=== PATIENT | female | born 1965 | race American Indian/Alaskan Native ===

== ENCOUNTER 2017-03-12 15:03 | Emergency (ER) | payer OTHER ==
[~2017-03-12] VITALS: Ht 162.6 cm; Wt 56.7 kg
[~2017-03-12 15:03] MED LIST: ANAPROX DS550 MG PO; CLARITIN10 MG PO; CRUTCH1 EACH; CYCLOBENZAPRINE5 MG PO; IBUPROFEN600 MG PO; IBUPROFEN800 MG PO; NAPROXEN500 MG PO; NORCO 5-325 TA1 EACH PO; PREDNISONE10 MG PO; TRAMADOL HCL50 MG PO; TYLENOL325 MG PO; ZOFRAN ODT4 MG PO; ZOLOFT25 MG PO
== END 2017-03-12 15:20 | disposition home or self-care (01) ==
LOC: ED 15:03
DX: Z00.8 Encounter for other general examination (principal)

== ENCOUNTER 2017-04-29 17:32 | Emergency (ER) | payer OTHER ==
[~2017-04-29] VITALS: Ht 162.6 cm; Wt 56.7 kg
== END 2017-04-29 17:58 | disposition home or self-care (01) ==
LOC: ED 17:32
DX: S69.82XD Other specified injuries of left wrist, hand and finger(s), subsequent encounter (principal); F32.9 Major depressive disorder, single episode, unspecified; X58.XXXD Exposure to other specified factors, subsequent encounter; Z90.710 Acquired absence of both cervix and uterus; Z88.8 Allergy status to other drugs, medicaments and biological substances; Z79.899 Other long term (current) drug therapy
CPT/HCPCS: 99282

== ENCOUNTER 2017-08-12 11:17 | Emergency (ER) | payer OTHER ==
[~2017-08-12] VITALS: Ht 162.6 cm; Wt 56.7 kg
== END 2017-08-12 11:38 | disposition home or self-care (01) ==
LOC: ED 11:17
DX: M25.531 Pain in right wrist (principal)

== ENCOUNTER 2018-01-22 17:17 | Emergency (ER) | payer OTHER ==
[~2018-01-22] VITALS: Ht 162.6 cm; Wt 52.2 kg
== END 2018-01-22 19:53 | disposition home or self-care (01) ==
LOC: ED 17:17
DX: S00.01XA Abrasion of scalp, initial encounter (principal); F10.129 Alcohol abuse with intoxication, unspecified; F17.200 Nicotine dependence, unspecified, uncomplicated; Z88.6 Allergy status to analgesic agent; Z88.8 Allergy status to other drugs, medicaments and biological substances; Z79.899 Other long term (current) drug therapy; W19.XXXA Unspecified fall, initial encounter; Y09 Assault by unspecified means
CPT/HCPCS: 99283

== ENCOUNTER 2019-05-12 21:22 | Emergency (ER) | payer OTHER ==
[~2019-05-12] VITALS: Ht 162.6 cm; Wt 54.0 kg
[~2019-05-12 21:22] MED LIST changes: +IBUPROFEN400 MG PO; +ONDANSETRON HCL4 MG PO; +POTASSIUM CHLO20 ME1 PO
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
[2019-05-12] MEDS ORDERED: POTASSIUM CHLO20 ME1 PO (23:09)
== END 2019-05-12 23:25 | disposition home or self-care (01) ==
LOC: ED 21:22
DX: F10.129 Alcohol abuse with intoxication, unspecified (principal); F12.129 Cannabis abuse with intoxication, unspecified; E87.6 Hypokalemia; F32.9 Major depressive disorder, single episode, unspecified; F17.200 Nicotine dependence, unspecified, uncomplicated; Z88.6 Allergy status to analgesic agent; Z88.8 Allergy status to other drugs, medicaments and biological substances; Z79.899 Other long term (current) drug therapy
CPT/HCPCS: 80053; 81001; 85025; 96360; 99285-25; G0480; J7030

== ENCOUNTER 2019-06-22 20:01 | Emergency (ER) | payer OTHER ==
[~2019-06-22] VITALS: Ht 162.6 cm; Wt 54.0 kg
--- OUTSIDE RECORDS SUMMARY | ~2019-06-22 | XMS | Clinical Summary ---
Demographics + + + | Address | [address] | | | [place] [address] | + + + | Home Phone | | + + + | Preferred Language | Unknown | + + + | Marital Status | | + + + | Pentecostal Affiliation | 1041 | + + + | Race | Unknown | + + + | Ethnic Group | Unknown | + + + Author + + + | Author | [facility] (Historical as of | | | 04-22-19) | + + + | Organization | [facility] (Historical as of | | | 04-22-19) | + + + | Address | Unknown | + + + | Phone | Unavailable | + + + Support + + +---------+ + | Name | Relationship | Address | Phone | + + +---------+ + | Margo Hinson | ECON | Unknown | | + + +---------+ + Care Team Providers + +------+ + | Care Senior Scheduler Name | Role | Phone | + +------+ + | Marek Vargas MD | PP | | + +------+ + Allergies Not on File Current Medications Not on file Active Problems Not on file Social History + +-------+ +--------+------+ | Tobacco [...] on file | | + + + Plan of Treatment Not on file Results Not on filefrom Last 3 Months"
--- OUTSIDE RECORDS SUMMARY | ~2019-06-22 | XMS | Clinical Summary ---
Demographics + + + | Address | [address] | | | [place] [address] | + + + | Home Phone | | + + + | Preferred Language | Unknown | + + + | Marital Status | | + + + | Catholic Affiliation | Unknown | + + + | Race | Unknown | + + + | Ethnic Group | Unknown | + + + Author + + + | Author | [facility] | | | and [place] | + + + | Organization | [facility] | | | and [place] | + + + | Address | Unknown | + + + | Phone | Unavailable | + + + Care Team Providers + +------+ + | Care Form Grader Name | Role | Phone | + +------+ + | Anat Pickett | PCP | | + +------+ + Allergies Not on File Medications Not on file Active Problems Not [...] on file | | + + + + + + + | Job Start Date | Occupation | Industry | + + + + | Not on file | Not on file | Not on file | + + + + + + + + | Travel History | Travel Start | Travel End | + + + + + + | No recent travel history available. | + + Last Filed Vital Signs Not on file Plan of Treatment +--------+---------+ + + + | Date | Type | Specialty | Care Team | Description | +--------+---------+ + + + | 07/06/ | Office | Otolaryngology | Gino Camara MD | | | 2019 | Visit | | [address] [place] | | | | | | [address], | | | | | | [place] [address] | | | | | | [phone] | | | | | | | | +--------+---------+ + + + + + + + + | Health Maintenance | Due Date | Last Done | Comments | + + + + + | Hepatitis C | | | | | Screening | 5 | | | + + + + + | Vaccine: | | | | | Dtap/Tdap/Td (1 - | 4 | | | | Tdap) | | | | + + + + + | Cervical Cancer | | | | | Screening (Pap) | 5 | | | + + + + + | Breast Cancer | | | | | Screening | 0 | | | + + + + + | Colorectal Cancer | 11/23/201 | | | | Screening | 5 | | | | (Colonoscopy) | | | | + + + + + | Vaccine: Zoster (1 | | | | | of 2) | 5 | | | + + + + + | Vaccine: Influenza | | | | | (#1) | 9 | | | + + + + + Results Not on filefrom Last 3 Months Insurance + +--------+ +--------+ +---------+--------+ | Payer | Benefi | Subscriber | Effect | Phone | Address | Type | | | t Plan | ID | flavio | | | | | | / | | Dates | | | | | | Group | | | | | | + +--------+ +--------+ +---------+--------+ | [facility] | IHS | | | | | Indemn | | SERVICE | YELLOW | | 019-Pr | | | ity | | | HAWK | | esent | | | | + +--------+ +--------+ +---------+--------+ | [employer] | CAREOR | [id number] | | [phone] | | Medica | | HMO | EGON | | 019-Pr | 0 | | id | | | COLUMB | | esent | | | | | | [place] | | | | | | | | PACIFI | | | | | | | | C GUNNER'S MATE G | | | | | | | | MDCD | | | | | | | | HMO OR | | | | | | + +--------+ +--------+ +---------+--------+ + +--------+ +--------+ + + | Guarantor Name | Accoun | Relation to | Date | Phone | Billing Address | | | t Type | Patient | of | | | | | | | | | | + +--------+ +--------+ + + | Steffi Bishop | Person | Self [birth year] | [address] | | | [place] | | 1965 | [phone] | [place] [address] | | | [place] | | | [address] (Home) | | + +--------+ +--------+ + + Advance Directives Patient has advance care planning documents on file. For more information, please contact:[facility] [place] [address]"
--- OUTSIDE RECORDS SUMMARY | ~2019-06-22 | XMS | Clinical Summary ---
Demographics + + + | Address | [address] | | | [place] [address] | + + + | Home Phone | | + + + | Preferred Language | Unknown | + + + | Marital Status | | + + + | Spiritism Affiliation | 1041 | + + + | Race | Unknown | + + + | Ethnic Group | Unknown | + + + Author + + + | Author | [facility] (Historical as of | | | 04-22-19) | + + + | Organization | [facility] (Historical as of | | | 04-22-19) [...] Team Providers + +------+ + | Care Eyeglass Frames Inspector Name | Role | Phone | [...]
--- OUTSIDE RECORDS SUMMARY | ~2019-06-22 | XMS | Clinical Summary ---
Demographics + + + | Address | [address] | | | [place] [address] | + + + | Home Phone | | + + + | Preferred Language | Unknown | + + + | Marital Status | | + + + | Anabaptism Affiliation | Unknown | + + + | Race | Unknown | + + + | Ethnic Group | Unknown | + + + Author + + + | Author | [facility] | | | and [place] | + + + | Organization | [facility] | | | and [place] | + + + | Address | Unknown | + + + | Phone | Unavailable | + + + Care Team Providers + +------+ + | Care Vice President Biostatistics Name | Role | Phone | + [...] 2019 | Visit | | [address] [place] | | | | | | [address], | | | | | | [place] [address] | | | | | | [phone] | | | | | | | [...] | | + +--------+ +--------+ +---------+--------+ | [employer] | IHS | | | | | Indemn | | SERVICE | YELLOW | | 019-Pr | | | ity | | | HAWK | | esent | | | | + +--------+ +--------+ +---------+--------+ | [employer] | CAREOR | [id number] | | [phone] | | Medica | | HMO | EGON | | 019-Pr | 0 | | id | | | [place]UMB | | esent | | | | | | [place] | | | | | | | | PACIFI | | | | | | | | C FAIRING WORKER | | | | | | | [...] | | Grace | | 1965 | [phone] | [place] [address] | | | [place] | | | 6 (Home) | | + +--------+ +--------+ + + Advance Directives Patient has advance care planning documents on file. For more information, please contact:[facility] [place] [address]"
--- OUTSIDE RECORDS SUMMARY | 2019-06-22 20:04 | XMS ---
PreManage Notification: SATHYA CUETO Security Event Operations Manager Events No recent Security Events currently on file CRITERIA MET - [facility] CARE PROVIDERS SHEFALI GOLDBERG [facility] 06/21/2018-Current PHONE: Unknown RUBY [facility] Clinic/Center: [facility] 12/26/2018-[facility] AT PHONE: [phone] Chandler Gastelum Locomotive Mechanic Apprentice/Animal Handler Current [facility] Regional Care Team PHONE: [phone] [facility] Primary Care 12/26/2018-[facility] AT RUBY PHONE: [phone] Guidelines Source: [facility] Guidelines Date: 01/18/2019 Care Coordination: Client receives services at [facility]. For discharge planning and coordination of care, please contact client\T\#39;s\T\nbsp;Animal Handler: Quita Banuelos [facility]\T\nbsp; [phone] Care History Medical/Surgical 07/20/2018 [facility] - PATIENT WAS SEEN BY PCP ON 06/15/18. - PATIENT HAS NO SHOWED TO APTS FOR THE PAST YEAR THE LAST PCP APT WAS ON . 07/19/2018 [facility] \T\middot;\T\nbsp; PATIENT IS A [employer] MEMBER. \T\middot;\T\nbsp; [facility]ERGENT [facility]ICAL NEED[facility]. \T\middot;\ T\nbsp; [facility]ENTS SAME DAY FOR [facility]TS IF PATIENT CALLS FIRST THING IN THE MORNING. E.D. VISIT COUNT (12 MO.) 3 [facility]. TOTAL 3 NOTE: Visits indicate total known visits. ED/UCC VISIT TRACKING (12 MO.) 06/22/2019 20:02 [facility]ia OR TYPE: Emergency COMPLAINT: - POSS SEUZURE 05/12/2019 21:23 MORE Dia OR TYPE: Emergency COMPLAINT: - WEAKNESS, NAUSEA DIAGNOSES: - Allergy status to analgesic agent status - Hypokalemia - Allergy status to oth drug/meds/biol subst status - Nicotine dependence, unspecified, uncomplicated - Alcohol abuse with intoxication, unspecified - Cannabis abuse with intoxication, unspecified - Other dedicated intermodal truck driver (current) drug therapy - Major depressive disorder, single episode, unspecified 07/18/2018 18:13 MORE Dia OR TYPE: Emergency COMPLAINT: - R HAND LAC DIAGNOSES: - Exposure to other specified factors, initial encounter - Other chcf (current) drug therapy - Laceration without foreign body of right hand, init encntr - Major depressive disorder, single episode, unspecified - Nicotine dependence, unspecified, uncomplicated - Allergy status to oth drug/meds/biol subst status INPATIENT VISIT TRACKING (12 MO.) No inpatient visits to display in this time frame [email or web address]
--- NOTE | 2019-06-23 13:02 | EKG ---
[facility] [address] [place] [address] Signed Sinus tachycardia with fusion complexes Right bundle branch block Left anterior fascicular block Bifascicular block Prolonged QT Abnormal ECG When compared with ECG of 17-JUN-2018 17:54, fusion complexes are now present Vent. rate has increased BY 41 BPM Left anterior fascicular block is now present Non-specific change in ST segment in Anterior leads Confirmed by JOHN RUST MD ([id number]) on 06/23/2019 1:02:18 PM Electronically Signed By: JOHN RUST MD 06/23/19 1302 PATIENT NAME: SATHYA CUETO Electrocardiogram DATE OF : 65 PHYSICIAN: JOHN RUST MD REPORT #: [id number] REPORT IS CONFIDENTIAL AND NOT TO BE RELEASED WITHOUT AUTHORIZATION
== END 2019-06-22 22:40 | disposition short-term general hospital (02) ==
LOC: ED 20:01
DX: G40.901 Epilepsy, unspecified, not intractable, with status epilepticus (principal); F17.200 Nicotine dependence, unspecified, uncomplicated; Z88.6 Allergy status to analgesic agent; Z88.8 Allergy status to other drugs, medicaments and biological substances; F32.9 Major depressive disorder, single episode, unspecified; Z79.899 Other long term (current) drug therapy
CPT/HCPCS: 31500; 31720; 36600; 51702; 70450; 71045; 80053; 81001; 82803; 83605; 85025; 93005; 93010; 94002; 99285-25; G0480; J0330; J1953; J2060; J7030; J7060

== ENCOUNTER 2019-07-24 10:31 | Observation (INO) | payer MEDICAID, OTHER ==
[~2019-07-24] VITALS: Ht 162.6 cm; Wt 54.0 kg
--- OUTSIDE RECORDS SUMMARY | ~2019-07-24 | XMS | Encounter Summary ---
Demographics + + + | Address | [address] | | | [place] [address] | + + + | Home Phone | | + + + | Preferred Language | Unknown | + + + | Marital Status | Single | + + + | Druze Affiliation | 1041 | + + + | Race | Unknown | + + + | Ethnic Group | Unknown | + + + Author + + + | Author | [facility] | | | and [place] | + + + | Organization | [facility] | | | [...] Team Providers + +------+ + | Care Fire Prevention Research Engineer Name | Role | Phone | + +------+ + PCP | Unavailable | + +------+ + Encounter Details +--------+ + + + + | Date | Type | Department | Care Team | Description | +--------+ + + + + | 08/18/ | Hospital | [facility] [place] | Conversion | Pain | | 2013 | Encounter | CONVERSION [address] | Transaction, | | | | | [address] | Provider Unknown | | | | | [place] | | | | | | [phone] | (Fax) | | | | | [phone] | | | +--------+ + + + [...] recent travel history available. | + + documented as of this encounter Plan of Treatment +--------+---------+ + + + | Date | Type | Specialty | Care Team | Description | +--------+---------+ + + + | 08/07/ | Office | Otolaryngology | Gino Camara MD | | | 2019 | Visit | | [address] [place] | | | | | | [address], | | | | | | [place] [address] | | | | | | [phone] | | | | | | | | +--------+---------+ + + + documented as of this encounter Procedures + +--------+ [...]
--- OUTSIDE RECORDS SUMMARY | ~2019-07-24 | XMS | Encounter Summary ---
Demographics + + + | Address | [address] | | | [place] [address] | + + + | Home Phone | | + + + | Preferred Language | Unknown | + + + | Marital Status | Single | + + + | Anglican Affiliation | 1041 | + + + | Race | Unknown | + + + | Ethnic Group | Unknown | + + + Author + + + | Author | [facility] | | | and [place] | + + + | Organization | [facility] | | [...] Team Providers + +------+ + | Care Manager Green Name | Role | Phone | + +------+ + PCP | Unavailable | + +------+ + Encounter Details +--------+ + + + + | Date | Type | Department | Care Team | Description | +--------+ + + + + | 08/18/ | Hospital | [facility] [place] IP | Conversion | Pain | | 2013 | Encounter | CONVERSION [address] | Transaction, | | | | | [address] | Provider Unknown | | | | | [place] | | | | | | [phone] | (Fax) | | | | | [phone] | | | +--------+ + + + [...] [place], | | | | | | [place] [address] | | | | | | [phone] | | | | | | | [...]
--- OUTSIDE RECORDS SUMMARY | ~2019-07-24 | XMS | Encounter Summary ---
Demographics + + + | Address | [address] | | | [place] [address] | + + + | Home Phone | | + + + | Preferred Language | Unknown | + + + | Marital Status | Single | + + + | Faith Affiliation | 1041 | + + + | Race | Unknown | + + + | Ethnic Group | Unknown | + + + Author + + + | Author | [facility] | | | and [place] | + + + | Organization | [facility] | | [...] Team Providers + +------+ + | Care Benefits Assistant Name | Role | Phone | + +------+ + PCP | Unavailable | + +------+ + Encounter Details +--------+ + + + + | Date | Type | Department | Care Team | Description | +--------+ + + + + | 08/18/ | Hospital | [facility] [place] [place] | Conversion | Pain | | 2013 | Encounter | CONVERSION [address] | Transaction, | | | | | [address] | Provider Unknown | | | | | [place] | | | | | | [phone] | (Fax) | | | | | [phone] | | | +--------+ + + + [...] [place], | | | | | | [place] [address] | | | | | | [phone] | | | | | | | [...] for this | | | e | 5:26 AM | | procedure are in the | | | | PDT | | results section. | + +--------+ + + + documented in this encounter Results XR Chest 1 Vw (05/06/2009 5:26 AM PDT) + + | Specimen | [...]
--- OUTSIDE RECORDS SUMMARY | ~2019-07-24 | XMS | Encounter Summary ---
Demographics + + + | Address | [address] | | | [place] [address] | + + + | Home Phone [...] Organization | [facility] [...] Team Providers + +------+ + | Care Feather Separator Name | Role | Phone | + +------+ + PCP | Unavailable | + +------+ + Encounter Details +--------+ + + + + | Date | Type | Department | Care Team | Description | +--------+ + + + + | 08/18/ | Hospital | [facility] | Conversion | Pain | | 2013 | Encounter | CONVERSION [address] | Transaction, | | | | | [address] | Provider Unknown | | | | | [place] | | | | | | [phone] | (Fax) | | | | | [phone] | | | +--------+ + + + [...] [place], | | | | | | [place] [address] | | | | | | [phone] | | | | | | | [...]
--- OUTSIDE RECORDS SUMMARY | ~2019-07-24 | XMS | Encounter Summary ---
Demographics + + + | Address | [address] | | | [place] [address] | + + + | Home Phone | | + + + | Preferred Language | Unknown | + + + | Marital Status | Single | + + + | Worship Affiliation | [phone] | + + + [...] Team Providers + +------+ + | Care Terrazzo Layer Name | Role | Phone | + [...] Provider Unknown | | | | | [place] | | | | | | [phone] | (Fax) | | | | | [phone] | | | +--------+ + + + [...] [place], | | | | | | [place] [address] | | | | | | [phone] | | | | | | | [...]
--- OUTSIDE RECORDS SUMMARY | ~2019-07-24 | XMS | Encounter Summary ---
Demographics + + + | Address | [address] | | | [place] [address] | + + + | Home Phone | | + + + | Preferred Language | Unknown | + + + | Marital Status | Single | + + + | Christian Affiliation | 1041 | + + + | Race | Unknown | + + + | Ethnic Group | Unknown | + + + Author + + + | Author | [facility] | | | and [place] | + + + | Organization | [facility] | | | [...] Team Providers + +------+ + | Care Airport Planner Name | Role | Phone | + +------+ + | Anat Pickett | PCP | | + +------+ + Reason for Referral Evaluate & Treat (Routine) + + + + + + + | Status | Reason | Specialty | Diagnoses / | Referred By | Referred To | | | | | Procedures | Contact | Contact | + + + + + + + | Pending | Specialty | Home Health | Diagnoses | Saniya, | | | Review | Services | Services | Status | MD Beto | | | | Required | | epilepticus | [address] | | | | | | ([facility]) | COURT | | | | | | | [place], [place] | | | | | | | [address] | | | | | | | Phone: | | | | | | | [phone] | | | | | | | Fax: | | | | | | | [phone] | | + + + + + + + Reason for Visit Auth/Cert +--------+--------+ + + + + | Status | Reason | Specialty | Diagnoses / | Referred By | Referred To | | | | | Procedures | Contact | Contact | +--------+--------+ + + + + | | | | Diagnoses | | | | | | | Seizure | | | +--------+--------+ + + + + Encounter Details +--------+ + + + + | Date | Type | Department | Care Team | Description | +--------+ + + + + | 06/22/ | Hospital | [facility] | Cary Chapa DO | Status epilepticus | | 2019 - | Encounter | [facility] | [address] | ([facility]); Generalized | | | | CARE FLOOR [address] | [place] [address] | tonic-clonic seizure | | 07/03/ | | [address] | [phone] | ([facility]); H/O ETOH | | 2019 | | [place], [place] | | abuse; Polysubstance | | | | [address] | Deepak Stanton MD | abuse ([facility]); | | | | [phone] | [address] | Methamphetamine | | | | | [place] [address] | intoxication ([facility]); | | | | | [phone] | 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[facility]); | | | | | | Post-ictal state | | | | | Beto Kothari MD [address] | ([facility]); Altered | | | | | [address] | mental status, | | | | | [place] [address] | unspecified altered | | | | | [phone] | mental status type; | | | | | | Seng coma scale | | | | | Freddy Gastelum MD | total score 3-8, at | | | | | [address] [facility] | hospital admission | | | | | [place], [place] | ([facility]); Hypotension, | | | | | [address] | unspecified | | | | | | hypotension type; | | | | | | Orthostatic | | | | | | hypotension; History | | | | | | of posttraumatic | | | | | | stress disorder | | | | | | (PTSD) | +--------+ + + + + Social [...] + + + | Blood Pressure | 98/66 | 07/03/2019 4:38 PM | | | | | PDT | | + + + + + | Pulse | 73 | 07/03/2019 4:38 PM | | | | | PDT | | + + + + + | Temperature | 36.7 C (98 F) | 07/03/2019 4:38 PM | | | | | PDT | | + + + + + | Respiratory Rate | 16 | 07/03/2019 4:38 PM | | | | | PDT | | + + + + + | Oxygen Saturation | 97% | 07/03/2019 4:38 PM | | | | | PDT | | + + + + + | Inhaled Oxygen | - | - | | | Concentration | | | | + + + + + | Weight | 53.3 kg (117 lb 8.1 | 07/02/2019 8:00 PM | per chart | | | oz) | PDT | | + + + + + | Height | 162.6 cm (5' 4") | 06/22/2019 11:35 PM | | | | | PDT | | + + + + + | Body Mass Index | 20.17 | 06/22/2019 11:35 PM | | | | | PDT [...] + + documented as of this encounter Discharge Summaries Beto Kothari MD - 06/30/2019 8:17 AM PDTFormatting of this note might be different from sofi borden. [facility] Service: Hospitalist Discharge Summary Date of Admission: 06/22/2019 Date of Discharge: 07/03/2019 Discharge Physician: Beto Kothari MD Treatment Team: Anastasia Argueta MD Discharge Diagnoses: Principal Problem: Status epilepticus Active Problems: Smoker History of alcohol abuse Major depressive disorder Chronic hepatitis C without hepatic coma History of posttraumatic stress disorder (PTSD) Post-ictal state Methamphetamine intoxication MDMA abuse Resolved Problems: Generalized tonic-clonic seizure . Procedures: * No surgery found * Significant Diagnostic Studies: Recent Results (from the past 360 hour(s)) XR Chest AP Portable Narrative CHEST PORTABLE ONE VIEW CLINICAL INFORMATION: Endotracheal tube and orogastric tube placement. COMPARISON: Earlier examination of this same date. Impression 1. The tip of the endotracheal tube is 2.3 cm above the óscar. There is an NG tube which extends into the stomach. 2. There is patchy opacity in the left lung base suggesting atelectasis. Right lung clear. 3. Cardiomediastinal contours are stable. 4. No pneumothorax. Signed by: Curiel, M.D., Zully Sign Date/Time: 06/23/2019 12:23 AM XR Chest AP Portable Narrative CHEST PORTABLE ONE VIEW CLINICAL INFORMATION: New central line. COMPARISON: XR CHEST AP PORTABLE (06/22/2019); FINDINGS: A left-sided central line is been placed. The tip of the catheter is 6 cm below the óscar at the cavoatrial junction. No pneumothorax is noted. The endotracheal tube tip is 3.9 cm above the óscar. Nasogastric tube is seen coursing through the mediastinum below the acquired vyhzt-uy-noor into the upper abdomen. Overlying EKG leads and oxygen tubing are noted. The heart is normal in size. The vascular pattern appears relatively normal. There is mild atelectasis at the right lung base near the hemidiaphragm. The osseous structures are intact. Impression Left-sided central line, endotracheal tube and nasogastric tube are in satisfactory position. No evidence of left-sided pneumothorax. Mild atelectasis at the right lung base. Signed by: Mumtaz Barbour Edward Sign Date/Time: 06/23/2019 6:[address] Head wo Contrast Narrative CT HEAD WITHOUT CONTRAST CLINICAL INFORMATION: 53-year-old with nontraumatic seizure. COMPARISON: CT head 06/22/2019. PROCEDURE: Axial images were obtained through the head without IV contrast. Multiplanar reformations were obtained from the acquisition data. At least one of the following CT dose optimization techniques were used: Automated exposure control; Adjustment of mA and/or kV according to patient size; Use of iterative reconstruction technique. FINDINGS: Brain: No intracranial hemorrhage is present. [...] soft tissues: Stable. Orbits: Left cataract surgery. Impression 1. No acute intracranial findings. 2. Severe left maxillary sinus opacification. Signed by: Daija John Steven Sign Date/Time: 06/25/2019 3:33 PM XR Chest AP Portable Narrative CHEST PORTABLE ONE VIEW CLINICAL INFORMATION: Diffuse wheezing. COMPARISON: XR CHEST AP PORTABLE (06/23/2019); XR CHEST AP PORTABLE (06/22/2019); X CHEST (06/22/2019); FINDINGS/IMPRESSION: 1. EKG leads. 2. No opacities or effusions. 3. Cardiomediastinal contours are stable. 4. No pneumothorax. 5. 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 Signed by: Daija Rodas Gregory Sign Date/Time: 06/26/2019 8:59 AM Results for orders placed during the hospital encounter of 06/22/19 ECHO Complete Narrative Normal Echo Results for orders placed or performed during the hospital encounter of 06/22/19 ECG 12 lead Result Value Ref Range INTERPRETATION TEXT Normal sinus rhythm Right bundle branch block Left anterior fascicular block Bifascicular block Prolonged Q-T interval Abnormal ECG When compared with ECG of 08-MAY-2009 05:24, (RBBB and left anterior fascicular block) is now Present Confirmed by Max Baxter MD ([id number]) on 06/26/2019 7:14:20 PM BRIEF HISTORY OF PRESENTATION: Steffi Bishop is a 53 y.o. female who presented per Per ICU 53 y.o.femalewith significant past medical history of PTSD, depression, alcohol abuse, at least one seizure (is listed as the reaction to aspirin in her allergies), hepatitis C vi ral infection and drug abusewho presents withstatus epilepticus. The [facility] EMS were rafi led and patient was found unresponsive and then had a generalized tonic-clonic seizure. Per report there were multiple people on site but no good history was obtainable. She had 3 more seizures en route to the ED, each lasting approximately 30 seconds. She received a total of 8 mg of Valium. In the ED she had two more seizures and was given 4 mg Ativan and then load ed with 2 gm Keppra. She was intubated in the ED for airway protection. Admitted to ICU for further monitoring. ICU Timeline: 06/23: admitted to ICU; continuous EEG showing status epilepticus. Worsening hypotension not significantly responsive to neosynephrine. Started on Levophed and CVC placed. Remai ns on MV" HOSPITAL COURSE: Tobacco abuse she is counseled on cessation History of alcohol abuse she is counseled on cessation Methamphetamine intoxication With MDMA abuse counseled on cessation She was advised to not drive or swim or operate sharp or heavy device Patient was discharged in stable condition. Addressed all of their questions and covered wi th side affects of newly added medications. she was cleared per consulting services. Past Medical History: Diagnosis Date Alcohol abuse Depression Drug abuse (HCC) methamphetamine and MDMA Generalized tonic-clonic seizure (HCC) 06/22/2019 PTSD (post-traumatic stress disorder) Status epilepticus ([facility]) 06/22/2019 Past Surgical History: Procedure Laterality Date ANKLE SURGERY Right ankle pins and plate CHOLECYSTECTOMY HYSTERECTOMY Allergies Allergen Reactions Aspirin Other (See Comments) seizure No medications prior to admission. DISCHARGE EXAM Vital Signs: BP 91/58 | Pulse 72 | Temp 36.8 C (98.2 F) (Oral) | Resp 16 | Ht 1.626 m (5' 4") | Wt 53.3 kg (117 lb 8.1 oz) Comment: per chart | LMP (LMP Unknown) | SpO2 100% | BMI 20.1 7 kg/m General appearance: alert, appears stated age, cooperative and no distress Head: Normocephalic, without obvious abnormality, atraumatic Neck: no adenopathy, no carotid bruit, no JVD, supple, symmetrical, trachea midline and thy roid not enlarged, symmetric, no tenderness/mass/nodules Lungs: clear to auscultation bilaterally Heart: regular rate and rhythm, S1, S2 normal, no murmur, click, rub or gallop Abdomen: soft, non-tender; bowel sounds normal; no masses, no organomegaly Extremities: extremities normal, atraumatic, no cyanosis or edema Pulses: 2+ and symmetric Neurologic: Grossly normal AXO3 DATA No results for input(s): WBC, HGB, HCT, PLT in the last 72 hours. Recent Labs 07/03/19 1126 07/03/19 0417 07/02/19 0430 07/01/19 0741 NA -- -- -- 140 K 4.1 3.9 4.1 3.8 | 3.9 CL -- -- -- 103 CO2 -- -- -- 29 BUN -- -- -- 8 CREA -- -- -- 0.61 CALCIUM -- -- -- 9.1 PHOS -- 4.6 4.6 3.6 | 3.5 ALBUMIN -- -- -- 4.4 No results for input(s): TROPONIN, BNP in the last 72 hours. No results for input(s): PROCALCITONI in the last 72 hours. Microbiology Results (72 hrs) Procedure Component Value Units Date/Time Culture, Blood [[id number]] Collected: 06/27/19 170 Order Status: Completed Lab Status: Preliminary result Updated: 06/29/19726 Specimen: Peripheral Blood Special Requests R.AC Special Requests [place] [facility] [place] [address] RESULT NO GROWTH 2 DAYS RESULT Testing performed at [facility], [address] [place] [id number] Comment: Testing performed at [facility], [address] [place] [address] Culture, Blood [[id number]] Collected: 06/27/191656 Order Status: Completed Lab Status: Preliminary result Updated: 06/29/19726 Specimen: Peripheral Blood Special Requests L.AC Special Requests Testing [place] [facility] [place] [address] RESULT NO GROWTH 2 DAYS RESULT Testing performed at [facility], [address] [place] [id number] Comment: Testing performed at [facility], [address] [place] [address] Disposition: prison Condition: Stable Code Status: Full Code Discharge Procedure Orders Referral to Home Health Referral Priority: Routine Referral Type: Evaluate & Treat Referral Reason: Specialty Services Required Requested Specialty: Home Health Services Number of Visits Requested: 1 Follow up: RAFFI Ji [address] [place] [id number] Follow up on 07/04 at 1 PM. [facility] [address] [place] [address] Main Schedule an appointment as soon as possible for a visit intake [employer] [place] [facility] [address] [place] [address], [place] [address] Main Go on 07/20/2019 intake; Please arrive at 8:30 a.m. to complete paperwork. Appointment will begin at 9:00 a. m. Anat Pickett, RAFFI [address] [place] [address] Schedule an appointment as soon as possible for a visit in [address] [facility] [address] [place] [id number] Discharge Medications New Medications Details midodrine 10 MG tablet Take 1 tablet by mouth 3 times daily as needed (for SBP<90). aka: PROAMATINE phenytoin 300 MG ER capsule Take 1 capsule by mouth every morning. aka: DILANTIN sertraline 25 mg tablet Take 1 tablet by mouth Daily. aka: ZOLOFT Start: 07/04/2019 thiamine 100 mg tablet Take 1 tablet by mouth Daily. aka: VITAMIN B-1 Discharge took over 30 minutes, to include final examination, discussion of admission, and preparation of prescriptions, instructions for on-going care, follow-up and documentation o f discharge summary. Beto Kothari MD 07/03/2019 documented in t his encounter Discharge Instructions Instructions Yaron Gallego, Brandon Marrufo, RN - 06/30/2019 Recovering from Addiction: Continuing with Counseling The road to recovery can be tough. But working with a counselor can help make your recovery smoother and keep you on track. A counselor can help you decide which lifestyle changes you want to make to stay sober. Also, consider talking with a counselor about other issues you may want to work on. He or she can help you find resources for anger management, problem-klever ving skills, or assertiveness training. Be aware of your triggers Triggers are things that make you want to use again. They can be people you used with or pl aces, things, and events that make you want to use. Stress and feelings like loneliness, anx iety, or depression can also make you want to use again. When you know what your triggers ar e, you can plan ways to avoid them when possible. To find your triggers, get a piece of cheng r. List the people, places, events, or feelings that could make you want to use again. Keep this paper. Add to it as needed. Work with your counselor on how to cope with these triggers without using. Getting help Once you admit that you have a substance abuse problem, there are many ways to find help. Contact your Employee Assistance Program (EAP) or Human Resources department. Talk to your primary care doctor and ask for a referral to an [facility] for a n evaluation. Look in the white pages of your phone book for local chapters of these groups: ? Alcoholics Anonymous ? Cocaine Anonymous ? Marijuana Anonymous ? Narcotics Anonymous Look in the yellow pages of your phone book under one of the following: ? Alcoholism Information and Treatment Center ? Drug Abuse and Addiction Information and Treatment Center Look online for treatment centers near you: ? Substance Abuse and Mental Health Services Administration's "treatment finder": http://fi ndtreatment.samhsa,gov Contact one of these national groups: ? National [place] on Alcoholism and Drug Dependence 505-886-6281 ? National Drug and Alcohol Treatment Referral Service 472-455-XOHI (801-858-9605) Date Last Reviewed: 10/07/201619996056-3075 [employer]. [address] [place] [address]. All righ ts reserved. This information is not intended as a substitute for professional medical care. Always follow your healthcare professional's instructions. Thiamine, Vitamin B1 tablets What is this medicine? THIAMINE (THAHY uh min) is a vitamin B1. It is added to a healthy diet to prevent or to noreen at low vitamin B1 levels. This vitamin may be used for other purposes; ask your health care provider or pharmacist if you have questions. How should I use this medicine? Take this medicine by mouth with a glass of water. Follow the directions on the package or prescription label. For best results take this medicine with food. Take your medicine at reg ular intervals. Do not take your medicine more often than directed. Talk to your lift builder whole regarding the use of this medicine in children. While this medici ne may be prescribed for selected conditions, precautions do apply. What side effects may I notice from receiving this medicine? Side effects that you should report to your doctor or health career information specialist as soon as p ossible: allergic reactions like skin rash, itching or hives, swelling of the face, lips, or tong ue chest tightness fast, irregular heartbeat irritable, restless nausea, vomiting sweating unusually bleeding or bruising Side effects that usually do not require medical attention (report to your doctor or health career information specialist if they continue or are bothersome): sneezing What may interact with this medicine? Interactions are not expected. What if I miss a dose? If you miss a dose, take it as soon as you can. If it is almost time for your next dose, ta ke only that dose. Do not take double or extra doses. Where should I keep my medicine? Keep out of the reach of children. Store at room temperature between 15 and 30 degrees C (59 and 85 degrees F). Protect from h eat and light. Throw away any unused medicine after the expiration date. What should I tell my health care provider before I take this medicine? They need to know if you have any of the following conditions: Wernicke's disease an unusual or allergic reaction to B vitamins, other medicines, foods, dyes, or preserva tives or trying to get breast-feeding What should I watch for while using this medicine? Follow a healthy diet. Taking a vitamin supplement does not replace the need for a balanced diet. Some foods that have this vitamin naturally are yeast, beans, peas, nuts, pork, and b eef. Limit alcohol, smoking and stress. Too much of this vitamin can be unsafe. Talk to your doctor or health care provider about h ow much is right for you. NOTE:This sheet is a summary. It may not cover all possible information. If you have questi ons about this medicine, talk to your doctor, pharmacist, or health care provider. Copyright 2019 [employer] Phenytoin Does this test have other names? Dilantin test What is this test? This test monitors the level of the seizure medicine phenytoin (Dilantin) in your blood. Ph enytoin is an anticonvulsant medicine given to control seizures. Why do I need this test? You may need this test if you take phenytoin. Your healthcare provider must monitor your bl ood to make sure you are getting the correct dose. Too much can be toxic. Not enough leaves your seizures uncontrolled. You may have this test more often when you first start taking the medicine and then regular ly throughout treatment. You may need to repeat the test if the medicine doesn't seem to con trol your seizures or if any of your other prescription medicines change. What other tests might I have along with this test? Your healthcare provider also might order other blood tests, including: Complete blood count Blood urea nitrogen and creatinine test to check kidney function Liver function panel or other liver tests Glucose test to measure your blood sugar, because phenytoin can cause your blood sugar t o rise Blood tests to measure the sodium level in your blood Tests for other medicine levels Urinalysis What do my test results mean? Test results may vary depending on your age, gender, health history, the method used for th e test, and other things. Your test results may not mean you have a problem. Ask your health care provider what your test results mean for you. Results are given in micrograms per milliliter (?/mL). The normal therapeutic range for chi ldren and adults is 10 to 20 ?/mL (8 to 15 ?/mL in newborns). The therapeutic range is just a guide. Your healthcare provider will figure out the best dose and blood level for you base d in part on how well your seizures are controlled and how you feel. High levels of phenytoi n in your blood can be toxic. How is this test done? The test is done with a blood sample. A needle is used to draw blood from a vein in your ar m or hand. Does this test pose any risks? Having a blood test with a needle carries some risks. These include bleeding, infection, br uising, and feeling lightheaded. When the needle pricks your arm or hand, you may feel a sli ght sting or pain. Afterward, the site may be sore. What might affect my test results? Adjusting the dosage of any other medicine or taking a new medicine prescription or nonpr escription can affect the level of phenytoin in your blood. Tell your healthcare provider if you are taking any of these medicines: Amiodarone for an irregular heartbeat Chlordiazepoxide or diazepam for anxiety Dicumarol, a blood thinner Disulfiram, to treat alcoholism Estrogens for hormone replacement Aspirin and medicines with salicylates Sulfonamides to treat infections Tolbutamide used for diabetes management Famotidine for ulcers Isoniazid, an antibiotic Methylphenidate for attention deficit disorders Phenothiazines for nausea Trazodone for depression and sleep problems Primidone or valproic acid for seizures Fluconazole for yeast infections Drinking alcohol also can raise the level of phenytoin in your blood. A change in metabolis m also can affect your phenytoin levels. Before taking a new prescription or an cquw-mkk-eql nter medicine, it's best to check about medicine interactions with your healthcare provider or pharmacist. How do I get ready for this test? You don't need to prepare for this test. Be sure your healthcare provider knows about all m edicines, herbs, vitamins, and supplements you are taking. This includes medicines that don' t need a prescription and any illicit drugs you may use. [id number] [employer]. [address] [place] [address]. All righ ts reserved. This information is not intended as a substitute for professional medical care. Always follow your healthcare professional's instructions. Midodrine tablets Brand Names: Orvaten, ProAmatine What is this medicine? MIDODRINE ([place] sloan dreen) is used to treat low blood pressure in patients who have symptoms like dizziness when going from a sitting to a standing position. How should I use this medicine? Take this medicine by mouth with a glass of water. Follow the directions on the prescriptio n label. The last dose of this medicine should not be taken after the evening meal or less t katz 4 hours before bedtime. When you lie down for any length of time after taking this medic ine, high blood pressure can occur. Do not take this medicine if you will be lying down for any length of time. Do not take your medicine more often than directed. Do not stop taking e xcept on your doctor's advice. Talk to your lift builder whole regarding the use of this medicine in children. Special care may be needed. What side effects may I notice from receiving this medicine? Side effects that you should report to your doctor or health career information specialist as soon as p ossible: awareness of heart beating blurred vision headache irregular heartbeat, palpitations, or chest pain pounding in the ears skin rash, hives Side effects that usually do not require medical attention (report to your doctor or health career information specialist if they continue or are bothersome): change in heart rate chills goose bumps increased need to urinate itching stomach pain tingling in the skin or scalp What may interact with this medicine? Do not take this medicine with any of the following medications: MAOIs like Carbex, Eldepryl, Marplan, Nardil, and Parnate medicines called ergot alkaloids medicines for colds and breathing difficulties or weight loss procarbazine This medicine may also interact with the following medications: cimetidine digoxin flecainide fludrocortisone metformin procainamide quinidine ranitidine triamterene medicines called alpha-blockers like doxazosin, prazosin, and terazosin What if I miss a dose? If you miss a dose, take it as soon as you can. If it is almost time for your next dose, ta ke only that dose. Do not take double or extra doses. Where should I keep my medicine? Keep out of the reach of children. Store at room temperature between 15 and 30 degrees C (59 and 86 degrees F). Throw away any unused medicine after the expiration date. What should I tell my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 Magnesium replacement - NON ICU AND Magnesium AND magnesium oxide AND magnesium sulfate AND magnesium sulfa te, ondansetron, Potassium replacement - NON ICU AND Potassium AND potassium chlorid e AND potassium chloride AND potassium chloride IVPB (other volumes & diluents) AN D potassium chloride IVPB (other volumes & diluents), sodium chloride 0.9%, sodium chlorid e 0.9%, sodium chloride 0.9%, sodium chloride 0.9%, sodium chloride 0.9% OBJECTIVE Vital Signs: BP (!) 89/50 | Pulse 84 | Temp 36.8 C (98.3 F) (Oral) | Resp 16 | Ht 1.626 m (5' 4" ) | Wt 53.2 kg (117 lb 4.6 oz) | SpO2 96% | BMI 20.13 kg/m Intake/Output Summary (Last 24 hours) at 06/29/2019 1121 Last data filed at 06/29/2019 0927 Gross per 24 hour Intake 3400.79 ml Output 6725 ml Net -3324.21 ml General appearance: alert, appears stated age, cooperative and no distress Head: Normocephalic, without obvious abnormality, atraumatic Neck: no adenopathy, no carotid bruit, no JVD, supple, symmetrical, trachea midline and thy roid not enlarged, symmetric, no tenderness/mass/nodules Lungs: clear to auscultation bilaterally Heart: regular rate and rhythm, S1, S2 normal, no murmur, click, rub or gallop Abdomen: soft, non-tender; bowel sounds normal; no masses, no organomegaly Extremities: extremities normal, atraumatic, no cyanosis or edema Pulses: 2+ and symmetric Neurologic: Grossly normal AXO3 DATA BMP 141 107 5* 95 3.6 28 0.6 CaMgPhos 8.6 1.9 2.1* LFT 52* 68 20 3.1* CBC 4.58 12.4 183 35.9 Coag Last labs from current encounter as of 06/29/19-11:21 No results for input(s): TROPONIN, BNP in the last 72 hours. No results for input(s): PROCALCITONI in the last 72 hours. Recent Labs 06/29/19 0455 06/28/19 0142 WBC 4.58 5.18 HGB 12.4 12.6 HCT 35.9 37.0 PLT 183 198 Recent Labs 06/29/19 0501 06/28/19 1701 06/28/19 0142 NA 141 -- -- 139 K 3.6 3.5 < > 3.6 CL 107 -- -- 107 CO2 28 -- -- 26 BUN 5* -- -- 11 CREA 0.6 -- -- 0.5 CALCIUM 8.6 -- -- 8.0* MG 1.9 -- -- 1.8 PHOS 2.1* -- -- 2.8 ALBUMIN 3.1* -- -- -- < > = values in this interval not displayed. Recent Labs Lab 06/29/19 0501 MG 1.9 Microbiology Results (72 hrs) No results found for the last 72 hours. Recent Results (from the past 360 hour(s)) XR Chest AP Portable Narrative CHEST PORTABLE ONE VIEW CLINICAL INFORMATION: Endotracheal tube and orogastric tube placement. COMPARISON: Earlier examination of this same date. Impression 1. The tip of the endotracheal tube is 2.3 cm above the óscar. There is an NG tube which extends into the stomach. 2. There is patchy opacity in the left lung base suggesting atelectasis. Right lung clear. 3. Cardiomediastinal contours are stable. 4. No pneumothorax. Signed by: Daija Curiel Paula Sign Date/Time: 06/23/2019 12:23 AM XR Chest AP Portable Narrative CHEST PORTABLE ONE VIEW CLINICAL INFORMATION: New central line. COMPARISON: XR CHEST AP PORTABLE (06/22/2019); FINDINGS: A left-sided central line is been placed. The tip of the catheter is 6 cm below the óscar at the cavoatrial junction. No pneumothorax is noted. The endotracheal tube tip is 3.9 cm above the óscar. Nasogastric tube is seen coursing through the mediastinum below the acquired [id number] into the upper abdomen. Overlying EKG leads and oxygen tubing are noted. The heart is normal in size. The vascular pattern appears relatively normal. There is mild atelectasis at the right lung base near the hemidiaphragm. The osseous structures are intact. Impression Left-sided central line, endotracheal tube and nasogastric tube are in satisfactory position. No evidence of left-sided pneumothorax. Mild atelectasis at the right lung base. Signed by: Mumtaz Barbour Edward Sign Date/Time: 06/23/2019 6:[address] Head wo Contrast Narrative CT HEAD WITHOUT CONTRAST CLINICAL INFORMATION: 53-year-old with nontraumatic seizure. COMPARISON: CT head 06/22/2019. PROCEDURE: Axial images were obtained through the head without IV contrast. Multiplanar reformations were obtained from the acquisition data. At least one of the following CT dose optimization techniques were used: Automated exposure control; Adjustment of mA and/or kV according to patient size; Use of iterative reconstruction technique. FINDINGS: Brain: No intracranial hemorrhage is present. [...] soft tissues: Stable. Orbits: Left cataract surgery. Impression 1. No acute intracranial findings. 2. Severe left maxillary sinus opacification. Signed by: Daija John Steven Sign Date/Time: 06/25/2019 3:33 PM XR Chest AP Portable Narrative CHEST PORTABLE ONE VIEW CLINICAL INFORMATION: Diffuse wheezing. COMPARISON: XR CHEST AP PORTABLE (06/23/2019); XR CHEST AP PORTABLE (06/22/2019); X CHEST (06/22/2019); FINDINGS/IMPRESSION: 1. EKG leads. 2. No opacities or effusions. 3. Cardiomediastinal contours are stable. 4. No pneumothorax. 5. 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 Signed by: Daija Rodas Gregory Sign Date/Time: 06/26/2019 8:59 AM Results for orders placed or performed during the hospital encounter of 06/22/19 ECG 12 lead Result Value Ref Range INTERPRETATION TEXT Normal sinus rhythm Right bundle branch block Left anterior fascicular block Bifascicular block Prolonged Q-T interval Abnormal ECG When compared with ECG of 08-MAY-2009 05:24, (RBBB and left anterior fascicular block) is now Present Confirmed by Max Baxter MD ([id number]) on 06/26/2019 7:14:20 PM I have reviewed the above labs and radiology reports. PROBLEM LIST Principal Problem: Status epilepticus Active Problems: Smoker History of alcohol abuse Major depressive disorder Chronic hepatitis C without hepatic coma History of posttraumatic stress disorder (PTSD) Post-ictal state Methamphetamine intoxication MDMA abuse I attest that this clinical assessment using ASPEN criteria 1 is accurate for this patient and supports that as a medical diagnosis. A specific nutrition treatment plan will be imple mented as outlined in the registered dietitian's plan of care. ASSESSMENT & PLAN Status epilepticus likely alcohol intoxication/withdrawal also positive for meth per repor t recently she came to the hospital at [facility]. CT scan was done over there that was ne tomasa. She will be on 300 mg of phenytoin extended release on discharge. Neurology has be en following. Hypotension could be volume related she does not look septic negative blood cx X2 She is o ff dopamine gtt Wean steroids continue midodrine /IVF Tobacco abuse she is counseled on cessation History of alcohol abuse she is counseled on cessation Major depressive disorder denied being suicidal will need close follow up with PCP chronic hepatitis C without hepatic coma follow up with GI/ID as an outpatient History of posttraumatic stress disorder Methamphetamine intoxication With MDMA abuse counseled on cessation Low k and mag and phos replete via electrolyte protocol DVT/GI px PT/OT eval and tx and CW for discharge planning Review of H/P, imaging and labs, formulation of assessment and plan, discussion with the pa tient/family, staff, and providers. Portions of this chart may have been copied from previous notes for continuity of care purp oses. Disposition: Admitted Code Status: Full Code Beto Kothari MD 06/29/2019 Carla Fletcher R N - 06/28/2019 9:46 PM [id number]: Notified Dr. Campo of potassium of 3.5, per the protocol if pt needs another replacement, notify provider. Dr. Campo ok with giving the recommended 40 mEq of oral potassium. VSS throughout shift. Pt's MAP remained >65. Hourly rounding uneventful. Chart check complete. Carla Shaver, RN Freddy Edwards MD - 1 2:54 PM PDT [facility] Adult Hospitalist Progress Note Hospital Day: 6 Patient Summary: Briefly, 53-year-old female with extensive past medical history most significant for PTSD, depression, active alcohol abuse, active drug abuse, hepatitis C and other chronic comorbid ities who presented to [facility] ER unresponsive with generalized tonic-clonic seizures admitte d to the ICU for status epilepticus. In the ICU, the patient had continuous EEG which demonstrated status epilepticus. Neurolog y was consulted. The patient had hemodynamic derangement with continued hypotension requiri ng vasopressor support. Presumed etiology of status epilepticus secondary to alcohol and dr ug intoxication/withdrawal. The patient was started on fosphenytoin and Keppra requiring op timization. The patient continued to demonstrate medical stability and had vasopressors dis continued and was transferred to regular medical floor for continued management. On the regular medical floor, the patient demonstrated hypotension requiring dopamine forrest tance (started 06/26) and discontinued on 06/27 evening. SUBJECTIVE No acute overnight events. Patient is alert and oriented x3. No family at bedside. Patient demonstrates depressed demeanor, but expresses remorse in wanting to improve her act ions. The patient denies any angina, shortness of breath or palpitations. ROS As per subjective OBJECTIVE Vital Signs: BP 101/71 | Pulse 83 | Temp 36.7 C (98.1 F) (Oral) | Resp 19 | Ht 1.626 m (5' 4") | Wt 53.2 kg (117 lb 4.6 oz) | SpO2 92% | BMI 20.13 kg/m Physical Exam General: Alert and oriented x3 Neck: No JVD Cardiovascular system: Regular rate and rhythm. Pulmonary: Effort normal Skin: Warm DATA BMP 139 107 11 77 3.1* 26 0.5 CaMgPhos 8.0* 1.8 2.8 LFT 52* 68 20 2.9* CBC 5.18 12.6 198 37.0 Coag Last labs from current encounter as of 06/28/19-14:54 Recent Labs 06/26/19 0423 PROCALCITONI 0.15 Imaging: -Imaging reviewed and will be addressed as indicated in the assessment and plan. PROBLEM LIST Principal Problem: Status epilepticus Active Problems: Smoker History of alcohol abuse Major depressive disorder Chronic hepatitis C without hepatic coma History of posttraumatic stress disorder (PTSD) Post-ictal state Methamphetamine intoxication MDMA abuse Resolved Problems: Generalized tonic-clonic seizure IMPRESSION/PLAN: 1. Status epilepticus: -Most likely secondary to drug/alcohol intoxication/withdrawal. -Hemodynamically stable. -Laboratory results reviewed. 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 -Neurochecks every shift. -Fall precautions. Hypotension: -Resolving. -Most likely distributive -Will decrease hydrocortisone from 50 mg IV every 8 hours to 50 mg twice daily and will tit rate to daily in the next 24 hours. -We will continue to monitor hemodynamics. Tobacco abuse she is counseled on cessation History of alcohol abuse she is counseled on cessation Major depressive disorder denied being suicidal will need close follow up with PCP chronic hepatitis C without hepatic coma follow up with GI/ID as an outpatient DVT/GI px Freddy Gastelum MD 14:54 06/28/2019 Lissy Che RN - 06/28/2019 12:11 AM PDTPt stable during shift. AOx3. Disoriented to time. BP is greatly aff ected by position of pt. Dopamine drip remains off and MAP is > 65. VSS. Electrolyte protoco l. CIWA (-), denies pain and no seizure activity. Seizure precautions maintained. K 3.6 with morning labs. Replacement given and redraw ordered. Voided QS up to the bathroom with gait belt and standby assist. Chart check complete. Lissy Madrigal RN aren Baird RN - 06/27/2019 5:59 PM PDTPatient stable throughout shift. Has been weaned off the dopamine gtt, electrolytes have been replaced. Patient still feels "out of it", and is alert and or iented x 3. Pt denies use of drugs except for THC and stated that she does not drink every day. CIWA positive, responded well to 2mg Ativan. End of shift chart check review Beto Bermeo MD - 06/27/2019 9:31 AM PDT [facility] Service:hospitalist Progress Note Hospital Day: LOS: 5 days SUBJECTIVE Patient Summary: refer to H&P and consult note for details Per ICU 53 y.o.femalewith significant past medical history of PTSD, depression, alcohol abuse, at least one seizure (is listed as the reaction to aspirin in her allergies), hepatitis C vi ral infection and drug abusewho presents withstatus epilepticus. The [facility] EMS were rafi led and patient was found unresponsive and then had a generalized tonic-clonic seizure. Per report there were multiple people on site but no good history was obtainable. She had 3 more seizures en route to the ED, each lasting approximately 30 seconds. She received a total of 8 mg of Valium. In the ED she had two more seizures and was given 4 mg Ativan and then load ed with 2 gm Keppra. She was intubated in the ED for airway protection. Admitted to ICU for further monitoring. ICU Timeline: 06/23: admitted to ICU; continuous EEG showing status epilepticus. Worsening hypotensi on not significantly responsive to neosynephrine. Started on Levophed and CVC placed. Re hernesto on MV" . Events Overnight: Patient seen and examined, denies CP or SOB no abdominal pain and n o dizziness,being weaned off dopamine as BP tolerates, she seems anxious at times, Address ed all questions ,low k and mag Scheduled Medications enoxaparin 40 mg Subcutaneous Daily folic acid 1 mg Oral Daily fosphenytoin 100 mg PE Intravenous Q8H hydrocortisone 50 mg Intravenous Q8H midodrine 10 mg Oral TID Early pantoprazole 40 mg Oral QAM AC thiamine 100 mg Oral Daily Continuous Infusions DOPamine 2.5 mcg/kg/min (06/27/19 1109) sodium chloride 0.9% 50 mL/hr at 06/27/19 0030 PRN Medications acetaminophen, albuterol-ipratropium, LORazepam, LORazepam, Magnesium replacement - NON ICU AND Magnesium AND magnesium oxide AND magnesium sulfate AND magnesium sulfa te, Potassium replacement - NON ICU AND Potassium AND potassium chloride AND pot assium chloride AND potassium chloride IVPB (other volumes & diluents) AND potassium chloride IVPB (other volumes & diluents), sodium chloride 0.9%, sodium chloride 0.9%, sodiu m chloride 0.9%, sodium chloride 0.9%, sodium chloride 0.9% OBJECTIVE Vital Signs: BP (!) 82/52 | Pulse 67 | Temp 37 C (98.6 F) (Oral) | Resp 19 | Ht 1.626 m (5' 4") | Wt 52.7 kg (116 lb 2.9 oz) | SpO2 100% | BMI 19.94 kg/m Intake/Output Summary (Last 24 hours) at 06/27/2019 1553 Last data filed at 06/27/2019 1152 Gross per 24 hour Intake 3066.6 ml Output 2900 ml Net 166.6 ml General appearance: alert, appears stated age, cooperative and no distress Head: Normocephalic, without obvious abnormality, atraumatic Neck: no adenopathy, no carotid bruit, no JVD, supple, symmetrical, trachea midline and thy roid not enlarged, symmetric, no tenderness/mass/nodules Lungs: clear to auscultation bilaterally Heart: regular rate and rhythm, S1, S2 normal, no murmur, click, rub or gallop Abdomen: soft, non-tender; bowel sounds normal; no masses, no organomegaly Extremities: extremities normal, atraumatic, no cyanosis or edema Pulses: 2+ and symmetric Neurologic: Grossly normal AXO3 DATA BMP 138 104 7* 91 3.3* 23 0.5 CaMgPhos 8.6 1.6* 3.3 LFT 52* 68 20 2.9* CBC 5.76 13.8 207 40.4 Coag Last labs from current encounter as of 06/27/19-15:53 No results for input(s): TROPONIN, BNP in the last 72 hours. Recent Labs 06/26/19422 PROCALCITONI 0.15 Recent Labs 06/27/1942806/26/19402 WBC 5.76 7.36 HGB 13.8 12.3 HCT 40.4 35.5 PLT 207 161 Recent Labs 06/27/1942806/26/19402 NA 138 139 K 3.3* 3.5 CL 104 109 CO2 23 21* BUN 7* 9 CREA 0.5 0.5 CALCIUM 8.6 8.1* MG 1.6* 1.7 PHOS 3.3 2.7 Recent Labs Lab 06/27/19 0429 MG 1.6* Microbiology Results (72 hrs) No results found for the last 72 hours. Recent Results (from the past 360 hour(s)) XR Chest AP Portable Narrative CHEST PORTABLE ONE VIEW CLINICAL INFORMATION: Endotracheal tube and orogastric tube placement. COMPARISON: Earlier examination of this same date. Impression 1. The tip of the endotracheal tube is 2.3 cm above the óscar. There is an NG tube which extends into the stomach. 2. There is patchy opacity in the left lung base suggesting atelectasis. Right lung clear. 3. Cardiomediastinal contours are stable. 4. No pneumothorax. Signed by: Daija Curiel Paula Sign Date/Time: 06/23/2019 12:23 AM XR Chest AP Portable Narrative CHEST PORTABLE ONE VIEW CLINICAL INFORMATION: New central line. COMPARISON: XR CHEST AP PORTABLE (06/22/2019); FINDINGS: A left-sided central line is been placed. The tip of the catheter is 6 cm below the óscar at the cavoatrial junction. No pneumothorax is noted. The endotracheal tube tip is 3.9 cm above the óscar. Nasogastric tube is seen coursing through the mediastinum below the acquired [id number] into the upper abdomen. Overlying EKG leads and oxygen tubing are noted. The heart is normal in size. The vascular pattern appears relatively normal. There is mild atelectasis at the right lung base near the hemidiaphragm. The osseous structures are intact. Impression Left-sided central line, endotracheal tube and nasogastric tube are in satisfactory position. No evidence of left-sided pneumothorax. Mild atelectasis at the right lung base. Signed by: Mumtaz Barbour Edward Sign Date/Time: 06/23/2019 6:[address] Head wo Contrast Narrative CT HEAD WITHOUT CONTRAST CLINICAL INFORMATION: 53-year-old with nontraumatic seizure. COMPARISON: CT head 06/22/2019. PROCEDURE: Axial images were obtained through the head without IV contrast. Multiplanar reformations were obtained from the acquisition data. At least one of the following CT dose optimization techniques were used: Automated exposure control; Adjustment of mA and/or kV according to patient size; Use of iterative reconstruction technique. FINDINGS: Brain: No intracranial hemorrhage is present. [...] soft tissues: Stable. Orbits: Left cataract surgery. Impression 1. No acute intracranial findings. 2. Severe left maxillary sinus opacification. Signed by: Daija John Steven Sign Date/Time: 06/25/2019 3:33 PM XR Chest AP Portable Narrative CHEST PORTABLE ONE VIEW CLINICAL INFORMATION: Diffuse wheezing. COMPARISON: XR CHEST AP PORTABLE (06/23/2019); XR CHEST AP PORTABLE (06/22/2019); X CHEST (06/22/2019); FINDINGS/IMPRESSION: 1. EKG leads. 2. No opacities or effusions. 3. Cardiomediastinal contours are stable. 4. No pneumothorax. 5. 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 Signed by: Daija Rodas Gregory Sign Date/Time: 06/26/2019 8:59 AM Results for orders placed or performed during the hospital encounter of 06/22/19 ECG 12 lead Result Value Ref Range INTERPRETATION TEXT Normal sinus rhythm Right bundle branch block Left anterior fascicular block Bifascicular block Prolonged Q-T interval Abnormal ECG When compared with ECG of 08-MAY-2009 05:24, (RBBB and left anterior fascicular block) is now Present Confirmed by Max Baxter MD ([id number]) on 06/26/2019 7:14:20 PM I have reviewed the above labs and radiology reports. PROBLEM LIST Principal Problem: Status epilepticus Active Problems: Smoker History of alcohol abuse Major depressive disorder Chronic hepatitis C without hepatic coma History of posttraumatic stress disorder (PTSD) Post-ictal state Methamphetamine intoxication MDMA abuse I attest that this clinical assessment using ASPEN criteria 1 is accurate for this patient and supports that as a medical diagnosis. A specific nutrition treatment plan will be imple mented as outlined in the registered dietitian's plan of care. ASSESSMENT & PLAN Status epilepticus likely alcohol intoxication/withdrawal also positive for meth per repor t recently she came to the hospital at [facility]. CT scan was done over there that was ne gatflavio. Started on fosphenytoin and Keppra. Keppra has been discontinued. She will be on 300 mg of phenytoin extended release on discharge. Neurology has been following. Check leve l in AM Hypotension could be volume related she does not look septic but will check blood cx X2 Sh adore is on dopamine gtt since 06/26. She is also on midodrine. noted ICU note on She is currently stable on step-down unit on dopamine infusion. Please call the intensi vist team if she has worsening BP or new concerning symptoms. Continue to try to wean off of dopamine as tolerates for goal SBP>90 also noted stress dose steroids ordered per ICU Tobacco abuse she is counseled on cessation History of alcohol abuse she is counseled on cessation Major depressive disorder denied being suicidal will need close follow up with PCP chronic hepatitis C without hepatic coma follow up with GI/ID as an outpatient History of posttraumatic stress disorder Methamphetamine intoxication With MDMA abuse counseled on cessation Low k and mag replete via electrolyte protocol DVT/GI px High risk to go back to ICU PT/OT eval and tx and CW for discharge planning Review of H/P, imaging and labs, formulation of assessment and plan, discussion with the pa tient/family, staff, and providers. Portions of this chart may have been copied from previous notes for continuity of care purp oses. Disposition: Admitted Code Status: Full Code Beto Kothari MD 06/27/2019 Lissy Che RN - 06/27/2019 5:30 AM PDTPt oriented x4 by end of shift. Pt voids in bedside commode QS. No complaints of pain during shift. Dopamine infusion continued at 5mcg/min to maintain MAP > 65. BP is affected greatly by postion of pt. This RN consistently had to reposition cuff and pt to get accurate BP reading. All other VSS. Chart check complete. Lissy Madrigal RN Cindy Tay RN - 06/26/2019 9:23 PM PDT 06/26/19 2115 Vitals Pulse 107 Resp (!) 31 BP 93/66 MAP 75 mmHg MEWS Total Score (!) 5 Spoke with RN. This patient has had BP issues for the last few days. There are no changes i n status and nurse doesn't have concerns at this time. Will continue to watch patientElectro nically signed by Cindy Massey RN at 06/26/2019 9:24 PM Deepak Gabriel MD - 06/26/20 10:09 AM PDT Service: Hospitalist Progress Note Pt: Steffi Bishop AGE/SEX: 53 y.o. female ROOM: [facility]/9115- : 1965 PCP: RAFFI Ji ADMIT DATE: 06/22/2019 TODAY'S DATE: 06/26/2019 Hospital Day/Hospital Course: LOS: 4 days Per ICU 53 y.o.femalewith significant past medical history of PTSD, depression, alcohol abuse, at least one seizure (is listed as the reaction to aspirin in her allergies), hepatitis C vi ral infection and drug abusewho presents withstatus epilepticus. The [facility] EMS were rafi led and patient was found unresponsive and then had a generalized tonic-clonic seizure. Per report there were multiple people on site but no good history was obtainable. She had 3 more seizures en route to the ED, each lasting approximately 30 seconds. She received a total of 8 mg of Valium. In the ED she had two more seizures and was given 4 mg Ativan and then load ed with 2 gm Keppra. She was intubated in the ED for airway protection. Admitted to ICU for further monitoring. ICU Timeline: 06/23: admitted to ICU; continuous EEG showing status epilepticus. Worsening hypotensio n not significantly responsive to neosynephrine. Started on Levophed and CVC placed. Remai ns on MV. SUBJECTIVE: Patient seen and examine. She is awake and alert and talking to me. She says she want to go home. Her mentation is okay. No chest pain, SOB, DO. No cough on recumbency. Had no ort hopnea or PND. No Abdominal pain, N/V or fever. Still feeling tired and fatigued. No dizzine ss or lightheadedness. Scheduled Medications: enoxaparin 40 mg Subcutaneous Daily folic acid 1 mg Oral Daily fosphenytoin 100 mg PE Intravenous Q8H insulin lispro 0-6 Units Subcutaneous 4x Daily WC and HS midodrine 10 mg Oral TID Early thiamine 100 mg Oral Daily Continuous Infusions dextrose 10% DOPamine 10 mcg/kg/min (06/26/19 0037) sodium chloride 0.9% 100 mL/hr at 06/26/19 0923 PRN Medications acetaminophen, albuterol-ipratropium, Hypoglycemia Management AND POCT Glucose AND dextrose AND dextrose 10%, LORazepam, LORazepam, Magnesium replacement - ICU AND mag nesium sulfate AND magnesium sulfate, Potassium replacement - ICU AND potassium chlo ride AND potassium chloride AND potassium chloride IVPB (other volumes & diluents) * *AND potassium chloride IVPB (other volumes & diluents) AND potassium chloride IVPB (o ther volumes & diluents), Potassium replacement - ICU AND potassium chloride, sodium chl oride 0.9%, sodium chloride 0.9%, sodium chloride 0.9%, sodium chloride 0.9%, sodium chlorid e 0.9%, Phosphate Replacement - ICU AND sodium phosphate IVPB AND sodium phosphate I VPB Allergy: Allergies Allergen Reactions Aspirin Other (See Comments) seizure OBJECTIVE: Vitals: Patient Vitals for the past 24 hrs: BP Temp Temp src Pulse Resp SpO2 Weight 06/26/19 0819 36.9 C (98.4 F) Oral 100 % 06/26/19 0755 (!) 82/52 96 28 06/26/19 0725 93/59 84 (!) 0 06/26/19 0720 89 22 06/26/19 0715 87 22 06/26/19 0710 88 21 06/26/19 0705 89 21 06/26/19 0700 91 22 06/26/19 0500 93/61 90 21 06/26/19 0300 99/62 36.9 C (98.5 F) 103 21 94 % 52.8 kg (116 lb 6.5 oz) 06/26/19 0245 102/56 100 22 06/26/19 0240 (!) 88/56 98 23 06/26/19 0235 91/55 99 23 06/26/19 0230 92/56 102 23 06/26/19 0225 91/54 102 23 06/26/19 0220 94/58 103 21 06/26/19 0215 91/56 101 21 06/26/19 0210 92/57 101 23 06/26/19 0205 94/53 91 24 06/26/19 0200 (!) 87/54 95 23 06/26/19 0155 (!) 82/51 80 25 06/26/19 0150 93/64 99 26 06/26/19 0145 (!) 84/53 113 21 06/26/19 0140 95/62 106 23 06/26/19 0130 97/62 107 24 06/26/19 0120 93/63 106 23 06/26/19 0105 96/64 106 29 06/26/19 0100 96/64 108 28 06/26/19 0055 107/61 120 30 06/26/19 0050 94/58 103 20 06/26/19 0045 (!) 88/53 95 20 06/26/19 0040 (!) 88/53 94 24 06/26/19 0035 (!) 88/51 94 15 06/26/19 0030 (!) 76/50 90 14 06/26/19 0025 (!) 75/49 99 30 06/26/19 0020 90/58 105 (!) 35 06/26/19 0015 95/61 97 22 06/26/19 0010 96/64 99 23 06/26/19 0005 94/62 93 21 06/26/19 0000 94/62 110 30 06/25/19 2355 97/65 94 21 06/25/19 2350 98/67 94 22 06/25/19 2345 91/60 92 19 06/25/19 2340 (!) 76/51 93 23 100 % 06/25/19 2335 (!) 84/58 37.1 C (98.7 F) Oral 95 27 100 % 06/25/19 2320 (!) 84/58 92 21 10/20/19 2310 (!) 80/54 94 24 06/25/192304 (!) 80/56 93 23 06/25/192299 (!) 86/55 89 22 06/25/192199 (!) 64/41 88 25 06/25/192154 (!) 77/50 89 26 06/25/192149 (!) 76/51 85 24 06/25/192144 (!) 63/42 91 25 06/25/192139 (!) 82/63 97 (!) 33 06/25/192134 (!) 81/56 89 25 06/25/192129 (!) 78/53 86 26 06/25/192124 (!) 81/58 93 25 06/25/192119 (!) 79/55 81 21 06/25/192114 (!) 80/53 80 23 06/25/192109 (!) 69/48 90 25 06/25/192104 (!) 78/53 90 23 06/25/192099 (!) 75/51 86 23 06/25/192044 (!) 79/50 88 25 06/25/192039 (!) 84/59 86 21 06/25/192029 (!) 89/57 82 21 06/25/192019 (!) 84/59 85 22 06/25/192009 (!) 80/55 79 22 06/25/191999 (!) 82/57 89 22 06/25/19 1950 (!) 83/55 88 23 06/25/19 194 (!) 87/53 36.8 C (98.2 F) Oral 87 23 100 % 06/25/19 1930 (!) 88/57 95 24 06/25/19 1800 (!) 85/59 95 20 06/25/19 173 (!) 89/62 95 24 06/25/19 170 (!) 80/55 06/25/19 170 (!) 78/54 36.7 C (98.1 F) Oral 99 20 100 % 06/25/19 1430 100/69 90 100 % 06/25/19 1415 99/69 88 100 % 06/25/19 1400 98/69 94 100 % 06/25/19 1345 83 21 97 % 06/25/19 1330 100/73 99 06/25/19 1315 (!) 88/56 94 100 % 06/25/19 1300 (!) 82/53 91 96 % 06/25/19 1245 94/57 96 100 % 06/25/19 1230 101/69 105 99 % 06/25/19 1215 98/62 100 (!) 87 % 06/25/19 1200 105/70 37.7 C (99.9 F) 101 20 06/25/19 1145 94/67 101 27 98 % 06/25/19 1130 101/72 103 (!) 31 99 % 06/25/19 1115 (!) 87/53 99 (!) 32 99 % 06/25/19 1100 91/62 97 24 94 % 06/25/19 1045 93/62 96 24 94 % 06/25/19 1030 (!) 85/62 37.6 C (99.7 F) 101 (!) 36 99 % 06/25/19 1015 37.7 C (99.9 F) 104 (!) 36 (!) 85 % I&O Detailed Table: Intake/Output Summary (Last 24 hours) at 06/26/2019 1009 Last data filed at 06/26/2019 0700 Gross per 24 hour Intake 4295.2 ml Output 4850 ml Net -554.8 ml Patient Vitals for the past 96 hrs: Weight 06/26/19 0300 52.8 kg (116 lb 6.5 oz) 06/25/19 0543 52.4 kg (115 lb 8.3 oz) 06/24/19 0400 55.2 kg (121 lb 11.1 oz) 06/22/19 2335 54.2 kg (119 lb 7.8 oz) Hemodynamics Last 24hrs: Physical Examination: Constitutional: She is awake and alert and talking to me. HEENT: Neck supple, no JVD, non icteric sclera. Cardiovascular: Normal rate, S1 and S2 Pulmonary/Chest: Clear bilateral Abdominal: Soft. Nontender Extremeties/Musculoskeletal: Normal range of motion.exhibits no tenderness. exhibits no ed danish. Neurological: Alert and oriented to person, place, and time. In all 4 extremities Skin: Skin is warm and dry. No rash noted. No erythema. No pallor. Psychiatric: Has a normal mood and affect. Behavior is normal. Judgment normal. Not suicida l LABS: Recent Labs Lab 06/26/1940206/25/1930906/24/19 0504 WBC 7.36 9.12 9.90 HGB 12.3 13.1 13.5 HCT 35.5 38.8 39.5 PLT 161 194 221 MONOPCT 4.52 8.42 7.57 Recent Labs Lab 06/26/19 0403 06/25/19 1126 06/25/1930906/24/19 0504 06/23/19 1319 NA 139 -- 141 -- 144 -- -- K 3.5 4.1 3.6 < > 3.7 < > -- CL 109 -- 105 -- 112* -- -- CO2 21* -- 29 -- 26 -- -- BUN 9 -- <5* -- 6* -- -- CALCIUM 8.1* -- 8.2* -- 8.1* -- -- ALKPHOS -- -- -- -- -- -- 68 ALT -- -- -- -- -- -- 20 AST -- -- -- -- -- -- 52* < > = values in this interval not displayed. Phosphorus: Lab Results Component Value Date PHOS 2.7 06/26/2019 Recent Labs Lab 06/26/1940206/25/1930906/24/19 2019 MG 1.7 2.1 1.7 Recent Labs Lab 06/23/19 0422 PHART 7.313* PO2ART 120* DOV0UNE 46* [id number] 98 Diagnostic Imaging: Impressions only: Recent Results (from the past 360 hour(s)) XR Chest AP Portable Impression 1. The tip of the endotracheal tube is 2.3 cm above the óscar. There is an NG tube which extends into the stomach. 2. There is patchy opacity in the left lung base suggesting atelectasis. Right lung clear. 3. Cardiomediastinal contours are stable. 4. No pneumothorax. Signed by: Daija Curiel Paula Sign Date/Time: 06/23/2019 12:23 AM XR Chest AP Portable Impression Left-sided central line, endotracheal tube and nasogastric tube are in satisfactory position. No evidence of left-sided pneumothorax. Mild atelectasis at the right lung base. Signed by: Mumtaz Barbour Edward Sign Date/Time: 06/23/2019 6:[address] Head wo Contrast Impression 1. No acute intracranial findings. 2. Severe left maxillary sinus opacification. Signed by: Daija John Steven Sign Date/Time: 06/25/2019 3:33 PM PROBLEM LIST Principal Problem (Resolved): Status epilepticus Active Problems: Smoker History of alcohol abuse Major depressive disorder Chronic hepatitis C without hepatic coma History of posttraumatic stress disorder (PTSD) Post-ictal state Methamphetamine intoxication MDMA abuse Resolved Problems: Generalized tonic-clonic seizure ASSESSMENT & PLAN 53 y.o.femalewith significant past medical history of PTSD, depression, alcohol abuse, at least one seizure (is listed as the reaction to aspirin in her allergies), hepatitis C vi ral infection and drug abusewho presents withstatus epilepticus. Principal Problem (Resolved): Status epilepticus She was admitted with status epilepticus likely alcohol intoxication/withdrawal. He is po sitive for meth and MDMA.. Continuous EEG was done. Seizures appear to be controlled. Rec ently she came to the hospital at [facility]. CT scan was done over there that was negativ e. Started on fosphenytoin and Keppra. Keppra has been discontinued. She will be on 300 m g of phenytoin extended release on discharge. In the hospital we will continue with 100 mg 3 times daily of any time. Neurology has been following. She is extubated successfully. S he had a fever. Hypotension: I doubt patient is septic. No need for antibiotics. She is on dopamine. She is also on midodrine. Discussed with ICU. She is already maxed out with dopamine. My expertise and e xperience does not allow me to manage dopamine 10 mics. Patient will benefit from the ICU m onitoring if it is more than 5 mics of dopamine Smoker Counseled about smoking. History of alcohol abuse I counseled her regarding alcoholism as well. Major depressive disorder Continue with current treatment plan chronic hepatitis C without hepatic coma She has a history of chronic hepatitis. She was diagnosed with hepatitis C. History of posttraumatic stress disorder (PTSD) Continue with current medications. Post-ictal state She is feeling better now. Methamphetamine intoxication With MDMA abuse. More likely that would be the cause of her status epilepticus. Resolved Problems: Generalized tonic-clonic seizure Deepak Stanton MD, FACP 06/26/2019 10:09 Portions of this chart may have been copied from previous notes for continuity of care purp ose Portions of this chart may have been created with [employer] voice recognition software. Occasi onal wrong-word or sound-alike substitutions may have occurred due to the inherent hernadez itations of voice recognition software. Please read the chart carefully and recognize, using context, where these substitutions have occurred. Anisha Saleh PT - 10:00 AM PDTMISSED THERAPY VISIT Physical Therapy attempted to see the following patient today: Steffi Bishop Missed Visit (treatment on hold) Chart reviewed, spoke to RN. Pt with symptomatic hypotension worse with activity despite f luid boluses and albumin adminstration. ICU is following. Will hold PT at this time 2/2 me dical status. Electronically Signed by: ANISHA THOMAS PT, DPT 06/26/2019 10:03 Zarina Barron RN - 11:15 PM PDTSepsis nurse notified, ICU Dr down to evaluate. Cheetah Showed slight fluid respondsive, new orders received. ICU at bed side. Dopamine started. ICU notifed, next fluid bolus started.Electronically signed by Zarina Kennedy RN at 019 5:04 AM Lissy Che RN - 06/25/2019 7:45 PM PDTPt 70-80s SBP. Dr notified that pt asymptomatic but borderline low. New orders for 500cc blous if MAP < 60. Contact Dr if bolus ineffective or below 60 MAP aft erwards. Mehreen Hayward RN - 06/25/2019 6:54 PM [id number]: pt arrived on unit. MAP 61; 500ml NS bolus given; MAP currently 64. Patient passed swallow eval. Patient has be en sleepy, no seizures. End of shift chart check done. Anastasia Livingston MD - 06/25/2019 10:26 AM PDTFormatting of this note might be dif ferent from the original. [facility] Service: Neurology PROGRESS NOTE Subjective: Patient seen and examined. Steffi Bishop is a 53 y.o. female admitted to the hospital for altered mental status and stat us epilepticus. Patient Summary: please refer to H&P and My consult. Current complaints: Endorses mild headache and not feeling well this morning. She is more alert and oriented today. Status post extubation yesterday morning. Denies any new focal ne urological deficits. On asking denies IV drug use though endorses alcohol, marijuana and me th (smoking) abuse. Patient is hypotensive and requiring pressor support in addition to tach ycardia. Objective: Vitals: Temp: [36.1 C (97 F)-37.9 C (100.2 F)] 36.1 C (97 F) Pulse: [79-105] 90 Resp: [10-37] 26 BP: (75-131)/(51-92) 86/56 Mental statues: Alert, oriented to place, person but not to date, situation Speech: Is normal; fluent and spontaneous. Cognition: The patient is oriented to person, place Cranial Nerves: At this time, the pupils are equal, round, and reactive to light. Visual fi elds are full to finger confrontation. Extraocular movements are intact. The face is symmetr ic. Hearing is symmetric bilaterally to fingers rubbing. The palate elevates in the midline. Voice is normal. The tongue has normal motion. Coordination: Normal finger to nose. Gait: Not attempted as patient deferred Tone: Normal muscle tone. Strength: Strength is 5/5 in the upper and lower limbs. Light Touch: Normal light touch sensation in upper and lower extremities. DTR's: Deep tendon reflexes in the upper and lower extremities are normal bilaterally and t race ROS: All other systems are reviewed and negative CURRENT MEDICATIONS: Scheduled Meds: enoxaparin 40 mg Subcutaneous Daily folic acid 1 mg Oral Daily fosphenytoin 100 mg PE Intravenous Q8H insulin lispro 0-6 Units Subcutaneous 4x Daily WC and HS levETIRAcetam 500 mg Intravenous 2 times per day thiamine 100 mg Oral Daily Labs Lab Results Component Value Date WBC 9.12 06/25/2019 HGB 13.1 06/25/2019 HCT 38.8 06/25/2019 MCV 91.1 06/25/2019 PLT 194 06/25/2019 Lab Results Component Value Date BUN <5 (L) 06/25/2019 NA 141 06/25/2019 K 3.6 06/25/2019 CL 105 06/25/2019 CO2 29 06/25/2019 Images- none new pertaining to neurology, please see earlier notes for previous work up Assessment: This patientis a 53-year-old woman with history of PTSD, depression, alcohol abuse, hepat itis C, drug abuseadmitted to the hospital withgeneralized tonic-clonic seizures and sta tus epilepticus. Patient's Utox was positive for MDMA and methamphetamine with negative bl ood alcohol level. Stat EEG on admission showed electrographic status epilepticus with no fu rther clinical seizures after Keppra IV load in ED. She was then started on propofol gtt and loaded with phenytoin IV. Started on maintenance phenytoin 100 mg Q8H and Keppra 500 mg bid . The cEEG showed less frequent sharp waves in right frontal F4/F8 and F3 discharges and r ight frontal slowing. No clinical seizures in last 24-48 hours. Her exam today is non-foca l Impression- 1-Generalized tonic-clonic seizures with status epilepticus 2-Electrographic status epilepticus 3-Substance abuse with methamphetamine and MDMA 4- Altered mental status, improving 5- History of alcohol abuse, possible alcohol withdrawal Plan: - Patient mental status improving with non-focal exam, may expect to take few more days to recover to baseline given multifactorial etiology of altered mental status with postictal st ate, substance abuse, alcohol withdrawal and sedatives (recently discontinued) - Could discontinue Keppra and continue phenytoin 300 mg ER PO alone - Given high risk of patient relapse for alcohol and substance abuse and hence risk of recu rrent seizures, would recommend continuing phenytoin 300 mg ER daily PO on discharge. This is once a day drug and hence better patient compliance expected. - Would still recommend MRI brain without contrast or at least CT head to look for any stru ctural abnormalities to explain focal epileptiform discharges as well as focal slowing on EE G though there are enough alternative reasons for seizure explanation. Finding a structural abnormality may help us guide if anti-epileptics are necessary for residential - I discussed at length with patient today about importance of discontinuing substance abus e and alcohol given recent very severe seizures - Please have [patient follow up with neurology clinic in 6-8 weeks. - General care per primary team. Thank you for allowing us to participate in your patient care. Please call us with gonzalo cutler. I will be signing off on patient as today is last day of my call. Please reach out to neurologist partition making machine operator starting tomorrow for any additional concerns. If brain imaging is obta ined, please reach out to me to discuss results if needed. Mana Berger ARN P - 06/25/2019 7:32 AM PDT [facility] Service: Actionscript Developer Progress Note Steffi Bishop 53 y.o. Hospital Day: LOS: 3 days Post-Op Day: * No surgery found * Consulting Physicians Treatment Team: Anastasia Argueta MD SUBJECTIVE Patient Summary: From Dr. Chapa' H & P on 06/23/19: "The patient is a 53 y.o. female with significant past medical history of PTSD, depression , alcohol abuse, at least one seizure (is listed as the reaction to aspirin in her allergies ), hepatitis C viral infection and drug abuse who presents with status epilepticus. The [facility] EMS were called and patient was found unresponsive and then had a generalized tonic-cloni c seizure. Per report there were multiple people on site but no good history was obtainable. She had 3 more seizures en route to the ED, each lasting approximately 30 seconds. She rece ived a total of 8 mg of Valium. In the ED she had two more seizures and was given 4 mg Ativa n and then loaded with 2 gm Keppra. She was intubated in the ED for airway protection. Admi tted to ICU for further monitoring." ICU Timeline: 06/23: admitted to ICU; continuous EEG showing status epilepticus. Worsening hypotensio n not significantly responsive to neosynephrine. Started on Levophed and CVC placed. Remai ns on MV. 06/24: Remained on MV overnight. Levophed requirements ranging from 7 - 9 mcg/min. Events Overnight: Extubated. Remains on norepinephrine. Auto-diuresing with 3.5 Liter s out overnight. T. Max 37.8 SCHEDULED MEDICATIONS Reviewed. OBJECTIVE VITAL SIGNS Temp: [36.5 C (97.7 F)-37.9 C (100.2 F)] 37.8 C (100 F) Pulse: [74-105] 92 Resp: [-] 26 BP: (69-131)/(50-92) 101/75 Intake/Output Summary (Last 24 hours) at 06/25/2019 0732 Last data filed at 06/25/2019 0656 Gross per 24 hour Intake 2796.48 ml Output 4770 ml Net -1973.52 ml EXAM GEN: Sitting up in chair in NAD; talking with family. Follows commands appropriately. Thin NEURO: PERRL, no facial asymmetry, moves extremities well HEENT: sclerae clear, nonicteric, oral mmm, pink NECK: supple, trachea midline CV: RRR, no murmur, rub or gallop, peripheral pulses palpable, cap refill < 3 seconds LUNGS: clear b/l, no wheezing, rales or rhonchi, symmetric chest expansion, even/ unlabored respirations on room air. ABD: soft, nondistended, nontender to palpation EXTR: no edema, clubbing or cyanosis SKIN: warm, dry, no rash or mottling LINES/TUBES: PIV, L IJ CVC (06/23) Diagnostic Studies: Available labs and images have been reviewed and will be addressed as indicated in the assessment and plan. PROBLEM LIST Principal Problem: Status epilepticus Active Problems: Smoker H/O ETOH abuse Major depressive disorder Hep C w/o coma, chronic History of posttraumatic stress disorder (PTSD) Generalized tonic-clonic seizure Post-ictal state Methamphetamine intoxication MDMA abuse Resolved Problems: * No resolved hospital problems. * ASSESSMENT & PLAN NEURO: Status epilepticus: possible ETOH withdrawal vs drug use (UDS positive for meth and MDMA ). Resolved. ? Head CT at [facility] was negative. ? Neurology (Dr. Argueta) is following. CT imaging obtained per Neurology recommendations. ? AED management per Neurology. Discontinued keppra per Neurology recommendations. Will nee d phenytoin 300 mg ER daily on discharge. Alcohol abuse: unknown when she last drank, but family reports heavy daily drinking. ? CIWA protocol with prn Ativan. ? Thiamine, folic acid supplementation daily. Polysubstance abuse: relationship counselor on cessation. CV: Hypotension, requiring Levophed to keep MAP > 65. Unclear etiology. Do not suspect sep sis. Possibly due to combination of sedation and antiepileptic medications. Resolved. Off v asopressor support. On midodrine. PULM: Extubated and on room air. GI/NUTRITION: General diet. Old blood in mouth and small amount dark bloody fluid from OG tube. Likely from tongue b iting from seizures. RENAL/LYTES: No acute issues. Monitor BMP. ID: No clear evidence of infection. Blood cultures were drawn at [facility] prior to transfer: NGTD HEME: No acute issues. ENDO: No acute issues. MUSC/SKIN: PT/OT PROPHYLAXIS: Stress ulcer prophylaxis: N/A DVT prophylaxis: enoxaparin injection and SCD's VAP bundle: chlorhexidine oral care and HOB > 30 degrees Disposition: ICU plan of care as above. Transfer out of ICU later today Code Status: Full Code *Please bill 35 minutes of high complexity time spent evaluating the patient, reviewing the data and formulating a plan exclusive of all other procedures. HYUN Bailey 06/25/2019 Deana Rivas RN - 06/25/2019 3:16 AM PDTCheetah performed per order from Challenge type: 500ml NS bolus Hemodynamics as follows: Baseline assessment: SVI- 40 HR- 88 CI- 3.4 After challenge: SVI- 47 HR- 102 CI- 4.5 Percent change: 17.6% Pt IS fluid responsive. Actionscript Developer notified. Anastasia Livingston MD - 06/24/2019 9:30 AM PDTFormatting of this no te might be different from the original. [facility] Service: Neurology PROGRESS NOTE Subjective: Subjective: Patient seen and examined. Steffi Bishop is a 53 y.o. female with history of alcohol abuse, substance abuse admitted to the hospital for status epilepticus and altered mental status. Patient Summary: please refer to H&P and My consult. Current complaints: Patient continues to be intubated and on propofol gtt. Per nursing rep ort, patient was able to sit up and follow commands with all four extremities with sedation holiday last evening. She was slightly hypotensive yesterday and was started on norepinephr ine. No fever and labs not suggestive of infection. CEEG shows ongoing epileptiform discharges in right frontal region (F4/F8) and some on left frontal region (F3) though less often than before and no electrographic seizures in last 24 hours. Objective: Vitals: Temp: [37.4 C (99.3 F)-38 C (100.4 F)] 37.6 C (99.7 F) Pulse: [72-98] 83 Resp: [18-27] 18 BP: (65-102)/(49-75) 96/68 sedation paused for 15 minutes General: Intubated, restless with agitation, trying to reach for ETT with sedation turned o ff Mental status: opens eyes to name and looks around, altered but able to follow command some times and with bilateral lower legs (wiggles toes to command), restless and spontaneously mo ves all extremities. Antigravity strength in all four with attempt to pull ETT Cranial nerves: Constricted pupils, symmetric bilaterally 1 mm, reactive to light. Corneal s positive bilaterally and brisk. Face appears symmetric with ETT in place. Positive gag and cough Motor exam: Restless, spontaneous antigravity movements in bilateral lower extremities and bilateral upper extremities, trying to reach ETT and pull out with both arms Coordination: Could not be examined secondary to patient's mental status CURRENT MEDICATIONS: Scheduled Meds: chlorhexidine 15 mL Mouth/Throat BID enoxaparin 40 mg Subcutaneous Daily famotidine (PEPCID) IVPB 20 mg Intravenous 2 times per day folic acid with thiamine IVPB 1 mg Intravenous Daily fosphenytoin 100 mg PE Intravenous Q8H insulin lispro 0-6 Units Subcutaneous 4x Daily WC and HS levETIRAcetam 500 mg Intravenous 2 times per day potassium phosphate IVPB 30 mmol Intravenous Once Labs Lab Results Component Value Date WBC 9.90 06/24/2019 HGB 13.5 06/24/2019 HCT 39.5 06/24/2019 MCV 91.6 06/24/2019 PLT 221 06/24/2019 Lab Results Component Value Date BUN 6 (L) 06/24/2019 NA 144 06/24/2019 K 3.7 06/24/2019 CL 112 (H) 06/24/2019 CO2 26 06/24/2019 CEE/18- Dr. Celis Brief Findings: The EEG was reviewed through 8:15AM today. Thereremainsnoclear post erior dominant rhythm and there is subtle right frontotemporalbackground slowing.Backgro und is comprised of theta/beta frequencies. Noelectrographicseizureswere noted. Previo usly mentioned, sharply contoured waveforms phase reversing at F4/F8> F3 were less frequen t since the last progress note from yesterday afternoon. Assessment: This patient is a 53-year-old woman with history of PTSD, depression, alcohol abuse, hepati tis C, drug abuse admitted to the hospital with generalized tonic-clonic seizures and status epilepticus. Patient's Utox was positive for MDMA and methamphetamine with negative blood alcohol level. Stat EEG on admission showed electrographic status epilepticus with no furthe r clinical seizures after Keppra IV load in ED. She was then started on propofol gtt and joelle ded with phenytoin IV. Started on maintenance phenytoin 100 mg Q8H IV with therapeutic level this am. Differential diagnosis for etiology of status epilepticus includes substance abuse with met hamphetamine and MDMA, alcohol withdrawal, any other structural brain pathology which cannot be completely excluded at this time (given frontal predominant discharges on cEEG), less li delbert infection (no fever, no leucocytosis). Transient drop in BP requiring pressors last ni ght likely due to propofol. The cEEG showed less frequent sharp waves in right frontal F4/ F8 and F3 discharges and right frontal slowing. No clinical or electrographic seizures in l ast 24 hours. Improving exam with sedation wean and able to follow some commands, no obviou s focal deficits on exam with ability to move all four extremities this am. Does appear to be still altered, likely due to postictal state vs substance abuse vs sedatives on board. Impression- 1- Generalized tonic-clonic seizures with status epilepticus 2- Electrographic status epilepticus 3- Substance abuse with methamphetamine and MDMA 4- Altered mental status,coma 5- History of alcohol abuse, possible alcohol withdrawal Plan: - Recommend to discontinue cEEG as no seizures in last 24 hours with less frequent epilepti form discharges and improved exam - Recommend extubation given improved exam with ability to follow commands - Neurology will continue to follow and re-examine after extubation - Can hold off on MRI brain imaging given current non-focal exam. If needed can be done la ter if any concerns on thorough neurological exam after extubation - Continue phenytoin 100 mg Q8H, total level therapeutic this morning. Follow free level Thank you for allowing us to participate in your patient care. Please call us with [facility] he. Bryan Recinos MD - 06/24/2019 8:30 AM [facility] Service: Continuous EEG Monitoring Progress Note Brief Findings: The EEG was reviewed through 8:15AM today. There remains no clear posterio r dominant rhythm and there is subtle right frontotemporal background slowing. Background is comprised of theta/beta frequencies. No electrographic seizures were noted. Previously ment ioned, sharply contoured waveforms phase reversing at F4/F8 > F3 were less frequent since last progress note from yesterday afternoon. We will continue to monitor this patient's continuousEEG and leave progress notes with an y changes. A formal continuous EEG report will follow. Please do not hesitate to contact us with any questions or concerns. Bryan Celis MD [facility] Clinical Neurophysiologist Cary Arnold NP - 06/24/2019 7:08 AM PDTFormatting of this note might be different from the origin al. [facility] Service: Actionscript Developer Progress Note Steffi Bishop 53 y.o. Hospital Day: LOS: 2 days Post-Op Day: * No surgery found * Consulting Physicians Treatment Team: Anastasia Argueta MD SUBJECTIVE Patient Summary: From Dr. Chapa' H & P on 06/23/19: The patient is a 53 y.o. female with significant past medical history of PTSD, depression, alcohol abuse, at least one seizure (is listed as the reaction to aspirin in her allergies) , hepatitis C viral infection and drug abuse who presents with status epilepticus. [facility] and patient was found unresponsive and then had a generalized tonic-clonic seizure. Per report there were multiple people on site but no good history was obtainable. She had 3 more seizures en route to the ED, each lasting approximately 30 seconds. She recei sandra a total of 8 mg of Valium. In the ED she had two more seizures and was given 4 mg Ativan and then loaded with 2 gm Keppra. She was intubated in the ED for airway protection. Admitted to ICU for further monitoring. ICU Timeline: 06/23: admitted to ICU; continuous EEG showing status epilepticus. Worsening hypotensio n not significantly responsive to neosynephrine. Started on Levophed and CVC placed. Remai ns on MV. Events Overnight: Remains on MV overnight. Levophed requirements ranging from 7 - 9 mcg/min. SCHEDULED MEDICATIONS Reviewed. OBJECTIVE VITAL SIGNS Temp: [37.4 C (99.3 F)-38 C (100.4 F)] 37.7 C (99.9 F) Pulse: [72-98] 78 Resp: [18-27] 18 BP: (65-102)/(49-75) 102/75 Intake/Output Summary (Last 24 hours) at 06/24/2019 0708 Last data filed at 06/24/2019 0545 Gross per 24 hour Intake 3982 ml Output 1345 ml Net 2637 ml EXAM GEN: sedated, mechanically ventilated NEURO: PERRL, no facial asymmetry, moves extremities to painful stimulus GCS: 7T (E: 1, V: 1T, M: 5) HEENT: sclerae clear, nonicteric, oral mmm, pink NECK: supple, trachea midline CV: RRR, S1/S2, no murmur, rub or gallop, peripheral pulses palpable, cap refill brisk LUNGS: clear b/l, no wheezing, rales or rhonchi, symmetric chest expansion, even/ unlabored respirations on MV ABD: soft, nondistended, nontender to palpation, no masses, bowel tones active EXTR: no edema, clubbing or cyanosis SKIN: warm, dry, no rash or mottling; no e/o skin breakdown over the occiput, scapulae, elb ows, sacrum or heels LINES/TUBES: PIV, L IJ CVC (06/23), ETT/OGT (06/22), urethral catheter (06/22) Diagnostic Studies: Available labs and images have been reviewed and will be addressed as indicated in the assessment and plan. PROBLEM LIST Principal Problem: Status epilepticus Active Problems: Smoker H/O ETOH abuse Major depressive disorder Hep C w/o coma, chronic History of posttraumatic stress disorder (PTSD) Generalized tonic-clonic seizure Post-ictal state Methamphetamine intoxication MDMA abuse Resolved Problems: * No resolved hospital problems. * ASSESSMENT & PLAN NEURO: Status epilepticus: possible ETOH withdrawal vs drug use (UDS positive for meth and MDMA ). ? Head CT at [facility] was negative. ? Cont Keppra and fosphenytoin, with PRN Ativan. ? Continuous EEG has been running for last 24 hrs. Seizures appear to be controlled for no w. If no e/o seizures, will stop sedation and evaluate for extubation later today. ? Neurology (Dr. Argueta) is following. Will wait on MRI/MRA for now as patient appears no n-focal and is following commands. ? Cont supportive care on MV for airway protection until alert. ? If pt not waking, or had fevers persisting, consider LP. Fever in ED to 101.1, likely fr om repeat seizures. Unlikely that she would be using drugs if she had encephalitis/meningit is. Alcohol abuse: unknown when she last drank, but family reports heavy daily drinking. ? CIWA protocol with prn Ativan. ? Thiamine, folic acid supplementation daily. ? If still drinking need to assess readiness to quit. Polysubstance abuse in the context of homelessness. Continue supportive care. CV: Hypotension, requiring Levophed to keep MAP > 65. Unclear what is causing this. Do not suspect sepsis. Possibly due to combination of sedation and antiepileptic medications. Ti trate Levophed down as able. PULM: Intubated for airway protection: no documented hypoxia. Daily SBT/SAT once she is awake and able to interact. GI/NUTRITION: NPO for now. Start TF if patient remains intubated overnight again. Old blood in mouth and small amount dark bloody fluid from OG tube. Likely from tongue b iting from seizures. Bloody fluid cleared with lavage. Cont to monitor. Suction to LIS. RENAL/LYTES: No issues. Normal renal function on labs. Monitor lytes. D/c Kaplan later today if UO remains good. ID: Considered possibility of sepsis when pt remained persistently hypotensive yesterday. P t appeared dehydrated, so 30 cc/kg bolus was given to treat hypotension and dehydration, but abx not started as there is no suspected source of infection. Procal and lactate were norm al. WBC count normal. Continue to monitor closely. Blood cultures were drawn at [facility] prior to transfer; I followed up wit h their microbiology lab on 06/24, and neither set showed any growth to date. HEME: No issues. Normal CBC. ENDO: No issues. MUSC/SKIN: Skin care and pressure ulcer prevention per nursing standards. PROPHYLAXIS: Stress ulcer prophylaxis: famotidine while intubated DVT prophylaxis: enoxaparin injection and SCD's while in bed VAP bundle: chlorhexidine oral care and HOB > 30 degrees Disposition: ICU plan of care as above. Code Status: Full Code by default - TBD *Please bill 45 minutes of critical care time spent evaluating the patient, reviewing the d ramu and formulating a plan exclusive of all other procedures. HYUN Larsen 06/24/2019 LuisVan MD - 06/23/2019 9:53 AM [facility] Service: Continuous EEG Monitoring Progress Note Patient Summary: Status epilepticus. Brief Findings: The continuous EEG was reviewed from 3:17AM to 2:45PM. There remains no cl ear posterior dominant rhythm and there is subtle right frontotemporal background slowing. D iffuse beta activity was observed. No electrographic seizures were noted. Sharply contoured waveforms phase reversing at F4/F8 > F3 were noted. Upon further review these waveforms do a ppear epileptiform at times, even though at baseline they are small amplitude and mostly do not disrupt the background. We will continue to monitor this patient's continuous EEG and leave progress notes with any changes. A formal continuous EEG report will follow. Please do not hesitate to contact us with any questions or concerns. Bryan Celis MD [facility] Clinical Neurophysiologist documented in th is encounter Plan of Treatment +--------+---------+ + + + | Date | Type | Specialty | Care Team | Description | +--------+---------+ + + + | 08/07/ | Office | Otolaryngology | Gino Camara MD | | | 2018 | Visit | | [address] | | | | | | [address], | | | | | | [place] [address] | | | | | | [phone] | | | | | | | | +--------+---------+ + + + + +------+--------+ + + | Name | Type | Priori | Associated Diagnoses | Date/Time | | | | ty | | | + +------+--------+ + + | POC Glucose | Lab | Routin | | 06/27/2019 8:08 AM | | | | e | | PDT | + +------+--------+ + + | POC Glucose | Lab | Routin | | 06/27/2019 11:51 AM | | | | e | | PDT | + +------+--------+ + + + + +--------+ + + | Name | Type | Priori | Associated Diagnoses | Order Schedule | | | | ty | | | + + +--------+ + + | Referral to Home | Outpatient | Routin | Status epilepticus | Ordered: 07/03/2019 | | Health | Referral | e | (HCC) | | + + +--------+ + + documented as of this encounter Procedures + +--------+ + + + | Procedure Name | Priori | Date/Time | Associated Diagnosis | Comments | | | ty | | | | + +--------+ + + + | POTASSIUM | Routin | 07/03/2019 | | Results for this | | | e | 11:26 AM | | procedure are in the | | | | PDT | | results section. | + +--------+ + + + | POTASSIUM | Routin | 07/03/2019 | | Results for this | | | e | 4:17 AM | | procedure are in the | | | | PDT | | results section. | + +--------+ + + + | PHOSPHORUS | Routin | 07/03/2019 | | Results for this | | | e | 4:17 AM | | procedure are in the | | | | PDT | | results section. | + +--------+ + + + | MAGNESIUM | Routin | 07/03/2019 | | Results for this | | | e | 4:17 AM | | procedure are in the | | | | PDT | | results section. | + +--------+ + + + | POTASSIUM | Routin | 07/02/2019 | | Results for this | | | e | 4:30 AM | | procedure are in the | | | | PDT | | results section. | + +--------+ + + + | PHOSPHORUS | Routin | 07/02/2019 | | Results for this | | | e | 4:30 AM | | procedure are in the | | | | PDT | | results section. | + +--------+ + + + | MAGNESIUM | Routin | 07/02/2019 | | Results for this | | | e | 4:30 AM | | procedure are in the | | | | PDT | | results section. | + +--------+ + + + | POTASSIUM | Routin | 07/01/2019 | | Results for this | | | e | 7:41 AM | | procedure are in the | | | | PDT | | results section. | + +--------+ + + + | PHOSPHORUS | Routin | 07/01/2019 | | Results for this | | | e | 7:41 AM | | procedure are in the | | | | PDT | | results section. | + +--------+ + + + | MAGNESIUM | Routin | 07/01/2019 | | Results for this | | | e | 7:41 AM | | procedure are in the | | | | PDT | | results section. | + +--------+ + + + | RENAL FUNCTION PANEL | Routin | 07/01/2019 | | Results for this | | | e | 7:41 AM | | procedure are in the | | | | PDT | | results section. | + +--------+ + + + | POTASSIUM | Routin | 06/30/2019 | | Results for this | | | e | 10:31 AM | | procedure are in the | | | | PDT | | results section. | + +--------+ + + + | PHOSPHORUS | Routin | 06/30/2019 | | Results for this | | | e | 5:08 AM | | procedure are in the | | | | PDT | | results section. | + +--------+ + + + | MAGNESIUM | Routin | 06/30/2019 | | Results for this | | | e | 5:08 AM | | procedure are in the | | | | PDT | | results section. | + +--------+ + + + | RENAL FUNCTION PANEL | Routin | 06/30/2019 | | Results for this | | | e | 5:06 AM | | procedure are in the | | | | PDT | | results section. | + +--------+ + + + | POTASSIUM | Routin | 06/30/2019 | | Results for this | | | e | 4:37 AM | | procedure are in the | | | | PDT | | results section. | + +--------+ + + + | POTASSIUM | Routin | 06/29/2019 | | Results for this | | | e | 5:46 PM | | procedure are in the | | | | PDT | | results section. | + +--------+ + + + | POTASSIUM | Routin | 06/29/2019 | | Results for this | | | e | 12:22 PM | | procedure are in the | | | | PDT | | results section. | + +--------+ + + + | MAGNESIUM | Routin | 06/29/2019 | | Results for this | | | e | 5:01 AM | | procedure are in the | | | | PDT | | results section. | + +--------+ + + + | RENAL FUNCTION PANEL | Routin | 06/29/2019 | | Results for this | | | e | 5:01 AM | | procedure are in the | | | | PDT | | results section. | + +--------+ + + + | CBC NO DIFFERENTIAL | Routin | 06/29/2019 | | Results for this | | | e | 4:55 AM | | procedure are in the | | | | PDT | | results section. | + +--------+ + + + | POTASSIUM | Routin | 06/28/2019 | | Results for this | | | e | 5:01 PM | | procedure are in the | | | | PDT | | results section. | + +--------+ + + + | POTASSIUM | STAT | 06/28/2019 | | Results for this | | | | 9:43 AM | | procedure are in the | | | | PDT | | results section. | + +--------+ + + + | PHENYTOIN LEVEL, | Routin | 06/28/2019 | | Results for this | | TOTAL | e | 9:43 AM | | procedure are in the | | | | PDT | | results section. | + +--------+ + + + | POC GLUCOSE (NON | Routin | 06/28/2019 | | Results for this | | ORD) | e | 8:17 AM | | procedure are in the | | | | PDT | | results section. | + +--------+ + + + | CBC WITH | Routin | 06/28/2019 | | Results for this | | DIFFERENTIAL | e | 1:42 AM | | procedure are in the | | | | PDT | | results section. | + +--------+ + + + | PHOSPHORUS | Routin | 06/28/2019 | | Results for this | | | e | 1:42 AM | | procedure are in the | | | | PDT | | results section. | + +--------+ + + + | MAGNESIUM | Routin | 06/28/2019 | | Results for this | | | e | 1:42 AM | | procedure are in the | | | | PDT | | results section. | + +--------+ + + + | BASIC METABOLIC | Routin | 06/28/2019 | | Results for this | | PANEL | e | 1:42 AM | | procedure are in the | | | | PDT | | results section. | + +--------+ + + + | CULTURE, BLOOD | STAT | 06/27/2019 | | Results for this | | | | 5:05 PM | | procedure are in the | | | | PDT | | results section. | + +--------+ + + + | POC GLUCOSE (NON | Routin | 06/27/2019 | | Results for this | | ORD) | e | 5:01 PM | | procedure are in the | | | | PDT | | results section. | + +--------+ + + + | CULTURE, BLOOD | STAT | 06/27/2019 | | Results for this | | | | 4:57 PM | | procedure are in the | | | | PDT | | results section. | + +--------+ + + + | CBC WITH | Routin | 06/27/2019 | | Results for this | | DIFFERENTIAL | e | 4:29 AM | | procedure are in the | | | | PDT | | results section. | + +--------+ + + + | PHOSPHORUS | Routin | 06/27/2019 | | Results for this | | | e | 4:29 AM | | procedure are in the | | | | PDT | | results section. | + +--------+ + + + | MAGNESIUM | Routin | 06/27/2019 | | Results for this | | | e | 4:29 AM | | procedure are in the | | | | PDT | | results section. | + +--------+ + + + | BASIC METABOLIC | Routin | 06/27/2019 | | Results for this | | PANEL | e | 4:29 AM | | procedure are in the | | | | PDT | | results section. | + +--------+ + + + | POC GLUCOSE (NON | Routin | 06/26/2019 | | Results for this | | ORD) | e | 9:25 PM | | procedure are in the | | | | PDT | | results section. | + +--------+ + + + | POC GLUCOSE (NON | Routin | 06/26/2019 | | Results for this | | ORD) | e | 11:45 AM | | procedure are in the | | | | PDT | | results section. | + +--------+ + + + | ECG 12 LEAD | STAT | 06/26/2019 | | Results for this | | | | 10:52 AM | | procedure are in the | | | | PDT | | results section. | + +--------+ + + + | XR CHEST AP PORTABLE | WILLIE | 06/26/2019 | | Results for this | | | | 8:28 AM | | procedure are in the | | | | PDT | | results section. | + +--------+ + + + | PROCALCITONIN, SERUM | Add-On | 06/26/2019 | | Results for this | | | | 4:23 AM | | procedure are in the | | | | PDT | | results section. | + +--------+ + + + | CORTISOL, AM | STAT | 06/26/2019 | | Results for this | | | | 4:03 AM | | procedure are in the | | | | PDT | | results section. | + +--------+ + + + | TSH, REFLEX FREE T4 | Add-On | 06/26/2019 | | Results for this | | | | 4:03 AM | | procedure are in the | | | | PDT | | results section. | + +--------+ + + + | CBC WITH | Routin | 06/26/2019 | | Results for this | | DIFFERENTIAL | e | 4:03 AM | | procedure are in the | | | | PDT | | results section. | + +--------+ + + + | PHOSPHORUS | Routin | 06/26/2019 | | Results for this | | | e | 4:03 AM | | procedure are in the | | | | PDT | | results section. | + +--------+ + + + | MAGNESIUM | Routin | 06/26/2019 | | Results for this | | | e | 4:03 AM | | procedure are in the | | | | PDT | | results section. | + +--------+ + + + | BASIC METABOLIC | Routin | 06/26/2019 | | Results for this | | PANEL | e | 4:03 AM | | procedure are in the | | | | PDT | | results section. | + +--------+ + + + | POC GLUCOSE (NON | Routin | 06/25/2019 | | Results for this | | ORD) | e | 8:57 PM | | procedure are in the | | | | PDT | | results section. | + +--------+ + + + | POC GLUCOSE (NON | Routin | 06/25/2019 | | Results for this | | ORD) | e | 6:18 PM | | procedure are in the | | | | PDT | | results section. | + +--------+ + + + | CT HEAD WO CONTRAST | Routin | 06/25/2019 | | Results for this | | | e | 1:50 PM | | procedure are in the | | | | PDT | | results section. | + +--------+ + + + | POC GLUCOSE (NON | Routin | 06/25/2019 | | Results for this | | ORD) | e | 11:28 AM | | procedure are in the | | | | PDT | | results section. | + +--------+ + + + | POTASSIUM | STAT | 06/25/2019 | | Results for this | | | | 11:26 AM | | procedure are in the | | | | PDT | | results section. | + +--------+ + + + | ECHO COMPLETE | Routin | 06/25/2019 | | Results for this | | | e | 10:25 AM | | procedure are in the | | | | PDT | | results section. | + +--------+ + + + | POC GLUCOSE (NON | Routin | 06/25/2019 | | Results for this | | ORD) | e | 8:36 AM | | procedure are in the | | | | PDT | | results section. | + +--------+ + + + | CBC WITH | STAT | 06/25/2019 | | Results for this | | DIFFERENTIAL | | 3:10 AM | | procedure are in the | | | | PDT | | results section. | + +--------+ + + + | PHOSPHORUS | STAT | 06/25/2019 | | Results for this | | | | 3:10 AM | | procedure are in the | | | | PDT | | results section. | + +--------+ + + + | MAGNESIUM | STAT | 06/25/2019 | | Results for this | | | | 3:10 AM | | procedure are in the | | | | PDT | | results section. | + +--------+ + + + | BASIC METABOLIC | STAT | 06/25/2019 | | Results for this | | PANEL | | 3:10 AM | | procedure are in the | | | | PDT | | results section. | + +--------+ + + + | POTASSIUM | STAT | 06/24/2019 | | Results for this | | | | 8:19 PM | | procedure are in the | | | | PDT | | results section. | + +--------+ + + + | PHOSPHORUS | STAT | 06/24/2019 | | Results for this | | | | 8:19 PM | | procedure are in the | | | | PDT | | results section. | + +--------+ + + + | MAGNESIUM | STAT | 06/24/2019 | | Results for this | | | | 8:19 PM | | procedure are in the | | | | PDT | | results section. | + +--------+ + + + | POC GLUCOSE (NON | Routin | 06/24/2019 | | Results for this | | ORD) | e | 8:08 PM | | procedure are in the | | | | PDT | | results section. | + +--------+ + + + | POC GLUCOSE (NON | Routin | 06/24/2019 | | Results for this | | ORD) | e | 6:13 PM | | procedure are in the | | | | PDT | | results section. | + +--------+ + + + | EEG-CONTINUOUS | STAT | 06/24/2019 | | Results for this | | MONITORING | | 1:33 PM | | procedure are in the | | | | PDT | | results section. | + +--------+ + + + | EEG-CONTINUOUS | STAT | 06/24/2019 | | Results for this | | MONITORING | | 1:33 PM | | procedure are in the | | | | PDT | | results section. | + +--------+ + + + | EEG-CONTINUOUS | STAT | 06/24/2019 | | Results for this | | MONITORING | | 1:33 PM | | procedure are in the | | | | PDT | | results section. | + +--------+ + + + | POC GLUCOSE (NON | Routin | 06/24/2019 | | Results for this | | ORD) | e | 1:21 PM | | procedure are in the | | | | PDT | | results section. | + +--------+ + + + | POC GLUCOSE (NON | Routin | 06/24/2019 | | Results for this | | ORD) | e | 1:15 PM | | procedure are in the | | | | PDT | | results section. | + +--------+ + + + | PHENYTOIN LEVEL, | Add-On | 06/24/2019 | | Results for this | | TOTAL AND FREE | | 9:28 AM | | procedure are in the | | | | PDT | | results section. | + +--------+ + + + | CBC WITH | STAT | 06/24/2019 | | Results for this | | DIFFERENTIAL | | 5:04 AM | | procedure are in the | | | | PDT | | results section. | + +--------+ + + + | PHOSPHORUS | STAT | 06/24/2019 | | Results for this | | | | 5:04 AM | | procedure are in the | | | | PDT | | results section. | + +--------+ + + + | MAGNESIUM | STAT | 06/24/2019 | | Results for this | | | | 5:04 AM | | procedure are in the | | | | PDT | | results section. | + +--------+ + + + | PHENYTOIN LEVEL, | Routin | 06/24/2019 | | Results for this | | TOTAL | e | 5:04 AM | | procedure are in the | | | | PDT | | results section. | + +--------+ + + + | BASIC METABOLIC | STAT | 06/24/2019 | | Results for this | | PANEL | | 5:04 AM | | procedure are in the | | | | PDT | | results section. | + +--------+ + + + | POC GLUCOSE (NON | Routin | 06/23/2019 | | Results for this | | ORD) | e | 10:04 PM | | procedure are in the | | | | PDT | | results section. | + +--------+ + + + | POTASSIUM | STAT | 06/23/2019 | | Results for this | | | | 6:39 PM | | procedure are in the | | | | PDT | | results section. | + +--------+ + + + | MAGNESIUM | STAT | 06/23/2019 | | Results for this | | | | 6:39 PM | | procedure are in the | | | | PDT | | results section. | + +--------+ + + + | XR CHEST AP PORTABLE | STAT | 06/23/2019 | | Results for this | | | | 6:23 PM | | procedure are in the | | | | PDT | | results section. | + +--------+ + + + | POC GLUCOSE (NON | Routin | 06/23/2019 | | Results for this | | ORD) | e | 4:46 PM | | procedure are in the | | | | PDT | | results section. | + +--------+ + + + | LACTIC ACID | WILLIE | 06/23/2019 | | Results for this | | | | 1:20 PM | | procedure are in the | | | | PDT | | results section. | + +--------+ + + + | PROCALCITONIN, SERUM | WILLIE | 06/23/2019 | | Results for this | | | | 1:19 PM | | procedure are in the | | | | PDT | | results section. | + +--------+ + + + | HEPATIC FUNCTION | Add-On | 06/23/2019 | | Results for this | | PANEL | | 1:19 PM | | procedure are in the | | | | PDT | | results section. | + +--------+ + + + | POC GLUCOSE (NON | Routin | 06/23/2019 | | Results for this | | ORD) | e | 11:54 AM | | procedure are in the | | | | PDT | | results section. | + +--------+ + + + | POC GLUCOSE (NON | Routin | 06/23/2019 | | Results for this | | ORD) | e | 8:16 AM | | procedure are in the | | | | PDT | | results section. | + +--------+ + + + | POC BLOOD GAS | Routin | 06/23/2019 | | Results for this | | ARTERIAL | e | 4:22 AM | | procedure are in the | | | | PDT | | results section. | + +--------+ + + + | CBC WITH | STAT | 06/23/2019 | | Results for this | | DIFFERENTIAL | | 4:08 AM | | procedure are in the | | | | PDT | | results section. | + +--------+ + + + | PHOSPHORUS | STAT | 06/23/2019 | | Results for this | | | | 4:08 AM | | procedure are in the | | | | PDT | | results section. | + +--------+ + + + | MAGNESIUM | STAT | 06/23/2019 | | Results for this | | | | 4:08 AM | | procedure are in the | | | | PDT | | results section. | + +--------+ + + + | BASIC METABOLIC | STAT | 06/23/2019 | | Results for this | | PANEL | | 4:08 AM | | procedure are in the | | | | PDT | | results section. | + +--------+ + + + | EEG | STAT | 06/23/2019 | | Results for this | | | | 3:43 AM | | procedure are in the | | | | PDT | | results section. | + +--------+ + + + | LACTIC ACID | STAT | 06/23/2019 | | Results for this | | | | 1:16 AM | | procedure are in the | | | | PDT | | results section. | + +--------+ + + + | XR CHEST AP PORTABLE | STAT | 06/23/2019 | | Results for this | | | | 12:06 AM | | procedure are in the | | | | PDT | | results section. | + +--------+ + + + | CULTURE, | STAT | 06/23/2019 | | Results for this | | RESPIRATORY, LOWER, | | 12:00 AM | | procedure are in the | | SMEAR | | PDT | | results section. | + +--------+ + + + | POC GLUCOSE (NON | Routin | 06/22/2019 | | Results for this | | ORD) | e | 11:44 PM | | procedure are in the | | | | PDT | | results section. | + +--------+ + + + | MRSA NAAT | Routin | 06/22/2019 | | Results for this | | | e | 11:34 PM | | procedure are in the | | | | PDT | | results section. | + +--------+ + + + documented in this encounter Results Potassium (07/03/2019 11:26 AM PDT) + + + + + + | Component | Value | Ref Range | Performed | Pathologist | | | | | At | Signature | + + + + + + | K | 4.1Comment: Testing | 3.5 - 4.9 | [facility] | | | | performed at [facility] | mmol/L | LABORATORY | | | | [facility];[place], [place] | | | | | | [address] | | | | + + + + + + + + | Specimen | + + | Blood | + + + + + + + | Performing | Address | City/State/Zipcode | Phone Number | | Organization | | | | + + + + + | [facility] | [address] | [place] [address] | [phone] | + + + + + Potassium (07/03/2019 4:17 AM PDT) + + + + + + | Component | Value | Ref Range | Performed | Pathologist | | | | | At | Signature | + + + + + + | K | 3.9Comment: Testing | 3.5 - 4.9 | [facility] | | | | performed at [facility];[address] | mmol/L | LABORATORY | | | | [address];[place], [place] | | | | | | [address] | | | | + + + + + + + + | Specimen | + + | Blood | + + + + + + + | Performing | Address | City/State/Zipcode | Phone Number | | Organization | | | | + + + + + | [facility] | [address] [facility] | [place] [address] | [phone] | + + + + + Phosphorus (07/03/2019 4:17 AM PDT) + + + + + + | Component | Value | Ref Range | Performed | Pathologist | | | | | At | Signature | + + + + + + | Phosphorus | 4.6Comment: Testing | 2.3 - 4.8 mg/dL | [facility] | | | | performed at [facility], [address] | | LABORATORY | | | | [address], | | | | | | [place] [address] | | | | + + + + + + + + | Specimen | + + | Blood | + + + + + + + | Performing | Address | City/State/Zipcode | Phone Number | | Organization | | | | + + + + + | [facility] | [address] | [place] [address] | [phone] | + + + + + Magnesium (07/03/2019 4:17 AM PDT) + + + + + + | Component | Value | Ref Range | Performed | Pathologist | | | | | At | Signature | + + + + + + | Magnesium | 2.2Comment: Testing | 1.7 - 2.4 mg/dL | [facility] | | | | performed at [facility], [address] | | LABORATORY | | | | [address], | | | | | | [place] [address] | | | | + + + + + + + + | Specimen | + + | Blood | + + + + + + + | Performing | Address | City/State/Zipcode | Phone Number | | Organization | | | | + + + + + | [facility] | [address] | [place] [address] | [phone] | + + + + + Potassium (07/02/2019 4:30 AM PDT) + + + + + + | Component | Value | Ref Range | Performed | Pathologist | | | | | At | Signature | + + + + + + | K | 4.1Comment: Testing | 3.5 - 4.9 | [facility] | | | | performed at [facility];[address] | mmol/L | LABORATORY | | | | [address];[place], [place] | | | | | | [address] | | | | + + + + + + + + | Specimen | + + | Blood | + + + + + + + | Performing | Address | City/State/Zipcode | Phone Number | | Organization | | | | + + + + + | [facility] | [address] | [place] [address] | [phone] | + + + + + Phosphorus (07/02/2019 4:30 AM PDT) + + + + + + | Component | Value | Ref Range | Performed | Pathologist | | | | | At | Signature | + + + + + + | Phosphorus | 4.6Comment: Testing | 2.3 - 4.8 mg/dL | [facility] | | | | performed at [facility], [address] | | LABORATORY | | | | [address], | | | | | | [place] [address] | | | | + + + + + + + + | Specimen | + + | Blood | + + + + + + + | Performing | Address | City/State/Zipcode | Phone Number | | Organization | | | | + + + + + | [facility] | [address] | [place] [address] | [phone] | + + + + + Magnesium (07/02/2019 4:30 AM PDT) + + + + + + | Component | Value | Ref Range | Performed | Pathologist | | | | | At | Signature | + + + + + + | Magnesium | 2.1Comment: Testing | 1.7 - 2.4 mg/dL | [facility] | | | | performed at [facility], [address] | | LABORATORY | | | | [address], | | | | | | [place] [address] | | | | + + + + + + + + | Specimen | + + | Blood | + + + + + + + | Performing | Address | City/State/Zipcode | Phone Number | | Organization | | | | + + + + + | [facility] | [address] | [place] [address] | [phone] | + + + + + Renal Function Panel (07/01/2019 7:41 AM PDT) + + + + + + | Component | Value | Ref Range | Performed | Pathologist | | | | | At | Signature | + + + + + + | Na | 140 | 135 - 145 | [facility] | | | | | mmol/L | LABORATORY | | + + + + + + | K | 3.8 | 3.5 - 4.9 | [facility] | | | | | mmol/L | LABORATORY | | + + + + + + | Cl | 103 | 99 - 109 mmol/L | [facility] | | | | | | LABORATORY | | + + + + + + | CO2 | 29 | 23 - 32 mmol/L | [facility] | | | | | | LABORATORY | | + + + + + + | Anion Gap | 12 | 5 - 20 mmol/L | [facility] | | | | | | LABORATORY | | + + + + + + | Glucose | 89 | 65 - 99 mg/dL | [facility] | | | | | | LABORATORY | | + + + + + + | BUN | 8 | 8 - 25 mg/dL | [facility] | | | | | | LABORATORY | | + + + + + + | Creatinine | 0.61 | 0.50 - 1.00 | [facility] | | | | | mg/dL | LABORATORY | | + + + + + + | Calcium | 9.1 | 8.5 - 10.5 | [facility] | | | | | mg/dL | LABORATORY | | + + + + + + | Albumin | 4.4 | 3.6 - 5.0 g/dL | [facility] | | | | | | LABORATORY | | + + + + + + | Phosphorus | 3.6 | 2.3 - 4.8 mg/dL | [facility] | | | | | | LABORATORY | | + + + + + + | Estimated | >60Comment: GFR <60: | >60 | [facility] | | | GFR | CHRONIC KIDNEY DISEASE, | mL/min/1.73m2 | LABORATORY | | | | IF FOUND OVER A 3 MONTH | | | | | | PERIOD.GFR <15: KIDNEY | | | | | | FAILURE.FOR | | | | | | AMERICANS, MULTIPLY THE | | | | | | CALCULATED GFR BY | | | | | | 1.210.This eGFR is | | | | | | calculated using the | | | | | | MDRD IDMS traceable | | | | | | equation.Testing | | | | | | performed at [facility] | | | | | | [facility];[place], [place] | | | | | | [address] | | | | + + + + + + + + | Specimen | + + | | + + + + + + + | Performing | Address | City/State/Zipcode | Phone Number | | Organization | | | | + + + + + | [facility] | [address] | [place] [address] | [phone] | + + + + + Phosphorus (07/01/2019 7:41 AM PDT) + + + + + + | Component | Value | Ref Range | Performed | Pathologist | | | | | At | Signature | + + + + + + | Phosphorus | 3.5Comment: Testing | 2.3 - 4.8 mg/dL | [facility] | | | | performed at [facility];[address] | | LABORATORY | | | | [address];[place] | | | | | | [address] | | | | + + + + + + + + | Specimen | + + | | + + + + + + + | Performing | Address | City/State/Zipcode | Phone Number | | Organization | | | | + + + + + | [facility] | [address] | [place] [address] | [phone] | + + + + + Magnesium (07/01/2019 7:41 AM PDT) + + + + + + | Component | Value | Ref Range | Performed | Pathologist | | | | | At | Signature | + + + + + + | Magnesium | 1.8Comment: Testing | 1.7 - 2.4 mg/dL | [facility] | | | | performed at [facility];[address] | | LABORATORY | | | | [facility];[place], [place] | | | | | | [address] | | | | + + + + + + + + | Specimen | + + | | + + + + + + + | Performing | Address | City/State/Zipcode | Phone Number | | Organization | | | | + + + + + | [facility] | [address] | [place] [address] | [phone] | + + + + + Potassium (07/01/2019 7:41 AM PDT) + + + + + + | Component | Value | Ref Range | Performed | Pathologist | | | | | At | Signature | + + + + + + | K | 3.9Comment: Testing | 3.5 - 4.9 | [facility] | | | | performed at [facility];[address] | mmol/L | LABORATORY | | | | [address];[place] | | | | | | [address] | | | | + + + + + + + + | Specimen | + + | | + + + + + + + | Performing | Address | City/State/Zipcode | Phone Number | | Organization | | | | + + + + + | [facility] | [address] | [place] [address] | [phone] | + + + + + Potassium (06/30/2019 10:31 AM PDT) + + + + + + | Component | Value | Ref Range | Performed | Pathologist | | | | | At | Signature | + + + + + + | K | 3.4 (L)Comment: Testing | 3.5 - 4.9 | [facility] | | | | performed at [facility];[address] | mmol/L | LABORATORY | | | | [address];[place] | | | | | | [address] | | | | + + + + + + + + | Specimen | + + | Blood | + + + + + + + | Performing | Address | City/State/Zipcode | Phone Number | | Organization | | | | + + + + + | [facility] | [address] | [place] [address] | [phone] | + + + + + Phosphorus (06/30/2019 5:08 AM PDT) + + + + + + | Component | Value | Ref Range | Performed | Pathologist | | | | | At | Signature | + + + + + + | Phosphorus | 3.0Comment: Testing | 2.3 - 4.8 mg/dL | [facility] | | | | performed at [facility], [address] | | LABORATORY | | | | [address], | | | | | | [place] [address] | | | | + + + + + + + + | Specimen | + + | Blood | + + + + + + + | Performing | Address | City/State/Zipcode | Phone Number | | Organization | | | | + + + + + | [facility] | [address] | [place] [address] | [phone] | + + + + + Magnesium (06/30/2019 5:08 AM PDT) + + + + + + | Component | Value | Ref Range | Performed | Pathologist | | | | | At | Signature | + + + + + + | Magnesium | 2.0Comment: Testing | 1.7 - 2.4 mg/dL | [facility] | | | | performed at [facility], [address] | | LABORATORY | | | | [address], | | | | | | [place] [address] | | | | + + + + + + + + | Specimen | + + | Blood | + + + + + + + | Performing | Address | City/State/Zipcode | Phone Number | | Organization | | | | + + + + + | [facility] | [address] | [place] [address] | [phone] | + + + + + Renal Function Panel (06/30/2019 5:06 AM PDT) + + + + + + | Component | Value | Ref Range | Performed | Pathologist | | | | | At | Signature | + + + + + + | Na | 140 | 135 - 145 | [facility] | | | | | mmol/L | LABORATORY | | + + + + + + | K | 3.7 | 3.5 - 4.9 | [facility] | | | | | mmol/L | LABORATORY | | + + + + + + | Cl | 106 | 99 - 109 mmol/L | [facility] | | | | | | LABORATORY | | + + + + + + | CO2 | 29 | 23 - 32 mmol/L | [facility] | | | | | | LABORATORY | | + + + + + + | Anion Gap | 9 | 5 - 20 mmol/L | [facility] | | | | | | LABORATORY | | + + + + + + | Glucose | 95 | 65 - 99 mg/dL | [facility] | | | | | | LABORATORY | | + + + + + + | BUN | 4 (L) | 8 - 25 mg/dL | [facility] | | | | | | LABORATORY | | + + + + + + | Creatinine | 0.7 | 0.50 - 1.00 | [facility] | | | | | mg/dL | LABORATORY | | + + + + + + | Calcium | 9.2 | 8.5 - 10.5 | [facility] | | | | | mg/dL | LABORATORY | | + + + + + + | Albumin | 3.5 (L) | 3.6 - 5.0 g/dL | [facility] | | | | | | LABORATORY | | + + + + + + | Phosphorus | 2.9 | 2.3 - 4.8 mg/dL | [facility] | | | | | | LABORATORY | | + + + + + + | Estimated | >60Comment: GFR <60: | >60 | [facility] | | | GFR | CHRONIC KIDNEY DISEASE, | mL/min/1.73m2 | LABORATORY | | | | IF FOUND OVER A 3 MONTH | | | | | | PERIOD.GFR <15: KIDNEY | | | | | | FAILURE.FOR | | | | | | AMERICANS, MULTIPLY THE | | | | | | CALCULATED GFR BY | | | | | | 1.210.This eGFR is | | | | | | calculated using the | | | | | | MDRD IDMS traceable | | | | | | equation.Testing | | | | | | performed at [facility], [address] | | | | | | [facility], | | | | | | [place] [address] | | | | + + + + + + + + | Specimen | + + | Blood | + + + + + + + | Performing | Address | City/State/Zipcode | Phone Number | | Organization | | | | + + + + + | [facility] | [address] | [place] [address] | [phone] | + + + + + Potassium (06/30/2019 4:37 AM PDT) + + + + + + | Component | Value | Ref Range | Performed | Pathologist | | | | | At | Signature | + + + + + + | K | 3.6Comment: Testing | 3.5 - 4.9 | [facility] | | | | performed at [facility];[address] | mmol/L | LABORATORY | | | | [facility];[place], [place] | | | | | | [address] | | | | + + + + + + + + | Specimen | + + | Blood | + + + + + + + | Performing | Address | City/State/Zipcode | Phone Number | | Organization | | | | + + + + + | [facility] | [address] | [place] [address] | [phone] | + + + + + Potassium (06/29/2019 5:46 PM PDT) + + + + + + | Component | Value | Ref Range | Performed | Pathologist | | | | | At | Signature | + + + + + + | K | 4.1Comment: Testing | 3.5 - 4.9 | [facility] | | | | performed at [facility];[address] | mmol/L | LABORATORY | | | | [address];[place] | | | | | | [address] | | | | + + + + + + + + | Specimen | + + | Blood | + + + + + + + | Performing | Address | City/State/Zipcode | Phone Number | | Organization | | | | + + + + + | [facility] | [address] | [place] [address] | [phone] | + + + + + Potassium (06/29/2019 12:22 PM PDT) + + + + + + | Component | Value | Ref Range | Performed | Pathologist | | | | | At | Signature | + + + + + + | K | 3.4 (L)Comment: Testing | 3.5 - 4.9 | [facility] | | | | performed at [facility];[address] | mmol/L | LABORATORY | | | | [address];[place], [place] | | | | | | [address] | | | | + + + + + + + + | Specimen | + + | Blood | + + + + + + + | Performing | Address | City/State/Zipcode | Phone Number | | Organization | | | | + + + + + | [facility] | [address] | [place] [address] | [phone] | + + + + + Magnesium (06/29/2019 5:01 AM PDT) + + + + + + | Component | Value | Ref Range | Performed | Pathologist | | | | | At | Signature | + + + + + + | Magnesium | 1.9Comment: Testing | 1.7 - 2.4 mg/dL | [facility] | | | | performed at [facility], [address] | | LABORATORY | | | | [address], | | | | | | [place] [address] | | | | + + + + + + + + | Specimen | + + | | + + + + + + + | Performing | Address | City/State/Zipcode | Phone Number | | Organization | | | | + + + + + | [facility] | [address] | [place] [address] | [phone] | + + + + + Renal Function Panel (06/29/2019 5:01 AM PDT) + + + + + + | Component | Value | Ref Range | Performed | Pathologist | | | | | At | Signature | + + + + + + | Na | 141 | 135 - 145 | [facility] | | | | | mmol/L | LABORATORY | | + + + + + + | K | 3.6 | 3.5 - 4.9 | [facility] | | | | | mmol/L | LABORATORY | | + + + + + + | Cl | 107 | 99 - 109 mmol/L | [facility] | | | | | | LABORATORY | | + + + + + + | CO2 | 28 | 23 - 32 mmol/L | [facility] | | | | | | LABORATORY | | + + + + + + | Anion Gap | 10 | 5 - 20 mmol/L | [facility] | | | | | | LABORATORY | | + + + + + + | Glucose | 95 | 65 - 99 mg/dL | [facility] | | | | | | LABORATORY | | + + + + + + | BUN | 5 (L) | 8 - 25 mg/dL | [facility] | | | | | | LABORATORY | | + + + + + + | Creatinine | 0.6 | 0.50 - 1.00 | [facility] | | | | | mg/dL | LABORATORY | | + + + + + + | Calcium | 8.6 | 8.5 - 10.5 | [facility] | | | | | mg/dL | LABORATORY | | + + + + + + | Albumin | 3.1 (L) | 3.6 - 5.0 g/dL | [facility] | | | | | | LABORATORY | | + + + + + + | Phosphorus | 2.1 (L) | 2.3 - 4.8 mg/dL | [facility] | | | | | | LABORATORY | | + + + + + + | Estimated | >60Comment: GFR <60: | >60 | [facility] | | | GFR | CHRONIC KIDNEY DISEASE, | mL/min/1.73m2 | LABORATORY | | | | IF FOUND OVER A 3 MONTH | | | | | | PERIOD.GFR <15: KIDNEY | | | | | | FAILURE.FOR | | | | | | AMERICANS, MULTIPLY THE | | | | | | CALCULATED GFR BY | | | | | | 1.210.This eGFR is | | | | | | calculated using the | | | | | | MDRD IDMS traceable | | | | | | equation.Testing | | | | | | performed at [facility], [address] | | | | | | [facility], | | | | | | [place] [address] | | | | + + + + + + + + | Specimen | + + | Blood | + + + + + + + | Performing | Address | City/State/Zipcode | Phone Number | | Organization | | | | + + + + + | [facility] | [address] | [place] [address] | [phone] | + + + + + CBC no Differential (06/29/2019 4:55 AM PDT) + + + + + + | Component | Value | Ref Range | Performed | Pathologist | | | | | At | Signature | + + + + + + | WBC | 4.58 | 3.80 - 11.00 | [facility] | | | | | K/uL | LABORATORY | | + + + + + + | RBC | 3.93 | 3.70 - 5.10 | [facility] | | | | | M/uL | LABORATORY | | + + + + + + | Hemoglobin | 12.4 | 11.3 - 15.5 | [facility] | | | | | g/dL | LABORATORY | | + + + + + + | Hematocrit | 35.9 | 34.0 - 46.0 % | [facility] | | | | | | LABORATORY | | + + + + + + | MCV | 91.4 | 80.0 - 100.0 fl | [facility] | | | | | | LABORATORY | | + + + + + + | MCH | 31.6 | 27.0 - 34.0 pg | [facility] | | | | | | LABORATORY | | + + + + + + | MCHC | 34.6 | 32.0 - 35.5 | [facility] | | | | | g/dL | LABORATORY | | + + + + + + | RDW-SD | 43.3 | 37 - 53 fl | [facility] | | | | | | LABORATORY | | + + + + + + | Platelet | 183 | 150 - 400 K/uL | [facility] | | | Count | | | LABORATORY | | + + + + + + | MPV | 8.1Comment: Testing | fl | [facility] | | | | performed at [facility], [address] | | LABORATORY | | | | [facility], | | | | | | [place] [address] | | | | + + + + + + + + | Specimen | + + | | + + + + + + + | Performing | Address | City/State/Zipcode | Phone Number | | Organization | | | | + + + + + | [facility] | [address] | [place] [address] | [phone] | + + + + + Potassium (06/28/2019 5:01 PM PDT) + + + + + + | Component | Value | Ref Range | Performed | Pathologist | | | | | At | Signature | + + + + + + | K | 3.5Comment: Testing | 3.5 - 4.9 | [facility] | | | | performed at [facility];[address] | mmol/L | LABORATORY | | | | [address];[place], [place] | | | | | | [address] | | | | + + + + + + + + | Specimen | + + | Blood | + + + + + + + | Performing | Address | City/State/Zipcode | Phone Number | | Organization | | | | + + + + + | [facility] | [address] | [place] [address] | [phone] | + + + + + Potassium (06/28/2019 9:43 AM PDT) + + + + + + | Component | Value | Ref Range | Performed | Pathologist | | | | | At | Signature | + + + + + + | K | 3.1 (L)Comment: Testing | 3.5 - 4.9 | [facility] | | | | performed at [facility];[address] | mmol/L | LABORATORY | | | | [facility] | | | | | | [address] | | | | + + + + + + + + | Specimen | + + | Blood | + + + + + + + | Performing | Address | City/State/Zipcode | Phone Number | | Organization | | | | + + + + + | [facility] | [address] | [place] [address] | [phone] | + + + + + Phenytoin Level, Total (06/28/2019 9:43 AM PDT) + + + + + + | Component | Value | Ref Range | Performed | Pathologist | | | | | At | Signature | + + + + + + | Date of | | | [facility] | | | Last Dose | | | LABORATORY | | + + + + + + | Time of | | | [facility] | | | Last Dose | | | LABORATORY | | + + + + + + | Dilantin | 5.1 (L)Comment: Testing | 10 - 20 ug/mL | [facility] | | | | performed at [facility] | | LABORATORY | | | | [address];[place], [place] | | | | | | [address] | | | | + + + + + + + + | Specimen | + + | Blood | + + + + + + + | Performing | Address | City/State/Zipcode | Phone Number | | Organization | | | | + + + + + | [facility] | [address] | [place] [address] | [phone] | + + + + + POC Glucose (06/28/2019 8:17 AM PDT) + + + + + + | Component | Value | Ref Range | Performed | Pathologist | | | | | At | Signature | + + + + + + | Glucose, | 148 (H)Comment: Testing | 65 - 99 mg/dL | [facility] | | | POC | performed at [facility];[address] | | LABORATORY | | | | [address];[place] | | | | | | [address] | | | | + + + + + + + + | Specimen | + + | | + + + + + + + | Performing | Address | City/State/Zipcode | Phone Number | | Organization | | | | + + + + + | [facility] | [address] | [place] [address] | [phone] | + + + + + Phosphorus (06/28/2019 1:42 AM PDT) + + + + + + | Component | Value | Ref Range | Performed | Pathologist | | | | | At | Signature | + + + + + + | Phosphorus | 2.8Comment: Testing | 2.3 - 4.8 mg/dL | [facility] | | | | performed at [facility], [address] | LABORATORY | | | | [address], | | | | | | [place] [address] | | | | + + + + + + + + | Specimen | + + | Blood | + + + + + + + | Performing | Address | City/State/Zipcode | Phone Number | | Organization | | | | + + + + + | [facility] | [address] | [place] [address] | [phone] | + + + + + Magnesium (06/28/2019 1:42 AM PDT) + + + + + + | Component | Value | Ref Range | Performed | Pathologist | | | | | At | Signature | + + + + + + | Magnesium | 1.8Comment: Testing | 1.7 - 2.4 mg/dL | [facility] | | | | performed at [facility], [address] | | LABORATORY | | | | [facility], | | | | | | [place] [address] | | | | + + + + + + + + | Specimen | + + | Blood | + + + + + + + | Performing | Address | City/State/Zipcode | Phone Number | | Organization | | | | + + + + + | [facility] | [address] | [place] [address] | [phone] | + + + + + CBC with Differential (06/28/2019 1:42 AM PDT) + + + + + + | Component | Value | Ref Range | Performed | Pathologist | | | | | At | Signature | + + + + + + | WBC | 5.18 | 3.80 - 11.00 | [facility] | | | | | K/uL | LABORATORY | | + + + + + + | RBC | 4.04 | 3.70 - 5.10 | [facility] | | | | | M/uL | LABORATORY | | + + + + + + | Hemoglobin | 12.6 | 11.3 - 15.5 | [facility] | | | | | g/dL | LABORATORY | | + + + + + + | Hematocrit | 37.0 | 34.0 - 46.0 % | [facility] | | | | | | LABORATORY | | + + + + + + | MCV | 91.5 | 80.0 - 100.0 fl | [facility] | | | | | | LABORATORY | | + + + + + + | MCH | 31.2 | 27.0 - 34.0 pg | [facility] | | | | | | LABORATORY | | + + + + + + | MCHC | 34.1 | 32.0 - 35.5 | [facility] | | | | | g/dL | LABORATORY | | + + + + + + | RDW-SD | 42.4 | 37 - 53 fl | [facility] | | | | | | LABORATORY | | + + + + + + | Platelet | 198 | 150 - 400 K/uL | [facility] | | | Count | | | LABORATORY | | + + + + + + | MPV | 8.3 | fl | [facility] | | | | | | LABORATORY | | + + + + + + | Diff Type | AUTOMATED | | [facility] | | | | | | LABORATORY | | + + + + + + | % | 62.45 | % | [facility] | | | Neutrophils | | | LABORATORY | | + + + + + + | % | 30.26 | % | [facility] | | | Lymphocytes | | | LABORATORY | | + + + + + + | Monocyte % | 5.95 | % | [facility] | | | | | | LABORATORY | | + + + + + + | Eosinophils | 0.47 | % | [facility] | | | % | | | LABORATORY | | + + + + + + | Basophils % | 0.87 | % | [facility] | | | | | | LABORATORY | | + + + + + + | Neutrophils | 3.24 | 1.90 - 7.40 | [facility] | | | , Absolute | | K/uL | LABORATORY | | + + + + + + | Absolute | 1.57 | 1.00 - 3.90 | [facility] | | | Lymphocytes | | K/uL | LABORATORY | | + + + + + + | Absolute | 0.31 | 0.00 - 0.80 | [facility] | | | Monocytes | | K/uL | LABORATORY | | + + + + + + | Eosinophils | 0.02 | 0.00 - 0.50 | [facility] | | | , Absolute | | K/uL | LABORATORY | | + + + + + + | Basophils, | 0.05Comment: Testing | 0.00 - 0.10 | [facility] | | | Absolute | performed at [facility], [address] | K/uL | LABORATORY | | | | [place], | | | | | | [place] [address] | | | | + + + + + + + + | Specimen | + + | Blood | + + + + + + + | Performing | Address | City/State/Zipcode | Phone Number | | Organization | | | | + + + + + | [facility] | [address] | [place] [address] | [phone] | + + + + + Basic Metabolic Panel (06/28/2019 1:42 AM PDT) + + + + + + | Component | Value | Ref Range | Performed | Pathologist | | | | | At | Signature | + + + + + + | Na | 139 | 135 - 145 | [facility] | | | | | mmol/L | LABORATORY | | + + + + + + | K | 3.6 | 3.5 - 4.9 | [facility] | | | | | mmol/L | LABORATORY | | + + + + + + | Cl | 107 | 99 - 109 mmol/L | [facility] | | | | | | LABORATORY | | + + + + + + | CO2 | 26 | 23 - 32 mmol/L | [facility] | | | | | | LABORATORY | | + + + + + + | Anion Gap | 10 | 5 - 20 mmol/L | [facility] | | | | | | LABORATORY | | + + + + + + | Glucose | 77 | 65 - 99 mg/dL | [facility] | | | | | | LABORATORY | | + + + + + + | BUN | 11 | 8 - 25 mg/dL | [facility] | | | | | | LABORATORY | | + + + + + + | Creatinine | 0.5 | 0.50 - 1.00 | [facility] | | | | | mg/dL | LABORATORY | | + + + + + + | BUN/Creatin | 22 | | [facility] | | | ine Ratio | | | LABORATORY | | + + + + + + | Calcium | 8.0 (L) | 8.5 - 10.5 | [facility] | | | | | mg/dL | LABORATORY | | + + + + + + | Estimated | >60Comment: GFR <60: | >60 | [facility] | | | GFR | CHRONIC KIDNEY DISEASE, | mL/min/1.73m2 | LABORATORY | | | | IF FOUND OVER A 3 MONTH | | | | | | PERIOD.GFR <15: KIDNEY | | | | | | FAILURE.FOR | | | | | | AMERICANS, MULTIPLY THE | | | | | | CALCULATED GFR BY | | | | | | 1.210.This eGFR is | | | | | | calculated using the | | | | | | MDRD IDDE traceable | | | | | | equation.Testing | | | | | | performed at [facility], [address] | | | | | | [facility], | | | | | | [place] [address] | | | | + + + + + + + + | Specimen | + + | Blood | + + + + + + + | Performing | Address | City/State/Zipcode | Phone Number | | Organization | | | | + + + + + | [facility] | [address] | [place] [address] | [phone] | + + + + + Culture, Blood (06/27/2019 5:05 PM PDT) + + + + + + | Component | Value | Ref Range | Performed | Pathologist | | | | | At | Signature | + + + + + + | Special | RVyAC | | [facility] | | | Requests | | | LABORATORY | | + + + + + + | Special | Testing performed at | | [facility] | | | Requests | [facility] | | LABORATORY | | | | [address];[place] [address] | | | | + + + + + + | RESULT | NO GROWTH 6 DAYS | | [facility] | | | | | | LABORATORY | | + + + + + + | RESULT | Testing performed at | | [facility] | | | | [facility], [address] | | LABORATORY | | | | [place] | | | | | | [id number]: Testing | | | | | | performed at [facility], [address] | | | | | | [address] [place] | | | | | | [address] | | | | + + + + + + + + | Specimen | + + | Blood - Peripheral | | blood specimen | | (specimen) | + + + + + + + | Performing | Address | City/State/Zipcode | Phone Number | | Organization | | | | + + + + + | [facility] | [address] | [place] [address] | [phone] | + + + + + POC Glucose (06/27/2019 5:01 PM PDT) + + + + + + | Component | Value | Ref Range | Performed | Pathologist | | | | | At | Signature | + + + + + + | Glucose, | 95Comment: Testing | 65 - 99 mg/dL | [facility] | | | POC | performed at [facility];[address] | | LABORATORY | | | | [address];[place] | | | | | | [address] | | | | + + + + + + + + | Specimen | + + | | + + + + + + + | Performing | Address | City/State/Zipcode | Phone Number | | Organization | | | | + + + + + | [facility] | [address] | [place] [address] | [phone] | + + + + + Culture, Blood (06/27/2019 4:57 PM PDT) + + + + + + | Component | Value | Ref Range | Performed | Pathologist | | | | | At | Signature | + + + + + + | Special | L.AC | | [facility] | | | Requests | | | LABORATORY | | + + + + + + | Special | Testing performed at | | [facility] | | | Requests | [facility];[address] | | LABORATORY | | | | [address];[place] [address] | | | | + + + + + + | RESULT | NO GROWTH 6 DAYS | | [facility] | | | | | | LABORATORY | | + + + + + + | RESULT | Testing performed at | | [facility] | | | | [facility], [address] [facility] | | LABORATORY | | | | [place] | | | | | | [address]Sujybqt: Testing | | | | | | performed at [facility], [address] | | | | | | [place] | | | | | | [address] | | | | + + + + + + + + | Specimen | + + | Blood - Peripheral | | blood specimen | | (specimen) | + + + + + + + | Performing | Address | City/State/Zipcode | Phone Number | | Organization | | | | + + + + + | [facility] | [address] | [place] [address] | [phone] | + + + + + Phosphorus (06/27/2019 4:29 AM PDT) + + + + + + | Component | Value | Ref Range | Performed | Pathologist | | | | | At | Signature | + + + + + + | Phosphorus | 3.3Comment: Testing | 2.3 - 4.8 mg/dL | [facility] | | | | performed at [facility], [address] | | LABORATORY | | | | [address], | | | | | | [place] [address] | | | | + + + + + + + + | Specimen | + + | Blood | + + + + + + + | Performing | Address | City/State/Zipcode | Phone Number | | Organization | | | | + + + + + | [facility] | [address] | [place] [address] | [phone] | + + + + + Magnesium (06/27/2019 4:29 AM PDT) + + + + + + | Component | Value | Ref Range | Performed | Pathologist | | | | | At | Signature | + + + + + + | Magnesium | 1.6 (L)Comment: Testing | 1.7 - 2.4 mg/dL | [facility] | | | | performed at L, [address] | | LABORATORY | | | | [address], | | | | | | [place] [address] | | | | + + + + + + + + | Specimen | + + | Blood | + + + + + + + | Performing | Address | City/State/Zipcode | Phone Number | | Organization | | | | + + + + + | [facility] | [address] | [place] [address] | [phone] | + + + + + CBC with Differential (06/27/2019 4:29 AM PDT) + + + + + + | Component | Value | Ref Range | Performed | Pathologist | | | | | At | Signature | + + + + + + | WBC | 5.76 | 3.80 - 11.00 | [facility] | | | | | K/uL | LABORATORY | | + + + + + + | RBC | 4.41 | 3.70 - 5.10 | [facility] | | | | | M/uL | LABORATORY | | + + + + + + | Hemoglobin | 13.8 | 11.3 - 15.5 | [facility] | | | | | g/dL | LABORATORY | | + + + + + + | Hematocrit | 40.4 | 34.0 - 46.0 % | [facility] | | | | | | LABORATORY | | + + + + + + | MCV | 91.5 | 80.0 - 100.0 fl | [facility] | | | | | | LABORATORY | | + + + + + + | MCH | 31.3 | 27.0 - 34.0 pg | [facility] | | | | | | LABORATORY | | + + + + + + | MCHC | 34.3 | 32.0 - 35.5 | [facility] | | | | | g/dL | LABORATORY | | + + + + + + | RDW-SD | 42.4 | 37 - 53 fl | [facility] | | | | | | LABORATORY | | + + + + + + | Platelet | 207 | 150 - 400 K/uL | [facility] | | | Count | | | LABORATORY | | + + + + + + | MPV | 8.1 | fl | [facility] | | | | | | LABORATORY | | + + + + + + | Diff Type | AUTOMATED | | [facility] | | | | | | LABORATORY | | + + + + + + | % | 82.36 | % | [facility] | | | Neutrophils | | | LABORATORY | | + + + + + + | % | 14.15 | % | [facility] | | | Lymphocytes | | | LABORATORY | | + + + + + + | Monocyte % | 2.75 | % | [facility] | | | | | | LABORATORY | | + + + + + + | Eosinophils | 0.32 | % | [facility] | | | % | | | LABORATORY | | + + + + + + | Basophils % | 0.42 | % | [facility] | | | | | | LABORATORY | | + + + + + + | Neutrophils | 4.75 | 1.90 - 7.40 | [facility] | | | , Absolute | | K/uL | LABORATORY | | + + + + + + | Absolute | 0.82 (L) | 1.00 - 3.90 | [facility] | | | Lymphocytes | | K/uL | LABORATORY | | + + + + + + | Absolute | 0.16 | 0.00 - 0.80 | [facility] | | | Monocytes | | K/uL | LABORATORY | | + + + + + + | Eosinophils | 0.02 | 0.00 - 0.50 | [facility] | | | , Absolute | | K/uL | LABORATORY | | + + + + + + | Basophils, | 0.02Comment: Testing | 0.00 - 0.10 | [facility] | | | Absolute | performed at [facility], [address] | K/uL | LABORATORY | | | | [place] [place], | | | | | | [place] [address] | | | | + + + + + + + + | Specimen | + + | Blood | + + + + + + + | Performing | Address | City/State/Zipcode | Phone Number | | Organization | | | | + + + + + | [facility] | [address] | [place] [address] | [phone] | + + + + + Basic Metabolic Panel (06/27/2019 4:29 AM PDT) + + + + + + | Component | Value | Ref Range | Performed | Pathologist | | | | | At | Signature | + + + + + + | Na | 138 | 135 - 145 | [facility] | | | | | mmol/L | LABORATORY | | + + + + + + | K | 3.3 (L) | 3.5 - 4.9 | [facility] | | | | | mmol/L | LABORATORY | | + + + + + + | Cl | 104 | 99 - 109 mmol/L | [facility] | | | | | | LABORATORY | | + + + + + + | CO2 | 23 | 23 - 32 mmol/L | [facility] | | | | | | LABORATORY | | + + + + + + | Anion Gap | 14 | 5 - 20 mmol/L | [facility] | | | | | | LABORATORY | | + + + + + + | Glucose | 91 | 65 - 99 mg/dL | [facility] | | | | | | LABORATORY | | + + + + + + | BUN | 7 (L) | 8 - 25 mg/dL | [facility] | | | | | | LABORATORY | | + + + + + + | Creatinine | 0.5 | 0.50 - 1.00 | [facility] | | | | | mg/dL | LABORATORY | | + + + + + + | BUN/Creatin | 14 | | [facility] | | | ine Ratio | | | LABORATORY | | + + + + + + | Calcium | 8.6 | 8.5 - 10.5 | [facility] | | | | | mg/dL | LABORATORY | | + + + + + + | Estimated | >60Comment: GFR <60: | >60 | [facility] | | | GFR | CHRONIC KIDNEY DISEASE, | mL/min/1.73m2 | LABORATORY | | | | IF FOUND OVER A 3 MONTH | | | | | | PERIOD.GFR <15: KIDNEY | | | | | | FAILURE.FOR | | | | | | AMERICANS, MULTIPLY THE | | | | | | CALCULATED GFR BY | | | | | | 1.210.This eGFR is | | | | | | calculated using the | | | | | | [facility]D [facility] traceable | | | | | | equation.Testing | | | | | | performed at [facility], [address] | | | | | | [facility], | | | | | | [place] [address] | | | | + + + + + + + + | Specimen | + + | Blood | + + + + + + + | Performing | Address | City/State/Zipcode | Phone Number | | Organization | | | | + + + + + | [facility] | [address] | [place] [address] | [phone] | + + + + + POC Glucose (06/26/2019 9:25 PM PDT) + + + + + + | Component | Value | Ref Range | Performed | Pathologist | | | | | At | Signature | + + + + + + | Glucose, | 97Comment: Testing | 65 - 99 mg/dL | [facility] | | | POC | performed at [facility];[address] | | LABORATORY | | | | [address];[place] | | | | | | [address] | | | | + + + + + + + + | Specimen | + + | | + + + + + + + | Performing | Address | City/State/Zipcode | Phone Number | | Organization | | | | + + + + + | [facility] | [address] | [place] [address] | [phone] | + + + + + POC Glucose (06/26/2019 11:45 AM PDT) + + + + + + | Component | Value | Ref Range | Performed | Pathologist | | | | | At | Signature | + + + + + + | Glucose, | 88Comment: Testing | 65 - 99 mg/dL | [facility] | | | POC | performed at [facility];[address] | | LABORATORY | | | | [address];[place] | | | | | | [address] | | | | + + + + + + + + | Specimen | + + | | + + + + + + + | Performing | Address | City/State/Zipcode | Phone Number | | Organization | | | | + + + + + | [facility] | [address] | [place] [address] | [phone] | + + + + + ECG 12 lead (06/26/2019 10:52 AM PDT) + + + + + + | Component | Value | Ref Range | Performed | Pathologist | | | | | At | Signature | + + + + + + | VENTRICULAR | 89 | BPM | [facility] | | | RATE EKG | | | | | + + + + + + | ATRIAL RATE | 89 | BPM | [facility] | | + + + + + + | P-R | 130 | ms | [facility] | | | INTERVAL | | | | | + + + + + + | QRS | 116 | ms | [facility] | | | DURATION | | | | | + + + + + + | Q-T | 394 | ms | [facility] | | | INTERVAL | | | | | + + + + + + | Q-T | 479 | ms | [facility] | | | INTERVAL | | | | | | (CORRECTED) | | | | | + + + + + + | P WAVE AXIS | 62 | degrees | [facility] | | + + + + + + | QRS AXIS | -65 | degrees | [facility] | | + + + + + + | T AXIS | 73 | degrees | [facility] | | + + + + + + | INTERPRETAT | Normal sinus rhythmRight | | [facility] | | | ION TEXT | bundle branch blockLeft | | | | | | anterior fascicular | | | | | | block Bifascicular | | | | | | block Prolonged Q-T | | | | | | intervalAbnormal ECGWhen | | | | | | compared with ECG of | | | | | | 08-MAY-2009 05:24,(RBBB | | | | | | and left anterior | | | | | | fascicular block) is now | | | | | | PresentConfirmed by | | | | | | Max Baxter MD ([id number]) | | | | | | on 06/26/2019 7:14:20 PM | | | | | | | | | | + + + + + + + + | Specimen | + + | | + + + + + | Narrative | Performed At | + + + | | | + + + + +---------+ + + | Performing | Address | City/State/Zipcode | Phone Number | | Organization | | | | + +---------+ + + | [facility] | | | | + +---------+ + + XR Chest AP Portable (06/26/2019 8:28 AM PDT) + + | Specimen | + + | | + + + + + | Narrative | Performed At | + + + | CHEST PORTABLE ONE VIEW CLINICAL INFORMATION: Diffuse | [facility] | | wheezing. COMPARISON: XR CHEST AP PORTABLE (06/23/2019); XR CHEST | | | AP PORTABLE (06/22/2019); X CHEST (06/22/2019); | | | FINDINGS/IMPRESSION: 1. EKG leads. 2. No opacities or effusions. 3. | | | Cardiomediastinal contours are stable. 4. No pneumothorax. 5. 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 Signed by: Clark | | | Jose Choe Date/Time: 06/26/2019 8:59 AM | | + + + + + | Procedure Note | + + | Kali, Rad Results In - 06/26/2019 9:03 AM PDT | | CHEST PORTABLE ONE VIEW | | | | CLINICAL INFORMATION: | | Diffuse wheezing. | | | | COMPARISON: | | XR CHEST AP PORTABLE (06/23/2019); XR CHEST AP PORTABLE (06/22/2019); X | | CHEST (06/22/2019); | | | | FINDINGS/IMPRESSION: | | 1. EKG leads. | | 2. No opacities or effusions. | | 3. Cardiomediastinal contours are stable. | | 4. No pneumothorax. | | 5. 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 | | | | | | | | | | | | Signed by: Daija Rodas Gregory | | Sign Date/Time: 06/26/2019 8:59 AM | + + + +---------+ + + | Performing | Address | City/State/Zipcode | Phone Number | | Organization | | | | + +---------+ + + | [facility] | | | | + +---------+ + + Procalcitonin (06/26/2019 4:23 AM PDT) + + + + + + | Component | Value | Ref Range | Performed | Pathologist | | | | | At | Signature | + + + + + + | PROCALCITON | 0.15Comment: | <0.5 ng/mL | [facility] | | | IN | INTERPRETIVE | | LABORATORY | | | | INFORMATION: | | | | | | PROCALCITONIN PCT <= | | | | | | 0.5 ng/mL: Low risk | | | | | | for progression to | | | | | | severe systemic | | | | | | bacterial infection | | | | | | (severe sepsis/septic | | | | | | shock). Does not | | | | | | exclude an infection, | | | | | | because localized | | | | | | infections may be | | | | | | associated with such low | | | | | | levels. If PCT is | | | | | | measured very early | | | | | | after bacterial | | | | | | challenge (usually <6 | | | | | | hours), results may | | | | | | still be low and | | | | | | should re-assess PCT | | | | | | 6-24 hours later. PCT | | | | | | >0.5 and <= 2 ng/mL: | | | | | | Moderate risk for | | | | | | progression to severe | | | | | | systemic infection | | | | | | (severe sepsis/septic | | | | | | shock). Other | | | | | | conditions are known | | | | | | to elevate PCT, patient | | | | | | should be closely | | | | | | monitored both | | | | | | clinically and by | | | | | | re-assessing PCT | | | | | | within 6-24 hours. PCT > | | | | | | 2 ng/mL: High | | | | | | likelihood for | | | | | | progression to severe | | | | | | systemic bacterial | | | | | | infection (severe | | | | | | sepsis/septic shock). | | | | | | PCT >= 10 ng/mL: | | | | | | High likelihood of | | | | | | severe sepsis or septic | | | | | | shock.Testing performed | | | | | | at [facility];[address] | | | | | [address];[place] [address] | | | | + + + + + + + + | Specimen | + + | Blood | + + + + + + + | Performing | Address | City/State/Zipcode | Phone Number | | Organization | | | | + + + + + | [facility] | [address] | [place] [address] | [phone] | + + + + + TSH, Reflex Free T4 (06/26/2019 4:03 AM PDT) + + + + + + | Component | Value | Ref Range | Performed | Pathologist | | | | | At | Signature | + + + + + + | TSH | 0.560Comment: Testing | 0.450 - 5.100 | [facility] | | | | performed at [facility], [address] | uIU/mL | LABORATORY | | | | [place] [place], | | | | | | [place] [address] | | | | + + + + + + + + | Specimen | + + | Blood | + + + + + + + | Performing | Address | City/State/Zipcode | Phone Number | | Organization | | | | + + + + + | [facility] | [address] | [place] [address] | [phone] | + + + + + Phosphorus (06/26/2019 4:03 AM PDT) + + + + + + | Component | Value | Ref Range | Performed | Pathologist | | | | | At | Signature | + + + + + + | Phosphorus | 2.7Comment: Testing | 2.3 - 4.8 mg/dL | [facility] | | | | performed at [facility], [address] | | LABORATORY | | | | [address], | | | | | | [place] [address] | | | | + + + + + + + + | Specimen | + + | Blood | + + + + + + + | Performing | Address | City/State/Zipcode | Phone Number | | Organization | | | | + + + + + | [facility] | [address] | [place] [address] | [phone] | + + + + + Magnesium (06/26/2019 4:03 AM PDT) + + + + + + | Component | Value | Ref Range | Performed | Pathologist | | | | | At | Signature | + + + + + + | Magnesium | 1.7Comment: Testing | 1.7 - 2.4 mg/dL | [facility] | | | | performed at [facility], [address] | | LABORATORY | | | | [place], | | | | | | [place] [address] | | | | + + + + + + + + | Specimen | + + | Blood | + + + + + + + | Performing | Address | City/State/Zipcode | Phone Number | | Organization | | | | + + + + + | [facility] | [address] | [place] [address] | [phone] | + + + + + CBC with Differential (06/26/2019 4:03 AM PDT) + + + + + + | Component | Value | Ref Range | Performed | Pathologist | | | | | At | Signature | + + + + + + | WBC | 7.36 | 3.80 - 11.00 | [facility] | | | | | K/uL | LABORATORY | | + + + + + + | RBC | 3.88 | 3.70 - 5.10 | [facility] | | | | | M/uL | LABORATORY | | + + + + + + | Hemoglobin | 12.3 | 11.3 - 15.5 | [facility] | | | | | g/dL | LABORATORY | | + + + + + + | Hematocrit | 35.5 | 34.0 - 46.0 % | [facility] | | | | | | LABORATORY | | + + + + + + | MCV | 91.6 | 80.0 - 100.0 fl | [facility] | | | | | | LABORATORY | | + + + + + + | MCH | 31.7 | 27.0 - 34.0 pg | [facility] | | | | | | LABORATORY | | + + + + + + | MCHC | 34.6 | 32.0 - 35.5 | [facility] | | | | | g/dL | LABORATORY | | + + + + + + | RDW-SD | 42.4 | 37 - 53 fl | [facility] | | | | | | LABORATORY | | + + + + + + | Platelet | 161 | 150 - 400 K/uL | [facility] | | | Count | | | LABORATORY | | + + + + + + | MPV | 8.2 | fl | [facility] | | | | | | LABORATORY | | + + + + + + | Diff Type | AUTOMATED | | [facility] | | | | | | LABORATORY | | + + + + + + | % | 75.80 | % | [facility] | | | Neutrophils | | | LABORATORY | | + + + + + + | % | 17.18 | % | [facility] | | | Lymphocytes | | | LABORATORY | | + + + + + + | Monocyte % | 4.52 | % | [facility] | | | | | | LABORATORY | | + + + + + + | Eosinophils | 1.61 | % | [facility] | | | % | | | LABORATORY | | + + + + + + | Basophils % | 0.89 | % | [facility] | | | | | | LABORATORY | | + + + + + + | Neutrophils | 5.58 | 1.90 - 7.40 | [facility] | | | , Absolute | | K/uL | LABORATORY | | + + + + + + | Absolute | 1.26 | 1.00 - 3.90 | [facility] | | | Lymphocytes | | K/uL | LABORATORY | | + + + + + + | Absolute | 0.33 | 0.00 - 0.80 | [facility] | | | Monocytes | | K/uL | LABORATORY | | + + + + + + | Eosinophils | 0.12 | 0.00 - 0.50 | [facility] | | | , Absolute | | K/uL | LABORATORY | | + + + + + + | Basophils, | 0.07Comment: Testing | 0.00 - 0.10 | [facility] | | | Absolute | performed at [facility], [address] | K/uL | LABORATORY | | | | [address], | | | | | | [place] [address] | | | | + + + + + + + + | Specimen | + + | Blood | + + + + + + + | Performing | Address | City/State/Zipcode | Phone Number | | Organization | | | | + + + + + | [facility] | [address] | [place] [address] | [phone] | + + + + + Basic Metabolic Panel (06/26/2019 4:03 AM PDT) + + + + + + | Component | Value | Ref Range | Performed | Pathologist | | | | | At | Signature | + + + + + + | Na | 139 | 135 - 145 | [facility] | | | | | mmol/L | LABORATORY | | + + + + + + | K | 3.5 | 3.5 - 4.9 | [facility] | | | | | mmol/L | LABORATORY | | + + + + + + | Cl | 109 | 99 - 109 mmol/L | [facility] | | | | | | LABORATORY | | + + + + + + | CO2 | 21 (L) | 23 - 32 mmol/L | [facility] | | | | | | LABORATORY | | + + + + + + | Anion Gap | 13 | 5 - 20 mmol/L | [facility] | | | | | | LABORATORY | | + + + + + + | Glucose | 76 | 65 - 99 mg/dL | [facility] | | | | | | LABORATORY | | + + + + + + | BUN | 9 | 8 - 25 mg/dL | [facility] | | | | | | LABORATORY | | + + + + + + | Creatinine | 0.5 | 0.50 - 1.00 | [facility] | | | | | mg/dL | LABORATORY | | + + + + + + | BUN/Creatin | 18 | | [facility] | | | ine Ratio | | | LABORATORY | | + + + + + + | Calcium | 8.1 (L) | 8.5 - 10.5 | [facility] | | | | | mg/dL | LABORATORY | | + + + + + + | Estimated | >60Comment: GFR <60: | >60 | [facility] | | | GFR | CHRONIC KIDNEY DISEASE, | mL/min/1.73m2 | LABORATORY | | | | IF FOUND OVER A 3 MONTH | | | | | | PERIOD.GFR <15: KIDNEY | | | | | | FAILURE.FOR | | | | | | AMERICANS, MULTIPLY THE | | | | | | CALCULATED GFR BY | | | | | | 1.210.This eGFR is | | | | | | calculated using the | | | | | | MDRD IDMS traceable | | | | | | equation.Testing | | | | | | performed at [facility], [address] | | | | | | [facility], | | | | | | [place] [address] | | | | + + + + + + + + | Specimen | + + | Blood | + + + + + + + | Performing | Address | City/State/Zipcode | Phone Number | | Organization | | | | + + + + + | [facility] | [address] | [place] [address] | [phone] | + + + + + Cortisol, AM (06/26/2019 4:03 AM PDT) + + + + + + | Component | Value | Ref Range | Performed | Pathologist | | | | | At | Signature | + + + + + + | Cortisol AM | 19.9Comment: Testing | 4.3 - 22.4 | [facility] | | | | performed at [facility], [address] | ug/dL | LABORATORY | | | | [address], | | | | | | [place] [address] | | | | + + + + + + + + | Specimen | + + | Blood | + + + + + + + | Performing | Address | City/State/Zipcode | Phone Number | | Organization | | | | + + + + + | [facility] | [address] | [place] [address] | [phone] | + + + + + POC Glucose (06/25/2019 8:57 PM PDT) + + + + + + | Component | Value | Ref Range | Performed | Pathologist | | | | | At | Signature | + + + + + + | Glucose, | 72Comment: Testing | 65 - 99 mg/dL | [facility] | | | POC | performed at [facility] | LABORATORY | | | | [address];[place] | | | | | | [address] | | | | + + + + + + + + | Specimen | + + | | + + + + + + + | Performing | Address | City/State/Zipcode | Phone Number | | Organization | | | | + + + + + | [facility] | [address] | [place] [address] | [phone] | + + + + + POC Glucose (06/25/2019 6:18 PM PDT) + + + + + + | Component | Value | Ref Range | Performed | Pathologist | | | | | At | Signature | + + + + + + | Glucose, | 82Comment: Testing | 65 - 99 mg/dL | [facility] | | | POC | performed at [facility] | | LABORATORY | | | | [address];[place] | | | | | | [address] | | | | + + + + + + + + | Specimen | + + | | + + + + + + + | Performing | Address | City/State/Zipcode | Phone Number | | Organization | | | | + + + + + | [facility] [facility] | [address] | [place] [address] | [phone] | + + + + + CT Head wo Contrast (06/25/2019 1:50 PM PDT) + + | Specimen | + + | | + + + + + | Impressions | Performed At | + + + | 1. No acute intracranial findings. 2. Severe left maxillary sinus | [facility] | | opacification. Signed by: Daija John Steven Sign | | | Date/Time: 06/25/2019 3:33 PM | | + + + + + + | Narrative | Performed At | + + + | CT HEAD WITHOUT CONTRAST CLINICAL INFORMATION: 53-year-old | [facility] | | with nontraumatic seizure. COMPARISON: CT head 06/22/2019. | | | PROCEDURE: Axial images were obtained through the head without IV | | | contrast. Multiplanar reformations were obtained from the acquisition | | | data. At least one of the following CT dose optimization | | | techniques were used: Automated exposure control; Adjustment of mA | | | and/or kV according to patient size; Use of iterative reconstruction | | | technique. FINDINGS: Brain: No intracranial hemorrhage is | | | present. No mass is evident. Calero-white differentiation appears | | | intact. No CT evidence of acute infarct is evident. Ventricles | | | and extra-axial fluid spaces: Ventricles are stable in size. | | | Paranasal sinuses and mastoid air cells: Severe left maxillary sinus | | | opacification is noted, partially imaged previously. Mild mucosal | | | thickening is present in the right maxillary sinus. Concavity of the | | | left lamina papyracea is again noted. Mastoids remain clear. | | | Calvarium and extracranial soft tissues: Stable. Orbits: Left | | | cataract surgery. | | + + + + + | Procedure Note | + + | Kali, Rad Results In - 06/25/2019 3:36 PM PDT | | CT HEAD WITHOUT CONTRAST | | | | CLINICAL INFORMATION: | | 53-year-old with nontraumatic seizure. | | | | COMPARISON: | | CT head 06/22/2019. | | | | PROCEDURE: | | Axial images were obtained through the head without IV contrast. | | Multiplanar reformations were obtained from the acquisition data. | | | | At least one of the following CT dose optimization techniques were | | used: Automated exposure control; Adjustment of mA and/or kV according | | to patient size; Use of iterative reconstruction technique. | | | | FINDINGS: | | Brain: No intracranial hemorrhage is present. No mass is evident. | | Calero-white differentiation appears intact. No CT evidence of acute | | infarct is evident. | | | | Ventricles and extra-axial fluid spaces: Ventricles are stable in size. | | | | Paranasal sinuses and mastoid air cells: Severe left maxillary sinus | | opacification is noted, partially imaged previously. Mild mucosal | | thickening is present in the right maxillary sinus. Concavity of the | | left lamina papyracea is again noted. Mastoids remain clear. | | | | Calvarium and extracranial soft tissues: Stable. | | | | Orbits: Left cataract surgery. | | | | IMPRESSION: | | 1. No acute intracranial findings. | | 2. Severe left maxillary sinus opacification. | | | | | | | | | | | | Signed by: Daija John Steven | | Sign Date/Time: 06/25/2019 3:33 PM | + + + +---------+ + + | Performing | Address | City/State/Zipcode | Phone Number | | Organization | | | | + +---------+ + + | [facility] | | | | + +---------+ + + POC Glucose (06/25/2019 11:28 AM PDT) + + + + + + | Component | Value | Ref Range | Performed | Pathologist | | | | | At | Signature | + + + + + + | Glucose, | 73Comment: Testing | 65 - 99 mg/dL | [facility] | | | POC | performed at [facility] | | LAB[facility]ATORY | | | | [address];[place], [place] | | | | | | [address] | | | | + + + + + + + + | Specimen | + + | | + + + + + + + | Performing | Address | City/State/Zipcode | Phone Number | | Organization | | | | + + + + + | [facility] | [address] | [place] [address] | [phone] | + + + + + Potassium (06/25/2019 11:26 AM PDT) + + + + + + | Component | Value | Ref Range | Performed | Pathologist | | | | | At | Signature | + + + + + + | K | 4.1Comment: Testing | 3.5 - 4.9 | [facility] | | | | performed at [facility] | mmol/L | LABORATORY | | | | [address];[place] | | | | | | [address] | | | | + + + + + + + + | Specimen | + + | Blood | + + + + + + + | Performing | Address | City/State/Zipcode | Phone Number | | Organization | | | | + + + + + | [facility] | [address] | [place] [address] | [phone] | + + + + + ECHO Complete (06/25/2019 10:25 AM PDT) + +---------+ + + + | Component | Value | Ref Range | Performed | Pathologist | | | | | At | Signature | + +---------+ + + + | LVEF-TTE | 60 | % | [facility] | | | TRANSTHORAC | | | | | | IC ECHO | | | | | + +---------+ + + + | BASELINE | 87/53 | mmHg | [facility] | | | BLOOD | | | | | | PRESSURE | | | | | + +---------+ + + + | Patient | 115 lbs | | [facility] | | | Weight | | | | | | (lbs) | | | | | + +---------+ + + + | Patient | 64 " | | [facility] | | | Height | | | | | + +---------+ + + + | Inferior | 0.8 | cm | [facility] | | | Vena Cava | | | | | | Diameter at | | | | | | | | | | | | Inspiration | | | | | + +---------+ + + + | Inferior | 1.9 | cm | [facility] | | | Vena Cava | | | | | | Diameter at | | | | | | Expiration | | | | | + +---------+ + + + | RA PRESSURE | 3 | mmHg | [facility] | | + +---------+ + + + | LVIDd | 4.09 | cm | [facility] | | + +---------+ + + + | FS | 21 | % | [facility] | | + +---------+ + + + | LA volume | 22.55 | mL | [facility] | | + +---------+ + + + | Ascending | 3.11 | cm | [facility] | | | aorta | | | | | + +---------+ + + + | AV mean | 4.52 | mmHg | [facility] | | | gradient | | | | | + +---------+ + + + | Aortic | 2.53 | cm2 | [facility] | | | Valve Area | | | | | | by | | | | | | Continuity | | | | | | VTI | | | | | + +---------+ + + + | MV Area by | 5.34 | cm2 | [facility] | | | P 1/2 | | | | | | method | | | | | + +---------+ + + + | PV peak | 2.27 | mmHg | [facility] | | | gradient | | | | | + +---------+ + + + | Pulm vein | 89.97 | msec | [facility] | | | "A" wave | | | | | + +---------+ + + + | Pulm vein | 32.38 | | [facility] | | | S/D ratio | | | | | + +---------+ + + + | LVOT | 1.98 | cm | [facility] | | | diameter | | | | | + +---------+ + + + | LVOT peak | 114.63 | cm/s | [facility] | | | rin | | | | | + +---------+ + + + | LVOT peak | 22.71 | cm | [facility] | | | VTI | | | | | + +---------+ + + + | AV peak rin | 145.49 | cm/s | [facility] | | + +---------+ + + + | AV VTI | 27.64 | cm | [facility] | | + +---------+ + + + | AV peak | 8.47 | mmHg | [facility] | | | gradient | | | | | + +---------+ + + + | TV peak | 0.53 | mmHg | [facility] | | | gradient | | | | | + +---------+ + + + | PV mean | 1.51 | mmHg | [facility] | | | gradient | | | | | + +---------+ + + + | MV Pressure | 41.19 | msec | [facility] | | | 1/2 time | | | | | + +---------+ + + + | Pulm Vein | 42.33 | cm/s | [facility] | | | Peak S Rin | | | | | + +---------+ + + + | Pulm Vein | 46.11 | cm/s | [facility] | | | Peak D Rin | | | | | + +---------+ + + + | LA Volume | 15 | mL/m2 | [facility] | | | Index | | | | | + +---------+ + + + | AV LVOT | 5.26 | mmHg | [facility] | | | Peak | | | | | | Gradient | | | | | + +---------+ + + + | AV LVOT | 3.27 | mmHg | [facility] | | | Mean | | | | | | Gradient | | | | | + +---------+ + + + | TR Peak | 16 | mmHg | [facility] | | | Gradient | | | | | + +---------+ + + + | RV Free | 14.51 | cm/s | [facility] | | | Wall Peak | | | | | | S' | | | | | + +---------+ + + + | TR Velocity | 200.15 | cm | [facility] | | + +---------+ + + + | PI Peak | 75.37 | cm/s | [facility] | | | Velocity | | | | | + +---------+ + + + | LV | 7.63 | cm | [facility] | | | Diastolic | | | | | | Length 4C | | | | | + +---------+ + + + | RV | 2.87 | cm | [facility] | | | Diastolic | | | | | | Basal | | | | | | Diameter | | | | | + +---------+ + + + | LV | 56 | % | [facility] | | | Denise's | | | | | | Biplane EF | | | | | + +---------+ + + + | LV ED | 69.4 | ml | [facility] | | | Volume | | | | | | (Denise's) | | | | | + +---------+ + + + | LV ED | 45 | ml/m2 | [facility] | | | Volume | | | | | | Index | | | | | + +---------+ + + + | LV ES | 30.78 | ml | [facility] | | | Volume | | | | | + +---------+ + + + | LVOT Mean | 88.68 | cm/s | [facility] | | | Velocity | | | | | + +---------+ + + + | RVSP | 19 | mmHg | [facility] | | | Estimated | | | | | + +---------+ + + + | MV | 141.21 | msec | [facility] | | | Deceleratio | | | | | | n Time | | | | | + +---------+ + + + | MV E/A | 1.15 | | [facility] | | | Ratio | | | | | + +---------+ + + + | MV Peak | 79 | cm/s | [facility] | | | A-Wave | | | | | + +---------+ + + + | MV Peak | 91.07 | cm/s | [facility] | | | E-Wave | | | | | + +---------+ + + + | TV | 98.34 | msec | [facility] | | | Deceleratio | | | | | | n Time | | | | | + +---------+ + + + | TV Peak | 59.69 | cm/s | [facility] | | | A-Wave | | | | | + +---------+ + + + | TV Peak | 36.3 | cm/s | [facility] | | | E-Wave | | | | | + +---------+ + + + | PV Mean | 60 | cm/s | [facility] | | | Velocity | | | | | + +---------+ + + + | AV Mean | 98.61 | cm/s | [facility] | | | Velocity | | | | | + +---------+ + + + | RA Area | 8 | cm2 | [facility] | | + +---------+ + + + | LA/Aorta | 0.98 | | [facility] | | | Ratio | | | | | + +---------+ + + + | LA Area | 9.42 | cm2 | [facility] | | + +---------+ + + + | LA Major | 0.2764 | cm | [facility] | | + +---------+ + + + | LV ES | 20 | ml/m2 | [facility] | | | Volume | | | | | | Index | | | | | + +---------+ + + + | Cardiac | 6.29 | l/min | [facility] | | | Output | | | | | + +---------+ + + + | Cardiac | 4.06 | l/min/m2 | [facility] | | | Index | | | | | + +---------+ + + + | Heart Rate | 88 | | [facility] | | + +---------+ + + + | Aortic Root | 2.93 | cm | [facility] | | | Diameter | | | | | + +---------+ + + + | IVS | 0.98 | cm | [facility] | | | Diastolic | | | | | | Thickness | | | | | | MM | | | | | + +---------+ + + + | LVPW | 0.78 | cm | [facility] | | | Diastolic | | | | | | Thickness | | | | | | MM | | | | | + +---------+ + + + | IVS | 1.12 | cm | [facility] | | | Systolic | | | | | | Thickness | | | | | | MM | | | | | + +---------+ + + + | LV Systolic | 3.22 | cm | [facility] | | | Diameter | | | | | | MM | | | | | + +---------+ + + + | LVPW | 1.39 | cm | [facility] | | | Systolic | | | | | | Thickness | | | | | | MM | | | | | + +---------+ + + + | AV Cusp | 2.15 | cm | [facility] | | | Seperation | | | | | | MM | | | | | + +---------+ + + + | LA Systolic | 2.86 | cm | [facility] | | | Diameter | | | | | | MM | | | | | + +---------+ + + + | TAPSE | 1.97 | cm | [facility] | | + +---------+ + + + + + | Specimen | + + | | + + + + + | Narrative | Performed At | + + + | Normal Echo | [facility] | | | | + + + + +---------+ + + | Performing | Address | City/State/Zipcode | Phone Number | | Organization | | | | + +---------+ + + | [facility] | | | | + +---------+ + + POC Glucose (06/25/2019 8:36 AM PDT) + + + + + + | Component | Value | Ref Range | Performed | Pathologist | | | | | At | Signature | + + + + + + | Glucose, | 80Comment: Testing | 65 - 99 mg/dL | [facility] | | | POC | performed at [facility] | | LAB[facility]ATORY | | | | [address];[place], [place] | | | | | | [address] | | | | + + + + + + + + | Specimen | + + | | + + + + + + + | Performing | Address | City/State/Zipcode | Phone Number | | Organization | | | | + + + + + | [facility] | [address] | [place] [address] | [phone] | + + + + + Phosphorus (06/25/2019 3:10 AM PDT) + + + + + + | Component | Value | Ref Range | Performed | Pathologist | | | | | At | Signature | + + + + + + | Phosphorus | 2.5Comment: Testing | 2.3 - 4.8 mg/dL | [facility] | | | | performed at [facility] | | LABORATORY | | | | [address];[place] | | | | | | [address] | | | | + + + + + + + + | Specimen | + + | Blood | + + + + + + + | Performing | Address | City/State/Zipcode | Phone Number | | Organization | | | | + + + + + | [facility] | [address] | [place] [address] | [phone] | + + + + + Magnesium (06/25/2019 3:10 AM PDT) + + + + + + | Component | Value | Ref Range | Performed | Pathologist | | | | | At | Signature | + + + + + + | Magnesium | 2.1Comment: Testing | 1.7 - 2.4 mg/dL | [facility] | | | | performed at [facility] | | LABORATORY | | | | [address];[place] | | | | | | [address] | | | | + + + + + + + + | Specimen | + + | Blood | + + + + + + + | Performing | Address | City/State/Zipcode | Phone Number | | Organization | | | | + + + + + | [facility] | [address] | [place] [address] | [phone] | + + + + + CBC with Differential (06/25/2019 3:10 AM PDT) + + + + + + | Component | Value | Ref Range | Performed | Pathologist | | | | | At | Signature | + + + + + + | WBC | 9.12 | 3.80 - 11.00 | [facility] | | | | | K/uL | LABORATORY | | + + + + + + | RBC | 4.26 | 3.70 - 5.10 | [facility] | | | | | M/uL | LABORATORY | | + + + + + + | Hemoglobin | 13.1 | 11.3 - 15.5 | [facility] | | | | | g/dL | LABORATORY | | + + + + + + | Hematocrit | 38.8 | 34.0 - 46.0 % | [facility] | | | | | | LABORATORY | | + + + + + + | MCV | 91.1 | 80.0 - 100.0 fl | [facility] | | | | | | LABORATORY | | + + + + + + | MCH | 30.7 | 27.0 - 34.0 pg | [facility] | | | | | | LABORATORY | | + + + + + + | MCHC | 33.7 | 32.0 - 35.5 | [facility] | | | | | g/dL | LABORATORY | | + + + + + + | RDW-SD | 43.8 | 37 - 53 fl | [facility] | | | | | | LABORATORY | | + + + + + + | Platelet | 194 | 150 - 400 K/uL | [facility] | | | Count | | | LABORATORY | | + + + + + + | MPV | 7.6 | fl | [facility] | | | | | | LABORATORY | | + + + + + + | Diff Type | AUTOMATED | | [facility] | | | | | | LABORATORY | | + + + + + + | % | 66.38 | % | [facility] | | | Neutrophils | | | LABORATORY | | + + + + + + | % | 23.64 | % | [facility] | | | Lymphocytes | | | LABORATORY | | + + + + + + | Monocyte % | 8.42 | % | [facility] | | | | | | LABORATORY | | + + + + + + | Eosinophils | 0.88 | % | [facility] | | | % | | | LABORATORY | | + + + + + + | Basophils % | 0.68 | % | [facility] | | | | | | LABORATORY | | + + + + + + | Neutrophils | 6.05 | 1.90 - 7.40 | [facility] | | | , Absolute | | K/uL | LABORATORY | | + + + + + + | Absolute | 2.16 | 1.00 - 3.90 | [facility] | | | Lymphocytes | | K/uL | LABORATORY | | + + + + + + | Absolute | 0.77 | 0.00 - 0.80 | [facility] | | | Monocytes | | K/uL | LABORATORY | | + + + + + + | Eosinophils | 0.08 | 0.00 - 0.50 | [facility] | | | , Absolute | | K/uL | LABORATORY | | + + + + + + | Basophils, | 0.06Comment: Testing | 0.00 - 0.10 | [facility] | | | Absolute | performed at [facility] | K/uL | LABORATORY | | | | [address];[place], [place] | | | | | | [address] | | | | + + + + + + + + | Specimen | + + | Blood | + + + + + + + | Performing | Address | City/State/Zipcode | Phone Number | | Organization | | | | + + + + + | [facility] | [address] | [place] [address] | [phone] | + + + + + Basic Metabolic Panel (06/25/2019 3:10 AM PDT) + + + + + + | Component | Value | Ref Range | Performed | Pathologist | | | | | At | Signature | + + + + + + | Na | 141 | 135 - 145 | [facility] | | | | | mmol/L | LABORATORY | | + + + + + + | K | 3.6 | 3.5 - 4.9 | [facility] | | | | | mmol/L | LABORATORY | | + + + + + + | Cl | 105 | 99 - 109 mmol/L | [facility] | | | | | | LABORATORY | | + + + + + + | CO2 | 29 | 23 - 32 mmol/L | [facility] | | | | | | LABORATORY | | + + + + + + | Anion Gap | 11 | 5 - 20 mmol/L | [facility] | | | | | | LABORATORY | | + + + + + + | Glucose | 104 (H) | 65 - 99 mg/dL | [facility] | | | | | | LABORATORY | | + + + + + + | BUN | <5 (L) | 8 - 25 mg/dL | [facility] | | | | | | LABORATORY | | + + + + + + | Creatinine | 0.52 | 0.50 - 1.00 | [facility] | | | | | mg/dL | LABORATORY | | + + + + + + | BUN/Creatin | UNABLE TO CALCULATE | | [facility] | | | ine Ratio | | | LABORATORY | | + + + + + + | Calcium | 8.2 (L) | 8.5 - 10.5 | [facility] | | | | | mg/dL | LABORATORY | | + + + + + + | Estimated | >60Comment: GFR <60: | >60 | [facility] | | | GFR | CHRONIC KIDNEY DISEASE, | mL/min/1.73m2 | LABORATORY | | | | IF FOUND OVER A 3 MONTH | | | | | | PERIOD.GFR <15: KIDNEY | | | | | | FAILURE.FOR | | | | | | AMERICANS, MULTIPLY THE | | | | | | CALCULATED GFR BY | | | | | | 1.210.This eGFR is | | | | | | calculated using the | | | | | | MDRD IDMS traceable | | | | | | equation.Testing | | | | | | performed at [facility] | | | | | | [address];[place] | | | | | | [address] | | | | + + + + + + + + | Specimen | + + | Blood | + + + + + + + | Performing | Address | City/State/Zipcode | Phone Number | | Organization | | | | + + + + + | [facility] | [address] | [place] [address] | [phone] | + + + + + Potassium (06/24/2019 8:19 PM PDT) + + + + + + | Component | Value | Ref Range | Performed | Pathologist | | | | | At | Signature | + + + + + + | K | 3.6Comment: Testing | 3.5 - 4.9 | [facility] | | | | performed at [facility] | mmol/L | LABORATORY | | | | [address];[place] | | | | | | [address] | | | | + + + + + + + + | Specimen | + + | Blood | + + + + + + + | Performing | Address | City/State/Zipcode | Phone Number | | Organization | | | | + + + + + | [facility] | [address] | [place] [address] | [phone] | + + + + + Phosphorus (06/24/2019 8:19 PM PDT) + + + + + + | Component | Value | Ref Range | Performed | Pathologist | | | | | At | Signature | + + + + + + | Phosphorus | 2.5Comment: Testing | 2.3 - 4.8 mg/dL | [facility] | | | | performed at [facility] | | LABORATORY | | | | [address];[place] | | | | | | [address] | | | | + + + + + + + + | Specimen | + + | Blood | + + + + + + + | Performing | Address | City/State/Zipcode | Phone Number | | Organization | | | | + + + + + | [facility] | [address] | [place] [address] | [phone] | + + + + + Magnesium (06/24/2019 8:19 PM PDT) + + + + + + | Component | Value | Ref Range | Performed | Pathologist | | | | | At | Signature | + + + + + + | Magnesium | 1.7Comment: Testing | 1.7 - 2.4 mg/dL | [facility] | | | | performed at [facility] | | LABORATORY | | | | [address];[place], [place] | | | | | | [address] | | | | + + + + + + + + | Specimen | + + | Blood | + + + + + + + | Performing | Address | City/State/Zipcode | Phone Number | | Organization | | | | + + + + + | [facility] | [address] | [place] [address] | [phone] | + + + + + POC Glucose (06/24/2019 8:08 PM PDT) + + + + + + | Component | Value | Ref Range | Performed | Pathologist | | | | | At | Signature | + + + + + + | Glucose, | 86Comment: Testing | 65 - 99 mg/dL | [facility] | | | POC | performed at [facility] | | LABORATORY | | | | [address];[place], [place] | | | | | | [address] | | | | + + + + + + + + | Specimen | + + | | + + + + + + + | Performing | Address | City/State/Zipcode | Phone Number | | Organization | | | | + + + + + | [facility] | [address] | [place] [address] | [phone] | + + + + + POC Glucose (06/24/2019 6:13 PM PDT) + + + + + + | Component | Value | Ref Range | Performed | Pathologist | | | | | At | Signature | + + + + + + | Glucose, | 103 (H)Comment: Testing | 65 - 99 mg/dL | [facility] | | | POC | performed at [facility] | | LABORATORY | | | [address];[place] | | | | | | [address] | | | | + + + + + + + + | Specimen | + + | | + + + + + + + | Performing | Address | City/State/Zipcode | Phone Number | | Organization | | | | + + + + + | [facility] | [address] | [place] [address] | [phone] | + + + + + EEG-Continuous Monitoring (06/24/2019 1:33 PM PDT) + + + | Narrative | Performed At | + + + | Bryan Celis MD 06/24/2019 13:49 Continuous EEG | | | Procedure Note Referring Physician: Cary Chapa | | | Physician: Bryan Celis Recording Times: From 3:17AM on | | | 06/23/19 to 11:04AM on 06/24/19. History: 53F with history of | | | PTSD, alcohol abuse, Hep C presenting with status epilepticus. | | | Medications: Scheduled Meds: | | | chlorhexidine 15 mL Mouth/Throat BID | | | enoxaparin 40 mg Subcutaneous Daily | | | famotidine (PEPCID) IVPB 20 mg Intravenous 2 times per day | | | [START ON 06/25/2019] folic acid 1 mg Oral Daily | | | fosphenytoin 100 mg PE Intravenous Q8H | | | insulin lispro 0-6 Units Subcutaneous 4x Daily WC and HS | | | levETIRAcetam 500 mg Intravenous 2 times per day | | | potassium phosphate IVPB 30 mmol Intravenous Once | | | thiamine 100 mg Oral Daily Continuous Infusions: | | | dextrose 10% | | | norepinephrine 3 mcg/min (06/24/19 1314) | | | phenylephrine Stopped (06/23/19 2145) | | | propofol infusion 35 mcg/kg/min (06/24/19 8022) PRN | | | Meds:.acetaminophen, albuterol-ipratropium, Hypoglycemia Management | | | AND POCT Glucose AND dextrose AND dextrose 10%, | | | LORazepam, LORazepam, Magnesium replacement - ICU AND magnesium | | | sulfate AND magnesium sulfate, Potassium replacement - ICU | | | AND potassium chloride AND potassium chloride AND | | | potassium chloride IVPB (other volumes & diluents) AND potassium | | | chloride IVPB (other volumes & diluents) AND potassium chloride | | | IVPB (other volumes & diluents), Phosphate Replacement - ICU | | | AND sodium phosphate IVPB AND sodium phosphate IVPB EEG | | | Technique: Digital continuous video EEG was performed at the | | | bedside using the standard 10-20 system of electrode placement along | | | with a single EKG channel. EEG Findings: During maximal | | | wakefulness, background activity was comprised of admixed 4-7 hz | | | waveforms. A posterior dominant rhythm was not present. Diffuse | | | beta activity was observed. No electrographic seizures or events | | | were noted. Sharply contoured waveforms occasionally phase reversing | | | at F4/F8, and rarely at F3 were noted, at times epileptiform in | | | appearance. Intermittent, subtle right frontotemporal background | | | slowing was also observed. Impression: Continuous slow, | | | generalized Intermittent right frontotemporal slowing. Occasional | | | right frontotemporal and rare left frontal epileptiform discharges. | | | Interpretation: This is an abnormal continuous EEG | | | representing a noxg-ab-psojffbv encephalopathy. Diffuse beta | | | activity is nonspecific but can be seen with recent benzodiazepine | | | administration. The presence of epileptiform discharges is | | | suggestive of cortical hyperexcitability, and an increased | | | propensity for seizures. Focal slowing could indicate a structural | | | or functional abnormality in the underlying brain. Common causes | | | include tumor, infection, stroke or trauma. This can also be seen in | | | the immediate post-ictal period. Clinical and/ or radiological | | | correlation is suggested if indicated. Bryan Celis MD | | | [facility] Clinical Neurophysiologist | | + + + EEG-Continuous Monitoring (06/24/2019 1:33 PM PDT) + + + | Narrative | Performed At | + + + | Bryan Celis MD 06/24/2019 13:49 Continuous EEG | | | Procedure Note Referring Physician: Cary Chapa | | | Physician: Bryan Celis Recording Times: From 3:17AM on | | | 06/23/19 to 11:04AM on 06/24/19. History: 53F with history of | | | PTSD, alcohol abuse, Hep C presenting with status epilepticus. | | | Medications: Scheduled Meds: | | | chlorhexidine 15 mL Mouth/Throat BID | | | enoxaparin 40 mg Subcutaneous Daily | | | famotidine (PEPCID) IVPB 20 mg Intravenous 2 times per day | | | [START ON 06/25/2019] folic acid 1 mg Oral Daily | | | fosphenytoin 100 mg PE Intravenous Q8H | | | insulin lispro 0-6 Units Subcutaneous 4x Daily WC and HS | | | levETIRAcetam 500 mg Intravenous 2 times per day | | | potassium phosphate IVPB 30 mmol Intravenous Once | | | thiamine 100 mg Oral Daily Continuous Infusions: | | | dextrose 10% | | | norepinephrine 3 mcg/min (06/24/19 1314) | | | phenylephrine Stopped (06/23/19 6115) | | | propofol infusion 35 mcg/kg/min (06/24/19 5762) PRN | | | Meds:.acetaminophen, albuterol-ipratropium, Hypoglycemia Management | | | AND POCT Glucose AND dextrose AND dextrose 10%, | | | LORazepam, LORazepam, Magnesium replacement - ICU AND magnesium | | | sulfate AND magnesium sulfate, Potassium replacement - ICU | | | AND potassium chloride AND potassium chloride AND | | | potassium chloride IVPB (other volumes & diluents) AND potassium | | | chloride IVPB (other volumes & diluents) AND potassium chloride | | | IVPB (other volumes & diluents), Phosphate Replacement - ICU | | | AND sodium phosphate IVPB AND sodium phosphate IVPB EEG | | | Technique: Digital continuous video EEG was performed at the | | | bedside using the standard 10-20 system of electrode placement along | | | with a single EKG channel. EEG Findings: During maximal | | | wakefulness, background activity was comprised of admixed 4-7 hz | | | waveforms. A posterior dominant rhythm was not present. Diffuse | | | beta activity was observed. No electrographic seizures or events | | | were noted. Sharply contoured waveforms occasionally phase reversing | | | at F4/F8, and rarely at F3 were noted, at times epileptiform in | | | appearance. Intermittent, subtle right frontotemporal background | | | slowing was also observed. Impression: Continuous slow, | | | generalized Intermittent right frontotemporal slowing. Occasional | | | right frontotemporal and rare left frontal epileptiform discharges. | | | Interpretation: This is an abnormal continuous EEG | | | representing a ztav-ql-cdzsymoc encephalopathy. Diffuse beta | | | activity is nonspecific but can be seen with recent benzodiazepine | | | administration. The presence of epileptiform discharges is | | | suggestive of cortical hyperexcitability, and an increased | | | propensity for seizures. Focal slowing could indicate a structural | | | or functional abnormality in the underlying brain. Common causes | | | include tumor, infection, stroke or trauma. This can also be seen in | | | the immediate post-ictal period. Clinical and/ or radiological | | | correlation is suggested if indicated. Bryan Celis MD | | | [facility] Clinical Neurophysiologist | | + + + EEG-Continuous Monitoring (06/24/2019 1:33 PM PDT) + + + | Narrative | Performed At | + + + | Bryan Celis MD 06/24/2019 13:49 Continuous EEG | | | Procedure Note Referring Physician: Cary Chapa | | | Physician: Bryan Celis Recording Times: From 3:17AM on | | | 06/23/19 to 11:04AM on 06/24/19. History: 53F with history of | | | PTSD, alcohol abuse, Hep C presenting with status epilepticus. | | | Medications: Scheduled Meds: | | | chlorhexidine 15 mL Mouth/Throat BID | | | enoxaparin 40 mg Subcutaneous Daily | | | famotidine (PEPCID) IVPB 20 mg Intravenous 2 times per day | | | [START ON 06/25/2019] folic acid 1 mg Oral Daily | | | fosphenytoin 100 mg PE Intravenous Q8H | | | insulin lispro 0-6 Units Subcutaneous 4x Daily WC and HS | | | levETIRAcetam 500 mg Intravenous 2 times per day | | | potassium phosphate IVPB 30 mmol Intravenous Once | | | thiamine 100 mg Oral Daily Continuous Infusions: | | | dextrose 10% | | | norepinephrine 3 mcg/min (06/24/19 5339) | | | phenylephrine Stopped (06/23/19 4644) | | | propofol infusion 35 mcg/kg/min (06/24/19 0442) PRN | | | Meds:.acetaminophen, albuterol-ipratropium, Hypoglycemia Management | | | AND POCT Glucose AND dextrose AND dextrose 10%, | | | LORazepam, LORazepam, Magnesium replacement - ICU AND magnesium | | | sulfate AND magnesium sulfate, Potassium replacement - ICU | | | AND potassium chloride AND potassium chloride AND | | | potassium chloride IVPB (other volumes & diluents) AND potassium | | | chloride IVPB (other volumes & diluents) AND potassium chloride | | | IVPB (other volumes & diluents), Phosphate Replacement - ICU | | | AND sodium phosphate IVPB AND sodium phosphate IVPB EEG | | | Technique: Digital continuous video EEG was performed at the | | | bedside using the standard 10-20 system of electrode placement along | | | with a single EKG channel. EEG Findings: During maximal | | | wakefulness, background activity was comprised of admixed 4-7 hz | | | waveforms. A posterior dominant rhythm was not present. Diffuse | | | beta activity was observed. No electrographic seizures or events | | | were noted. Sharply contoured waveforms occasionally phase reversing | | | at F4/F8, and rarely at F3 were noted, at times epileptiform in | | | appearance. Intermittent, subtle right frontotemporal background | | | slowing was also observed. Impression: Continuous slow, | | | generalized Intermittent right frontotemporal slowing. Occasional | | | right frontotemporal and rare left frontal epileptiform discharges. | | | Interpretation: This is an abnormal continuous EEG | | | representing a edil-xz-fqtrokrm encephalopathy. Diffuse beta | | | activity is nonspecific but can be seen with recent benzodiazepine | | | administration. The presence of epileptiform discharges is | | | suggestive of cortical hyperexcitability, and an increased | | | propensity for seizures. Focal slowing could indicate a structural | | | or functional abnormality in the underlying brain. Common causes | | | include tumor, infection, stroke or trauma. This can also be seen in | | | the immediate post-ictal period. Clinical and/ or radiological | | | correlation is suggested if indicated. Bryan Celis MD | | | [facility] Clinical Neurophysiologist | | + + + POC Glucose (06/24/2019 1:21 PM PDT) + + + + + + | Component | Value | Ref Range | Performed | Pathologist | | | | | At | Signature | + + + + + + | Glucose, | 159 (H)Comment: Testing | 65 - 99 mg/dL | [facility] | | | POC | performed at [facility] | | LABORATORY | | | | [address];[place], [place] | | | | | | [address] | | | | + + + + + + + + | Specimen | + + | | + + + + + + + | Performing | Address | City/State/Zipcode | Phone Number | | Organization | | | | + + + + + | [facility] | [address] | [place] [address] | [phone] | + + + + + POC Glucose (06/24/2019 1:15 PM PDT) + + + + + + | Component | Value | Ref Range | Performed | Pathologist | | | | | At | Signature | + + + + + + | Glucose, | 111 (H)Comment: Testing | 65 - 99 mg/dL | [facility] | | | POC | performed at [facility] | | LABORATORY | | | | [address];[place] | | | | | | [address] | | | | + + + + + + + + | Specimen | + + | | + + + + + + + | Performing | Address | City/State/Zipcode | Phone Number | | Organization | | | | + + + + + | [facility] | [address] | [place] [address] | [phone] | + + + + + Phenytoin Level, Total and Free (06/24/2019 9:28 AM PDT) + + + + + + | Component | Value | Ref Range | Performed | Pathologist | | | | | At | Signature | + + + + + + | PHENYTOIN | 15.1Comment: | 10.0 - 20.0 | [facility] | | | TOTAL | | ug/mL | LABORATORY | | | | Detection | | | | | | Limit = 0.8 | | | | | | | | | | | | <0.8 Indicates None | | | | | | Detected | | | | + + + + + + | PHENYTOIN | 1.6Comment: | 1.0 - 2.0 ug/mL | [facility] | | | FREE | | | LABORATORY | | | | Detection | | | | | | Limit = 0.5Testing | | | | | | performed at [employer], | | | | | | [address], [address], | | | | | | [place] [address] | | | | + + + + + + + + | Specimen | + + | Blood | + + + + + + + | Performing | Address | City/State/Zipcode | Phone Number | | Organization | | | | + + + + + | [facility] | [address] | [place] [address] | [phone] | + + + + + Phosphorus (06/24/2019 5:04 AM PDT) + + + + + + | Component | Value | Ref Range | Performed | Pathologist | | | | | At | Signature | + + + + + + | Phosphorus | 1.8 (L)Comment: Testing | 2.3 - 4.8 mg/dL | [facility] | | | | performed at [facility] | | LABORATORY | | | | [address];[place], [place] | | | | | | [address] | | | | + + + + + + + + | Specimen | + + | Blood | + + + + + + + | Performing | Address | City/State/Zipcode | Phone Number | | Organization | | | | + + + + + | [facility] | [address] | [place] [address] | [phone] | + + + + + Magnesium (06/24/2019 5:04 AM PDT) + + + + + + | Component | Value | Ref Range | Performed | Pathologist | | | | | At | Signature | + + + + + + | Magnesium | 1.9Comment: Testing | 1.7 - 2.4 mg/dL | [facility] | | | | performed at [facility] | | LABORATORY | | | | [address];[place], [place] | | | | | | [address] | | | | + + + + + + + + | Specimen | + + | Blood | + + + + + + + | Performing | Address | City/State/Zipcode | Phone Number | | Organization | | | | + + + + + | [facility] | [address] | [place] [address] | [phone] | + + + + + CBC with Differential (06/24/2019 5:04 AM PDT) + + + + + + | Component | Value | Ref Range | Performed | Pathologist | | | | | At | Signature | + + + + + + | WBC | 9.90 | 3.80 - 11.00 | [facility] | | | | | K/uL | LABORATORY | | + + + + + + | RBC | 4.31 | 3.70 - 5.10 | [facility] | | | | | M/uL | LABORATORY | | + + + + + + | Hemoglobin | 13.5 | 11.3 - 15.5 | [facility] | | | | | g/dL | LABORATORY | | + + + + + + | Hematocrit | 39.5 | 34.0 - 46.0 % | [facility] | | | | | | LABORATORY | | + + + + + + | MCV | 91.6 | 80.0 - 100.0 fl | [facility] | | | | | | LABORATORY | | + + + + + + | MCH | 31.3 | 27.0 - 34.0 pg | [facility] | | | | | | LABORATORY | | + + + + + + | MCHC | 34.1 | 32.0 - 35.5 | [facility] | | | | | g/dL | LABORATORY | | + + + + + + | RDW-SD | 45.1 | 37 - 53 fl | [facility] | | | | | | LABORATORY | | + + + + + + | Platelet | 221 | 150 - 400 K/uL | [facility] | | | Count | | | LABORATORY | | + + + + + + | MPV | 7.5 | fl | [facility] | | | | | | LABORATORY | | + + + + + + | Diff Type | AUTOMATED | | [facility] | | | | | | LABORATORY | | + + + + + + | % | 67.06 | % | [facility] | | | Neutrophils | | | LABORATORY | | + + + + + + | % | 24.09 | % | [facility] | | | Lymphocytes | | | LABORATORY | | + + + + + + | Monocyte % | 7.57 | % | [facility] | | | | | | LABORATORY | | + + + + + + | Eosinophils | 0.51 | % | [facility] | | | % | | | LABORATORY | | + + + + + + | Basophils % | 0.77 | % | [facility] | | | | | | LABORATORY | | + + + + + + | Neutrophils | 6.64 | 1.90 - 7.40 | [facility] | | | , Absolute | | K/uL | LABORATORY | | + + + + + + | Absolute | 2.39 | 1.00 - 3.90 | [facility] | | | Lymphocytes | | K/uL | LABORATORY | | + + + + + + | Absolute | 0.75 | 0.00 - 0.80 | [facility] | | | Monocytes | | K/uL | LABORATORY | | + + + + + + | Eosinophils | 0.05 | 0.00 - 0.50 | [facility] | | | , Absolute | | K/uL | LABORATORY | | + + + + + + | Basophils, | 0.08Comment: Testing | 0.00 - 0.10 | [facility] | | | Absolute | performed at [facility] | K/uL | LABORATORY | | | | [address];[place], [place] | | | | | | [address] | | | | + + + + + + + + | Specimen | + + | Blood | + + + + + + + | Performing | Address | City/State/Zipcode | Phone Number | | Organization | | | | + + + + + | [facility] | [address] | [place] [address] | [phone] | + + + + + Basic Metabolic Panel (06/24/2019 5:04 AM PDT) + + + + + + | Component | Value | Ref Range | Performed | Pathologist | | | | | At | Signature | + + + + + + | Na | 144 | 135 - 145 | [facility] | | | | | mmol/L | LABORATORY | | + + + + + + | K | 3.7 | 3.5 - 4.9 | [facility] | | | | | mmol/L | LABORATORY | | + + + + + + | Cl | 112 (H) | 99 - 109 mmol/L | [facility] | | | | | | LABORATORY | | + + + + + + | CO2 | 26 | 23 - 32 mmol/L | [facility] | | | | | | LABORATORY | | + + + + + + | Anion Gap | 10 | 5 - 20 mmol/L | [facility] | | | | | | LABORATORY | | + + + + + + | Glucose | 136 (H) | 65 - 99 mg/dL | [facility] | | | | | | LABORATORY | | + + + + + + | BUN | 6 (L) | 8 - 25 mg/dL | [facility] | | | | | | LABORATORY | | + + + + + + | Creatinine | 0.65 | 0.50 - 1.00 | [facility] | | | | | mg/dL | LABORATORY | | + + + + + + | BUN/Creatin | 9 | | [facility] | | | ine Ratio | | | LABORATORY | | + + + + + + | Calcium | 8.1 (L) | 8.5 - 10.5 | [facility] | | | | | mg/dL | LABORATORY | | + + + + + + | Estimated | >60Comment: GFR <60: | >60 | [facility] | | | GFR | CHRONIC KIDNEY DISEASE, | mL/min/1.73m2 | LABORATORY | | | | IF FOUND OVER A 3 MONTH | | | | | | PERIOD.GFR <15: KIDNEY | | | | | | FAILURE.FOR | | | | | | AMERICANS, MULTIPLY THE | | | | | | CALCULATED GFR BY | | | | | | 1.210.This eGFR is | | | | | | calculated using the | | | | | | MDRD [facility] traceable | | | | | | equation.Testing | | | | | | performed at [facility] | | | | | | [facility];[place], [place] | | | | | | [address] | | | | + + + + + + + + | Specimen | + + | Blood | + + + + + + + | Performing | Address | City/State/Zipcode | Phone Number | | Organization | | | | + + + + + | [facility] | [address] | [place] [address] | [phone] | + + + + + Phenytoin Level, Total (06/24/2019 5:04 AM PDT) + + + + + + | Component | Value | Ref Range | Performed | Pathologist | | | | | At | Signature | + + + + + + | Date of | | | [facility] | | | Last Dose | | | LABORATORY | | + + + + + + | Time of | | | [facility] | | | Last Dose | | | LABORATORY | | + + + + + + | Dilantin | 14.8Comment: Testing | 10 - 20 ug/mL | [facility] | | | | performed at [facility];[address] | | LABORATORY | | | | [address];[place] | | | | | | [address] | | | | + + + + + + + + | Specimen | + + | Blood | + + + + + + + | Performing | Address | City/State/Zipcode | Phone Number | | Organization | | | | + + + + + | [facility] | [address] | [place] [address] | [phone] | + + + + + POC Glucose (06/23/2019 10:04 PM PDT) + + + + + + | Component | Value | Ref Range | Performed | Pathologist | | | | | At | Signature | + + + + + + | Glucose, | 175 (H)Comment: Testing | 65 - 99 mg/dL | [facility] | | | POC | performed at [facility];[address] | | LABORATORY | | | | [address];[place] | | | | | | [address] | | | | + + + + + + + + | Specimen | + + | | + + + + + + + | Performing | Address | City/State/Zipcode | Phone Number | | Organization | | | | + + + + + | [facility] | [address] | [place] [address] | [phone] | + + + + + Potassium (06/23/2019 6:39 PM PDT) + + + + + + | Component | Value | Ref Range | Performed | Pathologist | | | | | At | Signature | + + + + + + | K | 4.4Comment: Testing | 3.5 - 4.9 | [facility] | | | | performed at [facility];[address] | mmol/L | LABORATORY | | | | [address];[place] | | | | | | [address] | | | | + + + + + + + + | Specimen | + + | Blood | + + + + + + + | Performing | Address | City/State/Zipcode | Phone Number | | Organization | | | | + + + + + | [facility] | [address] | [place] [address] | [phone] | + + + + + Magnesium (06/23/2019 6:39 PM PDT) + + + + + + | Component | Value | Ref Range | Performed | Pathologist | | | | | At | Signature | + + + + + + | Magnesium | 2.2Comment: Testing | 1.7 - 2.4 mg/dL | [facility] | | | | performed at [facility];[address] | | LABORATORY | | | | [address];[place], [place] | | | | | | [address] | | | | + + + + + + + + | Specimen | + + | Blood | + + + + + + + | Performing | Address | City/State/Zipcode | Phone Number | | Organization | | | | + + + + + | [facility] | [address] | [place] [address] | [phone] | + + + + + XR Chest AP Portable (06/23/2019 6:23 PM PDT) + + | Specimen | + + | | + + + + + | Impressions | Performed At | + + + | Left-sided central line, endotracheal tube and nasogastric tube are | [facility] | | in satisfactory position. No evidence of left-sided pneumothorax. | | | Mild atelectasis at the right lung base. Signed by: Angle | | | David Pandya Sign Date/Time: 06/23/2019 6:46 PM | | + + + + + + | Narrative | Performed At | + + + | CHEST PORTABLE ONE VIEW CLINICAL INFORMATION: New central | [facility] | | line. COMPARISON: XR CHEST AP PORTABLE (06/22/2019); | | | FINDINGS: A left-sided central line is been placed. The tip of the | | | catheter is 6 cm below the óscar at the cavoatrial junction. No | | | pneumothorax is noted. The endotracheal tube tip is 3.9 cm above | | | the óscar. Nasogastric tube is seen coursing through the mediastinum | | | below the acquired [id number]-xi-zdhf into the upper abdomen. Overlying | | | EKG leads and oxygen tubing are noted. The heart is normal in | | | size. The vascular pattern appears relatively normal. There is | | | mild atelectasis at the right lung base near the hemidiaphragm. The | | | osseous structures are intact. | | + + + + + | Procedure Note | + + | Kali, Maximus Results In - 06/23/2019 6:50 PM PDT | | CHEST PORTABLE ONE VIEW | | | | CLINICAL INFORMATION: | | New central line. | | | | COMPARISON: | | XR CHEST AP PORTABLE (06/22/2019); | | | | FINDINGS: | | A left-sided central line is been placed. The tip of the catheter is 6 | | cm below the óscar at the cavoatrial junction. No pneumothorax is | | noted. The endotracheal tube tip is 3.9 cm above the óscar. | | Nasogastric tube is seen coursing through the mediastinum below the | | acquired [id number] into the upper abdomen. Overlying EKG leads and | | oxygen tubing are noted. The heart is normal in size. The vascular | | pattern appears relatively normal. There is mild atelectasis at the | | right lung base near the hemidiaphragm. The osseous structures are | | intact. | | | | IMPRESSION: | | Left-sided central line, endotracheal tube and nasogastric tube are in | | satisfactory position. | | No evidence of left-sided pneumothorax. | | Mild atelectasis at the right lung base. | | | | | | | | Signed by: Mumtaz Barbour Edward | | Sign Date/Time: 06/23/2019 6:46 PM | + + + +---------+ + + | Performing | Address | City/State/Zipcode | Phone Number | | Organization | | | | + +---------+ + + | [facility] | | | | + +---------+ + + POC Glucose (06/23/2019 4:46 PM PDT) + + + + + + | Component | Value | Ref Range | Performed | Pathologist | | | | | At | Signature | + + + + + + | Glucose, | 110 (H)Comment: Testing | 65 - 99 mg/dL | [facility] | | | POC | performed at [facility] | | LABORATORY | | | | [address];[place], [place] | | | | | | [address] | | | | + + + + + + + + | Specimen | + + | | + + + + + + + | Performing | Address | City/State/Zipcode | Phone Number | | Organization | | | | + + + + + | [facility] | [address] | [place] [address] | [phone] | + + + + + Lactic Acid (06/23/2019 1:20 PM PDT) + + + + + + | Component | Value | Ref Range | Performed | Pathologist | | | | | At | Signature | + + + + + + | Lactate, | 1.4Comment: Testing | 0.4 - 2.0 | [facility] | | | Serum | performed at [facility];[address] | mmol/L | LABORATORY | | | | [address];[place] | | | | | | [address] | | | | + + + + + + + + | Specimen | + + | Blood | + + + + + + + | Performing | Address | City/State/Zipcode | Phone Number | | Organization | | | | + + + + + | [facility] | [address] | [place] [address] | [phone] | + + + + + Hepatic Function Panel (06/23/2019 1:19 PM PDT) + + + + + + | Component | Value | Ref Range | Performed | Pathologist | | | | | At | Signature | + + + + + + | Protein, | 4.9 (L) | 6.3 - 8.2 g/dL | [facility] | | | Total | | | LABORATORY | | + + + + + + | Albumin | 2.9 (L) | 3.6 - 5.0 g/dL | [facility] | | | | | | LABORATORY | | + + + + + + | BILIRUBIN, | 0.8 | 0.1 - 1.5 mg/dL | [facility] | | | TOTAL | | | LABORATORY | | + + + + + + | Bilirubin | 0.4 (H) | 0.0 - 0.3 mg/dL | [facility] | | | Direct | | | LABORATORY | | + + + + + + | ALK PHOS | 68 | 35 - 115 U/L | [facility] | | | | | | LABORATORY | | + + + + + + | AST | 52 (H) | 10 - 45 U/L | [facility] | | | | | | LABORATORY | | + + + + + + | ALT | 20Comment: Testing | 10 - 65 U/L | [facility] | | | | performed at [facility];[address] | | LABORATORY | | | | [address];[place], [place] | | | | | | [address] | | | | + + + + + + + + | Specimen | + + | Blood | + + + + + + + | Performing | Address | City/State/Zipcode | Phone Number | | Organization | | | | + + + + + | [facility] | [address] | [place] [address] | [phone] | + + + + + Procalcitonin (06/23/2019 1:19 PM PDT) + + + + + + | Component | Value | Ref Range | Performed | Pathologist | | | | | At | Signature | + + + + + + | PROCALCITON | 0.37Comment: | <0.5 ng/mL | [facility] | | | IN | INTERPRETIVE | | LABORATORY | | | | INFORMATION: | | | | | | PROCALCITONIN PCT <= | | | | | | 0.5 ng/mL: Low risk | | | | | | for progression to | | | | | | severe systemic | | | | | | bacterial infection | | | | | | (severe sepsis/septic | | | | | | shock). Does not | | | | | | exclude an infection, | | | | | | because localized | | | | | | infections may be | | | | | | associated with such low | | | | | | levels. If PCT is | | | | | | measured very early | | | | | | after bacterial | | | | | | challenge (usually <6 | | | | | | hours), results may | | | | | | still be low and | | | | | | should re-assess PCT | | | | | | 6-24 hours later. PCT | | | | | | >0.5 and <= 2 ng/mL: | | | | | | Moderate risk for | | | | | | progression to severe | | | | | | systemic infection | | | | | | (severe sepsis/septic | | | | | | shock). Other | | | | | | conditions are known | | | | | | to elevate PCT, patient | | | | | | should be closely | | | | | | monitored both | | | | | | clinically and by | | | | | | re-assessing PCT | | | | | | within 6-24 hours. PCT > | | | | | | 2 ng/mL: High | | | | | | likelihood for | | | | | | progression to severe | | | | | | systemic bacterial | | | | | | infection (severe | | | | | | sepsis/septic shock). | | | | | | PCT >= 10 ng/mL: | | | | | | High likelihood of | | | | | | severe sepsis or septic | | | | | | shock.Testing performed | | | | | | at [facility];[address] | | | | | | [facility];[place] [address] | | | | + + + + + + + + | Specimen | + + | Blood | + + + + + + + | Performing | Address | City/State/Zipcode | Phone Number | | Organization | | | | + + + + + | [facility] | [address] [facility] | [place] [address] | [phone] | + + + + + POC Glucose (06/23/2019 11:54 AM PDT) + + + + + + | Component | Value | Ref Range | Performed | Pathologist | | | | | At | Signature | + + + + + + | Glucose, | 101 (H)Comment: Testing | 65 - 99 mg/dL | [facility] | | | POC | performed at [facility];[address] | | LABORATORY | | | | [address];[place] | | | | | | [address] | | | | + + + + + + + + | Specimen | + + | | + + + + + + + | Performing | Address | City/State/Zipcode | Phone Number | | Organization | | | | + + + + + | [facility] | [address] | [place] [address] | [phone] | + + + + + POC Glucose (06/23/2019 8:16 AM PDT) + + + + + + | Component | Value | Ref Range | Performed | Pathologist | | | | | At | Signature | + + + + + + | Glucose, | 121 (H)Comment: Testing | 65 - 99 mg/dL | [facility] | | | POC | performed at [facility];[address] | | LABORATORY | | | | [address];[place], [place] | | | | | | [address] | | | | + + + + + + + + | Specimen | + + | | + + + + + + + | Performing | Address | City/State/Zipcode | Phone Number | | Organization | | | | + + + + + | [facility] | [address] | [place] [address] | [phone] | + + + + + Blood gas, Arterial (06/23/2019 4:22 AM PDT) + + + + + + | Component | Value | Ref Range | Performed | Pathologist | | | | | At | Signature | + + + + + + | FiO2, POC | 30 | % | [facility] | | | | | | LABORATORY | | + + + + + + | pH, | 7.313 (L) | 7.350 - 7.450 | [facility] | | | Arterial, | | | LABORATORY | | | POC | | | | | + + + + + + | pCO2, | 46 (H) | 35 - 45 mmHg | [facility] | | | Arterial | | | LABORATORY | | + + + + + + | pO2, | 120 (H) | 80 - 105 mmHg | [facility] | | | Arterial | | | LABORATORY | | + + + + + + | HCO3, | 23 | 22 - 26 mmol/L | [facility] | | | Arterial | | | LABORATORY | | + + + + + + | TCO2, | 25 | 23 - 27 mEq/L | [facility] | | | Arterial, | | | LABORATORY | | | POC | | | | | + + + + + + | POC Base | 3 (H) | 0.0 - 2.0 | [facility] | | | Deficit | | mmol/L | LABORATORY | | | mmol/L | | | | | + + + + + + | SO2, | 98 | 95 - 98 % | [facility] | | | Arterial, | | | LABORATORY | | | POC | | | | | + + + + + + | Comment, | Modified Joao Test | | [facility] | | | POC | passedComment: Site = | | LABORATORY | | | | right radialTesting | | | | | | performed at [facility] | | | | | | [address];[place], [place] | | | | | | [address] | | | | + + + + + + + + | Specimen | + + | | + + + + + + + | Performing | Address | City/State/Zipcode | Phone Number | | Organization | | | | + + + + + | [facility] | [address] | [place] [address] | [phone] | + + + + + Phosphorus (06/23/2019 4:08 AM PDT) + + + + + + | Component | Value | Ref Range | Performed | Pathologist | | | | | At | Signature | + + + + + + | Phosphorus | 4.4Comment: Testing | 2.3 - 4.8 mg/dL | [facility] | | | | performed at [facility] | | LABORATORY | | | | [address];[place], [place] | | | | | | [address] | | | | + + + + + + + + | Specimen | + + | Blood | + + + + + + + | Performing | Address | City/State/Zipcode | Phone Number | | Organization | | | | + + + + + | [facility] | [address] | [place] [address] | [phone] | + + + + + Magnesium (06/23/2019 4:08 AM PDT) + + + + + + | Component | Value | Ref Range | Performed | Pathologist | | | | | At | Signature | + + + + + + | Magnesium | 1.6 (L)Comment: Testing | 1.7 - 2.4 mg/dL | [facility] | | | | performed at [facility] | | LABORATORY | | | | [facility], [place] | | | | | | [address] | | | | + + + + + + + + | Specimen | + + | Blood | + + + + + + + | Performing | Address | City/State/Zipcode | Phone Number | | Organization | | | | + + + + + | [facility] | [address] | [place] [address] | [phone] | + + + + + CBC with Differential (06/23/2019 4:08 AM PDT) + + + + + + | Component | Value | Ref Range | Performed | Pathologist | | | | | At | Signature | + + + + + + | WBC | 10.58 | 3.80 - 11.00 | [facility] | | | | | K/uL | LABORATORY | | + + + + + + | RBC | 4.38 | 3.70 - 5.10 | [facility] | | | | | M/uL | LABORATORY | | + + + + + + | Hemoglobin | 13.7 | 11.3 - 15.5 | [facility] | | | | | g/dL | LABORATORY | | + + + + + + | Hematocrit | 40.3 | 34.0 - 46.0 % | [facility] | | | | | | LABORATORY | | + + + + + + | MCV | 92.1 | 80.0 - 100.0 fl | [facility] | | | | | | LABORATORY | | + + + + + + | MCH | 31.3 | 27.0 - 34.0 pg | [facility] | | | | | | LABORATORY | | + + + + + + | MCHC | 33.9 | 32.0 - 35.5 | [facility] | | | | | g/dL | LABORATORY | | + + + + + + | RDW-SD | 46.4 | 37 - 53 fl | [facility] | | | | | | LABORATORY | | + + + + + + | Platelet | 188 | 150 - 400 K/uL | [facility] | | | Count | | | LABORATORY | | + + + + + + | MPV | 7.3 | fl | [facility] | | | | | | LABORATORY | | + + + + + + | Diff Type | AUTOMATED | | [facility] | | | | | | LABORATORY | | + + + + + + | % | 91.27 | % | [facility] | | | Neutrophils | | | LABORATORY | | + + + + + + | % | 5.21 | % | [facility] | | | Lymphocytes | | | LABORATORY | | + + + + + + | Monocyte % | 3.10 | % | [facility] | | | | | | LABORATORY | | + + + + + + | Eosinophils | 0.00 | % | [facility] | | | % | | | LABORATORY | | + + + + + + | Basophils % | 0.42 | % | [facility] | | | | | | LABORATORY | | + + + + + + | Neutrophils | 9.66 (H) | 1.90 - 7.40 | [facility] | | | , Absolute | | K/uL | LABORATORY | | + + + + + + | Absolute | 0.55 (L) | 1.00 - 3.90 | [facility] | | | Lymphocytes | | K/uL | LABORATORY | | + + + + + + | Absolute | 0.33 | 0.00 - 0.80 | [facility] | | | Monocytes | | K/uL | LABORATORY | | + + + + + + | Eosinophils | 0.00 | 0.00 - 0.50 | [facility] | | | , Absolute | | K/uL | LABORATORY | | + + + + + + | Basophils, | 0.04 | 0.00 - 0.10 | [facility] | | | Absolute | | K/uL | LABORATORY | | + + + + + + | RBC | RBC AND PLT MORPHOLOGY | | [facility] | | | Morphology | APPEAR NORMAL | | LABORATORY | | + + + + + + | Platelet | ADEQUATE | | [facility] | | | Estimate | | | LABORATORY | | + + + + + + | Comment | SLIDE SCANNED, AGREES | | [facility] | | | | WITH AUTOMATED | | LABORATORY | | | | RESULTS.Comment: Testing | | | | | | performed at [facility] | | | | | | [facility] | | | | | | [address] | | | | + + + + + + + + | Specimen | + + | Blood | + + + + + + + | Performing | Address | City/State/Zipcode | Phone Number | | Organization | | | | + + + + + | [facility] | [address] | [place] [address] | [phone] | + + + + + Basic Metabolic Panel (06/23/2019 4:08 AM PDT) + + + + + + | Component | Value | Ref Range | Performed | Pathologist | | | | | At | Signature | + + + + + + | Na | 141 | 135 - 145 | [facility] | | | | | mmol/L | LABORATORY | | + + + + + + | K | 2.8 (L) | 3.5 - 4.9 | [facility] | | | | | mmol/L | LABORATORY | | + + + + + + | Cl | 107 | 99 - 109 mmol/L | [facility] | | | | | | LABORATORY | | + + + + + + | CO2 | 25 | 23 - 32 mmol/L | [facility] | | | | | | LABORATORY | | + + + + + + | Anion Gap | 12 | 5 - 20 mmol/L | [facility] | | | | | | LABORATORY | | + + + + + + | Glucose | 140 (H) | 65 - 99 mg/dL | [facility] | | | | | | LABORATORY | | + + + + + + | BUN | 6 (L) | 8 - 25 mg/dL | [facility] | | | | | | LABORATORY | | + + + + + + | Creatinine | 0.64 | 0.50 - 1.00 | [facility] | | | | | mg/dL | LABORATORY | | + + + + + + | BUN/Creatin | 9 | | [facility] | | | ine Ratio | | | LABORATORY | | + + + + + + | Calcium | 7.6 (L) | 8.5 - 10.5 | [facility] | | | | | mg/dL | LABORATORY | | + + + + + + | Estimated | >60Comment: GFR <60: | >60 | [facility] | | | GFR | CHRONIC KIDNEY DISEASE, | mL/min/1.73m2 | LABORATORY | | | | IF FOUND OVER A 3 MONTH | | | | | | PERIOD.GFR <15: KIDNEY | | | | | | FAILURE.FOR | | | | | | AMERICANS, MULTIPLY THE | | | | | | CALCULATED GFR BY | | | | | | 1.210.This eGFR is | | | | | | calculated using the | | | | | | MDRD IDMS traceable | | | | | | equation.Testing | | | | | | performed at [facility] | | | | | | [address];[place] | | | | | | [address] | | | | + + + + + + + + | Specimen | + + | Blood | + + + + + + + | Performing | Address | City/State/Zipcode | Phone Number | | Organization | | | | + + + + + | [facility] | [address] | [place] [address] | [phone] | + + + + + EEG (06/23/2019 3:43 AM PDT) + + + | Narrative | Performed At | + + + | Jeana Goldstein, Neurodiagnostic Tech 06/23/2019 3:44 | | | [facility] [address] [place] [address] | | | [place] [address] Patient: Steffi Bishop ID: [id number] : | | | 1965 Age: 53 Gender: female Room #: 62514 Physician: | | | Anastasia Argueta Coating Machine Feeder: Jeana Goldstein Ref. Physician: Cary | | | Eduard SHULTZ Recording Date: 06/23/2019 Duration: 00:31:48 | | | Report Date: 06/23/2019 2:20 AM Medications: Ativan, | | | Keppra 2000mg loaded in ER at [place], fentanyl, no sedation | | | History: Patient found down with who she was staying with, seizure | | | like activity, illegal drugs found in system-Meth, THC, Ecstasy. | | | History of ETOH abuse ( alcohol screen was negative) and | | | Hepatitis C. EEG Technique: This is a routine 19 channel EEG | | | recorded using the standard 10-20 electrode placement. EEG | | | Findings: Patient was in status epilepticus. There were total | | | four seizures noted during the recording. First seizure was | | | ongoing when the recording was started. This lasted about 04:49 | | | minutes. Second seizure started 2 minutes after first one and | | | lasted 2:06 minutes. This one appeared to start in left | | | fronto-temporal area but difficult to ascertain definitively. | | | Third seizure followed shortly after second within 10 seconds | | | lasting approximately 12 minutes. Fourth seizure started within | | | 2 minutes of third one and continued until ending of the recording. | | | Interictally there were frequent (1-2 per second) generalized | | | epileptiform discharges with superimposed delta frequency (1 hertz) | | | waves and burst suppression intervals (1 second). Patient was in | | | status during photic stimulation and no hyperventilation was | | | performed. Interpretation: This EEG is abnormal with | | | status epilepticus. There were total four seizures on this | | | recording occurring at frequent intervals with interictal very | | | frequent generalized epileptiform discharges. Location of onset of | | | seizures is unclear and appears generalized. Additional | | | interictal slowing is likely from postictal state versus generalized | | | cerebral dysfunction from any cause. Treating emergently with | | | anti-epileptic drugs is recommended. These findings were | | | immediately notified to the partition making machine operator provider, Dr. Holland. | | | | | + + + Lactic Acid (06/23/2019 1:16 AM PDT) + + + + + + | Component | Value | Ref Range | Performed | Pathologist | | | | | At | Signature | + + + + + + | Lactate, | 0.6Comment: Testing | 0.4 - 2.0 | [facility] | | | Serum | performed at [facility] | mmol/L | LABORATORY | | | | [address];[place], [place] | | | | | | [address] | | | | + + + + + + + + | Specimen | + + | Blood | + + + + + + + | Performing | Address | City/State/Zipcode | Phone Number | | Organization | | | | + + + + + | [facility] | [address] | [place] [address] | [phone] | + + + + + XR Chest AP Portable (06/23/2019 12:06 AM PDT) + + | Specimen | + + | | + + + + + | Impressions | Performed At | + + + | 1. The tip of the endotracheal tube is 2.3 cm above the óscar. | [facility] | | There is an NG tube which extends into the stomach. 2. There is | | | patchy opacity in the left lung base suggesting atelectasis. Right | | | lung clear. 3. Cardiomediastinal contours are stable. 4. No | | | pneumothorax. Signed by: Daija Curiel Paula Sign | | | Date/Time: 06/23/2019 12:23 AM | | + + + + + + | Narrative | Performed At | + + + | CHEST PORTABLE ONE VIEW CLINICAL INFORMATION: Endotracheal | [facility] | | tube and orogastric tube placement. COMPARISON: Earlier | | | examination of this same date. | | + + + + + | Procedure Note | + + | Maximus Bass In - 06/23/2019 12:26 AM PDT | | CHEST PORTABLE ONE VIEW | | | | CLINICAL INFORMATION: | | Endotracheal tube and orogastric tube placement. | | | | COMPARISON: | | Earlier examination of this same date. | | | | IMPRESSION: | | 1. The tip of the endotracheal tube is 2.3 cm above the óscar. There | | is an NG tube which extends into the stomach. | | 2. There is patchy opacity in the left lung base suggesting | | atelectasis. Right lung clear. | | 3. Cardiomediastinal contours are stable. | | 4. No pneumothorax. | | | | | | | | | | Signed by: Daija Curiel Paula | | Sign Date/Time: 06/23/2019 12:23 AM | + + + +---------+ + + | Performing | Address | City/State/Zipcode | Phone Number | | Organization | | | | + +---------+ + + | [facility] | | | | + +---------+ + + Culture, Respiratory, Lower, Smear (06/23/2019 12:00 AM PDT) + + + + + + | Component | Value | Ref Range | Performed | Pathologist | | | | | At | Signature | + + + + + + | Gram Stain | GREATER THAN 10 WBCS/LPF | | [facility] | | | Result | | | LABORATORY | | + + + + + + | Gram Stain | LESS THAN 10 SEC/LPF | | [facility] | | | Result | | | LABORATORY | | + + + + + + | Gram Stain | 3+ | | [facility] | | | Result | GRAM POSITIVE COCCI | | LABORATORY | | | | | | | | + + + + + + | Gram Stain | 2+ | | [facility] | | | Result | GRAM POSITIVE RODS | | LABORATORY | | | | | | | | + + + + + + | Gram Stain | 1+ | | [facility] | | | Result | GRAM NEGATIVE RODS | | LABORATORY | | | | | | | | + + + + + + | Gram Stain | 1+ | | [facility] | | | Result | GRAM NEGATIVE COCCI | | LABORATORY | | | | | | | | + + + + + + | RESULT | 4+NORMAL UPPER | | [facility] | | | | RESPIRATORY LU | | LABORATORY | | | | | | | | + + + + + + | RESULT | Testing performed at | | [facility] | | | | [facility], [address] [facility] | | LABORATORY | | | | [place] | | | | | | [id number]: Testing | | | | | | performed at [facility], [address] | | | | | [facility] [address], | | | | | | [place] [address] | | | | + + + + + + + + | Specimen | + + | Body Fluid - Sputum | | specimen obtained by | | aspiration | | (specimen) | + + + + + + + | Performing | Address | City/State/Zipcode | Phone Number | | Organization | | | | + + + + + | [facility] | [address] | [place] [address] | [phone] | + + + + + POC Glucose (06/22/2019 11:44 PM PDT) + + + + + + | Component | Value | Ref Range | Performed | Pathologist | | | | | At | Signature | + + + + + + | Glucose, | 144 (H)Comment: Testing | 65 - 99 mg/dL | [facility] | | | POC | performed at [facility] | | LABORATORY | | | | [address];[place] | | | | | | [address] | | | | + + + + + + + + | Specimen | + + | | + + + + + + + | Performing | Address | City/State/Zipcode | Phone Number | | Organization | | | | + + + + + | [facility] | [address] | [place] [address] | [phone] | + + + + + MRSA NAAT (06/22/2019 11:34 PM PDT) + + + + + + | Component | Value | Ref Range | Performed | Pathologist | | | | | At | Signature | + + + + + + | SOURCE: | NARES(NOSE) | | [facility] | | | | | | LABORATORY | | + + + + + + | Result | PATIENT DISCHARGED | MRSNEG | [facility] | | | | (A)Comment: RESULT | | LABORATORY | | | | INVALID ON INSTRUMENT, | | | | | | UNABLE TO | | | | | | RECOLLECT.TMBTesting | | | | | | performed at [facility];[address] | | | | | | [address];[place] | | | | | | [address] | | | | + + + + + + + + | Specimen | + + | Tissue - Both | | anterior nares (body | | structure) | + + + + + + + | Performing | Address | City/State/Zipcode | Phone Number | | Organization | | | | + + + + + | [facility] | [address] | [place] [address] | [phone] | + + + + + documented in this encounter Visit Diagnoses + + | Diagnosis | + + | 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 | + + | Generalized tonic-clonic seizure (HCC) Other convulsions | + + | H/O ETOH abuse Nondependent alcohol abuse, in remission | + + | Polysubstance abuse (HCC) Other, mixed, or unspecified nondependent drug abuse, | | unspecified | + + | Methamphetamine intoxication (HCC) | + + | 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[facility]) Nondependent amphetamine or related acting sympathomimetic abuse, | | unspecified | + + | Post-ictal state (HCC) | + + | Altered mental status, unspecified altered mental status type | + + | Seng coma scale total score 3-8, at hospital admission (HCC) | + + | Hypotension, unspecified hypotension type | + + | Orthostatic hypotension | + + | History of posttraumatic stress disorder (PTSD) | + + | Smoker Tobacco use disorder | + + | History of alcohol abuse Nondependent alcohol abuse, in remission | + + | Major depressive disorder Major depressive disorder, single episode, unspecified | + + | Chronic hepatitis C without hepatic coma (HCC) | + + documented in this encounter Administered Medications + +--------+ +--------+------+------+ | Medication Order | MAR | Action | Dose | Rate | Site | | | Action | Date | | | | + +--------+ +--------+------+------+ | acetaminophen (TYLENOL) 160 | Given | 07/03/20 | 650 mg | | | | mg/5 mL liquid 650 mg 650 mg, | | 19 5:41 | | | | | Oral, EVERY 4 HOURS PRN, Pain, | | PM PDT | | | | | Starting Wed06/23/19 at 0518 | | | | | | + +--------+ +--------+------+------+ +-------+ +--------+---+---+ | Given | 07/03/20 | 650 mg | | | | | 19 9:28 | | | | | | AM PDT | | | | +-------+ +--------+---+---+ | Given | 07/02/20 | 650 mg | | | | | 19 8:16 | | | | | | PM PDT | | | | +-------+ +--------+---+---+ +---+---+ | | | +---+---+ + +---------+ +--------+-------+---+ | albumin 5% IVPB 12.5 g 12.5 g, | New Bag | 06/23/20 | 12.5 g | 250 | | | Intravenous, Administer over 1 | | 19 10:03 | | mL/hr | | | Hours, ONCE, Wed06/23/19 at | | AM PDT | | | | | 1015, For 1 dose | | | | | | + +---------+ +--------+-------+---+ +---+---+ | | | +---+---+ + +---------+ +------+-------+---+ | albumin 5% IVPB 25 g 25 g, | New Bag | 06/26/20 | 25 g | 500 | | | Intravenous, Administer over 1 | | 19 1:15 | | mL/hr | | | Hours, ONCE, 06/26/19 at | | AM PDT | | | | | 0100, For 1 dose | | | | | | + +---------+ +------+-------+---+ + +---+ | | | + +---+ | albumin 5% IVPB Starting Fri | | | 06/23/19 at 1001, For 1 dose, | | | Shameka Matre : xaviert | | | charissaide, | | + +---+ | | | + +---+ | albuterol-ipratropium 2.5-0.5 | | | mg/3 mL nebulizer solution 3 mL | | | 3 mL, Nebulization, RT EVERY 6 | | | HOURS PRN, Shortness of Breath, | | | Starting [facility] 06/22/19 at 2326 | | + +---+ | | | + +---+ + +-------+ +--------+---+---+ | chlorhexidine (PERIDEX) 0.12% | Given | 06/24/20 | 15 mLs | | | | solution 15 mL 15 mL, | | 19 8:03 | | | | | Mouth/Throat, 2 TIMES DAILY, | | PM PDT | | | | | First dose on Wed06/23/19 at | | | | | | | 0000, Swish in mouth for 30 | | | | | | | seconds then spit out. Do not eat | | | | | | | for 2-3 hours after using., | | | | | | + +-------+ +--------+---+---+ +-------+ +--------+---+---+ | Given | 06/24/20 | 15 mLs | | | | | 19 9:56 | | | | | | AM PDT | | | | +-------+ +--------+---+---+ | Given | 06/23/20 | 15 mLs | | | | | 19 9:03 | | | | | | PM PDT | | | | +-------+ +--------+---+---+ +---+---+ | | | +---+---+ + + + + +-------+---+ | DOPamine in dextrose 1,600 | Rate/Dos | 06/26/20 | 7.5 | 14.7 | | | mcg/mL infusion 0-10 mcg/kg/min | e Change | 19 1:02 | mcg/kg/m | mL/hr | | | | | PM PDT | in | | | | 52.4 kg (0-19.65 mL/hr, rounded | | | | | | | to 0-19.7 mL/hr), Intravenous, at | | | | | | | 0-19.7 mL/hr, TITRATED, Starting | | | | | | | 06/25/19 at 2230, Titration | | | | | | | Instruction: See below, Goal: SBP | | | | | | | greater than 90, Initial dose: 5 | | | | | | | mcg/kg/min, Increase rate by: | | | | | | | 2.5 mcg/kg/min every 5 minutes., | | | | | | | Decrease rate by: 2.5 mcg/kg/min | | | | | | | every 5 minutes., *: Titrate drug | | | | | | | per order as tolerated. | | | | | | | Titration may vary based on the | | | | | | | patient | | | | | | | | | | | | | | s critical condition. | | | | | | + + + + +-------+---+ + + + +-------+---+ | New Bag | 06/26/20 | 10 | 19.7 | | | | 19 11:43 | mcg/kg/m | mL/hr | | | | AM PDT | in | | | + + + +-------+---+ | Rate/Dose Change | 06/26/20 | 10 | 19.7 | | | | 19 12:37 | mcg/kg/m | mL/hr | | | | AM PDT | in | | | + + + +-------+---+ +---+---+ | | | +---+---+ + +---------+ + +-------+---+ | DOPamine in dextrose 1,600 | New Bag | 06/27/20 | 2.5 | 4.9 | | | mcg/mL infusion 0-10 mcg/kg/min | | 19 11:09 | mcg/kg/m | mL/hr | | | | | AM PDT | in | | | | 52.4 kg (0-19.65 mL/hr, rounded | | | | | | | to 0-19.7 mL/hr), Intravenous, at | | | | | | | 0-19.7 mL/hr, TITRATED, Starting | | | | | | | 06/26/19 at 1715, Titration | | | | | | | Instruction: See below, Goal: SBP | | | | | | | greater than 90, MAP 65 and | | | | | | | greater, Initial dose: 5 | | | | | | | mcg/kg/min, Increase rate by: 2.5 | | | | | | | mcg/kg/min every 5 minutes., | | | | | | | Decrease rate by: 2.5 mcg/kg/min | | | | | | | every 5 minutes., *: Titrate drug | | | | | | | per order as tolerated. | | | | | | | Titration may vary based on the | | | | | | | patient | | | | | | | | | | | | | | s critical condition. | | | | | | + +---------+ + +-------+---+ + + + +-------+---+ | Rate/Dose Change | 06/27/20 | 2.5 | 4.9 | | | | 19 10:49 | mcg/kg/m | mL/hr | | | | AM PDT | in | | | + + + +-------+---+ | Rate/Dose Verify | 06/27/20 | 5 | 9.8 | | | | 19 7:29 | mcg/kg/m | mL/hr | | | | AM PDT | in | | | + + + +-------+---+ +---+---+ | | | +---+---+ + +-------+ +-------+---+ + | enoxaparin (LOVENOX) 40 mg/0.4 | Given | 07/03/20 | 40 mg | | Abdomen- | | mL injection 40 mg 40 mg, | | 19 9:28 | | | LLQ | | Subcutaneous, EVERY 24 HOURS | | AM PDT | | | | | (Daily), First dose on Wed | | | | | | | 06/23/19 at 0900 | | | | | | + +-------+ +-------+---+ + +-------+ +-------+---+ + | Given | 07/02/20 | 40 mg | | Abdomen- | | | 19 8:00 | | | LLQ | | | AM PDT | | | | +-------+ +-------+---+ + | Given | 07/01/20 | 40 mg | | Abdomen- | | | 19 8:40 | | | LLQ | | | AM PDT | | | | +-------+ +-------+---+ + +---+---+ | | | +---+---+ + +---------+ +-------+-------+---+ | famotidine (PEPCID) 20 mg in | New Bag | 06/24/20 | 20 mg | 104 | | | sodium chloride 0.9% 50 mL IVPB | | 19 8:03 | | mL/hr | | | 20 mg, Intravenous, Administer | | PM PDT | | | | | over 30 Minutes, EVERY 12 HOURS | | | | | | | (2 times per day), First dose on | | | | | | | 06/23/19 at 2100 | | | | | | + +---------+ +-------+-------+---+ +---------+ +-------+-------+---+ | New Bag | 06/24/20 | 20 mg | 104 | | | | 19 9:56 | | mL/hr | | | | AM PDT | | | | +---------+ +-------+-------+---+ | New Bag | 06/23/20 | 20 mg | 104 | | | | 19 10:05 | | mL/hr | | | | PM PDT | | | | +---------+ +-------+-------+---+ +---+---+ | | | +---+---+ + +-------+ +-------+---+---+ | famotidine (PEPCID) injection | Given | 06/23/20 | 20 mg | | | | 20 mg 20 mg, Intravenous, 2 | | 19 10:04 | | | | | TIMES DAILY, First dose on Wed | | AM PDT | | | | | 06/23/19 at 0000, Dilute 2 mL of | | | | | | | famotidine with 8 mL of normal | | | | | | | saline to a final concentration | | | | | | | of 2 mg/mL. Administer ordered | | | | | | | dose over a period of at least 2 | | | | | | | minutes., | | | | | | + +-------+ +-------+---+---+ +-------+ +-------+---+---+ | Given | 06/23/20 | 20 mg | | | | | 19 12:34 | | | | | | AM PDT | | | | +-------+ +-------+---+---+ +---+---+ | | | +---+---+ + +-------+ +--------+---+---+ | fentaNYL (PF) injection 50 mcg | Given | 06/23/20 | 50 mcg | | | | 50 mcg, Intravenous, ONCE, Wed | | 19 12:34 | | | | | 06/23/19 at 0045, For 1 dose | | AM PDT | | | | + +-------+ +--------+---+---+ +---+---+ | | | +---+---+ + +---------+ +------+--------+---+ | folic acid 1 mg, thiamine | New Bag | 06/24/20 | 1 mg | 102.4 | | | (VITAMIN B-1) 100 mg in sodium | | 19 9:58 | | mL/hr | | | chloride 0.9% 50 mL IVPB 1 mg, | | AM PDT | | | | | Intravenous, Administer over 30 | | | | | | | Minutes, DAILY, First dose (after | | | | | | | last modification) on Fri | | | | | | | 06/23/19 at 0900, For 2 doses, | | | | | | | give 1st dose prior to any food | | | | | | | or dextrose containing IV., | | | | | | + +---------+ +------+--------+---+ +---------+ +------+--------+---+ | New Bag | 06/23/20 | 1 mg | 102.4 | | | | 19 9:50 | | mL/hr | | | | AM PDT | | | | +---------+ +------+--------+---+ +---+---+ | | | +---+---+ + +-------+ +------+---+---+ | folic acid tablet 1 mg 1 mg, | Given | 07/03/20 | 1 mg | | | | Oral, DAILY, First dose on Sun | | 19 9:28 | | | | | 06/25/19 at 0900 | | AM PDT | | | | + +-------+ +------+---+---+ +-------+ +------+---+---+ | Given | 07/02/20 | 1 mg | | | | | 19 8:00 | | | | | | AM PDT | | | | +-------+ +------+---+---+ | Given | 07/01/20 | 1 mg | | | | | 19 8:40 | | | | | | AM PDT | | | | +-------+ +------+---+---+ +---+---+ | | | +---+---+ + +---------+ + +-------+---+ | fosphenytoin (CEREBYX) 1,000 mg | New Bag | 06/23/20 | 1,000 mg | 480 | | | PE in sodium chloride 0.9% 100 | | 19 2:40 | PE | mL/hr | | | mL IVPB 1,000 mg PE, | | AM PDT | | | | | Intravenous, Administer over 15 | | | | | | | Minutes, ONCE, 06/23/19 at | | | | | | | 0215, For 1 dose, Maximum | | | | | | | infusion rate 150 mg PE/min. Keep | | | | | | | in refrigerator., | | | | | | + +---------+ + +-------+---+ +---+---+ | | | +---+---+ + +---------+ +---------+-------+---+ | fosphenytoin (CEREBYX) 100 mg | New Bag | 06/28/20 | 100 mg | 408 | | | PE in sodium chloride 0.9% 100 mL | | 19 11:19 | PE | mL/hr | | | IVPB 100 mg PE, Intravenous, | | AM PDT | | | | | Administer over 15 Minutes, EVERY | | | | | | | 8 HOURS INTERVAL, First dose on | | | | | | | 06/23/19 at 1030, Maximum | | | | | | | infusion rate 150 mg PE/min. Keep | | | | | | | in refrigerator., | | | | | | + +---------+ +---------+-------+---+ +---------+ +---------+-------+---+ | New Bag | 06/28/20 | 100 mg | 408 | | | | 19 2:25 | PE | mL/hr | | | | AM PDT | | | | +---------+ +---------+-------+---+ | New Bag | 06/27/20 | 100 mg | 408 | | | | 19 6:08 | PE | mL/hr | | | | PM PDT | | | | +---------+ +---------+-------+---+ +---+---+ | | | +---+---+ + +-------+ +-------+---+---+ | hydrocortisone (PF) | Given | 06/28/20 | 50 mg | | | | (solu-CORTEF) injection 50 mg 50 | | 19 8:16 | | | | | mg, Intravenous, EVERY 8 HOURS | | AM PDT | | | | | INTERVAL, First dose on Mon | | | | | | | 06/26/19 at 1700, Mix with 2 mL | | | | | | | sterile water to make 50 mg/mL., | | | | | | + +-------+ +-------+---+---+ +-------+ +-------+---+---+ | Given | 06/28/20 | 50 mg | | | | | 19 1:05 | | | | | | AM PDT | | | | +-------+ +-------+---+---+ | Given | 06/27/20 | 50 mg | | | | | 19 4:39 | | | | | | PM PDT | | | | +-------+ +-------+---+---+ +---+---+ | | | +---+---+ + +-------+ +-------+---+---+ | hydrocortisone (PF) | Given | 06/29/20 | 50 mg | | | | (solu-CORTEF) injection 50 mg 50 | | 19 8:32 | | | | | mg, Intravenous, EVERY 12 HOURS | | AM PDT | | | | | (2 times per day), First dose | | | | | | | (after last modification) on Wed | | | | | | | 06/28/19 at 2100, Mix with 2 mL | | | | | | | sterile water to make 50 mg/mL., | | | | | | + +-------+ +-------+---+---+ +-------+ +-------+---+---+ | Given | 06/28/20 | 50 mg | | | | | 19 8:05 | | | | | | PM PDT | | | | +-------+ +-------+---+---+ +---+---+ | | | +---+---+ + +-------+ +---------+---+ + | influenza quadrivalent | Given | 07/02/20 | 0.5 mLs | | Deltoid- | | (FLUZONE, FLUARIX, AFLURIA | | 19 12:45 | | | Left | | QUADRIVALENT) vaccine injection | | PM PDT | | | | | (syringe) 0.5 mL 0.5 mL, | | | | | | | Intramuscular, ONE TIME VACCINE, | | | | | | | 07/02/19 at 1300, For 1 dose, | | | | | | | Give patient education | | | | | | | information. Cheo prior to use., | | | | | | | | | | | | | + +-------+ +---------+---+ + +---+---+ | | | +---+---+ + +-------+ +---------+---+ + | insulin lispro (humaLOG) | Given | 06/24/20 | 1 Units | | Abdomen- | | injection (vial) 0-6 Units 0-6 | | 19 10:02 | | | LUQ | | Units, Subcutaneous, 4 TIMES | | AM PDT | | | | | DAILY WITH MEALS & NIGHTLY, First | | | | | | | dose on Wed06/23/19 at 0800, | | | | | | | CORRECTION SCALE: Blood Glucose | | | | | | | (BG) < 150: None BG | | | | | | | 150-200: DAY: 1 units. NIGHT: 0 | | | | | | | units BG 201-250: DAY: 2 | | | | | | | units. NIGHT: 1 units BG | | | | | | | 251-300: DAY: 3 units. NIGHT: 2 | | | | | | | units BG 301-350: DAY: 4 units. | | | | | | | NIGHT: 3 units BG 351-400: | | | | | | | DAY: 5 units. NIGHT: 4 units | | | | | | | BG > 400 : DAY: 6 units. | | | | | | | NIGHT: 5 units | | | | | | | AND CALL PROVIDER Use DAY | | | | | | | DOSE for doses scheduled: | | | | | | | AC, NPO, Daytime 2580-0040 Use | | | | | | | NIGHT DOSE for doses scheduled: | | | | | | | HS, 3AM, Nighttime [id number] | | | | | | | If the BG is not checked before | | | | | | | the patient starts eating, do not | | | | | | | give correction insulin. If HS | | | | | | | insulin given, check blood | | | | | | | glucose at 3AM. Only for use with | | | | | | | U-100 insulin syringe., | | | | | | + +-------+ +---------+---+ + +---+---+ | | | +---+---+ + +---------+ +---------+-------+---+ | lactated ringers (LR) bolus 500 | New Bag | 06/23/20 | 500 mLs | 500 | | | mL 500 mL, Intravenous, | | 19 3:23 | | mL/hr | | | Administer over 1 Hours, ONCE, | | AM PDT | | | | | 06/23/19 at 0345, For 1 dose | | | | | | + +---------+ +---------+-------+---+ +---+---+ | | | +---+---+ + +---------+ +---------+-------+---+ | lactated ringers (LR) bolus 500 | New Bag | 06/23/20 | 500 mLs | 1000 | | | mL 500 mL, Intravenous, | | 19 8:19 | | mL/hr | | | Administer over 30 Minutes, ONCE, | | AM PDT | | | | | 06/23/19 at 0830, For 1 dose | | | | | | + +---------+ +---------+-------+---+ +---+---+ | | | +---+---+ + +---------+ +---------+-------+---+ | lactated ringers (LR) bolus 500 | New Bag | 06/23/20 | 500 mLs | 1000 | | | mL 500 mL, Intravenous, | | 19 11:16 | | mL/hr | | | Administer over 30 Minutes, ONCE, | | AM PDT | | | | | 06/23/19 at 1100, For 1 dose | | | | | | + +---------+ +---------+-------+---+ +---+---+ | | | +---+---+ + +---------+ +--------+-------+---+ | levETIRAcetam (KEPPRA) IVPB 500 | New Bag | 06/25/20 | 500 mg | 400 | | | mg 500 mg, Intravenous, | | 19 8:35 | | mL/hr | | | Administer over 15 Minutes, EVERY | | AM PDT | | | | | 12 HOURS (2 times per day), | | | | | | | First dose on Wed06/23/19 at | | | | | | | 0800 | | | | | | + +---------+ +--------+-------+---+ +---------+ +--------+-------+---+ | New Bag | 06/24/20 | 500 mg | 400 | | | | 19 8:05 | | mL/hr | | | | PM PDT | | | | +---------+ +--------+-------+---+ | New Bag | 06/24/20 | 500 mg | 400 | | | | 19 9:58 | | mL/hr | | | | AM PDT | | | | +---------+ +--------+-------+---+ +---+---+ | | | +---+---+ + +-------+ +------+---+---+ | LORazepam (ATIVAN) injection | Given | 06/27/20 | 2 mg | | | | 1-8 mg 1-8 mg, Intravenous, | | 19 10:11 | | | | | EVERY 15 MIN PRN, See Admin | | AM PDT | | | | | Instruction, Starting Shaina | | | | | | | 06/22/19 at 2352, FOR ICU USE | | | | | | | ONLY SEE ALCOHOL WITHDRAWAL | | | | | | | PROTOCOL - ICU FOR DETAILS Give | | | | | | | dose as indicated below with each | | | | | | | reassessment CIWA <10 (RASS 0): | | | | | | | No Dose, see protocol for | | | | | | | reassessment instructions CIWA | | | | | | | 10-14 (RASS +1): 2mg - Reassess | | | | | | | in 15min CIWA 15-19 (RASS +2): | | | | | | | 3mg - Reassess in 15min CIWA | | | | | | | 20-29 (RASS +3): 4mg - Reassess | | | | | | | in 15min If CIWA >29 (RASS +4) | | | | | | | on FIRST assessment: 6mg - | | | | | | | Reassess in 15 min If CIWA >29 | | | | | | | (RASS +4) on SUBSEQUENT | | | | | | | assessment: 8mg - Reassess in 15 | | | | | | | min , | | | | | | + +-------+ +------+---+---+ + +---+ | | | + +---+ | LORazepam (ATIVAN) injection 2 | | | mg 2 mg, Intravenous, EVERY 1 | | | HOUR PRN, Seizures, Starting Shaina | | | 06/22/19 at 2326 | | + +---+ | | | + +---+ + +-------+ +------+---+---+ | LORazepam (ATIVAN) injection 2 | Given | 06/23/20 | 2 mg | | | | mg 2 mg, Intravenous, ONCE, Fri | | 19 3:02 | | | | | 06/23/19 at 0215, For 1 dose | | AM PDT | | | | + +-------+ +------+---+---+ +---+---+ | | | +---+---+ + +-------+ +------+---+---+ | LORazepam (ATIVAN) injection 2 | Given | 06/23/20 | 2 mg | | | | mg 2 mg, Intravenous, ONCE, Fri | | 19 5:35 | | | | | 06/23/19 at 1745, For 1 dose | | PM PDT | | | | + +-------+ +------+---+---+ +---+---+ | | | +---+---+ + +-------+ +--------+---+---+ | magnesium oxide (MAG-OX) tablet | Given | 06/29/20 | 800 mg | | | | 800 mg 800 mg, Oral, DAILY PRN, | | 19 8:32 | | | | | Per protocol, Starting Mon | | AM PDT | | | | | 06/26/19 at 1156, NON-ICU | | | | | | | Protocol Replace magnesium once | | | | | | | per day based on morning | | | | | | | magnesium level. Use scale below | | | | | | | to determine dose. If further | | | | | | | replacement is required after | | | | | | | this morning dose of magnesium, | | | | | | | notify provider Protocol NOT | | | | | | | recommended if Scr > 1.8, | | | | | | | dialysis patients or CrCl < 50 | | | | | | | mL/min Magnesium = 1-1.9 mg/dL | | | | | | | Give magnesium oxide 800 mg PO | | | | | | | x1 * Check magnesium in AM If | | | | | | | unable to tolerate po or | | | | | | | magnesium < 1mg/dL use IV | | | | | | | magnesium replacement. Give PO or | | | | | | | IV but never both. Maximum | | | | | | | recommended infusion rate = 1 | | | | | | | gram/hour., | | | | | | + +-------+ +--------+---+---+ +-------+ +--------+---+---+ | Given | 06/28/20 | 800 mg | | | | | 19 8:17 | | | | | | AM PDT | | | | +-------+ +--------+---+---+ +---+---+ | | | +---+---+ + +---------+ +-----+ +---+ | magnesium sulfate 2 g/50 mL | New Bag | 06/24/20 | 2 g | 25 mL/hr | | | IVPB 2 g 2 g, Intravenous, | | 19 9:47 | | | | | Administer over 120 Minutes, PRN, | | PM PDT | | | | | Per protocol, Starting Shaina | | | | | | | 06/22/19 at 2345, ICU Use | | | | | | | Only Protocol NOT recommended | | | | | | | if Scr > 1.8, dialysis patients | | | | | | | or CrCl < 50 mL/min Magnesium = | | | | | | | 1-1.9 mg/dL Give magnesium | | | | | | | sulfate 2 g IV x1 * Check | | | | | | | magnesium 2 hours after infusion | | | | | | | is completed If magnesium still | | | | | | | < 1.9 mg/dL,replace as indicated | | | | | | | per protocol Maximum | | | | | | | recommended infusion rate = 1 | | | | | | | gram/hour., | | | | | | + +---------+ +-----+ +---+ +---------+ +-----+ +---+ | New Bag | 06/24/20 | 2 g | 25 mL/hr | | | | 19 6:24 | | | | | | AM PDT | | | | +---------+ +-----+ +---+ | New Bag | 20 | 2 g | 25 mL/hr | | | | 19 7:32 | | | | | | AM PDT | | | | +---------+ +-----+ +---+ +---+---+ | | | +---+---+ + +---------+ +-----+ +---+ | magnesium sulfate 2 g/50 mL | New Bag | 06/27/20 | 2 g | 25 mL/hr | | | IVPB 2 g 2 g, Intravenous, | | 19 10:49 | | | | | Administer over 120 Minutes, | | AM PDT | | | | | DAILY PRN, Per protocol, Starting | | | | | | | 06/26/19 at 1156, NON-ICU | | | | | | | Protocol Replace magnesium once | | | | | | | per day based on morning | | | | | | | magnesium level. Use scale below | | | | | | | to determine dose. If further | | | | | | | replacement is required after | | | | | | | this morning dose of magnesium, | | | | | | | notify provider Protocol NOT | | | | | | | recommended if Scr > 1.8, | | | | | | | dialysis patients or CrCl < 50 | | | | | | | mL/min Magnesium = 1-1.9 mg/dL | | | | | | | Give magnesium sulfate 2 g IV x1 | | | | | | | * Check magnesium 2 hours | | | | | | | after infusion is completed If | | | | | | | magnesium still < 1.9 mg/dL, | | | | | | | contact provider for further | | | | | | | instruction. Give PO or IV but | | | | | | | never both. Maximum recommended | | | | | | | infusion rate = 1 gram/hour., | | | | | | + +---------+ +-----+ +---+ + +---+ | | | + +---+ | magnesium sulfate 4 g/100 mL | | | IVPB 4 g 4 g, Intravenous, | | | Administer over 240 Minutes, | | | DAILY PRN, Per protocol, Starting | | | 06/26/19 at 1156, NON-ICU | | | Protocol Replace magnesium once | | | per day based on morning | | | magnesium level. Use scale below | | | to determine dose. If further | | | replacement is required after | | | this morning dose of magnesium, | | | notify provider Protocol NOT | | | recommended if Scr > 1.8, | | | dialysis patients or CrCl < 50 | | | mL/min Magnesium < 1 mg/dL | | | Give magnesium sulfate 4 g IV x1 | | | * Check magnesium 2 hours | | | after infusion is completed If | | | magnesium still < 1.9 mg/dL, | | | contact provider for further | | | instruction. Give PO or IV but | | | never both. Maximum recommended | | | infusion rate = 1 gram/hour., | | + +---+ | | | + +---+ + +-------+ +-------+---+---+ | midodrine (PROAMATINE) tablet | Given | 07/03/20 | 10 mg | | | | 10 mg 10 mg, Oral, 3 TIMES DAILY | | 19 5:41 | | | | | EARLY, First dose on Sun | | PM PDT | | | | | 06/25/19 at 1115 | | | | | | + +-------+ +-------+---+---+ +-------+ +-------+---+---+ | Given | 07/03/20 | 10 mg | | | | | 19 1:34 | | | | | | PM PDT | | | | +-------+ +-------+---+---+ | Given | 07/03/20 | 10 mg | | | | | 19 6:00 | | | | | | AM PDT | | | | +-------+ +-------+---+---+ +---+---+ | | | +---+---+ + + + +---------+-------+---+ | norepinephrine (LEVOPHED) 4 mg | Rate/Dos | 06/25/20 | 1 | 3.8 | | | in 250 mL NS infusion 0-30 | e Change | 19 12:03 | mcg/min | mL/hr | | | mcg/min (0-112.5 mL/hr), at | | PM PDT | | | | | 0-112.5 mL/hr, Intravenous, | | | | | | | TITRATED, Starting 06/23/19 | | | | | | | at 1800, Titration Instruction: | | | | | | | See below, Goal: SBP greater than | | | | | | | 90, Initial dose: 3 mcg/min., | | | | | | | Increase rate by: 2 mcg/min every | | | | | | | 5 minutes., Decrease rate by: 2 | | | | | | | mcg/min every 5 minutes., *: | | | | | | | Titrate drug per order as | | | | | | | tolerated. Titration may vary | | | | | | | based on the patient | | | | | | | | | | | | | | s critical condition. | | | | | | + + + +---------+-------+---+ + + +---------+-------+---+ | Rate/Dose Change | 10/20/20 | 3 | 11.3 | | | | 19 8:33 | mcg/min | mL/hr | | | | AM PDT | | | | + + +---------+-------+---+ | Rate/Dose Change | 1020/20 | 5 | 18.8 | | | | 19 3:44 | mcg/min | mL/hr | | | | AM PDT | | | | + + +---------+-------+---+ +---+---+ | | | +---+---+ + +-------+ +------+---+---+ | ondansetron (ZOFRAN) injection | Given | 07/02/20 | 4 mg | | | | 4 mg 4 mg, Intravenous, EVERY 6 | | 19 8:00 | | | | | HOURS PRN, Nausea, Vomiting, | | AM PDT | | | | | Starting 06/28/19 at 0827 | | | | | | + +-------+ +------+---+---+ +-------+ +------+---+---+ | Given | 06/29/20 | 4 mg | | | | | 19 8:35 | | | | | | AM PDT | | | | +-------+ +------+---+---+ | Given | 06/28/20 | 4 mg | | | | | 19 11:27 | | | | | | AM PDT | | | | +-------+ +------+---+---+ +---+---+ | | | +---+---+ + +-------+ +-------+---+---+ | pantoprazole (PROTONIX) DR | Given | 07/03/20 | 40 mg | | | | tablet 40 mg 40 mg, Oral, DAILY | | 19 6:00 | | | | | BEFORE BREAKFAST, First dose on | | AM PDT | | | | | 06/27/19 at 1900, Do not cut | | | | | | | or crush., Indication: Unknown, | | | | | | | provider to assess | | | | | | + +-------+ +-------+---+---+ +-------+ +-------+---+---+ | Given | 07/02/20 | 40 mg | | | | | 19 6:08 | | | | | | AM PDT | | | | +-------+ +-------+---+---+ | Given | 07/01/20 | 40 mg | | | | | 19 6:59 | | | | | | AM PDT | | | | +-------+ +-------+---+---+ +---+---+ | | | +---+---+ + + + +---------+---------+---+ | phenylephrine (RADHA-SYNEPHRINE, | Rate/Dos | 06/23/20 | 10 | 6 mL/hr | | | VAZCULEP) 100 mcg/mL in sodium | e Change | 19 9:05 | mcg/min | | | | chloride 0.9% 500 mL infusion | | PM PDT | | | | | 0-100 mcg/min (0-60 mL/hr), at | | | | | | | 0-60 mL/hr, Intravenous, | | | | | | | TITRATED, Starting 06/23/19 | | | | | | | at 1330, Titration Instruction: | | | | | | | See below, Goal: SBP greater than | | | | | | | 90, Initial dose: 10 mcg/min, | | | | | | | Increase rate by: 10 mcg/min | | | | | | | every 5 minutes., Decrease rate | | | | | | | by: 10 mcg/min every 5 minutes., | | | | | | | *: Titrate drug per order as | | | | | | | tolerated. Titration may vary | | | | | | | based on the patient | | | | | | | | | | | | | | s critical condition. | | | | | | + + + +---------+---------+---+ + + +---------+ +---+ | Rate/Dose Change | 06/23/20 | 20 | 12 mL/hr | | | | 19 8:24 | mcg/min | | | | | PM PDT | | | | + + +---------+ +---+ | Rate/Dose Change | 06/23/20 | 30 | 18 mL/hr | | | | 19 8:00 | mcg/min | | | | | PM PDT | | | | + + +---------+ +---+ +---+---+ | | | +---+---+ + +-------+ +--------+---+---+ | phenytoin (DILANTIN) ER capsule | Given | 07/03/20 | 300 mg | | | | 300 mg 300 mg, Oral, EVERY | | 19 9:28 | | | | | MORNING, First dose on Wed | | AM PDT | | | | | 06/28/19 at 1530 | | | | | | + +-------+ +--------+---+---+ +-------+ +--------+---+---+ | Given | 07/02/20 | 300 mg | | | | | 19 8:00 | | | | | | AM PDT | | | | +-------+ +--------+---+---+ | Given | 07/01/20 | 300 mg | | | | | 19 8:40 | | | | | | AM PDT | | | | +-------+ +--------+---+---+ +---+---+ | | | +---+---+ + +-------+ +--------+---+---+ | potassium chloride (KLOR-CON) | Given | 07/03/20 | 20 mEq | | | | ER tablet 20-40 mEq 20-40 mEq, | | 19 6:00 | | | | | Oral, DAILY PRN, Per protocol, | | AM PDT | | | | | Starting 06/26/19 at 1155, | | | | | | | NON-ICU Protocol Replace | | | | | | | potassium once per day based on | | | | | | | morning potassium level. Use | | | | | | | scale below to determine dose. If | | | | | | | further replacement is required | | | | | | | after this morning dose of | | | | | | | potassium, notify provider | | | | | | | Protocol NOT recommended if Scr > | | | | | | | 1.8, dialysis patients or CrCl < | | | | | | | 50 mL/min [K+] =3.6 - 4 mEql/L | | | | | | | Give 20 mEq KCl PO x 1 dose | | | | | | | [K+] 3.0 - 3.5 mEql/L Give 40 | | | | | | | mEq KCl PO x 1 dose [K+] < 3.0 | | | | | | | mEq/L Notify provider * | | | | | | | Recheck K+ 4 hours after | | | | | | | replacement is done. Give either | | | | | | | tablet, liquid, or IV but never | | | | | | | more than one form. If repeat K | | | | | | | is still < 3.5, contact provider | | | | | | | for further instruction. May take | | | | | | | with food to decrease GI upset., | | | | | | | | | | | | | + +-------+ +--------+---+---+ +-------+ +--------+---+---+ | Given | 06/30/20 | 20 mEq | | | | | 19 5:34 | | | | | | AM PDT | | | | +-------+ +--------+---+---+ | Given | 06/29/20 | 40 mEq | | | | | 19 12:51 | | | | | | PM PDT | | | | +-------+ +--------+---+---+ + +---+ | | | + +---+ | potassium chloride (KLOR-CON) | | | packet 20-40 mEq 20-40 mEq, Per | | | G Tube, DAILY PRN, Per Protocol, | | | Starting 06/26/19 at 1155, | | | NON-ICU Protocol Replace | | | potassium once per day based on | | | morning potassium level. Use | | | scale below to determine dose. If | | | further replacement is required | | | after this morning dose of | | | potassium, notify provider | | | Protocol NOT recommended if Scr > | | | 1.8, dialysis patients or CrCl < | | | 50 mL/min [K+] =3.6 - 4 mEql/L | | | Give 20 mEq KCl PO x 1 dose | | | [K+] 3.0 - 3.5 mEql/L Give 40 | | | mEq KCl PO x 1 dose [K+] < 3.0 | | | mEq/L Notify provider * | | | Recheck K+ 4 hours after | | | replacement is done. Give either | | | tablet, liquid, or IV but never | | | more than one form. If repeat K | | | is still < 3.5, contact provider | | | for further instruction., | | + +---+ | | | + +---+ + +-------+ +--------+---+---+ | potassium chloride (KLOR-CON) | Given | 06/24/20 | 40 mEq | | | | packet 40-60 mEq 40-60 mEq, | | 19 6:24 | | | | | Feeding Tube, PRN, Per Protocol, | | AM PDT | | | | | Starting [facility] 06/22/19 at 2346, | | | | | | | ICU Use Only Protocol NOT | | | | | | | recommended if Scr > 1.8, | | | | | | | dialysis patients or CrCl < 50 | | | | | | | mL/min [K+] =3.6 - 4 mEql/L | | | | | | | Give 40 mEq KCl PO/FT x 1 dose | | | | | | | [K+] =3 - 3.5 mEql/L Give 60 | | | | | | | mEq KCl PO/FT x 1 dose [K+] < | | | | | | | 3.0 mEql/L Give 40 mEq KCl | | | | | | | Q2H PO/FT x 2 doses for total | | | | | | | of 80 meq. * Obtain K+ level 4 | | | | | | | hours after replacement is | | | | | | | done. If K+ still < 3.6 mEq/L, | | | | | | | repeat replacement as | | | | | | | indicated per protocol. Give | | | | | | | either tablet, liquid, or IV but | | | | | | | never more than one form., | | | | | | + +-------+ +--------+---+---+ + +---+ | | | + +---+ | potassium chloride 20 mEq in | | | sodium chloride 0.9% 250 mL IVPB | | | 20 mEq, Intravenous, Administer | | | over 2 Hours, DAILY PRN, Per | | | protocol, Starting 06/26/19 | | | at 1155, NON-ICU Protocol Replace | | | potassium once per day based on | | | morning potassium level. Use | | | scale below to determine dose. If | | | further replacement is required | | | after this morning dose of | | | potassium, notify provider | | | Protocol NOT recommended if Scr > | | | 1.8, dialysis patients or CrCl < | | | 50 mL/min [K+] =3.6 - 4 mEql/L | | | Give 20 mEq KCl IV X 1 dose | | | * Recheck K+ 2 hours after | | | replacement is done. Give either | | | tablet, liquid, or IV but never | | | more than one form. If repeat K | | | is still < 3.5, contact provider | | | for further instruction., | | + +---+ | | | + +---+ + +---------+ +--------+ +---+ | potassium chloride 20 mEq in | New Bag | 06/25/20 | 40 mEq | 50 mL/hr | | | sterile water 50 mL IVPB 20 mEq, | | 19 5:15 | | | | | Intravenous, Administer over 1 | | AM PDT | | | | | Hours, PRN, Per protocol, | | | | | | | Starting 06/24/19 at 2147, | | | | | | | ICU Use Only For Central | | | | | | | Line use Only Protocol NOT | | | | | | | recommended if Scr > 1.8, | | | | | | | dialysis patients or CrCl < 50 | | | | | | | mL/min [K+] =3.6 - 4 mEql/L | | | | | | | Give 20 mEq KCl Q1H IV x 2 doses | | | | | | | For a total of 40 mEq [K+] =3 | | | | | | | - 3.5 mEql/L Give 20 meq KCl | | | | | | | Q1H IV x 3 doses For a total | | | | | | | of 60 mEq [K+] < 3.0 mEql/L | | | | | | | Give 20 mEq KCl Q1H IV x 4 doses | | | | | | | For a total of 80 mEq. * | | | | | | | Obtain K+ level 2 hours after | | | | | | | replacement is done. If K+ | | | | | | | still < 3.6 mEq/L, repeat | | | | | | | replacement as indicated per | | | | | | | protocol., | | | | | | + +---------+ +--------+ +---+ +---------+ +--------+ +---+ | New Bag | 06/24/20 | 20 mEq | 50 mL/hr | | | | 19 9:53 | | | | | | PM PDT | | | | +---------+ +--------+ +---+ +---+---+ | | | +---+---+ + +-------+ +--------+---+---+ | potassium chloride 20 mEq/15 mL | Given | 06/23/20 | 40 mEq | | | | liquid 40 mEq 40 mEq, Oral, | | 19 11:40 | | | | | ONCE, 06/23/19 at 1100, For 1 | | AM PDT | | | | | dose, Give with 4 oz. of water | | | | | | | or other liquid., | | | | | | + +-------+ +--------+---+---+ +---+---+ | | | +---+---+ + +---------+ +--------+-------+---+ | potassium chloride 40 mEq in | New Bag | 06/28/20 | 40 mEq | 130 | | | sodium chloride 0.9% 500 mL IVPB | | 19 12:44 | | mL/hr | | | 40 mEq, Intravenous, Administer | | PM PDT | | | | | over 4 Hours, DAILY PRN, Per | | | | | | | protocol, Starting 06/26/19 | | | | | | | at 1155, NON-ICU Protocol Replace | | | | | | | potassium once per day based on | | | | | | | morning potassium level. Use | | | | | | | scale below to determine dose. If | | | | | | | further replacement is required | | | | | | | after this morning dose of | | | | | | | potassium, notify provider | | | | | | | Protocol NOT recommended if Scr > | | | | | | | 1.8, dialysis patients or CrCl < | | | | | | | 50 mL/min [K+] 3.0 - 3.5 mEql/L | | | | | | | Give 40 mEq KCl IV X 1 dose | | | | | | | * Recheck K+ 2 hours after | | | | | | | replacement is done. Give either | | | | | | | tablet, liquid, or IV but never | | | | | | | more than one form. If repeat K | | | | | | | is still < 3.5, contact provider | | | | | | | for further instruction., | | | | | | + +---------+ +--------+-------+---+ +---------+ +--------+-------+---+ | New Bag | 06/27/20 | 40 mEq | 130 | | | | 19 6:35 | | mL/hr | | | | PM PDT | | | | +---------+ +--------+-------+---+ +---+---+ | | | +---+---+ + +---------+ +--------+-------+---+ | potassium chloride 80 mEq in | New Bag | 06/23/20 | 80 mEq | 130 | | | sodium chloride 0.9% 1,000 mL | | 19 8:18 | | mL/hr | | | IVPB 80 mEq, Intravenous, | | AM PDT | | | | | Administer over 8 Hours, PRN, Per | | | | | | | protocol, Starting [facility] 06/22/19 | | | | | | | at 2346, ICU Use Only | | | | | | | Protocol NOT recommended if Scr > | | | | | | | 1.8, dialysis patients or CrCl < | | | | | | | 50 mL/min [K+] < 3.0 mEql/L | | | | | | | Give 80 mEq KCl IV x 1 dose * | | | | | | | Obtain K+ level 2 hours after | | | | | | | replacement is done. If K+ | | | | | | | still < 3.6 mEq/L, repeat | | | | | | | replacement as indicated per | | | | | | | protocol. Give either tablet, | | | | | | | liquid, or IV but never more than | | | | | | | one form., | | | | | | + +---------+ +--------+-------+---+ +---+---+ | | | +---+---+ + +---------+ +---------+ +---+ | potassium phosphate 30 mmol in | New Bag | 06/24/20 | 30 mmol | 85 mL/hr | | | dextrose 5% 500 mL IVPB 30 mmol, | | 19 10:04 | | | | | Intravenous, Administer over 6 | | AM PDT | | | | | Hours, ONCE, 06/24/19 at | | | | | | | 0930, For 1 dose, Peripheral Line | | | | | | | Concentration. Infusion rate 7 | | | | | | | mmol/hr (10mEq K+) each 10 mmol | | | | | | | contains approx 15 mEq of | | | | | | | Potassium, | | | | | | + +---------+ +---------+ +---+ +---+---+ | | | +---+---+ + +-------+ + +---+---+ | potassium phosphate-sodium | Given | 07/03/20 | 1 tablet | | | | phosphate (K-PHOS NEUTRAL) tablet | | 19 9:28 | | | | | 1 tablet 1 tablet, Oral, 2 | | AM PDT | | | | | TIMES DAILY, First dose on Shaina | | | | | | | 06/29/19 at 1145, Each tablet | | | | | | | contains 250 mg (8 mmol) | | | | | | | elemental phosphorus, 13 mEq | | | | | | | sodium, 1.1 mEq potassium. Dose | | | | | | | in mg and mmol is based on | | | | | | | elemental phosphorous., | | | | | | + +-------+ + +---+---+ +-------+ + +---+---+ | Given | 07/02/20 | 1 tablet | | | | | 19 8:16 | | | | | | PM PDT | | | | +-------+ + +---+---+ | Given | 07/02/20 | 1 tablet | | | | | 19 8:00 | | | | | | AM PDT | | | | +-------+ + +---+---+ +---+---+ | | | +---+---+ + +-------+ +-------+---+---+ | propofol (DIPRIVAN) injection | Given | 06/23/20 | 20 mg | | | | 20 mg 20 mg, Intravenous, ONCE, | | 19 2:06 | | | | | 06/23/19 at 0215, For 1 dose, | | AM PDT | | | | | Shake well. Do not filter. | | | | | | | Expires 12 hours after spiked., | | | | | | + +-------+ +-------+---+---+ +---+---+ | | | +---+---+ + + + + +-------+---+ | propofol infusion (DIPRIVAN) 10 | Rate/Dos | 06/24/20 | 35 | 11.4 | | | mg/mL infusion 0-70 mcg/kg/min | e Change | 19 4:42 | mcg/kg/m | mL/hr | | | | | AM PDT | in | | | | 54.2 kg (0-22.764 mL/hr, rounded | | | | | | | to 0-22.8 mL/hr), at 0-22.8 | | | | | | | mL/hr, Intravenous, TITRATED, | | | | | | | Starting 06/23/19 at 0000, | | | | | | | Shake well. Do not filter. | | | | | | | Expires 12 hours after spiked., | | | | | | | Titration Instruction: See below, | | | | | | | Goal: RASS -2 to 0, Initial | | | | | | | dose: 20 mcg/kg/min, Increase | | | | | | | rate by: 5-10 mcg/kg/min every 5 | | | | | | | minutes., Decrease rate by: 5-10 | | | | | | | mcg/kg/min every 5 minutes., *: | | | | | | | Titrate drug per order as | | | | | | | tolerated. Titration may vary | | | | | | | based on the patient | | | | | | | | | | | | | | s critical condition. | | | | | | + + + + +-------+---+ + + + +-------+---+ | New Bag | 06/24/20 | 30 | 9.8 | | | | 19 12:02 | mcg/kg/m | mL/hr | | | | AM PDT | in | | | + + + +-------+---+ | Rate/Dose Change | 06/23/20 | 25 | 8.1 | | | | 19 5:47 | mcg/kg/m | mL/hr | | | | PM PDT | in | | | + + + +-------+---+ +---+---+ | | | +---+---+ + +-------+ +-------+---+---+ | sertraline (ZOLOFT) tablet 25 | Given | 07/03/20 | 25 mg | | | | mg 25 mg, Oral, DAILY, First | | 19 9:28 | | | | | dose on 07/02/19 at 0900 | | AM PDT | | | | + +-------+ +-------+---+---+ +-------+ +-------+---+---+ | Given | 07/02/20 | 25 mg | | | | | 19 10:13 | | | | | | AM PDT | | | | +-------+ +-------+---+---+ +---+---+ | | | +---+---+ + +---------+ +---+-------+---+ | sodium chloride 0.9% (NS) 500 | New Bag | 06/25/20 | | 1000 | | | mL bolus Intravenous, Administer | | 19 5:10 | | mL/hr | | | over 30 Minutes, ONCE, Sun | | PM PDT | | | | | 06/25/19 at 1730, For 1 dose | | | | | | + +---------+ +---+-------+---+ +---+---+ | | | +---+---+ + + + +---+-------+---+ | sodium chloride 0.9% (NS) 500 | Bolus | 06/25/20 | | 500 | | | mL bolus Intravenous, Administer | from Bag | 19 9:15 | | mL/hr | | | over 1 Hours, ONCE, 06/25/19 | | PM PDT | | | | | at 2130, For 1 dose | | | | | | + + + +---+-------+---+ +---+---+ | | | +---+---+ + + + +---+-------+---+ | sodium chloride 0.9% (NS) 500 | Bolus | 06/25/20 | | 500 | | | mL bolus Intravenous, Administer | from Bag | 19 11:44 | | mL/hr | | | over 1 Hours, ONCE, 06/25/19 | | PM PDT | | | | | at 2315, For 1 dose | | | | | | + + + +---+-------+---+ +---+---+ | | | +---+---+ + + + +---+-------+---+ | sodium chloride 0.9% (NS) 500 | Bolus | 06/25/20 | | 1000 | | | mL bolus Intravenous, Administer | from Bag | 19 11:15 | | mL/hr | | | over 30 Minutes, ONCE, Sun | | PM PDT | | | | | 06/25/19 at 2315, For 1 dose | | | | | | + + + +---+-------+---+ +---+---+ | | | +---+---+ + +---------+ +--------+-------+---+ | sodium chloride 0.9% (NS) bolus | New Bag | 06/25/20 | 1,000 | 2000 | | | 1,000 mL 1,000 mL, Intravenous, | | 19 3:10 | mLs | mL/hr | | | Administer over 30 Minutes, | | AM PDT | | | | | ONCE, 06/25/19 at 0330, For 1 | | | | | | | dose, 500 mL bolus (of this | | | | | | | liter) was for NICOM fluid bolus; | | | | | | | 2nd 500 mL bolus after NICOM, | | | | | | + +---------+ +--------+-------+---+ + +---+ | | | + +---+ | sodium chloride 0.9% (NS) bolus | | | 1,000 mL 1,000 mL, Intravenous, | | | Administer over 30 Minutes, ONCE | | | PRN, Condition: if SVI increase | | | greater than or equal to 10% | | | after initial passive leg raise | | | or fluid bolus test and MAP<65 or | | | SBP <90., Starting 06/25/19 | | | at 2216, For 1 dose, NICOM | | | PROTOCOL. To be administered by | | | sepsis or critical care RNs ONLY. | | | Use Pressure Bag, | | + +---+ | | | + +---+ | sodium chloride 0.9% (NS) bolus | | | 250 mL 250 mL, Intravenous, | | | Administer over 10 Minutes, PRN, | | | Condition: fluid bolus test- if | | | passive leg raise | | | contraindicated., Starting Sun | | | 06/25/19 at 2216, For 5 doses, | | | NICOM PROTOCOL. To be | | | administered by sepsis or | | | critical care RNs ONLY. Use | | | Pressure Bag, | | + +---+ | | | + +---+ + +---------+ +---------+-------+---+ | sodium chloride 0.9% (NS) bolus | New Bag | 06/25/20 | 500 mLs | 2000 | | | 500 mL 500 mL, Intravenous, | | 19 2:36 | | mL/hr | | | Administer over 15 Minutes, PRN, | | AM PDT | | | | | Condition: if SVI increase | | | | | | | greater than or equal to 10% | | | | | | | after initial 1L NS bolus and | | | | | | | MAP<65 or SBP <90., Starting Sun | | | | | | | 06/25/19 at 0208, For 5 doses, | | | | | | | NICOM PROTOCOL. To be | | | | | | | administered by sepsis or | | | | | | | critical care RNs ONLY. Use | | | | | | | Pressure Bag, | | | | | | + +---------+ +---------+-------+---+ + +---+ | | | + +---+ | sodium chloride 0.9% (NS) bolus | | | 500 mL 500 mL, Intravenous, | | | Administer over 15 Minutes, PRN, | | | Condition: if SVI increase | | | greater than or equal to 10% | | | after initial 1L NS bolus and | | | MAP<65 or SBP <90., Starting Sun | | | 06/25/19 at 2216, For 5 doses, | | | NICOM PROTOCOL. To be | | | administered by sepsis or | | | critical care RNs ONLY. Use | | | Pressure Bag, | | + +---+ | | | + +---+ | sodium chloride 0.9% (NS) bolus | | | 500 mL 500 mL, Intravenous, | | | Administer over 15 Minutes, PRN, | | | See Admininstration Instructions, | | | Starting 06/25/19 at 2216, | | | Bolus for UOP (mL/hr) <: 25, | | | Bolus for MAP <: 65, Bolus based | | | on parameters specified. HOLD | | | bolus if patient meets criteria | | | for bolus but CVP > 12 (if | | | measured). Repeat as necessary. | | | Notify provider if bolus volume | | | greater than 3L / 12 hours or if | | | SpO2 drops > 3%, | | + +---+ | | | + +---+ + +---------+ +---+ +---+ | sodium chloride 0.9% (NS) | New Bag | 06/23/20 | | 75 mL/hr | | | infusion at 75 mL/hr, | | 19 9:56 | | | | | Intravenous, CONTINUOUS, Starting | | AM PDT | | | | | 06/23/19 at 0400 | | | | | | + +---------+ +---+ +---+ +---------+ +---+ +---+ | New Bag | 06/23/20 | | 75 mL/hr | | | | 19 3:33 | | | | | | AM PDT | | | | +---------+ +---+ +---+ +---+---+ | | | +---+---+ + +---------+ +---+ +---+ | sodium chloride 0.9% (NS) | New Bag | 07/03/20 | | 30 mL/hr | | | infusion at 30 mL/hr, | | 19 7:42 | | | | | Intravenous, CONTINUOUS, Starting | | AM PDT | | | | | 06/25/19 at 2045 | | | | | | + +---------+ +---+ +---+ + + +---+ +---+ | New Bag | 07/01/20 | | 30 mL/hr | | | | 19 4:48 | | | | | | PM PDT | | | | + + +---+ +---+ | Rate/Dose Change | 07/01/20 | | 30 mL/hr | | | | 19 12:12 | | | | | | PM PDT | | | | + + +---+ +---+ +---+---+ | | | +---+---+ + +---------+ +--------+-------+---+ | thiamine (VITAMIN B-1) 100 mg | New Bag | 06/23/20 | 100 mg | 102 | | | in sodium chloride 0.9% 50 mL | | 19 3:22 | | mL/hr | | | IVPB 100 mg, Intravenous, | | AM PDT | | | | | Administer over 30 Minutes, ONCE, | | | | | | | 06/23/19 at 0015, For 1 dose | | | | | | + +---------+ +--------+-------+---+ +---+---+ | | | +---+---+ + +-------+ +--------+---+---+ | thiamine (VITAMIN B-1) tablet | Given | 07/03/20 | 100 mg | | | | 100 mg 100 mg, Oral, DAILY, | | 19 9:28 | | | | | First dose on 06/24/19 at | | AM PDT | | | | | 1200 | | | | | | + +-------+ +--------+---+---+ +-------+ +--------+---+---+ | Given | 07/02/20 | 100 mg | | | | | 19 8:00 | | | | | | AM PDT | | | | +-------+ +--------+---+---+ | Given | 07/01/20 | 100 mg | | | | | 19 8:40 | | | | | | AM PDT | | | | +-------+ +--------+---+---+ +---+---+ | | | +---+---+ documented in this encounter
--- OUTSIDE RECORDS SUMMARY | ~2019-07-24 | XMS | Clinical Summary ---
Demographics + + + | Address | [address] | | | [place] [address] | + + + | Home Phone | | + + + | Preferred Language | Unknown | + + + | Marital Status | | + + + | Episcopalian Affiliation | [id number] | + + + | Race | Unknown | + + + | Ethnic Group | Unknown | + + + Author + + + | Author | [facility] (Historical as of | | | 04-22-19) | + + + | Organization | [facility] (Historical as of | | | 04-22-19) [...] Team Providers + +------+ + | Care Supervisor [place] Name | Role | Phone | + [...]
--- OUTSIDE RECORDS SUMMARY | ~2019-07-24 | XMS | Encounter Summary ---
Demographics + + + | Address | [address] | | | [place] [address] | + + + | Home Phone | | + + + | Preferred Language | Unknown | + + + | Marital Status | Single | + + + | Mormonism Affiliation | 1041 | + + + | Race | Unknown | + + + | Ethnic Group | Unknown | + + + Author + + + | Author | [facility] | | | and [place] | + + + | Organization | [facility] | | | and [...] Team Providers + +------+ + | Care Bufferer Name | Role | Phone | + +------+ + PCP | Unavailable | + +------+ + Encounter Details +--------+ + + + + | Date | Type | Department | Care Team | Description | +--------+ + + + + | 08/18/ | Hospital | [facility] | Conversion | Pain | | 2013 | Encounter | CONVERSION [address] | Transaction, | | | | | [address] | Provider Unknown | | | | | [place] | | | | | | [phone] | (Fax) | | | | | [phone] | | | +--------+ + + + [...] [place], | | | | | | [place] [address] | | | | | | [phone] | | | | | | | [...]
--- OUTSIDE RECORDS SUMMARY | ~2019-07-24 | XMS | Clinical Summary ---
Demographics + + + | Address | [address] | | | [place] [address] | + + + | Home Phone | | + + + | Preferred Language | Unknown | + + + | Marital Status | Single | + + + | Samaritan Affiliation | 1041 | + + + | Race | Unknown | + + + | Ethnic Group | Unknown | + + + Author + + + | Author | [facility] | | | and [place] | + + + | Organization | [facility] | | | [...] Team Providers + +------+ + | Care Mold Maintenance Technician Name | Role | Phone | [...] 3 times daily | tablet | | 5/20 | | e | | tablet | as needed (for | | | 19 | | | | | SBP<90). | | | | | | + + + +---------+------+------+-------+ | phenytoin | Take 1 capsule by | 30 | 0 | 10/2 | | Activ | | (DILANTIN) 300 MG ER | mouth every morning. | capsule | | 6/20 | | e | | capsule | | | | 19 | | | + + + +---------+------+------+-------+ | thiamine (VITAMIN | Take 1 tablet by | 30 | 0 | 10/2 | | Activ | | B-1) 100 mg tablet | mouth Daily. | tablet | | 6/20 | | e | | | | | | 19 | | | + + + +---------+------+------+-------+ | sertraline | Take 1 tablet by | 30 | 0 | 10/2 | | Activ | | (ZOLOFT) 25 mg | mouth Daily. 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 | | + + + | PTSD (post-traumatic stress disorder) | 12/01/2018 | + + + Resolved Problems + + + + | Problem | Noted | Resolved | | | Date | Date | + + + + | Generalized tonic-clonic seizure | 06/22/20 | | | | 19 | 9 | + + + + Encounters +--------+ + + + + | Date | Type | Specialty | Care Team | Description | +--------+ + + + + | 06/22/ | Hospital | Internal Medicine | Cary Chapa DO | Status epilepticus | | 2019 - | Encounter | | Deepak Stanton MD | ([facility]); Generalized | | | | | Beto Kothari MD | tonic-clonic seizure | | 07/03/ | | | Freddy Gastelum MD | ([facility]); H/O ETOH | | 2018 | | | | abuse; Polysubstance | | | | | | abuse ([facility]); | | | | | | Methamphetamine | | | | | | intoxication ([facility]); | | | | | | 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[facility]); | | | | | | Post-ictal state | | | | | | ([facility]); Altered | | | | | | mental status, | | | | | | unspecified altered | | | | | | mental status type; | | | | | | [place] coma scale | | | | | | total score 3-8, at | | | | | | hospital admission | | | | | | ([facility]); Hypotension, | | | | | | unspecified | | | | | | hypotension type; | | | | | | Orthostatic | | | | | | hypotension; History | | | | | | of posttraumatic | | | | | | stress disorder | | | | | | (PTSD) | +--------+ + + + + from Last 3 Months Immunizations + + + + | Name | Administration Dates | Next Due | + + + + | INFLUENZA PF | 07/02/2019 | | | QUAD(PED/ADOL/ADULT) | | | | ,PSKT or VIAL | | | + + + + Social History + [...] | + + Last Filed Vital Signs + [...] + + + + Plan of Treatment +--------+---------+ + + + | Date | Type | Specialty | Care Team | Description | +--------+---------+ + + + | 08/07/ | Office | Otolaryngology | Gino Camara MD | | | 2019 | Visit | | [address] [facility] | | | | | | [address], | | | | | | [place] [address] | | | | | | [phone] | | | | | | | | +--------+---------+ + + + + + + + + | Health Maintenance | Due Date | Last Done | Comments | + + + + + | Vaccine: | | | | | Pneumococcal | 1 | | | | (1 of 1 - PPSV23) | | | | + + + [...] + + + + | Vaccine: Zoster (2 | | 11/03/2018 | | | of 2) | 9 | | | + + + + + | Vaccine: | | 04/07/2011, 10/07/2001, | | | Dtap/Tdap/Td (2 - | 1 | 01/25/1989 | | | Td) | | | | + + + + + | Hepatitis C | Completed | 06/22/2019 | | | Screening | | | | + + + + + | Vaccine: Influenza | Completed | 07/02/2019, 06/12/2017, | | | | | 05/06/2016, Additional history | | | | | exists | | + + + + + Procedures + +--------+ + + + | [...] section. | + +--------+ + + + from Last 3 Months Results Potassium (07/03/2019 11:26 AM PDT)Only the most recent of 13 results within the time perio d is included. + + + + + + | Component | Value | Ref Range | Performed | Pathologist | | | | | At | Signature | + + + + + + | K | 4.1Comment: Testing | 3.5 - 4.9 | [facility] | | | | performed at [facility];[address] | mmol/L | LABORATORY | | | | [address];[place], [place] | | | | | | [address] | | | | + + + + + + + + | Specimen | + + | Blood | + + + + + + + | Performing | Address | City/State/Zipcode | Phone Number | | Organization | | | | + + + + + | [facility] | [address] | [place] [address] | [phone] | + + + + + Phosphorus (07/03/2019 4:17 AM PDT)Only the most recent of 11 results within the time tawny od is included. + + + + + + | Component | Value | Ref Range | Performed | Pathologist | | | | | At | Signature | + + + + + + | Phosphorus | 4.6Comment: Testing | 2.3 - 4.8 mg/dL | [facility] | | | | performed at [facility], [address] | | LABORATORY | | | | [address], | | | | | | [place] [address] | | | | + + + + + + + + | Specimen | + + | Blood | + + + + + + + | Performing | Address | City/State/Zipcode | Phone Number | | Organization | | | | + + + + + | [facility] | [address] | [place] [address] | [phone] | + + + + + Magnesium (07/03/2019 4:17 AM PDT)Only the most recent of 13 results within the time jose roberto roth is included. + + + + + + | Component | Value | Ref Range | Performed | Pathologist | | | | | At | Signature | + + + + + + | Magnesium | 2.2Comment: Testing | 1.7 - 2.4 mg/dL | [facility] | | | | performed at [facility], [address] | | LABORATORY | | | | [address], | | | | | | [place] [address] | | | | + + + + + + + + | Specimen | + + | Blood | + + + + + + + | Performing | Address | City/State/Zipcode | Phone Number | | Organization | | | | + + + + + | [facility] | [address] | [place] [address] | [phone] | + + + + + Renal Function Panel (07/01/2019 7:41 AM PDT)Only the most recent of 3 results within the time period is included. + + + + + + | [...] | >60Comment: GFR <60: | >60 | [facility] | | | GFR | CHRONIC KIDNEY [...] | | | | | performed at [facility] | | | | | | [facility];[place], [place] | | | | | | [address] | | | | + + + + + + + + | Specimen | + + | | + + + + + + + | Performing | Address | City/State/Zipcode | Phone Number | | Organization | | | | + + + + + | [facility] | [address] | [place] [address] | [phone] | + + + + + CBC [...] [facility] | | | | performed at [facility], [address] | | LABORATORY | | | | [address], | | | | | | [place] [address] | | | | + + + + + + + + | Specimen | + + | | + + + + + + + | Performing | Address | City/State/Zipcode | Phone Number | | Organization | | | | + + + + + | [facility] | [address] | [place] [address] | [phone] | + + + + + Phenytoin Level, Total (06/28/2019 9:43 AM PDT)Only the most recent of 2 results within e time period is included. + + + + + + | [...] [facility] | | | | performed at [facility] | | LABORATORY | | | | [address];[place], [place] | | | | | | [address] | | | | + + + + + + + + | Specimen | + + | Blood | + + + + + + + | Performing | Address | City/State/Zipcode | Phone Number | | Organization | | | | + + + + + | [facility] | [address] | [place] [address] | [phone] | + + + + + POC Glucose (06/28/2019 8:17 AM PDT)Only the most recent of 17 results within the time per iod is included. + + + + + + | Component | Value | Ref Range | Performed | Pathologist | | | | | At | Signature | + + + + + + | Glucose, | 148 (H)Comment: Testing | 65 - 99 mg/dL | [facility] | | | POC | performed at [facility];[address] | | LABORATORY | | | | [address];[place], [place] | | | | | | [address] | | | | + + + + + + + + | Specimen | + + | | + + + + + + + | Performing | Address | City/State/Zipcode | Phone Number | | Organization | | | | + + + + + | [facility] | [address] | [place] [address] | [phone] | + + + + + CBC with Differential (06/28/2019 1:42 AM PDT)Only the most recent of 6 results within the time period is included. + + + + + + | [...] | | | Absolute | performed at [facility], [address] | K/uL | LABORATORY | | | | [address], | | | | | | [place] [address] | | | | + + + + + + + + | Specimen | + + | Blood | + + + + + + + | Performing | Address | City/State/Zipcode | Phone Number | | Organization | | | | + + + + + | [facility] | [address] [facility] | [place] [address] | [phone] | + + + + + Basic Metabolic Panel (06/28/2019 1:42 AM PDT)Only the most recent of 6 results within the time period is included. + + + + + + | [...] | | | | | performed at [facility], [address] | | | | | | [facility], | | | | | | [place] [address] | | | | + + + + + + + + | Specimen | + + | Blood | + + + + + + + | Performing | Address | City/State/Zipcode | Phone Number | | Organization | | | | + + + + + | [facility] | [address] | [place] [address] | [phone] | + + + + + Culture, Blood (06/27/2019 5:05 PM PDT)Only the most recent of 2 results within the time theodora valverde is included. + + + + + + | Component | Value | Ref Range | Performed | Pathologist | | | | | At | Signature | + + + + + + | Special | R.AC | | [facility] | | | Requests | | | LABORATORY | | + + + + + + | Special | Testing performed at | | [facility] | | | Requests | [facility];[address] | | LABORATORY | | | | [address];[place] [address] | | | | + + + + + + | RESULT | NO GROWTH 6 DAYS | | [facility] | | | | | | LABORATORY | | + + + + + + | RESULT | Testing performed at | | [facility] | | | | [facility], [address] [facility] | | LABORATORY | | | | [place] | | | | | | [address]Kyylesq: Testing | | | | | | performed at [facility], [address] | | | | | | [place] | | | | | | [address] | | | | + + + + + + + + | Specimen | + + | Blood - Peripheral | | blood specimen | | (specimen) | + + + + + + + | Performing | Address | City/State/Zipcode | Phone Number | | Organization | | | | + + + + + | [facility] | [address] | [place] [address] | [phone] | + + + + + ECG [...] XR Chest AP Portable (06/26/2019 8:28 AM PDT)Only the most recent of 3 results within the time period is included. + + | Specimen | + + [...] Note | + + | Maximus Bass Results In - 06/26/2019 9:03 AM PDT [...] | | | | Signed by: Daija Rodas, Jose | | Sign Date/Time: 06/26/2019 8:59 AM | + + + +---------+ + + | Performing | Address | City/State/Zipcode | Phone Number | | Organization | | | | + +---------+ + + | [facility] | | | | + +---------+ + + Procalcitonin (06/26/2019 4:23 AM PDT)Only the most recent of 2 results within the time pe jessica is included. + + + + + + | [...] | | | | | | at [facility];[address] [facility] | | | | | | Court;[place] [address] | | | | + + + + + + + + | Specimen | + + | Blood | + + + + + + + | Performing | Address | City/State/Zipcode | Phone Number | | Organization | | | | + + + + + | [facility] | [address] | [place] [address] | [phone] | + + + + + Cortisol, AM (06/26/2019 4:03 AM PDT) + + + + + + | Component | Value | Ref Range | Performed | Pathologist | | | | | At | Signature | + + + + + + | Cortisol AM | 19.9Comment: Testing | 4.3 - 22.4 | [facility] | | | | performed at [facility], [address] | ug/dL | LABORATORY | | | | [address], | | | | | | [place] [address] | | | | + + + + + + + + | Specimen | + + | Blood | + + + + + + + | Performing | Address | City/State/Zipcode | Phone Number | | Organization | | | | + + + + + | [facility] | [address] | [place] [address] | [phone] | + + + + + TSH, Reflex Free T4 (06/26/2019 4:03 AM PDT) + + + + + + | Component | Value | Ref Range | Performed | Pathologist | | | | | At | Signature | + + + + + + | TSH | 0.560Comment: Testing | 0.450 - 5.100 | [facility] | | | | performed at [facility], [address] | uIU/mL | LABORATORY | | | | [address], | | | | | | [place] [address] | | | | + + + + + + + + | Specimen | + + | Blood | + + + + + + + | Performing | Address | City/State/Zipcode | Phone Number | | Organization | | | | + + + + + | [facility] | [address] | [place] [address] | [phone] | + + + + + CT Head wo Contrast (06/25/2019 1:50 PM PDT) + + | Specimen | + + | | + + + + + | Impressions | Performed At | + + + | 1. No acute intracranial findings. 2. Severe left maxillary sinus | [facility] | | opacification. Signed by: Daija John, Bimal Sign | | | Date/Time: 06/25/2019 3:33 [...] | | | + +---------+ + + ECHO Complete (06/25/2019 10:25 AM [...] cm/s | [facility] | | | paulo | | | | | + +---------+ + + + | LVOT peak | 22.71 | cm | [facility] | | | VTI | | | | | + +---------+ + + + | AV peak paulo | 145.49 | cm/s | [facility] [...] [facility] | | | Peak S Paulo | | | | | + +---------+ + + + | Pulm Vein | 46.11 | cm/s | [facility] | | | Peak D Paulo | | | | | + +---------+ [...] | | | + +---------+ + + EEG-Continuous Monitoring (06/24/2019 1:33 PM [...] | | propofol infusion 35 mcg/kg/min (06/24/19 1852) PRN | | | Meds:.acetaminophen, albuterol-ipratropium, Hypoglycemia [...] continuous EEG | | | representing a pbpa-si-ippckjhp encephalopathy. Diffuse beta | | | activity [...] indicated. Bryan Celis MD | | | [facility] | | + + [...] 1314) | | | phenylephrine Stopped (06/23/19 2451) | | | propofol infusion 35 mcg/kg/min (06/24/19 692) PRN | | | Meds:.acetaminophen, albuterol-ipratropium, Hypoglycemia [...] continuous EEG | | | representing a ffgd-hk-vadxgyxf encephalopathy. Diffuse beta | | | activity [...] indicated. Bryan Celis MD | | | [facility] Clinical [facility]physi[facility] | | + + + [...] continuous EEG | | | representing a arrg-po-wndlxwoq encephalopathy. Diffuse beta | | | activity [...] indicated. Bryan Celis MD | | | [facility] Clinical Neurophysiologist | | + + + Phenytoin Level, Total and [...] | | | | | performed at [facility], | | | | | | [address], [address], | | | | | | [place] [address] | | | | + + + + + + + + | Specimen | + + | Blood | + + + + + + + | Performing | Address | City/State/Zipcode | Phone Number | | Organization | | | | + + + + + | [facility] | [address] | [place] [address] | [phone] | + + + + + Lactic Acid (06/23/2019 1:20 PM PDT)Only the most recent of 2 results within the time tawny od is included. + + + + + + | Component | Value | Ref Range | Performed | Pathologist | | | | | At | Signature | + + + + + + | Lactate, | 1.4Comment: Testing | 0.4 - 2.0 | [facility] | | | Serum | performed at [facility];[address] | mmol/L | LABORATORY | | | | [address];[place], [place] | | | | | | [address] | | | | + + + + + + + + | Specimen | + + | Blood | + + + + + + + | Performing | Address | City/State/Zipcode | Phone Number | | Organization | | | | + + + + + | [facility] | [address] | [place] [address] | [phone] | + + + + + Hepatic [...] [facility] | | | | performed at [facility];[address] | | LABORATORY | | | | [address];[place] | | | | | | [address] | | | | + + + + + + + + | Specimen | + + | Blood | + + + + + + + | Performing | Address | City/State/Zipcode | Phone Number | | Organization | | | | + + + + + | [facility] | [address] | [place] [address] | [phone] | + + + + + Blood [...] | | | | | performed at [facility];[address] | | | | [address];[place], [place] | | | | | | [address] | | | | + + + + + + + + | Specimen | + + | | + + + + + + + | Performing | Address | City/State/Zipcode | Phone Number | | Organization | | | | + + + + + | [facility] | [address] | [place] [address] | [phone] | + + + + + EEG (06/23/2019 3:43 AM PDT) + + + | Narrative | Performed At | + + + | Jeana Goldstein, Neurodiagnostic Tech 06/23/2019 3:44 | | | [facility] Neurodiagn[facility] [address] [place] [address] | | | [place] [address] Patient: Steffi Bishop ID: [id number] : | | | 1965 Age: 53 Gender: female Room #: 71442 Physician: | | | Anastasia Arugeta Semiconductor Assembler: Jeana Goldstein Ref. Physician: Cary | | | Eduard SHULTZ Recording Date: 06/23/2019 Duration: 00:31:48 | | | Report Date: 06/23/2019 2:20 AM Medications: Ativan, | | | Keppra 2000mg loaded in ER at [facility], fentanyl, no sedation | | | History: [...] | | | immediately notified to the collision technician provider, Dr. Holland. | | | | | + + + Culture, Respiratory, Lower, Smear (06/23/2019 [...] RESULT | Testing performed at | | [facility] | | | | [facility], [address] [facility] | | LABORATORY | | | | [place] | | | | | | [address]Gkelpkm: Testing | | | | | | performed at [facility], [address] | | | | | | [facility] [address], | | | | | | [place] [address] | | | | + + + + + + + + | Specimen | + + | Body Fluid - Sputum | | specimen obtained by | | aspiration | | (specimen) | + + + + + + + | Performing | Address | City/State/Zipcode | Phone Number | | Organization | | | | + + + + + | [facility] | [address] | [place] [address] | [phone] | + + + + + MRSA [...] | | | | | performed at [facility] | | | | | | [facility];[place], [place] | | | | | | [address] | | | | + + + + + + + + | Specimen | + + | Tissue - Both | | anterior nares (body | | structure) | + + + + + + + | Performing | Address | City/State/Zipcode | Phone Number | | Organization | | | | + + + + + | [facility] | [address] | [place] [address] | [phone] | + + + + + from Last 3 Months Insurance + +--------+ +--------+ +---------+--------+ | Payer | Benefi | Subscriber | Effect | Phone | Address | Type | | | t Plan | ID | flavio | | | | | | / | | Dates | | | | | | Group | | | | | | + +--------+ +--------+ +---------+--------+ | [employer] | [employer]HS | [id number] | | | | Indemn | | SERVICE | YELLOW | | 019-Pr | | | ity | | | HAWK | | esent | | | | + +--------+ +--------+ +---------+--------+ | [employer] | IHS | | | | | Indemn | | SERVICE | YELLOW | | 019-Pr | | | ity | | | HAWK | | esent | | | | + +--------+ +--------+ +---------+--------+ | [employer] | CAREOR | [id number] | | [phone] | | Medica | | HMO | EGON | | 019-Pr | 0 | | id | | | [place] | | esent | | | | | | [place] | | | | | | | | PACIFI | | | | | | | | C CORRECTIONAL SUPERVISOR | | | | | | | | MDCD | | | | | | | | HMO OR | | | | | | + +--------+ +--------+ +---------+--------+ | [employer] | CAREOR | [id number] | 06/22/ | [id number] | | Medica | | HMO | EGON | | 2019-P | 0 | | id | | | [place] | | resent | | | | | | [place] | | | | | | | | PACIFI | | | | | | | | C CORRECTIONAL SUPERVISOR | | | | | | | [...] Person | Self | [birth year] | | [address] | | | al/Binu | | 1965 | [phone] | [place] | | | [place] | | | [address] (Home) | [address] | + +--------+ +--------+ + + | Steffi Bishop | Person | Self | [birth year] | | [address] | | | al/Fam | | 1965 | [phone] | [place] | | | [place] | | | [address] ([place]) | [address] | + +--------+ +--------+ + + Advance Directives + + + + + | Type | Date Recorded | Patient | Explanation | | | | Icing Coater | | + + + + + | Power of | | | | | Drug Department Worker | | | | + + + + + | Advance | 06/23/2019 | | | | Directive | 2:54 PM | | | + + + + + + + + + + | Code Status | Date | Date | Comments | | | Activated | Inactivated | | + + + + + | Full Code | 06/24/2019 | 07/04/2019 | | | | 7:24 PM | 1:04 AM | | + + + + + + + + +---+ | | | | | + + + +---+ | Full Code | 06/22/2019 | 06/24/2019 | | | by default | 11:31 PM | 7:24 PM | | | - TBD | | | | + + + +---+
--- OUTSIDE RECORDS SUMMARY | ~2019-07-24 | XMS | Clinical Summary ---
Demographics + + + | Address | [address] | | | [place] [address] | + + + | Home Phone | | + + + | Preferred Language | Unknown | + + + | Marital Status | Single | + + + | Presybeterian Affiliation | 1041 | + + + | Race | Unknown | + + + | Ethnic Group | Unknown | + + + Author + + + | Author | [facility] | | | and [place] | + + + | Organization | [facility] | | | and [...] Team Providers + +------+ + | Care Patient Care Associate Name | Role | Phone | + [...] Encounter | | Deepak Stanton MD | ([facility]); Generalized | | | | | Beto Kothari MD | tonic-clonic seizure | | 07/03/ | | | Freddy aGstelum MD | ([facility]); H/O ETOH | | 2018 | | | | abuse; Polysubstance | | | | | | abuse ([facility]); | | | | | | Methamphetamine | | | | | | intoxication ([facility]); | | | | | | 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[facility]); | | | | | | Post-ictal state | | | | | | ([facility]); Altered | | | | | | mental status, | | | | | | unspecified altered | | | | | | mental status type; | | | | | | Leander coma scale | | | | | | total score 3-8, at | | | | | | hospital admission | | | | | | ([facility]); Hypotension, | | | | | | [...] 2019 | Visit | | [address] [facility] | | | | | | [address] [place], | | | | | | [place] [address] | | | | | | [phone] | | | | | | | [...] [facility] | | | | performed at [facility];[address] | mmol/L | LABORATORY | | | | [address];[place], [place] | | | | | | [address] | | | | + + + + + + + + | Specimen | + + | Blood | + + + + + + + | Performing | Address | City/State/Zipcode | Phone Number | | Organization | | | | + + + + + | [facility] | [address] | [place] [address] | [phone] | + + + + + Phosphorus [...] Testing | 2.3 - 4.8 mg/dL | [facility] | | | | performed at [facility], [address] | | LABORATORY | | | | [place] [place], | | | | | | [place] [address] | | | | + + + + + + + + | Specimen | + + | Blood | + + + + + + + | Performing | Address | City/State/Zipcode | Phone Number | | Organization | | | | + + + + + | [facility] | [address] | [place] [address] | [phone] | + + + + + Magnesium [...] [facility] | | | | performed at [facility], [address] | | LABORATORY | | | | [address], | | | | | | [place] [address] | | | | + + + + + + + + | Specimen | + + | Blood | + + + + + + + | Performing | Address | City/State/Zipcode | Phone Number | | Organization | | | | + + + + + | [facility] | [address] | [place] [address] | [phone] | + + + + + Renal [...] | >60Comment: GFR <60: | >60 | [facility] | | | GFR | [...] | | | | | performed at [facility] | | | | | | [facility];[place], [place] | | | | | | [address] | | | | + + + + + + + + | Specimen | + + | | + + + + + + + | Performing | Address | City/State/Zipcode | Phone Number | | Organization | | | | + + + + + | [facility] | [address] | [place] [address] | [phone] | + + + + + CBC [...] [facility] | | | | performed at [facility], [address] | | LABORATORY | | | | [address] [place], | | | | | | [place] [address] | | | | + + + + + + + + | Specimen | + + | | + + + + + + + | Performing | Address | City/State/Zipcode | Phone Number | | Organization | | | | + + + + + | [facility] | [address] | [place] [address] | [phone] | + + + + + Phenytoin [...] [facility] | | | | performed at [facility] | | LABORATORY | | | | [address];[place], [place] | | | | | | [address] | | | | + + + + + + + + | Specimen | + + | Blood | + + + + + + + | Performing | Address | City/State/Zipcode | Phone Number | | Organization | | | | + + + + + | [facility] | [address] | [place] [address] | [phone] | + + + + + POC [...] Testing | 65 - 99 mg/dL | [facility] | | | POC | performed at [facility];[address] | | LABORATORY | | | | [address];[place], [place] | | | | | | [address] | | | | + + + + + + + + | Specimen | + + | | + + + + + + + | Performing | Address | City/State/Zipcode | Phone Number | | Organization | | | | + + + + + | [facility] | [address] | [place] [address] | [phone] | + + + + + CBC [...] | | | Absolute | performed at [facility], [address] | K/uL | LABORATORY | | | | [address], | | | | | | [place] [address] | | | | + + + + + + + + | Specimen | + + | Blood | + + + + + + + | Performing | Address | City/State/Zipcode | Phone Number | | Organization | | | | + + + + + | [facility] | [address] [facility] | [place] [address] | [phone] | + + + + + Basic [...] | | | | | performed at [facility], [address] | | | | | | [facility], | | | | | | [place] [address] | | | | + + + + + + + + | Specimen | + + | Blood | + + + + + + + | Performing | Address | City/State/Zipcode | Phone Number | | Organization | | | | + + + + + | [facility] | [address] | [place] [address] | [phone] | + + + + + Culture, Blood (06/27/2019 5:05 PM PDT)Only the most recent of 2 results within the time theodora valverde is included. + + + + + + | Component | Value | Ref Range | Performed | Pathologist | | | | | At | Signature | + + + + + + | Special | R.AC | | [facility] | | | Requests | | | LABORATORY | | + + + + + + | Special | Testing performed at | | [facility] | | | Requests | [facility];[address] | | LABORATORY | | | | [address];[place] [address] | | | | + + + + + + | RESULT | NO GROWTH 6 DAYS | | [facility] | | | | | | LABORATORY | | + + + + + + | RESULT | Testing performed at | | [facility] | | | | [facility], [address] [facility] | | LABORATORY | | | | [place] | | | | | | [address]Pqgmonq: Testing | | | | | | performed at [facility], [address] | | | | | | [place] | | | | | | [address] | | | | + + + + + + + + | Specimen | + + | Blood - Peripheral | | blood specimen | | (specimen) | + + + + + + + | Performing | Address | City/State/Zipcode | Phone Number | | Organization | | | | + + + + + | [facility] | [address] | [place] [address] | [phone] | + + + + + ECG [...] | | | | | | at [facility];[address] [facility] | | | | | | Court;[place] [address] | | | | + + + + + + + + | Specimen | + + | Blood | + + + + + + + | Performing | Address | City/State/Zipcode | Phone Number | | Organization | | | | + + + + + | [facility] | [address] | [place] [address] | [phone] | + + + + + Cortisol, AM (06/26/2019 4:03 AM PDT) + + + + + + | Component | Value | Ref Range | Performed | Pathologist | | | | | At | Signature | + + + + + + | Cortisol AM | 19.9Comment: Testing | 4.3 - 22.4 | [facility] | | | | performed at [facility], [address] | ug/dL | LABORATORY | | | | [place] [place], | | | | | | [place] [address] | | | | + + + + + + + + | Specimen | + + | Blood | + + + + + + + | Performing | Address | City/State/Zipcode | Phone Number | | Organization | | | | + + + + + | [facility] | [address] | [place] [address] | [phone] | + + + + + [facility], [...] [place], | | | | | | [place] [address] | | | | + + + + + + + + | Specimen | + + | Blood | + + + + + + + | Performing | Address | City/State/Zipcode | Phone Number | | Organization | | | | + + + + + | [facility] | [address] | [place] [address] | [phone] | + + + + + CT [...] | | propofol infusion 35 mcg/kg/min (06/24/19 2722) PRN | | | Meds:.acetaminophen, albuterol-ipratropium, Hypoglycemia [...] continuous EEG | | | representing a yaim-dv-cfunokdj encephalopathy. Diffuse beta | | | activity [...] indicated. Bryan Celis MD | | | [facility] Clinical Neurophysiologist | | + + + [...] 1314) | | | phenylephrine Stopped (06/23/19 9935) | | | propofol infusion 35 mcg/kg/min (06/24/19 112) PRN | | | Meds:.acetaminophen, albuterol-ipratropium, Hypoglycemia [...] continuous EEG | | | representing a dhdj-ey-ppctrnof encephalopathy. Diffuse beta | | | activity [...] continuous EEG | | | representing a lpgc-fm-yazwynve encephalopathy. Diffuse beta | | | activity [...] | | | | | performed at [facility], | | | | | | [address], [address], | | | | | | [place] [address] | | | | + + + + + + + + | Specimen | + + | Blood | + + + + + + + | Performing | Address | City/State/Zipcode | Phone Number | | Organization | | | | + + + + + | [facility] | [address] | [place] [address] | [phone] | + + + + + Lactic [...] | | | Serum | performed at [facility];[address] | mmol/L | LABORATORY | | | | [address];[place], [place] | | | | | | [address] | | | | + + + + + + + + | Specimen | + + | Blood | + + + + + + + | Performing | Address | City/State/Zipcode | Phone Number | | Organization | | | | + + + + + | [facility] | [address] | [place] [address] | [phone] | + + + + + Hepatic [...] [facility] | | | | performed at [facility];[address] | | LABORATORY | | | | [address];[place] | | | | | | [address] | | | | + + + + + + + + | Specimen | + + | Blood | + + + + + + + | Performing | Address | City/State/Zipcode | Phone Number | | Organization | | | | + + + + + | [facility] | [address] | [place] [address] | [phone] | + + + + + Blood [...] | | | | | performed at [facility];[address] | | | [address];[place], [place] | | | | | | [address] | | | | + + + + + + + + | Specimen | + + | | + + + + + + + | Performing | Address | City/State/Zipcode | Phone Number | | Organization | | | | + + + + + | [facility] | [address] | [place] [address] | [phone] | + + + + + EEG (06/23/2019 3:43 AM PDT) + + + | Narrative | Performed At | + + + | Jeana Goldstein, Neurodiagnostic Tech 06/23/2019 3:44 | | | [facility] [address] [place] [address] | | | [place] [address] Patient: Steffi Bishop ID: [id number] : | | | 1965 Age: 53 Gender: female Room #: [id number] Physician: | | | Anastasia Argueta Financial Reporting Advisor: Jeana Goldstein Ref. Physician: Cary | | | Eduard SHULTZ Recording Date: 06/23/2019 Duration: 00:31:48 | | | Report Date: 06/23/2019 2:20 AM Medications: Ativan, | | | Keppra 2000mg loaded in ER at [place], fentanyl, no sedation | | | History: [...] | | | immediately notified to the auto suspension and steering mechanic provider, Dr. Holland. | | | | [...] RESULT | Testing performed at | | [facility] | | | | [facility], [address] | | LABORATORY | | | | [place] | | | | | | [address]Lrvpkbo: Testing | | | | | | performed at [facility], [address] | | | | | | [address] [facility] [address], | | | | | | [place] [address] | | | | + + + + + + + + | Specimen | + + | Body Fluid - Sputum | | specimen obtained by | | aspiration | | (specimen) | + + + + + + + | Performing | Address | City/State/Zipcode | Phone Number | | Organization | | | | + + + + + | [facility] | [address] | [place] [address] | [phone] | + + + + + MRSA [...] | | | | | performed at [facility] | | | | | | [facility];[place], [place] | | | | | | [address] | | | | + + + + + + + + | Specimen | + + | Tissue - Both | | anterior nares (body | | structure) | + + + + + + + | Performing | Address | City/State/Zipcode | Phone Number | | Organization | | | | + + + + + | [facility] | [address] | [place] [address] | [phone] | + + + + + from [...] | | + +--------+ +--------+ +---------+--------+ | [facility] | IHS | [id number] | | | | Indemn | | SERVICE | YELLOW | | 019-Pr | | | ity | | | HAWK | | esent | | | | + +--------+ +--------+ +---------+--------+ | [facility] | IHS | | | | | Indemn | | SERVICE | YELLOW | | 019-Pr | | | ity | | | HAWK | | esent | | | | + +--------+ +--------+ +---------+--------+ | [employer] | CAREOR | [id number] | | [phone] | | Medica | | HMO | EGON | | 019-Pr | 0 | | id | | | [place]UM[place] | | esent | | | | | | [place] | | | | | | | | PACIFI | | | | | | | | C SWINE NUTRITIONIST | | | | | | | | MDCD | | | | | | | | HMO [place] | | | | | | + +--------+ +--------+ +---------+--------+ | [employer] | CAREOR | [id number] | 06/22/ | [id number] | | Medica | | HMO | EGON | | 2019-P | 0 | | id | | | [place] | | resent | | | | | | [place] | | | | | | | | PACIFI | | | | | | | | C SWINE NUTRITIONIST | | | | | | | [...] Person | Self | [birth year] | | [address] | | | al/Binu | | 1965 | [phone] | [place] | | | [place] | | | [address] (Home) | [address] | + +--------+ +--------+ + + | Steffi Bishop | Person | Self | [birth year] | | [address] | | | al/Fam | | 1965 | [phone] | [place] | | | [place] | | | [address] ([place]) | [address] | + +--------+ +--------+ + + Advance Directives + + + + + | Type | Date Recorded | Patient | Explanation | | | | Social Media Editor | | + + + + + | Power of | | | | | Composite Bond Worker | | | | + + [...]
--- OUTSIDE RECORDS SUMMARY | ~2019-07-24 | XMS | Encounter Summary ---
Demographics + + + | Address | [address] | | | [place] [address] | + + + | Home Phone [...] + + + | Author | [facility] | | | and [place] | + + + | Organization | [facility] | | [...] Team Providers + +------+ + | Care Assistant Department Manager Name | Role | Phone | + +------+ + PCP | Unavailable | + +------+ + Encounter Details +--------+ + + + + | Date | Type | Department | Care Team | Description | +--------+ + + + + | 08/18/ | Hospital | [facility] | Conversion | Pain | | 2013 | Encounter | CONVERSION [address] | Transaction, | | | | | [address] | Provider Unknown | | | | | [place] | | | | | | [address] | (Fax) | | | | | [phone] | | | +--------+ + + + [...] [place], | | | | | | [place] [address] | | | | | | [phone] | | | | | | | [...]
--- OUTSIDE RECORDS SUMMARY | ~2019-07-24 | XMS | Clinical Summary ---
Demographics + + + | Address | [address] | | | [place] [address] | + + + | Home Phone | | + + + | Preferred Language | Unknown | + + + | Marital Status | | + + + | Buddhist Affiliation | 1041 | + + + | Race | Unknown | + + + | Ethnic Group | Unknown | + + + Author + + + | Author | [facility] (Historical as of | | | 04-22-19) | + + + | Organization | [facility] (Historical as of | | | 04-22-19) [...] Team Providers + +------+ + | Care Director Of Operations For Therapy Name | Role | Phone | + [...]
--- OUTSIDE RECORDS SUMMARY | ~2019-07-24 | XMS | Encounter Summary ---
Demographics + + + | Address | [address] | | | [place] [address] | + + + | Home Phone | | + + + | Preferred Language | Unknown | + + + | Marital Status | Single | + + + | Voodoo Affiliation | 1041 | + + + [...] Team Providers + +------+ + | Care Shipyard Painter Name | Role | Phone | + +------+ + PCP | Unavailable | + +------+ + Encounter Details +--------+ + + + + | Date | Type | Department | Care Team | Description | +--------+ + + + + | 08/18/ | Hospital | [facility] IP | Conversion | Pain | | 2013 | Encounter | CONVERSION [address] | Transaction, | | | | | [address] | Provider Unknown | | | | | [place] | | | | | | [address] | (Fax) | | | | | [phone] | | | +--------+ + + + [...] [place], | | | | | | [place] [address] | | | | | | [phone] | | | | | | | [...]
--- OUTSIDE RECORDS SUMMARY | ~2019-07-24 | XMS | Clinical Summary ---
Demographics + + + | Address | [address] | | | [place] [address] | + + + | Home Phone | | + + + | Preferred Language | Unknown | + + + | Marital Status | Single | + + + | Buddhist Affiliation | 1041 | + + + | Race | Unknown | + + + | Ethnic Group | Unknown | + + + Author + + + | Author | [facility] | | | and [place] | + + + | Organization | [facility] | | | [...] Providers + +------+ + | Care Director Informatics Name | Role | Phone | + [...] Encounter | | Deepak Stanton MD | ([facility]); Generalized | | | | | Beto Kothari MD | tonic-clonic seizure | | 07/03/ | | | Freddy Gastelum MD | ([facility]); H/O ETOH | | 2018 | | | | abuse; Polysubstance | | | | | | abuse ([facility]); | | | | | | Methamphetamine | | | | | | intoxication ([facility]); | | | | | | 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[facility]); | | | | | | Post-ictal state | | | | | | ([facility]); Altered | | | | | | mental status, | | | | | | unspecified altered | | | | | | mental status type; | | | | | | Paisley coma scale | | | | | | total score 3-8, at | | | | | | hospital admission | | | | | | ([facility]); Hypotension, | | | | | [...] 2019 | Visit | | [address] [facility] | | | | | | [address], | | | | | | [place] [address] | | | | | | [phone] | | | | | | | [...] [facility] | | | | performed at [facility];[address] | mmol/L | LABORATORY | | | | [address];[place], [place] | | | | | | [address] | | | | + + + + + + + + | Specimen | + + | Blood | + + + + + + + | Performing | Address | City/State/Zipcode | Phone Number | | Organization | | | | + + + + + | [facility] | [address] | [place] [address] | [phone] | + + + + + Phosphorus [...] Testing | 2.3 - 4.8 mg/dL | [facility] | | | | performed at [facility], [address] | | LABORATORY | | | | [place], | | | | | | [place] [address] | | | | + + + + + + + + | Specimen | + + | Blood | + + + + + + + | Performing | Address | City/State/Zipcode | Phone Number | | Organization | | | | + + + + + | [facility] | [address] | [place] [address] | [phone] | + + + + + Magnesium [...] | | | | | [place] [address] | | | | + + + + + + + + | Specimen | + + | Blood | + + + + + + + | Performing | Address | City/State/Zipcode | Phone Number | | Organization | | | | + + + + + | [facility] | [address] | [place] [address] | [phone] | + + + + + Renal [...] | >60Comment: GFR <60: | >60 | [facility] | | | GFR | CHRONIC KIDNEY [...] | | | | | performed at [facility] | | | | | | [facility];[place], [place] | | | | | | [address] | | | | + + + + + + + + | Specimen | + + | | + + + + + + + | Performing | Address | City/State/Zipcode | Phone Number | | Organization | | | | + + + + + | [facility] | [address] | [place] [address] | [phone] | + + + + + CBC [...] | | | | | [place] [address] | | | | + + + + + + + + | Specimen | + + | | + + + + + + + | Performing | Address | City/State/Zipcode | Phone Number | | Organization | | | | + + + + + | [facility] | [address] | [place] [address] | [phone] | + + + + + Phenytoin [...] [facility] | | | | performed at [facility] | | LABORATORY | | | | [address];[place], [place] | | | | | | [address] | | | | + + + + + + + + | Specimen | + + | Blood | + + + + + + + | Performing | Address | City/State/Zipcode | Phone Number | | Organization | | | | + + + + + | [facility] | [address] | [place] [address] | [phone] | + + + + + POC [...] Testing | 65 - 99 mg/dL | [facility] | | | POC | performed at [facility];[address] | | LABORATORY | | | | [address];[place], [place] | | | | | | [address] | | | | + + + + + + + + | Specimen | + + | | + + + + + + + | Performing | Address | City/State/Zipcode | Phone Number | | Organization | | | | + + + + + | [facility] | [address] | [place] [address] | [phone] | + + + + + CBC [...] | | | | | [place] [address] | | | | + + + + + + + + | Specimen | + + | Blood | + + + + + + + | Performing | Address | City/State/Zipcode | Phone Number | | Organization | | | | + + + + + | [facility] | [address] [facility] | [place] [address] | [phone] | + + + + + Basic [...] W | | | | | | [facility], | | | | | | [place] [address] | | | | + + + + + + + + | Specimen | + + | Blood | + + + + + + + | Performing | Address | City/State/Zipcode | Phone Number | | Organization | | | | + + + + + | [facility] | [address] | [place] [address] | [phone] | + + + + + Culture, Blood (06/27/2019 5:05 PM PDT)Only the most recent of 2 results within the time theodora valverde is included. + + + + + + | Component | Value | Ref Range | Performed | Pathologist | | | | | At | Signature | + + + + + + | Special | R.AC | | [facility] | | | Requests | | | LABORATORY | | + + + + + + | Special | Testing performed at | | [facility] | | | Requests | [facility];[address] | | LABORATORY | | | | [address];[place] [address] | | | | + + + + + + | RESULT | NO GROWTH 6 DAYS | | [facility] | | | | | | LABORATORY | | + + + + + + | RESULT | Testing performed at | | [facility] | | | | [facility], [address] [facility] | | LABORATORY | | | | [place] | | | | | | [address]Tpsobqu: Testing | | | | | | performed at [facility], [address] | | | | | | [place] | | | | | | [address] | | | | + + + + + + + + | Specimen | + + | Blood - Peripheral | | blood specimen | | (specimen) | + + + + + + + | Performing | Address | City/State/Zipcode | Phone Number | | Organization | | | | + + + + + | [facility] | [address] | [place] [address] | [phone] | + + + + + ECG [...] | | | | | | at [facility];[address] [facility] | | | | | | Court;[place] [address] | | | | + + + + + + + + | Specimen | + + | Blood | + + + + + + + | Performing | Address | City/State/Zipcode | Phone Number | | Organization | | | | + + + + + | [facility] | [address] | [place] [address] | [phone] | + + + + + Cortisol, AM (06/26/2019 4:03 AM PDT) + + + + + + | Component | Value | Ref Range | Performed | Pathologist | | | | | At | Signature | + + + + + + | Cortisol AM | 19.9Comment: Testing | 4.3 - 22.4 | [facility] | | | | performed at [facility], [address] | ug/dL | LABORATORY | | | | [address], | | | | | | [place] [address] | | | | + + + + + + + + | Specimen | + + | Blood | + + + + + + + | Performing | Address | City/State/Zipcode | Phone Number | | Organization | | | | + + + + + | [facility] | [address] | [place] [address] | [phone] | + + + + + [facility], [...] [place], | | | | | | [place] [address] | | | | + + + + + + + + | Specimen | + + | Blood | + + + + + + + | Performing | Address | City/State/Zipcode | Phone Number | | Organization | | | | + + + + + | [facility] | [address] | [place] [address] | [phone] | + + + + + CT [...] | | propofol infusion 35 mcg/kg/min (06/24/19 3492) PRN | | | Meds:.acetaminophen, albuterol-ipratropium, Hypoglycemia [...] continuous EEG | | | representing a hbdv-xm-kwvaqtim encephalopathy. Diffuse beta | | | activity [...] indicated. Bryan Celis MD | | | [facility] Clinical Neurophysiologist | | + + + [...] 1314) | | | phenylephrine Stopped (06/23/19 7032) | | | propofol infusion 35 mcg/kg/min (06/24/19 047) PRN | | | Meds:.acetaminophen, albuterol-ipratropium, Hypoglycemia [...] continuous EEG | | | representing a iwyp-pg-rxrqibaf encephalopathy. Diffuse beta | | | activity [...] continuous EEG | | | representing a pxfe-ez-jwmdyxvo encephalopathy. Diffuse beta | | | activity [...] | | | | | performed at [facility], | | | | | | [address], [address], | | | | | | [place] [address] | | | | + + + + + + + + | Specimen | + + | Blood | + + + + + + + | Performing | Address | City/State/Zipcode | Phone Number | | Organization | | | | + + + + + | [facility] | [address] | [place] [address] | [phone] | + + + + + Lactic [...] | | | Serum | performed at [facility];[address] | mmol/L | LABORATORY | | | | [address];[place], [place] | | | | | | [address] | | | | + + + + + + + + | Specimen | + + | Blood | + + + + + + + | Performing | Address | City/State/Zipcode | Phone Number | | Organization | | | | + + + + + | [facility] | [address] | [place] [address] | [phone] | + + + + + Hepatic [...] [facility] | | | | performed at [facility];[address] | | LABORATORY | | | | [address];[place] | | | | | | [address] | | | | + + + + + + + + | Specimen | + + | Blood | + + + + + + + | Performing | Address | City/State/Zipcode | Phone Number | | Organization | | | | + + + + + | [facility] | [address] | [place] [address] | [phone] | + + + + + Blood [...] | | | | | performed at [facility];[address] | | | [address];[place], [place] | | | | | | [address] | | | | + + + + + + + + | Specimen | + + | | + + + + + + + | Performing | Address | City/State/Zipcode | Phone Number | | Organization | | | | + + + + + | [facility] | [address] | [place] [address] | [phone] | + + + + + EEG (06/23/2019 3:43 AM PDT) + + + | Narrative | Performed At | + + + | Jeana Goldstein, Neurodiagnostic Tech 06/23/2019 3:44 | | | [facility] [address] [place] [address] | | | [place] [address] Patient: Steffi Bishop ID: [id number] : | | | 1965 Age: 53 Gender: female Room #: 73772 Physician: | | | Anastasia Argueta Emergency Services Professional: Jeana Goldstein Ref. Physician: Cary | | | Eduard SHULTZ Recording Date: 06/23/2019 Duration: 00:31:48 | | | Report Date: 06/23/2019 2:20 AM Medications: Ativan, | | | Keppra 2000mg loaded in ER at [place], fentanyl, no sedation | | | History: [...] | | | immediately notified to the astronomy instructor provider, Dr. Holland. | | | | [...] RESULT | Testing performed at | | [facility] | | | | [facility], [address] [facility] | | LABORATORY | | | | [place] | | | | | | [address]Moglqkw: Testing | | | | | | performed at [facility], [address] | | | | | | [facility] [address], | | | | | | [place] [address] | | | | + + + + + + + + | Specimen | + + | Body Fluid - Sputum | | specimen obtained by | | aspiration | | (specimen) | + + + + + + + | Performing | Address | City/State/Zipcode | Phone Number | | Organization | | | | + + + + + | [facility] | [address] | [place] [address] | [phone] | + + + + + MRSA [...] | | | | | performed at [facility] | | | | | | [facility];[place], [place] | | | | | | [address] | | | | + + + + + + + + | Specimen | + + | Tissue - Both | | anterior nares (body | | structure) | + + + + + + + | Performing | Address | City/State/Zipcode | Phone Number | | Organization | | | | + + + + + | [facility] | [address] | [place] [address] | [phone] | + + + + + from [...] | | + +--------+ +--------+ +---------+--------+ | [facility] | IHS | [id number] | | | | Indemn | | SERVICE | YELLOW | | 019-Pr | | | ity | | | HAWK | | esent | | | | + +--------+ +--------+ +---------+--------+ | [facility] | IHS | | | | | Indemn | | SERVICE | YELLOW | | 019-Pr | | | ity | | | HAWK | | esent | | | | + +--------+ +--------+ +---------+--------+ | [employer] | CAREOR | [id number] | | [phone] | | Medica | | HMO | EGON | | 019-Pr | 0 | | id | | | [place] | | esent | | | | | | [place] | | | | | | | | PACIFI | | | | | | | | C BLENDING KETTLE TENDER | | | | | | | | MDCD | | | | | | | | HMO OR | | | | | | + +--------+ +--------+ +---------+--------+ | [employer] | CAREOR | [id number] | 06/22/ | [id number] | | Medica | | HMO | EGON | | 2019-P | 0 | | id | | | [place] | | resent | | | | | | [place] | | | | | | | | PACIFI | | | | | | | | C BLENDING KETTLE TENDER | | | | | | | [...] Person | Self | [birth year] | | [address] | | | al/Binu | | 1965 | [phone] | [place] | | | [place] | | | [address] (Home) | [address] | + +--------+ +--------+ + + | Steffi Bishop | Person | Self | [birth year] | | [address] | | | al/Fam | | 1965 | [phone] | [place] | | | [place] | | | [place] ([place]) | [address] | + +--------+ +--------+ + + Advance Directives + + + + + | Type | Date Recorded | Patient | Explanation | | | | Verification Lead | | + + + + + | Power of | | | | | Pipe Stem Aligner | | | | + + + [...]
--- OUTSIDE RECORDS SUMMARY | ~2019-07-24 | XMS | Clinical Summary ---
Demographics + + + | Address | [address] | | | [place] [address] | + + + | Home Phone | | + + + | Preferred Language | Unknown | + + + | Marital Status | | + + + | Taoism Affiliation | 1041 | + + + | Race | Unknown | + + + | Ethnic Group | Unknown | + + + Author + + + | Author | [facility] (Historical as of | | | 04-22-19) | + + + | Organization | [facility] (Historical as of | | | 04-22-19) [...] Team Providers + +------+ + | Care Auto Air Conditioning Apprentice Name | Role | Phone | + [...]
--- OUTSIDE RECORDS SUMMARY | ~2019-07-24 | XMS | Encounter Summary ---
Demographics + + + | Address | [address] | | | [place] [address] | + + + | Home Phone [...] Team Providers + +------+ + | Care Insurance Account Representative Name | Role | Phone | + [...] | | | | | (FORMERLY [facility]) | COURT | | | | | | | [place], [place] | | | | | | | [address] | | | | | | | Phone: | | | | | | | [phone] | | | | | | | Fax: | | | | | | | [phone] | | + + + + + [...] + + | 06/22/ | Hospital | [facility] | Cary Chapa DO | Status epilepticus | | 2019 - | Encounter | [facility] | [address] | ([facility]); Generalized | | | | CARE FLOOR [address] | [place] [address] | tonic-clonic seizure | | 07/03/ | | [address] | [phone] | ([facility]); H/O ETOH | | 2019 | | [place], [place] | | abuse; Polysubstance | | | | [address] | Deepak Stanton MD | abuse ([facility]); | | | | [phone] | [address] | Methamphetamine | | | | | [place] [address] | intoxication ([facility]); | | | | | 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 [facility] Service: Hospitalist Discharge Summary [...] coursing through the mediastinum below the acquired anfdk-ue-yqnb into the upper abdomen. Overlying EKG leads [...] and drug abusewho presents withstatus epilepticus. The [facility] were rafi led and patient was [...] (post-traumatic stress disorder) Status epilepticus ([facility]) 06/22/2019 Past Surgical History: Procedure Laterality Date [...] Procedure Component Value Units Date/Time Culture, Blood [[id number]] Collected: 06/27/19 170 Order Status: Completed Lab Status: Preliminary result Updated: 06/29/19726 Specimen: Peripheral Blood Special Requests R.AC Special Requests Testing performed at [facility];[address] [place] [address] RESULT NO GROWTH 2 DAYS RESULT Testing performed at [facility], [address] [place] [address] Comment: Testing performed at [facility], [address] [address] Culture, Blood [[id number]] Collected: 06/27/191656 Order Status: Completed Lab Status: Preliminary result Updated: 06/29/19726 Specimen: Peripheral Blood Special Requests L.AC Special Requests Testing performed at [facility];[address] [place] [address] RESULT NO GROWTH 2 DAYS RESULT Testing performed at [facility], [address] [place] [address] Comment: Testing performed at [facility], [address] [address] Disposition: mcc Condition: Stable Code Status: Full Code Discharge Procedure Orders Referral to Home Health Referral Priority: Routine Referral Type: Evaluate & Treat Referral Reason: Specialty Services Required Requested Specialty: Home Health Services Number of Visits Requested: 1 Follow up: RAFFI Ji [id number] [place] [id number] Follow up on 07/04 at 1 PM. [facility] [address] [place] [address] Main Schedule an appointment as soon as possible for a visit intake [employer] [place] [facility] [address] [place] [address], [place] [address] Main Go on 07/20/2019 intake; Please arrive at 8:30 a.m. to complete paperwork. Appointment will begin at 9:00 a. m. Anat Pickett, RAFFI [address] [place] [address] Schedule an appointment as soon as possible for a visit in 1 week [facility] [address] [place] [id number] Discharge Medications New Medications Details midodrine 10 [...] and ask for a referral to an sales specialist for a n evaluation. Look in [...] one of these national groups: ? National [place] on Alcoholism and Drug Dependence 834-713-7466 ? National Drug and Alcohol Treatment Referral Service 153-463-GKCV ([phone]) Date Last Reviewed: 10/07/201619993115-[address] [employer] [place] [address]. All righ ts reserved. This information is [...] more often than directed. Talk to your lamina searcher regarding the use of this medicine in children. While this medici ne may be prescribed for selected conditions, precautions do apply. What side effects may I notice from receiving this medicine? Side effects that you should report to your doctor or health acute care certified nursing assistant as soon as p ossible: allergic reactions like skin rash, itching or hives, swelling of the face, lips, or tong ue chest tightness fast, irregular heartbeat irritable, restless nausea, vomiting sweating unusually bleeding or bruising Side effects that usually do not require medical attention (report to your doctor or health acute care certified nursing assistant if they continue or are bothersome): sneezing [...] pharmacist, or health care provider. Copyright 2019 [employer] Phenytoin Does this test have other names? [...] Before taking a new prescription or an utbq-rqr-gkt nter medicine, it's best to check about [...] and any illicit drugs you may use. [id number] [employer]. [address] [place] [address]. All righ ts reserved. This information is not intended as a substitute for professional medical care. Always follow your healthcare professional's instructions. Midodrine tablets Brand Names: Orvaten, ProAmatine What is this medicine? MIDODRINE (CO sloan dreen) is used to treat low [...] on your doctor's advice. Talk to your lamina searcher regarding the use of this medicine in children. Special care may be needed. What side effects may I notice from receiving this medicine? Side effects that you should report to your doctor or health acute care certified nursing assistant as soon as p ossible: awareness of heart beating blurred vision headache irregular heartbeat, palpitations, or chest pain pounding in the ears skin rash, hives Side effects that usually do not require medical attention (report to your doctor or health acute care certified nursing assistant if they continue or are bothersome): change [...] this medicine? Visit your doctor or health acute care certified nursing assistant for regular checks on your progress. You [...] medicine without asking your doctor or health acute care certified nursing assistant for advice. Some ingredients may increase yo [...] note might be different from sofi borden. [facility] Service:hospitalist Progress Note Hospital Day: LOS: 10 days SUBJECTIVE Patient Summary: refer to H&P and consult note for details Per ICU 53 y.o.femalewith significant past medical history of PTSD, depression, alcohol abuse, at least one seizure (is listed as the reaction to aspirin in her allergies), hepatitis C vi ral infection and drug abusewho presents withstatus epilepticus. The [facility] were rafi led and patient was [...] coursing through the mediastinum below the acquired cbchg-mb-pipg into the upper abdomen. Overlying EKG leads [...] recently she came to the hospital at [facility]. CT scan was done over there [...] Beto Bermeo MD - 9:27 AM PDT [facility] Service:hospitalist Progress Note Hospital Day: LOS: 9 days SUBJECTIVE Patient Summary: refer to H&P and consult note for details Per ICU 53 y.o.femalewith significant past medical history of PTSD, depression, alcohol abuse, at least one seizure (is listed as the reaction to aspirin in her allergies), hepatitis C vi ral infection and drug abusewho presents withstatus epilepticus. The [facility] were rafi led and patient was [...] coursing through the mediastinum below the acquired vkrgx-fu-ndso into the upper abdomen. Overlying EKG leads [...] recently she came to the hospital at [facility]. CT scan was done over there [...] healing. Well supported by ruben sweeney in [place]. Drafter provided compassionate, non-judgmental presence, affirmed and e ncouraged expression of emotion, explored the link between her shame and her relationship wi th God, facilitated discussion regarding suffering, Divine trung, and self-compassion, refra med her pain into a source of compassion for the world, provided a Bible per request, and of fered prayer which was accepted. Patient expressed appreciation for parole supervisor visit and state d that a light of hope was sparked in her soul. rrCarla RN - 06/30/2019 4:07 AM PDTVSS throughout shif t. MAP >65. CIWA neg. Pt ambulating to bathroom and c/o no pain. Hourly rounding unevent ful. Chart check complete. Carla Shaver RN Beto Bermeo MD - 2018 8:32 AM PDT [facility] Service:hospitalist Progress Note Hospital Day: LOS: 7 days SUBJECTIVE Patient Summary: refer to H&P and consult note for details Per ICU 53 y.o.femalewith significant past medical history of PTSD, depression, alcohol abuse, at least one seizure (is listed as the reaction to aspirin in her allergies), hepatitis C vi ral infection and drug abusewho presents withstatus epilepticus. The [facility] were rafi led and patient was [...] coursing through the mediastinum below the acquired dzkmk-ne-banl into the upper abdomen. Overlying EKG leads [...] recently she came to the hospital at [facility]. CT scan was done over there [...] Fletcher R N - 06/28/2019 9:46 PM [id number]: Notified Dr. Campo of potassium of 3.5, per the protocol if pt needs another replacement, notify provider. Dr. Campo ok with giving the recommended 40 mEq of oral potassium. VSS throughout shift. Pt's MAP remained >65. Hourly rounding uneventful. Chart check complete. Carla Shaver, RN Freddy Edwards MD - 1 2:54 PM PDT [facility] Adult Hospitalist Progress Note Hospital Day: 6 Patient Summary: Briefly, 53-year-old female with extensive past medical history most significant for PTSD, depression, active alcohol abuse, active drug abuse, hepatitis C and other chronic comorbid ities who presented to [facility] ER unresponsive with generalized tonic-clonic [...] Bermeo MD - 06/27/2019 9:31 AM PDT [facility] Service:hospitalist Progress Note Hospital Day: LOS: 5 days SUBJECTIVE Patient Summary: refer to H&P and consult note for details Per ICU 53 y.o.femalewith significant past medical history of PTSD, depression, alcohol abuse, at least one seizure (is listed as the reaction to aspirin in her allergies), hepatitis C vi ral infection and drug abusewho presents withstatus epilepticus. The [facility] were rafi led and patient was [...] coursing through the mediastinum below the acquired ybmct-kd-qoua into the upper abdomen. Overlying EKG leads [...] recently she came to the hospital at [facility]. CT scan was done over there [...] Steffi Bishop AGE/SEX: 53 y.o. female ROOM: [facility]/9115- : 1965 PCP: RAFFI Ji ADMIT DATE: 06/22/2019 TODAY'S DATE: 06/26/2019 Hospital Day/Hospital Course: LOS: 4 days Per ICU 53 y.o.femalewith significant past medical history of PTSD, depression, alcohol abuse, at least one seizure (is listed as the reaction to aspirin in her allergies), hepatitis C vi ral infection and drug abusewho presents withstatus epilepticus. The [facility] were rafi led and patient was [...] Lab 06/23/19 0422 PHART 7.313* PO2ART 120* DFK1RXC 46* V6UGJPJN 98 Diagnostic Imaging: Impressions only: Recent Results [...] ently she came to the hospital at [facility]. CT scan was done over there [...] this chart may have been created with [employer] voice recognition software. Occasi onal wrong-word or [...] Mehreen Hayward RN - 06/25/2019 6:54 PM [id number]: pt arrived on unit. MAP 61; 500ml NS bolus given; MAP currently 64. Patient passed swallow eval. Patient has be en sleepy, no seizures. End of shift chart check done. Anastasia Livingston MD - 06/25/2019 10:26 AM PDTFormatting of this note might be dif ferent from the original. [facility] Service: Neurology PROGRESS NOTE Subjective: Patient [...] us guide if anti-epileptics are necessary for retirement - I discussed at length with patient [...] my call. Please reach out to neurologist business administration instructor starting tomorrow for any additional concerns. If brain imaging is obta ined, please reach out to me to discuss results if needed. Mana Berger ARN P - 06/25/2019 7:32 AM PDT [facility] Service: Management Architect Progress Note Steffi Bishop 53 y.o. Hospital [...] abuse who presents with status epilepticus. The [facility] were called and patient was [...] MDMA ). Resolved. ? Head CT at [facility] was negative. ? Neurology (Dr. Argueta) is following. CT imaging obtained per Neurology recommendations. ? AED management per Neurology. Discontinued keppra per Neurology recommendations. Will nee d phenytoin 300 mg ER daily on discharge. Alcohol abuse: unknown when she last drank, but family reports heavy daily drinking. ? CIWA protocol with prn Ativan. ? Thiamine, folic acid supplementation daily. Polysubstance abuse: student success counselor on cessation. CV: Hypotension, requiring Levophed [...] of infection. Blood cultures were drawn at [facility] prior to transfer: NGTD HEME: No acute [...] Percent change: 17.6% Pt IS fluid responsive. Management Architect notified. Anastasia Livingston MD - 06/24/2019 9:30 AM PDTFormatting of this no te might be different from the original. [facility] Service: Neurology PROGRESS NOTE Subjective: Subjective: Patient seen and examined. Steffi Bisohp is a 53 y.o. female with history [...] your patient care. Please call us with Lithera he. Bryan Recinos MD - 06/24/2019 8:[address] [facility] Service: Continuous EEG Monitoring Progress Note Brief [...] any questions or concerns. Bryan Celis MD [facility] Clinical Neurophysiologist Cary Arnold NP - 06/24/2019 7:08 AM PDTFormatting of this note might be different from the origin al. [facility] Service: Management Architect Progress Note Steffi Bishop 53 y.o. Hospital [...] abuse who presents with status epilepticus. The the [facility] were called and patient was found [...] and MDMA ). ? Head CT at [facility] was negative. ? Cont Keppra and [...] monitor closely. Blood cultures were drawn at [facility] prior to transfer; I followed up wit [...] 06/24/2019 LuisVan MD - 06/23/2019 9:[address] [facility] Service: Continuous EEG Monitoring Progress Note Patient [...] any questions or concerns. Bryan Celis MD [facility] Clinical Neurophysiologist documented in th is encounter [...] [place], | | | | | | [place] [address] | | | | | | [phone] | | | | | | | [...] [facility] | | | | performed at [facility];[address] | mmol/L | LABORATORY | | | | [facility];[place], [place] | | | | | | [address] | | | | + + + + + + + + | Specimen | + + | Blood | + + + + + + + | Performing | Address | City/State/Zipcode | Phone Number | | Organization | | | | + + + + + | [facility] | [address] | [place] [address] | [phone] | + + + + + Potassium (07/03/2019 4:17 AM PDT) + + + + + + | Component | Value | Ref Range | Performed | Pathologist | | | | | At | Signature | + + + + + + | K | 3.9Comment: Testing | 3.5 - 4.9 | [facility] | | | | performed at [facility];[address] | mmol/L | LABORATORY | | | | [address];[place], [place] | | | | | | [address] | | | | + + + + + + + + | Specimen | + + | Blood | + + + + + + + | Performing | Address | City/State/Zipcode | Phone Number | | Organization | | | | + + + + + | [facility] | [address] [place] [address] | [phone] | + + + + + Phosphorus (07/03/2019 4:17 AM PDT) + + + + + + | Component | Value | Ref Range | Performed | Pathologist | | | | | At | Signature | + + + + + + | Phosphorus | 4.6Comment: Testing | 2.3 - 4.8 mg/dL | [facility] | | | | performed at [facility], [address] | | LABORATORY | | | | [address], | | | | | | [place] [address] | | | | + + + + + + + + | Specimen | + + | Blood | + + + + + + + | Performing | Address | City/State/Zipcode | Phone Number | | Organization | | | | + + + + + | [facility] | [address] | [place] [address] | [phone] | + + + + + Magnesium (07/03/2019 4:17 AM PDT) + + + + + + | Component | Value | Ref Range | Performed | Pathologist | | | | | At | Signature | + + + + + + | Magnesium | 2.2Comment: Testing | 1.7 - 2.4 mg/dL | [facility] | | | | performed at [facility], [address] | | LABORATORY | | | | [address], | | | | | | [place] [address] | | | | + + + + + + + + | Specimen | + + | Blood | + + + + + + + | Performing | Address | City/State/Zipcode | Phone Number | | Organization | | | | + + + + + | [facility] | [address] | [place] [address] | [phone] | + + + + + Potassium (07/02/2019 4:30 AM PDT) + + + + + + | Component | Value | Ref Range | Performed | Pathologist | | | | | At | Signature | + + + + + + | K | 4.1Comment: Testing | 3.5 - 4.9 | [facility] | | | | performed at [facility];[address] | mmol/L | LABORATORY | | | | [address];[place], [place] | | | | | | [address] | | | | + + + + + + + + | Specimen | + + | Blood | + + + + + + + | Performing | Address | City/State/Zipcode | Phone Number | | Organization | | | | + + + + + | [facility] | [address] | [place] [address] | [phone] | + + + + + Phosphorus (07/02/2019 4:30 AM PDT) + + + + + + | Component | Value | Ref Range | Performed | Pathologist | | | | | At | Signature | + + + + + + | Phosphorus | 4.6Comment: Testing | 2.3 - 4.8 mg/dL | [facility] | | | | performed at [facility], [address] | | LABORATORY | | | | [address], | | | | | | [place] [address] | | | | + + + + + + + + | Specimen | + + | Blood | + + + + + + + | Performing | Address | City/State/Zipcode | Phone Number | | Organization | | | | + + + + + | [facility] | [address] | [place] [address] | [phone] | + + + + + Magnesium (07/02/2019 4:30 AM PDT) + + + + + + | Component | Value | Ref Range | Performed | Pathologist | | | | | At | Signature | + + + + + + | Magnesium | 2.1Comment: Testing | 1.7 - 2.4 mg/dL | [facility] | | | | performed at [facility], [address] | | LABORATORY | | | | [address], | | | | | | [place] [address] | | | | + + + + + + + + | Specimen | + + | Blood | + + + + + + + | Performing | Address | City/State/Zipcode | Phone Number | | Organization | | | | + + + + + | [facility] | [address] | [place] [address] | [phone] | + + + + + Renal [...] | >60Comment: GFR <60: | >60 | [facility] | | | GFR | [...] | | | | | performed at [facility];[address] | | | | | | [facility];[place], [place] | | | | | | [address] | | | | + + + + + + + + | Specimen | + + | | + + + + + + + | Performing | Address | City/State/Zipcode | Phone Number | | Organization | | | | + + + + + | [facility] | [address] | [place] [address] | [phone] | + + + + + Phosphorus (07/01/2019 7:41 AM PDT) + + + + + + | Component | Value | Ref Range | Performed | Pathologist | | | | | At | Signature | + + + + + + | Phosphorus | 3.5Comment: Testing | 2.3 - 4.8 mg/dL | [facility] | | | | performed at [facility];[address] | | LABORATORY | | | | [address];[place] | | | | | | [address] | | | | + + + + + + + + | Specimen | + + | | + + + + + + + | Performing | Address | City/State/Zipcode | Phone Number | | Organization | | | | + + + + + | [facility] | [address] | [place] [address] | [phone] | + + + + + Magnesium (07/01/2019 7:41 AM PDT) + + + + + + | Component | Value | Ref Range | Performed | Pathologist | | | | | At | Signature | + + + + + + | Magnesium | 1.8Comment: Testing | 1.7 - 2.4 mg/dL | [facility] | | | | performed at [facility];[address] | | LABORATORY | | | | [facility];[place], [place] | | | | | | [address] | | | | + + + + + + + + | Specimen | + + | | + + + + + + + | Performing | Address | City/State/Zipcode | Phone Number | | Organization | | | | + + + + + | [facility] | [address] | [place] [address] | [phone] | + + + + + Potassium (07/01/2019 7:41 AM PDT) + + + + + + | Component | Value | Ref Range | Performed | Pathologist | | | | | At | Signature | + + + + + + | K | 3.9Comment: Testing | 3.5 - 4.9 | [facility] | | | | performed at [facility];[address] | mmol/L | LABORATORY | | | [address];[place] | | | | | | [address] | | | | + + + + + + + + | Specimen | + + | | + + + + + + + | Performing | Address | City/State/Zipcode | Phone Number | | Organization | | | | + + + + + | [facility] | [address] | [place] [address] | [phone] | + + + + + Potassium (06/30/2019 10:31 AM PDT) + + + + + + | Component | Value | Ref Range | Performed | Pathologist | | | | | At | Signature | + + + + + + | K | 3.4 (L)Comment: Testing | 3.5 - 4.9 | [facility] | | | | performed at [facility];[address] | mmol/L | LABORATORY | | | | [address];[place] | | | | | | [address] | | | | + + + + + + + + | Specimen | + + | Blood | + + + + + + + | Performing | Address | City/State/Zipcode | Phone Number | | Organization | | | | + + + + + | [facility] | [address] | [place] [address] | [phone] | + + + + + Phosphorus (06/30/2019 5:08 AM PDT) + + + + + + | Component | Value | Ref Range | Performed | Pathologist | | | | | At | Signature | + + + + + + | Phosphorus | 3.0Comment: Testing | 2.3 - 4.8 mg/dL | [facility] | | | | performed at [facility], [address] | | LABORATORY | | | | [address], | | | | | | [place] [address] | | | | + + + + + + + + | Specimen | + + | Blood | + + + + + + + | Performing | Address | City/State/Zipcode | Phone Number | | Organization | | | | + + + + + | [facility] | [address] | [place] [address] | [phone] | + + + + + Magnesium (06/30/2019 5:08 AM PDT) + + + + + + | Component | Value | Ref Range | Performed | Pathologist | | | | | At | Signature | + + + + + + | Magnesium | 2.0Comment: Testing | 1.7 - 2.4 mg/dL | [facility] | | | | performed at [facility], [address] | | LABORATORY | | | | [address], | | | | | | [place] [address] | | | | + + + + + + + + | Specimen | + + | Blood | + + + + + + + | Performing | Address | City/State/Zipcode | Phone Number | | Organization | | | | + + + + + | [facility] | [address] | [place] [address] | [phone] | + + + + + Renal [...] | | | | | performed at [facility], [address] | | | | | | [address] [facility], | | | | | | [place] [address] | | | | + + + + + + + + | Specimen | + + | Blood | + + + + + + + | Performing | Address | City/State/Zipcode | Phone Number | | Organization | | | | + + + + + | [facility] | [address] | [place] [address] | [phone] | + + + + + Potassium (06/30/2019 4:37 AM PDT) + + + + + + | Component | Value | Ref Range | Performed | Pathologist | | | | | At | Signature | + + + + + + | K | 3.6Comment: Testing | 3.5 - 4.9 | [facility] | | | | performed at [facility];888 | mmol/L | LABORATORY | | | | [address] [facility];[place], [place] | | | | | | [address] | | | | + + + + + + + + | Specimen | + + | Blood | + + + + + + + | Performing | Address | City/State/Zipcode | Phone Number | | Organization | | | | + + + + + | [facility] | [address] | [place] [address] | [phone] | + + + + + Potassium (06/29/2019 5:46 PM PDT) + + + + + + | Component | Value | Ref Range | Performed | Pathologist | | | | | At | Signature | + + + + + + | K | 4.1Comment: Testing | 3.5 - 4.9 | [facility] | | | | performed at [facility];888 | mmol/L | LABORATORY | | | | [address];[place] | | | | | | [address] | | | | + + + + + + + + | Specimen | + + | Blood | + + + + + + + | Performing | Address | City/State/Zipcode | Phone Number | | Organization | | | | + + + + + | [facility] | [address] | [place] [address] | [phone] | + + + + + Potassium (06/29/2019 12:22 PM PDT) + + + + + + | Component | Value | Ref Range | Performed | Pathologist | | | | | At | Signature | + + + + + + | K | 3.4 (L)Comment: Testing | 3.5 - 4.9 | [facility] | | | | performed at [facility];888 | mmol/L | LABORATORY | | | | [address];[place], [place] | | | | | | [address] | | | | + + + + + + + + | Specimen | + + | Blood | + + + + + + + | Performing | Address | City/State/Zipcode | Phone Number | | Organization | | | | + + + + + | [facility] | [address] | [place] [address] | [phone] | + + + + + Magnesium (06/29/2019 5:01 AM PDT) + + + + + + | Component | Value | Ref Range | Performed | Pathologist | | | | | At | Signature | + + + + + + | Magnesium | 1.9Comment: Testing | 1.7 - 2.4 mg/dL | [facility] | | | | performed at [facility], [address] | | LABORATORY | | | | [address], | | | | | | [place] [address] | | | | + + + + + + + + | Specimen | + + | | + + + + + + + | Performing | Address | City/State/Zipcode | Phone Number | | Organization | | | | + + + + + | [facility] | [address] | [place] [address] | [phone] | + + + + + Renal [...] | | | | | performed at [facility], [address] | | | | | | [facility], | | | | | | [place] [address] | | | | + + + + + + + + | Specimen | + + | Blood | + + + + + + + | Performing | Address | City/State/Zipcode | Phone Number | | Organization | | | | + + + + + | [facility] | [address] | [place] [address] | [phone] | + + + + + CBC [...] [facility] | | | | performed at [facility], [address] | | LABORATORY | | | | [facility] [address], | | | | | | [place] [address] | | | | + + + + + + + + | Specimen | + + | | + + + + + + + | Performing | Address | City/State/Zipcode | Phone Number | | Organization | | | | + + + + + | [facility] | [address] | [place] [address] | [phone] | + + + + + Potassium (06/28/2019 5:01 PM PDT) + + + + + + | Component | Value | Ref Range | Performed | Pathologist | | | | | At | Signature | + + + + + + | K | 3.5Comment: Testing | 3.5 - 4.9 | [facility] | | | | performed at [facility];888 | mmol/L | LABORATORY | | | | [address];[place], [place] | | | | | | [address] | | | | + + + + + + + + | Specimen | + + | Blood | + + + + + + + | Performing | Address | City/State/Zipcode | Phone Number | | Organization | | | | + + + + + | [facility] | [address] | [place] [address] | [phone] | + + + + + Potassium (06/28/2019 9:43 AM PDT) + + + + + + | Component | Value | Ref Range | Performed | Pathologist | | | | | At | Signature | + + + + + + | K | 3.1 (L)Comment: Testing | 3.5 - 4.9 | [facility] | | | | performed at [facility];888 | mmol/L | LABORATORY | | | | [facility] | | | | | | [address] | | | | + + + + + + + + | Specimen | + + | Blood | + + + + + + + | Performing | Address | City/State/Zipcode | Phone Number | | Organization | | | | + + + + + | [facility] | [address] | [place] [address] | [phone] | + + + + + Phenytoin [...] [facility] | | | | performed at [facility] | | LABORATORY | | | | [address];[place], [place] | | | | | | [address] | | | | + + + + + + + + | Specimen | + + | Blood | + + + + + + + | Performing | Address | City/State/Zipcode | Phone Number | | Organization | | | | + + + + + | [facility] | [address] | [place] [address] | [phone] | + + + + + POC Glucose (06/28/2019 8:17 AM PDT) + + + + + + | Component | Value | Ref Range | Performed | Pathologist | | | | | At | Signature | + + + + + + | Glucose, | 148 (H)Comment: Testing | 65 - 99 mg/dL | [facility] | | | POC | performed at [facility];[address] | | LABORATORY | | | | [address];[place] | | | | | | [address] | | | | + + + + + + + + | Specimen | + + | | + + + + + + + | Performing | Address | City/State/Zipcode | Phone Number | | Organization | | | | + + + + + | [facility] | [address] | [place] [address] | [phone] | + + + + + Phosphorus (06/28/2019 1:42 AM PDT) + + + + + + | Component | Value | Ref Range | Performed | Pathologist | | | | | At | Signature | + + + + + + | Phosphorus | 2.8Comment: Testing | 2.3 - 4.8 mg/dL | [facility] | | | | performed at [facility], [address] | | LABORATORY | | | | [address], | | | | | | [place] [address] | | | | + + + + + + + + | Specimen | + + | Blood | + + + + + + + | Performing | Address | City/State/Zipcode | Phone Number | | Organization | | | | + + + + + | [facility] | [address] | [place] [address] | [phone] | + + + + + Magnesium (06/28/2019 1:42 AM PDT) + + + + + + | Component | Value | Ref Range | Performed | Pathologist | | | | | At | Signature | + + + + + + | Magnesium | 1.8Comment: Testing | 1.7 - 2.4 mg/dL | [facility] | | | | performed at [facility], [address] | | LABORATORY | | | | [facility], | | | | | | [place] [address] | | | | + + + + + + + + | Specimen | + + | Blood | + + + + + + + | Performing | Address | City/State/Zipcode | Phone Number | | Organization | | | | + + + + + | [facility] | [address] | [place] [address] | [phone] | + + + + + CBC [...] | | | Absolute | performed at [facility], [address] | K/uL | LABORATORY | | | | [address], | | | | | | [place] [address] | | | | + + + + + + + + | Specimen | + + | Blood | + + + + + + + | Performing | Address | City/State/Zipcode | Phone Number | | Organization | | | | + + + + + | [facility] | [address] | [place] [address] | [phone] | + + + + + Basic [...] | >60Comment: GFR <60: | >60 | [facility] | | | GFR | [...] | | | | | | MDRD IDKS traceable | | | | | | equation.Testing | | | | | | performed at [facility], [address] | | | | | | [facility], | | | | | | [place] [address] | | | | + + + + + + + + | Specimen | + + | Blood | + + + + + + + | Performing | Address | City/State/Zipcode | Phone Number | | Organization | | | | + + + + + | [facility] | [address] | [place] [address] | [phone] | + + + + + Culture, [...] Special | Testing performed at | | [facility] | | | Requests | [facility];[address] | | LABORATORY | | | | [address];[place] [address] | | | | + + + + + + | RESULT | NO GROWTH 6 DAYS | | [facility] | | | | | | LABORATORY | | + + + + + + | RESULT | Testing performed at | | [facility] | | | | [facility], [address] | | LABORATORY | | | | [place] | | | | | | [address]Qnersyb: Testing | | | | | | performed at [facility], [address] | | | | | | [place] | | | | | | [address] | | | | + + + + + + + + | Specimen | + + | Blood - Peripheral | | blood specimen | | (specimen) | + + + + + + + | Performing | Address | City/State/Zipcode | Phone Number | | Organization | | | | + + + + + | [facility] | [address] | [place] [address] | [phone] | + + + + + POC Glucose (06/27/2019 5:01 PM PDT) + + + + + + | Component | Value | Ref Range | Performed | Pathologist | | | | | At | Signature | + + + + + + | Glucose, | 95Comment: Testing | 65 - 99 mg/dL | [facility] | | | POC | performed at [facility];[address] | | LABORATORY | | | | [address];[place] | | | | | | [address] | | | | + + + + + + + + | Specimen | + + | | + + + + + + + | Performing | Address | City/State/Zipcode | Phone Number | | Organization | | | | + + + + + | [facility] | [address] | [place] [address] | [phone] | + + + + + Culture, [...] Special | Testing performed at | | [facility] | | | Requests | [facility];[address] | | LABORATORY | | | | [address];[place] [address] | | | | + + + + + + | RESULT | NO GROWTH 6 DAYS | | [facility] | | | | | | LAB[facility]ATORY | | + + + + + + | RESULT | Testing performed at | | [facility] | | | | [place], [address] [facility] | | LABORATORY | | | | [place] | | | | | | [address]Fmxvmml: Testing | | | | | | performed at [facility], [address] | | | | | | [place] | | | | | | [address] | | | | + + + + + + + + | Specimen | + + | Blood - Peripheral | | blood specimen | | (specimen) | + + + + + + + | Performing | Address | City/State/Zipcode | Phone Number | | Organization | | | | + + + + + | [facility] | [address] | [place] [address] | [phone] | + + + + + Phosphorus (06/27/2019 4:29 AM PDT) + + + + + + | Component | Value | Ref Range | Performed | Pathologist | | | | | At | Signature | + + + + + + | Phosphorus | 3.3Comment: Testing | 2.3 - 4.8 mg/dL | [facility] | | | | performed at [facility], [address] | | LABORATORY | | | | [address], | | | | | | [place] [address] | | | | + + + + + + + + | Specimen | + + | Blood | + + + + + + + | Performing | Address | City/State/Zipcode | Phone Number | | Organization | | | | + + + + + | [facility] | [address] | [place] [address] | [phone] | + + + + + Magnesium (06/27/2019 4:29 AM PDT) + + + + + + | Component | Value | Ref Range | Performed | Pathologist | | | | | At | Signature | + + + + + + | Magnesium | 1.6 (L)Comment: Testing | 1.7 - 2.4 mg/dL | [facility] | | | | performed at [facility], [address] | | LABORATORY | | | | [address], | | | | | | [place] [address] | | | | + + + + + + + + | Specimen | + + | Blood | + + + + + + + | Performing | Address | City/State/Zipcode | Phone Number | | Organization | | | | + + + + + | [facility] | [address] | [place] [address] | [phone] | + + + + + CBC [...] | | | Absolute | performed at [facility], [address] | K/uL | LABORATORY | | | | [address], | | | | | | [place] [address] | | | | + + + + + + + + | Specimen | + + | Blood | + + + + + + + | Performing | Address | City/State/Zipcode | Phone Number | | Organization | | | | + + + + + | [facility] | [address] | [place] [address] | [phone] | + + + + + Basic [...] | >60Comment: GFR <60: | >60 | [facility] | | | GFR | [...] | | | | | performed at [facility], [address] | | | | | | [facility], | | | | | | [place] [address] | | | | + + + + + + + + | Specimen | + + | Blood | + + + + + + + | Performing | Address | City/State/Zipcode | Phone Number | | Organization | | | | + + + + + | [facility] | [address] | [place] [address] | [phone] | + + + + + POC Glucose (06/26/2019 9:25 PM PDT) + + + + + + | Component | Value | Ref Range | Performed | Pathologist | | | | | At | Signature | + + + + + + | Glucose, | 97Comment: Testing | 65 - 99 mg/dL | [facility] | | | POC | performed at [facility];[address] | | LABORATORY | | | | [address];[place] | | | | | | [address] | | | | + + + + + + + + | Specimen | + + | | + + + + + + + | Performing | Address | City/State/Zipcode | Phone Number | | Organization | | | | + + + + + | [facility] | [address] | [place] [address] | [phone] | + + + + + POC Glucose (06/26/2019 11:45 AM PDT) + + + + + + | Component | Value | Ref Range | Performed | Pathologist | | | | | At | Signature | + + + + + + | Glucose, | 88Comment: Testing | 65 - 99 mg/dL | [facility] | | | POC | performed at [facility];[address] | | LABORATORY | | | | [address];[place] | | | | | | [address] | | | | + + + + + + + + | Specimen | + + | | + + + + + + + | Performing | Address | City/State/Zipcode | Phone Number | | Organization | | | | + + + + + | [facility] | [address] | [place] [address] | [phone] | + + + + + ECG [...] | | | | | | at [facility];[address] | | | | | [address];[place] [address] | | | | + + + + + + + + | Specimen | + + | Blood | + + + + + + + | Performing | Address | City/State/Zipcode | Phone Number | | Organization | | | | + + + + + | [facility] | [address] | [place] [address] | [phone] | + + + + + TSH, Reflex Free T4 (06/26/2019 4:03 AM PDT) + + + + + + | Component | Value | Ref Range | Performed | Pathologist | | | | | At | Signature | + + + + + + | TSH | 0.560Comment: Testing | 0.450 - 5.100 | [facility] | | | | performed at [facility], [address] | uIU/mL | LABORATORY | | | | [address], | | | | | | [place] [address] | | | | + + + + + + + + | Specimen | + + | Blood | + + + + + + + | Performing | Address | City/State/Zipcode | Phone Number | | Organization | | | | + + + + + | [facility] | [address] | [place] [address] | [phone] | + + + + + Phosphorus (06/26/2019 4:03 AM PDT) + + + + + + | Component | Value | Ref Range | Performed | Pathologist | | | | | At | Signature | + + + + + + | Phosphorus | 2.7Comment: Testing | 2.3 - 4.8 mg/dL | [facility] | | | | performed at [facility], [address] | | LABORATORY | | | | [address], | | | | | | [place] [address] | | | | + + + + + + + + | Specimen | + + | Blood | + + + + + + + | Performing | Address | City/State/Zipcode | Phone Number | | Organization | | | | + + + + + | [facility] | [address] | [place] [address] | [phone] | + + + + + Magnesium (06/26/2019 4:03 AM PDT) + + + + + + | Component | Value | Ref Range | Performed | Pathologist | | | | | At | Signature | + + + + + + | Magnesium | 1.7Comment: Testing | 1.7 - 2.4 mg/dL | [facility] | | | | performed at [facility], [address] | | LABORATORY | | | | [address], | | | | | | [place] [address] | | | | + + + + + + + + | Specimen | + + | Blood | + + + + + + + | Performing | Address | City/State/Zipcode | Phone Number | | Organization | | | | + + + + + | [facility] | [address] | [place] [address] | [phone] | + + + + + CBC [...] | | | Absolute | performed at [facility], [address] | K/uL | LABORATORY | | | | [address], | | | | | | [place] [address] | | | | + + + + + + + + | Specimen | + + | Blood | + + + + + + + | Performing | Address | City/State/Zipcode | Phone Number | | Organization | | | | + + + + + | [facility] | [address] | [place] [address] | [phone] | + + + + + Basic [...] | | | | | performed at [facility], [address] | | | | | | [facility], | | | | | | [place] [address] | | | | + + + + + + + + | Specimen | + + | Blood | + + + + + + + | Performing | Address | City/State/Zipcode | Phone Number | | Organization | | | | + + + + + | [facility] | [address] | [place] [address] | [phone] | + + + + + Cortisol, AM (06/26/2019 4:03 AM PDT) + + + + + + | Component | Value | Ref Range | Performed | Pathologist | | | | | At | Signature | + + + + + + | Cortisol AM | 19.9Comment: Testing | 4.3 - 22.4 | [facility] | | | | performed at [facility], [address] | ug/dL | LABORATORY | | | | [address], | | | | | | [place] [address] | | | | + + + + + + + + | Specimen | + + | Blood | + + + + + + + | Performing | Address | City/State/Zipcode | Phone Number | | Organization | | | | + + + + + | [facility] | [address] | [place] [address] | [phone] | + + + + + POC Glucose (06/25/2019 8:57 PM PDT) + + + + + + | Component | Value | Ref Range | Performed | Pathologist | | | | | At | Signature | + + + + + + | Glucose, | 72Comment: Testing | 65 - 99 mg/dL | [facility] | | | POC | performed at [facility];[address] | | LABORATORY | | | | [address];[place] | | | | | | [address] | | | | + + + + + + + + | Specimen | + + | | + + + + + + + | Performing | Address | City/State/Zipcode | Phone Number | | Organization | | | | + + + + + | [facility] | [address] | [place] [address] | [phone] | + + + + + POC Glucose (06/25/2019 6:18 PM PDT) + + + + + + | Component | Value | Ref Range | Performed | Pathologist | | | | | At | Signature | + + + + + + | Glucose, | 82Comment: Testing | 65 - 99 mg/dL | [facility] | | | POC | performed at [facility];[address] | | LABORATORY | | | | [address];[place] | | | | | | [address] | | | | + + + + + + + + | Specimen | + + | | + + + + + + + | Performing | Address | City/State/Zipcode | Phone Number | | Organization | | | | + + + + + | [facility] | [address] | [place] [address] | [phone] | + + + + + CT [...] | | | POC | performed at [facility];[address] | | LABORATORY | | | | [address];[place], [place] | | | | | | [address] | | | | + + + + + + + + | Specimen | + + | | + + + + + + + | Performing | Address | City/State/Zipcode | Phone Number | | Organization | | | | + + + + + | [facility] | [address] [facility] | [place] [address] | [phone] | + + + + + Potassium (06/25/2019 11:26 AM PDT) + + + + + + | Component | Value | Ref Range | Performed | Pathologist | | | | | At | Signature | + + + + + + | K | 4.1Comment: Testing | 3.5 - 4.9 | [facility] | | | | performed at [facility];[address] | mmol/L | LABORATORY | | | | [address];[place] | | | | | | [address] | | | | + + + + + + + + | Specimen | + + | Blood | + + + + + + + | Performing | Address | City/State/Zipcode | Phone Number | | Organization | | | | + + + + + | [facility] | [address] | [place] [address] | [phone] | + + + + + ECHO [...] | | | POC | performed at [facility];[address] | | LABORATORY | | | | [address];[place], [place] | | | | | | [address] | | | | + + + + + + + + | Specimen | + + | | + + + + + + + | Performing | Address | City/State/Zipcode | Phone Number | | Organization | | | | + + + + + | [facility] | [address] | [place] [address] | [phone] | + + + + + Phosphorus (06/25/2019 3:10 AM PDT) + + + + + + | Component | Value | Ref Range | Performed | Pathologist | | | | | At | Signature | + + + + + + | Phosphorus | 2.5Comment: Testing | 2.3 - 4.8 mg/dL | [facility] | | | | performed at [facility];[address] | | LABORATORY | | | | [address];[place] | | | | | | [address] | | | | + + + + + + + + | Specimen | + + | Blood | + + + + + + + | Performing | Address | City/State/Zipcode | Phone Number | | Organization | | | | + + + + + | [facility] | [address] | [place] [address] | [phone] | + + + + + Magnesium (06/25/2019 3:10 AM PDT) + + + + + + | Component | Value | Ref Range | Performed | Pathologist | | | | | At | Signature | + + + + + + | Magnesium | 2.1Comment: Testing | 1.7 - 2.4 mg/dL | [facility] | | | | performed at [facility];[address] | | LABORATORY | | | | [address];[place] | | | | | | [address] | | | | + + + + + + + + | Specimen | + + | Blood | + + + + + + + | Performing | Address | City/State/Zipcode | Phone Number | | Organization | | | | + + + + + | [facility] | [address] | [place] [address] | [phone] | + + + + + CBC [...] 0.06Comment: Testing | 0.00 - 0.10 | [facility] | | | Absolute | performed at [facility];[address] | K/uL | LABORATORY | | | | [address];[place], [place] | | | | | | [address] | | | | + + + + + + + + | Specimen | + + | Blood | + + + + + + + | Performing | Address | City/State/Zipcode | Phone Number | | Organization | | | | + + + + + | [facility] | [address] | [place] [address] | [phone] | + + + + + Basic [...] | | | | | performed at [facility];[id number] | | | | | | [address];[place] | | | | | | [address] | | | | + + + + + + + + | Specimen | + + | Blood | + + + + + + + | Performing | Address | City/State/Zipcode | Phone Number | | Organization | | | | + + + + + | [facility] | [address] | [place] [address] | [phone] | + + + + + Potassium (06/24/2019 8:19 PM PDT) + + + + + + | Component | Value | Ref Range | Performed | Pathologist | | | | | At | Signature | + + + + + + | K | 3.6Comment: Testing | 3.5 - 4.9 | [facility] | | | | performed at [facility];[id number] | mmol/L | LABORATORY | | | | [address];[place] | | | | | | [address] | | | | + + + + + + + + | Specimen | + + | Blood | + + + + + + + | Performing | Address | City/State/Zipcode | Phone Number | | Organization | | | | + + + + + | [facility] | [address] | [place] [address] | [phone] | + + + + + Phosphorus (06/24/2019 8:19 PM PDT) + + + + + + | Component | Value | Ref Range | Performed | Pathologist | | | | | At | Signature | + + + + + + | Phosphorus | 2.5Comment: Testing | 2.3 - 4.8 mg/dL | [facility] | | | | performed at [facility];[id number] | | LABORATORY | | | | [address];[place] | | | | | | [address] | | | | + + + + + + + + | Specimen | + + | Blood | + + + + + + + | Performing | Address | City/State/Zipcode | Phone Number | | Organization | | | | + + + + + | [facility] | [address] | [place] [address] | [phone] | + + + + + Magnesium (06/24/2019 8:19 PM PDT) + + + + + + | Component | Value | Ref Range | Performed | Pathologist | | | | | At | Signature | + + + + + + | Magnesium | 1.7Comment: Testing | 1.7 - 2.4 mg/dL | [facility] | | | | performed at [facility];[address] | | LABORATORY | | | | [address];[place], [place] | | | | | | [address] | | | | + + + + + + + + | Specimen | + + | Blood | + + + + + + + | Performing | Address | City/State/Zipcode | Phone Number | | Organization | | | | + + + + + | [facility] | [address] | [place] [address] | [phone] | + + + + + POC Glucose (06/24/2019 8:08 PM PDT) + + + + + + | Component | Value | Ref Range | Performed | Pathologist | | | | | At | Signature | + + + + + + | Glucose, | 86Comment: Testing | 65 - 99 mg/dL | [facility] | | | POC | performed at [facility];[address] | | LABORATORY | | | | [address];[place], [place] | | | | | | [address] | | | | + + + + + + + + | Specimen | + + | | + + + + + + + | Performing | Address | City/State/Zipcode | Phone Number | | Organization | | | | + + + + + | [facility] | [address] | [place] [address] | [phone] | + + + + + POC [...] | | | POC | performed at [facility];[address] | | LABORATORY | | | | [address];[place] | | | | | | [address] | | | | + + + + + + + + | Specimen | + + | | + + + + + + + | Performing | Address | City/State/Zipcode | Phone Number | | Organization | | | | + + + + + | [facility] | [address] | [place] [address] | [phone] | + + + + + EEG-Continuous [...] | | propofol infusion 35 mcg/kg/min (06/24/19 6622) PRN | | | Meds:.acetaminophen, albuterol-ipratropium, Hypoglycemia [...] continuous EEG | | | representing a dqtz-tg-fmyjfujt encephalopathy. Diffuse beta | | | activity [...] indicated. Bryan Celis MD | | | [facility] Clinical Neurophysiologist | | + + + [...] 1314) | | | phenylephrine Stopped (06/23/19 8075) | | | propofol infusion 35 mcg/kg/min (06/24/19 8412) PRN | | | Meds:.acetaminophen, albuterol-ipratropium, Hypoglycemia [...] continuous EEG | | | representing a ozfj-gq-mqyakude encephalopathy. Diffuse beta | | | activity [...] indicated. Bryan Celis MD | | | [facility] Clinical Neurophysiologist | | + + + [...] | | | norepinephrine 3 mcg/min (06/24/19 1893) | | | phenylephrine Stopped (06/23/19 3526) | | | propofol infusion 35 mcg/kg/min [...] continuous EEG | | | representing a kysm-ao-npboucqi encephalopathy. Diffuse beta | | | activity [...] indicated. Bryan Celis MD | | | [facility] Clinical Neurophysiologist | | + + + [...] | | | POC | performed at [facility];[address] | | LABORATORY | | | | [address];[place], [place] | | | | | | [address] | | | | + + + + + + + + | Specimen | + + | | + + + + + + + | Performing | Address | City/State/Zipcode | Phone Number | | Organization | | | | + + + + + | [facility] | [address] | [place] [address] | [phone] | + + + + + POC [...] | | | POC | performed at [facility];[address] | | LABORATORY | | | | [address];[place] | | | | | | [address] | | | | + + + + + + + + | Specimen | + + | | + + + + + + + | Performing | Address | City/State/Zipcode | Phone Number | | Organization | | | | + + + + + | [facility] | [address] | [place] [address] | [phone] | + + + + + Phenytoin [...] | | | | | performed at [employer] [employer], | | | | | | [address], [address], | | | | | | [place] [address] | | | | + + + + + + + + | Specimen | + + | Blood | + + + + + + + | Performing | Address | City/State/Zipcode | Phone Number | | Organization | | | | + + + + + | [facility] | [address] | [place] [address] | [phone] | + + + + + Phosphorus (06/24/2019 5:04 AM PDT) + + + + + + | Component | Value | Ref Range | Performed | Pathologist | | | | | At | Signature | + + + + + + | Phosphorus | 1.8 (L)Comment: Testing | 2.3 - 4.8 mg/dL | [facility] | | | | performed at [facility];[address] | | LABORATORY | | | | [address];[place], [place] | | | | | | [address] | | | | + + + + + + + + | Specimen | + + | Blood | + + + + + + + | Performing | Address | City/State/Zipcode | Phone Number | | Organization | | | | + + + + + | [facility] | [address] | [place] [address] | [phone] | + + + + + Magnesium (06/24/2019 5:04 AM PDT) + + + + + + | Component | Value | Ref Range | Performed | Pathologist | | | | | At | Signature | + + + + + + | Magnesium | 1.9Comment: Testing | 1.7 - 2.4 mg/dL | [facility] | | | | performed at [facility];[address] | | LABORATORY | | | | [address];[place], [place] | | | | | | [address] | | | | + + + + + + + + | Specimen | + + | Blood | + + + + + + + | Performing | Address | City/State/Zipcode | Phone Number | | Organization | | | | + + + + + | [facility] | [address] | [place] [address] | [phone] | + + + + + CBC [...] | | | Absolute | performed at [facility];[address] | K/uL | LABORATORY | | | | [address];[place], [place] | | | | | | [address] | | | | + + + + + + + + | Specimen | + + | Blood | + + + + + + + | Performing | Address | City/State/Zipcode | Phone Number | | Organization | | | | + + + + + | [facility] | [address] | [place] [address] | [phone] | + + + + + Basic [...] | | | | | performed at [facility];[address] | | | | | | [facility];[place], [place] | | | | | | [address] | | | | + + + + + + + + | Specimen | + + | Blood | + + + + + + + | Performing | Address | City/State/Zipcode | Phone Number | | Organization | | | | + + + + + | [facility] | [address] | [place] [address] | [phone] | + + + + + Phenytoin [...] [facility] | | | | performed at [facility];[address] | | LABORATORY | | | | [address];[place] | | | | | | [address] | | | | + + + + + + + + | Specimen | + + | Blood | + + + + + + + | Performing | Address | City/State/Zipcode | Phone Number | | Organization | | | | + + + + + | [facility] | [address] | [place] [address] | [phone] | + + + + + POC [...] | | | POC | performed at [facility];[address] | | LABORATORY | | | | [address];[place] | | | | | | [address] | | | | + + + + + + + + | Specimen | + + | | + + + + + + + | Performing | Address | City/State/Zipcode | Phone Number | | Organization | | | | + + + + + | [facility] | [address] | [place] [address] | [phone] | + + + + + Potassium (06/23/2019 6:39 PM PDT) + + + + + + | Component | Value | Ref Range | Performed | Pathologist | | | | | At | Signature | + + + + + + | K | 4.4Comment: Testing | 3.5 - 4.9 | [facility] | | | | performed at [facility];888 | mmol/L | LABORATORY | | | | [address];[place] | | | | | | [address] | | | | + + + + + + + + | Specimen | + + | Blood | + + + + + + + | Performing | Address | City/State/Zipcode | Phone Number | | Organization | | | | + + + + + | [facility] | [address] | [place] [address] | [phone] | + + + + + Magnesium (06/23/2019 6:39 PM PDT) + + + + + + | Component | Value | Ref Range | Performed | Pathologist | | | | | At | Signature | + + + + + + | Magnesium | 2.2Comment: Testing | 1.7 - 2.4 mg/dL | [facility] | | | | performed at [facility];[address] | | LABORATORY | | | | [address];[place], [place] | | | | | | [address] | | | | + + + + + + + + | Specimen | + + | Blood | + + + + + + + | Performing | Address | City/State/Zipcode | Phone Number | | Organization | | | | + + + + + | [facility] | [address] | [place] [address] | [phone] | + + + + + XR [...] mediastinum | | | below the acquired bprnz-lk-wdms into the upper abdomen. Overlying | | [...] the mediastinum below the | | acquired mzwyn-fk-luzp into the upper abdomen. Overlying EKG leads [...] | | | POC | performed at [facility];[address] | | LABORATORY | | | | [address];[place], [place] | | | | | | [address] | | | | + + + + + + + + | Specimen | + + | | + + + + + + + | Performing | Address | City/State/Zipcode | Phone Number | | Organization | | | | + + + + + | [facility] | [address] | [place] [address] | [phone] | + + + + + Lactic Acid (06/23/2019 1:20 PM PDT) + + + + + + | Component | Value | Ref Range | Performed | Pathologist | | | | | At | Signature | + + + + + + | Lactate, | 1.4Comment: Testing | 0.4 - 2.0 | [facility] | | | Serum | performed at [facility];[address] | mmol/L | LABORATORY | | | | [address];[place] | | | | | | [address] | | | | + + + + + + + + | Specimen | + + | Blood | + + + + + + + | Performing | Address | City/State/Zipcode | Phone Number | | Organization | | | | + + + + + | [facility] | [address] | [place] [address] | [phone] | + + + + + Hepatic [...] [facility] | | | | performed at [facility];[address] | | LABORATORY | | | | [address];[place], [place] | | | | | | [address] | | | | + + + + + + + + | Specimen | + + | Blood | + + + + + + + | Performing | Address | City/State/Zipcode | Phone Number | | Organization | | | | + + + + + | [facility] | [address] | [place] [address] | [phone] | + + + + + Procalcitonin [...] | | | | | | at [facility];[address] | | | | | | [facility];[place] [address] | | | | + + + + + + + + | Specimen | + + | Blood | + + + + + + + | Performing | Address | City/State/Zipcode | Phone Number | | Organization | | | | + + + + + | [facility] | [address] [facility] | [place] [address] | [phone] | + + + + + POC Glucose (06/23/2019 11:54 AM PDT) + + + + + + | Component | Value | Ref Range | Performed | Pathologist | | | | | At | Signature | + + + + + + | Glucose, | 101 (H)Comment: Testing | 65 - 99 mg/dL | [facility] | | | POC | performed at [facility];[address] | | LABORATORY | | | | [address];[place] | | | | | | [address] | | | | + + + + + + + + | Specimen | + + | | + + + + + + + | Performing | Address | City/State/Zipcode | Phone Number | | Organization | | | | + + + + + | [facility] | [address] | [place] [address] | [phone] | + + + + + POC [...] | | | POC | performed at [facility];[address] | | LABORATORY | | | | [address];[place], [place] | | | | | | [address] | | | | + + + + + + + + | Specimen | + + | | + + + + + + + | Performing | Address | City/State/Zipcode | Phone Number | | Organization | | | | + + + + + | [facility] | [address] | [place] [address] | [phone] | + + + + + Blood [...] | | | | | performed at [facility];8 | | | | | | [address];[place], [place] | | | | | | [address] | | | | + + + + + + + + | Specimen | + + | | + + + + + + + | Performing | Address | City/State/Zipcode | Phone Number | | Organization | | | | + + + + + | [facility] | [address] | [place] [address] | [phone] | + + + + + Phosphorus (06/23/2019 4:08 AM PDT) + + + + + + | Component | Value | Ref Range | Performed | Pathologist | | | | | At | Signature | + + + + + + | Phosphorus | 4.4Comment: Testing | 2.3 - 4.8 mg/dL | [facility] | | | | performed at [facility];[address] | | LABORATORY | | | | [address];[place], [place] | | | | | | [address] | | | | + + + + + + + + | Specimen | + + | Blood | + + + + + + + | Performing | Address | City/State/Zipcode | Phone Number | | Organization | | | | + + + + + | [facility] | [address] | [place] [address] | [phone] | + + + + + Magnesium (06/23/2019 4:08 AM PDT) + + + + + + | Component | Value | Ref Range | Performed | Pathologist | | | | | At | Signature | + + + + + + | Magnesium | 1.6 (L)Comment: Testing | 1.7 - 2.4 mg/dL | [facility] | | | | performed at [facility];8 | | LABORATORY | | | | [facility], [place] | | | | | | [address] | | | | + + + + + + + + | Specimen | + + | Blood | + + + + + + + | Performing | Address | City/State/Zipcode | Phone Number | | Organization | | | | + + + + + | [facility] | [address] | [place] [address] | [phone] | + + + + + CBC [...] | | | | | performed at [facility];[address] | | | | | | [facility] | | | | | | [address] | | | | + + + + + + + + | Specimen | + + | Blood | + + + + + + + | Performing | Address | City/State/Zipcode | Phone Number | | Organization | | | | + + + + + | [facility] | [address] | [place] [address] | [phone] | + + + + + Basic [...] | | | | | performed at [facility];[address] | | | | | | [address];[place] | | | | | | [address] | | | | + + + + + + + + | Specimen | + + | Blood | + + + + + + + | Performing | Address | City/State/Zipcode | Phone Number | | Organization | | | | + + + + + | [facility] | [address] | [place] [address] | [phone] | + + + + + EEG (06/23/2019 3:43 AM PDT) + + + | Narrative | Performed At | + + + | Jeana Goldstein, Neurodiagnostic Tech 06/23/2019 3:44 | | | [facility] Neurodiagnostic [facility] [address] [place] [address] | | | [place] [address] Patient: Steffi Bishop ID: [id number] : | | | 1965 Age: 53 Gender: female Room #: 11713 Physician: | | | Anastasia Argueta Shaper And Presser: Jeana Goldstein Ref. Physician: Cary | | | Eduard SHULTZ Recording Date: 06/23/2019 Duration: 00:31:48 | | | Report Date: 06/23/2019 2:20 AM Medications: Ativan, | | | Keppra 2000mg loaded in ER at [place], fentanyl, no sedation | | | History: [...] | | | immediately notified to the business administration instructor provider, Dr. Holland. | | | [...] | | | Serum | performed at [facility];[address] | mmol/L | LABORATORY | | | | [address];[place], [place] | | | | | | [address] | | | | + + + + + + + + | Specimen | + + | Blood | + + + + + + + | Performing | Address | City/State/Zipcode | Phone Number | | Organization | | | | + + + + + | [facility] | [address] | [place] [address] | [phone] | + + + + + XR [...] | | | | [facility], [address] [address] | | LABORATORY | | | | [place] | | | | | | [address]Qxajoqi: Testing | | | | | | performed at [facility], [address] | | | | | [address], | | | | | | [place] [address] | | | | + + + + + + + + | Specimen | + + | Body Fluid - Sputum | | specimen obtained by | | aspiration | | (specimen) | + + + + + + + | Performing | Address | City/State/Zipcode | Phone Number | | Organization | | | | + + + + + | [facility] | [address] | [place] [address] | [phone] | + + + + + POC [...] | | | POC | performed at [facility];[address] | | LABORATORY | | | | [address];[place] | | | | | | [address] | | | | + + + + + + + + | Specimen | + + | | + + + + + + + | Performing | Address | City/State/Zipcode | Phone Number | | Organization | | | | + + + + + | [facility] | [address] | [place] [address] | [phone] | + + + + + MRSA [...] | | | | | performed at [facility];[address] | | | | | | [address];[place] | | | | | | [address] | | | | + + + + + + + + | Specimen | + + | Tissue - Both | | anterior nares (body | | structure) | + + + + + + + | Performing | Address | City/State/Zipcode | Phone Number | | Organization | | | | + + + + + | [facility] | [address] | [place] [address] | [phone] | + + + + + documented [...] (HCC) | + + | 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 06/22/19 at 2326 | | + [...] | | | | AC, NPO, Daytime 0603-0723 Use | | | | | | | NIGHT DOSE for doses scheduled: | | | | | | | HS, 3AM, Nighttime 3541-4023 | | | | | | | [...] PDT | | | | | Starting [facility] 06/22/19 at 2346, | | | [...] | | | | | protocol, Starting [facility] 06/22/19 | | | | | [...]
--- OUTSIDE RECORDS SUMMARY | ~2019-07-24 | XMS | Encounter Summary ---
Demographics + + + | Address | [address] | | | [place] [address] | + + + | Home Phone | | + + + | Preferred Language | Unknown | + + + | Marital Status | Single | + + + | Hinduism Affiliation | 1041 | + + + [...] Team Providers + +------+ + | Care Tannery Gummer Name | Role | Phone | + +------+ + PCP | Unavailable | + +------+ + Encounter Details +--------+ + + + + | Date | Type | Department | Care Team | Description | +--------+ + + + + | 05/07/ | Hospital | [facility] | Nivia Liriano, | Tox Eff Nonmed Subst | | 2008 - | Encounter | MEDICAL CENTER | MD Nadine CHRISTIE | | | | | CLINICAL DECISION | [place]AC [place], | | | 05/09/ | | [address] | [place] [address] | | | 2008 | | [place], [place] | [phone] | | | | | [address] | | | | | | [phone] | Eleanor [place], | | | | | | MD [address] | | | | | | [place] [address] | | | | | | [phone] | | | | | | | [...] 2018 | Visit | | [address] [place] | | | | | | [address], | | | | | | [place] [address] | | | | | | [phone] | | | | | | | [...] Performed At | + + + | [id number] | | | Page 1 RADIOLOGY | | | [facility] / | | | I/P [facility] | | | [place] NAME: [place] [address] | | | | | | | | | DATE OF : 1965 ORDER NUMBER: [id number] | | | EXAM DATE/TIME: 05/08/2009 05:00 [...] | | | 05/08/2009 07:39 A A [facility]/kenneth/[id number]/ | | | cc: MD TONE PADRON DO | | | MD JASON DE LA ROSA MD | | | ERIN WATKINS MD | | + + + + + | Procedure Note | + + | Maximus Bass - 05/01/2019 5:22 AM PDT | | [id number] Page 1 | | RADIOLOGY [facility] / | | I/P | | [facility] NAME: [place] | | [place] [address] | | | | DATE OF : 1965 | | | | ORDER NUMBER: [id number] | | EXAM DATE/TIME: 05/08/2009 05:00 A [...] | A | | A | | [facility]/kenneth/[id number]/ | | cc: CHIN RESTREPO MD | | TONE ELLISON DO | | ELEANOR YOUNG MD | | JASON COX MD | | ERIN WATKINS MD | + + XR Chest 1 Vw (05/07/2009 2:00 AM PDT) + + | Specimen | + + | | + + + + + | Narrative | Performed At | + + + | [id number] | | | Page 1 RADIOLOGY | | | [facility] / | | | I/P [facility] | | | CENTER NAME: [place] [address] | | | | | | | | | DATE OF : 1965 ORDER NUMBER: [id number] | | | EXAM DATE/TIME: 05/07/2009 01:03 A ORDERING PHYSICIAN: RONN | | | ELEANOR Horton ORDER DETAIL: [id number] / / HDI EXAM DESCRIPTION: XR CHEST [...] Electronically Signed by TONE Iraheta | | | DO TERRA 05/07/2009 10:35 P A DT: | | | 05/07/2009 02:54 P [facility]/[id number]/ cc: TONE ELLISON DO | | | MD ERIN DE LA ROSA MD | | + + + + + | Procedure Note | + + | Maximus Bass - 05/01/2019 5:22 AM PDT | | [id number] Page 1 | | RADIOLOGY [facility] / | | I/P | | [facility] NAME: [place] | | [place] [address] | | | | DATE OF : 1965 | | | | ORDER NUMBER: [id number] | | EXAM DATE/TIME: 05/07/2009 01:03 A [...] | A | | P | | [facility]/[id number]/ | | cc: TONE ELLISON DO | [...]
--- OUTSIDE RECORDS SUMMARY | ~2019-07-24 | XMS | Encounter Summary ---
Demographics + + + | Address | [address] | | | [place] [address] | + + + | Home Phone [...] Team Providers + +------+ + | Care Solid Tire Finisher Name | Role | Phone | + +------+ + PCP | Unavailable | + +------+ + Encounter Details +--------+ + + + + | Date | Type | Department | Care Team | Description | +--------+ + + + + | 05/07/ | Hospital | [facility] | Nivia Liriano, | Tox Eff Nonmed Subst | | 2008 - | Encounter | MEDICAL CENTER | MD Nadine CHRISTIE | | | | | CLINICAL DECISION | [place]AAC [place], | | | 05/09/ | | [address] | [place] [address] | | | 2008 | | [place], [place] | [phone] | | | | | [address] | | | | | | [phone] | Eleanor Young, | | | | | | MD [address] | | | | | | [place] [address] | | | | | | [phone] | | | | | | | [...] [place], | | | | | | [place] [address] | | | | | | [phone] | | | | | | | [...] Performed At | + + + | [id number] | | | Page 1 RADIOLOGY | | | [facility] / | | | I/P [facility] | | | [place] NAME: [place] [address] | | | | | | | | | DATE OF : 1965 ORDER NUMBER: [id number] | | | EXAM DATE/TIME: 05/08/2009 05:00 [...] | | | 05/08/2009 07:39 A A MY[facility]/kenneth/[id number]/ | | | cc: MD TONE PADRON DO | | | MD JASON DE LA ROSA MD | | | ERIN WATKINS MD | | + + + + + | Procedure Note | + + | Maximus Bass - 05/01/2019 5:22 AM PDT | | [id number] Page 1 | | RADIOLOGY [facility] / | | I/P | | [facility] NAME: S[place] | | [place] [address] | | | | DATE OF : 1965 | | | | ORDER NUMBER: [id number] | | EXAM DATE/TIME: 05/08/2009 05:00 A [...] | A | | A | | [facility]/kenneth/[id number]/ | | cc: CHIN RESTREPO MD | | TONE ELLISON DO | | ELEANOR YOUNG MD | | JASON COX MD | | ERIN WATKINS MD | + + XR Chest 1 Vw (05/07/2009 2:00 AM PDT) + + | Specimen | + + | | + + + + + | Narrative | Performed At | + + + | [id number] | | | Page 1 RADIOLOGY | | | [facility] / | | | I/P [facility] | | | CENTER [place] [address] | | | | | | | | | DATE OF : 1965 ORDER NUMBER: [id number] | | | EXAM DATE/TIME: 05/07/2009 01:03 A ORDERING PHYSICIAN: RONN | | | ELEANOR Horton ORDER DETAIL: [id number] / / HDI EXAM DESCRIPTION: XR CHEST [...] DT: | | | 05/07/2009 02:54 P [facility]/[id number]/ cc: TONE ELLISON DO | | | MD ERIN DE LA ROSA MD | | + + + + + | Procedure Note | + + | Maximus Bass - 05/01/2019 5:22 AM PDT | | [id number] Page 1 | | RADIOLOGY [facility] / | | I/P | | [facility] NAME: [address] | | [place] [address] | | | | DATE OF : 1965 | | | | ORDER NUMBER: [id number] | | EXAM DATE/TIME: 05/07/2009 01:03 A [...] | A | | P | | [facility]/[id number]/ | | cc: TONE ELLISON DO | [...]
--- OUTSIDE RECORDS SUMMARY | ~2019-07-24 | XMS | Encounter Summary ---
Demographics + + + | Address | [address] | | | [place] [address] | + + + | Home Phone | | + + + | Preferred Language | Unknown | + + + | Marital Status | Single | + + + | Jewish Affiliation | 1041 | + + + | Race | Unknown | + + + | Ethnic Group | Unknown | + + + Author + + + | Author | [facility] | | | and [place] | + + + | Organization | [facility] | | | [...] Team Providers + +------+ + | Care Production Intern Name | Role | Phone | + [...] | | | | | | | [place], [place] | | | | | | | [address] | | | | | | | Phone: | | | | | | | [phone] | | | | | | | Fax: | | | | | | | [phone] | | + + + + + [...] + + | 06/22/ | Hospital | [facility] | Cary Chapa DO | Status epilepticus | | 2019 - | Encounter | [facility] | [address] | ([facility]); Generalized | | | | CARE FLOOR [address] | [place] [address] | tonic-clonic seizure | | 07/03/ | | [address] | [phone] | ([facility]); H/O ETOH | | 2019 | | [place], [place] | | abuse; Polysubstance | | | | [address] | Deepak Stanton MD | abuse ([facility]); | | | | [phone] | [address] | Methamphetamine | | | | | [place] [address] | intoxication ([facility]); | | | | | 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 [facility] Service: Hospitalist Discharge Summary Date of [...] coursing through the mediastinum below the acquired exaqz-or-cnec into the upper abdomen. Overlying EKG leads [...] and drug abusewho presents withstatus epilepticus. [facility] were rafi led and patient was [...] Procedure Component Value Units Date/Time Culture, Blood [[id number]] Collected: 06/27/19 170 Order Status: Completed Lab Status: Preliminary result Updated: 06/29/19726 Specimen: Peripheral Blood Special Requests R.AC Special Requests Testing performed at [facility];[address] [place] [address] RESULT NO GROWTH 2 DAYS RESULT Testing performed at [facility], [address] [place] [address] Comment: Testing performed at [facility], [address] [place] [address] Culture, Blood [[id number]] Collected: 06/27/191656 Order Status: Completed Lab Status: Preliminary result Updated: 06/29/19726 Specimen: Peripheral Blood Special Requests L.AC Special Requests Testing performed at [facility];[address] [place] [address] RESULT NO GROWTH 2 DAYS RESULT Testing performed at [facility], [address] [place] [address] Comment: Testing performed at [facility], [address] [place] [address] Disposition: mcfp Condition: Stable Code Status: Full Code Discharge Procedure Orders Referral to Home Health Referral Priority: Routine Referral Type: Evaluate & Treat Referral Reason: Specialty Services Required Requested Specialty: Home Health Services Number of Visits Requested: 1 Follow up: RAFFI Ji [address] [place] [id number] Follow up on 07/04 at 1 PM. [facility] [address] [place] [address] Main Schedule an appointment as soon as possible for a visit intake Hara. Stream[address] [place] Office [address] [place] [address], [place] [address] Main Go on 07/20/2019 intake; Please arrive at 8:30 a.m. to complete paperwork. Appointment will begin at 9:00 a. m. Anat Pickett, RAFFI [address] [place] [address] Schedule an appointment as soon as possible for a visit in 1 week [facility] [address] [place] [id number] Discharge Medications New Medications Details midodrine 10 [...] and ask for a referral to an skin specialist for a n evaluation. Look in [...] one of these national groups: ? National [place] on Alcoholism and Drug Dependence 948-769-7451 ? National Drug and Alcohol Treatment Referral Service 959-123-OYFU ([phone]) Date Last Reviewed: 10/07/201619991406-[address] [place] [address]. All righ ts reserved. This information is [...] more often than directed. Talk to your mine administrator supervisor regarding the use of this medicine in children. While this medici ne may be prescribed for selected conditions, precautions do apply. What side effects may I notice from receiving this medicine? Side effects that you should report to your doctor or health animal care giver as soon as p ossible: allergic reactions like skin rash, itching or hives, swelling of the face, lips, or tong ue chest tightness fast, irregular heartbeat irritable, restless nausea, vomiting sweating unusually bleeding or bruising Side effects that usually do not require medical attention (report to your doctor or health animal care giver if they continue or are bothersome): sneezing [...] pharmacist, or health care provider. Copyright 2019 [employer] Phenytoin Does this test have other names? [...] Before taking a new prescription or an ivjf-epa-qzy nter medicine, it's best to check about [...] and any illicit drugs you may use. [id number] [employer]. [address] [place] [address]. All righ ts reserved. This information is not intended as a substitute for professional medical care. Always follow your healthcare professional's instructions. Midodrine tablets Brand Names: Orvaten, ProAmatine What is this medicine? MIDODRINE (IA sloan dreen) is used to treat low [...] on your doctor's advice. Talk to your mine administrator supervisor regarding the use of this medicine in children. Special care may be needed. What side effects may I notice from receiving this medicine? Side effects that you should report to your doctor or health animal care giver as soon as p ossible: awareness of heart beating blurred vision headache irregular heartbeat, palpitations, or chest pain pounding in the ears skin rash, hives Side effects that usually do not require medical attention (report to your doctor or health animal care giver if they continue or are bothersome): change [...] this medicine? Visit your doctor or health animal care giver for regular checks on your progress. You [...] medicine without asking your doctor or health animal care giver for advice. Some ingredients may increase yo [...] note might be different from sofi borden. [facility] Service:hospitalist Progress Note Hospital Day: LOS: 10 days SUBJECTIVE Patient Summary: refer to H&P and consult note for details Per ICU 53 y.o.femalewith significant past medical history of PTSD, depression, alcohol abuse, at least one seizure (is listed as the reaction to aspirin in her allergies), hepatitis C vi ral infection and drug abusewho presents withstatus epilepticus. [facility]fi [facility] and patient was [...] coursing through the mediastinum below the acquired yqysw-in-dkzq into the upper abdomen. Overlying EKG leads [...] recently she came to the hospital at [facility]. CT scan was done over there [...] Beto Bermeo MD - 9:27 AM PDT [facility] Service:hospitalist Progress Note Hospital Day: LOS: 9 days SUBJECTIVE Patient Summary: refer to H&P and consult note for details Per ICU 53 y.o.femalewith significant past medical history of PTSD, depression, alcohol abuse, at least one seizure (is listed as the reaction to aspirin in her allergies), hepatitis C vi ral infection and drug abusewho presents withstatus epilepticus. The [facility] were rafi led and patient was [...] coursing through the mediastinum below the acquired habnn-vt-kbnr into the upper abdomen. Overlying EKG leads [...] hemorrhage is present. No mass is evident. Caleor-white differentiation appears intact. No CT evidence of [...] recently she came to the hospital at [facility]. CT scan was done over there [...] healing. Well supported by ruben sweeney in [place]. Flight Test Shop Mechanic provided compassionate, non-judgmental presence, affirmed and e ncouraged expression of emotion, explored the link between her shame and her relationship wi th God, facilitated discussion regarding suffering, Divine trung, and self-compassion, refra med her pain into a source of compassion for the world, provided a Bible per request, and of fered prayer which was accepted. Patient expressed appreciation for c winforms developer visit and state d that a light of hope was sparked in her soul. rrCarla RN - 06/30/2019 4:07 AM PDTVSS throughout shif t. MAP >65. CIWA neg. Pt ambulating to bathroom and c/o no pain. Hourly rounding unevent ful. Chart check complete. Carla Shaver RN Beto Bermeo MD - 2018 8:32 AM PDT [facility] Service:hospitalist Progress Note Hospital Day: LOS: 7 days SUBJECTIVE Patient Summary: refer to H&P and consult note for details Per ICU 53 y.o.femalewith significant past medical history of PTSD, depression, alcohol abuse, at least one seizure (is listed as the reaction to aspirin in her allergies), hepatitis C vi ral infection and drug abusewho presents withstatus epilepticus. The [facility] were rafi led and patient was [...] coursing through the mediastinum below the acquired dguje-ww-mwzw into the upper abdomen. Overlying EKG leads [...] recently she came to the hospital at [facility]. CT scan was done over there [...] Fletcher R N - 06/28/2019 9:46 PM [id number]: Notified Dr. Campo of potassium of 3.5, per the protocol if pt needs another replacement, notify provider. Dr. Campo ok with giving the recommended 40 mEq of oral potassium. VSS throughout shift. Pt's MAP remained >65. Hourly rounding uneventful. Chart check complete. Carla Shaver, RN Freddy Edwards MD - 1 2:54 PM PDT [facility] Adult Hospitalist Progress Note Hospital Day: 6 Patient Summary: Briefly, 53-year-old female with extensive past medical history most significant for PTSD, depression, active alcohol abuse, active drug abuse, hepatitis C and other chronic comorbid ities who presented to [facility] ER unresponsive with generalized tonic-clonic seizures [...] Bermeo MD - 06/27/2019 9:31 AM PDT [facility] Service:hospitalist Progress Note Hospital Day: LOS: 5 days SUBJECTIVE Patient Summary: refer to H&P and consult note for details Per ICU 53 y.o.femalewith significant past medical history of PTSD, depression, alcohol abuse, at least one seizure (is listed as the reaction to aspirin in her allergies), hepatitis C vi ral infection and drug abusewho presents withstatus epilepticus. [facility] were [facility]fi led and patient was [...] tube tip is 3.9 cm above the óscra. Nasogastric tube is seen coursing through the mediastinum below the acquired vicow-yc-lsdn into the upper abdomen. Overlying EKG leads [...] recently she came to the hospital at [facility]. CT scan was done over there [...] Steffi Bishop AGE/SEX: 53 y.o. female ROOM: [facility]/9115- : 1965 PCP: RAFFI Ji ADMIT DATE: 06/22/2019 TODAY'S DATE: 06/26/2019 Hospital Day/Hospital Course: LOS: 4 days Per ICU 53 y.o.femalewith significant past medical history of PTSD, depression, alcohol abuse, at least one seizure (is listed as the reaction to aspirin in her allergies), hepatitis C vi ral infection and drug abusewho presents withstatus epilepticus. [facility] were [facility]fi led and patient was [...] Lab 06/23/19 0422 PHART 7.313* PO2ART 120* OQN8LCL 46* T0HIIOUD 98 Diagnostic Imaging: Impressions only: Recent Results [...] ently she came to the hospital at [facility]. CT scan was done over there [...] this chart may have been created with [employer]ary voice recognition software. Occasi onal wrong-word or [...] Mehreen Hayward RN - 06/25/2019 6:54 PM [id number]: pt arrived on unit. MAP 61; 500ml NS bolus given; MAP currently 64. Patient passed swallow eval. Patient has be en sleepy, no seizures. End of shift chart check done. Anastasia Livingston MD - 06/25/2019 10:26 AM PDTFormatting of this note might be dif ferent from the original. [facility] Service: Neurology PROGRESS NOTE Subjective: Patient [...] us guide if anti-epileptics are necessary for shelter - I discussed at length with patient [...] my call. Please reach out to neurologist call center receptionist starting tomorrow for any additional concerns. If brain imaging is obta ined, please reach out to me to discuss results if needed. Mana Berger ARN P - 06/25/2019 7:32 AM PDT [facility] Service: Wireless Retail Manager Progress Note Steffi Bishop 53 y.o. Hospital [...] abuse who presents with status epilepticus. The [facility] were called and patient [...] MDMA ). Resolved. ? Head CT at [facility] was negative. ? Neurology (Dr. Argueta) is following. CT imaging obtained per Neurology recommendations. ? AED management per Neurology. Discontinued keppra per Neurology recommendations. Will nee d phenytoin 300 mg ER daily on discharge. Alcohol abuse: unknown when she last drank, but family reports heavy daily drinking. ? CIWA protocol with prn Ativan. ? Thiamine, folic acid supplementation daily. Polysubstance abuse: elder counselor on cessation. CV: Hypotension, requiring Levophed [...] of infection. Blood cultures were drawn at [facility] prior to transfer: NGTD HEME: No acute [...] Percent change: 17.6% Pt IS fluid responsive. Wireless Retail Manager notified. Anastasia Livingston MD - 06/24/2019 9:30 AM PDTFormatting of this no te might be different from the original. [facility] Service: Neurology PROGRESS NOTE Subjective: Subjective: [...] your patient care. Please call us with [employer] he. Bryan Recinos MD - 06/24/2019 8:30 AM [facility] Service: Continuous EEG Monitoring Progress Note Brief [...] questions or concerns. Bryan Celis MD [facility] Clinical Neurophysiologist Cary Arnold NP - 06/24/2019 7:08 AM PDTFormatting of this note might be different from the origin al. [facility] Service: Wireless Retail Manager Progress Note Steffi Bishop 53 y.o. Hospital [...] abuse who presents with status epilepticus. The [facility] EMS were called and patient was found [...] and MDMA ). ? Head CT at [facility] was negative. ? Cont Keppra and fosphenytoin, [...] monitor closely. Blood cultures were drawn at [facility] prior to transfer; I followed up wit [...] 06/24/2019 LuisVan MD - 06/23/2019 9:53 AM [facility] Service: Continuous EEG Monitoring Progress Note Patient [...] questions or concerns. Bryan Celis MD [facility] Clinical Neurophysiologist documented in th is encounter [...] [place], | | | | | | [place] [address] | | | | | | [phone] | | | | | | | [...] [facility] | | | | performed at [facility];[address] | mmol/L | LABORATORY | | | | [facility];[place], [place] | | | | | | [address] | | | | + + + + + + + + | Specimen | + + | Blood | + + + + + + + | Performing | Address | City/State/Zipcode | Phone Number | | Organization | | | | + + + + + | [facility] | [address] | [place] [address] | [phone] | + + + + + Potassium (07/03/2019 4:17 AM PDT) + + + + + + | Component | Value | Ref Range | Performed | Pathologist | | | | | At | Signature | + + + + + + | K | 3.9Comment: Testing | 3.5 - 4.9 | [facility] | | | | performed at [facility];[address] | mmol/L | LABORATORY | | | | [address];[place], [place] | | | | | | [address] | | | | + + + + + + + + | Specimen | + + | Blood | + + + + + + + | Performing | Address | City/State/Zipcode | Phone Number | | Organization | | | | + + + + + | [facility] | [address] | [place] [address] | [phone] | + + + + + Phosphorus (07/03/2019 4:17 AM PDT) + + + + + + | Component | Value | Ref Range | Performed | Pathologist | | | | | At | Signature | + + + + + + | Phosphorus | 4.6Comment: Testing | 2.3 - 4.8 mg/dL | [place] | | | | performed at [facility], [address] | | LABORATORY | | | | [address], | | | | | | [place] [address] | | | | + + + + + + + + | Specimen | + + | Blood | + + + + + + + | Performing | Address | City/State/Zipcode | Phone Number | | Organization | | | | + + + + + | [facility] | [address] | [place] [address] | [phone] | + + + + + Magnesium (07/03/2019 4:17 AM PDT) + + + + + + | Component | Value | Ref Range | Performed | Pathologist | | | | | At | Signature | + + + + + + | Magnesium | 2.2Comment: Testing | 1.7 - 2.4 mg/dL | [place] | | | | performed at [facility], [address] | | LABORATORY | | | | [address], | | | | | | [place] [address] | | | | + + + + + + + + | Specimen | + + | Blood | + + + + + + + | Performing | Address | City/State/Zipcode | Phone Number | | Organization | | | | + + + + + | [facility] | [address] | [place] [address] | [phone] | + + + + + Potassium (07/02/2019 4:30 AM PDT) + + + + + + | Component | Value | Ref Range | Performed | Pathologist | | | | | At | Signature | + + + + + + | K | 4.1Comment: Testing | 3.5 - 4.9 | [facility] | | | | performed at [facility];[address] | mmol/L | LABORATORY | | | | [address];[place], [place] | | | | | | [address] | | | | + + + + + + + + | Specimen | + + | Blood | + + + + + + + | Performing | Address | City/State/Zipcode | Phone Number | | Organization | | | | + + + + + | [facility] | [address] | [place] [address] | [phone] | + + + + + Phosphorus (07/02/2019 4:30 AM PDT) + + + + + + | Component | Value | Ref Range | Performed | Pathologist | | | | | At | Signature | + + + + + + | Phosphorus | 4.6Comment: Testing | 2.3 - 4.8 mg/dL | [facility] | | | | performed at [facility], [address] | | LABORATORY | | | | [address], | | | | | | [place] [address] | | | | + + + + + + + + | Specimen | + + | Blood | + + + + + + + | Performing | Address | City/State/Zipcode | Phone Number | | Organization | | | | + + + + + | [facility] | [address] | [place] [address] | [phone] | + + + + + Magnesium (07/02/2019 4:30 AM PDT) + + + + + + | Component | Value | Ref Range | Performed | Pathologist | | | | | At | Signature | + + + + + + | Magnesium | 2.1Comment: Testing | 1.7 - 2.4 mg/dL | [facility] | | | | performed at [facility], [address] | | LABORATORY | | | | [address], | | | | | | [place] [address] | | | | + + + + + + + + | Specimen | + + | Blood | + + + + + + + | Performing | Address | City/State/Zipcode | Phone Number | | Organization | | | | + + + + + | [facility] | [address] | [place] [address] | [phone] | + + + + + Renal [...] | >60Comment: GFR <60: | >60 | [facility] | | | GFR | CHRONIC [...] | | | | | performed at [facility];[address] | | | | | | [address];[place], [place] | | | | | | [address] | | | | + + + + + + + + | Specimen | + + | | + + + + + + + | Performing | Address | City/State/Zipcode | Phone Number | | Organization | | | | + + + + + | [facility] | [address] | [place] [address] | [phone] | + + + + + Phosphorus (07/01/2019 7:41 AM PDT) + + + + + + | Component | Value | Ref Range | Performed | Pathologist | | | | | At | Signature | + + + + + + | Phosphorus | 3.5Comment: Testing | 2.3 - 4.8 mg/dL | V[facility] | | | | performed at [facility];[address] | | LABORATORY | | | | [address];[place] | | | | | | [address] | | | | + + + + + + + + | Specimen | + + | | + + + + + + + | Performing | Address | City/State/Zipcode | Phone Number | | Organization | | | | + + + + + | [facility] | [address] | [place] [address] | [phone] | + + + + + Magnesium (07/01/2019 7:41 AM PDT) + + + + + + | Component | Value | Ref Range | Performed | Pathologist | | | | | At | Signature | + + + + + + | Magnesium | 1.8Comment: Testing | 1.7 - 2.4 mg/dL | [facility] | | | | performed at [facility];[address] | | LABORATORY | | | | [address];[place], [place] | | | | | | [address] | | | | + + + + + + + + | Specimen | + + | | + + + + + + + | Performing | Address | City/State/Zipcode | Phone Number | | Organization | | | | + + + + + | [facility] | [address] | [place] [address] | [phone] | + + + + + Potassium (07/01/2019 7:41 AM PDT) + + + + + + | Component | Value | Ref Range | Performed | Pathologist | | | | | At | Signature | + + + + + + | K | 3.9Comment: Testing | 3.5 - 4.9 | [place] | | | | performed at [facility];[address] | mmol/L | LABORATORY | | | [address];[place] | | | | | | [address] | | | | + + + + + + + + | Specimen | + + | | + + + + + + + | Performing | Address | City/State/Zipcode | Phone Number | | Organization | | | | + + + + + | [facility] | [address] | [place] [address] | [phone] | + + + + + Potassium (06/30/2019 10:31 AM PDT) + + + + + + | Component | Value | Ref Range | Performed | Pathologist | | | | | At | Signature | + + + + + + | K | 3.4 (L)Comment: Testing | 3.5 - 4.9 | [facility] | | | | performed at [facility];[address] | mmol/L | LABORATORY | | | | [address];[place] | | | | | | [address] | | | | + + + + + + + + | Specimen | + + | Blood | + + + + + + + | Performing | Address | City/State/Zipcode | Phone Number | | Organization | | | | + + + + + | [facility] | [address] | [place] [address] | [phone] | + + + + + Phosphorus (06/30/2019 5:08 AM PDT) + + + + + + | Component | Value | Ref Range | Performed | Pathologist | | | | | At | Signature | + + + + + + | Phosphorus | 3.0Comment: Testing | 2.3 - 4.8 mg/dL | [facility] | | | | performed at [facility], [address] | | LABORATORY | | | | [address], | | | | | | [place] [address] | | | | + + + + + + + + | Specimen | + + | Blood | + + + + + + + | Performing | Address | City/State/Zipcode | Phone Number | | Organization | | | | + + + + + | [facility] | [address] | [place] [address] | [phone] | + + + + + Magnesium (06/30/2019 5:08 AM PDT) + + + + + + | Component | Value | Ref Range | Performed | Pathologist | | | | | At | Signature | + + + + + + | Magnesium | 2.0Comment: Testing | 1.7 - 2.4 mg/dL | [facility] | | | | performed at [facility], [address] | | LABORATORY | | | | [address], | | | | | | [place] [address] | | | | + + + + + + + + | Specimen | + + | Blood | + + + + + + + | Performing | Address | City/State/Zipcode | Phone Number | | Organization | | | | + + + + + | [facility] | [address] | [place] [address] | [phone] | + + + + + Renal [...] | | | | | performed at [facility], [address] | | | | | | [address] [facility], | | | | | | [place] [address] | | | | + + + + + + + + | Specimen | + + | Blood | + + + + + + + | Performing | Address | City/State/Zipcode | Phone Number | | Organization | | | | + + + + + | [facility] | [address] [facility] | [place] [address] | [phone] | + + + + + Potassium (06/30/2019 4:37 AM PDT) + + + + + + | Component | Value | Ref Range | Performed | Pathologist | | | | | At | Signature | + + + + + + | K | 3.6Comment: Testing | 3.5 - 4.9 | [facility] | | | | performed at [facility];888 | mmol/L | LABORATORY | | | | [facility];[place], [place] | | | | | | [address] | | | | + + + + + + + + | Specimen | + + | Blood | + + + + + + + | Performing | Address | City/State/Zipcode | Phone Number | | Organization | | | | + + + + + | [facility] | [address] | [place] [address] | [phone] | + + + + + Potassium (06/29/2019 5:46 PM PDT) + + + + + + | Component | Value | Ref Range | Performed | Pathologist | | | | | At | Signature | + + + + + + | K | 4.1Comment: Testing | 3.5 - 4.9 | [facility] | | | | performed at [facility];888 | mmol/L | LABORATORY | | | | [address];[place] | | | | | | [address] | | | | + + + + + + + + | Specimen | + + | Blood | + + + + + + + | Performing | Address | City/State/Zipcode | Phone Number | | Organization | | | | + + + + + | [facility] | [address] | [place] [address] | [phone] | + + + + + Potassium (06/29/2019 12:22 PM PDT) + + + + + + | Component | Value | Ref Range | Performed | Pathologist | | | | | At | Signature | + + + + + + | K | 3.4 (L)Comment: Testing | 3.5 - 4.9 | [facility] | | | | performed at [facility];888 | mmol/L | LABORATORY | | | | [address];[place], [place] | | | | | | [address] | | | | + + + + + + + + | Specimen | + + | Blood | + + + + + + + | Performing | Address | City/State/Zipcode | Phone Number | | Organization | | | | + + + + + | [facility] | [address] | [place] [address] | [phone] | + + + + + Magnesium (06/29/2019 5:01 AM PDT) + + + + + + | Component | Value | Ref Range | Performed | Pathologist | | | | | At | Signature | + + + + + + | Magnesium | 1.9Comment: Testing | 1.7 - 2.4 mg/dL | [facility] | | | | performed at [facility], [address] | | LABORATORY | | | | [address], | | | | | | [place] [address] | | | | + + + + + + + + | Specimen | + + | | + + + + + + + | Performing | Address | City/State/Zipcode | Phone Number | | Organization | | | | + + + + + | [facility] | [address] | [place] [address] | [phone] | + + + + + Renal [...] | | | | | performed at [facility], [address] | | | | | | [facility], | | | | | | [place] [address] | | | | + + + + + + + + | Specimen | + + | Blood | + + + + + + + | Performing | Address | City/State/Zipcode | Phone Number | | Organization | | | | + + + + + | [facility] | [address] | [place] [address] | [phone] | + + + + + CBC [...] [facility] | | | | performed at [facility], [address] | | LABORATORY | | | | [facility], | | | | | | [place] [address] | | | | + + + + + + + + | Specimen | + + | | + + + + + + + | Performing | Address | City/State/Zipcode | Phone Number | | Organization | | | | + + + + + | [facility] | [address] | [place] [address] | [phone] | + + + + + Potassium (06/28/2019 5:01 PM PDT) + + + + + + | Component | Value | Ref Range | Performed | Pathologist | | | | | At | Signature | + + + + + + | K | 3.5Comment: Testing | 3.5 - 4.9 | [facility] | | | | performed at [facility];888 | mmol/L | LABORATORY | | | | [address];[place], [place] | | | | | | [address] | | | | + + + + + + + + | Specimen | + + | Blood | + + + + + + + | Performing | Address | City/State/Zipcode | Phone Number | | Organization | | | | + + + + + | [facility] | [address] | [place] [address] | [phone] | + + + + + Potassium (06/28/2019 9:43 AM PDT) + + + + + + | Component | Value | Ref Range | Performed | Pathologist | | | | | At | Signature | + + + + + + | K | 3.1 (L)Comment: Testing | 3.5 - 4.9 | [facility] | | | | performed at [facility];888 | mmol/L | LABORATORY | | | | [facility];[place] | | | | | | [address] | | | | + + + + + + + + | Specimen | + + | Blood | + + + + + + + | Performing | Address | City/State/Zipcode | Phone Number | | Organization | | | | + + + + + | [facility] | [address] | [place] [address] | [phone] | + + + + + Phenytoin [...] [facility] | | | | performed at [facility] | | LABORATORY | | | | [address];[place], [place] | | | | | | [address] | | | | + + + + + + + + | Specimen | + + | Blood | + + + + + + + | Performing | Address | City/State/Zipcode | Phone Number | | Organization | | | | + + + + + | [facility] | [address] | [place] [address] | [phone] | + + + + + POC Glucose (06/28/2019 8:17 AM PDT) + + + + + + | Component | Value | Ref Range | Performed | Pathologist | | | | | At | Signature | + + + + + + | Glucose, | 148 (H)Comment: Testing | 65 - 99 mg/dL | [facility] | | | POC | performed at [facility];[address] | | LABORATORY | | | | [address];[place] | | | | | | [address] | | | | + + + + + + + + | Specimen | + + | | + + + + + + + | Performing | Address | City/State/Zipcode | Phone Number | | Organization | | | | + + + + + | [facility] | [address] | [place] [address] | [phone] | + + + + + Phosphorus (06/28/2019 1:42 AM PDT) + + + + + + | Component | Value | Ref Range | Performed | Pathologist | | | | | At | Signature | + + + + + + | Phosphorus | 2.8Comment: Testing | 2.3 - 4.8 mg/dL | [facility] | | | | performed at [facility], [address] | | LABORATORY | | | | [address], | | | | | | [place] [address] | | | | + + + + + + + + | Specimen | + + | Blood | + + + + + + + | Performing | Address | City/State/Zipcode | Phone Number | | Organization | | | | + + + + + | [facility] | [address] | [place] [address] | [phone] | + + + + + Magnesium (06/28/2019 1:42 AM PDT) + + + + + + | Component | Value | Ref Range | Performed | Pathologist | | | | | At | Signature | + + + + + + | Magnesium | 1.8Comment: Testing | 1.7 - 2.4 mg/dL | [facility] | | | | performed at [facility], [address] | | LABORATORY | | | | [facility], | | | | | | [place] [address] | | | | + + + + + + + + | Specimen | + + | Blood | + + + + + + + | Performing | Address | City/State/Zipcode | Phone Number | | Organization | | | | + + + + + | [facility] | [address] | [place] [address] | [phone] | + + + + + CBC [...] | | | Absolute | performed at [facility], [address] | K/uL | LABORATORY | | | | [address], | | | | | | [place] [address] | | | | + + + + + + + + | Specimen | + + | Blood | + + + + + + + | Performing | Address | City/State/Zipcode | Phone Number | | Organization | | | | + + + + + | [facility] | [address] | [place] [address] | [phone] | + + + + + Basic [...] | >60Comment: GFR <60: | >60 | [facility] | | | GFR | CHRONIC [...] | | | | | | MDRD IDVT traceable | | | | | | equation.Testing | | | | | | performed at [facility], [address] | | | | | | [facility], | | | | | | [place] [address] | | | | + + + + + + + + | Specimen | + + | Blood | + + + + + + + | Performing | Address | City/State/Zipcode | Phone Number | | Organization | | | | + + + + + | [facility] | [address] | [place] [address] | [phone] | + + + + + Culture, [...] Special | Testing performed at | | [facility] | | | Requests | [facility];[address] | LABORATORY | | | | [address];[place] [address] | | | | + + + + + + | RESULT | NO GROWTH 6 DAYS | | [facility] | | | | | | LABORATORY | | + + + + + + | RESULT | Testing performed at | | [facility] | | | | [facility], [address] | | LABORATORY | | | | [place] | | | | | | [address]Frhzbby: Testing | | | | | | performed at [facility], [address] | | | | | | [address] [place] | | | | | | [address] | | | | + + + + + + + + | Specimen | + + | Blood - Peripheral | | blood specimen | | (specimen) | + + + + + + + | Performing | Address | City/State/Zipcode | Phone Number | | Organization | | | | + + + + + | [facility] | [address] | [place] [address] | [phone] | + + + + + POC Glucose (06/27/2019 5:01 PM PDT) + + + + + + | Component | Value | Ref Range | Performed | Pathologist | | | | | At | Signature | + + + + + + | Glucose, | 95Comment: Testing | 65 - 99 mg/dL | [facility] | | | POC | performed at [facility];[address] | | LABORATORY | | | | [address];[place] | | | | | | [address] | | | | + + + + + + + + | Specimen | + + | | + + + + + + + | Performing | Address | City/State/Zipcode | Phone Number | | Organization | | | | + + + + + | [facility] | [address] | [place] [address] | [phone] | + + + + + Culture, [...] Special | Testing performed at | | [facility] | | | Requests | [facility];[address] | | LABORATORY | | | | [address];[place] [address] | | | | + + + + + + | RESULT | NO GROWTH 6 DAYS | | [facility] | | | | | | LABORATORY | | + + + + + + | RESULT | Testing performed at | | [facility] | | | | L, [address] [facility] | | LABORATORY | | | | [place] | | | | | | [address]Yyrjjdb: Testing | | | | | | performed at [facility], [address] | | | | | | [place] | | | | | | [address] | | | | + + + + + + + + | Specimen | + + | Blood - Peripheral | | blood specimen | | (specimen) | + + + + + + + | Performing | Address | City/State/Zipcode | Phone Number | | Organization | | | | + + + + + | [facility] | [address] | [place] [address] | [phone] | + + + + + Phosphorus (06/27/2019 4:29 AM PDT) + + + + + + | Component | Value | Ref Range | Performed | Pathologist | | | | | At | Signature | + + + + + + | Phosphorus | 3.3Comment: Testing | 2.3 - 4.8 mg/dL | [facility] | | | | performed at [facility], [address] | | LABORATORY | | | | [address], | | | | | | [place] [address] | | | | + + + + + + + + | Specimen | + + | Blood | + + + + + + + | Performing | Address | City/State/Zipcode | Phone Number | | Organization | | | | + + + + + | [facility] | [address] | [place] [address] | [phone] | + + + + + Magnesium (06/27/2019 4:29 AM PDT) + + + + + + | Component | Value | Ref Range | Performed | Pathologist | | | | | At | Signature | + + + + + + | Magnesium | 1.6 (L)Comment: Testing | 1.7 - 2.4 mg/dL | [facility] | | | | performed at L, [address] | | LABORATORY | | | | [address], | | | | | | [place] [address] | | | | + + + + + + + + | Specimen | + + | Blood | + + + + + + + | Performing | Address | City/State/Zipcode | Phone Number | | Organization | | | | + + + + + | [facility] | [address] | [place] [address] | [phone] | + + + + + CBC [...] | | | Absolute | performed at [facility], [address] | K/uL | LABORATORY | | | | [place] [place], | | | | | | [place] [address] | | | | + + + + + + + + | Specimen | + + | Blood | + + + + + + + | Performing | Address | City/State/Zipcode | Phone Number | | Organization | | | | + + + + + | [facility] | [address] | [place] [address] | [phone] | + + + + + Basic [...] | >60Comment: GFR <60: | >60 | [facility] | | | GFR | CHRONIC [...] | | | | | | MDRD [facility] traceable | | | | | | equation.Testing | | | | | | performed at [facility], [address] | | | | | | [facility], | | | | | | [place] [address] | | | | + + + + + + + + | Specimen | + + | Blood | + + + + + + + | Performing | Address | City/State/Zipcode | Phone Number | | Organization | | | | + + + + + | [facility] | [address] | [place] [address] | [phone] | + + + + + POC Glucose (06/26/2019 9:25 PM PDT) + + + + + + | Component | Value | Ref Range | Performed | Pathologist | | | | | At | Signature | + + + + + + | Glucose, | 97Comment: Testing | 65 - 99 mg/dL | [facility] | | | POC | performed at [facility];[address] | | LABORATORY | | | | [address];[place] | | | | | | [address] | | | | + + + + + + + + | Specimen | + + | | + + + + + + + | Performing | Address | City/State/Zipcode | Phone Number | | Organization | | | | + + + + + | [facility] | [address] | [place] [address] | [phone] | + + + + + POC Glucose (06/26/2019 11:45 AM PDT) + + + + + + | Component | Value | Ref Range | Performed | Pathologist | | | | | At | Signature | + + + + + + | Glucose, | 88Comment: Testing | 65 - 99 mg/dL | [facility] | | | POC | performed at [facility];[address] | | LABORATORY | | | | [address];[place] | | | | | | [address] | | | | + + + + + + + + | Specimen | + + | | + + + + + + + | Performing | Address | City/State/Zipcode | Phone Number | | Organization | | | | + + + + + | [facility] | [address] | [place] [address] | [phone] | + + + + + ECG [...] | | | | | | at [facility];[address] | [address];[place] [address] | | | | + + + + + + + + | Specimen | + + | Blood | + + + + + + + | Performing | Address | City/State/Zipcode | Phone Number | | Organization | | | | + + + + + | [facility] | [address] | [place] [address] | [phone] | + + + + + TSH, Reflex Free T4 (06/26/2019 4:03 AM PDT) + + + + + + | Component | Value | Ref Range | Performed | Pathologist | | | | | At | Signature | + + + + + + | TSH | 0.560Comment: Testing | 0.450 - 5.100 | [facility] | | | | performed at [facility], [address] | uIU/mL | LABORATORY | | | | [address], | | | | | | [place] [address] | | | | + + + + + + + + | Specimen | + + | Blood | + + + + + + + | Performing | Address | City/State/Zipcode | Phone Number | | Organization | | | | + + + + + | [facility] | [address] | [place] [address] | [phone] | + + + + + Phosphorus (06/26/2019 4:03 AM PDT) + + + + + + | Component | Value | Ref Range | Performed | Pathologist | | | | | At | Signature | + + + + + + | Phosphorus | 2.7Comment: Testing | 2.3 - 4.8 mg/dL | [facility] | | | | performed at [facility], [address] | | LABORATORY | | | | [address], | | | | | | [place] [address] | | | | + + + + + + + + | Specimen | + + | Blood | + + + + + + + | Performing | Address | City/State/Zipcode | Phone Number | | Organization | | | | + + + + + | [facility] | [address] | [place] [address] | [phone] | + + + + + Magnesium (06/26/2019 4:03 AM PDT) + + + + + + | Component | Value | Ref Range | Performed | Pathologist | | | | | At | Signature | + + + + + + | Magnesium | 1.7Comment: Testing | 1.7 - 2.4 mg/dL | [facility] | | | | performed at [facility], [address] | | LABORATORY | | | | [address], | | | | | | [place] [address] | | | | + + + + + + + + | Specimen | + + | Blood | + + + + + + + | Performing | Address | City/State/Zipcode | Phone Number | | Organization | | | | + + + + + | [facility] | [address] | [place] [address] | [phone] | + + + + + CBC [...] | | | Absolute | performed at [facility], [address] | K/uL | LABORATORY | | | | [place] [place], | | | | | | [place] [address] | | | | + + + + + + + + | Specimen | + + | Blood | + + + + + + + | Performing | Address | City/State/Zipcode | Phone Number | | Organization | | | | + + + + + | [facility] | [address] | [place] [address] | [phone] | + + + + + Basic [...] | | | | | performed at [facility], [address] | | | | | | [facility], | | | | | | [place] [address] | | | | + + + + + + + + | Specimen | + + | Blood | + + + + + + + | Performing | Address | City/State/Zipcode | Phone Number | | Organization | | | | + + + + + | [facility] | [address] | [place] [address] | [phone] | + + + + + Cortisol, AM (06/26/2019 4:03 AM PDT) + + + + + + | Component | Value | Ref Range | Performed | Pathologist | | | | | At | Signature | + + + + + + | Cortisol AM | 19.9Comment: Testing | 4.3 - 22.4 | [facility] | | | | performed at [facility], [address] | ug/dL | LABORATORY | | | | [place] [place], | | | | | | [place] [address] | | | | + + + + + + + + | Specimen | + + | Blood | + + + + + + + | Performing | Address | City/State/Zipcode | Phone Number | | Organization | | | | + + + + + | [facility] | [address] | [place] [address] | [phone] | + + + + + POC Glucose (06/25/2019 8:57 PM PDT) + + + + + + | Component | Value | Ref Range | Performed | Pathologist | | | | | At | Signature | + + + + + + | Glucose, | 72Comment: Testing | 65 - 99 mg/dL | [facility] | | | POC | performed at [facility];[address] | | LABORATORY | | | | [address];[place] | | | | | | [address] | | | | + + + + + + + + | Specimen | + + | | + + + + + + + | Performing | Address | City/State/Zipcode | Phone Number | | Organization | | | | + + + + + | [facility] | [address] | [place] [address] | [phone] | + + + + + POC Glucose (06/25/2019 6:18 PM PDT) + + + + + + | Component | Value | Ref Range | Performed | Pathologist | | | | | At | Signature | + + + + + + | Glucose, | 82Comment: Testing | 65 - 99 mg/dL | [facility] | | | POC | performed at [facility];[address] | | LABORATORY | | | | [address];[place] | | | | | | [address] | | | | + + + + + + + + | Specimen | + + | | + + + + + + + | Performing | Address | City/State/Zipcode | Phone Number | | Organization | | | | + + + + + | [facility] | [address] | [place] [address] | [phone] | + + + + + CT [...] | | | POC | performed at [facility];[address] | | LABORATORY | | | | [address];[place], [place] | | | | | | [address] | | | | + + + + + + + + | Specimen | + + | | + + + + + + + | Performing | Address | City/State/Zipcode | Phone Number | | Organization | | | | + + + + + | [facility] | [address] | [place] [address] | [phone] | + + + + + Potassium (06/25/2019 11:26 AM PDT) + + + + + + | Component | Value | Ref Range | Performed | Pathologist | | | | | At | Signature | + + + + + + | K | 4.1Comment: Testing | 3.5 - 4.9 | [facility] | | | | performed at [facility];[address] | mmol/L | LABORATORY | | | | [address];[place] | | | | | | [address] | | | | + + + + + + + + | Specimen | + + | Blood | + + + + + + + | Performing | Address | City/State/Zipcode | Phone Number | | Organization | | | | + + + + + | [facility] | [address] | [place] [address] | [phone] | + + + + + ECHO [...] | | | POC | performed at [facility];[address] | | LABORATORY | | | | [address];[place], [place] | | | | | | [address] | | | | + + + + + + + + | Specimen | + + | | + + + + + + + | Performing | Address | City/State/Zipcode | Phone Number | | Organization | | | | + + + + + | [facility] | [address] | [place] [address] | [phone] | + + + + + Phosphorus (06/25/2019 3:10 AM PDT) + + + + + + | Component | Value | Ref Range | Performed | Pathologist | | | | | At | Signature | + + + + + + | Phosphorus | 2.5Comment: Testing | 2.3 - 4.8 mg/dL | [facility] | | | | performed at [facility];[address] | | LABORATORY | | | | [address];[place] | | | | | | [address] | | | | + + + + + + + + | Specimen | + + | Blood | + + + + + + + | Performing | Address | City/State/Zipcode | Phone Number | | Organization | | | | + + + + + | [facility] | [address] | [place] [address] | [phone] | + + + + + Magnesium (06/25/2019 3:10 AM PDT) + + + + + + | Component | Value | Ref Range | Performed | Pathologist | | | | | At | Signature | + + + + + + | Magnesium | 2.1Comment: Testing | 1.7 - 2.4 mg/dL | [facility] | | | | performed at [facility];[address] | | LABORATORY | | | | [address];[place] | | | | | | [address] | | | | + + + + + + + + | Specimen | + + | Blood | + + + + + + + | Performing | Address | City/State/Zipcode | Phone Number | | Organization | | | | + + + + + | [facility] | [address] | [place] [address] | [phone] | + + + + + CBC [...] 0.06Comment: Testing | 0.00 - 0.10 | [facility] | | | Absolute | performed at [facility];[address] | K/uL | LABORATORY | | | | [address];[place], [place] | | | | | | [address] | | | | + + + + + + + + | Specimen | + + | Blood | + + + + + + + | Performing | Address | City/State/Zipcode | Phone Number | | Organization | | | | + + + + + | [facility] | [address] | [place] [address] | [phone] | + + + + + Basic [...] | | | | | performed at [facility];[address] | [address] | | [address];[place] | | | | | | [address] | | | | + + + + + + + + | Specimen | + + | Blood | + + + + + + + | Performing | Address | City/State/Zipcode | Phone Number | | Organization | | | | + + + + + | [facility] | [address] | [place] [address] | [phone] | + + + + + Potassium (06/24/2019 8:19 PM PDT) + + + + + + | Component | Value | Ref Range | Performed | Pathologist | | | | | At | Signature | + + + + + + | K | 3.6Comment: Testing | 3.5 - 4.9 | [facility] | | | | performed at [facility];888 | mmol/L | LABORATORY | | | | [address];[place] | | | | | | [address] | | | | + + + + + + + + | Specimen | + + | Blood | + + + + + + + | Performing | Address | City/State/Zipcode | Phone Number | | Organization | | | | + + + + + | [facility] | [address] | [place] [address] | [phone] | + + + + + Phosphorus (06/24/2019 8:19 PM PDT) + + + + + + | Component | Value | Ref Range | Performed | Pathologist | | | | | At | Signature | + + + + + + | Phosphorus | 2.5Comment: Testing | 2.3 - 4.8 mg/dL | [facility] | | | | performed at [facility];888 | | LABORATORY | | | | [address];[place] | | | | | | [address] | | | | + + + + + + + + | Specimen | + + | Blood | + + + + + + + | Performing | Address | City/State/Zipcode | Phone Number | | Organization | | | | + + + + + | [facility] | [address] | [place] [address] | [phone] | + + + + + Magnesium (06/24/2019 8:19 PM PDT) + + + + + + | Component | Value | Ref Range | Performed | Pathologist | | | | | At | Signature | + + + + + + | Magnesium | 1.7Comment: Testing | 1.7 - 2.4 mg/dL | [facility] | | | | performed at [facility];888 | | LABORATORY | | | | [address];[place], [place] | | | | | | [address] | | | | + + + + + + + + | Specimen | + + | Blood | + + + + + + + | Performing | Address | City/State/Zipcode | Phone Number | | Organization | | | | + + + + + | [facility] | [address] | [place] [address] | [phone] | + + + + + POC Glucose (06/24/2019 8:08 PM PDT) + + + + + + | Component | Value | Ref Range | Performed | Pathologist | | | | | At | Signature | + + + + + + | Glucose, | 86Comment: Testing | 65 - 99 mg/dL | [facility] | | | POC | performed at [facility];[address] | | LABORATORY | | | | [address];[place], [place] | | | | | | [address] | | | | + + + + + + + + | Specimen | + + | | + + + + + + + | Performing | Address | City/State/Zipcode | Phone Number | | Organization | | | | + + + + + | [facility] | [address] | [place] [address] | [phone] | + + + + + POC [...] | | | POC | performed at [facility];[address] | | LABORATORY | | | | [address];[place] | | | | | | [address] | | | | + + + + + + + + | Specimen | + + | | + + + + + + + | Performing | Address | City/State/Zipcode | Phone Number | | Organization | | | | + + + + + | [facility] | [address] | [place] [address] | [phone] | + + + + + EEG-Continuous [...] | | propofol infusion 35 mcg/kg/min (06/24/19 7862) PRN | | | Meds:.acetaminophen, albuterol-ipratropium, Hypoglycemia [...] continuous EEG | | | representing a qzbr-oe-lnkfrsss encephalopathy. Diffuse beta | | | activity [...] Bryan Celis MD | | | [facility] Clinical Neurophysiologist | | + + + [...] 1314) | | | phenylephrine Stopped (06/23/19 5905) | | | propofol infusion 35 mcg/kg/min (06/24/19 8652) PRN | | | Meds:.acetaminophen, albuterol-ipratropium, Hypoglycemia [...] continuous EEG | | | representing a myss-ju-mhocmjfa encephalopathy. Diffuse beta | | | activity [...] Bryan Celis MD | | | [facility] Clinical Neurophysiologist | | + + + [...] | | | norepinephrine 3 mcg/min (06/24/19 1415) | | | phenylephrine Stopped (06/23/19 5454) | | | propofol infusion 35 mcg/kg/min [...] continuous EEG | | | representing a rblf-zn-bgnlytoy encephalopathy. Diffuse beta | | | activity [...] indicated. Bryan Celis MD | | | [facility] Clinical Neurophysiologist | | + + + [...] | | | POC | performed at [facility];888 | | LABORATORY | | | | [address];[place], [place] | | | | | | [address] | | | | + + + + + + + + | Specimen | + + | | + + + + + + + | Performing | Address | City/State/Zipcode | Phone Number | | Organization | | | | + + + + + | [facility] | [address] | [place] [address] | [phone] | + + + + + POC [...] | | | POC | performed at [facility];[address] | | LABORATORY | | | | [address];[place] | | | | | | [address] | | | | + + + + + + + + | Specimen | + + | | + + + + + + + | Performing | Address | City/State/Zipcode | Phone Number | | Organization | | | | + + + + + | [facility] | [address] | [place] [address] | [phone] | + + + + + Phenytoin [...] | | | | | performed at [facility], | | | | | | [address], [address], | | | | | | [place] [address] | | | | + + + + + + + + | Specimen | + + | Blood | + + + + + + + | Performing | Address | City/State/Zipcode | Phone Number | | Organization | | | | + + + + + | [facility] | [address] | [place] [address] | [phone] | + + + + + Phosphorus (06/24/2019 5:04 AM PDT) + + + + + + | Component | Value | Ref Range | Performed | Pathologist | | | | | At | Signature | + + + + + + | Phosphorus | 1.8 (L)Comment: Testing | 2.3 - 4.8 mg/dL | [facility] | | | | performed at [facility];888 | | LABORATORY | | | | [address];[place], [place] | | | | | | [address] | | | | + + + + + + + + | Specimen | + + | Blood | + + + + + + + | Performing | Address | City/State/Zipcode | Phone Number | | Organization | | | | + + + + + | [facility] | [address] | [place] [address] | [phone] | + + + + + Magnesium (06/24/2019 5:04 AM PDT) + + + + + + | Component | Value | Ref Range | Performed | Pathologist | | | | | At | Signature | + + + + + + | Magnesium | 1.9Comment: Testing | 1.7 - 2.4 mg/dL | [facility] | | | | performed at [facility];[address] | | LABORATORY | | | | [address];[place], [place] | | | | | | [address] | | | | + + + + + + + + | Specimen | + + | Blood | + + + + + + + | Performing | Address | City/State/Zipcode | Phone Number | | Organization | | | | + + + + + | [facility] | [address] | [place] [address] | [phone] | + + + + + CBC [...] | | | Absolute | performed at [facility];888 | K/uL | LABORATORY | | | | [address];[place], [place] | | | | | | [address] | | | | + + + + + + + + | Specimen | + + | Blood | + + + + + + + | Performing | Address | City/State/Zipcode | Phone Number | | Organization | | | | + + + + + | [facility] | [address] | [place] [address] | [phone] | + + + + + Basic [...] | | | | | | [facility] traceable | | | | | | equation.Testing | | | | | | performed at [facility];888 | | | | | | [address];[place], [place] | | | | | | [address] | | | | + + + + + + + + | Specimen | + + | Blood | + + + + + + + | Performing | Address | City/State/Zipcode | Phone Number | | Organization | | | | + + + + + | [facility] | [address] | [place] [address] | [phone] | + + + + + Phenytoin [...] [facility] | | | | performed at [facility];[address] | | LABORATORY | | | | [address];[place] | | | | | | [address] | | | | + + + + + + + + | Specimen | + + | Blood | + + + + + + + | Performing | Address | City/State/Zipcode | Phone Number | | Organization | | | | + + + + + | [facility] | [address] | [place] [address] | [phone] | + + + + + POC [...] | | | POC | performed at [facility];888 | | LABORATORY | | | | [address];[place] | | | | | | [address] | | | | + + + + + + + + | Specimen | + + | | + + + + + + + | Performing | Address | City/State/Zipcode | Phone Number | | Organization | | | | + + + + + | [facility] | [address] | [place] [address] | [phone] | + + + + + Potassium (06/23/2019 6:39 PM PDT) + + + + + + | Component | Value | Ref Range | Performed | Pathologist | | | | | At | Signature | + + + + + + | K | 4.4Comment: Testing | 3.5 - 4.9 | [facility] | | | | performed at [facility];888 | mmol/L | LABORATORY | | | | [address];[place] | | | | | | [address] | | | | + + + + + + + + | Specimen | + + | Blood | + + + + + + + | Performing | Address | City/State/Zipcode | Phone Number | | Organization | | | | + + + + + | [facility] | [address] | [place] [address] | [phone] | + + + + + Magnesium (06/23/2019 6:39 PM PDT) + + + + + + | Component | Value | Ref Range | Performed | Pathologist | | | | | At | Signature | + + + + + + | Magnesium | 2.2Comment: Testing | 1.7 - 2.4 mg/dL | [facility] | | | | performed at [facility];888 | | LABORATORY | | | | [address];[place], [place] | | | | | | [address] | | | | + + + + + + + + | Specimen | + + | Blood | + + + + + + + | Performing | Address | City/State/Zipcode | Phone Number | | Organization | | | | + + + + + | [facility] | [address] | [place] [address] | [phone] | + + + + + XR [...] mediastinum | | | below the acquired cvygs-yp-hbxf into the upper abdomen. Overlying | | [...] the mediastinum below the | | acquired irygl-ud-osny into the upper abdomen. Overlying EKG leads [...] | | | POC | performed at [facility];888 | | LABORATORY | | | | [address];[place], [place] | | | | | | [address] | | | | + + + + + + + + | Specimen | + + | | + + + + + + + | Performing | Address | City/State/Zipcode | Phone Number | | Organization | | | | + + + + + | [facility] | [address] | [place] [address] | [phone] | + + + + + Lactic Acid (06/23/2019 1:20 PM PDT) + + + + + + | Component | Value | Ref Range | Performed | Pathologist | | | | | At | Signature | + + + + + + | Lactate, | 1.4Comment: Testing | 0.4 - 2.0 | [facility] | | | Serum | performed at [facility];888 | mmol/L | LABORATORY | | | | [address];[place] | | | | | | [address] | | | | + + + + + + + + | Specimen | + + | Blood | + + + + + + + | Performing | Address | City/State/Zipcode | Phone Number | | Organization | | | | + + + + + | [facility] | [address] | [place] [address] | [phone] | + + + + + Hepatic [...] [facility] | | | | performed at [facility];8 | | LABORATORY | | | | [address];[place], [place] | | | | | | [address] | | | | + + + + + + + + | Specimen | + + | Blood | + + + + + + + | Performing | Address | City/State/Zipcode | Phone Number | | Organization | | | | + + + + + | [facility] | [address] | [place] [address] | [phone] | + + + + + Procalcitonin [...] | | | | | | at [facility];[address] | | | | | | [facility];[place] [address] | | | | + + + + + + + + | Specimen | + + | Blood | + + + + + + + | Performing | Address | City/State/Zipcode | Phone Number | | Organization | | | | + + + + + | [facility] | [address] | [place] [address] | [phone] | + + + + + POC Glucose (06/23/2019 11:54 AM PDT) + + + + + + | Component | Value | Ref Range | Performed | Pathologist | | | | | At | Signature | + + + + + + | Glucose, | 101 (H)Comment: Testing | 65 - 99 mg/dL | [facility] | | | POC | performed at [facility];[address] | | LABORATORY | | | | [address];[place] | | | | | | [address] | | | | + + + + + + + + | Specimen | + + | | + + + + + + + | Performing | Address | City/State/Zipcode | Phone Number | | Organization | | | | + + + + + | [facility] | [address] | [place] [address] | [phone] | + + + + + POC [...] | | | POC | performed at [facility];[address] | | LABORATORY | | | | [address];[place], [place] | | | | | | [address] | | | | + + + + + + + + | Specimen | + + | | + + + + + + + | Performing | Address | City/State/Zipcode | Phone Number | | Organization | | | | + + + + + | [facility] | [address] | [place] [address] | [phone] | + + + + + Blood [...] | | | | | performed at [facility];8 | | | | | | [address];[place], [place] | | | | | | [address] | | | | + + + + + + + + | Specimen | + + | | + + + + + + + | Performing | Address | City/State/Zipcode | Phone Number | | Organization | | | | + + + + + | [facility] | [address] | [place] [address] | [phone] | + + + + + Phosphorus (06/23/2019 4:08 AM PDT) + + + + + + | Component | Value | Ref Range | Performed | Pathologist | | | | | At | Signature | + + + + + + | Phosphorus | 4.4Comment: Testing | 2.3 - 4.8 mg/dL | [facility] | | | | performed at [facility];[address] | | LABORATORY | | | | [address];[place], [place] | | | | | | [address] | | | | + + + + + + + + | Specimen | + + | Blood | + + + + + + + | Performing | Address | City/State/Zipcode | Phone Number | | Organization | | | | + + + + + | [facility] | [address] | [place] [address] | [phone] | + + + + + Magnesium (06/23/2019 4:08 AM PDT) + + + + + + | Component | Value | Ref Range | Performed | Pathologist | | | | | At | Signature | + + + + + + | Magnesium | 1.6 (L)Comment: Testing | 1.7 - 2.4 mg/dL | [facility] | | | | performed at [facility];8 | | LABORATORY | | | | [facility] [address];[place], [place] | | | | | | [address] | | | | + + + + + + + + | Specimen | + + | Blood | + + + + + + + | Performing | Address | City/State/Zipcode | Phone Number | | Organization | | | | + + + + + | [facility] | [address] | [place] [address] | [phone] | + + + + + CBC [...] | | | | | performed at [facility];[address] | | | | | | [facility] [address];[place] | | | | | | [address] | | | | + + + + + + + + | Specimen | + + | Blood | + + + + + + + | Performing | Address | City/State/Zipcode | Phone Number | | Organization | | | | + + + + + | [facility] | [address] | [place] [address] | [phone] | + + + + + Basic [...] | | | | | performed at [facility];[address] | | | | | | [address];[place] | | | | | | [address] | | | | + + + + + + + + | Specimen | + + | Blood | + + + + + + + | Performing | Address | City/State/Zipcode | Phone Number | | Organization | | | | + + + + + | [facility] | [address] | [place] [address] | [phone] | + + + + + EEG (06/23/2019 3:43 AM PDT) + + + | Narrative | Performed At | + + + | Jeana Goldstein, Neurodiagnostic Tech 06/23/2019 3:44 | | | [facility] Neuro[facility]ostic [facility] [address] [place] [address] | | | [place] [address] Patient: Steffi Bishop ID: [id number] : | | | 1965 Age: 53 Gender: female Room #: 22706 Physician: | | | Anastasia Argueta Betting Clerks: Jeana Goldstein Ref. Physician: Cary | | | Eduard SHULTZ Recording Date: 06/23/2019 Duration: 00:31:48 | | | Report Date: 06/23/2019 2:20 AM Medications: Ativan, | | | Keppra 2000mg loaded in ER at [place], fentanyl, no sedation | | | History: [...] | | | immediately notified to the call center receptionist provider, Dr. Holland. | | | | [...] | | | Serum | performed at [facility];888 | mmol/L | LABORATORY | | | | [address];[place], [place] | | | | | | [address] | | | | + + + + + + + + | Specimen | + + | Blood | + + + + + + + | Performing | Address | City/State/Zipcode | Phone Number | | Organization | | | | + + + + + | [facility] | [address] | [place] [address] | [phone] | + + + + + XR [...] | | | | [facility], [address] | | LABORATORY | | | | [place] | | | | | | [address]Aadvytu: Testing | | | | | | performed at [facility], [address] | | | | | [address], | | | | | | [place] [address] | | | | + + + + + + + + | Specimen | + + | Body Fluid - Sputum | | specimen obtained by | | aspiration | | (specimen) | + + + + + + + | Performing | Address | City/State/Zipcode | Phone Number | | Organization | | | | + + + + + | [facility] | [address] | [place] [address] | [phone] | + + + + + POC [...] | | | POC | performed at [facility];[address] | | LABORATORY | | | | [address];[place] | | | | | | [address] | | | | + + + + + + + + | Specimen | + + | | + + + + + + + | Performing | Address | City/State/Zipcode | Phone Number | | Organization | | | | + + + + + | [facility] | [address] | [place] [address] | [phone] | + + + + + MRSA [...] | | | | | performed at [facility];[address] | | | | | | [address];[place] | | | | | | [address] | | | | + + + + + + + + | Specimen | + + | Tissue - Both | | anterior nares (body | | structure) | + + + + + + + | Performing | Address | City/State/Zipcode | Phone Number | | Organization | | | | + + + + + | [facility] | [address] | [place] [address] | [phone] | + + + + + documented [...] of Breath, | | | Starting [facility] 06/22/19 at 2326 | | + [...] | | | | AC, NPO, Daytime 1246-8650 Use | | | | | | | NIGHT DOSE for doses scheduled: | | | | | | | HS, 3AM, Nighttime 5903-7704 | | | | | | | [...] | | | | | Starting [facility] 06/22/19 at 2346, | | | [...] | | | | protocol, Starting [facility] 06/22/19 | | | | | [...]
--- OUTSIDE RECORDS SUMMARY | ~2019-07-24 | XMS | Encounter Summary ---
Demographics + + + | Address | [address] | | | [place] [address] | + + + | Home Phone | | + + + | Preferred Language | Unknown | + + + | Marital Status | Single | + + + | Episcopal Affiliation | [id number] | + + + [...] Team Providers + +------+ + | Care Stone Setter Apprentice Name | Role | Phone | + +------+ + PCP | Unavailable | + +------+ + Encounter Details +--------+ + + + + | Date | Type | Department | Care Team | Description | +--------+ + + + + | 08/18/ | Hospital | [facility] GENER[facility] IP | Conversion | Pain | | 2013 | Encounter | CONVERSION [address] | Transaction, | | | | | [address] | Provider Unknown | | | | | [place] | | | | | | [address] | (Fax) | | | | | [phone] | | | +--------+ + + + [...] [place], | | | | | | [place] [address] | | | | | | [phone] | | | | | | | [...]
--- OUTSIDE RECORDS SUMMARY | ~2019-07-24 | XMS | Encounter Summary ---
Demographics + + + | Address | [address] | | | [place] [address] | + + + | Home Phone [...] Team Providers + +------+ + | Care Lambskin Trimmer Name | Role | Phone | + +------+ + PCP | Unavailable | + +------+ + Encounter Details +--------+ + + + + | Date | Type | Department | Care Team | Description | +--------+ + + + + | 05/07/ | Hospital | [facility] | Nivia Liriano, | Tox Eff Nonmed Subst | | 2008 - | Encounter | [facility] | MD Nadine CHRISTIE | | | | | CLINICAL DECISION | ISAAC COHEN, | | | 05/09/ | | [address] | [place] [address] | | | 2008 | | [place], [place] | [phone] | | | | | [address] | | | | | | [phone] | Eleanor Young, | | | | | | MD [address] | | | | | | [place] [address] | | | | | | [phone] | | | | | | | [...] | | | | | | [place] [address] | | | | | | [phone] | | | | | | | [...] Performed At | + + + | [id number] | | | Page 1 RADIOLOGY | | | [facility] / | | | I/P [facility] | | | CENTER NAME: [place] [address] | | | | | | | | | DATE OF : 1965 ORDER NUMBER: [id number] | | | EXAM DATE/TIME: 05/08/2009 05:00 [...] | | | 05/08/2009 07:39 A A [facility]/kenneth/[id number]/ | | | cc: MD TONE PADRON DO | | | MD JASON DE LA ROSA MD | | | ERIN WATKINS MD | | + + + + + | Procedure Note | + + | Maximus Bass - 05/01/2019 5:22 AM PDT | | [id number] Page 1 | | RADIOLOGY [facility] / | | I/P | | [facility] NAME: [place] | | [place] [address] | | | | DATE OF : 1965 | | | | ORDER NUMBER: [id number] | | EXAM DATE/TIME: 05/08/2009 05:00 A [...] | A | | A | | [facility]/kenneth/[id number]/ | | cc: CHIN RESTREPO MD | | TONE ELLISON DO | | ELEANOR YOUNG MD | | JASON COX MD | | ERIN WATKINS MD | + + XR Chest 1 Vw (05/07/2009 2:00 AM PDT) + + | Specimen | + + | | + + + + + | Narrative | Performed At | + + + | [id number] | | | Page 1 RADIOLOGY | | | [facility] / | | | I/P [facility] | | | CENTER [place] [address] | | | | | | | | | DATE OF : 1965 ORDER NUMBER: [id number] | | | EXAM DATE/TIME: 05/07/2009 01:03 A ORDERING PHYSICIAN: RONN | | | ELEANOR Horton ORDER DETAIL: [id number] / / HDI EXAM DESCRIPTION: XR CHEST [...] DT: | | | 05/07/2009 02:54 P [facility]/[id number]/ cc: TONE ELLISON DO | | | MD ERIN DE LA ROSA MD | | + + + + + | Procedure Note | + + | Maximus Bass - 05/01/2019 5:22 AM PDT | | [id number] Page 1 | | RADIOLOGY [facility] / | | I/P | | [facility] NAME: [place] | | [place] [address] | | | | DATE OF : 1965 | | | | ORDER NUMBER: [id number] | | EXAM DATE/TIME: 05/07/2009 01:03 A [...] | A | | P | | [facility]/[id number]/ | | cc: TONE ELLISON DO | [...]
--- OUTSIDE RECORDS SUMMARY | 2019-07-24 10:36 | XMS ---
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 Events No recent Security Events currently on file CRITERIA MET - [facility] [place] CARE PROVIDERS SHEFALI GOLDBERG [facility] 06/21/2018-Current PHONE: Unknown [facility]: [facility] 12/26/2018-[facility] AT PHONE: [phone] Malcolm Zambrano Sonography Technologist/Risk Intern [facility] PHONE: [phone] Malcolm Zambrano Sonography Technologist/Risk Intern [facility] PHONE: Unknown Name Unknown Clinic/Center 06/23/2019-Current PHONE: [phone] [facility] 12/26/2018-Current [facility] PHONE: [phone] RANDY Gomez 07/03/2019-07/03/2019 PHONE: [phone] Guidelines Source: [facility] Guidelines Date: 01/18/2019 Care Coordination: Client receives services at [facility]. For discharge planning and coordination of care, please contact client\T\#39;s\T\nbsp;Risk Intern: Quita Banuelos [facility]\T\nbsp; [phone] Care History Medical/Surgical 07/20/2018 [facility] - PATIENT WAS SEEN BY PCP ON 06/15/18. - PATIENT HAS NO SHOWED TO APTS FOR THE PAST YEAR THE LAST PCP APT WAS ON . 07/19/2018 [facility] PATIENT IS A [facility] MEMBER. PLEASE REFER PATIENT TO [facility] FOR NON EMERGENT MEDICAL NEEDS. [facility] CAN SEE PATIENTS SAME DAY FOR APTS IF PATIENT CALLS FIRST THING IN THE MORNING. [place] VISIT COUNT (12 MO.) 3 [facility] TOTAL 3 NOTE: Visits indicate total known visits. 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 - Nicotine dependence, unspecified, uncomplicated - Epilepsy, unsp, not intractable, with status epilepticus - Major depressive disorder, single episode, unspecified 05/12/2019 21:23 MORE Dia OR TYPE: Emergency COMPLAINT: - WEAKNESS, NAUSEA DIAGNOSES: - Allergy status to analgesic agent status - Hypokalemia - Allergy status to oth drug/meds/biol subst status - Nicotine dependence, unspecified, uncomplicated - Alcohol abuse with intoxication, unspecified - Cannabis abuse with intoxication, unspecified - Other custodial (current) drug therapy - Major depressive disorder, single episode, unspecified INPATIENT VISIT TRACKING (12 MO.) No inpatient visits to display in this time frame [email or web address]
[2019-07-24] MEDS ORDERED: MIDODRINE HCL10 MG PO (10:48)
[2019-07-24] MEDS ORDERED: DILANTIN100 MG PO (10:49)
[2019-07-24] MEDS ORDERED: VITAMIN B-1100 M1 PO (10:49)
[2019-07-24] MEDS ORDERED: BUSPIRONE HCL7.5 MG PO (10:50)
[2019-07-24] MEDS ORDERED: SERTRALINE HCL25 MG PO (10:50)
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
--- NOTE | 2019-07-24 18:04 | NUR ---
PATIENT RESTING IN BED, CALL LIGHT IN REACH, FAMILY IN ROOM. NO OTHER NEEDS AT THIS TIME.
--- NOTE | 2019-07-24 18:13 | NUR ---
Buspar 7.5mg po admin for anxiety.
--- NOTE | 2019-07-24 19:28 | EKG ---
[facility] [address] [facility] [place] [address] Signed Normal sinus rhythm T wave abnormality, consider anterolateral ischemia Prolonged QT Abnormal ECG When compared with ECG of 22-JUN-2019 21:57, fusion complexes are no longer present Vent. rate has decreased BY 45 BPM (RBBB and left anterior fascicular block) is no longer present Confirmed by SEAN GIRON DO ([id number]) on 07/24/2019 7:28:33 PM Electronically Signed By: SEAN GIRON DO 07/24/19 1928 PATIENT NAME: SATHYA CUETO Electrocardiogram DATE OF : 65 PHYSICIAN: SEAN GIRON DO REPORT #: [id number] REPORT IS CONFIDENTIAL AND NOT TO BE RELEASED WITHOUT AUTHORIZATION
--- NOTE | 2019-07-24 19:45 | NUR ---
REPORT RECEIVED FROM DAY SHIFT RN. PT LYING IN BED, ALERT AND ORIENTED. NO QUESTIONS OR CONCERNS AT THIS TIME. BED ALARM ON FOR SAFETY. CALL LIGHT IN REACH.
--- NOTE | 2019-07-24 21:00 | NUR ---
ASSESSMENT COMPLETE. PRN TYLENOL GIVEN FOR HEADACHE. NO SWALLOWING ISSUES NOTED. SBA TO BR, GAIT A LITTLE UNSTEADY. STATES IT STARTED A COUPLE WEEKS AGO AFTER STARTING NEW MEDICATIONS. PT BACK TO BED, ESPERANZA AMB WELL. NO C/O DIZZINESS OR LIGHTHEADEDNESS. PT ALERT AND ORIENTED. BED ALARM ON FOR SAFETY. CALL LIGHT IN REACH.
--- NOTE | 2019-07-24 23:44 | NUR ---
PT RESTING IN BED WITH EYES CLOSED, NAD. RR EVEN AND UNLABORED. BED ALARM ON. CALL LIGHT IN REACH.
--- NOTE | 2019-07-25 02:15 | NUR ---
PT RESTING IN BED WITH EYES CLOSED. AWAKENED FOR VS. UP TO BR WITH SBA TO VOID 400 ML CL YELLOW URINE. BACK TO BED, ESPERANZA WELL. DENIES DIZZINESS. GAIT SOMEWHAT UNSTEADY. BED ALARM ON. CALL LIGHT IN REACH.
--- NOTE | 2019-07-25 04:56 | NUR ---
PT RESTING IN BED WITH EYES CLOSED. NAD. CALL LIGHT IN REACH. BED ALARM ON.
--- NOTE | 2019-07-25 06:18 | NUR ---
CALL LIGHT ANSWERED. PT UP TO BR WITH SBA, GAIT A LITTLE UNSTEADY. MEDICATED FOR 9/10 HEADACHE THAT PT DESCRIBES IS BEHIND HER LEFT EYE AND SX HAVE LASTED ABOUT A MONTH. PT STATES SHE SMOKES MARIJUANA TO CONTROL THE PAIN SHE DOES NOT WANT TO CONTINUE "TAKING PILLS ALL THE TIME." ICE CHIPS GIVEN FOR C/O SCRATCHY THROAT DUE TO INTUBATION AT [facility] ABOUT A MONTH AGO. NO FURTHER REQUESTS AT THIS TIME. CALL LIGHT IN REACH.
--- NOTE | 2019-07-25 07:20 | NUR ---
ASSIST PT UP TO BR, ESPERANZA AMBULATION WELL. PT VOIDS WITHOUT PROBLEMS AND DOES OWN PERICARE. PT UP TO SINK, DOES OWN ORAL CARE. RETURNS TO BED. WATER FILLED AND CRACKERS GIVEN UPON REQUEST. DENIES FURTHER NEEDS OR PAIN.
--- NOTE | 2019-07-25 07:33 | NUR ---
Pt sitting up in bed, alert and oriented x3. Pt reports she still has a headache. Tylenol in use. Pt denies needs at this time. Personal supplies and call light within reach. No needs.
--- NOTE | 2019-07-25 10:33 | NUR ---
PATIENT SITTING IN BED TALKING ON PHONE. PATIENT REFUSED SHOWER, WANTS TO DO WHEN SHE GETS HOME. ORAL CARE DONE. CALL LIGHT IN REACH. NO FURTHER NEEDS AT THIS TIME.
--- NOTE | 2019-07-25 14:34 | NUR ---
In and spoke with Steffi. She is wanting to go home today. States she has been having headaches behind her L eye. States she lives with her daughter and son in law who stays at home. She feels she is safe to dc to home. Plans on going home today.
== END 2019-07-25 12:05 | disposition home or self-care (01) ==
LOC: ED 10:31 → MS 10:34
PROVIDERS: ADMIT Student in an Organized Health Care Education/Training Program
DX: R20.0 Anesthesia of skin (principal); H53.8 Other visual disturbances; R51 Headache; J30.2 Other seasonal allergic rhinitis; F43.10 Post-traumatic stress disorder, unspecified; F32.9 Major depressive disorder, single episode, unspecified; R29.702 NIHSS score 2; G40.909 Epilepsy, unspecified, not intractable, without status epilepticus; Z79.899 Other long term (current) drug therapy; Z88.8 Allergy status to other drugs, medicaments and biological substances
CPT/HCPCS: 36415; 70450; 70551; 71045; 80048; 80053; 80185; 83735; 84484; 85025; 85610; 85730; 93005; 93010; 96372; 96374; 97161; 97165; 99285-25; G0378; G0480; J1650; J2405

== ENCOUNTER 2019-10-24 07:05 | Emergency (ER) | payer OTHER ==
[~2019-10-24] VITALS: Ht 162.6 cm; Wt 54.0 kg
[~2019-10-24 07:05] MED LIST changes: +BUSPIRONE HCL7.5 MG PO; +DILANTIN100 MG PO; +MIDODRINE HCL10 MG PO; +SERTRALINE HCL25 MG PO; +VITAMIN B-1100 M1 PO
--- OUTSIDE RECORDS SUMMARY | 2019-10-24 07:10 | XMS ---
PreManage Notification: SATHYA CUETO Security Burring Wheel Operator Events No recent Security Events currently on file CRITERIA MET - [facility] CARE PROVIDERS MARIAA JONES Dental Hygienist Current PHONE: [phone] SHEFALI GOLDBERG [facility] 06/21/2018-Current PHONE: Unknown SHU BELTRAN Clinic/Center: [facility] 12/26/2018-[facility] AT PHONE: [phone] ART ZAMBRANO Psych Therapist/Steam Hoist Operator [facility] PHONE: [phone] CAROLYN VERGARA MD Psychiatry \T\ Neurology: Psychiatry 07/25/2019-Current PHONE: Unknown Art Zambrano Psych Therapist/Steam Hoist Operator [facility] PHONE: Unknown Name Unknown Clinic/Center 06/23/2019-Current PHONE: [phone] [facility] Primary Care 12/26/2018-Current [facility] PHONE: [phone] RANDY Gomez 07/03/2019-07/03/2019 PHONE: [phone] Guidelines Source: [facility] Guidelines Date: 01/18/2019 Care Coordination: Client receives services at [facility]. For discharge planning and coordination of care, please contact client\T\#39;s\T\nbsp;Steam Hoist Operator: Quita Banuelos [facility]\T\nbs; [phone] Care History Medical/Surgical 07/20/2018 [facility] - PATIENT WAS SEEN BY PCP ON 06/15/18. - PATIENT HAS NO SHOWED TO APTS FOR THE PAST YEAR THE LAST PCP APT WAS ON . 07/19/2018 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 PLEASE REFER PATIENT TO [facility] FOR NON EMERGENT MEDICAL NEEDS. [facility] CAN SEE PATIENTS SAME DAY FOR APTS IF PATIENT CALLS FIRST THING IN THE MORNING. E.D. VISIT COUNT (12 MO.) 4 [facility]. TOTAL 4 NOTE: Visits indicate total known visits. ED/UCC VISIT TRACKING (12 MO.) 10/24/2019 07:06 [facility] [place] TYPE: Emergency COMPLAINT: - SEIZURE 07/24/2019 10:33 [facility] [place] TYPE: Emergency COMPLAINT: - NUMBNESS AND TINGLEING 06/22/2019 20:02 [facility] [place] TYPE: Emergency COMPLAINT: - POSS SEUZURE DIAGNOSES: - Allergy status to oth drug/meds/biol subst status - Unspecified convulsions - Allergy status to analgesic agent status - Other snf (current) drug therapy - Nicotine dependence, unspecified, [...] Cannabis abuse with intoxication, unspecified - Other director long term care (current) drug therapy - Major depressive disorder, single episode, unspecified INPATIENT VISIT TRACKING (12 MO.) 07/24/2019 10:34 [facility] [place] TYPE: Observation COMPLAINT: - FACIAL NUMBNESS DIAGNOSES: - Other seasonal allergic rhinitis - Epilepsy, unsp, not intractable, without status epilepticus - 1 NIHSS score - Anesthesia of skin - Allergy status to oth drug/meds/biol subst status - Other snf (current) drug therapy - Major depressive disorder, single episode, unspecified - Headache - Post-traumatic stress disorder, unspecified - Other visual disturbances [email or web address]
[2019-10-24] MEDS ORDERED: OMEPRAZOLE20 MG PO (07:23)
[2019-10-24] MEDS ORDERED: ZOFRAN4 MG PO (07:24)
[2019-10-24] MEDS ORDERED: VITAMIN D250 MCG PO (07:24)
[2019-10-24] MEDS ORDERED: INDOMETHACIN25 MG PO (07:25)
[2019-10-24] MEDS ORDERED: NASAL DECONGEST30 M2 PO (07:25)
== END 2019-10-24 12:53 | disposition home or self-care (01) ==
LOC: ED 07:05
DX: G40.909 Epilepsy, unspecified, not intractable, without status epilepticus (principal); F32.9 Major depressive disorder, single episode, unspecified; Z88.8 Allergy status to other drugs, medicaments and biological substances; Z88.6 Allergy status to analgesic agent; Z79.899 Other long term (current) drug therapy
CPT/HCPCS: 70450; 80053; 80176; 80185; 81001; 83735; 85025; 96361; 96374; 99284-25; G0480; J2060; J7030

== ENCOUNTER 2020-04-25 03:57 | Emergency (ER) | payer OTHER ==
[~2020-04-25] VITALS: Ht 162.6 cm; Wt 54.0 kg
--- OUTSIDE RECORDS SUMMARY | ~2020-04-25 | XMS | Encounter Summary ---
Demographics + + + | Address | [address] [place] [address] | | | [place] [address] | + + + | Home Phone | | + + + | Preferred Language | Unknown | + + + | Marital Status | Single | + + + | Muslim Affiliation | 1041 | + + + | Race | or | + + + | Ethnic Group | Not or | + + + Author + + + | Author | [facility] | | | and [place] | + + + | Organization | [facility] | | | [...] Team Providers + +------+ + | Care Speed Runner Name | Role | Phone | + +------+ + | Anat Pickett | PCP | | + +------+ + Reason for Visit + +--------+ + | Reason | Onset | Comments | | | Date | | + +--------+ + | Referral | 09/27/ | | | | 2020 | | + +--------+ + Encounter Details +--------+ + + + + | Date | Type | Department | Care Team | Description | +--------+ + + + + | 09/27/ | Telephone | [facility] | Oleg Post | Referral | | 2020 | | GASTROENTEROLOGY | MD [address] | | | | | [address] [place], [place] | | | | | [place], [place] | [address] | | | | | [address] | | | | | | [phone] | | | +--------+ + + + [...] this encounter Miscellaneous Notes Telephone Encounter - Cary Granado 09/27/2019 8:54 AM PSTSee referral notes/communica tions 09/27/2019 Cary Granado Statistical Modeler elephone Encounter - Maci Albrecht - 09/27/2019 8:02 AM Tacho , is calling regarding Referral and would like a call back. Additional Call Details: Requesting call back with the status of scheduling patient [facility] If this is a symptom based call, was patient offered triage? Not Applicable If this is a symptom based call and you were unable to immediately transfer the call to a p rovimike senior clinical study manager was caller made aware that if at any time she feels it is an emergency they sh ould call 911 or go to the nearest emergency room? not applicable documented in this encounter Plan of Treatment Not on filedocumented as of this encounter Visit Diagnoses Not on filedocumented in this encounter"
--- OUTSIDE RECORDS SUMMARY | ~2020-04-25 | XMS | Encounter Summary ---
Demographics + + + | Address | [address] [place] [address] | | | [place] [address] | + + + | Home Phone | | + + + | Preferred Language | Unknown | + + + | Marital Status | Single | + + + | Quaker Affiliation | 1041 | + + + | Race | or | + + + | Ethnic Group | Not or | + + + Author + + + | Author | [facility] | | | and [place] | + + + | Organization | [facility] | | | and [...] Team Providers + +------+ + | Care Material Worker Name | Role | Phone | + [...] + + | 09/20/ | Telephone | [facility] | Keenan Holland, | Appointment | | 2019 | | NEUROLOGY [address] | Dictaphone Technician | | | | | [address] | | | | | | [place], [place] | | | | | | [address] | | | | | | [phone] | | | +--------+ + + + [...] Miscellaneous Notes Telephone Encounter - Keenan Holland, Dictaphone Technician - 09/20/2019 2:34 PM PST#1 Call- L eft message for pt to call us back to confirm. documented in this encounter Plan of Treatment Not on filedocumented as of this encounter Visit Diagnoses Not on filedocumented in this encounter"
--- OUTSIDE RECORDS SUMMARY | ~2020-04-25 | XMS | Encounter Summary ---
Demographics + + + | Address | [address] [place] [address] | | | [place] [address] | + + + | Home Phone | | + + + | Preferred Language | Unknown | + + + | Marital Status | Single | + + + | Adventist Affiliation | 1041 | + + + [...] Team Providers + +------+ + | Care Marble Machine Tender Name | Role | Phone | + [...] + + | 08/01/ | Telephone | [facility] | Keenan Holland, | Records Request | | 2018 | | NEUROLOGY [address] | Proposal Review Analyst | | | | | [address] | | | | | | [place] | | | | | | [address] | | | | | | [phone] | | | +--------+ + + + [...] Miscellaneous Notes Telephone Encounter - Keenan Holland Proposal Review Analyst - 08/01/2019 8:44 AM PSTReceived cris chung from [facility] documented in this encounter Plan of Treatment Not on filedocumented as of this encounter Visit Diagnoses Not on filedocumented in this encounter"
--- OUTSIDE RECORDS SUMMARY | ~2020-04-25 | XMS | Encounter Summary ---
Demographics + + + | Address | [address] [place] [address] | | | [place] [address] | + + + | Home Phone | | + + + | Preferred Language | Unknown | + + + | Marital Status | Single | + + + | Episcopalian Affiliation | 1041 | + + + | Race | or | + + + | Ethnic Group | Not or | + + + Author + + + | Author | [facility] | | | and [place] | + + + | Organization | [facility] | | | [...] Team Providers + +------+ + | Care Mathematics Education Professor Name | Role | Phone | + [...] + + | 11/08/ | Telephone | [facility] | Keenan Holland, | Confirmation | | 2020 | | NEUROLOGY [address] | Gas Welder Apprentice | | | | | [address] | | | | | | [place], [place] | | | | | | [address] | | | | | | [phone] | | | +--------+ + + + [...] Miscellaneous Notes Telephone Encounter - Keenan Holland Gas Welder Apprentice - 11/09/2019 12:24 PM PSTConfirmed appt with Daughter and left message on [employer] mobile. documented in this encounter Plan of Treatment Not on filedocumented as of this encounter Visit Diagnoses Not on filedocumented in this encounter"
--- OUTSIDE RECORDS SUMMARY | ~2020-04-25 | XMS | Encounter Summary ---
Demographics + + + | Address | [address] [place] [address] | | | [place] [address] | + + + | Home Phone | | + + + | Preferred Language | Unknown | + + + | Marital Status | Single | + + + | Pentecostal Affiliation | 1041 | + + + | Race | or | + + + | Ethnic Group | Not or | + + + Author + + + | Author | [facility] | | | and [place] | + + + | Organization | [facility] | | [...] Team Providers + +------+ + | Care Mechanical Maintenance Supervisor Name | Role | Phone | + [...] Provider Unknown | | | | | [place], [place] | [phone] | | | | | [address] | | | | | | [phone] | | | +--------+ + + + [...]
--- OUTSIDE RECORDS SUMMARY | ~2020-04-25 | XMS | Encounter Summary ---
Demographics + + + | Address | [address] [place] [address] | | | [place] [address] | + + + | Home Phone [...] + | Author | [facility] | | | and [place] | + + + | Organization | [facility] | | | [...] Team Providers + +------+ + | Care Psychologist Counseling Name | Role | Phone | + [...] + + | 12/31/ | Telephone | [facility] | Keenan Holland, | Appointment | | 2019 | | NEUROLOGY [address] | Handstitching Machine Collar Feller | | | | | [address] | | | | | | [place], [place] | | | | | | [address] | | | | | | [phone] | | | +--------+ + + + [...] Miscellaneous Notes Telephone Encounter - Keenan Holland, Handstitching Machine Collar Feller - 01/01/2020 11:59 AM Matthew hightower to confirm virual or over the phonie visit with Dr. Argueta. Also asked if we could move her appt to Wed. The 6th at 11am or 1130. documented in this encounter Plan of Treatment Not on filedocumented as of this encounter Visit Diagnoses Not on filedocumented in this encounter"
--- OUTSIDE RECORDS SUMMARY | ~2020-04-25 | XMS | Encounter Summary ---
Demographics + + + | Address | [address] [place] [address] | | | [place] [address] | + + + | Home Phone | | + + + | Preferred Language | Unknown | + + + | Marital Status | Single | + + + | Mormon Affiliation | 1041 | + + + | Race | or | + + + | Ethnic Group | Not or | + + + Author + + + | Author | [facility] | | | and [place] | + + + | Organization | [facility] | | | and [...] Team Providers + +------+ + | Care Yard Hand Name | Role | Phone | + [...] Provider Unknown | | | | | [place], [place] | [phone] | | | | | [address] | | | | | | [phone] | | | +--------+ + + + [...]
--- OUTSIDE RECORDS SUMMARY | ~2020-04-25 | XMS | Encounter Summary ---
Demographics + + + | Address | [address] [place] [address] | | | [place] [address] | + + + | Home Phone [...] | Author | [facility] | | | and [place] | + + + | Organization | [facility] | | | [...] Team Providers + +------+ + | Care Converting Operator Name | Role | Phone | + +------+ + | Anat Pickett | PCP | | + +------+ + Reason for Visit +--------+--------+ + | Reason | Onset | Comments | | | Date | | +--------+--------+ + | Other | 09/26/ | Documentation | | | 2020 | | +--------+--------+ + Encounter Details +--------+ + + + + | Date | Type | Department | Care Team | Description | +--------+ + + + + | 09/26/ | Telephone | [facility] | Mickey | Patricia (Documentation | | 2020 | | NEUROLOGY [address] | [address] | ) | | | | [place] [address] | | | | | | [place] | | | | | | [address] | | | | | | [phone] | | | +--------+ + + + [...] this encounter Miscellaneous Notes Telephone Encounter - Seda Arevalo CMA - 09/26/2019 3:28 PM PSTFaxed over to [facility] Argueta's request. Omeprazole (PRILOSEC) 20 mg TBEC. Fax: [phone]. Fax went through. Telephone Encounter - Seda Arevalo CMA - 09/26/2019 1:47 PM PSTFaxed Rx scripts by Flakito Argueta's request. Indomethacin (INDOCIN) 25 MG cap Phenytoin ( DILANTIN) 100 mg ER cap [facility]. Fax: [phone]. Fax went through. TTelephone Encounter - Seda Arevalo CMA - 09/26/2019 12:49 PM PSTPrinted Lab orders f or patient. She wanted to have labs drawn at [facility] rather then [facility]. Electronically sign ed by Seda Arevalo CMA at 09/26/2019 12:50 PM PSTdocumented in this encounter Plan of Treatment Not on filedocumented as of this encounter Visit Diagnoses Not on filedocumented in this encounter"
--- OUTSIDE RECORDS SUMMARY | ~2020-04-25 | XMS | Encounter Summary ---
Demographics + + + | Address | [address] [place] [address] | | | [place] [address] | + + + | Home Phone | | + + + | Preferred Language | Unknown | + + + | Marital Status | Single | + + + | Zoroastrianism Affiliation | 1041 | + + + | Race | or | + + + | Ethnic Group | Not or | + + + Author + + + | Author | [facility] | | | and [place] | + + + | Organization | [facility] | | | [...] Providers + +------+ + | Care Manager Photography Name | Role | Phone | + [...] | | | | | Tonic-clonic | [address] | [address] | | | | | seizure | [address]ACY [address] | [place] | | | | | disorder | CR, | [place], [place] | | | | | ([facility]) | [place] [address] | [address] Phone: | | | | | | Phone: | [phone] | | | | | | [phone] | Fax: | | | | | | Fax: | [phone] | | | | | | [phone] | | + +--------+ + + + + Encounter Details +--------+ + + + + | Date | Type | Department | Care Team | Description | +--------+ + + + + | 12/03/ | Virtual | [facility] | Anastasia Argueta, | Seizure disorder | | 2020 | Office | NEUROLOGY [address] | [address] | ([facility]) (Primary Dx); | | | Visit | [address] | [place], [place] | Chronic migraine; | | | | [place], [place] | [address] | History of alcohol | | | | [address] | [phone] | abuse | | | | [phone] | | | +--------+ + + + [...] side effects. Clinical discussion length: 21-30 min (48097) Patient has not been seen in office [...] alcohol use. Patient was ad mitted to [facility] in June 2019 with status epilepticus in [...]
--- OUTSIDE RECORDS SUMMARY | ~2020-04-25 | XMS | Encounter Summary ---
Demographics + + + | Address | [address] [place] [address] | | | [place] [address] | + + + | Home Phone | | + + + | Preferred Language | Unknown | + + + | Marital Status | Single | + + + | Oriental Orthodox Affiliation | 1041 | + + + | Race | or | + + + | Ethnic Group | Not or | + + + Author + + + | Author | [facility] | | | and [place] | + + + | Organization | [facility] | | | [...] Team Providers + +------+ + | Care Endbander Name | Role | Phone | + +------+ + PCP | Unavailable | + +------+ + Encounter Details +--------+ + + + + | Date | Type | Department | Care Team | Description | +--------+ + + + + | 09/01/ | Hospital | [facility] | Nivia Liriano Julia, | Tox Eff Nonmed Subst | | 2009 - | Encounter | MEDICAL CENTER | MD Nadine CHRISTIE | | | | | CLINICAL DECISION | [place], | | | 05/09/ | | [address] | [place] [address] | | | 2008 | | [place], [place] | [phone] | | | | | [address] | | | | | | [phone] | Eleanor Young, | | | | | | [address] | | | | | | [place] [address] | | | | | | [phone] | | | | | | | [...] Performed At | + + + | [id number] | | | Page 1 RADIOLOGY | | | [facility] / | | | I/P [facility] MEDICAL | | | CENTER NAME: [place] [address] | | | | | | | | | DATE OF : 1965 ORDER NUMBER: [id number] | | | EXAM DATE/TIME: 05/08/2009 05:00 [...] | | | 05/08/2009 07:39 A A [facility]/kenneth/[id number]/ | | | cc: MD TONE PADRON DO | | | MD JASON DE LA ROSA MD | | | ERIN WATKINS MD | | + + + + + | Procedure Note | + + | Maximus Bass - 05/01/2019 5:22 AM PDT | | [id number] Page 1 | | RADIOLOGY [facility] / | | I/P | | [facility] NAME: SATHYA CUETO | | [place] [address] | | | | DATE OF : 1965 | | | | ORDER NUMBER: [id number] | | EXAM DATE/TIME: 05/08/2009 05:00 A [...] | A | | A | | [facility]//[id number]/ | | cc: CHIN RESTREPO MD | | TONE ELLISON DO | | ELEANOR YOUNG MD | | JASON COX MD | | ERIN WATKINS MD | + + XR Chest 1 Vw (05/07/2009 2:00 AM PDT) + + | Specimen | + + | | + + + + + | Narrative | Performed At | + + + | [id number] | | | Page 1 RADIOLOGY | | | [facility] / | | | I/P [facility] MEDICAL | | | [place] [address] | | | | | | | | | DATE OF : 1965 ORDER NUMBER: [id number] | | | EXAM DATE/TIME: 05/07/2009 01:03 [...] DT: | | | 05/07/2009 02:54 P [facility]/[id number]/ cc: TONE ELLISON DO | | | MD ERIN DE LA ROSA MD | | + + + + + | Procedure Note | + + | Maximus Bass - 05/01/2019 5:22 AM PDT | | [id number] Page 1 | | RADIOLOGY [facility] / | | I/P | | [facility] NAME: SATHYA CUETO | | [place] [address] | | | | DATE OF : 1965 | | | | ORDER NUMBER: [id number] | | EXAM DATE/TIME: 05/07/2009 01:03 A [...] | A | | P | | [facility]/[id number]/ | | cc: TONE ELLISON DO | [...]
--- OUTSIDE RECORDS SUMMARY | ~2020-04-25 | XMS | Encounter Summary ---
Demographics + + + | Address | [address] [place] [address] | | | [place] [address] | + + + | Home Phone | | + + + | Preferred Language | Unknown | + + + | Marital Status | Single | + + + | Mandaeism Affiliation | 1041 | + + + | Race | or | + + + | Ethnic Group | Not or | + + + Author + + + | Author | [facility] | | | and [place] | + + + | Organization | [facility] | | | [...] Providers + +------+ + | Care Supervisor Microbiology Technologists Name | Role | Phone | + [...] + + | 09/22/ | Telephone | [facility] | Keenan Holland, | Appointment | | 2019 | | NEUROLOGY [address] | Practice Management Consultant | | | | | [address] | | | | | | [place], [place] | | | | | | [address] | | | | | | [phone] | | | +--------+ + + + [...] encounter Miscellaneous Notes Telephone Encounter - Keenan Holalnd, Practice Management Consultant - 09/22/2019 12:30 PM PST#2 Call- L eft message for pt to call us back to confirm. documented in this encounter Plan of Treatment Not on filedocumented as of this encounter Visit Diagnoses Not on filedocumented in this encounter"
--- OUTSIDE RECORDS SUMMARY | ~2020-04-25 | XMS | Encounter Summary ---
Demographics + + + | Address | [address] [place] [address] | | | [place] [address] | + + + | Home Phone [...] Author + + + | Author | [facility] | | | and [place] | + + + | Organization | [facility] | | [...] Team Providers + +------+ + | Care Injection Molding Technician Name | Role | Phone | [...] + + | 09/25/ | Telephone | [facility] | Keenan Holland, | Appointment | | 2019 | | NEUROLOGY [address] | Cloud Engineer | | | | | [address] | | | | | | [place], [place] | | | | | | [address] | | | | | | [phone] | | | +--------+ + + + [...] Miscellaneous Notes Telephone Encounter - Keenan Holland, Cloud Engineer - 09/25/2019 10:21 AM PSTConfirmed appt. el ephone Encounter - Mckay Loyd - 09/25/2019 9:55 AM PSTJulie, is returning call for Appointment and would like a call back. Additional Call Details: Returning call to confirm appt. elephone Encounter - Keenan Holland, Cloud Engineer - 09/25/2019 9:21 AM PST#3 Call - [...] not get confirmation.Electronically signed by Keenan Holland, Cloud Engineer at 2019 9:30 AM PSTdocumented in this encounter Plan of Treatment Not on filedocumented as of this encounter Visit Diagnoses Not on filedocumented in this encounter"
--- OUTSIDE RECORDS SUMMARY | ~2020-04-25 | XMS | Encounter Summary ---
Demographics + + + | Address | [address] [place] [address] | | | [place] [address] | + + + | Home Phone [...] Team Providers + +------+ + | Care Club Steward Name | Role | Phone | + [...] | | | | | Tonic-clonic | [address] | [address] | | | | | seizure | [address] | [place] | | | | | disorder | [place], | [place], [place] | | | | | ([facility]) | [place] [address] | [address] Phone: | | | | | | Phone: | [phone] | | | | | | [phone] | Fax: | | | | | | Fax: | [phone] | | | | | | [phone] | | + +--------+ + + + + Encounter Details +--------+ + + + + | Date | Type | Department | Care Team | Description | +--------+ + + + + | 01/09/ | Virtual | [facility] | Anastasia Argueta, | Chronic migraine | | 2020 | Office | NEUROLOGY [address] | MD Alexander JAMES | (Primary Dx); | | | Visit | [address] | [place], [place] | Seizure disorder | | | | [place], [place] | [address] | ([facility]); Neuropathy | | | | [address] | [phone] | | | | | [phone] | | | +--------+ + + + [...] Instructions Patient Instructions Anastasia Argueta MD - 01/10/2020 11:30 AM Kendra Gao a 54 year old patient withhistory of alcohol abuse in past with neuropathy, balance issues and gen eralized tonic clonic seizures and chronic migraine headaches since hospital discharge for darci bowie in Jun 2019. She had recurrent seizures in past off of AEDs as well as breakthrough seizures on Keppra 500 mg bid dose since last visit. Keppra dose increased to 750 mg bid aft er hospital admission for breakthrough seizures in December 2019. Pending results on Keppra lev el from recent tab work. Denies further seizures on Keppra 750 mg bid and denies side effec ts. Plan: Seizures-> Continue Keppra 750 mg bid - We will follow up on lab work for Keppra level - Dose to be adjusted based on lab work Neuropathy->unclear etiology - Stable, discussed fall precautions - Use cane all the time Chronic migraines-> - Improved frequency from daily to 3 days per week after dose increase in propranolol with less intensity days, continue current doseElectronically signed by Anastasia Argueta MD at 02/2020 5:33 PM PDT documented in this encounter Progress Notes Anastasia Argueta MD - 01/10/2020 11:30 AM PDTFormatting of this note might be different fro m the original. Assessment & Plan Steffi Bishop is a 54 year old patient with history of alcohol abuse in past with neuropathy, balance issues and generalized tonic clonic seizures and chronic migraine headaches since h ospital discharge for seizures in Jun 2019. She had recurrent seizures in past off of AEDs a s well as breakthrough seizures on Keppra 500 mg bid dose since last visit. Keppra dose incr eased to 750 mg bid after hospital admission for breakthrough seizures in December 2019. Pendin g results on Keppra level from recent tab work. Denies further seizures on Keppra 750 mg bi d and denies side effects. Plan: Seizures-> Continue Keppra 750 mg bid - We will follow up on lab work for Keppra level - Dose to be adjusted based on lab work Neuropathy->unclear etiology - Stable, discussed fall precautions - Use cane all the time Chronic migraines-> - Improved frequency from daily to 3 days per week after dose increase in propranolol with less intensity days, continue current dose Clinical discussion length: 11-20 min (34501) Patient has not been seen in office within the past 7 days, and outcome of this call is not to recommend soonest available office visit. Follow up Instructions: 2 months Subjective: Patient ID: Steffi Bishop is a 54 y.o. female with history of alcohol abuse, seizures with st atus epilepticus x 2 in 2019 and chronic daily headaches. CC: Follow-up for seizures, headaches Participants: Patient Participant verbally confirmed the choice to initiate care by, and consents to receive care by Telephone. Participant is currently at home HPI: Patient is a 54-year-old woman with history of methamphetamine and alcohol abuse, currently in remission from substance abuse but with ongoing relapses of alcohol use. Patient was ad mitted to [facility] in June 2019 with status epilepticus in [...] started on migraine preventive medications. Interval History: Last visit-12/04/2019 In last visit patient was started on Keppra 500 mg twice daily given recurrent episodes of seizures outside alcohol use per daughter's history in the last visit. Patient was admitted to [facility] for breakthrough seizures on 12/22/2019. Per admission note she w as found to be seizing. patient was found to have another seizure not protecting the airway status continued at which point decision was made to intubate the patient in route to the ED . In the ED patient was given multiple doses of benzos and was loaded up with 1000 mg of K eppra prior to admission" . She was seen by Dr. Jack and her Keppra dose was increased fr om 500 to 750 mg twice daily. Presumed etiology of her seizures was thought to be related t o lowered seizure threshold in the setting of pneumonia. Her urine drug screen was negative and alcohol level was less than 10. Chest x-ray showed left lung infiltration suggestive o f possible pneumonia and was treated with ceftriaxone with clinical improvement as well as n o further seizures after admission. She mentions that she has been doing better since the hospital discharge and feels better on current dose of Keppra at 750 mg twice daily. She de nies any side effects. She has memory issues as she has short term issues but denies any lo ss of awareness. Her daughter was not with her today at the phone visit. She did lab work for Keppra at her [facility] last week but results are not available with us. She e ndorses that her balance is still not very good but she denies any falls or near falls since last visit. She uses cane consistently and it helps. She mentions that she is slowly getting better with pneumonia since discharge and completed the course the course of antibiotics. She denies any fever, cold but has some mild dry cou gh. She endorses headaches with bright lights and about 3 times per week. Lasts for 2-3 elliot rs and intensity is 5-8/10 and she takes ibuprofen which helps. These headaches are She denies missing any doses of Keppra. EEG 12/22/2019: This limited EEG is suggestive of generalized nonspecific cerebral dysfunction. No ictal di scharges were seen. Clinical correlation is recommended. documented in this en counter Plan of Treatment Not on filedocumented as of this encounter Visit Diagnoses + + | Diagnosis | + + | Chronic migraine - Primary Chronic migraine without aura, without mention of | | intractable migraine without mention of status migrainosus | + + | Seizure disorder (HCC) Unspecified epilepsy without mention of intractable epilepsy | + + | Neuropathy Mononeuritis of unspecified site | + + documented in this encounter
--- OUTSIDE RECORDS SUMMARY | ~2020-04-25 | XMS | Encounter Summary ---
Demographics + + + | Address | [address] [place] [address] | | | [place] HANK[place] [address] | + + + | Home Phone [...] Author + + + | Author | [facility] | | | and [place] | + + + | Organization | [facility] | | [...] Team Providers + +------+ + | Care Golf Superintendent Name | Role | Phone | + [...] [address] | | | | | | (FORMERLY [facility]) | [address]VD | | | | | | | [place], [place] | | | | | | | [address] | | | | | | | Phone: | | | | | | | [phone] | | | | | | | Fax: | | | | | | | [phone] | | + + + + + [...] + + | 06/22/ | Hospital | [facility] | Cary Chapa DO | Status epilepticus | | 2019 - | Encounter | [facility] | [address] | ([facility]); Generalized | | | | [address] | [place] [address] | tonic-clonic seizure | | 07/03/ | | [place], [place] | [phone] | ([facility]); H/O ETOH | | 2019 | | [address] | | abuse; Polysubstance | | | | [phone] | Deepak Stanton MD | abuse ([facility]); | | | | | [address] | Methamphetamine | | | | | Beto Kothari MD [address] | intoxication ([facility]LY [facility]); | | | | | [address] | 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[facility]); | | | | | [place] [address] | Post-ictal state | | | | | [phone] | ([facility]LY [facility]); Altered | | | | | | mental status, | | | | | Freddy Gastelum MD | unspecified altered | | | | | [address] | mental status type; | | | | | [place] | Blum coma scale | | | | | [address] | total score 3-8, at | | | | | | hospital admission | | | | | | ([facility]); Hypotension, | | | | | | [...] note might be different from sofi borden. [facility] Service: Hospitalist Discharge Summary Date of [...] coursing through the mediastinum below the acquired qtibt-xu-gjat into the upper abdomen. Overlying EKG leads [...] and drug abusewho presents withstatus epilepticus. [facility] were [facility] and patient was [...] Procedure Component Value Units Date/Time Culture, Blood [[id number]] Collected: 06/27/19 170 Order Status: Completed Lab Status: Preliminary result Updated: 06/29/19726 Specimen: Peripheral Blood Special Requests R.AC Special Requests Testing performed at [facility];[address] [place] [address] RESULT NO GROWTH 2 DAYS RESULT Testing performed at [address] [address] Comment: Testing performed at [facility], [address] [place] [address] Culture, Blood [[id number]] Collected: 06/27/19 165 Order Status: Completed Lab Status: Preliminary result Updated: 06/29/19726 Specimen: Peripheral Blood Special Requests L.AC Special Requests Testing performed at [facility];[address] [place] [address] RESULT NO GROWTH 2 DAYS RESULT Testing performed at [address] [address] Comment: Testing performed at [facility], [address] [place] [address] Disposition: prison Condition: Stable Code Status: Full Code Discharge Procedure Orders Referral to Home Health Referral Priority: Routine Referral Type: Evaluate & Treat Referral Reason: Specialty Services Required Requested Specialty: Home Health Services Number of Visits Requested: 1 Follow up: Anat PickettRAFFI [address] [place] [address] Follow up on 07/04 at 1 PM. [facility] [address] [place] [address] Main Schedule an appointment as soon as possible for a visit intake Enkia. [facility] [place] [facility] [address], [place] [address] Main Go on 07/20/2019 intake; Please arrive at 8:30 a.m. to complete paperwork. Appointment will begin at 9:00 a. m. Anat MonterourmanRAFFI [address] [place] [address] Schedule an appointment as soon as possible for a visit in 1 week [facility] AND [address] [address] Discharge Medications New Medications Details midodrine 10 [...] t his encounter Discharge Instructions Instructions Brandon Edwards, MISAEL - 06/30/2019 Recovering from Addiction: Continuing with [...] and ask for a referral to an alternative financing specialist for a n evaluation. Look in [...] one of these national groups: ? National [place] on Alcoholism and Drug Dependence 005-404-9610 ? National Drug and Alcohol Treatment Referral Service 291-549-ZTKH ([phone]) Date Last Reviewed: 10/07/201619992387-224[address] [employer] [place] [address], [place] [address]. All righ ts reserved. This information is [...] more often than directed. Talk to your pmp regarding the use of this medicine in children. While this medici ne may be prescribed for selected conditions, precautions do apply. What side effects may I notice from receiving this medicine? Side effects that you should report to your doctor or health career development manager as soon as p ossible: allergic reactions like skin rash, itching or hives, swelling of the face, lips, or tong ue chest tightness fast, irregular heartbeat irritable, restless nausea, vomiting sweating unusually bleeding or bruising Side effects that usually do not require medical attention (report to your doctor or health career development manager if they continue or are bothersome): sneezing [...] or health care provider. Copyright 2019 Elsevier Phenytoin Does this test have other names? [...] Before taking a new prescription or an qzsc-gvi-xcl nter medicine, it's best to check about [...] and any illicit drugs you may use. [phone] [employer]. [address] [place] [address], [place] [address]. All righ ts reserved. This information is not intended as a substitute for professional medical care. Always follow your healthcare professional's instructions. Midodrine tablets Brand Names: Orvaten, ProAmatine What is this medicine? MIDODRINE (DC sloan dreen) is used to treat low [...] on your doctor's advice. Talk to your pmp regarding the use of this medicine in children. Special care may be needed. What side effects may I notice from receiving this medicine? Side effects that you should report to your doctor or health career development manager as soon as p ossible: awareness of heart beating blurred vision headache irregular heartbeat, palpitations, or chest pain pounding in the ears skin rash, hives Side effects that usually do not require medical attention (report to your doctor or health career development manager if they continue or are bothersome): change [...] medicine? Visit your doctor or health career development manager for regular checks on your progress. You [...] without asking your doctor or health career development manager for advice. Some ingredients may increase yo ur blood pressure. NOTE:This sheet is a summary. It may not cover all possible information. If you have questi ons about this medicine, talk to your doctor, pharmacist, or health care provider. Copyright 2019 ElseIngagePatient documented in this encounter Medications at Time [...] note might be different from sofi borden. [facility] Service:hospitalist Progress Note Hospital Day: LOS: 10 days SUBJECTIVE Patient Summary: refer to H&P and consult note for details Per ICU 53 y.o.femalewith significant past medical history of PTSD, depression, alcohol abuse, at least one seizure (is listed as the reaction to aspirin in her allergies), hepatitis C vi ral infection and drug abusewho presents withstatus epilepticus. [facility] and patient was [...] coursing through the mediastinum below the acquired ypuzb-je-wvwc into the upper abdomen. Overlying EKG leads [...] recently she came to the hospital at [facility]. CT scan was done over there that [...] Beto Bermeo MD - 9:27 AM PDT [facility] Service:hospitalist Progress Note Hospital Day: LOS: 9 days SUBJECTIVE Patient Summary: refer to H&P and consult note for details Per ICU 53 y.o.femalewith significant past medical history of PTSD, depression, alcohol abuse, at least one seizure (is listed as the reaction to aspirin in her allergies), hepatitis C vi ral infection and drug abusewho presents withstatus epilepticus. [facility] were [facility]fi [facility] and patient was [...] coursing through the mediastinum below the acquired gbcyb-ip-nmnw into the upper abdomen. Overlying EKG leads [...] recently she came to the hospital at [facility]. CT scan was done over [...] Romel Ruiz RN at 07/01/2019 7:00 AM Baudilio Landon RN - 06/30/2019 5:52 P M PDTA/Ox4, up SBA, did not D/C today d/t insurance approval (see SW note), IV fluids contin ue to infuse, VSS Chart check complete Electronically signed by: Baudilio Urbano RN 06/30/2019 17:54 aki Zaldivar Chapl ain - 06/30/2019 5:23 PM PDTMet [...] healing. Well supported by ruben sweeney in [place]. Cutting Room Supervisor provided compassionate, non-judgmental presence, affirmed and e ncouraged expression of emotion, explored the link between her shame and her relationship wi th God, facilitated discussion regarding suffering, Divine trung, and self-compassion, refra med her pain into a source of compassion for the world, provided a Bible per request, and of fered prayer which was accepted. Patient expressed appreciation for oral health therapist visit and state d that a light of hope was sparked in her soul. Carla Fletcher RN - 06/30/2019 4:07 AM PDTVSS throughout shif t. MAP >65. CIWA neg. Pt ambulating to bathroom and c/o no pain. Hourly rounding unevent ful. Chart check complete. Carla Shaver RN Beto Bermeo MD - 2018 8:32 AM PDT [facility] Service:hospitalist Progress Note Hospital Day: LOS: 7 days SUBJECTIVE Patient Summary: refer to H&P and consult note for details Per ICU 53 y.o.femalewith significant past medical history of PTSD, depression, alcohol abuse, at least one seizure (is listed as the reaction to aspirin in her allergies), hepatitis C vi ral infection and drug abusewho presents withstatus epilepticus. [facility] were [facility]fi led and patient was [...] coursing through the mediastinum below the acquired xrdii-uj-zxhm into the upper abdomen. Overlying EKG leads [...] recently she came to the hospital at [facility]. CT scan was done over there that was ne gative. She will be on 300 mg of [...] Esequiel Higginbotham N - 06/28/2019 9:46 PM [id number]: Notified Dr. Campo of potassium of 3.5, per the protocol if pt needs another replacement, notify provider. Dr. Campo ok with giving the recommended 40 mEq of oral potassium. VSS throughout shift. Pt's MAP remained >65. Hourly rounding uneventful. Chart check complete. Carla Shaver RN bleFreddy pabon MD - 1 2:54 PM PDT [facility] Adult Hospitalist Progress Note Hospital Day: 6 Patient Summary: Briefly, 53-year-old female with extensive past medical history most significant for PTSD, depression, active alcohol abuse, active drug abuse, hepatitis C and other chronic comorbid ities who presented to [facility] ER unresponsive with generalized tonic-clonic [...] Bermeo MD - 06/27/2019 9:31 AM PDT [facility] Service:hospitalist Progress Note Hospital Day: LOS: 5 days SUBJECTIVE Patient Summary: refer to H&P and consult note for details Per ICU 53 y.o.femalewith significant past medical history of PTSD, depression, alcohol abuse, at least one seizure (is listed as the reaction to aspirin in her allergies), hepatitis C vi ral infection and drug abusewho presents withstatus epilepticus. [facility] were [facility]fi led and patient was [...] the last 72 hours. Recent Labs 06/26/19 042 PROCALCITONI 0.15 Recent Labs 06/27/1942806/26/19 040 WBC 5.76 7.36 HGB 13.8 12.3 HCT 40.4 35.5 PLT 207 161 Recent Labs 06/27/1942806/26/19 040 NA 138 139 K 3.3* 3.5 CL 104 109 CO2 23 21* BUN 7* 9 CREA 0.5 0.5 CALCIUM 8.6 8.1* MG 1.6* 1.7 PHOS 3.3 2.7 Recent Labs Lab 06/27/19428 MG 1.6* Microbiology Results (72 hrs) No [...] coursing through the mediastinum below the acquired oefcq-sf-jwmm into the upper abdomen. Overlying EKG leads [...] recently she came to the hospital at [facility]. CT scan was done over there that was patricia randolph. Started on fosphenytoin and Keppra. Keppra has [...] and drug abusewho presents withstatus epilepticus. [facility] were [facility]fi [facility] and patient was [...] 23 06/25/19 2300 (!) 86/55 89 22 06/25/190 (!) 64/41 88 25 06/25/192154 (!) 77/50 [...] Not suicida l LABS: Recent Labs Lab 06/26/1940206/25/190 06/24/19 0504 WBC 7.36 9.12 9.90 HGB 12.3 13.1 13.5 HCT 35.5 38.8 39.5 PLT 161 194 221 MONOPCT 4.52 8.42 7.57 Recent Labs Lab 06/26/1940206/25/19 1126 06/25/19 0310 06/24/19 0504 06/23/19 1319 [...] Date PHOS 2.7 06/26/2019 Recent Labs Lab 06/26/19403 06/20/19 0310 06/24/192018 MG 1.7 2.1 1.7 Recent Labs Lab 06/23/19 0422 PHART 7.313* PO2ART 120* FMD6YBP 46* L8PCFHJM 98 Diagnostic Imaging: Impressions only: Recent Results [...] ently she came to the hospital at [facility]. CT scan was done over [...] this chart may have been created with [employer] voice recognition software. Occasi onal wrong-word or [...] Mehreen Hayward RN - 06/25/2019 6:54 PM [id number]: pt arrived on unit. MAP 61; 500ml NS bolus given; MAP currently 64. Patient passed swallow eval. Patient has be en sleepy, no seizures. End of shift chart check done. Anastasia Livingston MD - 06/25/2019 10:26 AM PDTFormatting of this note might be dif ferent from the original. [facility] Service: Neurology PROGRESS NOTE Subjective: Patient seen [...] us guide if anti-epileptics are necessary for group home - I discussed at length with patient today about importance of discontinuing substance abus e and alcohol given recent very severe seizures - Please have [patient follow up with neurology clinic in 6-8 weeks. - General care per primary team. Thank you for allowing us to participate in your patient care. Please call us with [employer]. I will be signing off on patient as today is last day of my call. Please reach out to neurologist button sewer starting tomorrow for any additional concerns. If brain imaging is obta ined, please reach out to me to discuss results if needed. Mana Berger ARN P - 06/25/2019 7:32 AM PDT [facility] Service: Foreign Food Specialty Cook Progress Note Steffi Bishop 53 y.o. Hospital [...] abuse who presents with status epilepticus. [facility] were called and patient was found [...] MDMA ). Resolved. ? Head CT at [facility] was negative. ? Neurology (Dr. Argueta) is following. CT imaging obtained per Neurology recommendations. ? AED management per Neurology. Discontinued keppra per Neurology recommendations. Will nee d phenytoin 300 mg ER daily on discharge. Alcohol abuse: unknown when she last drank, but family reports heavy daily drinking. ? CIWA protocol with prn Ativan. ? Thiamine, folic acid supplementation daily. Polysubstance abuse: counselor manager on cessation. CV: Hypotension, requiring Levophed to [...] of infection. Blood cultures were drawn at [facility] facility prior to transfer: NGTD HEME: No [...] Percent change: 17.6% Pt IS fluid responsive. Foreign Food Specialty Cook notified. Anastasia Livingston MD - 06/24/2019 9:30 AM PDTFormatting of this no te might be different from the original. [facility] Service: Neurology PROGRESS NOTE Subjective: Subjective: Patient [...] your patient care. Please call us with [facility]. [facility] HospitalBryan blake MD - 06/24/2019 8:30 AM [facility] Service: Continuous EEG Monitoring Progress Note Brief [...] any questions or concerns. Bryan Celis MD [facility] Clinical Neurophysiologist llis, Carynikhil irene, HISTORY TUTOR - 06/24/2019 7:08 AM PDTFormatting of this note might be different from the orig inal. [facility] Service: Foreign Food Specialty Cook Progress Note Steffi Bishop 53 y.o. Hospital [...] abuse who presents with status epilepticus. The [facility] were called and patient was [...] and MDMA ). ? Head CT at [facility] was negative. ? Cont Keppra and fosphenytoin, [...] monitor closely. Blood cultures were drawn at [facility] prior to transfer; I followed up wit [...] Shaquille Recinos MD - 06/23/2019 9:53 AM [facility] Service: Continuous EEG Monitoring Progress Note Patient [...] any questions or concerns. Bryan Celis MD [facility] Clinical Neurophysiologist documented in th is encounter H&P Cary Evans, DO - 06/23/2019 12:16 AM PDTFormatting of this note might be different from t david original. [facility] Service: Foreign Food Specialty Cook Admission History & Physical Steffi Bishop 53 y.o. Date of Admission: 06/22/2019 Requesting Physician: Dr. Sanford, Emergency Department at [facility] Indication for ICU Admission: status epilepticus History [...] abuse who presents with status epilepticus. [facility] were called and patient was found [...] May be related to drug use wi th UDS positive for meth and MDMA. Cont [...] EEG Procedure Note Referring Physician: Cary Chapa Physician: Bryan Celis Recording Times: From 3:17AM [...] norepinephrine 3 mcg/min (06/24/19 1314) phenylephrine Stopped (06/23/19 2145) propofol infusion 35 mcg/kg/min (06/24/19 0442) PRN Meds:.acetaminophen, albuterol-ipratropium, Hypoglycemia Management AND POCT [...] is an abnormal continuous EEG representing a jrtk-ck-hhgfvmja encephalopathy. Diffuse beta activity is nonspecific but [...] is suggested if indicated. Bryan Celis MD [facility] Clinical Neurophysiologist Cary Arnold ARNP - 06/23/2019 6:07 PM PDTFormatting of this note might be different from the orig inal. [facility] Service: Foreign Food Specialty Cook BEDSIDE PROCEDURE NOTE Patient: (Age): MRN: Admit: Length of stay in days: Steffi Bishop 1965 (53 y.o.) [id number] 06/22/2019 1 ICU Left internal jugular vein Triple Lumen Catheter Procedure Time out was called: 17:30 Date and time of procedure: 06/23/2019 at 17:35 Indication: vascular access and centrally administered medications Consent: Risks, benefits, and alternatives were discussed with the patient and/or the [facility] regarding this procedure. Major risks include [...] e might be different from the original. [facility] Neurodiagnostic Dept [address] [place] [address] Patient: Steffi Bishop ID: [id number] : 1965 Age: 53 Gender: female Room #: 54639 Physician: Anastasia Argueta Service Center Supervisor: Jeana Goldstein Ref. Physician: Cary Eduard DO Recording Date: 06/23/2019 Duration: 00:31:48 Report Date: 06/23/2019 2:20 AM Medications: Ativan, Keppra 2000mg loaded in ER at [place], fentanyl, no sedation History: Patient found down [...] finding s were immediately notified to the button sewer provider, Dr. Holland. docume nted in this [...] through the use of telemedicine. Telemedicine enables [facility] care providers at different locations to provide [...] for years. 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 PMH: Past Medical History: Diagnosis Date Alcohol abuse Depression Drug abuse (HCC) methamphetamine and MDMA Generalized tonic-clonic seizure ([facility]) 06/22/2019 PTSD (post-traumatic stress disorder) Status epilepticus ([facility]) 06/22/2019 Social History Socioeconomic History Marital status: [...] DR tablet 40 mg, 40 mg, Oral, SHERI AC, Beto Kothari MD, 40 mg at [...] Cary Eduard, DO sodium chloride 0.9% (NS) infusion, , [...] Delacruz DO - 06/26/2019 5:39 AM PDT [facility] Service: Foreign Food Specialty Cook Follow up consult note Setffi Bishop 53 y.o. Hospital Day: LOS: 4 [...] abuse who presents with status epilepticus. [facility] were called and patient was found [...] dyspnea, chest pain or discomfort. Reports having ez e nausea, vomiting of food (no blood) [...] and MDMA ). ? Head CT at [facility] was negative. ? Neurology (Dr. Argueta) is [...] showed normal EF. Will h ave daytime waste machine offbearer team review CXR. GI/NUTRITION: General diet. No active issues. RENAL/LYTES: No acute issues. Monitor BMP. ID: No evidence of infection. Blood cultures were drawn at [facility] prior to transfer d/t fever in ED [...] on dopamine infusion. Please call t he waste machine offbearer team if she has worsening BP or [...] Chapa MD Reason for consult: seizures Assessment/Recommendations: [facility] Service: Neurology Date of Admission: 06/21/19 History [...] tonic-clonic seizure witness ed by bystanders and [facility] was called. Unclear details regarding the [...] mg Ativan in route for sedation by [facility]. Patient per nursing report this morning did not have any further clinical seizure activity after being transferred to the ICU. However a stat routine EEG obtained overnight, read by me showed electrographic generalized status epilepticus with four seizures captured on the r ecording back to back. ICU waste machine offbearer was reported about these findings immediately and [...] 4. No pneumothorax. Sign ed by: Daija Curiel, Zully Sign Date/Time: 06/23/2019 12:[address] head [...] finding s were immediately notified to the button sewer provider, Dr. Holland. CEEG: Formal report pending [...] to/from sit Supine to Sit, Level of [place]: independent Transfers Additional Documentation: sit to/from stand Sit-Stand, Level of [place]: independent Gait Gait Comments: WNL Level of [place]: minimal assist (75% patient effort), moderate assist [...] All Transfers Goal Most Recent Value LTG [place] Level modified independent at 06/25/2019 1300 Gait Goal Most Recent Value LTG [place] Level modified independent at 06/25/2019 1300 LTG Assistive Device 2 wheeled walker (FWW) at 06/25/2019 1300 LTG Distance (feet) 150 at 06/25/2019 1300 lan of Enrique Tiwari MSW - 07/03/2019 2:04 PM PDTCare Management Follow-Up Readmission Risk: Medium Current Discharge Plan Anticipated Discharge Disposition: Home Expected DC Date: 07/03/2019 Barriers to Discharge: Pt was denied SNF by her insurance - [employer] [place] [employer] - they re sponded that Pt is appropriate to go home. Steps Taken Toward Discharge: PEDIATRIC CLINICAL NURSE SPECIALIST notified Brandon DOUGLAS and Dr. Kothari. PEDIATRIC CLINICAL NURSE SPECIALIST attempted to notify Pt, was in shower. PEDIATRIC CLINICAL NURSE SPECIALIST p/c left ms with Pt jess ([place] [phone]) for call back. PEDIATRIC CLINICAL NURSE SPECIALIST p/c with Carla at [facility], states they are agreeable to following up with PT after discharge, covers the [facility] area now. Next Steps: Home with Pt dghtr ([place]ina) - Pt dghtr will transport. Follow up with Chemical Dependency and Counseling appointment. Follow up with PCP at [facility]. PEDIATRIC CLINICAL NURSE SPECIALIST met with Pt regarding final discharge, refused home health PT, states she wants to foll ow up with her PCP. PEDIATRIC CLINICAL NURSE SPECIALIST notified Carla with [facility] regarding Pt does not want Home health se rvices. Notifed Carla with decline letter. Discharge Transportation Transportation Needs: Pt dghtr (Catarina [phone]) Electronically signed: KUNAL CLANCY 07/03/2019 14:04 lan of Sally - Brandon Edwards RN - 07/03/2019 8:00 AM PDTProblem: Adult Inpatient Plan of Care Goal: Plan of Care Review Outcome: Ongoing, progressing Goal: Patient-Specific Goal Outcome: Ongoing, progressing Brandon Gallego RN lan o f Sally - Merlnee Martines RN - 07/02/2019 6:46 PM PDT [...] RN at 2018 6:52 PM PDTPlan of Sally - Ivory Brennan RN - 07/02/2019 6:24 [...] audit completed. Ivory Brennan RN lan of Romel Banerjee RN - 07/01/2019 1:48 AM PDTPain, potty, position, possession addressed. Ambulate s to bathroom with SBA. Hourly rounding done. Call light within reach. Problem: Adult Inpatient Plan of Care Goal: Plan of Care Review Outcome: Ongoing, progressing Goal: Patient-Specific Goal Outcome: Ongoing, progressing Goal: Rounds/Family Conference Outcome: Ongoing, progressing lan of Enrique Oliva MSW - 06/30/2019 3:39 PM PDTCare Management Follow-Up Readmission Risk: Medium Current Discharge Plan Anticipated Discharge Disposition: [facility] Facility Expected DC Date: 06/30/2019 Barriers to Discharge: Pt dghtr encouraging Pt to go to [facility]. Steps Taken Toward Discharge: [facility] at [facility] has medically accepted Pt, unf ortunately insurance authorization has to get done via [facility] office in [facility] this will happen on Wednesday. PEDIATRIC CLINICAL NURSE SPECIALIST notified Pt and Pt dghtr (Catarina ). Pt was heartbroken when she heard the news about staying until Wednesday, Pt has hx o f PTSD and Major Depressive Disorder. PEDIATRIC CLINICAL NURSE SPECIALIST referred Cutting Room Supervisor to follow up. PEDIATRIC CLINICAL NURSE SPECIALIST notified Dr. Marilee chopra as well. Next Steps: Pending insurance authorization for [facility]. With Pt and Pt dghtr (Catarina), PEDIATRIC CLINICAL NURSE SPECIALIST provided option of going home with Home health PT and OT provided by [facility]. Pt dghtr and Pt wants to stay until Tuesday 07/03. 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 Discharge Transportation Transportation Needs: Pt dghtr ([place] [phone]) to transport when ready. Pending at: [facility] [address] [place] [address] Facility: [phone] [facility] (Admissions): [phone] Electronically signed: KUNAL CLANCY 06/30/2019 15:40 lan of Sally - Sindhu Hudson PT - 06/30/2019 2:20 PM PDT Physical Therapy Treatment Note Recommended discharge disposition: custodial facility(reports dtr has to work alot an [...] Bed Mobility Supine to Sit, Level of [place]: independent Sit to Supine, Level of [place]: independent Transfers Sit-Stand, Level of [place]: stand by assist Stand-Sit, Level of [place]: supervised Enp-Kpbef-Vva, Assistive Device: none Safety Issues: balance decreased during turns Impairments: (poor safety awareness) Gait Level of [place]: stand by assist, contact guard assist Assistive [...] All Transfers Goal Most Recent Value LTG [place] Level modified independent at 06/25/2019 1300 Gait Goal Most Recent Value LTG [place] Level modified independent at 06/25/2019 1300 LTG [...] mi ght be different from the original. [facility] FACILITY TRANSFER ORDERS Patient Name: Steffi Bishop [...] limb(s)): [x] OT Evaluation & Treat [] SELF PAY REPRESENTATIVE Evaluation Treat Wound/Skin Care: [x] Follow current recommendations of the wound team for treatment. [] Wound Vac management per nursing protocol. Labs/Imaging: [] PT/INR: Frequency per SNF provider Goal INR: [] Fingerstick glucose check before meals and bedtime and PRN [] Labs: Follow up: [place] [id number] [place] [id number] Follow up on 07/04 at 1 PM. [facility] [address], [place] [address] Main Schedule an appointment as soon as possible for a visit intake Enkia. [facility] [place] [facility] [address], [place] [address] Main Go on 07/20/2019 intake; Please arrive at 8:30 a.m. to complete paperwork. Appointment will begin at 9:00 a. m. [place] [address] [place] [id number] Schedule an appointment as soon as possible [...] Beto Kothari MD, certify that post hospital custodial care is medically necessary o n a continuing basis for any of the conditions for which he/she received care during this ho spitalization. Additional Orders/Instructions: Physician's signature: Beto kothari MD 06/30/2019 12:32 [facility] USE ONLY: [] Admitting orders verbally reviewed with Admitting Physician, modified where appropriate, and approved. Verbal Order from Date: Time: _ RN name: RN signature: [] Admitting orders reviewed, modified where appropriate, and approved. Physician's signature: Date: Time: [facility] - Carla Shaver RN - 06/29/2019 9:47 [...] Sarmiento RN lan of Care - Jannie Curry RD - 06/29/2019 3:51 PM PDT Problem: Oral Intake Inadequate Goal: Improved Oral Intake Pt will consume >75% meals/snacks/supplements Outcome: Ongoing, progressing NUTRITION NOTE Summary High risk follow-up. Met with pt. She reports her appetite is improving. She ordered breakf ast - potatoes, eddy, Mozambican muffin, Oj. Would like to try a supplement. Nutrition [...] RD 06/29/2019 15:51 lan of Care - Maris Singh, PEDIATRIC CLINICAL NURSE SPECIALIST - 06/29/2019 10:37 AM PDTBehavioral Health Specialist received referral from Enrique Trust Vault Clerk. I met with patient whom was agreeable [...] to reconnect her with outpatient treatment at [facility]. I asked patient if she would like assistance with coordinating her services so she may have a plan upon discharge to which patient agreed. We contacted [facility] and Patient provided a Voicemail requesting they return her call to her daughter Sherry mosqueda's cell. Patient noted working with an RN by the name of Mei Waite whom she can als o reach out to for support at this location. Patient and I then contacted [facility] whom she used to be enrolled with [...] be provided to medication management services as n eeded. Patient was provided with typed copy of resouces discussed, as well as coordinate appointme nt date and instructions for [facility]. Information was also included in AVS with patient consent. lan of Car adore - Carla Shaver RN - 06/28/2019 10:24 PM [...] out this was her 6th day at [facility] as pt thought it was her 1st. Pt expresses desire to "make better decisions." Mood/Behavior: calm, cooperative, tearful Orientation: disoriented to, situation, time Bed Mobility Supine to Sit, Level of [place]: supervised Sit to Supine, Level of [place]: modified independent Transfers Sit-Stand, Level of [place]: contact guard assist Stand-Sit, Level of [place]: stand by assist Jbg-Tfabm-Imm, Assistive Device: gait belt, 2 wheeled walker (FWW) Gait Gait Comments: Increased lateral sway and occasional scissoring with no AD requiring min A to steady. Level of [place]: minimal assist (75% patient effort) Assistive Device: [...] All Transfers Goal Most Recent Value LTG [place] Level modified independent at 06/25/2019 1300 Gait Goal Most Recent Value LTG [place] Level modified independent at 06/25/2019 1300 LTG Assistive Device 2 wheeled walker (FWW) at 06/25/2019 1300 LTG Distance (feet) 150 at 06/25/2019 1300 PT Time Calculation Individual Start Time: 1540 Individual Stop Time: 1621 Individual Total Time: 41 PT Total Treatment Time: 41 lan of Sally - Nathan ts, DIMPLE Pineda Encephalographer - 06/28/2019 2:34 PM PDTCare Management Follow-Up Readmission Risk: Medium Current Discharge Plan Anticipated Discharge Disposition: Daughter's home, Catarina Cardoso in [place]. Expected DC Date: 06/29/19 Barriers to Discharge: none Steps Taken Toward Discharge: PEDIATRIC CLINICAL NURSE SPECIALIST student called Catarina Hunt to ask if she would pick her mot her up tomorrow, left a voicemail. Next Steps: Community Support Services Community Agency Name: [facility] Other Resources: Pt said she had a prescriber at [employer] but didn't kn ow the name. PEDIATRIC CLINICAL NURSE SPECIALIST student called [employer] and her account has been closed out. She will need a new referral to go back. PEDIATRIC CLINICAL NURSE SPECIALIST student called [facility] to make an appointment with her therapist but had to leave a voicemail. Discharge Transportation Transportation Needs: Daughter might be able to transport. Notes: PEDIATRIC CLINICAL NURSE SPECIALIST student met with Steffi. Pt was given resources for an [employer], low-income housing and housing assistance program. She agreed to meet with Maris from [facility]. KUNAL brown left a voicemail for Maris to meet with her. Steffi has an appointment with her PCP Anat Pickett 07/04/19 at 1 PM at [facility]. Electronically signed: DIMPLE Tapia Encephalographer 06/28/2019 14:34 lan of Sally - Antionette Chapa T, PT - 06/27/2019 4:27 PM PDT Physical [...] Device: none Supine to Sit, Level of [place]: stand by assist(due to velocity of movement) Sit to Supine, Level of [place]: modified independent Transfers Additional Documentation: sit to/from stand Sit-Stand, Level of [place]: minimal assist (75% patient effort) Stand-Sit, Level of [place]: minimal assist (75% patient effort) Lkp-Xpwre-Pga, Assistive Device: gait belt, 2 wheeled walker (FWW) Gait Gait Comments: rapid velocity, forward trunk flexion that increases without AD Level of [place]: minimal assist (75% patient effort) Assistive Device: [...] All Transfers Goal Most Recent Value LTG [place] Level modified independent at 06/25/2019 1300 Gait Goal Most Recent Value LTG [place] Level modified independent at 06/25/2019 1300 LTG [...] Barriers to Discharge: Pt is homeless from [facility] Steps Taken Toward Discharge: Initial assessment Next Steps: Homeless resources for [facility]. Will follow up with Pt regarding he [...] of Care Review 06/26/2019 1127 by Mehreen Calderon RN Outcome: [...] and Wellbeing Outcome: Ongoing, progressing lan of Sally - Babatunde Murrieta PT - 06/25/2019 1:00 PM PDTFormatting of [...] to/from sit Supine to Sit, Level of [place]: minimal assist (75% patient effort), moderate assist (50% patient effort) Transfers Additional Documentation: sit to/from stand Sit-Stand, Level of [place]: minimal assist (75% patient effort), moderate assist (50% patient effort) Gait Level of [place]: minimal assist (75% patient effort), moderate assist [...] All Transfers Goal Most Recent Value LTG [place] Level modified independent at 06/25/2019 1300 Gait Goal Most Recent Value LTG [place] Level modified independent at 06/25/2019 1300 LTG Assistive Device 2 wheeled walker (FWW) at 06/25/2019 1300 LTG Distance (feet) 150 at 06/25/2019 1300 Babatunde Sotelo PT, DPT oals of Tyler Romo MD - 06/25/2019 10:44 AM PDTGoals kelsy Zavala Spoke with dtr and son, discussed overall [...] call for as sistance. lan of Antionette Pelayo, Storm - 06/24/2019 2:44 PM PDT Problem: Device-Related Complication Risk (Mechanical Ventilation, Invasive) Goal: Optimal Device Function Outcome: Met Problem: Inability to Wean (Mechanical Ventilation, Invasive) Goal: Mechanical Ventilation Liberation Outcome: Met Patient was placed on a spontaneous breathing trial at 950 with no complications. She was extubated at 1105 to 2L nasal cannula. Electronically signed by Peter Arcos, FOXING CLOSER at 06/06 5:31 PM PDTPlan of Marylu [...] to use. Discussed possible need for SNF. [facility] is the only option in [place] but sister not very happy with that option. Discussed Amaury Galvin without any resolution from famil y about choice. Will need to discuss options with pt when she is more awake and alert. Pt wa s extubated this morning. She is currently sleeping and not participating in our discussion . Pt has 2 sons in [place] as well, Zacarias and Enrique. All children are in their 30's. Pt is on food stamps. No income. Unemployed for the ost part. "Can't keep a job" per negin strauss. Pt is . Status Prior to Admission or Illness Arrival From: admitted as an inpatient Lives With: friend(s) Living Arrangements: homeless Caregiver For: no one Patient s Caregiver: no one Functional Status: independent, does not use DME Caregiving Concerns: no day care home mother pr family member to care for pt [...] Addressed: homelessness/housing concerns Services Anticipated at Discharge: custodial facility Equipment Used at Home: none Pharmacy/Medication Needs: Transportation Needs: family or friend will provide Initial Plan Anticipated Discharge Disposition: Expected DC Date: other (see comments) Notes: Electronically signed: KUNAL MACIAS 06/24/2019 13:46 lan of Care - Marylu Berg MSW - 06/23/2019 2:29 PM PDTUnable to complete assessment as pt's Aunt has not yet returned my call. I called [facility] and obtained the name/number of pt's philipp mckinney. Her name is Catarina Oropeza and her reportedl address is [address], [place], [place]. ([phone]). I left a message on the number though Omayra was unsure if it was the correct number. I called the [facility] ([phone]) and requested that they go by daughters home to s ee if she is there and to call me back. Addendum: Received t/c from pt's daughter. She informed that she would be [facility] after work around 6pm. Notified RN. Will try to complete assessment tomorrow. Per Omayra, pt drinks daily. She smokes MJ daily. There have been times of illicit drug use. lan of Sally - Max Laura, RD - 06/23/2019 1:55 [...] 10:40 AM PDTCalled pt's Aunt Margo Hinson ([phone]) and requested a return call with time [...] 4.1Comment: Testing | 3.5 - 4.9 | [facility] | | | | performed at [facility];888 | mmol/L | LABORATORY | | | | [address];[place] | | | | | | [address] | | | | + + + + + + + + | Specimen | + + | Blood | + + + + + + + | Performing | Address | City/State/Zipcode | Phone Number | | Organization | | | | + + + + + | [facility] | [address] | [place] [address] | [phone] | + + + + + Potassium (07/03/2019 4:17 AM PDT) + + + + + + | Component | Value | Ref Range | Performed | Pathologist | | | | | At | Signature | + + + + + + | K | 3.9Comment: Testing | 3.5 - 4.9 | [facility] | | | | performed at [facility];888 | mmol/L | LABORATORY | | | | [address] [facility];[place], [place] | | | | | | [address] | | | | + + + + + + + + | Specimen | + + | Blood | + + + + + + + | Performing | Address | City/State/Zipcode | Phone Number | | Organization | | | | + + + + + | [facility] | [address] | [place] [address] | [phone] | + + + + + Phosphorus (07/03/2019 4:17 AM PDT) + + + + + + | Component | Value | Ref Range | Performed | Pathologist | | | | | At | Signature | + + + + + + | Phosphorus | 4.6Comment: Testing | 2.3 - 4.8 mg/dL | [facility] | | | | performed at [facility], [address] | | LABORATORY | | | | [address], | | | | | | [place] [address] | | | | + + + + + + + + | Specimen | + + | Blood | + + + + + + + | Performing | Address | City/State/Zipcode | Phone Number | | Organization | | | | + + + + + | [facility] | [address] | [place] [address] | [phone] | + + + + + Magnesium (07/03/2019 4:17 AM PDT) + + + + + + | Component | Value | Ref Range | Performed | Pathologist | | | | | At | Signature | + + + + + + | Magnesium | 2.2Comment: Testing | 1.7 - 2.4 mg/dL | [facility] | | | | performed at [facility], [address] | | LABORATORY | | | | [address], | | | | | | [place] [address] | | | | + + + + + + + + | Specimen | + + | Blood | + + + + + + + | Performing | Address | City/State/Zipcode | Phone Number | | Organization | | | | + + + + + | [facility] | [address] | [place] [address] | [phone] | + + + + + Potassium (07/02/2019 4:30 AM PDT) + + + + + + | Component | Value | Ref Range | Performed | Pathologist | | | | | At | Signature | + + + + + + | K | 4.1Comment: Testing | 3.5 - 4.9 | [facility] | | | | performed at [facility];888 | mmol/L | LABORATORY | | | | [address];[place], [place] | | | | | | [address] | | | | + + + + + + + + | Specimen | + + | Blood | + + + + + + + | Performing | Address | City/State/Zipcode | Phone Number | | Organization | | | | + + + + + | [facility] | [address] | [place] [address] | [phone] | + + + + + Phosphorus (07/02/2019 4:30 AM PDT) + + + + + + | Component | Value | Ref Range | Performed | Pathologist | | | | | At | Signature | + + + + + + | Phosphorus | 4.6Comment: Testing | 2.3 - 4.8 mg/dL | [facility] | | | | performed at [facility], [address] | | LABORATORY | | | | [address], | | | | | | [place] [address] | | | | + + + + + + + + | Specimen | + + | Blood | + + + + + + + | Performing | Address | City/State/Zipcode | Phone Number | | Organization | | | | + + + + + | [facility] | [address] | [place] [address] | [phone] | + + + + + Magnesium (07/02/2019 4:30 AM PDT) + + + + + + | Component | Value | Ref Range | Performed | Pathologist | | | | | At | Signature | + + + + + + | Magnesium | 2.1Comment: Testing | 1.7 - 2.4 mg/dL | [facility] | | | | performed at [facility], [address] | | LABORATORY | | | | [facility], | | | | | | [place] [address] | | | | + + + + + + + + | Specimen | + + | Blood | + + + + + + + | Performing | Address | City/State/Zipcode | Phone Number | | Organization | | | | + + + + + | [facility] | [address] | [place] [address] | [phone] | + + + + + Renal [...] 3.6 | 2.3 - 4.8 mg/dL | [facility] [...] | | | | | performed at [facility];888 | | | | | | [facility];[place], [place] | | | | | | [address] | | | | + + + + + + + + | Specimen | + + | | + + + + + + + | Performing | Address | City/State/Zipcode | Phone Number | | Organization | | | | + + + + + | [facility] | [address] | [place] [address] | [phone] | + + + + + Phosphorus (07/01/2019 7:41 AM PDT) + + + + + + | Component | Value | Ref Range | Performed | Pathologist | | | | | At | Signature | + + + + + + | Phosphorus | 3.5Comment: Testing | 2.3 - 4.8 mg/dL | [facility] | | | | performed at [facility];[address] | | LABORATORY | | | | [address];[place] | | | | | | [address] | | | | + + + + + + + + | Specimen | + + | | + + + + + + + | Performing | Address | City/State/Zipcode | Phone Number | | Organization | | | | + + + + + | [facility] | [address] | [place] [address] | [phone] | + + + + + Magnesium (07/01/2019 7:41 AM PDT) + + + + + + | Component | Value | Ref Range | Performed | Pathologist | | | | | At | Signature | + + + + + + | Magnesium | 1.8Comment: Testing | 1.7 - 2.4 mg/dL | [facility] | | | | performed at [facility];[address] | | LABORATORY | | | | [address];[place] | | | | | | [address] | | | | + + + + + + + + | Specimen | + + | | + + + + + + + | Performing | Address | City/State/Zipcode | Phone Number | | Organization | | | | + + + + + | [facility] | [address] | [place] [address] | [phone] | + + + + + Potassium (07/01/2019 7:41 AM PDT) + + + + + + | Component | Value | Ref Range | Performed | Pathologist | | | | | At | Signature | + + + + + + | K | 3.9Comment: Testing | 3.5 - 4.9 | [facility] | | | | performed at [facility];888 | mmol/L | LABORATORY | | | | [address];[place] | | | | | | [address] | | | | + + + + + + + + | Specimen | + + | | + + + + + + + | Performing | Address | City/State/Zipcode | Phone Number | | Organization | | | | + + + + + | [facility] | [address] | [place] [address] | [phone] | + + + + + Potassium (06/30/2019 10:31 AM PDT) + + + + + + | Component | Value | Ref Range | Performed | Pathologist | | | | | At | Signature | + + + + + + | K | 3.4 (L)Comment: Testing | 3.5 - 4.9 | [facility] | | | | performed at [facility];888 | mmol/L | LABORATORY | | | | [address];[place], [place] | | | | | | [address] | | | | + + + + + + + + | Specimen | + + | Blood | + + + + + + + | Performing | Address | City/State/Zipcode | Phone Number | | Organization | | | | + + + + + | [facility] | [address] [facility] | [place] [address] | [phone] | + + + + + Phosphorus (06/30/2019 5:08 AM PDT) + + + + + + | Component | Value | Ref Range | Performed | Pathologist | | | | | At | Signature | + + + + + + | Phosphorus | 3.0Comment: Testing | 2.3 - 4.8 mg/dL | [facility] | | | | performed at [facility], [address] | | LABORATORY | | | | [address], | | | | | | [place] [address] | | | | + + + + + + + + | Specimen | + + | Blood | + + + + + + + | Performing | Address | City/State/Zipcode | Phone Number | | Organization | | | | + + + + + | [facility] | [address] | [place] [address] | [phone] | + + + + + Magnesium (06/30/2019 5:08 AM PDT) + + + + + + | Component | Value | Ref Range | Performed | Pathologist | | | | | At | Signature | + + + + + + | Magnesium | 2.0Comment: Testing | 1.7 - 2.4 mg/dL | [facility] | | | | performed at [facility], [address] | | LABORATORY | | | | [address], | | | | | | [place] [address] | | | | + + + + + + + + | Specimen | + + | Blood | + + + + + + + | Performing | Address | City/State/Zipcode | Phone Number | | Organization | | | | + + + + + | [facility] | [address] | [place] [address] | [phone] | + + + + + Renal [...] (L) | 3.6 - 5.0 g/dL | [facility] | | | | | | LABORATORY | | + + + + + + | Phosphorus | 2.9 | 2.3 - 4.8 mg/dL | [facility] | | | | | | LABORATORY | | + + + + + + | Estimated | >60Comment: GFR <60: | >60 | [facility] | | | GFR | [...] | | | | | performed at [facility], [address] | | | | | | [facility], | | | | | | [place] [address] | | | | + + + + + + + + | Specimen | + + | Blood | + + + + + + + | Performing | Address | City/State/Zipcode | Phone Number | | Organization | | | | + + + + + | [facility] | [address] | [place] [address] | [phone] | + + + + + Potassium (06/30/2019 4:37 AM PDT) + + + + + + | Component | Value | Ref Range | Performed | Pathologist | | | | | At | Signature | + + + + + + | K | 3.6Comment: Testing | 3.5 - 4.9 | [facility] | | | | performed at [facility];888 | mmol/L | LABORATORY | | | | [address];[place] | | | | | | [address] | | | | + + + + + + + + | Specimen | + + | Blood | + + + + + + + | Performing | Address | City/State/Zipcode | Phone Number | | Organization | | | | + + + + + | [facility] | [address] | [place] [address] | [phone] | + + + + + Potassium (06/29/2019 5:46 PM PDT) + + + + + + | Component | Value | Ref Range | Performed | Pathologist | | | | | At | Signature | + + + + + + | K | 4.1Comment: Testing | 3.5 - 4.9 | [facility] | | | | performed at [facility];888 | mmol/L | LABORATORY | | | | [address];[place], [place] | | | | | | [address] | | | | + + + + + + + + | Specimen | + + | Blood | + + + + + + + | Performing | Address | City/State/Zipcode | Phone Number | | Organization | | | | + + + + + | [facility] | [address] | [place] [address] | [phone] | + + + + + Potassium (06/29/2019 12:22 PM PDT) + + + + + + | Component | Value | Ref Range | Performed | Pathologist | | | | | At | Signature | + + + + + + | K | 3.4 (L)Comment: Testing | 3.5 - 4.9 | [facility] | | | | performed at [facility];888 | mmol/L | LABORATORY | | | | [address];[place], [place] | | | | | | [address] | | | | + + + + + + + + | Specimen | + + | Blood | + + + + + + + | Performing | Address | City/State/Zipcode | Phone Number | | Organization | | | | + + + + + | [facility] | [address] | [place] [address] | [phone] | + + + + + Magnesium (06/29/2019 5:01 AM PDT) + + + + + + | Component | Value | Ref Range | Performed | Pathologist | | | | | At | Signature | + + + + + + | Magnesium | 1.9Comment: Testing | 1.7 - 2.4 mg/dL | [facility] | | | | performed at [facility], [address] | | LABORATORY | | | | [address], | | | | | | [place] [address] | | | | + + + + + + + + | Specimen | + + | | + + + + + + + | Performing | Address | City/State/Zipcode | Phone Number | | Organization | | | | + + + + + | [facility] | [address] | [place] [address] | [phone] | + + + + + Renal [...] | >60Comment: GFR <60: | >60 | [facility] | | | GFR | [...] | | | | | | MDRD IDMO traceable | | | | | | equation.Testing | | | | | | performed at [facility], [address] | | | | | | [facility], | | | | | | [place] [address] | | | | + + + + + + + + | Specimen | + + | Blood | + + + + + + + | Performing | Address | City/State/Zipcode | Phone Number | | Organization | | | | + + + + + | [facility] | [address] | [place] [address] | [phone] | + + + + + CBC [...] [facility] | | | | performed at [facility], [address] | | LABORATORY | | | | [address], | | | | | | [place] [address] | | | | + + + + + + + + | Specimen | + + | | + + + + + + + | Performing | Address | City/State/Zipcode | Phone Number | | Organization | | | | + + + + + | [facility] | [address] | [place] [address] | [phone] | + + + + + Potassium (06/28/2019 5:01 PM PDT) + + + + + + | Component | Value | Ref Range | Performed | Pathologist | | | | | At | Signature | + + + + + + | K | 3.5Comment: Testing | 3.5 - 4.9 | [facility] | | | | performed at [facility];888 | mmol/L | LABORATORY | | | | [address];[place] | | | | | | [address] | | | | + + + + + + + + | Specimen | + + | Blood | + + + + + + + | Performing | Address | City/State/Zipcode | Phone Number | | Organization | | | | + + + + + | [facility] | [address] | [place] [address] | [phone] | + + + + + Potassium (06/28/2019 9:43 AM PDT) + + + + + + | Component | Value | Ref Range | Performed | Pathologist | | | | | At | Signature | + + + + + + | K | 3.1 (L)Comment: Testing | 3.5 - 4.9 | [facility] | | | | performed at [facility];888 | mmol/L | LABORATORY | | | | [facility];[place], [place] | | | | | | [address] | | | | + + + + + + + + | Specimen | + + | Blood | + + + + + + + | Performing | Address | City/State/Zipcode | Phone Number | | Organization | | | | + + + + + | [facility] | [address] | [place] [address] | [phone] | + + + + + Phenytoin [...] [facility] | | | | performed at [facility];[address] | | LABORATORY | | | | [address];[place] | | | | | | [address] | | | | + + + + + + + + | Specimen | + + | Blood | + + + + + + + | Performing | Address | City/State/Zipcode | Phone Number | | Organization | | | | + + + + + | [facility] | [address] | [place] [address] | [phone] | + + + + + POC [...] | | | POC | performed at [facility];[address] | | LABORATORY | | | | [address];[place] | | | | | | [address] | | | | + + + + + + + + | Specimen | + + | | + + + + + + + | Performing | Address | City/State/Zipcode | Phone Number | | Organization | | | | + + + + + | [facility] | [address] | [place] [address] | [phone] | + + + + + Phosphorus (06/28/2019 1:42 AM PDT) + + + + + + | Component | Value | Ref Range | Performed | Pathologist | | | | | At | Signature | + + + + + + | Phosphorus | 2.8Comment: Testing | 2.3 - 4.8 mg/dL | [facility] | | | | performed at [facility], [address] | | LABORATORY | | | | [address], | | | | | | [place] [address] | | | | + + + + + + + + | Specimen | + + | Blood | + + + + + + + | Performing | Address | City/State/Zipcode | Phone Number | | Organization | | | | + + + + + | [facility] | [address] | [place] [address] | [phone] | + + + + + Magnesium (06/28/2019 1:42 AM PDT) + + + + + + | Component | Value | Ref Range | Performed | Pathologist | | | | | At | Signature | + + + + + + | Magnesium | 1.8Comment: Testing | 1.7 - 2.4 mg/dL | [facility] | | | | performed at [facility], [address] | | LABORATORY | | | | [address], | | | | | | [place] [address] | | | | + + + + + + + + | Specimen | + + | Blood | + + + + + + + | Performing | Address | City/State/Zipcode | Phone Number | | Organization | | | | + + + + + | [facility] | [address] | [place] [address] | [phone] | + + + + + CBC [...] | | | Absolute | performed at [facility], [address] | K/uL | LABORATORY | | | | [facility], | | | | | | [place] [address] | | | | + + + + + + + + | Specimen | + + | Blood | + + + + + + + | Performing | Address | City/State/Zipcode | Phone Number | | Organization | | | | + + + + + | [facility] | [address] | [place] [address] | [phone] | + + + + + Basic [...] | | | | | performed at [facility], [address] | | | | | | [facility], | | | | | | [place] [address] | | | | + + + + + + + + | Specimen | + + | Blood | + + + + + + + | Performing | Address | City/State/Zipcode | Phone Number | | Organization | | | | + + + + + | [facility] | [address] | [place] [address] | [phone] | + + + + + Culture, [...] | [facility] | | | Requests | [facility];[address] | | LABORATORY | | | | [address];[place] [address] | | | | + + + + + + | RESULT | NO GROWTH 6 DAYS | | [facility] | | | | | | LABORATORY | | + + + + + + | RESULT | Testing performed at | | [facility] | | | | [facility], [address] [facility] | | LABORATORY | | | | Court [place], [place] | | | | | | [id number]: Testing | | | | | | performed at [facility], [address] | | | | [address] | [address], [place], [place] | | | | | | [address] | | | | + + + + + + + + | Specimen | + + | Blood - Peripheral | | blood specimen | | (specimen) | + + + + + + + | Performing | Address | City/State/Zipcode | Phone Number | | Organization | | | | + + + + + | [facility] | [address] | [place] [address] | [phone] | + + + + + POC Glucose (06/27/2019 5:01 PM PDT) + + + + + + | Component | Value | Ref Range | Performed | Pathologist | | | | | At | Signature | + + + + + + | Glucose, | 95Comment: Testing | 65 - 99 mg/dL | [facility] | | | POC | performed at [facility];[address] | | LABORATORY | | | | [address];[place] | | | | | | [address] | | | | + + + + + + + + | Specimen | + + | | + + + + + + + | Performing | Address | City/State/Zipcode | Phone Number | | Organization | | | | + + + + + | [facility] | [address] | [place] [address] | [phone] | + + + + + Culture, [...] Special | Testing performed at | | [facility] | | | Requests | [facility];[address] | | LABORATORY | | | | [address];[place] [address] | | | | + + + + + + | RESULT | NO GROWTH 6 DAYS | | [facility] | | | | | | LABORATORY | | + + + + + + | RESULT | Testing performed at | | [facility] | | | | [facility], [address] [facility] | | LABORATORY | | | | [place] | | | | | | [id number]: Testing | | | | | | performed at [facility], [address] | | | | | | [place] | | | | | | [address] | | | | + + + + + + + + | Specimen | + + | Blood - Peripheral | | blood specimen | | (specimen) | + + + + + + + | Performing | Address | City/State/Zipcode | Phone Number | | Organization | | | | + + + + + | [facility] | [address] | [place] [address] | [phone] | + + + + + Phosphorus (06/27/2019 4:29 AM PDT) + + + + + + | Component | Value | Ref Range | Performed | Pathologist | | | | | At | Signature | + + + + + + | Phosphorus | 3.3Comment: Testing | 2.3 - 4.8 mg/dL | [facility] | | | | performed at [facility], [address] | | LABORATORY | | | | [address], | | | | | | [place] [address] | | | | + + + + + + + + | Specimen | + + | Blood | + + + + + + + | Performing | Address | City/State/Zipcode | Phone Number | | Organization | | | | + + + + + | [facility] | [address] | [place] [address] | [phone] | + + + + + Magnesium (06/27/2019 4:29 AM PDT) + + + + + + | Component | Value | Ref Range | Performed | Pathologist | | | | | At | Signature | + + + + + + | Magnesium | 1.6 (L)Comment: Testing | 1.7 - 2.4 mg/dL | [facility] | | | | performed at [facility], [address] | | LABORATORY | | | | [address], | | | | | | [place] [address] | | | | + + + + + + + + | Specimen | + + | Blood | + + + + + + + | Performing | Address | City/State/Zipcode | Phone Number | | Organization | | | | + + + + + | [facility] | [address] | [place] [address] | [phone] | + + + + + CBC [...] | | | Absolute | performed at [facility], [address] | K/uL | LABORATORY | | | | [address], | | | | | | [place] [address] | | | | + + + + + + + + | Specimen | + + | Blood | + + + + + + + | Performing | Address | City/State/Zipcode | Phone Number | | Organization | | | | + + + + + | [facility] | [address] | [place] [address] | [phone] | + + + + + Basic [...] | >60Comment: GFR <60: | >60 | [facility] | | | GFR | [...] | | | | | | MDRD IDMO traceable | | | | | | equation.Testing | | | | | | performed at [facility], [address] | | | | | | [facility], | | | | | | [place] [address] | | | | + + + + + + + + | Specimen | + + | Blood | + + + + + + + | Performing | Address | City/State/Zipcode | Phone Number | | Organization | | | | + + + + + | [facility] | [address] | [place] [address] | [phone] | + + + + + POC Glucose (06/26/2019 9:25 PM PDT) + + + + + + | Component | Value | Ref Range | Performed | Pathologist | | | | | At | Signature | + + + + + + | Glucose, | 97Comment: Testing | 65 - 99 mg/dL | [facility] | | | POC | performed at [facility];[address] | | LABORATORY | | | | [address];[place] | | | | | | [address] | | | | + + + + + + + + | Specimen | + + | | + + + + + + + | Performing | Address | City/State/Zipcode | Phone Number | | Organization | | | | + + + + + | [facility] | [address] | [place] [address] | [phone] | + + + + + POC Glucose (06/26/2019 11:45 AM PDT) + + + + + + | Component | Value | Ref Range | Performed | Pathologist | | | | | At | Signature | + + + + + + | Glucose, | 88Comment: Testing | 65 - 99 mg/dL | [facility] | | | POC | performed at [facility];[address] | | LABORATORY | | | | [address];[place], [place] | | | | | | [address] | | | | + + + + + + + + | Specimen | + + | | + + + + + + + | Performing | Address | City/State/Zipcode | Phone Number | | Organization | | | | + + + + + | [facility] | [address] | [place] [address] | [phone] | + + + + + ECG [...] | | | | | | at [facility];[address] [place] [address] | | | | | | [facility];[place] [address] | | | | + + + + + + + + | Specimen | + + | Blood | + + + + + + + | Performing | Address | City/State/Zipcode | Phone Number | | Organization | | | | + + + + + | [facility] | [address] | [place] [address] | [phone] | + + + + + TSH, Reflex Free T4 (06/26/2019 4:03 AM PDT) + + + + + + | Component | Value | Ref Range | Performed | Pathologist | | | | | At | Signature | + + + + + + | TSH | 0.560Comment: Testing | 0.450 - 5.100 | [facility] | | | | performed at [facility], [address] | uIU/mL | LABORATORY | | | | [facility], | | | | | | [place] [address] | | | | + + + + + + + + | Specimen | + + | Blood | + + + + + + + | Performing | Address | City/State/Zipcode | Phone Number | | Organization | | | | + + + + + | [facility] | [address] | [place] [address] | [phone] | + + + + + Phosphorus (06/26/2019 4:03 AM PDT) + + + + + + | Component | Value | Ref Range | Performed | Pathologist | | | | | At | Signature | + + + + + + | Phosphorus | 2.7Comment: Testing | 2.3 - 4.8 mg/dL | [facility] | | | | performed at [facility], [address] | | LABORATORY | | | | [address], | | | | | | [place] [address] | | | | + + + + + + + + | Specimen | + + | Blood | + + + + + + + | Performing | Address | City/State/Zipcode | Phone Number | | Organization | | | | + + + + + | [facility] | [address] | [place] [address] | [phone] | + + + + + Magnesium (06/26/2019 4:03 AM PDT) + + + + + + | Component | Value | Ref Range | Performed | Pathologist | | | | | At | Signature | + + + + + + | Magnesium | 1.7Comment: Testing | 1.7 - 2.4 mg/dL | [facility] | | | | performed at [facility], [address] | | LABORATORY | | | | [facility], | | | | | | [place] [address] | | | | + + + + + + + + | Specimen | + + | Blood | + + + + + + + | Performing | Address | City/State/Zipcode | Phone Number | | Organization | | | | + + + + + | [facility] | [address] | [place] [address] | [phone] | + + + + + CBC [...] | | | Absolute | performed at [facility], [address] | K/uL | LABORATORY | | | | [address], | | | | | | [place] [address] | | | | + + + + + + + + | Specimen | + + | Blood | + + + + + + + | Performing | Address | City/State/Zipcode | Phone Number | | Organization | | | | + + + + + | [facility] | [address] | [place] [address] | [phone] | + + + + + Basic [...] | >60Comment: GFR <60: | >60 | [facility] | | | GFR | [...] | | | | | | MDRD IDMO traceable | | | | | | equation.Testing | | | | | | performed at [facility], [address] | | | | | | [facility], | | | | | | [place] [address] | | | | + + + + + + + + | Specimen | + + | Blood | + + + + + + + | Performing | Address | City/State/Zipcode | Phone Number | | Organization | | | | + + + + + | [facility] | [address] | [place] [address] | [phone] | + + + + + Cortisol, AM (06/26/2019 4:03 AM PDT) + + + + + + | Component | Value | Ref Range | Performed | Pathologist | | | | | At | Signature | + + + + + + | Cortisol AM | 19.9Comment: Testing | 4.3 - 22.4 | [facility] | | | | performed at [facility], [address] | ug/dL | LABORATORY | | | | [address], | | | | | | [place] [address] | | | | + + + + + + + + | Specimen | + + | Blood | + + + + + + + | Performing | Address | City/State/Zipcode | Phone Number | | Organization | | | | + + + + + | [facility] | [address] | [place] [address] | [phone] | + + + + + POC Glucose (06/25/2019 8:57 PM PDT) + + + + + + | Component | Value | Ref Range | Performed | Pathologist | | | | | At | Signature | + + + + + + | Glucose, | 72Comment: Testing | 65 - 99 mg/dL | [facility] | | | POC | performed at [facility];[address] | | LABORATORY | | | | [address];[place] | | | | | | [address] | | | | + + + + + + + + | Specimen | + + | | + + + + + + + | Performing | Address | City/State/Zipcode | Phone Number | | Organization | | | | + + + + + | [facility] | [address] | [place] [address] | [phone] | + + + + + POC Glucose (06/25/2019 6:18 PM PDT) + + + + + + | Component | Value | Ref Range | Performed | Pathologist | | | | | At | Signature | + + + + + + | Glucose, | 82Comment: Testing | 65 - 99 mg/dL | [facility] | | | POC | performed at [facility];[address] | | LABORATORY | | | | [address];[place], [place] | | | | | | [address] | | | | + + + + + + + + | Specimen | + + | | + + + + + + + | Performing | Address | City/State/Zipcode | Phone Number | | Organization | | | | + + + + + | [facility] | [address] | [place] [address] | [phone] | + + + + + CT [...] Testing | 65 - 99 mg/dL | [facility] | | | POC | performed at [facility];[address] | | LABORATORY | | | | [address];[place] | | | | | | [address] | | | | + + + + + + + + | Specimen | + + | | + + + + + + + | Performing | Address | City/State/Zipcode | Phone Number | | Organization | | | | + + + + + | [facility] | [address] | [place] [address] | [phone] | + + + + + Potassium (06/25/2019 11:26 AM PDT) + + + + + + | Component | Value | Ref Range | Performed | Pathologist | | | | | At | Signature | + + + + + + | K | 4.1Comment: Testing | 3.5 - 4.9 | [facility] | | | | performed at [facility];[address] | mmol/L | LABORATORY | | | | [address];[place], [place] | | | | | | [address] | | | | + + + + + + + + | Specimen | + + | Blood | + + + + + + + | Performing | Address | City/State/Zipcode | Phone Number | | Organization | | | | + + + + + | [facility] | [address] | [place] [address] | [phone] | + + + + + ECHO [...] | | | POC | performed at [facility];[address] | | LABORATORY | | | | [address];[place] | | | | | | [address] | | | | + + + + + + + + | Specimen | + + | | + + + + + + + | Performing | Address | City/State/Zipcode | Phone Number | | Organization | | | | + + + + + | [facility] | [address] | [place] [address] | [phone] | + + + + + Phosphorus (06/25/2019 3:10 AM PDT) + + + + + + | Component | Value | Ref Range | Performed | Pathologist | | | | | At | Signature | + + + + + + | Phosphorus | 2.5Comment: Testing | 2.3 - 4.8 mg/dL | [facility] | | | | performed at [facility];[address] | | LABORATORY | | | | [address];[place] | | | | | | [address] | | | | + + + + + + + + | Specimen | + + | Blood | + + + + + + + | Performing | Address | City/State/Zipcode | Phone Number | | Organization | | | | + + + + + | [facility] | [address] | [place] [address] | [phone] | + + + + + Magnesium (06/25/2019 3:10 AM PDT) + + + + + + | Component | Value | Ref Range | Performed | Pathologist | | | | | At | Signature | + + + + + + | Magnesium | 2.1Comment: Testing | 1.7 - 2.4 mg/dL | [facility] | | | | performed at [facility];[address] | | LABORATORY | | | | [address];[place] | | | | | | [address] | | | | + + + + + + + + | Specimen | + + | Blood | + + + + + + + | Performing | Address | City/State/Zipcode | Phone Number | | Organization | | | | + + + + + | [facility] | [address] | [place] [address] | [phone] | + + + + + CBC [...] | | | Absolute | performed at [facility];[address] | K/uL | LABORATORY | | | | [address];[place], [place] | | | | | | [address] | | | | + + + + + + + + | Specimen | + + | Blood | + + + + + + + | Performing | Address | City/State/Zipcode | Phone Number | | Organization | | | | + + + + + | [facility] | [address] | [place] [address] | [phone] | + + + + + Basic [...] | >60Comment: GFR <60: | >60 | [facility] | | | GFR | [...] | | | | | | MDRD IDMO traceable | | | | | | equation.Testing | | | | | | performed at [facility];[address] | | | | | | [facility];[place], [place] | | | | | | [address] | | | | + + + + + + + + | Specimen | + + | Blood | + + + + + + + | Performing | Address | City/State/Zipcode | Phone Number | | Organization | | | | + + + + + | [facility] | [address] [facility] | [place] [address] | [phone] | + + + + + Potassium (06/24/2019 8:19 PM PDT) + + + + + + | Component | Value | Ref Range | Performed | Pathologist | | | | | At | Signature | + + + + + + | K | 3.6Comment: Testing | 3.5 - 4.9 | [facility] | | | | performed at [facility];[address] | mmol/L | LABORATORY | | | | [address];[place] | | | | | | [address] | | | | + + + + + + + + | Specimen | + + | Blood | + + + + + + + | Performing | Address | City/State/Zipcode | Phone Number | | Organization | | | | + + + + + | [facility] | [address] | [place] [address] | [phone] | + + + + + Phosphorus (06/24/2019 8:19 PM PDT) + + + + + + | Component | Value | Ref Range | Performed | Pathologist | | | | | At | Signature | + + + + + + | Phosphorus | 2.5Comment: Testing | 2.3 - 4.8 mg/dL | [facility] | | | | performed at [facility];[address] | | LABORATORY | | | | [address];[place], [place] | | | | | | [address] | | | | + + + + + + + + | Specimen | + + | Blood | + + + + + + + | Performing | Address | City/State/Zipcode | Phone Number | | Organization | | | | + + + + + | [facility] | [address] | [place] [address] | [phone] | + + + + + Magnesium (06/24/2019 8:19 PM PDT) + + + + + + | Component | Value | Ref Range | Performed | Pathologist | | | | | At | Signature | + + + + + + | Magnesium | 1.7Comment: Testing | 1.7 - 2.4 mg/dL | [facility] | | | | performed at [facility];[address] | | LABORATORY | | | | [address];[place] | | | | | | [address] | | | | + + + + + + + + | Specimen | + + | Blood | + + + + + + + | Performing | Address | City/State/Zipcode | Phone Number | | Organization | | | | + + + + + | [facility] | [address] | [place] [address] | [phone] | + + + + + POC Glucose (06/24/2019 8:08 PM PDT) + + + + + + | Component | Value | Ref Range | Performed | Pathologist | | | | | At | Signature | + + + + + + | Glucose, | 86Comment: Testing | 65 - 99 mg/dL | [facility] | | | POC | performed at [facility];[address] | LABORATORY | | [address];[place] | | | | | | [address] | | | | + + + + + + + + | Specimen | + + | | + + + + + + + | Performing | Address | City/State/Zipcode | Phone Number | | Organization | | | | + + + + + | [facility] | [address] | [place] [address] | [phone] | + + + + + POC Glucose (06/24/2019 6:13 PM PDT) + + + + + + | Component | Value | Ref Range | Performed | Pathologist | | | | | At | Signature | + + + + + + | Glucose, | 103 (H)Comment: Testing | 65 - 99 mg/dL | [facility] | | | POC | performed at [facility];[address] | | LABORATORY | | | | [address];[place], [place] | | | | | | [address] | | | | + + + + + + + + | Specimen | + + | | + + + + + + + | Performing | Address | City/State/Zipcode | Phone Number | | Organization | | | | + + + + + | [facility] | [address] | [place] [address] | [phone] | + + + + + EEG-Continuous [...] | | | norepinephrine 3 mcg/min (06/24/19 3914) | | | phenylephrine Stopped (06/23/19 7442) | | | propofol infusion 35 mcg/kg/min (06/24/19 6484) PRN | | | Meds:.acetaminophen, albuterol-ipratropium, Hypoglycemia [...] continuous 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 Diffuse beta | | | activity [...] | | propofol infusion 35 mcg/kg/min (06/24/19 8332) PRN | | | Meds:.acetaminophen, albuterol-ipratropium, Hypoglycemia [...] continuous EEG | | | representing a ilrc-qb-dgcarukh encephalopathy. Diffuse beta | | | activity [...] indicated. Bryan Celis MD | | | [facility] | | + + [...] 1314) | | | phenylephrine Stopped (06/23/19 9515) | | | propofol infusion 35 mcg/kg/min (06/24/19 5912) PRN | | | Meds:.acetaminophen, albuterol-ipratropium, Hypoglycemia [...] continuous EEG | | | representing a uiwh-hi-rexkucmb encephalopathy. Diffuse beta | | | activity [...] indicated. Bryan Celis MD | | | [facility] Clinical Neurophysiologist | | + + + POC Glucose (06/24/2019 1:21 PM PDT) + + + + + + | Component | Value | Ref Range | Performed | Pathologist | | | | | At | Signature | + + + + + + | Glucose, | 159 (H)Comment: Testing | 65 - 99 mg/dL | [facility] | | | POC | performed at [facility];[address] | | LABORATORY | | | | [address];[place], [place] | | | | | | [address] | | | | + + + + + + + + | Specimen | + + | | + + + + + + + | Performing | Address | City/State/Zipcode | Phone Number | | Organization | | | | + + + + + | [facility] | [address] [facility] | [place] [address] | [phone] | + + + + + POC [...] | | | POC | performed at [facility];[address] | | LABORATORY | | | | [address];[place], [place] | | | | | | [address] | | | | + + + + + + + + | Specimen | + + | | + + + + + + + | Performing | Address | City/State/Zipcode | Phone Number | | Organization | | | | + + + + + | [facility] | [address] | [place] [address] | [phone] | + + + + + Phenytoin Level, Total and Free (06/24/2019 9:28 AM PDT) + + + + + + | Component | Value | Ref Range | Performed | Pathologist | | | | | At | Signature | + + + + + + | PHENYTOIN | 15.1Comment: | 10.0 - 20.0 | [facility] | | | TOTAL | [...] 1.6Comment: | 1.0 - 2.0 ug/mL | [facility] | | | FREE | | | LABORATORY | | | | Detection | | | | | | Limit = 0.5Testing | | | | | | performed at [facility], | | | | | | [address], [address], | | | | | | [facility] [address] | | | | + + + + + + + + | Specimen | + + | Blood | + + + + + + + | Performing | Address | City/State/Zipcode | Phone Number | | Organization | | | | + + + + + | [facility] | [address] | [place] [address] | [phone] | + + + + + Phosphorus (06/24/2019 5:04 AM PDT) + + + + + + | Component | Value | Ref Range | Performed | Pathologist | | | | | At | Signature | + + + + + + | Phosphorus | 1.8 (L)Comment: Testing | 2.3 - 4.8 mg/dL | [facility] | | | | performed at [facility];[address] | | LABORATORY | | | | [address];[place], [place] | | | | | | [address] | | | | + + + + + + + + | Specimen | + + | Blood | + + + + + + + | Performing | Address | City/State/Zipcode | Phone Number | | Organization | | | | + + + + + | [facility] | [address] | [place] [address] | [phone] | + + + + + Magnesium (06/24/2019 5:04 AM PDT) + + + + + + | Component | Value | Ref Range | Performed | Pathologist | | | | | At | Signature | + + + + + + | Magnesium | 1.9Comment: Testing | 1.7 - 2.4 mg/dL | [facility] | | | | performed at [facility];[address] | | LABORATORY | | | | [address];[place] | | | | | | [address] | | | | + + + + + + + + | Specimen | + + | Blood | + + + + + + + | Performing | Address | City/State/Zipcode | Phone Number | | Organization | | | | + + + + + | [facility] | [address] | [place] [address] | [phone] | + + + + + CBC [...] | | | Absolute | performed at [facility];[address] | K/uL | LABORATORY | | | | [address];[place] | | | | | | [address] | | | | + + + + + + + + | Specimen | + + | Blood | + + + + + + + | Performing | Address | City/State/Zipcode | Phone Number | | Organization | | | | + + + + + | [facility] | [address] | [place] [address] | [phone] | + + + + + Basic [...] | | | | | performed at [facility];[address] | | | | | | [facility];[place], [place] | | | | | | [address] | | | | + + + + + + + + | Specimen | + + | Blood | + + + + + + + | Performing | Address | City/State/Zipcode | Phone Number | | Organization | | | | + + + + + | [facility] | [address] | [place] [address] | [phone] | + + + + + Phenytoin [...] [facility] | | | | performed at [facility];8 | | LABORATORY | | | | [address];[place], [place] | | | | | | [address] | | | | + + + + + + + + | Specimen | + + | Blood | + + + + + + + | Performing | Address | City/State/Zipcode | Phone Number | | Organization | | | | + + + + + | [facility] | [address] | [place] [address] | [phone] | + + + + + POC Glucose (06/23/2019 10:04 PM PDT) + + + + + + | Component | Value | Ref Range | Performed | Pathologist | | | | | At | Signature | + + + + + + | Glucose, | 175 (H)Comment: Testing | 65 - 99 mg/dL | [facility] | | | POC | performed at [facility];[address] | | LABORATORY | | | | [address];[place] | | | | | | [address] | | | | + + + + + + + + | Specimen | + + | | + + + + + + + | Performing | Address | City/State/Zipcode | Phone Number | | Organization | | | | + + + + + | [facility] | [address] | [place] [address] | [phone] | + + + + + Potassium (06/23/2019 6:39 PM PDT) + + + + + + | Component | Value | Ref Range | Performed | Pathologist | | | | | At | Signature | + + + + + + | K | 4.4Comment: Testing | 3.5 - 4.9 | [facility] | | | | performed at [facility];[address] | mmol/L | LABORATORY | | | | [address];[place], [place] | | | | | | [address] | | | | + + + + + + + + | Specimen | + + | Blood | + + + + + + + | Performing | Address | City/State/Zipcode | Phone Number | | Organization | | | | + + + + + | [facility] | [address] | [place] [address] | [phone] | + + + + + Magnesium (06/23/2019 6:39 PM PDT) + + + + + + | Component | Value | Ref Range | Performed | Pathologist | | | | | At | Signature | + + + + + + | Magnesium | 2.2Comment: Testing | 1.7 - 2.4 mg/dL | [facility] | | | | performed at [facility];[address] | | LABORATORY | | | | [address];[place], [place] | | | | | | [address] | | | | + + + + + + + + | Specimen | + + | Blood | + + + + + + + | Performing | Address | City/State/Zipcode | Phone Number | | Organization | | | | + + + + + | [facility] | [address] | [place] [address] | [phone] | + + + + + XR [...] mediastinum | | | below the acquired daxis-mi-dyan into the upper abdomen. Overlying | | [...] tube tip is 3.9 cm above the sócar. | | Nasogastric tube is seen coursing through the mediastinum below the | | acquired xxqck-cy-cfvg into the upper abdomen. Overlying EKG leads [...] Testing | 65 - 99 mg/dL | [facility] | | | POC | performed at [facility];[address] | | LABORATORY | | | | [address];[place], [place] | | | | | | [address] | | | | + + + + + + + + | Specimen | + + | | + + + + + + + | Performing | Address | City/State/Zipcode | Phone Number | | Organization | | | | + + + + + | [facility] | [address] | [place] [address] | [phone] | + + + + + Lactic Acid (06/23/2019 1:20 PM PDT) + + + + + + | Component | Value | Ref Range | Performed | Pathologist | | | | | At | Signature | + + + + + + | Lactate, | 1.4Comment: Testing | 0.4 - 2.0 | [facility] | | | Serum | performed at [facility];[address] | mmol/L | LABORATORY | | | | [address];[place] | | | | | | [address] | | | | + + + + + + + + | Specimen | + + | Blood | + + + + + + + | Performing | Address | City/State/Zipcode | Phone Number | | Organization | | | | + + + + + | [facility] | [address] | [place] [address] | [phone] | + + + + + Hepatic [...] [facility] | | | | performed at [facility];[address] | | LABORATORY | | | | [address];[place] | | | | | | [address] | | | | + + + + + + + + | Specimen | + + | Blood | + + + + + + + | Performing | Address | City/State/Zipcode | Phone Number | | Organization | | | | + + + + + | [facility] | [address] | [place] [address] | [phone] | + + + + + Procalcitonin [...] | | | | | | at [facility];[address] [place] [address] | | | | | | [facility];[place] [address] | | | | + + + + + + + + | Specimen | + + | Blood | + + + + + + + | Performing | Address | City/State/Zipcode | Phone Number | | Organization | | | | + + + + + | [facility] | [address] | [place] [address] | [phone] | + + + + + POC [...] | | | POC | performed at [facility];[address] | | LABORATORY | | | | [address];[place] | | | | | | [address] | | | | + + + + + + + + | Specimen | + + | | + + + + + + + | Performing | Address | City/State/Zipcode | Phone Number | | Organization | | | | + + + + + | [facility] | [address] | [place] [address] | [phone] | + + + + + POC [...] | | | POC | performed at [facility];[address] | | LABORATORY | | | | [address];[place], [place] | | | | | | [address] | | | | + + + + + + + + | Specimen | + + | | + + + + + + + | Performing | Address | City/State/Zipcode | Phone Number | | Organization | | | | + + + + + | [facility] | [address] | [place] [address] | [phone] | + + + + + Blood [...] | | | | | performed at [facility];[address] | | | | | | [address];[place], [place] | | | | | | [address] | | | | + + + + + + + + | Specimen | + + | | + + + + + + + | Performing | Address | City/State/Zipcode | Phone Number | | Organization | | | | + + + + + | [facility] | [address] | [place] [address] | [phone] | + + + + + Phosphorus (06/23/2019 4:08 AM PDT) + + + + + + | Component | Value | Ref Range | Performed | Pathologist | | | | | At | Signature | + + + + + + | Phosphorus | 4.4Comment: Testing | 2.3 - 4.8 mg/dL | [facility] | | | | performed at [facility];[address] | | LABORATORY | | | | [address];[place] | | | | | | [address] | | | | + + + + + + + + | Specimen | + + | Blood | + + + + + + + | Performing | Address | City/State/Zipcode | Phone Number | | Organization | | | | + + + + + | [facility] | [address] | [place] [address] | [phone] | + + + + + Magnesium (06/23/2019 4:08 AM PDT) + + + + + + | Component | Value | Ref Range | Performed | Pathologist | | | | | At | Signature | + + + + + + | Magnesium | 1.6 (L)Comment: Testing | 1.7 - 2.4 mg/dL | [facility] | | | | performed at [facility];[address] | | LABORATORY | | | | [address];[place] | | | | | | [address] | | | | + + + + + + + + | Specimen | + + | Blood | + + + + + + + | Performing | Address | City/State/Zipcode | Phone Number | | Organization | | | | + + + + + | [facility] | [address] | [place] [address] | [phone] | + + + + + CBC [...] | | | | | performed at [facility];[address] | | | | | | [address];[place] | | | | | | [address] | | | | + + + + + + + + | Specimen | + + | Blood | + + + + + + + | Performing | Address | City/State/Zipcode | Phone Number | | Organization | | | | + + + + + | [facility] | [address] | [place] [address] | [phone] | + + + + + Basic [...] | >60Comment: GFR <60: | >60 | [facility] | | | GFR | [...] | | | | | performed at [facility];[address] | | | | | | [facility];[place], [place] | | | | | | [address] | | | | + + + + + + + + | Specimen | + + | Blood | + + + + + + + | Performing | Address | City/State/Zipcode | Phone Number | | Organization | | | | + + + + + | [facility] | [address] [place] [address] | [place] [address] | [phone] | + + + + + EEG (06/23/2019 3:43 AM PDT) + + + | Narrative | Performed At | + + + | Jeana Goldstein, Neurodiagnostic Tech 06/23/2019 3:44 | | | [facility] Neurodiagnostic [facility] [address] [facility] | | | [place] [address] Patient: Steffi Bishop ID: [id number] : | | | 1965 Age: 53 Gender: female Room #: [id number] Physician: | | | [facility] Supervisor: Jeana Goldstein Ref. Physician: Cary | | | [place] DO Recording Date: 06/23/2019 Duration: 00:31:48 | | | Report Date: 06/23/2019 2:20 AM Medications: Ativan, | | | Keppra 2000mg loaded in ER at [facility], fentanyl, no sedation | | | History: [...] | | | immediately notified to the button sewer provider, Dr. Holland. | | | | [...] | | | Serum | performed at [facility];[address] | mmol/L | LABORATORY | | | | [address];[place], [place] | | | | | | [address] | | | | + + + + + + + + | Specimen | + + | Blood | + + + + + + + | Performing | Address | City/State/Zipcode | Phone Number | | Organization | | | | + + + + + | [facility] | [address] | [place] [address] | [phone] | + + + + + XR [...] RESULT | Testing performed at | | [facility] | | | | [facility], [address] | | LABORATORY | | | | [address], [place], [place] | | | | | | [address]Lnupmbd: Testing | | | | | | performed at [facility], [address] | | | | | | [facility], | | | | | | [place] [address] | | | | + + + + + + + + | Specimen | + + | Body Fluid - Sputum | | specimen obtained by | | aspiration | | (specimen) | + + + + + + + | Performing | Address | City/State/Zipcode | Phone Number | | Organization | | | | + + + + + | [facility] | [address] | [place] [address] | [phone] | + + + + + POC [...] | | | POC | performed at [facility];[address] | | LABORATORY | | | | [address];[place] | | | | | | [address] | | | | + + + + + + + + | Specimen | + + | | + + + + + + + | Performing | Address | City/State/Zipcode | Phone Number | | Organization | | | | + + + + + | [facility] | [address] | [place] [address] | [phone] | + + + + + MRSA [...] | | | | | performed at [facility];[address] | | | | | | [address];[place], [place] | | | | | | [address] | | | | + + + + + + + + | Specimen | + + | Tissue - Both | | anterior nares (body | | structure) | + + + + + + + | Performing | Address | City/State/Zipcode | Phone Number | | Organization | | | | + + + + + | [facility] | [address] | [place] [address] | [phone] | + + + + + documented [...] Shortness of Breath, | | | Starting [facility] 06/22/19 at 2326 | | + +---+ [...] | | TIMES DAILY, First dose on Fri | | AM PDT | | | [...] | | | | | | | informationVy Grider prior to use., | | | | [...] | | | | AC, NPO, Daytime 7703-0474 Use | | | | | | | NIGHT DOSE for doses scheduled: | | | | | | | HS, 3AM, Nighttime 6689-5672 | | | | | | | [...] LORazepam (ATIVAN) injection 2 | Given | 20 | 2 mg | | | | mg 2 mg, Intravenous, ONCE, Fri | | 19 3:02 | | | | | 06/23/19 at 0215, For 1 dose | | AM PDT | | | | + +-------+ +------+---+---+ +---+---+ | | | +---+---+ + +-------+ +------+---+---+ | LORazepam (ATIVAN) injection 2 | Given | 20 | 2 mg | | | | [...] PDT | | | | | Starting [facility] 06/22/19 at 2346, | | | [...] | | | | | protocol, Starting [facility] 06/22/19 | | | | | | [...] or | | | SBP <90., Starting 10/20/19 | | | at 2216, For 1 [...] AM PDT | | | | | [facility] 06/23/19 at 0400 | | | | [...]
--- OUTSIDE RECORDS SUMMARY | ~2020-04-25 | XMS | Encounter Summary ---
Demographics + + + | Address | [address] [place] [address] | | | [place] [address] | + + + | Home Phone [...] Author + + + | Author | [facility] | | | and [place] | + + + | Organization | [facility] | | | [...] Team Providers + +------+ + | Care Edi Architect Name | Role | Phone | [...] + + | 12/21/ | Hospital | [facility] | GonzalobraulioGabe mann | Status epilepticus | | 2019 - | Encounter | [facility] | MD Evelio Jeff | ([facility]) | | | | CARE FLOOR [address] [place], [place] | | | 12/[address]/ | | [address] | [address] | | | 2019 | | [place], [place] | | | | | | [address] | Erika Myers | | | | | [phone] | MD Evelio Dodson | | | | | | [address] | | | | | | [place] [address] | | | | | | [phone] | | | | | | | | | | | | Jerome Quintanilla MD | | | | | | [address] | | | | | | [place] [address] | | | | | | [phone] | | | | | | | | | | | | Moreno Juares MD | | | | | | [address] | | | | | | [place] [address] | | | | | | [phone] | | | | | | | [...] might be diffe rent from the original. [facility] Service: Hospitalist Discharge Summary Date of [...] Lab 12/22/19 2212 PHART 7.382 PO2ART 88 [id number] 39 [id number] 97 Lab Results Component Value Date CREA [...] Dr. Middleton, (neurologist). Follow up: RAFFI Ji [id number] [facility] [place] [address] Schedule an appointment as soon as possible for a visit in 1 week For a recheck. Check keppra level in 1 week before the morning dose. Anastasia Argueta MD [facility] T[place]SHAWN MATA, [facility] [phone] Schedule an appointment as soon as possible [...] documentation of disc harge summary. Dictation and line analyst or software, Grouper, used which may contain error for similar [...] this note might be different from the [facility] Service: Hospitalist Progress Note Hospital Day: [...] for input(s): IRON, TIBC, PCTSAT, FERRITIN, TSH, [id number], FOLATE in the last 168 hours. Recent [...] Value Units Date/Time Culture, Respiratory, Lower, Smear [[id number]] Collected: 12/22/19 1755 Order Status: Completed Lab [...] CULTURE IN PROGRESS RESULT Testing performed at [facility], [address] [place] [address] Comment: Testing performed at [facility], [address] [place] [address] 10498 MRSA NAAT [[id number]] Collected: 12/22/19 1708 Order Status: Completed Lab Status: Final result Updated: 12/22/19 184 Specimen: Tissue from Nares SOURCE: NARES(NOSE) Result NEGATIVE Comment: Testing performed at [facility];[address] [place] [address];[place] [address] Xr Chest Ap Portable Result Date: 12/22/2019 [...] PT OT consulted. Patient's daughter Catarina phone #[phone] updated. Anticipate discharge in 24 to 48 hours Plan discussed with patient. All questions were answered . All data was reviewed. Disposition: Inpatient Code Status: Full Code Erika Myers MD 12/24/2019 7:32 AM This entry has been created using 2theloo Speech Recognition software and Endosee. The entry has been reviewed and there may still exist sound alike word errors. Ashok Lux ARNP - 12/23/2019 4:38 AM PDTFormatting of this note might be different from the [facility] Service: Package Line Relief Operator Progress Note Steffi Bishop 54 y.o. Hospital Day: LOS: 1 day Post-Op Day: * No surgery found * Consulting Physicians SUBJECTIVE Patient Summary: From Dr Bautista H&P(12/22/2019): "The patient is a 54 y.o. female with significant past medical history of known seizures, depression, alcohol abuse, PTSD, he p C infection, drug abuse, who was found to be seizing. The patient lives on the [facility] [place] and was found by her friend seizing who then called EMS and the family underscore that the patient was found to have another seizure not protecting the airway status continued at [facility] point decision was made to [...] this time." ICU Timeline: 12/21: Transfer from [facility] ER intubated on MV. EEG negative [...] of all other procedures. Ashok G. Joao, CURTAIN CLEANER 12/23/2019 Dictation software, Grouper, was used which may contain error with [...] Bautista MD - 12/22/2019 5:59 PM PDT [facility] Service: Package Line Relief Operator Admission History & Physical Steffi Bishop 54 [...] pins and plate cellulitis unknown left eye [place] CHOLECYSTECTOMY HYSTERECTOMY ALLERGIES Allergies Allergen Reactions Aspirin [...] file Gets together: Not on file Attends buddhist service: Not on file Active member of [...] not appear that patient had any ac tribal alcoholic hepatitis. Coags also appear to be [...] 12/22/2019 8:57 PM PDTAssociated Order(s): E EG [facility] Neurodiagnostic Dept [address] [place] [address] Patient: Steffi Bishop ID: [id number] : 1965 Age: 54 Gender: female Room #: 69483 Physician: Pérez Paul Clinical Data Assistant: Juan J Soriano Ref. Physician: Gabe Bautista [...] pins and plate cellulitis unknown left eye [place] CHOLECYSTECTOMY HYSTERECTOMY Allergy: Allergies Allergen Reactions Aspirin [...] by mouth every morning (before breakfast). Anastasia Arugeta MD ondansetron (ZOFRAN ODT) 8 mg disintegrating [...] file Gets together: Not on file Attends buddhist service: Not on file Active member of [...] RODS Gram Stain Result Testing performed at [facility], [address] [place] [address] RESULT PENDING Comprehensive Metabolic Panel Collection Time: [...] manages own medication a nd assists with handkerchief cutter. Likes to cook. Precautions Precautions/Limitations: seizures, falls [...] Assess/Train, Comment: oral hygiene Grooming, Level of Becker: set up required Assistive Device: none Grooming Assess/Train, Position: sitting Grooming Impairments: impaired balance Lower Body Dressing Assessment/Training LB Dressing Assess/Train, Comment: socks LB Dressing, Level of Becker: supervised, verbal cues required Assistive Device: none LB Dressing Assess/Train, Position: sitting LB Dressing Impairments: impaired balance, ROM decreased, strength decreased Toileting Assessment/Training Toileting Assess/Train, Comment: Pt had a BM at toilet Toileting, Level of Becker: supervised Assistive Device: grab bar Toileting Assess/Train, Position: sitting, standing Toileting Impairments: impaired functional endurance/activity tolerance, impaired balance Bed Mobility Additional Documentation: supine to/from sit Sit to Supine, Level of Becker: independent Transfers Additional Documentation: sit to/from stand, toilet Sit-Stand, Level of Becker: supervised Stand-Sit, Level of Becker: supervised Qth-Ucryk-Inp, Assistive Device: none Toilet, Level of Becker: stand by assist Toilet, Assistive Device: none Impairments: impaired balance, strength decreased ROM Testing Results: no range of motion deficits identified Goals Reflects last filed data and may be from multiple contributors. Grooming Goal Most Recent Value LTG Status new at 12/25/2019 0856 LTG Becker Level modified independent at 12/25/2019 0856 LTG Position standing at 12/25/2019 0856 LTG Adaptive Equipment none at 12/25/2019 0856 Ther Exercise Goal Most Recent Value LTG Status new at 12/25/2019 0856 LTG Pt will complete UE therband program with Level 2 theraband for 3 sets of 10 reps with verbal and visual cues. at 12/25/2019 0856 lan of Care - M Isaac Seals, TRAUMA COORDINATOR - 12/25/2019 8:29 AM PDTFormatting of this [...] bouts of gait with increased distance requiring OPHTHALMIC ASSISTANT f or stability during the first bout however the second bout demonstrated improved stability a nd required no OPHTHALMIC ASSISTANT. Pt was able to perform balance [...] Bed Mobility Supine to Sit, Level of Becker: independent Transfers Sit-Stand, Level of Becker: supervised Stand-Sit, Level of Becker: supervised Xnw-Kthev-Rnm, Assistive Device: none Impairments: impaired balance Gait Level of Becker: minimal assist (75% patient effort), contact guard assist Assistive Device: none(OPHTHALMIC ASSISTANT) Distance (feet): 2x150 Additional Documentation: stairs (group) Gait Deviations: limb motion velocity decreased, step length decreased Safety Issues: balance decreased during turns, step length decreased Stairs Number of Stairs: 5 Handrail Location: none Level of Becker: minimal assist (75% patient effort) Assistive Device: none Technique Used: step to step (ascending), step to step (descending) Safety Issues: balance decreased during turns, loses balance backward Impairments: impaired balance Balance Retro Walkinx10 Sidesteppinx10 Goals Reflects last filed data and may be from multiple contributors. All Transfers Goal Most Recent Value LTG Status new at 12/23/2019 1157 LTG Becker Level independent at 12/23/2019 1157 LTG Assistive Device none at 12/23/2019 1157 Gait Goal Most Recent Value LTG Status new at 12/23/2019 1157 LTG Becker Level independent at 12/23/2019 1157 LTG Assistive Device none at 12/23/2019 1157 LTG Distance (feet) 300 at 12/23/2019 1157 Stair Goal Most Recent Value LTG Status new at 12/23/2019 1157 LTG Becker Level modified independent at 12/23/2019 1157 LTG [...] She states she ate half of her Kazakh dip sand wich and some of her [...] Intervention: Prevent Seizure-Related Injury Flowsheets (Taken 12/23/2019 7887) Seizure Precautions: activity supervised; clutter-free environment maintained; [...] Medical Equipment Provider: Pharmacy/Medication Needs: other (see comments)([facility] ) Transportation Needs: car Initial Plan Anticipated Discharge Disposition: home with assist Expected DC Date: Steps Taken Toward Discharge: Next Steps: Notes: Met with patient at bedside to discuss discharge plan and needs. Introduced myself a nd explained my role in discharge planning. Pt is still drowsy from seizures. [place] du[place]. Pt has a history [...] Device: none Supine to Sit, Level of Becker: independent Sit to Supine, Level of Becker: independent Transfers Additional Documentation: sit to/from stand Stand-Sit, Level of Becker: contact guard assist Zgj-Fyffi-Hek, Assistive Device: none Impairments: impaired balance Gait Gait Comments: several LOB w/correction, pt aware of instability & need for assist Level of Becker: minimal assist (75% patient effort) Assistive Device: [...] LTG Status new at 12/23/2019 1157 LTG Becker Level independent at 12/23/2019 1157 LTG Assistive Device none at 12/23/2019 1157 Gait Goal Most Recent Value LTG Status new at 12/23/2019 1157 LTG Becker Level independent at 12/23/2019 1157 LTG Assistive Device none at 12/23/2019 1157 LTG Distance (feet) 300 at 12/23/2019 1157 Stair Goal Most Recent Value LTG Status new at 12/23/2019 1157 LTG Becker Level modified independent at 12/23/2019 1157 LTG Assistive Device 1 rail at 12/23/2019 1157 LTG Number of Stairs 3 at 12/23/2019 1157 Additional Goal #1 PT Most Recent Value LTG Status new at 12/23/2019 1157 LTG Pt will increase Tinetti score to >=23/28 at 12/23/2019 1157 lan of Care - [facility] Adriana mosqueda RN - 12/23/2019 8:50 AM PDT Problem: Skin Injury Risk Increased Goal: Skin Health and Integrity Outcome: Ongoing, progressing Problem: Seizure, Active Management Goal: Absence of Seizure/Seizure-Related Injury Outcome: Ongoing, progressing lan of Gabe Fung MD - 12/23/2019 8:49 AM PDTPatient stable to be transferred [facility] Signout given to Dr. Myers. Neurology consulted. Gabe Bautista MD 8:49 AM 12/23/19 lan of Sally solano, Erika Dodson MD - 12/23/2019 8:41 AM [id number] female with a history of sei zure disorder, depression, alcohol abuse, PTSD, hepatitis C, drug abuse admitted with [facility]. Patient was intubated and admitted to the [...] Expected: | | | | e | ([facility]) | 01/01/2020, Expires: | | | | [...] | >60Comment: GFR <60: | >60 | [facility] | | | GFR | [...] | | | | | | [facility] traceable | | | | | | equation.Testing | | | | | | performed at [facility], [address] | | | | | | [facility], | | | | | | [place] [address] | | | | + + + + + + + + | Specimen | + + | Blood | + + + + + + + | Performing | Address | City/State/Zipcode | Phone Number | | Organization | | | | + + + + + | [facility] | [address] | [place] [address] | [phone] | + + + + + CBC [...] | | | Absolute | performed at [facility], [address] | K/uL | LABORATORY | | | | [address], | | | | | | [place] [address] | | | | + + + + + + + + | Specimen | + + | Blood | + + + + + + + | Performing | Address | City/State/Zipcode | Phone Number | | Organization | | | | + + + + + | [facility] | [address] | [place] [address] | [phone] | + + + + + Magnesium (12/25/2019 4:26 AM PDT) + + + + + + | Component | Value | Ref Range | Performed | Pathologist | | | | | At | Signature | + + + + + + | Magnesium | 1.8Comment: Testing | 1.7 - 2.4 mg/dL | [facility] | | | | performed at [facility], [address] | | LABORATORY | | | | [address], | | | | | | [place] [address] | | | | + + + + + + + + | Specimen | + + | Blood | + + + + + + + | Performing | Address | City/State/Zipcode | Phone Number | | Organization | | | | + + + + + | [facility] | [address] | [place] [address] | [phone] | + + + + + Magnesium (12/24/2019 5:57 AM PDT) + + + + + + | Component | Value | Ref Range | Performed | Pathologist | | | | | At | Signature | + + + + + + | Magnesium | 2.0Comment: Testing | 1.7 - 2.4 mg/dL | [facility] | | | | performed at [facility], [address] | | LABORATORY | | | | [address], | | | | | | [place] [address] | | | | + + + + + + + + | Specimen | + + | Blood | + + + + + + + | Performing | Address | City/State/Zipcode | Phone Number | | Organization | | | | + + + + + | [facility] | [address] | [place] [address] | [phone] | + + + + + CBC [...] | 9.2Comment: NO NORMAL | fl | [facility] | | | | RANGE ESTABLISHEDTesting | | LABORATORY | | | | performed at [facility], [address] | | | | | [address], | | | | | | [place] [address] | | | | + + + + + + + + | Specimen | + + | Blood | + + + + + + + | Performing | Address | City/State/Zipcode | Phone Number | | Organization | | | | + + + + + | [facility] | [address] | [place] [address] | [phone] | + + + + + Basic [...] | | | | | performed at [facility], [address] | | | | | | [address], | | | | | | [place] [address] | | | | + + + + + + + + | Specimen | + + | Blood | + + + + + + + | Performing | Address | City/State/Zipcode | Phone Number | | Organization | | | | + + + + + | [facility] | [address] | [place] [address] | [phone] | + + + + + Potassium (12/23/2019 6:05 PM PDT) + + + + + + | Component | Value | Ref Range | Performed | Pathologist | | | | | At | Signature | + + + + + + | K | 3.7Comment: Testing | 3.5 - 4.9 | [facility] | | | | performed at [facility];[address] | mmol/L | LABORATORY | | | | [address];[place], [place] | | | | | | [address] | | | | + + + + + + + + | Specimen | + + | Blood | + + + + + + + | Performing | Address | City/State/Zipcode | Phone Number | | Organization | | | | + + + + + | [facility] | [address] | [place] [address] | [phone] | + + + + + Phosphorus (12/23/2019 4:37 AM PDT) + + + + + + | Component | Value | Ref Range | Performed | Pathologist | | | | | At | Signature | + + + + + + | Phosphorus | 2.4Comment: Testing | 2.3 - 4.8 mg/dL | [facility] | | | | performed at [facility];[address] | | LABORATORY | | | | [address];[place] | | | | | | [address] | | | | + + + + + + + + | Specimen | + + | Blood | + + + + + + + | Performing | Address | City/State/Zipcode | Phone Number | | Organization | | | | + + + + + | [facility] | [address] | [place] [address] | [phone] | + + + + + Magnesium (12/23/2019 4:37 AM PDT) + + + + + + | Component | Value | Ref Range | Performed | Pathologist | | | | | At | Signature | + + + + + + | Magnesium | 2.2Comment: Testing | 1.7 - 2.4 mg/dL | [facility] | | | | performed at [facility];[address] | | LABORATORY | | | | [address];[place] | | | | | | [address] | | | | + + + + + + + + | Specimen | + + | Blood | + + + + + + + | Performing | Address | City/State/Zipcode | Phone Number | | Organization | | | | + + + + + | [facility] | [address] | [place] [address] | [phone] | + + + + + CBC [...] | | | | | performed at [facility];[address] | | | | | | [address];[place], [place] | | | | | | [address] | | | | + + + + + + + + | Specimen | + + | Blood | + + + + + + + | Performing | Address | City/State/Zipcode | Phone Number | | Organization | | | | + + + + + | [facility] | [address] | [place] [address] | [phone] | + + + + + Basic [...] | >60Comment: GFR <60: | >60 | [facility] | | | GFR | [...] | | | | | performed at [facility];[address] | | | | | | [facility];[place], [place] | | | | | | [address] | | | | + + + + + + + + | Specimen | + + | Blood | + + + + + + + | Performing | Address | City/State/Zipcode | Phone Number | | Organization | | | | + + + + + | [facility] | [address] | [place] [address] | [phone] | + + + + + Blood [...] | | | Arterial, | performed at [facility];[address] | | LABORATORY | | | POC | [address];[place] | | | | | | [address] | | | | + + + + + + + + | Specimen | + + | | + + + + + + + | Performing | Address | City/State/Zipcode | Phone Number | | Organization | | | | + + + + + | [facility] | [address] | [place] [address] | [phone] | + + + + + POC [...] | | | POC | performed at [facility];[address] | | LABORATORY | | | | [address];[place], [place] | | | | | | [address] | | | | + + + + + + + + | Specimen | + + | | + + + + + + + | Performing | Address | City/State/Zipcode | Phone Number | | Organization | | | | + + + + + | [facility] | [address] | [place] [address] | [phone] | + + + + + EEG (12/22/2019 8:57 PM PDT) + + + | Narrative | Performed At | + + + | Juan J Soriano, Neurodiagnostic Tech 12/22/2019 8:58 PM | | | [facility] Neurodiagnostic Dept [address] [facility] | | | [place] [address] Patient: Steffi Bishop ID: [id number] | | | : 1965 Age: 54 Gender: female Room #: 98660 | | | Physician: Pérez Paul Clinical Data Assistant: Juan J Soriano Ref. | | | [...] be seizing. The patient lives on the [facility] and | | | was found by [...] [facility] | | | | performed at [facility];[address] | | LABORATORY | | | | [address];[place] | | | | | | [address] | | | | + + + + + + + + | Specimen | + + | Blood | + + + + + + + | Performing | Address | City/State/Zipcode | Phone Number | | Organization | | | | + + + + + | [facility] | [address] | [place] [address] | [phone] | + + + + + Lactic Acid (12/22/2019 6:23 PM PDT) + + + + + + | Component | Value | Ref Range | Performed | Pathologist | | | | | At | Signature | + + + + + + | Lactate, | 0.9Comment: Testing | 0.4 - 2.0 | [facility] | | | Serum | performed at [facility];[address] | mmol/L | LABORATORY | | | | [address];[place], [place] | | | | | | [address] | | | | + + + + + + + + | Specimen | + + | Blood | + + + + + + + | Performing | Address | City/State/Zipcode | Phone Number | | Organization | | | | + + + + + | [facility] | [address] | [place] [address] | [phone] | + + + + + XR [...] | | | Absolute | performed at [facility];[address] | K/uL | LABORATORY | | | | [address];[place], [place] | | | | | | [address] | | | | + + + + + + + + | Specimen | + + | Blood | + + + + + + + | Performing | Address | City/State/Zipcode | Phone Number | | Organization | | | | + + + + + | [facility] | [address] | [place] [address] | [phone] | + + + + + Comprehensive [...] 19 | 10 - 65 U/L | [facility] | | | | | | LABORATORY | | + + + + + + | Estimated | >60Comment: GFR <60: | >60 | [facility] | | | GFR | [...] | | | | | performed at [facility] | | | | | | [facility];[place], [place] | | | | | | [address] | | | | + + + + + + + + | Specimen | + + | Blood | + + + + + + + | Performing | Address | City/State/Zipcode | Phone Number | | Organization | | | | + + + + + | [facility] | [address] | [place] [address] | [phone] | + + + + + Culture, [...] RESULT | Testing performed at | | [facility] | | | | [facility], [address] [facility] | | LABORATORY | | | | [place], [place], [place] | | | | | | [id number]: Testing | | | | | | performed at [facility], [address] | | | | | | [facility], | | | | | | [place] [address] | | | | + + + [...] [facility] | [address] | [place] [address] | [phone] | + + + + + MRSA [...] [facility] | | | | performed at [facility];[address] | | LABORATORY | | | | [address];[place] | | | | | | [address] | | | | + + + [...] | [address] | [place] [address] | [phone] | + + + + + POC [...] | | | POC | performed at [facility];[address] | | LABORATORY | | | | [address];[place], [place] | | | | | | [address] | | | | + + + + + + + + | Specimen | + + | | + + + + + + + | Performing | Address | City/State/Zipcode | Phone Number | | Organization | | | | + + + + + | [facility] | [address] | [place] [address] | [phone] | + + + + + documented [...]
--- OUTSIDE RECORDS SUMMARY | ~2020-04-25 | XMS | Encounter Summary ---
Demographics + + + | Address | [address] [place] [address] | | | [place] [address] | + + + | Home Phone [...] Team Providers + +------+ + | Care Broadloom Weaver Name | Role | Phone | + [...] + + | 10/03/ | Telephone | [facility] | Keenan Holland, | Other (Pts ymptoms | | 2020 | | NEUROLOGY [address] | Marketing Research Intern | getting worse) | | | | [place] [address] | | | | | | [place], [place] | | | | | | [address] | | | | | | [phone] | | | +--------+ + + + [...] So she will talk to PCP abo ga assistive device. No side effects to indomethacin, she will continue to take it. She velazquez s more numbness of left cheek/leg compared to last visit with me, so will also see PCP for o bjective tests and any need for imaging. Not acute numbness but slow worsening. SO not con cerning for stroke at this time. Thanks nohemy elephone Encounter - Keenan Holland, Marketing Research Intern - 10/03/2019 12:22 PM PSTPt called back [...]
--- OUTSIDE RECORDS SUMMARY | ~2020-04-25 | XMS | Encounter Summary ---
Demographics + + + | Address | [address] [place] [address] | | | [place] [address] | + + + | Home Phone [...] Team Providers + +------+ + | Care Pipe Coverer And Insulator Name | Role | Phone | + [...] + + | 08/01/ | Telephone | [facility] | Anastasia Argueta, | Referral | | 2019 | | NEUROLOGY 1100 | MD Alexander JAMES | | | | | [address] | [place], [place] | | | | | [place], [place] | [address] | | | | | [address] | [phone] | | | | | [phone] | | | +--------+ + + + [...] and arranging transportation . Call back at: [phone]. If no answer leave detailed voicemail. If this is a symptom based call, was patient offered triage? Not Applicable If this is a symptom based call and you were unable to immediately transfer the call to a theodora flores medical doctor nuclear medicine was caller made aware that if at any time she feels it is an emergency they sh ould call 911 or go to the nearest emergency room? not applicable documented in this encounter Plan of Treatment Not on filedocumented as of this encounter Visit Diagnoses Not on filedocumented in this encounter"
--- OUTSIDE RECORDS SUMMARY | ~2020-04-25 | XMS | Encounter Summary ---
Demographics + + + | Address | [address] [place] [address] | | | [place] [address] | + + + | Home Phone [...] Author + + + | Author | [facility] | | | and [place] | + + + | Organization | [facility] | | [...] Providers + +------+ + | Care Supervisor Self Service Store Name | Role | Phone | + [...] + + | 10/03/ | Telephone | [facility] | Keenan Holland, | Medical Follow Up | | 2019 | | NEUROLOGY 1100 | Optical Glass Wet Inspector | | | | | [address] | | | | | | [place], [place] | | | | | | [address] | | | | | | [phone] | | | +--------+ + + + [...] Miscellaneous Notes Telephone Encounter - Keenan Holland, Optical Glass Wet Inspector - 10/03/2019 12:17 PM PSTTried call ing pt at [phone], she didn't answered. Called [phone] and left message to have he r call us back. documented in this encounter Plan of Treatment Not on filedocumented as of this encounter Visit Diagnoses Not on filedocumented in this encounter"
--- OUTSIDE RECORDS SUMMARY | ~2020-04-25 | XMS | Encounter Summary ---
Demographics + + + | Address | [address] [place] [address] | | | [place] [address] | + + + | Home Phone [...] Providers + +------+ + | Care Supervisor Mechanic Boilermaking Name | Role | Phone | + [...] + + | 01/22/ | Telephone | [facility] | Keenan Holland, | Appointment | | 2019 | | NEUROLOGY 1100 | Stock Control Supervisor | | | | | [address] | | | | | | [place], [place] | | | | | | [address] | | | | | | [phone] | | | +--------+ + + + [...] Miscellaneous Notes Telephone Encounter - Keenan Holland Stock Control Supervisor - 01/23/2020 3:12 PM PDTCalled pt and confirmed schedule follow up on March 20 at 11:30am. documented in this encounter Plan of Treatment Not on filedocumented as of this encounter Visit Diagnoses Not on filedocumented in this encounter"
--- OUTSIDE RECORDS SUMMARY | ~2020-04-25 | XMS | Encounter Summary ---
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 | [address] | [place] | | | | | disorder | CR, | [place], [place] | | | | | ([facility]) | [place] [address] | [address] Phone: | | | | | | Phone: | [phone] | | | | | | [phone] | Fax: | | | | | | Fax: | [phone] | | | | | | [phone] | | + +--------+ + + + + Encounter Details +--------+---------+ + + + | Date | Type | Department | Care Team | Description | +--------+---------+ + + + | 11/09/ | Office | [facility] | Anastasia Argueta, | Chronic migraine | | 2020 | Visit | NEUROLOGY 1100 | MD Alexander JAMES | (Primary Dx); | | | | [address] | [place], [place] | Neuropathy | | | | [place], [place] | [address] | | | | | [address] | [phone] | | | | | [phone] | | | +--------+---------+ + + + [...] history of headaches and provoked seizures in [facility] of drug use here today for [...] 75 mg TID and now endorses bilateral judaism pain rather than left unilateral pain. She [...] Family history and Social history reviewed p [facility]. Physical Exam: There were no vitals [...]
--- OUTSIDE RECORDS SUMMARY | ~2020-04-25 | XMS | Encounter Summary ---
Demographics + + + | Address | [address] [place] [address] | | | [place] [address] | + + + | Home Phone [...] Author + + + | Author | [facility] | | | and [place] | + + + | Organization | [facility] | | | [...] Team Providers + +------+ + | Care Cmm Technician Name | Role | Phone | + +------+ + | Anat Pickett | PCP | | + +------+ + Reason for Visit +--------+--------+ + | Reason | Onset | Comments | | | Date | | +--------+--------+ + | Other | 12/03/ | speak with medical accounting clerk | | | 2020 | | +--------+--------+ + Encounter Details +--------+ + + + + | Date | Type | Department | Care Team | Description | +--------+ + + + + | 12/03/ | Telephone | [facility] | Anastasia Argueta, | Other (speak with | | 2020 | | NEUROLOGY 1100 | MD Alexander JAMES | medical accounting clerk ) | | | | [address] | [place], [place] | | | | | [place], [place] | [address] | | | | | [address] | [phone] | | | | | [phone] | | | +--------+ + + + [...] is calling regarding Other (speak with medical accounting clerk ) and would like a call back. Additional Call Details: Patient stated she had 4 seizures last night 12.03.19. Call sherice andrew back to discuss further details at [phone]. If this is a symptom based call, was patient offered triage? Not Applicable If this is a symptom based call and you were unable to immediately transfer the call to a theodora flores territory development manager was caller made aware that if at any time she feels it is an emergency they sh ould call 911 or go to the nearest emergency room? not applicable documented in this encounter Plan of Treatment Not on filedocumented as of this encounter Visit Diagnoses Not on filedocumented in this encounter"
--- OUTSIDE RECORDS SUMMARY | ~2020-04-25 | XMS | Encounter Summary ---
Demographics + + + | Address | [address] [place] [address] | | | [place] [address] | + + + | Home Phone | | + + + | Preferred Language | Unknown | + + + | Marital Status | Single | + + + | Caodaism Affiliation | 1041 | + + + [...] Team Providers + +------+ + | Care Furnace Firer Name | Role | Phone | + +------+ + | nAat Pickett | PCP | | + +------+ [...] + + | 10/02/ | Telephone | [facility] | Anastasia Argueta, | Medication Question | | 2019 | | NEUROLOGY 1100 | MD Alexander JAMES | | | | | T[place]SHA[address] IVAN | [place], [place] | | | | | [place], [place] | [address] | | | | | [address] | [phone] | | | | | [phone] | | | +--------+ + + + [...] Miscellaneous Notes Telephone Encounter - Keenan Holland, Mine Development Engineer - 10/03/2019 12:19 PM PSTI tried [...] transfer the call to a theodora flores decision support manager was caller made aware that if at any time she feels it is an emergency they sh ou call 911 or go to the nearest emergency room? not applicable documented in this encounter Plan of Treatment Not on filedocumented as of this encounter Visit Diagnoses Not on filedocumented in this encounter"
--- OUTSIDE RECORDS SUMMARY | ~2020-04-25 | XMS | Encounter Summary ---
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 I also explained patient that if they need it group home, we will then a dd supplements and [...] RAFFI Ji who comes in for recent [facility] follow up in hospital. She was seen [...] Headache free time- none Location - [place] always Character- pounding headaches, throbbing headaches [...] and daughter , lives with daughter in [facility] Highest education level: GED with some [...] stopping medication while 40% patients relapse requiring long term care pharmacist continua tion of medication. I also explained patient that if they need it group home, we will then a dd supplements and [...]
--- OUTSIDE RECORDS SUMMARY | ~2020-04-25 | XMS | Encounter Summary ---
Demographics + + + | Address | [address] [place] [address] | | | [place] [address] | + + + | Home Phone | | + + + | Preferred Language | Unknown | + + + | Marital Status | Single | + + + | Hoahaoism Affiliation | 1041 | + + + | Race | or | + + + | Ethnic Group | Not or | + + + Author + + + | Author | [facility] | | | and [place] | + + + | Organization | [facility] | | | and [...] Team Providers + +------+ + | Care Radiology Supervisor Name | Role | Phone | [...] + + | 10/04/ | Telephone | [facility] | Keenan Holland, | Results | | 2020 | | NEUROLOGY 1100 | Audio Operator | | | | | [address] | | | | | | [place] | | | | | | [address] | | | | | | [phone] | | | +--------+ + + + [...] Miscellaneous Notes Telephone Encounter - Keenan Holland Audio Operator - 10/04/2019 12:54 PM PSTReceived l ab results from [facility]. Given to doctor for review. documented in this encounter Plan of Treatment Not on filedocumented as of this encounter Visit Diagnoses Not on filedocumented in this encounter"
--- OUTSIDE RECORDS SUMMARY | ~2020-04-25 | XMS | Encounter Summary ---
Demographics + + + | Address | [address] [place] [address] | | | [place] [address] | + + + | Home Phone [...] Author + + + | Author | [facility] | | | and [place] | + + + | Organization | [facility] | | [...] Team Providers + +------+ + | Care Qm Consultant Name | Role | Phone | [...] Provider Unknown | | | | | [place], [place] | [phone] | | | | | [address] | | | | | | [phone] | | | +--------+ + + + [...]
--- OUTSIDE RECORDS SUMMARY | ~2020-04-25 | XMS | Encounter Summary ---
Demographics + + + | Address | [address] [place] [address] | | | [place] [address] | + + + | Home Phone [...] Author + + + | Author | [facility] | | | and [place] | + + + | Organization | [facility] | | | [...] Team Providers + +------+ + | Care Inside Sales Name | Role | Phone | + [...] + + | 01/09/ | Telephone | [facility] | Keenan Holland, | Lab Results | | 2019 | | NEUROLOGY 1100 | Weekend Receptionist | | | | | [address] | | | | | | [place], [place] | | | | | | [address] | | | | | | [phone] | | | +--------+ + + + [...] Miscellaneous Notes Telephone Encounter - Keenan Holland, Weekend Receptionist - 01/11/2020 11:33 AM PDTI do not, thank you. I have printed labs and sent to [facility] I also sent prescriptions to [facility] as well. Thank you ! :)Electronically signed by Keenan Holland Weekend Receptionist at 03/2020 11:33 AM PDTTelephone Encounter - Anastasia Argueta MD - 01/11/2020 11:15 AM PDTLet m e know if u need order, it should be in system , if not let me know. Thanks mannava elephone [employer] pooja - Keenan Holland, Weekend Receptionist - 01/11/2020 11:06 AM PDTCalled Steffi back, she st ated yes she got blood work done at [facility] but doesn't know if that was recent or A little while ago. She states she is sorry she is very forgetful and she doesn't think she got recent lab work done but will. I let her know if was ok and thank you. Will send her lab order to [facility] so she can get them done. [...] like a call back. Additional Call Details: [facility] labs received fax, however the patient has not done th e labs requested at their clinic elephone Encounter - Keenan Harley, Weekend Receptionist - 01/10/2020 12:39 PM PDTRequested Lab results from [facility]. docu mented in this encounter Plan of Treatment Not on filedocumented as of this encounter Visit Diagnoses Not on filedocumented in this encounter"
--- OUTSIDE RECORDS SUMMARY | ~2020-04-25 | XMS | Clinical Summary ---
Demographics + + + | Address | [address] [place] [address] | | | [place] [address] | + + + | Home Phone | | + + + | Preferred Language | Unknown | + + + | Marital Status | Single | + + + | Jain Affiliation | 1041 | + + + [...] Team Providers + +------+ + | Care Staffing Assistant Name | Role | Phone | [...] +---------+--------+ | [employer] | CAREOR | [id number] | | [id number] | | Medica | | HMO | EGON | | 019-Pr | 0 | | id | | | [place] | | esent | | | | | | [place] | | | | | | | | PACIFI | | | | | | | | C PROPULSION GENERATOR REPAIRER | | | | | | | | MDCD | | | | | | | | HMO [place] | | | | | | + +--------+ +--------+ +---------+--------+ | [employer] | MODA | [id number] | | [phone] | | Medica | | MEDICAID HMO | HEALTH | | 020-Pr | 1 | | id | | | MDCD | | esent | | | | | | HMO [place] | | | | | | + +--------+ +--------+ +---------+--------+ | [facility] | IHS | [id number] | | | | Indemn | | [...] Person | Self | [birth year] | [address] | | | al/Fam | | 1965 | [phone] | [address] [place] | | | [place] | | | [address] (Home) | [address] | + +--------+ +--------+ + + | Steffi Bishop | Person | Self | [birth year] | | [address] | | | al/Fam | | 1965 | [phone] | [address] [place] | | | [place] | | | 6 ([place]) | [address] | + +--------+ +--------+ + + Advance Directives + + + + + | Type | Date Recorded | Patient | Explanation | | | | Hazmat Cdl A Driver | | + + + + + | Power of | | | | | Furniture Mover Helper | | | | + + + [...]
--- OUTSIDE RECORDS SUMMARY | ~2020-04-25 | XMS | Encounter Summary ---
Demographics + + + | Address | [address] [place] [address] | | | [place] [address] | + + + | Home Phone | | + + + | Preferred Language | Unknown | + + + | Marital Status | Single | + + + | Yarsani Affiliation | 1041 | + + + [...] Team Providers + +------+ + | Care Exec. Creative Director Name | Role | Phone | + [...] + + | 10/24/ | Telephone | [facility] | Thuan Pulliam | New Patient (Same | | 2019 | | GASTROENTEROLOGY | MD Araceli [address] | day cancellation ) | | | | [address] | [place] [address] | | | | | [place], [place] | [phone] | | | | | [address] | | | | | | [phone] | | | +--------+ + + + [...] is currently in the emergency room in [facility] from a seizure. Will call at a later time to reschedule If this is a symptom based call, was patient offered triage? Not Applicable If this is a symptom based call and you were unable to immediately transfer the call to a theodora flores senior qualitative researcher was caller made aware that if at any time she feels it is an emergency they sh ould call 911 or go to the nearest emergency room? not applicable documented in this encounter Plan of Treatment Not on filedocumented as of this encounter Visit Diagnoses Not on filedocumented in this encounter"
[~2020-04-25 03:57] MED LIST changes: +ACYCLOVIR800 MG PO; +INDOMETHACIN25 MG PO; +KEPPRA500 MG PO; +NASAL DECONGEST30 M2 PO; +OMEPRAZOLE20 MG PO; +PROPRANOLOL HCL10 MG PO; +VITAMIN D250 MCG PO; +ZOFRAN4 MG PO; +ZYRTEC10 MG PO
--- OUTSIDE RECORDS SUMMARY | 2020-04-25 04:00 | XMS ---
PreManage Notification: SATHYA CUETO Security Dredge Captain Events No recent Security Events currently on file CRITERIA MET - [facility] CARE PROVIDERS RAINA RETANA [facility] PHONE: [phone] SHEFALI GOLDBERG [facility] 06/21/2018-Current PHONE: Unknown SHU BELTRAN Clinic/Center: [facility] 12/26/2018-Critical access hospital AT PHONE: [phone] ART SMITH Cia Agent/Sanitation Engineer [facility] PHONE: [phone] CAROLYN VERGARA MD Psychiatry \T\ Neurology: Psychiatry 07/25/2019-Current PHONE: Unknown Team, Lashmeet Cia Agent/Sanitation Engineer [facility] PHONE: Unknown Name [facility] 06/23/2019-Current PHONE: [phone] Guidelines Source: [facility] Guidelines Date: 01/18/2019 Care Coordination: Client receives services at [facility]. For discharge planning and coordination of care, please contact client\T\#39;s\T\nbsp;Sanitation Engineer: Quita Banuelos [facility]\T\nbsp; [phone] Care History Medical/Surgical 07/20/2018 [facility] - PATIENT WAS SEEN BY PCP ON 06/15/18. - PATIENT HAS NO SHOWED TO APTS FOR THE PAST YEAR THE LAST PCP APT WAS ON . 07/19/2018 [facility] \T\middot;\T\nbsp; PATIENT- [facility] ELIGIBLE \T\middot;\T\nbsp; PLEASE REFER PATIENT TO [facility] FOR NON EMERGENT MEDICAL NEEDS. \T\middot;\ T\nbsp; [facility] CAN SEE PATIENTS SAME DAY FOR APTS IF PATIENT CALLS FIRST THING IN THE MORNING. [facility] MO[facility] TOTAL 6 NOTE: Visits indicate total known visits. ED/UCC VISIT TRACKING (12 MO.) [facility]25/2020 03[facility] Emergency COMPLAINT: - POSS SEIZURE 12/22/2019 09:30 [facility] [place] TYPE: Emergency COMPLAINT: - SEIZURE DIAGNOSES: - Unspecified bacterial pneumonia - Allergy status to analgesic agent status - Unspecified convulsions - Other alf (current) drug therapy - Major depressive disorder, single episode, unspecified - Epilepsy, unspecified, not intractable, with status epileptic 10/24/2019 07:06 [facility] [place] TYPE: Emergency COMPLAINT: - SEIZURE DIAGNOSES: - Allergy status to analgesic agent status - Major depressive disorder, single episode, unspecified - Epilepsy, unspecified, not intractable, without status epilep - Other joint terminal attack controller (current) drug therapy - Allergy status to other drugs, medicaments and biological sub 07/24/2019 10:33 [facility] [place] TYPE: Emergency COMPLAINT: - NUMBNESS AND TINGLEING 06/22/2019 20:02 [facility] [place] TYPE: Emergency COMPLAINT: - POSS SEUZURE DIAGNOSES: - Allergy status to other drugs, medicaments and biological sub - Unspecified convulsions - Allergy status to analgesic agent status - Other joint terminal attack controller (current) drug therapy - Nicotine dependence, unspecified, uncomplicated - Epilepsy, unspecified, not intractable, with status epileptic - Major depressive disorder, single episode, unspecified 05/12/2019 21:23 [facility] TYPE: Emergency COMPLAINT: - WEAKNESS, NAUSEA DIAGNOSES: - Allergy status to analgesic agent status - Hypokalemia - Allergy status to other drugs, medicaments and biological sub - Nicotine dependence, unspecified, uncomplicated - Alcohol abuse with intoxication, unspecified - Cannabis abuse with intoxication, unspecified - Other joint terminal attack controller (current) drug therapy - Major depressive disorder, single episode, unspecified INPATIENT VISIT TRACKING (12 MO.) 12/22/2019 16:46 [facility] TYPE: Internal Medicine DIAGNOSES: - Status Epilepticus - Epilepsy, unspecified, not intractable, with status epileptic 07/24/2019 10:[address] [facility] [place] TYPE: Observation COMPLAINT: - FACIAL NUMBNESS DIAGNOSES: - Other seasonal allergic rhinitis - Epilepsy, unspecified, not intractable, without status epilep - NIHSS score 2 - Anesthesia of skin - Allergy status to other drugs, medicaments and biological sub - Other joint terminal attack controller (current) drug therapy - Major depressive disorder, single episode, unspecified - Headache - Post-traumatic stress disorder, unspecified - Other visual disturbances [email or web address]
[2020-04-25] MEDS ORDERED: KEPPRA500 MG PO (11:03)
[2020-04-25] MEDS ORDERED: DILANTIN100 MG PO (11:03)
== END 2020-04-25 12:10 | disposition home or self-care (01) ==
LOC: ED 03:57
DX: G40.909 Epilepsy, unspecified, not intractable, without status epilepticus (principal); F19.10 Other psychoactive substance abuse, uncomplicated; F32.9 Major depressive disorder, single episode, unspecified; Z88.6 Allergy status to analgesic agent; Z88.8 Allergy status to other drugs, medicaments and biological substances; Z79.899 Other long term (current) drug therapy; Y90.0 Blood alcohol level of less than 20 mg/100 ml
CPT/HCPCS: 51702; 70450; 71045; 80053; 81001; 82550; 82803; 83605; 83735; 85025; 99284-25; G0480; J1953; J2060; J3480; J7030; J7060

== ENCOUNTER 2020-05-21 11:49 | Emergency (ER) | payer OTHER ==
[~2020-05-21] VITALS: Ht 162.6 cm; Wt 54.5 kg
--- OUTSIDE RECORDS SUMMARY | ~2020-05-21 | XMS | Encounter Summary ---
Demographics + + + | Address | [address] [place] [address] | | | [place] [address] | + + + | Home Phone | | + + + | Preferred Language | Unknown | + + + | Marital Status | Single | + + + | Rastafarian Affiliation | 1041 | + + + | Race | or | + + + | Ethnic Group | Not or | + + + Author + + + | Author | [facility] | | | and [place] | + + + | Organization | [facility] | | | and [...] Team Providers + +------+ + | Care Monomer Purification Operator Name | Role | Phone | + +------+ + | Anat Pickett | PCP | | + +------+ + Reason for Visit Evaluate & Treat (Urgent) + +--------+ + + + + | Status | Reason | Specialty | Diagnoses / | Referred By | Referred To | | | | | Procedures | Contact | Contact | + +--------+ + + + + | Authorized | | Neurology | Diagnoses | Piyush, | Ellie, | | | | | | RAFFI Coppola | MD Anastasia | | | | | Tonic-clonic | [address] | [address] | | | | | seizure | [address] | [address] | | | | | disorder | [address], | [place], [place] | | | | | ([facility]) | [place] [address] | [address] Phone: | | | | | | Phone: | [phone] | | | | | | [phone] | Fax: | | | | | | Fax: | [phone] | | | | | | [phone] | | + +--------+ + + + + Encounter Details +--------+ + + + + | Date | Type | Department | Care Team | Description | +--------+ + + + + | 12/03/ | Virtual | [facility] | Anastasia Argueta, | Seizure disorder | | 2020 | Office | NEUROLOGY [address] | [address] | ([facility]) (Primary Dx); | | | Visit | [address] | [place], [place] | Chronic migraine; | | | | [place], [place] | [address] | History of alcohol | | | | [address] | [phone] | abuse | | | | [phone] | | | +--------+ + + + + Social History + +-------+ +--------+------+ | Tobacco Use | Types | Packs/Day | Years | Date | | | | | Used | | + +-------+ +--------+------+ | Former Smoker | | 0.25 | | | + +-------+ +--------+------+ + +---+---+---+ | Smokeless Tobacco: | | | | | Never Used | | | | + +---+---+---+ + + +---------+ + | Alcohol Use [...] + + documented as of this encounter Progress Notes Anastasia Argueta MD - 12/04/2019 12:00 PM PDTFormatting of this note might be different fro m the original. Assessment 1. Seizure disorder (HCC) 2. Chronic migraine Plan: Seizure disorder-> History of previous provoked seizures in June 2019 in the setting of methamphetamine and alcohol abuse. Patient continues to have breakthrough seizures per marcello thurman's history since then although she was weaned off of seizure medication in previous vis its given she denied any ongoing seizures at that time. Patient had 4 recurrent seizures on 12/03/2019 in the setting of likely alcohol use/withdrawal given she had relapse in alcohol drinking over the weekend. Recurrent seizure risk high given ongoing alcohol abuse and lik rayo prior damage. We will start her back on seizure medication and discussed medication Kep pra today with the patient and daughter. I discussed with patient and daughter extensively regarding importance of alcohol cessation given high potential for lowering seizure threshol d with breakthrough seizures as well as cognitive damage. I also explained patient that dipesh akthrough seizures can result in more worsening of her baseline headaches. Plan- -Start levetiracetam 500 mg twice daily. -Asked daughter to monitor her for further seizures and control. To let us know if she con tinues to have further seizures despite addition of above medication. Necessary dosage incr ements could be done based on response. - I reminded her to refrain from driving until she has been seizure-free for 6 months or lo nger after a breakthrough seizure. - I reminded her to refrain from drinking alcohol while taking seizure medications as alcoh ol lowered seizure threshold. Patient was also advised to refrain from marijuana use. - The patient was instructed not to drive a vehicle or vessel of any kind, swim, bathe amara e, boat, scuba, work on heights, operate heavy machines or cook on open fire for six (6) mon ths from any event of loss of consciousness, altered awareness or loss of body control -Discussed to call 911 if patient has seizure episode lasting greater than 5 minutes and if she has more than 2 breakthrough seizures. Chronic migraine->patient continues to have daily headaches and not improved since being on propranolol 20 mg twice daily. -Increase propranolol to 40 mg twice daily. Monitor for side effects. Clinical discussion length: 21-30 min (63445) Patient has not been seen in office within the past 7 days, and outcome of this call is not to recommend soonest available office visit. Follow up Instructions: -Follow-up in 2 months or sooner if needed Subjective: Patient ID: Steffi Bishop is a 54 y.o. female, for seizures and headaches CC: Follow up for seizures and migraine headaches Participants: Patient and daughter Catarina Participant verbally confirmed the choice to initiate care by, and consents to receive care by Telephone. HPI: Patient is a 54-year-old woman with history of methamphetamine and alcohol abuse, currently in remission from substance abuse but with ongoing relapses of alcohol use. Patient was ad mitted to [facility] in June 2019 with status epilepticus in the sett ing of alcohol, methamphetamine use. Patient was discontinued off of phenytoin after her ho spital admission given that the seizures were initially considered to be provoked by alcohol and substance abuse and as patient denied any further recurrent seizures. She also has bella ropathy issues as well as chronic migraine headaches since hospital discharge with previous history of infrequent headaches. Indomethacin trial was carried out for possible hemicrania continua headache given strictly unilateral headaches in the past but this was not helpful. Patient was started on migraine preventive medications. Interval History: Seizures- patient called this morning with complaint of 4 seizure episodes occurring overnight. I di scussed with patient on the phone regarding the seizures which she does not have any recolle ction of I spoke with patient's daughter Catarina who witnessed these events last night. Sherry mosqueda mentions that she had four seizures last night. She did lot of physical work at home per daughter yesterday. She left daughter's house on Wednesday and had alcohol on Wednesday and [address] per daughter as well as marijuana smoking. First seizure -around 4:30 PM, patient was in bathroom, was found by daughter on the floor unresponsive, then was restless and subsequently daughter helped her to couch. She was con fused and postictal with restlessness lasting for 30 minutes followed by second seizure. Second seizure-occurred around 5 PM, she was lying on the couch and daughter witnessed star ing episode followed by tonic clonic seizures with neck extended and extremities curled , du ration for one minute followed by drooling and postictal state for an hour followed by lot o f fatigue Third seizure- Around 7 PM about 2 hours after 2nd one, she again had another tonic clonic seizure lasting for about ~ 1:30 min followed by drowsiness and confusion for 1-1:30 hour Fourth seizure-> close to 9 PM, she was laying on couch, daughter saw her again stiffening, with groaning noises followed by clonic movements and stiffening and this lasted for about 5-10 minutes with ongoing groaning. This ceased at 09:20 PM followed by sleepiness and swea ting. She did not have any urinary or bowel incontinence but she had lip bite. Postictal s voss resolved around 12:30 am. She endorses fatigue this morning. Daughter mentions that she has had breakthrough seizures three other times since Jun 2019 e xcluding last night events. These events are mostly during evenings. She mentions that the se were out of alcohol consumption most of the time. Patient has denied any seizure episod es in our previous clinic visits since July 04. And currently not on any seizure medicat ions. Headaches-> patient endorses ongoing daily headaches without any relief since last visit. She is currently taking propranolol 20 mg twice daily and denies any side effects. documented in this en counter Plan of Treatment Not on filedocumented as of this encounter Visit Diagnoses + + | Diagnosis | + + | Seizure disorder (HCC) - Primary Unspecified epilepsy without mention of intractable | | epilepsy | + + | Chronic migraine Chronic migraine without aura, without mention of intractable | | migraine without mention of status migrainosus | + + | History of alcohol abuse Nondependent alcohol abuse, in remission | + + documented in this encounter"
--- OUTSIDE RECORDS SUMMARY | ~2020-05-21 | XMS | Encounter Summary ---
Demographics + + + | Address | [address] [place] [address] | | | [place] [address] | + + + | Home Phone | | + + + | Preferred Language | Unknown | + + + | Marital Status | Single | + + + | Bahai Affiliation | 1041 | + + + | Race | or | + + + | Ethnic Group | Not or | + + + Author + + + | Author | [facility] | | | and [place] | + + + | Organization | [facility] | | | [...] Team Providers + +------+ + | Care Summer Law Clerk Name | Role | Phone | + +------+ + PCP | Unavailable | + +------+ + Encounter Details +--------+ + + + + | Date | Type | Department | Care Team | Description | +--------+ + + + + | 08/18/ | Hospital | C GENERIC IP | Conversion | Pain | | 2013 | Encounter | CONVERSION DEP [address] | Transaction, | | | | | [address] | Provider Unknown | | | | | [place], [place] | [phone] | | | | | [address] | | | | | | [phone] | | | +--------+ + + + + Social History + +-------+ +--------+------+ | Tobacco Use | Types | Packs/Day | Years | Date | | | | | Used | | + +-------+ +--------+------+ | Never Assessed | | | | | + +-------+ +--------+------+ + + + | Sex Assigned at | Date Recorded | | | | + + + | Not on file | | + + + documented as of this encounter Plan of Treatment Not on filedocumented as of this encounter Procedures + +--------+ + + + | Procedure Name | Priori | Date/Time | Associated Diagnosis | Comments | | | ty | | | | + +--------+ + + + | XR CHEST 1 VIEW | Routin | 05/06/2009 | | Results for this | | | e | 5:25 AM | | procedure are in the | | | | PDT | | results section. | + +--------+ + + + documented in this encounter Results XR Chest 1 Vw (05/06/2009 5:25 AM PDT) + + | Specimen | + + | | + + + + + | Narrative | Performed At | + + + | This is a non-reportable procedure without a radiologist report and | | | is used for image storage only | | + + + + + | Procedure Note | + + | Maximus Bass - 04/22/2019 1:05 AM PDT This is a non-reportable procedure | | without a radiologist report and isused for image storage only | + + documented in this encounter Visit Diagnoses + + | Diagnosis | + + | Pain Generalized pain | + + documented in this encounter"
--- OUTSIDE RECORDS SUMMARY | ~2020-05-21 | XMS | Encounter Summary ---
Demographics + + + | Address | [address] [place] [address] | | | [place] [address] | + + + | Home Phone | | + + + | Preferred Language | Unknown | + + + | Marital Status | Single | + + + | Buddhist Affiliation | 1041 | + + + | Race | or | + + + | Ethnic Group | Not or | + + + Author + + + | Author | [facility] | | | and [place] | + + + | Organization | [facility] | | | [...] Team Providers + +------+ + | Care Surgery Specialist Name | Role | Phone | + +------+ + | Anat Pickett | PCP | | + +------+ + Reason for Visit + +--------+ + | Reason | Onset | Comments | | | Date | | + +--------+ + | Appointment | 09/20/ | | | | 2020 | | + +--------+ + Encounter Details +--------+ + + + + | Date | Type | Department | Care Team | Description | +--------+ + + + + | 09/20/ | Telephone | [facility] | Keenan Holland, | Appointment | | 2019 | | NEUROLOGY [address] | Junior Java Developer | | | | | [address] | | | | | | [place], [place] | | | | | | [address] | | | | | | [phone] | | | +--------+ + + + [...] Miscellaneous Notes Telephone Encounter - Keenan Holland, Junior Java Developer - 09/20/2019 2:34 PM PST#1 Call- L eft message for pt to call us back to confirm. documented in this encounter Plan of Treatment Not on filedocumented as of this encounter Visit Diagnoses Not on filedocumented in this encounter"
--- OUTSIDE RECORDS SUMMARY | ~2020-05-21 | XMS | Clinical Summary ---
Demographics + + + | Address | [address] [place] [address] | | | [place] [address] | + + + | Home Phone | | + + + | Preferred Language | Unknown | + + + | Marital Status | Single | + + + | Jehovah'S Witness Affiliation | 1041 | + + + [...] Team Providers + +------+ + | Care Lead Machinist Name | Role | Phone | + +------+ + | Anat Pickett | PCP | | + +------+ + Allergies + + + + + + | Active Allergy | Reactions | Severity | Noted | Comments | | | | | Date | | + + + + + + | Aspirin | Other (See Comments) | High | 06/22/20 | seizure | | | | | 19 | | + + + + + + | Bee Pollen | Other (See Comments) | | 09/26/19 | Blacks out, swells | | | | | 20 | up | + + + + + + Medications + + + +---------+------+------+-------+ | Medication | Sig | Dispensed | Refills | Star | End | Statu | | | | | | t | Date | s | | | | | | Date | | | + + + +---------+------+------+-------+ | midodrine | Take 1 tablet by | 30 | 0 | 10/2 | | Activ | | (PROAMATINE) 10 MG | mouth 3 times daily | tablet | | 01/23 | | e | | tablet | as needed (for | | | 19 | | | | | SBP<90). | | | | | | + + + +---------+------+------+-------+ | thiamine (VITAMIN | Take 1 tablet by | 30 | 0 | 06/07 | | Activ | | B-1) 100 mg tablet | mouth Daily. | tablet | | 02/23 | | e | | | | | | 19 | | | + + + +---------+------+------+-------+ | sertraline | Take 1 tablet by | 30 | 0 | 06/07 | | Activ | | (ZOLOFT) 25 mg | mouth Daily. | tablet | | 05/26 | | e | | tablet | | | | 19 | | | + + + +---------+------+------+-------+ | omeprazole | Take 1 tablet by | 30 each | 1 | / | | Activ | | (PRILOSEC) 20 mg | mouth every morning | | | 09/25 | | e | | TBECIndications: | (before breakfast). | | | 20 | | | | Hemicrania continua | | | | | | | + + + +---------+------+------+-------+ | ondansetron | Take 1 tablet by | 60 | 3 | 03/0 | | Activ | | (ZOFRAN ODT) 8 mg | mouth every 12 hours | tablet | | 6/20 | | e | | disintegrating | as needed for | | | 20 | | | | tabletIndications: | Nausea or Other | | | | | | | Chronic migraine | (headache). | | | | | | + + + +---------+------+------+-------+ | folic acid 1 mg | Take 1 tablet by | 30 | 1 | 04/2 | | Activ | | tablet | mouth Daily. | tablet | | 1/20 | | e | | | | | | 20 | | | + + + +---------+------+------+-------+ | acyclovir | | | 0 | 04/1 | | Activ | | (ZOVIRAX) 800 mg | | | | 0/20 | | e | | tablet | | | | 20 | | | + + + +---------+------+------+-------+ | omeprazole | | | 0 | 03/3 | | Activ | | (PRILOSEC) 20 mg | | | | 1/20 | | e | | capsule | | | | 20 | | | + + + +---------+------+------+-------+ | propranolol | Take 1 tablet by | 60 | 5 | 05/0 | | Activ | | (INDERAL) 40 mg | mouth 2 times daily. | tablet | | 6/20 | | e | | tabletIndications: | | | | 20 | | | | Chronic migraine | | | | | | | + + + +---------+------+------+-------+ | levETIRAcetam | Take 1 tablet by | 60 | 2 | 05/0 | | Activ | | (KEPPRA) 750 MG | mouth 2 times daily. 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 | + + + | Smoker | 06/22/2019 | + + + | History of alcohol abuse | 06/22/2019 | + + + | Major depressive disorder | 06/22/2019 | + + + | Chronic hepatitis C without hepatic coma | 06/22/2019 | + + + | History of posttraumatic stress disorder (PTSD) | 06/22/2019 | + + + | Severe episode of recurrent major depressive disorder, without | 12/01/2018 | | psychotic features | | + + + | PTSD (post-traumatic stress disorder) | 12/01/2018 | + + + Resolved Problems + + + + | Problem | Noted | Resolved | | | Date | Date | + + + + | Status epilepticus | 06/22/20 | | | | 19 | 0 | + + + + | Generalized tonic-clonic seizure | 06/22/20 | | | | 19 | 9 | + + + + | Post-ictal state | 06/22/20 | | | | 19 | 0 | + + + + Immunizations + + + + | Name | Administration Dates | Next Due | + + + + | INFLUENZA PF | 07/02/2019 | | | QUAD(PED/ADOL/ADULT) | | | | ,PSKT or VIAL | | | + + + + Family History + + +---------+ + | Medical History | Relation | Name | Comments | + + +---------+ + | Diabetes | Brother | | | + + +---------+ + | Diabetes | Mother | tammy | | | | | Wilfredo | | + + +---------+ + + +---------+ + + | Relation | Name | Status | Comments | + +---------+ + + | Brother | | | | + +---------+ + + | Mother | tammy | | | | | Wilfredo | | | + +---------+ + + Social History + +-------+ +--------+------+ [...] on file | | + + + Last Filed Vital Signs + + + + + | Vital Sign | Reading | Time Taken | Comments | + + + + + | Blood Pressure | 100/59 | 12/25/2019 12:49 PM | | | | | PDT | | + + + + + | Pulse | 94 | 12/25/2019 12:49 PM | | | | | PDT | | + + + + + | Temperature | 36.9 C (98.5 F) | 12/25/2019 7:49 AM | | | | | PDT | | + + + + + | Respiratory Rate | 18 | 12/25/2019 12:49 PM | | | | | PDT | | + + + + + | Oxygen Saturation | 98% | 12/25/2019 12:49 PM | | | | | PDT | | + + + + + | Inhaled Oxygen | - | - | | | Concentration | | | | + + + + + | Weight | 68.3 kg (150 lb 9.2 | 12/25/2019 8:24 AM | | | | oz) | PDT | | + + + + + | Height | 162.6 cm (5' 4.02") | 12/25/2019 8:24 AM | | | | | PDT | | + + + + + | Body Mass Index | 25.83 | 12/25/2019 8:24 AM | | | | | PDT | | + + + + + Plan of Treatment + + + + + | Health Maintenance | Due Date | Last | Comments | | | | Done | | + + + + + | Cervical Cancer | | | | | Screening (Pap) | 5 | | | + + + + + | Breast Cancer | | | | | Screening | 0 | | | + + + + + | Colorectal Cancer | | | | | Screening | 5 | | | | (Colonoscopy) | | | | + + + + + | Vaccine: Influenza | | 11/02/19 | | | (#1) | 0 | 20, | | | | | 07/02/20 | | | | | 19, | | | | | 06/12/20 | | | | | 17, | | | | | Addition | | | | | al | | | | | history | | | | | exists | | + + + + + | Med Mgmt: Cr | | 12/25/19 | | | | 1 | 20, | | | | | 12/24/19 | | | | | 20, | | | | | 12/23/19 | | | | | 20, | | | | | Addition | | | | | al | | | | | history | | | | | exists | | + + + + + | Med Mgmt: eGFR | | 12/25/19 | | | | 1 | 20, | | | | | 12/24/19 | | | | | 20, | | | | | 12/23/19 | | | | | 20, | | | | | Addition | | | | | al | | | | | history | | | | | exists | | + + + + + | Medication | | 12/25/19 | | | Management | 1 | 20 | | + + + + + | Vaccine: | | 04/07/20 | | | Dtap/Tdap/Td (2 - | 1 | 11, | | | Td) | | 10/07/19 | | | | | 02, | | | | | 01/25/19 | | | | | 89 | | + + + + + | Hepatitis C | Completed | 06/22/20 | | | Screening | | 19 | | + + + + + | Vaccine: Zoster | Completed | 11/02/19 | | | | | 20, | | | | | 11/03/19 | | | | | 19 | | + + + + + [...] +---------+--------+ | [employer] | CAREOR | [id number] | | [id number] | | Medica | | HMO | EGON | | 019-Pr | 0 | | id | | | [place] | | esent | | | | | | [place] | | | | | | | | PACIFI | | | | | | | | C CORRECTIONS CORPORAL | | | | | | | | MDCD | | | | | | | | [place]MO [place] | | | | | | + +--------+ +--------+ +---------+--------+ | [employer] | MOD[place] | [id number] | | [phone] | | Medica | | MEDICAID HMO | HEALTH | | 020-Pr | 1 | | id | | | MDCD | | esent | | | | | | [place] | | | | | | + +--------+ +--------+ +---------+--------+ | [employer] | IHS | [id number] | | | | Indemn | | [...] Person | Self [birth year] | [address] | | | al/Fam | | 1965 | [phone] | [address] [place] | | | [place] | | | [address] (Home) | [address] | + +--------+ +--------+ + + | Steffi Bishop | Person | Self [birth year] | [address] | | | al/Fam | | 1965 | [phone] | [address], [place] | | | [place] | | | [address] (Home) | [address] | + +--------+ +--------+ + + | Steffi Bishop | Person | Self [birth year] | | [address] | | | al/Fam | | 1965 | [phone] | [address], [place] | | | [place] | | | 6 (Home) | [address] | + +--------+ +--------+ + + Advance Directives + + + + + | Type | Date Recorded | Patient | Explanation | | | | Bleach Boiler Puller | | + + + + + | Power of | | | | | Scale Agent | | | | + + + + + | Advance | 06/23/2019 | | | | Directive | 2:54 PM | | | + + + + + + + + + + | Code Status | Date | Date | Comments | | | Activated | Inactivated | | + + + + + | Full Code | 12/23/2019 | 12/25/2019 | | | | 10:52 AM | 3:46 PM | | + + + + + + + + +---+ | | | | | + + + +---+ | Full Code | 12/22/2019 | 12/23/2019 | | | | 4:52 PM | 8:51 AM | | + + + +---+ + + + +---+ | | | | | + + + +---+ | Full Code | 06/24/2019 | 07/04/2019 | | | | 7:24 PM | 1:04 AM | | + + + +---+ + + + +---+ | | | | | + + + +---+ | Full Code | 06/22/2019 | 06/24/2019 | | | by default | 11:31 PM | 7:24 PM | | | - TBD | | | | + + + +---+
--- OUTSIDE RECORDS SUMMARY | ~2020-05-21 | XMS | Encounter Summary ---
Demographics + + + | Address | [address] [place] [address] | | | [place] [address] | + + + | Home Phone | | + + + | Preferred Language | Unknown | + + + | Marital Status | Single | + + + | Confucianism Affiliation | 1041 | + + + | Race | or | + + + | Ethnic Group | Not or | + + + Author + + + | Author | [facility] | | | and [place] | + + + | Organization | [facility] | | [...] Team Providers + +------+ + | Care Quality Compliance Coordinator Name | Role | Phone | + [...] + + | 09/25/ | Telephone | [facility] | Keenan Holland, | Appointment | | 2019 | | NEUROLOGY [address] | Earth Sciences Professor | | | | | [address] | | | | | | [place], [place] | | | | | | [address] | | | | | | [phone] | | | +--------+ + + + [...] Miscellaneous Notes Telephone Encounter - Keenan Holland, Earth Sciences Professor - 09/25/2019 10:21 AM PSTConfirmed appt. el ephone Encounter - Mckay Loyd - 09/25/2019 9:55 AM PSTJulie, is returning call for Appointment and would like a call back. Additional Call Details: Returning call to confirm appt. elephone Encounter - Keenan Holland, Earth Sciences Professor - 09/25/2019 9:21 AM PST#3 Call - called Margo at she answered and stated she doesn't live [...] not get confirmation.Electronically signed by Keenan Holland, Earth Sciences Professor at 2019 9:30 AM PSTdocumented in this encounter Plan of Treatment Not on filedocumented as of this encounter Visit Diagnoses Not on filedocumented in this encounter"
--- OUTSIDE RECORDS SUMMARY | ~2020-05-21 | XMS | Encounter Summary ---
Demographics + + + | Address | [address] [place] [address] | | | [place] [address] | + + + | Home Phone | | + + + | Preferred Language | Unknown | + + + | Marital Status | Single | + + + | Yarsanism Affiliation | 1041 | + + + | Race | or | + + + | Ethnic Group | Not or | + + + Author + + + | Author | [facility] | | | and [place] | + + + | Organization | [facility] | | [...] Team Providers + +------+ + | Care Rod Greaser Name | Role | Phone | + +------+ + | Anat Pickett | PCP | | + +------+ + Reason for Visit + +--------+ + | Reason | Onset | Comments | | | Date | | + +--------+ + | Appointment | 12/31/ | | | | 2020 | | + +--------+ + Encounter Details +--------+ + + + + | Date | Type | Department | Care Team | Description | +--------+ + + + + | 12/31/ | Telephone | [facility] | Keenan Holland, | Appointment | | 2019 | | NEUROLOGY [address] | [address] | | | | | [address] | | | | | | [place], [place] | | | | | | [address] | | | | | | [phone] | | | +--------+ + + + [...] Miscellaneous Notes Telephone Encounter - Keenan Holland, Bruise Trimmer - 01/01/2020 11:59 AM Matthew hightower to confirm virual or over the phonie visit with Dr. Argueta. Also asked if we could move her appt to Wed. The 6th at 11am or 1130. documented in this encounter Plan of Treatment Not on filedocumented as of this encounter Visit Diagnoses Not on filedocumented in this encounter"
--- OUTSIDE RECORDS SUMMARY | ~2020-05-21 | XMS | Encounter Summary ---
Demographics + + + | Address | [address] [place] [address] | | | [place] [address] | + + + | Home Phone [...] + | Author | [facility] | | | and [place] | + + + | Organization | [facility] | | | and [...] Team Providers + +------+ + | Care Obstetrics Scrub Nurse Name | Role | Phone | + +------+ + | Anat Pickett | PCP | | + +------+ + Reason for Visit +--------+--------+ + | Reason | Onset | Comments | | | Date | | +--------+--------+ + | Other | 10/03/ | Pts ymptoms getting worse | | | 2020 | | +--------+--------+ + Encounter Details +--------+ + + + + | Date | Type | Department | Care Team | Description | +--------+ + + + + | 10/03/ | Telephone | [facility] | Keenan Holland, | Other (Pts ymptoms | | 2020 | | NEUROLOGY [address] | Teacher Selection Specialist | getting worse) | | | | [address] | | | | | | [place], [place] | | | | | | [address] | | | | | | [phone] | | | +--------+ + + + [...] this encounter Miscellaneous Notes Telephone Encounter - Anastasia Argueta MD - 10/03/2019 2:02 PM PSTPatient will see her PCP on for balance issues, she is falling more often now. So she will talk to PCP abo ms assistive device. No side effects to indomethacin, she will continue to take it. She velazquez s more numbness of left cheek/leg compared to last visit with me, so will also see PCP for o bjective tests and any need for imaging. Not acute numbness but slow worsening. SO not con cerning for stroke at this time. Thanks nohemy elephone Encounter - Keenan Holland, Teacher Selection Specialist - 10/03/2019 12:22 PM PSTPt called back asked to speak wi doctor. Doctor is in a meeting. I asked Steffi if she could tell me what has been going on . She stated since she got out of the hospital on June and since her follow u p with Dr. Argueta on 2019 her symptoms are getting worse. She is have confusion, balance issues, not sleeping, Left foot numbness and her whole left side feel worse then it did when she was her last week. She stated she has called her PCP to see if she can be seen by him. She is waiting for a call back. States to call her mobile #. documented in this encounter Plan of Treatment Not on filedocumented as of this encounter Visit Diagnoses Not on filedocumented in this encounter"
--- OUTSIDE RECORDS SUMMARY | ~2020-05-21 | XMS | Encounter Summary ---
Demographics + + + | Address | [address] [place] [address] | | | [place] [address] | + + + | Home Phone [...] Author + + + | Author | [facility] | | | and [place] | + + + | Organization | [facility] | | | and [...] Team Providers + +------+ + | Care Milk Treater Name | Role | Phone | + [...] + + | 09/27/ | Telephone | [facility] | Oleg Post | Referral | | 2020 | | GASTROENTEROLOGY | MD [address] | | | | | [address] [place], [place] | | | | | [place], [place] | [address] | | | | | [address] | | | | | | [phone] | | | +--------+ + + + [...] PSTSee referral notes/communica tions 09/27/2019 Cary Granado 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 Additional Call Details: Requesting call back with the status of scheduling patient from [facility] If this is a symptom based call, was patient offered triage? Not Applicable If this is a symptom based call and you were unable to immediately transfer the call to a p rovimike animal science professor was caller made aware that if at any time she feels it is an emergency they sh ould call 911 or go to the nearest emergency room? not applicable documented in this encounter Plan of Treatment Not on filedocumented as of this encounter Visit Diagnoses Not on filedocumented in this encounter"
--- OUTSIDE RECORDS SUMMARY | ~2020-05-21 | XMS | Encounter Summary ---
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[place] | | | | | disorder | CR, | [place], [place] | | | | | ([facility]) | [place] [address] | [address] Phone: | | | | | | Phone: | [phone] | | | | | | [phone] | Fax: | | | | | | Fax: | [phone] | | | | | | [phone] | | + +--------+ + + + + Encounter Details +--------+---------+ + + + | Date | Type | Department | Care Team | Description | +--------+---------+ + + + | 09/26/ | Office | [facility] | Anastasia Argueta, | Probable left sided | | 2020 | Visit | NEUROLOGY [address] | [id number] | 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 I also explained patient that if they need it longterm, we will then a dd supplements and [...] RAFFI Ji who [facility]. 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 I also explained patient that if they need it longterm, we will then a dd supplements and [...]
--- OUTSIDE RECORDS SUMMARY | ~2020-05-21 | XMS | Encounter Summary ---
Demographics + + + | Address | [address] [place] [address] | | | [place] [address] | + + + | Home Phone | | + + + | Preferred Language | Unknown | + + + | Marital Status | Single | + + + | Adventism Affiliation | 1041 | + + + | Race | or | + + + | Ethnic Group | Not or | + + + Author + + + | Author | [facility] | | | and [place] | + + + | Organization | [facility] | | | [...] Team Providers + +------+ + | Care Sound Engineering Technician Name | Role | Phone | + [...] Provider Unknown | | | | | [place], [place] | [phone] | | | | | [address] | | | | | | [phone] | | | +--------+ + + + [...]
--- OUTSIDE RECORDS SUMMARY | ~2020-05-21 | XMS | Encounter Summary ---
Demographics + + + | Address | [address] [place] [address] | | | [place] [address] | + + + | Home Phone | | + + + | Preferred Language | Unknown | + + + | Marital Status | Single | + + + | Lutheran Affiliation | 1041 | + + + [...] Team Providers + +------+ + | Care Emergency Medicine Nurse Practitioner Name | Role | Phone | + [...] + + | 08/01/ | Telephone | [facility] | Keenan Holland, | Records Request | | 2018 | | NEUROLOGY [address] | Electric Motor Assembler And Tester | | | | | [place] | | | | | | [place] | | | | | | [address] | | | | | | [phone] | | | +--------+ + + + [...] Miscellaneous Notes Telephone Encounter - Keenan Holland Electric Motor Assembler And Tester - 08/01/2019 8:44 AM PSTReceived cris ch[facility] documented in this encounter Plan of Treatment Not on filedocumented as of this encounter Visit Diagnoses Not on filedocumented in this encounter"
--- OUTSIDE RECORDS SUMMARY | ~2020-05-21 | XMS | Encounter Summary ---
Demographics + + + | Address | [address] [place] [address] | | | [place] [address] | + + + | Home Phone [...] Author + + + | Author | [facility] | | | and [place] | + + + | Organization | [facility] | | | [...] Team Providers + +------+ + | Care Shift Supervisor Melting Name | Role | Phone | + [...] + + | 12/21/ | Hospital | [facility] | GonzalobraulioGabe mann | Status epilepticus | | 2019 - | Encounter | [facility] | MD Evelio Jeff | ([facility]) | | | | CARE FLOOR [address] [place], [place] | | | [address]/ | | [address] | [address] | | | 2019 | | [place], [place] | | | | | | [address] | Erika Myers | | | | | [phone] | MD Evelio Dodson | | | | | | [address] | | | | | | [place] [address] | | | | | | [phone] | | | | | | | | | | | | Jerome Quintanilla MD | | | | | | [address] | | | | | | [place] [address] | | | | | | [phone] | | | | | | | | | | | | Moreno Juares MD | | | | | | [address] | | | | | | [place] [address] | | | | | | [phone] | | | | | | | [...] might be diffe rent from the original. [facility] Service: Hospitalist Discharge Summary Date of Admission: 12/22/2019 Date of Discharge: 12/25/2019 Discharge Provider: Moreno Juares MD Treatment Team: Pérez Paul MD Discharge Diagnoses: Principal Problem: Seizure disorder [...] Lab 12/22/19 2212 PHART 7.382 PO2ART 88 HTN5UIM 39 Y5XRNCAI 97 Lab Results Component Value Date CREA 0.8 12/25/2019 Radiology, personally reviewed Xr Chest Ap Portable Result Date: 12/22/2019 Support apparatus in satisfactory position. Signed by: aDija Aldrich Wendy Sign Date/Time: 12/22/2019 6:50 PM PLAN -discharge home. -follow medications as outlined below. -follow up with providers as indicated. Disposition: home Condition: Stable Code Status: Full Code Discharge Procedure Orders Levetiracetam Level Standing Status: Future Standing Exp. Date: 12/24/20 Order Comments: Send result to PCP, RAFFI Ji and Dr. Middleton, (neurologist). [facility] [id number] [facility] [place] [id number] Schedule an appointment as soon as possible for a visit in 1 week For a recheck. Check keppra level in 1 week before the morning dose. Anastasia Argueta MD [facility] TYSHAWN MATA, [facility] [phone] Schedule an appointment as soon as possible [...] documentation of disc harge summary. Dictation and bookie or software, Instaradio, used which may contain error for similar [...] this note might be different from the [facility] Service: Hospitalist Progress Note Hospital Day: [...] for input(s): IRON, TIBC, PCTSAT, FERRITIN, TSH, [id number], FOLATE in the last 168 hours. Recent [...] Value Units Date/Time Culture, Respiratory, Lower, Smear [[id number]] Collected: 12/22/19 1755 Order Status: Completed Lab [...] CULTURE IN PROGRESS RESULT Testing performed at [facility], [address] [place] [address] Comment: Testing performed at [facility], [address] [place] [address] MRSA NAAT [[id number]] Collected: 12/22/19 1708 Order Status: Completed Lab Status: Final result Updated: 12/22/19 184 Specimen: Tissue from Nares SOURCE: NARES(NOSE) Result NEGATIVE Comment: Testing performed at [facility];[address] [place] [address];[place] [address] Xr Chest Ap Portable Result Date: 12/22/2019 [...] PT OT consulted. Patient's daughter Catarina phone #[phone] updated. Anticipate discharge in 24 to 48 hours Plan discussed with patient. All questions were answered . All data was reviewed. Disposition: Inpatient Code Status: Full Code Erika Myers MD 12/24/2019 7:32 AM This entry has been created using [employer] Speech Recognition software and mobiliThink. The entry has been reviewed and there may still exist sound alike word errors. Ashok Lux ARNP - 12/23/2019 4:38 AM PDTFormatting of this note might be different from the [facility] Service: Manager Bridge Progress Note Steffi Bishop 54 y.o. Hospital Day: LOS: 1 day Post-Op Day: * No surgery found * Consulting Physicians SUBJECTIVE Patient Summary: From Dr Bautista H&P(12/22/2019): "The patient is a 54 y.o. female with significant past medical history of known seizures, depression, alcohol abuse, PTSD, he p C infection, drug abuse, who was found to be seizing. The patient lives on the [facility] and was found by her friend seizing who then called EMS and the family underscore that the patient was found to have another seizure not protecting the airway status continued at [facility] ch point decision was made to [...] this time." ICU Timeline: 12/21: Transfer from [facility] ER intubated on MV. EEG negative for [...] withdrawal. Patient follows up with neurology at [facility]. Received 1 g of Keppra. We will [...] of all other procedures. Ashok G. Joao, BUFFING MACHINE OPERATOR SEMIAUTOMATIC 12/23/2019 Dictation software, Instaradio, was used which may contain error with [...] Bautista MD - 12/22/2019 5:59 PM PDT [facility] Service: Manager Bridge Admission History & Physical Steffi Bishop 54 [...] pins and plate cellulitis unknown left eye Mascotte CHOLECYSTECTOMY HYSTERECTOMY ALLERGIES Allergies Allergen Reactions Aspirin [...] file Gets together: Not on file Attends anabaptism service: Not on file Active member of [...] withdrawal. Patient follows up with neurology at [facility]. Received 1 g of Keppra. We will [...] not appear that patient had any ac shawnee alcoholic hepatitis. Coags also appear to be [...] 12/22/2019 8:57 PM PDTAssociated Order(s): E EG [facility] Neurodiagnostic Dept [address] [place] [address] Patient: Steffi Bishop ID: [id number] : 1965 Age: 54 Gender: female Room #: 53868 Physician: éPrez Paul Buff Wheel Fabricator: Juan J Soriano Ref. 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 Likes to cook. Precautions Precautions/Limitations: seizures, falls [...] Assess/Train, Comment: oral hygiene Grooming, Level of Badger: set up required Assistive Device: none Grooming Assess/Train, Position: sitting Grooming Impairments: impaired balance Lower Body Dressing Assessment/Training LB Dressing Assess/Train, Comment: socks LB Dressing, Level of Badger: supervised, verbal cues required Assistive Device: none LB Dressing Assess/Train, Position: sitting LB Dressing Impairments: impaired balance, ROM decreased, strength decreased Toileting Assessment/Training Toileting Assess/Train, Comment: Pt had a BM at toilet Toileting, Level of Badger: supervised Assistive Device: grab bar Toileting Assess/Train, Position: sitting, standing Toileting Impairments: impaired functional endurance/activity tolerance, impaired balance Bed Mobility Additional Documentation: supine to/from sit Sit to Supine, Level of Badger: independent Transfers Additional Documentation: sit to/from stand, toilet Sit-Stand, Level of Badger: supervised Stand-Sit, Level of Badger: supervised [id number], Assistive Device: none Toilet, Level of Badger: stand by assist Toilet, Assistive Device: none Impairments: impaired balance, strength decreased ROM Testing Results: no range of motion deficits identified Goals Reflects last filed data and may be from multiple contributors. Grooming Goal Most Recent Value LTG Status new at 12/25/2019 0856 LTG Badger Level modified independent at 12/25/2019 0856 LTG Position standing at 12/25/2019 0856 LTG Adaptive Equipment none at 12/25/2019 0856 Ther Exercise Goal Most Recent Value LTG Status new at 12/25/2019 0856 LTG Pt will complete UE therband program with Level 2 theraband for 3 sets of 10 reps with verbal and visual cues. at 12/25/2019 0856 lan of Care - M Isaac Seals, INSPECTOR METAL FABRICATING - 12/25/2019 8:29 AM PDTFormatting of this [...] bouts of gait with increased distance requiring GLASS SETTER f or stability during the first bout however the second bout demonstrated improved stability a nd required no GLASS SETTER. Pt was able to perform balance activites [...] Bed Mobility Supine to Sit, Level of Badger: independent Transfers Sit-Stand, Level of Badger: supervised Stand-Sit, Level of Badger: supervised [id number], Assistive Device: none Impairments: impaired balance Gait Level of Badger: minimal assist (75% patient effort), contact guard assist Assistive Device: none(GLASS SETTER) Distance (feet): 2x150 Additional Documentation: stairs (group) Gait Deviations: limb motion velocity decreased, step length decreased Safety Issues: balance decreased during turns, step length decreased Stairs Number of Stairs: 5 Handrail Location: none Level of Badger: minimal assist (75% patient effort) Assistive Device: none Technique Used: step to step (ascending), step to step (descending) Safety Issues: balance decreased during turns, loses balance backward Impairments: impaired balance Balance Retro Walkinx10 Sidesteppinx10 Goals Reflects last filed data and may be from multiple contributors. All Transfers Goal Most Recent Value LTG Status new at 12/23/2019 1157 LTG Badger Level independent at 12/23/2019 1157 LTG Assistive Device none at 12/23/2019 1157 Gait Goal Most Recent Value LTG Status new at 12/23/2019 1157 LTG Badger Level independent at 12/23/2019 1157 LTG Assistive Device none at 12/23/2019 1157 LTG Distance (feet) 300 at 12/23/2019 1157 Stair Goal Most Recent Value LTG Status new at 12/23/2019 1157 LTG Badger Level modified independent at 12/23/2019 1157 LTG [...] She states she ate half of her Frisian dip sand wich and some of her [...] Intervention: Prevent Seizure-Related Injury Flowsheets (Taken 12/23/2019 4436) Seizure Precautions: activity supervised; clutter-free environment maintained; [...] Contact Information Family Contact Information: Name: Margo Hinson(aunt) Pager: Fax: [place] Needs Assessment Current Outpt/Agency/Support Groups: none Community Agency Name: Anticipated Changes Related to Illness: none Concerns to be Addressed: Services Anticipated at Discharge: education services Equipment Used at Home: none Equipment Needed after Discharge: Durable Medical Equipment Provider: [facility]Medication [facility] Transportation Needs: car Initial Plan Anticipated Discharge Disposition: home with assist Expected DC Date: Steps Taken Toward Discharge: Next Steps: Notes: Met with patient at bedside to discuss discharge plan and needs. Introduced myself a nd explained my role in discharge planning. Pt is still drowsy from seizures. [place] du[place]ter. Pt has a history [...] Device: none Supine to Sit, Level of Badger: independent Sit to Supine, Level of Badger: independent Transfers Additional Documentation: sit to/from stand Stand-Sit, Level of Badger: contact guard assist Vap-Muyiu-Gld, Assistive Device: none Impairments: impaired balance Gait Gait Comments: several LOB w/correction, pt aware of instability & need for assist Level of Badger: minimal assist (75% patient effort) Assistive Device: [...] LTG Status new at 12/23/2019 1157 LTG Badger Level independent at 12/23/2019 1157 LTG Assistive Device none at 12/23/2019 1157 Gait Goal Most Recent Value LTG Status new at 12/23/2019 1157 LTG Badger Level independent at 12/23/2019 1157 LTG Assistive Device none at 12/23/2019 1157 LTG Distance (feet) 300 at 12/23/2019 1157 Stair Goal Most Recent Value LTG Status new at 12/23/2019 1157 LTG Badger Level modified independent at 12/23/2019 1157 LTG Assistive Device 1 rail at 12/23/2019 1157 LTG Number of Stairs 3 at 12/23/2019 1157 Additional Goal #1 PT Most Recent Value LTG Status new at 12/23/2019 1157 LTG Pt will increase Tinetti score to >=23/28 at 12/23/2019 1157 lan of Care - [facility] Adriana mosqueda RN - 12/23/2019 8:50 AM PDT Problem: Skin Injury Risk Increased Goal: Skin Health and Integrity Outcome: Ongoing, progressing Problem: Seizure, Active Management Goal: Absence of Seizure/Seizure-Related Injury Outcome: Ongoing, progressing lan of Gabe Fung MD - 12/23/2019 8:49 AM PDTPatient stable to be [facility] Signout given to Dr. Myers. Neurology consulted. Gabe Bautista MD 8:49 AM 12/23/19 lan of Sally solano, Erika Dodson MD - 12/23/2019 8:41 AM [id number] female with a history of sei zure disorder, depression, alcohol abuse, PTSD, hepatitis C, drug abuse [facility]. Patient was intubated and admitted to the [...] Expected: | | | | e | ([facility]) | 01/01/2020, Expires: | | [...] | >60Comment: GFR <60: | >60 | [facility] | | | GFR | CHRONIC [...] | | | | | | MDRD [facility] traceable | | | | | | equation.Testing | | | | | | performed at [facility], [address] | | | | | | [facility], | | | | | | [place] [address] | | | | + + + + + + + + | Specimen | + + | Blood | + + + + + + + | Performing | Address | City/State/Zipcode | Phone Number | | Organization | | | | + + + + + | [facility] | [address] | [place] [address] | [phone] | + + + + + CBC [...] | | | Absolute | performed at [facility], [address] | K/uL | LABORATORY | | | | [address], | | | | | | [place] [address] | | | | + + + + + + + + | Specimen | + + | Blood | + + + + + + + | Performing | Address | City/State/Zipcode | Phone Number | | Organization | | | | + + + + + | [facility] | [address] | [place] [address] | [phone] | + + + + + Magnesium (12/25/2019 4:26 AM PDT) + + + + + + | Component | Value | Ref Range | Performed | Pathologist | | | | | At | Signature | + + + + + + | Magnesium | 1.8Comment: Testing | 1.7 - 2.4 mg/dL | [facility] | | | | performed at [facility], [address] | | LABORATORY | | | | [address], | | | | | | [place] [address] | | | | + + + + + + + + | Specimen | + + | Blood | + + + + + + + | Performing | Address | City/State/Zipcode | Phone Number | | Organization | | | | + + + + + | [facility] | [address] | [place] [address] | [phone] | + + + + + Magnesium (12/24/2019 5:57 AM PDT) + + + + + + | Component | Value | Ref Range | Performed | Pathologist | | | | | At | Signature | + + + + + + | Magnesium | 2.0Comment: Testing | 1.7 - 2.4 mg/dL | [facility] | | | | performed at [facility], [address] | | LABORATORY | | | | [address], | | | | | | [place] [address] | | | | + + + + + + + + | Specimen | + + | Blood | + + + + + + + | Performing | Address | City/State/Zipcode | Phone Number | | Organization | | | | + + + + + | [facility] | [address] | [place] [address] | [phone] | + + + + + CBC [...] | 9.2Comment: NO NORMAL | fl | [facility] | | | | RANGE ESTABLISHEDTesting | | LABORATORY | | | | performed at [facility], [address] | | | | | [address], | | | | | | [place] [address] | | | | + + + + + + + + | Specimen | + + | Blood | + + + + + + + | Performing | Address | City/State/Zipcode | Phone Number | | Organization | | | | + + + + + | [facility] | [address] | [place] [address] | [phone] | + + + + + Basic [...] | | | | | performed at [facility], [address] | | | | | | [address], | | | | | | [place] [address] | | | | + + + + + + + + | Specimen | + + | Blood | + + + + + + + | Performing | Address | City/State/Zipcode | Phone Number | | Organization | | | | + + + + + | [facility] | [address] | [place] [address] | [phone] | + + + + + Potassium (12/23/2019 6:05 PM PDT) + + + + + + | Component | Value | Ref Range | Performed | Pathologist | | | | | At | Signature | + + + + + + | K | 3.7Comment: Testing | 3.5 - 4.9 | [facility] | | | | performed at [facility];[address] | mmol/L | LABORATORY | | | | [address];[place], [place] | | | | | | [address] | | | | + + + + + + + + | Specimen | + + | Blood | + + + + + + + | Performing | Address | City/State/Zipcode | Phone Number | | Organization | | | | + + + + + | [facility] | [address] | [place] [address] | [phone] | + + + + + Phosphorus (12/23/2019 4:37 AM PDT) + + + + + + | Component | Value | Ref Range | Performed | Pathologist | | | | | At | Signature | + + + + + + | Phosphorus | 2.4Comment: Testing | 2.3 - 4.8 mg/dL | [facility] | | | | performed at [facility];[address] | | LABORATORY | | | | [address];[place] | | | | | | [address] | | | | + + + + + + + + | Specimen | + + | Blood | + + + + + + + | Performing | Address | City/State/Zipcode | Phone Number | | Organization | | | | + + + + + | [facility] | [address] | [place] [address] | [phone] | + + + + + Magnesium (12/23/2019 4:37 AM PDT) + + + + + + | Component | Value | Ref Range | Performed | Pathologist | | | | | At | Signature | + + + + + + | Magnesium | 2.2Comment: Testing | 1.7 - 2.4 mg/dL | [facility] | | | | performed at [facility];[address] | | LABORATORY | | | | [address];[place] | | | | | | [address] | | | | + + + + + + + + | Specimen | + + | Blood | + + + + + + + | Performing | Address | City/State/Zipcode | Phone Number | | Organization | | | | + + + + + | [facility] | [address] | [place] [address] | [phone] | + + + + + CBC [...] | | | | | performed at [facility];[address] | | | | | | [address];[place], [place] | | | | | | [address] | | | | + + + + + + + + | Specimen | + + | Blood | + + + + + + + | Performing | Address | City/State/Zipcode | Phone Number | | Organization | | | | + + + + + | [facility] | [address] | [place] [address] | [phone] | + + + + + Basic [...] | >60Comment: GFR <60: | >60 | [facility] | | | GFR | CHRONIC [...] | | | | | performed at [facility];[address] | | | | | | [facility];[place], [place] | | | | | | [address] | | | | + + + + + + + + | Specimen | + + | Blood | + + + + + + + | Performing | Address | City/State/Zipcode | Phone Number | | Organization | | | | + + + + + | [facility] | [address] | [place] [address] | [phone] | + + + + + Blood [...] | | | Arterial, | performed at [facility];[address] | | LABORATORY | | | POC | [address];[place] | | | | | | [address] | | | | + + + + + + + + | Specimen | + + | | + + + + + + + | Performing | Address | City/State/Zipcode | Phone Number | | Organization | | | | + + + + + | [facility] | [address] | [place] [address] | [phone] | + + + + + POC [...] | | | POC | performed at [facility];[address] | | LABORATORY | | | | [address];[place], [place] | | | | | | [address] | | | | + + + + + + + + | Specimen | + + | | + + + + + + + | Performing | Address | City/State/Zipcode | Phone Number | | Organization | | | | + + + + + | [facility] | [address] | [place] [address] | [phone] | + + + + + EEG (12/22/2019 8:57 PM PDT) + + + | Narrative | Performed At | + + + | Juan J Soriano, Neurodiagnostic Tech 12/22/2019 8:58 PM | | | [facility] Neurodiagnostic Dept [address] [facility] | | | [place] [address] Patient: Steffi Bishop ID: [id number] | | | : 1965 Age: 54 Gender: female Room #: [id number] | | | Physician: Pérez Paul Buff Wheel Fabricator: Juan J Soriano Ref. | | | [...] be seizing. The patient lives on the [facility] and | | | was found by [...] [facility] | | | | performed at [facility];[address] | | LABORATORY | | | | [address];[place] | | | | | | [address] | | | | + + + + + + + + | Specimen | + + | Blood | + + + + + + + | Performing | Address | City/State/Zipcode | Phone Number | | Organization | | | | + + + + + | [facility] | [address] | [place] [address] | [phone] | + + + + + Lactic Acid (12/22/2019 6:23 PM PDT) + + + + + + | Component | Value | Ref Range | Performed | Pathologist | | | | | At | Signature | + + + + + + | Lactate, | 0.9Comment: Testing | 0.4 - 2.0 | [facility] | | | Serum | performed at [facility];[address] | mmol/L | LABORATORY | | | | [address];[place], [place] | | | | | | [address] | | | | + + + + + + + + | Specimen | + + | Blood | + + + + + + + | Performing | Address | City/State/Zipcode | Phone Number | | Organization | | | | + + + + + | [facility] | [address] | [place] [address] | [phone] | + + + + + XR [...] Endotracheal tube terminates 4.2 cm above the ócsar. Enteric tube tip | | and side [...] | | | Absolute | performed at [facility];[address] | K/uL | LABORATORY | | | | [address];[place], [place] | | | | | | [address] | | | | + + + + + + + + | Specimen | + + | Blood | + + + + + + + | Performing | Address | City/State/Zipcode | Phone Number | | Organization | | | | + + + + + | [facility] | [address] | [place] [address] | [phone] | + + + + + Comprehensive [...] 19 | 10 - 65 U/L | [facility] | | | | | | LABORATORY | | + + + + + + | Estimated | >60Comment: GFR <60: | >60 | [facility] | | | GFR | CHRONIC [...] | | | | | performed at [facility] | | | | | | [facility];[place], [place] | | | | | | [address] | | | | + + + + + + + + | Specimen | + + | Blood | + + + + + + + | Performing | Address | City/State/Zipcode | Phone Number | | Organization | | | | + + + + + | [facility] | [address] | [place] [address] | [phone] | + + + + + Culture, [...] RESULT | Testing performed at | | [facility] | | | | [facility], [address] [facility] | | LABORATORY | | | | [place], [place], [place] | | | | | | [id number]: Testing | | | | | | performed at [facility], [address] | | | | | | [facility], | | | | | | [place] [address] | | | | + + + [...] [facility] | [address] | [place] [address] | [phone] | + + + + + MRSA [...] V[facility] | | | | performed at [facility];[address] | | LABORATORY | | | | [address];[place] | | | | | | [address] | | | | + + + [...] | [address] | [place] [address] | [phone] | + + + + + POC [...] | | | POC | performed at [facility];[address] | | LABORATORY | | | | [address];[place], [place] | | | | | | [address] | | | | + + + + + + + + | Specimen | + + | | + + + + + + + | Performing | Address | City/State/Zipcode | Phone Number | | Organization | | | | + + + + + | [facility] | [address] | [place] [address] | [phone] | + + + + + documented [...]
--- OUTSIDE RECORDS SUMMARY | ~2020-05-21 | XMS | Encounter Summary ---
Demographics + + + | Address | [address] [place] [place] [address] | | | [place] [address] | + + + | Home Phone | | + + + | Preferred Language | Unknown | + + + | Marital Status | Single | + + + | Zoroastrian Affiliation | 1041 | + + + [...] Team Providers + +------+ + | Care Braided Rug Maker Name | Role | Phone | + [...] + + | 09/26/ | Telephone | [facility] | Mickey | Patricia (Documentation | | 2020 | | NEUROLOGY [address] | ELIO Stack | ) | | | | [place] [address] | | | | | | [place] | | | | | | [address] | | | | | | [phone] | | | +--------+ + + + [...] request. Omeprazole (PRILOSEC) 20 mg TBEC. Fax: [phone]. Fax went through. Telephone Encounter - Seda Arevalo CMA - 09/26/2019 1:47 PM PSTFaxed Rx scripts by Flakito Argueta's request. Indomethacin (INDOCIN) 25 MG cap Phenytoin ( DILANTIN) 100 mg ER cap [facility]. Fax: [phone]. Fax went through. TTelephone Encounter - Seda Arevalo CMA - 09/26/2019 12:49 PM PSTPrinted Lab orders f or patient. She wanted to have labs drawn at [facility] rather then [facility]. Electronically sign ed by Seda Arevalo CMA at 09/26/2019 12:50 PM PSTdocumented in this encounter Plan of Treatment Not on filedocumented as of this encounter Visit Diagnoses Not on filedocumented in this encounter"
--- OUTSIDE RECORDS SUMMARY | ~2020-05-21 | XMS | Encounter Summary ---
Demographics + + + | Address | [address] [place] [address] | | | [place] [address] | + + + | Home Phone [...] Author + + + | Author | [facility] | | | and [place] | + + + | Organization | [facility] | | [...] Team Providers + +------+ + | Care Die Try Out Worker Name | Role | Phone | + +------+ + | Anat Pickett | PCP | | + +------+ + Reason for Visit + +--------+ + | Reason | Onset | Comments | | | Date | | + +--------+ + | Lab Results | 01/09/ | | | | 2020 | | + +--------+ + Encounter Details +--------+ + + + + | Date | Type | Department | Care Team | Description | +--------+ + + + + | 01/09/ | Telephone | [facility] | Keenan Holland, | Lab Results | | 2019 | | NEUROLOGY [address] | Worship Director | | | | | [address] | | | | | | [place], [place] | | | | | | [address] | | | | | | [phone] | | | +--------+ + + + [...] Miscellaneous Notes Telephone Encounter - Keenan Holland, Worship Director - 01/11/2020 11:33 AM PDTI do not, thank you. I have printed labs and sent to [facility]. I also sent prescriptions to [facility] as well. Thank you ! :)Electronically signed by Keenan Holland Worship Director at 03/2020 11:33 AM PDTTelephone Encounter - Anastasia Argueta MD - 01/11/2020 11:15 AM PDTLet m e know if u need order, it should be in system , if not let me know. Thanks mannava elephone Enco pooja - Keenan Holland, Worship Director - 01/11/2020 11:06 AM PDTCalled Steffi back, she st ated yes she got blood work done at [facility] but doesn't know if that was recent or A little while ago. She states she is sorry she is very forgetful and she doesn't think she got recent lab work done but will. I let her know if was ok and thank you. Will send her lab order to [facility] so she can get them done. elephone Encounter - Anastasia Argueta MD - 01/11/2020 10:00 AM PDTCan u call and check with her where she did lab work. She was asking me if we got results first thing yesterday, so she did them, we have to find where. Thanks mannava elephone Vonda Lacy - 01/10/2020 2:05 PM PDTLori, is returning call for Lab Results and would like a call back. Additional Call Details: [facility] labs received fax, however the patient has not done th e labs requested at their clinic elephone Encounter - Keenan Harley, Worship Director - 01/10/2020 12:39 PM PDTRequested Lab results from [facility]. docu mented in this encounter Plan of Treatment Not on filedocumented as of this encounter Visit Diagnoses Not on filedocumented in this encounter"
--- OUTSIDE RECORDS SUMMARY | ~2020-05-21 | XMS | Encounter Summary ---
Demographics + + + | Address | [address] [place] [address] | | | [place] [address] | + + + | Home Phone | | + + + | Preferred Language | Unknown | + + + | Marital Status | Single | + + + | Shinto Affiliation | 1041 | + + + [...] Team Providers + +------+ + | Care Sap Security Architect Name | Role | Phone | + +------+ + | Anat Pickett | PCP | | + +------+ + Reason for Visit +--------+--------+ + | Reason | Onset | Comments | | | Date | | +--------+--------+ + | Other | 12/03/ | speak with certified medical records coder | | | 2020 | | +--------+--------+ + Encounter Details +--------+ + + + + | Date | Type | Department | Care Team | Description | +--------+ + + + + | 12/03/ | Telephone | [facility] | Anastasia Argueta, | Other (speak with | | 2020 | | NEUROLOGY [address] | MD Alexander JAMES | certified medical records coder ) | | | | [place] | [place], [place] | | | | | [place], [place] | [address] | | | | | [address] | [phone] | | | | | [phone] | | | +--------+ + + + [...] Telephone Encounter - Anastasia Argueta MD - 12/04/2019 11:42 AM PDTWill do telephone visit. Thanks Ellie elephone Yenny patton - Mckay Loyd - 12/04/2019 10:27 AM PDTJule, is calling regarding Other (speak with certified medical records coder ) and would like a call back. Additional Call Details: Patient stated she had 4 seizures last night 12.03.19. Call sherice andrew back to discuss further details at [phone]. If this is a symptom based call, was patient offered triage? Not Applicable If this is a symptom based call and you were unable to immediately transfer the call to a theodora flores reporting coordinator was caller made aware that if at any time she feels it is an emergency they sh ould call 911 or go to the nearest emergency room? not applicable documented in this encounter Plan of Treatment Not on filedocumented as of this encounter Visit Diagnoses Not on filedocumented in this encounter"
--- OUTSIDE RECORDS SUMMARY | ~2020-05-21 | XMS | Encounter Summary ---
Demographics + + + | Address | [address] [place] [address] | | | [place] [address] | + + + | Home Phone [...] Team Providers + +------+ + | Care Engineering Faculty Member Name | Role | Phone | + [...] Provider Unknown | | | | | [place], [place] | [phone] | | | | | [address] | | | | | | [phone] | | | +--------+ + + + [...]
--- OUTSIDE RECORDS SUMMARY | ~2020-05-21 | XMS | Encounter Summary ---
Demographics + + + | Address | [address] [place] [address] | | | [place] [address] | + + + | Home Phone [...] + + + | Author | [facility] | | | and [place] | + + + | Organization | [facility] | | | [...] Team Providers + +------+ + | Care Truck Crane Operator Name | Role | Phone | [...] + + | 09/22/ | Telephone | [facility] | Keenan Holland, | Appointment | | 2019 | | NEUROLOGY [address] | [address] Builder | | | | | [place] | | | | | | [place], [place] | | | | | | [address] | | | | | | [phone] | | | +--------+ + + + [...] Miscellaneous Notes Telephone Encounter - Keenan Holland, Road Builder - 09/22/2019 12:30 PM PST#2 Call- L eft message for pt to call us back to confirm. documented in this encounter Plan of Treatment Not on filedocumented as of this encounter Visit Diagnoses Not on filedocumented in this encounter"
--- OUTSIDE RECORDS SUMMARY | ~2020-05-21 | XMS | Encounter Summary ---
Demographics + + + | Address | [address] [place] [address] | | | [place] [address] | + + + | Home Phone | | + + + | Preferred Language | Unknown | + + + | Marital Status | Single | + + + | Confucianist Affiliation | 1041 | + + + [...] Team Providers + +------+ + | Care Lorry Weigher Name | Role | Phone | + +------+ + PCP | Unavailable | + +------+ + Encounter Details +--------+ + + + + | Date | Type | Department | Care Team | Description | +--------+ + + + + | 09/01/ | Hospital | [facility] | Nivia Liriano Julia, | Tox Eff Nonmed Subst | | 2009 - | Encounter | [facility]ENTER | MD Nadine CHRISTIE | | | | | CLINICAL DECISION | [place], | | | 05/09/ | | [address] | [place] [address] | | | 2008 | | [place], [place] | [phone] | | | | | [address] | | | | | | [phone] | Eleanor Young, | | | | | | [address] | | | | | | [place] [address] | | | | | | [phone] | | | | | | | [...] Performed At | + + + | [id number] | | | Page 1 RADIOLOGY | | | [facility] / | | | I/P [facility] | | | CENTER NAME: [place] [address] | | | | | | | | | DATE OF : 1965 ORDER NUMBER: [id number] | | | EXAM DATE/TIME: 05/08/2009 05:00 [...] | | | 05/08/2009 07:39 A A [facility]/kenneth/[id number]/ | | | cc: MD TONE PADRON DO | | | MD JASON DE LA ROSA MD | | | ERIN WATKINS MD | | + + + + + | Procedure Note | + + | Maximus Bass - 05/01/2019 5:22 AM PDT | | [id number] Page 1 | | RADIOLOGY [facility] / | | I/P | | [facility] NAME: SATHYA CUETO | | [place] [address] | | | | DATE OF : 1965 | | | | ORDER NUMBER: [id number] | | EXAM DATE/TIME: 05/08/2009 05:00 A [...] | A | | A | | [facility]//[id number]/ | | cc: CHIN RESTREPO MD | | TONE ELLISON DO | | ELEANOR YOUNG MD | | JASON COX MD | | ERIN WATKINS MD | + + XR Chest 1 Vw (05/07/2009 2:00 AM PDT) + + | Specimen | + + | | + + + + + | Narrative | Performed At | + + + | [id number] | | | Page 1 RADIOLOGY | | | [facility] / | | | I/P [facility] | | | C[place] [address] | | | | | | | | | DATE OF : 1965 ORDER NUMBER: [id number] | | | EXAM DATE/TIME: 05/07/2009 01:03 [...] DT: | | | 05/07/2009 02:54 P [facility]/[id number]/ cc: TONE ELLISON DO | | | MD ERIN DE LA ROSA MD | | + + + + + | Procedure Note | + + | Maximus Bass - 05/01/2019 5:22 AM PDT | | [id number] Page 1 | | RADIOLOGY [facility] / | | I/P | | [facility] NAME: SATHYA CUETO | | [place] [address] | | | | DATE OF : 1965 | | | | ORDER NUMBER: [id number] | | EXAM DATE/TIME: 05/07/2009 01:03 A [...] | A | | P | | [facility]/[id number]/ | | cc: TONE ELLISON DO | [...]
--- OUTSIDE RECORDS SUMMARY | ~2020-05-21 | XMS | Encounter Summary ---
Demographics + + + | Address | [address] [place] [address] | | | [place] [address] | + + + | Home Phone [...] Author + + + | Author | [facility] | | | and [place] | + + + | Organization | [facility] | | | [...] Team Providers + +------+ + | Care Airline Operations Agent Name | Role | Phone | + [...] + + | 10/02/ | Telephone | [facility] | Anastasia Argueta, | Medication Question | | 2019 | | NEUROLOGY [address] | MD Alexander JAMES | | | | | [address] | [place], [place] | | | | | [place], [place] | [address] | | | | | [address] | [phone] | | | | | [phone] | | | +--------+ + + + [...] Miscellaneous Notes Telephone Encounter - Keenan Holland, Appeals Rn - 10/03/2019 12:19 PM PSTI tried sera [...] transfer the call to a theodora flores employment supervisor was caller made aware that if at any time she feels it is an emergency they sh ou call 911 or go to the nearest emergency room? not applicable documented in this encounter Plan of Treatment Not on filedocumented as of this encounter Visit Diagnoses Not on filedocumented in this encounter"
--- OUTSIDE RECORDS SUMMARY | ~2020-05-21 | XMS | Encounter Summary ---
Demographics + + + | Address | [address] [place] [address] | | | [place] HANK[place] [address] | + + + | Home Phone [...] Author + + + | Author | [facility] | | | and [place] | + + + | Organization | [facility] | | | [...] Team Providers + +------+ + | Care Precision Assembler Name | Role | Phone | [...] [address] | | | | | | ([facility]) | BLVD | | | | | | | [place], [place] | | | | | | | [address] | | | | | | | Phone: | | | | | | | [phone] | | | | | | | Fax: | | | | | | | [phone] | | + + + + + [...] + + | 06/22/ | Hospital | [facility] | Cary Chapa DO | Status epilepticus | | 2019 - | Encounter | [facility] | [address] | ([facility]); Generalized | | | | [address] | [place] [address] | tonic-clonic seizure | | 07/03/ | | [place], [place] | [phone] | ([facility]); H/O ETOH | | 2018 | | [address] | | abuse; Polysubstance | | | | [phone] | Deepak Stanton MD | abuse ([facility]); | | | | | [address] | Methamphetamine | | | | | [place] [address] | intoxication ([facility]); | | | | | [phone] | 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[facility]); | | | | | | Post-ictal state | | | | | Beto Kothari MD [address] | ([facility]); Altered | | | | | [address] | mental status, | | | | | [place] [address] | unspecified altered | | | | | [phone] | mental status type; | | | | | | Seng coma scale | | | | | Freddy Gastelum MD | total score 3-8, at | | | | | [address] | hospital admission | | | | | [address] | ([facility]); Hypotension, | | | | | [address] | unspecified | | | | | [...] coursing through the mediastinum below the acquired uwpxq-ep-gxcl into the upper abdomen. Overlying EKG leads [...] and drug abusewho presents withstatus epilepticus. [facility] were [facility]fi led and patient was [...] Procedure Component Value Units Date/Time Culture, Blood [[id number]] Collected: 06/27/19 170 Order Status: Completed Lab Status: Preliminary result Updated: 06/29/19726 Specimen: Peripheral Blood Special Requests R.AC Special Requests Testing performed at [facility];[address] [place] [address] RESULT NO GROWTH 2 DAYS RESULT Testing performed at [facility], [address] [place] [address] Comment: Testing performed at [facility], [address] [place] [address] Culture, Blood [[id number]] Collected: 06/27/19 165 Order Status: Completed Lab Status: Preliminary result Updated: 06/29/19726 Specimen: Peripheral Blood Special Requests L.AC Special Requests Testing performed at [facility];[address] [place] [address] RESULT NO GROWTH 2 DAYS RESULT Testing performed at [facility], [address] [place] [address] Comment: Testing performed at [facility], [address] [place] [address] [place] [facility] Condition: Stable Code Status: Full Code Discharge Procedure Orders Referral to Home Health Referral Priority: Routine Referral Type: Evaluate & Treat Referral Reason: Specialty Services Required Requested Specialty: Home Health Services Number of Visits Requested: 1 Follow up: [place] [address] [place] [address] Follow up on 07/04 at 1 PM. [facility] [address], [place] [address] Main Schedule an appointment as soon as possible for a visit intake Jimdo. [employer] [place] [facility] [address], [place] [address] Main Go on 07/20/2019 intake; Please arrive at 8:30 a.m. to complete paperwork. Appointment will begin at 9:00 a. m. [place] [address] [place] [id number] Schedule an appointment as soon as possible for a visit in 1 week [facility] [address] [phone] Discharge Medications New Medications Details midodrine 10 [...] and ask for a referral to an transportation specialist for a n evaluation. Look in [...] one of these national groups: ? National [place] on Alcoholism and Drug Dependence 334-628-3683 ? National Drug and Alcohol Treatment Referral Service 591-919-VSUZ ([phone]) Date Last Reviewed: 10/07/201619996022-[address] [employer] [place] [address], [place] [address]. All righ ts reserved. This information is [...] more often than directed. Talk to your fuel pilot engineer regarding the use of this medicine in children. While this medici ne may be prescribed for selected conditions, precautions do apply. What side effects may I notice from receiving this medicine? Side effects that you should report to your doctor or health medicare biller as soon as p ossible: allergic reactions like skin rash, itching or hives, swelling of the face, lips, or tong ue chest tightness fast, irregular heartbeat irritable, restless nausea, vomiting sweating unusually bleeding or bruising Side effects that usually do not require medical attention (report to your doctor or health medicare biller if they continue or are bothersome): sneezing [...] pharmacist, or health care provider. Copyright 2019 [employer] Phenytoin Does this test have other names? [...] Before taking a new prescription or an hpdp-oxh-fld nter medicine, it's best to check about [...] and any illicit drugs you may use. 6418-1690 [employer]. [address] [place] [address]. All righ ts reserved. This information is not intended as a substitute for professional medical care. Always follow your healthcare professional's instructions. Midodrine tablets Brand Names: Orvaten, ProAmatine What is this medicine? MIDODRINE ([place] sloan dreen) is used to treat low [...] on your doctor's advice. Talk to your fuel pilot engineer regarding the use of this medicine in children. Special care may be needed. What side effects may I notice from receiving this medicine? Side effects that you should report to your doctor or health medicare biller as soon as p ossible: awareness of heart beating blurred vision headache irregular heartbeat, palpitations, or chest pain pounding in the ears skin rash, hives Side effects that usually do not require medical attention (report to your doctor or health medicare biller if they continue or are bothersome): change [...] this medicine? Visit your doctor or health medicare biller for regular checks on your progress. You [...] medicine without asking your doctor or health medicare biller for advice. Some ingredients may increase yo ur blood pressure. NOTE:This sheet is a summary. It may not cover all possible information. If you have questi ons about this medicine, talk to your doctor, pharmacist, or health care provider. Copyright 2019 [employer] documented in this encounter Medications at Time [...] note might be different from sofi borden. [facility] Service:hospitalist Progress Note Hospital Day: LOS: 10 days SUBJECTIVE Patient Summary: refer to H&P and consult note for details Per ICU 53 y.o.femalewith significant past medical history of PTSD, depression, alcohol abuse, at least one seizure (is listed as the reaction to aspirin in her allergies), hepatitis C vi ral infection and drug abusewho presents withstatus epilepticus. [facility] were [facility]fi led and patient was [...] coursing through the mediastinum below the acquired xtwjy-le-zxdn into the upper abdomen. Overlying EKG leads [...] Disposition: Admitted Code Status: Full Code Beto Kothrai MD 07/02/2019 ujose, Baudilio Villarreal RN - [...] Beto Bermeo MD - 9:27 AM PDT [facility] Service:hospitalist Progress Note Hospital Day: LOS: 9 days SUBJECTIVE Patient Summary: refer to H&P and consult note for details Per ICU 53 y.o.femalewith significant past medical history of PTSD, depression, alcohol abuse, at least one seizure (is listed as the reaction to aspirin in her allergies), hepatitis C vi ral infection and drug abusewho presents withstatus epilepticus. [facility] were [facility]fi led and patient was [...] coursing through the mediastinum below the acquired fmyka-co-ocal into the upper abdomen. Overlying EKG leads [...] fascicular block) is now Present Confirmed by Mxa Baxter MD ([id number]) on 06/26/2019 7:14:20 PM [...] recently she came to the hospital at [facility]. CT scan was done over there that [...] healing. Well supported by ruben sweeney in [place]. Machine Clothing Worker provided compassionate, non-judgmental presence, affirmed and e ncouraged expression of emotion, explored the link between her shame and her relationship wi th God, facilitated discussion regarding suffering, Divine trung, and self-compassion, refra med her pain into a source of compassion for the world, provided a Bible per request, and of fered prayer which was accepted. Patient expressed appreciation for driver messenger visit and state d that a light of hope was sparked in her soul. Carla Fletcher RN - 06/30/2019 4:07 AM PDTVSS throughout shif t. MAP >65. CIWA neg. Pt ambulating to bathroom and c/o no pain. Hourly rounding unevent ful. Chart check complete. Carla Shaver RN Beto Bermeo MD - 2018 8:32 AM PDT [facility] Service:hospitalist Progress Note Hospital Day: LOS: 7 days SUBJECTIVE Patient Summary: refer to H&P and consult note for details Per ICU 53 y.o.femalewith significant past medical history of PTSD, depression, alcohol abuse, at least one seizure (is listed as the reaction to aspirin in her allergies), hepatitis C vi ral infection and drug abusewho presents withstatus epilepticus. [facility] were [facility]fi led and patient was [...] coursing through the mediastinum below the acquired bgpkk-em-absy into the upper abdomen. Overlying EKG leads [...] recently she came to the hospital at [facility]. CT scan was done over there that [...] Esequiel Higginbotham N - 06/28/2019 9:46 PM [id number]: Notified Dr. Campo of potassium of 3.5, per the protocol if pt needs another replacement, notify provider. Dr. Campo ok with giving the recommended 40 mEq of oral potassium. VSS throughout shift. Pt's MAP remained >65. Hourly rounding uneventful. Chart check complete. Carla Shaver RN bleFreddy pabon MD - 1 2:54 PM PDT [facility] Adult Hospitalist Progress Note Hospital Day: 6 Patient Summary: Briefly, 53-year-old female with extensive past medical history most significant for PTSD, depression, active alcohol abuse, active drug abuse, hepatitis C and other chronic comorbid ities who presented to [facility] ER unresponsive with generalized [...] Bermeo MD - 06/27/2019 9:31 AM PDT [facility] Service:hospitalist Progress Note Hospital Day: LOS: 5 days SUBJECTIVE Patient Summary: refer to H&P and consult note for details Per ICU 53 y.o.femalewith significant past medical history of PTSD, depression, alcohol abuse, at least one seizure (is listed as the reaction to aspirin in her allergies), hepatitis C vi ral infection and drug abusewho presents withstatus epilepticus. [facility] were [facility]fi [facility] and patient was [...] coursing through the mediastinum below the acquired tctkh-tv-xbvg into the upper abdomen. Overlying EKG leads [...] recently she came to the hospital at [facility]. CT scan was done over there that [...] and drug abusewho presents withstatus epilepticus. [facility] were rafi led and patient was [...] Lab 06/23/19 0422 PHART 7.313* PO2ART 120* [id number] 46* [id number] 98 Diagnostic Imaging: Impressions only: Recent Results [...] ently she came to the hospital at [facility]. CT scan was done over there that [...] this chart may have been created with [employer] voice recognition software. Occasi onal wrong-word or [...] Mehreen Hayward RN - 06/25/2019 6:54 PM [id number]: pt arrived on unit. MAP 61; 500ml NS bolus given; MAP currently 64. Patient passed swallow eval. Patient has be en sleepy, no seizures. End of shift chart check done. nAastasia Livingston MD - 06/25/2019 10:26 AM PDTFormatting of this note might be dif ferent from the original. [facility] Service: Neurology PROGRESS NOTE Subjective: Patient [...] your patient care. Please call us with [employer]. I will be signing off on patient as today is last day of my call. Please reach out to neurologist location analyst starting tomorrow for any additional concerns. If brain imaging is obta ined, please reach out to me to discuss results if needed. ana Emerson ARN P - 06/25/2019 7:32 AM PDT [facility] Service: Technician Progress Note Steffi Bishop 53 y.o. Hospital [...] abuse who presents with status epilepticus. The [facility] were called and patient [...] at [facility] was negative. ? Neurology (Dr. Argueta) is following. CT imaging obtained per Neurology recommendations. ? AED management per Neurology. Discontinued keppra per Neurology recommendations. Will nee d phenytoin 300 mg ER daily on discharge. Alcohol abuse: unknown when she last drank, but family reports heavy daily drinking. ? CIWA protocol with prn Ativan. ? Thiamine, folic acid supplementation daily. Polysubstance abuse: counseling psychologist on cessation. CV: Hypotension, requiring Levophed to [...] at [facility] facility prior to transfer: NGTD HEME: No [...] Percent change: 17.6% Pt IS fluid responsive. Technician notified. Anastasia Livingston MD - 06/24/2019 9:30 AM PDTFormatting of this no te might be different from the original. [facility] Service: Neurology PROGRESS NOTE Subjective: Subjective: [...] your patient care. Please call us with [employer] ns. Bryan Recinos MD - 06/24/2019 8:30 AM [facility] Service: Continuous EEG Monitoring Progress Note [...] questions or concerns. Bryan Celis MD [facility] Clinical Neurophysiologist llis, Cary irene, ALUM MIXER - 06/24/2019 7:08 AM PDTFormatting of this note might be different from the [facility] Service: Technician Progress Note Steffi Bishop 53 y.o. Hospital [...] presents with status epilepticus. The [facility] were called and patient [...] at [facility] was negative. ? Cont Keppra and fosphenytoin, [...] Shaquille Recinos MD - 06/23/2019 9:53 AM [facility] Service: Continuous EEG Monitoring Progress Note [...] questions or concerns. Bryan Celis MD [facility] Clinical Neurophysiologist documented in th is encounter H&P Notes Cary Chapa, DO - 06/23/2019 12:16 AM PDTFormatting of this note might be different from t david original. [facility] Service: Technician Admission History & Physical Steffi Bishop 53 y.o. Date of Admission: 06/22/2019 Requesting Physician: Dr. Sanford, Emergency Department at [facility] Indication for ICU Admission: status epilepticus History [...] abuse who presents with status epilepticus. The [facility] were called and patient was found [...] is an abnormal continuous EEG representing a junv-ae-desjfyyv encephalopathy. Diffuse beta activity is nonspecific but [...] suggested if indicated. Bryan Celis MD [facility] Clinical Neurophysiologist Cary Arnold ARNP - 06/23/2019 6:07 PM PDTFormatting of this note might be different from the orig inal. [facility] Service: Technician BEDSIDE PROCEDURE NOTE Patient: (Age): MRN: Admit: Length of stay in days: Steffi Bishop 1965 (53 y.o.) [id number] 06/22/2019 1 ICU Left internal jugular vein Triple Lumen Catheter Procedure Time out was called: 17:30 Date and time of procedure: 06/23/2019 at 17:35 Indication: vascular access and centrally administered medications Consent: Risks, benefits, and alternatives were discussed with the patient and/or the [facility] regarding this procedure. Major risks include [...] e might be different from the original. [facility] Neurodiagnostic Dept [address] [place] [address] Patient: Steffi Bishop ID: [id number] : 1965 Age: 53 Gender: female Room #: 37053 Physician: Anastasia Argueta Ash Worker: Jeana Goldstein Ref. Physician: Cary Chapa Recording Date: 06/23/2019 Duration: 00:31:48 Report Date: 06/23/2019 2:20 AM Medications: Ativan, Keppra 2000mg loaded in ER at [place], fentanyl, no sedation History: Patient found down [...] finding s were immediately notified to the location analyst provider, Dr. Holland. docume nted in this [...] through the use of telemedicine. Telemedicine enables [facility] care providers at different locations to [...] for years. 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 PMH: Past Medical History: Diagnosis Date Alcohol abuse Depression Drug abuse (HCC) methamphetamine and MDMA Generalized tonic-clonic seizure (HCC) 06/22/2019 PTSD (post-traumatic stress disorder) Status epilepticus ([facility]) 06/22/2019 Social History Socioeconomic History Marital [...] Delacruz DO - 06/26/2019 5:39 AM PDT [facility] Service: Technician Follow up consult note Steffi Bishop 53 [...] abuse who presents with status epilepticus. The [facility] were called and patient [...] at [facility] was negative. ? Neurology (Dr. Argueta) is [...] showed normal EF. Will h ave daytime manager editorial team review CXR. GI/NUTRITION: General diet. No active issues. RENAL/LYTES: No acute issues. Monitor BMP. ID: No evidence of infection. Blood cultures were drawn at [facility] prior to transfer d/t fever in ED [...] on dopamine infusion. Please call t he manager editorial team if she has worsening BP or [...] Chapa MD Reason for consult: seizures Assessment/Recommendations: [facility] Service: Neurology Date of Admission: 06/21/19 [...] tonic-clonic seizure witness ed by bystanders and [facility] was called. Unclear details regarding the [...] mg Ativan [facility] Patient per nursing report this morning did not have any further clinical seizure activity after being transferred to the ICU. However a stat routine EEG obtained overnight, read by me showed electrographic generalized status epilepticus with four seizures captured on the r ecording back to back. ICU manager editorial was reported about these findings immediately and [...] finding s were immediately notified to the location analyst provider, Dr. Holland. CEEG: Formal report pending [...] to/from sit Supine to Sit, Level of [place]: independent Transfers Additional Documentation: sit to/from stand Sit-Stand, Level of [place]: independent Gait Gait Comments: WNL Level of [place]: minimal assist (75% patient effort), moderate assist [...] All Transfers Goal Most Recent Value LTG [place] Level modified independent at 06/25/2019 1300 Gait Goal Most Recent Value LTG [place] Level modified independent at 06/25/2019 1300 LTG Assistive Device 2 wheeled walker (FWW) at 06/25/2019 1300 LTG Distance (feet) 150 at 06/25/2019 1300 lan of Humberto adore Enrique eNil, INTERNET CAFE MANAGER - 07/03/2019 2:04 PM PDTCare Management Follow-Up Readmission Risk: Medium Current Discharge Plan Anticipated Discharge Disposition: Home Expected DC Date: 07/03/2019 Barriers to Discharge: Pt was denied SNF by her insurance - [employer] [place] [employer] - they re sponded that Pt is appropriate to go home. Steps Taken Toward Discharge: INTERNET CAFE MANAGER notified Brandon DOUGLAS and Dr. Kothari. INTERNET CAFE MANAGER attempted to notify Pt, was in shower. INTERNET CAFE MANAGER p/c left msg with Pt jess ([place] [phone]) for call back. INTERNET CAFE MANAGER p/c with Carla at [facility], states they are agreeable to following up with PT after discharge, covers the [facility] now. Next Steps: Home with Pt migdaliar ([place]) - Pt dghtr will transport. Follow up with Chemical Dependency and Counseling appointment. Follow up with PCP at [facility]. INTERNET CAFE MANAGER met with Pt regarding final discharge, refused home health PT, states she wants to foll ow up with her PCP. INTERNET CAFE MANAGER notified Carla with [facility] regarding Pt does not want Home health se rvices. Notifed Carla with decline letter. Discharge Transportation Transportation Needs: Pt dghtr ([place] [phone]) Electronically signed: KUNAL CLANCY 07/03/2019 14:04 lan [...] RN Outcome: Ongoing, progressing 07/01/20192002 by Ivory Brenann RN Outcome: Ongoing, progressing Flowsheets (Taken 07/01/20192002) [...] Medium Current Discharge Plan Anticipated Discharge Disposition: Senior Living Facility Expected DC Date: 06/30/2019 Barriers to Discharge: Pt dghtr encouraging Pt to go to [facility]. Steps Taken Toward Discharge: Elliot at [facility] has medically accepted Pt, unf ortunately insurance authorization has to get done via [facility] office in [facility] this will happen on Wednesday. INTERNET CAFE MANAGER notified Pt and Pt dghtr ([facility] ). Pt was heartbroken when she heard the news about staying until Wednesday, Pt has hx o f PTSD and Major Depressive Disorder. INTERNET CAFE MANAGER referred Machine Clothing Worker to follow up. INTERNET CAFE MANAGER notified Dr. Marilee chopra as well. Next Steps: Pending insurance authorization for [facility]. With Pt and Pt dghtr ([place]), INTERNET CAFE MANAGER provided option of going home with Home health PT and OT provided by [facility]. Pt dghtr and Pt wants to stay until Tuesday 07/03. Community Support Services Current Outpt/Agency/Support Groups: [facility] and [facility] [place] [facility] for follow up counseling for chemical dependency and mental health counseling psychologist ing. Discharge Transportation Transportation Needs: Pt dghtr ([facility] [phone]) to transport when ready. Pending at: [facility] [address] [address] Facility: [phone] [facility] (Admissions): [phone] Electronically signed: KUNAL CLANCY 06/30/2019 15:40 lan of Care - Estelita mcfarlane, Sindhu, PT - 06/30/2019 2:20 PM PDT Physical Therapy Treatment Note Recommended discharge disposition: penitentiary facility(reports dtr has to work alot an [...] Bed Mobility Supine to Sit, Level of [place]: independent Sit to Supine, Level of [place]: independent Transfers Sit-Stand, Level of [place]: stand by assist Stand-Sit, Level of [place]: supervised Fmr-Fsffk-Agw, Assistive Device: none Safety Issues: balance decreased during turns Impairments: (poor safety awareness) Gait Level of [place]: stand by assist, contact guard assist Assistive [...] All Transfers Goal Most Recent Value LTG [place] Level modified independent at 06/25/2019 1300 Gait Goal Most Recent Value LTG [place] Level modified independent at 06/25/2019 1300 LTG [...] mi ght be different from the original. CARE HOME FACILITY TRANSFER ORDERS Patient Name: Steffi Bishop [...] limb(s)): [x] OT Evaluation & Treat [] CHIEF SCIENTIFIC OFFICER Evaluation Treat Wound/Skin Care: [x] Follow current recommendations of the wound team for treatment. [] Wound Vac management per nursing protocol. Labs/Imaging: [] PT/INR: Frequency per SNF provider Goal INR: [] Fingerstick glucose check before meals and bedtime and PRN [] Labs: Follow up: [place] Ji [address] [place] [id number] Follow up on 07/04 at 1 PM. [facility] [address] [place] [address] Main Schedule an appointment as soon as possible for a visit intake Jimdo. [employer] [facility] [address] [address], [place] [address] Main Go on 07/20/2019 intake; Please arrive at 8:30 a.m. to complete paperwork. Appointment will begin at 9:00 a. m. [place] [address] [place] [address] Schedule an appointment as soon [...] Beto Kothari MD, certify that post hospital penitentiary care is medically necessary o n a continuing basis for any of the conditions for which he/she received care during this ho spitalization. Additional Orders/Instructions: Physician's signature: Beto kothari MD 06/30/2019 12:32 [facility] USE ONLY: [] Admitting [...] She ordered breakf ast - potatoes, eddy, [place] Aleks thompson. Would like to try a [...] of Care - Aislinn sultana, Maris Pérez, INTERNET CAFE MANAGER - 06/29/2019 10:37 AM PDTBehavioral Health Specialist received referral from Enrique Associate Data Scientist. I met with patient whom was agreeable [...] to reconnect her with outpatient treatment at [facility]. I asked patient if she would like assistance with coordinating her services so she may have a plan upon discharge to which patient agreed. We contacted [facility] and Patient provided a Voicemail requesting they return her call to her daughter Sherry mosqueda's cell. Patient noted working with an RN by the name of Mei Waite whom she can als o reach out to for support at this location. Patient and I then contacted Jimdo., whom she used to be enrolled with [...] coordinate appointme nt date and instructions for Jimdo. Information was also included in AVS with [...] out this was her 6th day at [facility] as pt thought it was her 1st. Pt expresses desire to "make better decisions." Mood/Behavior: calm, cooperative, tearful Orientation: disoriented to, situation, time Bed Mobility Supine to Sit, Level of [place]: supervised Sit to Supine, Level of [place]: modified independent Transfers Sit-Stand, Level of [place]: contact guard assist Stand-Sit, Level of [place]: stand by assist [id number], Assistive Device: gait belt, 2 wheeled walker (FWW) Gait Gait Comments: Increased lateral sway and occasional scissoring with no AD requiring min A to steady. Level of [place]: minimal assist (75% patient effort) Assistive Device: [...] All Transfers Goal Most Recent Value LTG [place] Level modified independent at 06/25/2019 1300 Gait Goal Most Recent Value LTG [place] Level modified independent at 06/25/2019 1300 LTG Assistive Device 2 wheeled walker (FWW) at 06/25/2019 1300 LTG Distance (feet) 150 at 06/25/2019 1300 PT Time Calculation Individual Start Time: 1540 Individual Stop Time: 1621 Individual Total Time: 41 PT Total Treatment Time: 41 lan of Sally - Nathan hanson, DIMPLE Pineda [employer] Cadet - 06/28/2019 2:34 PM PDTCare Management Follow-Up Readmission Risk: Medium Current Discharge Plan Anticipated Discharge Disposition: Daughter's home, Catarina Cardoso in [place]. Expected DC Date: 06/29/19 Barriers to Discharge: none Steps Taken Toward Discharge: INTERNET CAFE MANAGER student called Catarina Hunt to ask if she would pick her mot her up tomorrow, left a voicemail. Next Steps: Community Support Services Community Agency Name: [facility] Other Resources: Pt said she had a prescriber at [facility] but didn't kn ow the name. INTERNET CAFE MANAGER student called [employer] and her account has been closed out. She will need a new referral to go back. INTERNET CAFE MANAGER student called [facility] to make an appointment with her therapist but had to leave a voicemail. Discharge Transportation Transportation Needs: Daughter might be able to transport. Notes: INTERNET CAFE MANAGER student met with Steffi. Pt was given resources for an [employer], low-income housing and housing assistance program. She agreed to meet with Maris from [facility]. KUNAL brown left a voicemail for Maris to meet with her. Steffi has an appointment with her PCP Anat Pickett 07/04/19 at 1 PM at [facility]. Electronically signed: DIMPLE Tapia [employer]et 06/28/2019 14:34 lan of Sally - Antionette [...] Device: none Supine to Sit, Level of [place]: stand by assist(due to velocity of movement) Sit to Supine, Level of [place]: modified independent Transfers Additional Documentation: sit to/from stand Sit-Stand, Level of [place]: minimal assist (75% patient effort) Stand-Sit, Level of [place]: minimal assist (75% patient effort) Imq-Cshra-Yla, Assistive Device: gait belt, 2 wheeled walker (FWW) Gait Gait Comments: rapid velocity, forward trunk flexion that increases without AD Level of [place]: minimal assist (75% patient effort) Assistive Device: [...] All Transfers Goal Most Recent Value LTG [place] Level modified independent at 06/25/2019 1300 Gait Goal Most Recent Value LTG [place] Level modified independent at 06/25/2019 1300 LTG [...] Barriers to Discharge: Pt is homeless from [facility] Steps Taken Toward Discharge: Initial assessment Next Steps: Homeless resources for [facility]. Will follow up with Pt regarding he [...] MISAEL Outcome: Ongoing, progressing 06/26/2019 1126 by eMhreen Calderon RN Outcome: Ongoing, progressing Problem: Adult [...] to/from sit Supine to Sit, Level of [place]: minimal assist (75% patient effort), moderate assist (50% patient effort) Transfers Additional Documentation: sit to/from stand Sit-Stand, Level of [place]: minimal assist (75% patient effort), moderate assist (50% patient effort) Gait Level of [place]: minimal assist (75% patient effort), moderate assist [...] All Transfers Goal Most Recent Value LTG [place] Level modified independent at 06/25/2019 1300 Gait Goal Most Recent Value LTG [place] Level modified independent at 06/25/2019 1300 LTG [...] to use. Discussed possible need for SNF. [facility] is the only option in [place] but sister not very happy with that option. Discussed Amaury Galvin without any resolution from famil y about choice. Will need to discuss options with pt when she is more awake and alert. Pt wa s extubated this morning. She is currently sleeping and not participating in our discussion . Pt has 2 sons in [place] as well, Zacarias and Enrique. All children [...] does not use DME Caregiving Concerns: no cardiac care unit nurse pr family member to care for pt [...] Addressed: homelessness/housing concerns Services Anticipated at Discharge: penitentiary facility Equipment Used at Home: none Pharmacy/Medication Needs: Transportation Needs: family or friend will provide Initial Plan Anticipated Discharge Disposition: Expected DC Date: other (see comments) Notes: Electronically signed: KUNAL MACIAS 06/24/2019 13:46 lan of Care - Marylu Berg MSW - 06/23/2019 2:29 PM PDTUnable to complete assessment as pt's Aunt has not yet returned my call. I called [facility] and obtained the name/number of pt's philipp mckinney. Her name is Catarina Oropeza and her reportedl address is [address] [place] [address] Rd, [place], [place]. ([phone]). I left a message on the number though [facility] if [facility] was the [facility]. I called the [facility] ([phone]) and requested that they go by daughters home to s if she is there and to call me back. Addendum: Received t/c from pt's daughter. She informed that she would be visiting [facility] after work around 6pm. Notified RN. Will try to complete assessment tomorrow. Per [facility], pt drinks daily. She smokes MJ daily. There have been times of illicit drug use. lan of [facility] - Max Laura, RD - 06/23/2019 1:55 [...] 10:40 AM PDTCalled pt's Aunt Margo Hinson ([phone]) and requested a return call with time [...] [facility] | | | | performed at [facility];888 | mmol/L | LABORATORY | | | | [address];[place] | | | | | | [address] | | | | + + + + + + + + | Specimen | + + | Blood | + + + + + + + | Performing | Address | City/State/Zipcode | Phone Number | | Organization | | | | + + + + + | [facility] | [address] | [place] [address] | [phone] | + + + + + Potassium (07/03/2019 4:17 AM PDT) + + + + + + | Component | Value | Ref Range | Performed | Pathologist | | | | | At | Signature | + + + + + + | K | 3.9Comment: Testing | 3.5 - 4.9 | [facility] | | | | performed at [facility];888 | mmol/L | LABORATORY | | | | [address];[place] | | | | | | [address] | | | | + + + + + + + + | Specimen | + + | Blood | + + + + + + + | Performing | Address | City/State/Zipcode | Phone Number | | Organization | | | | + + + + + | [facility] | [address] | [place] [address] | [phone] | + + + + + Phosphorus (07/03/2019 4:17 AM PDT) + + + + + + | Component | Value | Ref Range | Performed | Pathologist | | | | | At | Signature | + + + + + + | Phosphorus | 4.6Comment: Testing | 2.3 - 4.8 mg/dL | [facility] | | | | performed at [facility], [address] | | LABORATORY | | | | [address], | | | | | | [place] [address] | | | | + + + + + + + + | Specimen | + + | Blood | + + + + + + + | Performing | Address | City/State/Zipcode | Phone Number | | Organization | | | | + + + + + | [facility] | [address] | [place] [address] | [phone] | + + + + + Magnesium [...] | | | | | [place] [address] | | | | + + + + + + + + | Specimen | + + | Blood | + + + + + + + | Performing | Address | City/State/Zipcode | Phone Number | | Organization | | | | + + + + + | [facility] | [address] | [place] [address] | [phone] | + + + + + Potassium (07/02/2019 4:30 AM PDT) + + + + + + | Component | Value | Ref Range | Performed | Pathologist | | | | | At | Signature | + + + + + + | K | 4.1Comment: Testing | 3.5 - 4.9 | [facility] | | | | performed at [facility];888 | mmol/L | LABORATORY | | | | [address];[place] | | | | | | [address] | | | | + + + + + + + + | Specimen | + + | Blood | + + + + + + + | Performing | Address | City/State/Zipcode | Phone Number | | Organization | | | | + + + + + | [facility] | [address] | [place] [address] | [phone] | + + + + + Phosphorus (07/02/2019 4:30 AM PDT) + + + + + + | Component | Value | Ref Range | Performed | Pathologist | | | | | At | Signature | + + + + + + | Phosphorus | 4.6Comment: Testing | 2.3 - 4.8 mg/dL | [facility] | | | | performed at [facility], [address] | | LABORATORY | | | | [address], | | | | | | [place] [address] | | | | + + + + + + + + | Specimen | + + | Blood | + + + + + + + | Performing | Address | City/State/Zipcode | Phone Number | | Organization | | | | + + + + + | [facility] | [address] | [place] [address] | [phone] | + + + + + Magnesium (07/02/2019 4:30 AM PDT) + + + + + + | Component | Value | Ref Range | Performed | Pathologist | | | | | At | Signature | + + + + + + | Magnesium | 2.1Comment: Testing | 1.7 - 2.4 mg/dL | [facility] | | | | performed at [facility], [address] | | LABORATORY | | | | [address], | | | | | | [place] [address] | | | | + + + + + + + + | Specimen | + + | Blood | + + + + + + + | Performing | Address | City/State/Zipcode | Phone Number | | Organization | | | | + + + + + | [facility] | [address] | [place] [address] | [phone] | + + + + + Renal [...] 3.6 | 2.3 - 4.8 mg/dL | [facility] | | | | | | LABORATORY | | + + + + + + | Estimated | >60Comment: GFR <60: | >60 | [facility] | | | GFR [...] | | | | | | MDRD [facility] traceable | | | | | | equation.Testing | | | | | | performed at [facility];[address] | | | | | | [facility];[place], [place] | | | | | | [address] | | | | + + + + + + + + | Specimen | + + | | + + + + + + + | Performing | Address | City/State/Zipcode | Phone Number | | Organization | | | | + + + + + | [facility] | [address] | [place] [address] | [phone] | + + + + + Phosphorus (07/01/2019 7:41 AM PDT) + + + + + + | Component | Value | Ref Range | Performed | Pathologist | | | | | At | Signature | + + + + + + | Phosphorus | 3.5Comment: Testing | 2.3 - 4.8 mg/dL | [facility] | | | | performed at [facility];[address] | | LABORATORY | | | | [address];[place] | | | | | | [address] | | | | + + + + + + + + | Specimen | + + | | + + + + + + + | Performing | Address | City/State/Zipcode | Phone Number | | Organization | | | | + + + + + | [facility] | [address] | [place] [address] | [phone] | + + + + + Magnesium (07/01/2019 7:41 AM PDT) + + + + + + | Component | Value | Ref Range | Performed | Pathologist | | | | | At | Signature | + + + + + + | Magnesium | 1.8Comment: Testing | 1.7 - 2.4 mg/dL | [facility] | | | | performed at [facility];[address] | | LABORATORY | | | | [address];[place], [place] | | | | | | [address] | | | | + + + + + + + + | Specimen | + + | | + + + + + + + | Performing | Address | City/State/Zipcode | Phone Number | | Organization | | | | + + + + + | [facility] | [address] | [place] [address] | [phone] | + + + + + Potassium (07/01/2019 7:41 AM PDT) + + + + + + | Component | Value | Ref Range | Performed | Pathologist | | | | | At | Signature | + + + + + + | K | 3.9Comment: Testing | 3.5 - 4.9 | [facility] | | | | performed at [facility];888 | mmol/L | LABORATORY | | | | [address];[place] | | | | | | [address] | | | | + + + + + + + + | Specimen | + + | | + + + + + + + | Performing | Address | City/State/Zipcode | Phone Number | | Organization | | | | + + + + + | [facility] | [address] | [place] [address] | [phone] | + + + + + Potassium (06/30/2019 10:31 AM PDT) + + + + + + | Component | Value | Ref Range | Performed | Pathologist | | | | | At | Signature | + + + + + + | K | 3.4 (L)Comment: Testing | 3.5 - 4.9 | [facility] | | | | performed at [facility];888 | mmol/L | LABORATORY | | | | [address];[place], [place] | | | | | | [address] | | | | + + + + + + + + | Specimen | + + | Blood | + + + + + + + | Performing | Address | City/State/Zipcode | Phone Number | | Organization | | | | + + + + + | [facility] | [address] | [place] [address] | [phone] | + + + + + Phosphorus (06/30/2019 5:08 AM PDT) + + + + + + | Component | Value | Ref Range | Performed | Pathologist | | | | | At | Signature | + + + + + + | Phosphorus | 3.0Comment: Testing | 2.3 - 4.8 mg/dL | [facility] | | | | performed at [facility], [address] | | LABORATORY | | | | [address], | | | | | | [place] [address] | | | | + + + + + + + + | Specimen | + + | Blood | + + + + + + + | Performing | Address | City/State/Zipcode | Phone Number | | Organization | | | | + + + + + | [facility] | [address] | [place] [address] | [phone] | + + + + + Magnesium (06/30/2019 5:08 AM PDT) + + + + + + | Component | Value | Ref Range | Performed | Pathologist | | | | | At | Signature | + + + + + + | Magnesium | 2.0Comment: Testing | 1.7 - 2.4 mg/dL | [facility] | | | | performed at [facility], [address] | | LABORATORY | | | | [address], | | | | | | [place] [address] | | | | + + + + + + + + | Specimen | + + | Blood | + + + + + + + | Performing | Address | City/State/Zipcode | Phone Number | | Organization | | | | + + + + + | [facility] | [address] | [place] [address] | [phone] | + + + + + Renal [...] | >60Comment: GFR <60: | >60 | [facility] | | | GFR [...] W | | | | | | [facility], | | | | | | [place] [address] | | | | + + + + + + + + | Specimen | + + | Blood | + + + + + + + | Performing | Address | City/State/Zipcode | Phone Number | | Organization | | | | + + + + + | [facility] | [address] | [place] [address] | [phone] | + + + + + Potassium (06/30/2019 4:37 AM PDT) + + + + + + | Component | Value | Ref Range | Performed | Pathologist | | | | | At | Signature | + + + + + + | K | 3.6Comment: Testing | 3.5 - 4.9 | [facility] | | | | performed at [facility];888 | mmol/L | LABORATORY | | | | [address];[place] | | | | | | [address] | | | | + + + + + + + + | Specimen | + + | Blood | + + + + + + + | Performing | Address | City/State/Zipcode | Phone Number | | Organization | | | | + + + + + | [facility] | [address] | [place] [address] | [phone] | + + + + + Potassium (06/29/2019 5:46 PM PDT) + + + + + + | Component | Value | Ref Range | Performed | Pathologist | | | | | At | Signature | + + + + + + | K | 4.1Comment: Testing | 3.5 - 4.9 | [facility] | | | | performed at [facility];888 | mmol/L | LABORATORY | | | | [facility];[place], [place] | | | | | | [address] | | | | + + + + + + + + | Specimen | + + | Blood | + + + + + + + | Performing | Address | City/State/Zipcode | Phone Number | | Organization | | | | + + + + + | [facility] | [address] | [place] [address] | [phone] | + + + + + Potassium (06/29/2019 12:22 PM PDT) + + + + + + | Component | Value | Ref Range | Performed | Pathologist | | | | | At | Signature | + + + + + + | K | 3.4 (L)Comment: Testing | 3.5 - 4.9 | [facility] | | | | performed at [facility];[address] | mmol/L | LABORATORY | | | | [address];[place] | | | | | | [address] | | | | + + + + + + + + | Specimen | + + | Blood | + + + + + + + | Performing | Address | City/State/Zipcode | Phone Number | | Organization | | | | + + + + + | [facility] | [address] | [place] [address] | [phone] | + + + + + Magnesium (06/29/2019 5:01 AM PDT) + + + + + + | Component | Value | Ref Range | Performed | Pathologist | | | | | At | Signature | + + + + + + | Magnesium | 1.9Comment: Testing | 1.7 - 2.4 mg/dL | [facility] | | | | performed at [facility], [address] | | LABORATORY | | | | [address], | | | | | | [place] [address] | | | | + + + + + + + + | Specimen | + + | | + + + + + + + | Performing | Address | City/State/Zipcode | Phone Number | | Organization | | | | + + + + + | [facility] | [address] | [place] [address] | [phone] | + + + + + Renal [...] | >60Comment: GFR <60: | >60 | [facility] | | | GFR [...] | | | | | | MDRD [facility] traceable | | | | | | equation.Testing | | | | | | performed at [facility], [address] | | | | | | [facility], | | | | | | [place] [address] | | | | + + + + + + + + | Specimen | + + | Blood | + + + + + + + | Performing | Address | City/State/Zipcode | Phone Number | | Organization | | | | + + + + + | [facility] | [address] | [place] [address] | [phone] | + + + + + CBC [...] [facility] | | | | performed at [facility], [address] | | LABORATORY | | | | [address], | | | | | | [place] [address] | | | | + + + + + + + + | Specimen | + + | | + + + + + + + | Performing | Address | City/State/Zipcode | Phone Number | | Organization | | | | + + + + + | [facility] | [address] | [place] [address] | [phone] | + + + + + Potassium (06/28/2019 5:01 PM PDT) + + + + + + | Component | Value | Ref Range | Performed | Pathologist | | | | | At | Signature | + + + + + + | K | 3.5Comment: Testing | 3.5 - 4.9 | [facility] | | | | performed at [facility];[address] | mmol/L | LABORATORY | | | | [address];[place], [place] | | | | | | [address] | | | | + + + + + + + + | Specimen | + + | Blood | + + + + + + + | Performing | Address | City/State/Zipcode | Phone Number | | Organization | | | | + + + + + | [facility] | [address] | [place] [address] | [phone] | + + + + + Potassium (06/28/2019 9:43 AM PDT) + + + + + + | Component | Value | Ref Range | Performed | Pathologist | | | | | At | Signature | + + + + + + | K | 3.1 (L)Comment: Testing | 3.5 - 4.9 | [facility] | | | | performed at [facility];[address] | mmol/L | LABORATORY | | | | [address];[place], [place] | | | | | | [address] | | | | + + + + + + + + | Specimen | + + | Blood | + + + + + + + | Performing | Address | City/State/Zipcode | Phone Number | | Organization | | | | + + + + + | [facility] | [address] | [place] [address] | [phone] | + + + + + Phenytoin [...] [facility] | | | | performed at [facility] | | LABORATORY | | | | [facility];[place], [place] | | | | | | [address] | | | | + + + + + + + + | Specimen | + + | Blood | + + + + + + + | Performing | Address | City/State/Zipcode | Phone Number | | Organization | | | | + + + + + | [facility] | [address] | [place] [address] | [phone] | + + + + + POC Glucose (06/28/2019 8:17 AM PDT) + + + + + + | Component | Value | Ref Range | Performed | Pathologist | | | | | At | Signature | + + + + + + | Glucose, | 148 (H)Comment: Testing | 65 - 99 mg/dL | [facility] | | | POC | performed at [facility];[address] | | LABORATORY | | | | [address];[place], [place] | | | | | | [address] | | | | + + + + + + + + | Specimen | + + | | + + + + + + + | Performing | Address | City/State/Zipcode | Phone Number | | Organization | | | | + + + + + | [facility] | [address] | [place] [address] | [phone] | + + + + + Phosphorus (06/28/2019 1:42 AM PDT) + + + + + + | Component | Value | Ref Range | Performed | Pathologist | | | | | At | Signature | + + + + + + | Phosphorus | 2.8Comment: Testing | 2.3 - 4.8 mg/dL | [facility] | | | | performed at [facility], [address] | | LABORATORY | | | | [address], | | | | | | [place] [address] | | | | + + + + + + + + | Specimen | + + | Blood | + + + + + + + | Performing | Address | City/State/Zipcode | Phone Number | | Organization | | | | + + + + + | [facility] | [address] | [place] [address] | [phone] | + + + + + Magnesium (06/28/2019 1:42 AM PDT) + + + + + + | Component | Value | Ref Range | Performed | Pathologist | | | | | At | Signature | + + + + + + | Magnesium | 1.8Comment: Testing | 1.7 - 2.4 mg/dL | [facility] | | | | performed at [facility], [address] | | LABORATORY | | | | [address], | | | | | | [place] [address] | | | | + + + + + + + + | Specimen | + + | Blood | + + + + + + + | Performing | Address | City/State/Zipcode | Phone Number | | Organization | | | | + + + + + | [facility] | [address] | [place] [address] | [phone] | + + + + + CBC [...] | | | | | [place] [address] | | | | + + + + + + + + | Specimen | + + | Blood | + + + + + + + | Performing | Address | City/State/Zipcode | Phone Number | | Organization | | | | + + + + + | [facility] | [address] | [place] [address] | [phone] | + + + + + Basic [...] | >60Comment: GFR <60: | >60 | [facility] | | | GFR [...] | | | | | | MDRD [facility] traceable | | | | | | equation.Testing | | | | | | performed at [facility], [address] | | | | | | [facility], | | | | | | [place] [address] | | | | + + + + + + + + | Specimen | + + | Blood | + + + + + + + | Performing | Address | City/State/Zipcode | Phone Number | | Organization | | | | + + + + + | [facility] | [address] | [place] [address] | [phone] | + + + + + Culture, [...] | | LABORATORY | | | | Blvd;[place] [address] | | | | + + + + + + | RESULT | NO GROWTH 6 DAYS | | [facility] | | | | | | LABORATORY | | + + + + + + | RESULT | Testing performed at | | [facility] | | | | [facility], [address] | | LABORATORY | | | | Court [place], [place] | | | | | | [address]Zypuxsb: Testing | | | | | | performed at [facility], [address] | | | | | | [address] [place], [place] | | | | | | [address] | | | | + + + + + + + + | Specimen | + + | Blood - Peripheral | | blood specimen | | (specimen) | + + + + + + + | Performing | Address | City/State/Zipcode | Phone Number | | Organization | | | | + + + + + | [facility] | [address] | [place] [address] | [phone] | + + + + + POC Glucose (06/27/2019 5:01 PM PDT) + + + + + + | Component | Value | Ref Range | Performed | Pathologist | | | | | At | Signature | + + + + + + | Glucose, | 95Comment: Testing | 65 - 99 mg/dL | [facility] | | | POC | performed at [facility];[address] | | LABORATORY | | | | [address];[place] | | | | | | [address] | | | | + + + + + + + + | Specimen | + + | | + + + + + + + | Performing | Address | City/State/Zipcode | Phone Number | | Organization | | | | + + + + + | [facility] | [address] | [place] [address] | [phone] | + + + + + Culture, [...] Special | Testing performed at | | [facility] | | | Requests | [facility];[address] | | LABORATORY | | | | Court;[place] [address] | | | | + + + + + + | RESULT | NO GROWTH 6 DAYS | | [facility] | | | | | | LABORATORY | | + + + + + + | RESULT | Testing performed at | | [facility] | | | | L, [address] [facility] | | LABORATORY | | | | [place] | | | | | | [address]Cnoavmq: Testing | | | | | | performed at [facility], [address] | | | | | | [place] | | | | | | [address] | | | | + + + + + + + + | Specimen | + + | Blood - Peripheral | | blood specimen | | (specimen) | + + + + + + + | Performing | Address | City/State/Zipcode | Phone Number | | Organization | | | | + + + + + | [facility] | [address] | [place] [address] | [phone] | + + + + + Phosphorus [...] | | | | | [place] [address] | | | | + + + + + + + + | Specimen | + + | Blood | + + + + + + + | Performing | Address | City/State/Zipcode | Phone Number | | Organization | | | | + + + + + | [facility] | [address] | [place] [address] | [phone] | + + + + + Magnesium (06/27/2019 4:29 AM PDT) + + + + + + | Component | Value | Ref Range | Performed | Pathologist | | | | | At | Signature | + + + + + + | Magnesium | 1.6 (L)Comment: Testing | 1.7 - 2.4 mg/dL | [facility] | | | | performed at [facility], [address] | | LABORATORY | | | | [place], | | | | | | [place] [address] | | | | + + + + + + + + | Specimen | + + | Blood | + + + + + + + | Performing | Address | City/State/Zipcode | Phone Number | | Organization | | | | + + + + + | [facility] | [address] | [place] [address] | [phone] | + + + + + CBC [...] | | | | | [place] [address] | | | | + + + + + + + + | Specimen | + + | Blood | + + + + + + + | Performing | Address | City/State/Zipcode | Phone Number | | Organization | | | | + + + + + | [facility] | [address] | [place] [address] | [phone] | + + + + + Basic [...] W | | | | | | [facility], | | | | | | [place] [address] | | | | + + + + + + + + | Specimen | + + | Blood | + + + + + + + | Performing | Address | City/State/Zipcode | Phone Number | | Organization | | | | + + + + + | [facility] | [address] | [place] [address] | [phone] | + + + + + POC Glucose (06/26/2019 9:25 PM PDT) + + + + + + | Component | Value | Ref Range | Performed | Pathologist | | | | | At | Signature | + + + + + + | Glucose, | 97Comment: Testing | 65 - 99 mg/dL | [facility] | | | POC | performed at [facility];[address] | | LABORATORY | | | | [address];[place] | | | | | | [address] | | | | + + + + + + + + | Specimen | + + | | + + + + + + + | Performing | Address | City/State/Zipcode | Phone Number | | Organization | | | | + + + + + | [facility] | [address] | [place] [address] | [phone] | + + + + + POC Glucose (06/26/2019 11:45 AM PDT) + + + + + + | Component | Value | Ref Range | Performed | Pathologist | | | | | At | Signature | + + + + + + | Glucose, | 88Comment: Testing | 65 - 99 mg/dL | [facility] | | | POC | performed at [facility];[address] | | LABORATORY | | | | [address];[place], [place] | | | | | | [address] | | | | + + + + + + + + | Specimen | + + | | + + + + + + + | Performing | Address | City/State/Zipcode | Phone Number | | Organization | | | | + + + + + | [facility] | [address] | [place] [address] | [phone] | + + + + + ECG [...] | | | | | | at [facility];[address] [place] [address] | | | | | | [facility];[place] [address] | | | | + + + + + + + + | Specimen | + + | Blood | + + + + + + + | Performing | Address | City/State/Zipcode | Phone Number | | Organization | | | | + + + + + | [facility] | [address] | [place] [address] | [phone] | + + + + + TSH, Reflex Free T4 (06/26/2019 4:03 AM PDT) + + + + + + | Component | Value | Ref Range | Performed | Pathologist | | | | | At | Signature | + + + + + + | TSH | 0.560Comment: Testing | 0.450 - 5.100 | [facility] | | | | performed at [facility], [address] | uIU/mL | LABORATORY | | | | [place], | | | | | | [place] [address] | | | | + + + + + + + + | Specimen | + + | Blood | + + + + + + + | Performing | Address | City/State/Zipcode | Phone Number | | Organization | | | | + + + + + | [facility] | [address] | [place] [address] | [phone] | + + + + + Phosphorus (06/26/2019 4:03 AM PDT) + + + + + + | Component | Value | Ref Range | Performed | Pathologist | | | | | At | Signature | + + + + + + | Phosphorus | 2.7Comment: Testing | 2.3 - 4.8 mg/dL | [facility] | | | | performed at [facility], [address] | | LABORATORY | | | | [place], | | | | | | [place] [address] | | | | + + + + + + + + | Specimen | + + | Blood | + + + + + + + | Performing | Address | City/State/Zipcode | Phone Number | | Organization | | | | + + + + + | [facility] | [address] | [place] [address] | [phone] | + + + + + Magnesium (06/26/2019 4:03 AM PDT) + + + + + + | Component | Value | Ref Range | Performed | Pathologist | | | | | At | Signature | + + + + + + | Magnesium | 1.7Comment: Testing | 1.7 - 2.4 mg/dL | [facility] | | | | performed at [facility], [address] | | LABORATORY | | | | [place], | | | | | | [place] [address] | | | | + + + + + + + + | Specimen | + + | Blood | + + + + + + + | Performing | Address | City/State/Zipcode | Phone Number | | Organization | | | | + + + + + | [facility] | [address] | [place] [address] | [phone] | + + + + + CBC [...] K/uL | LABORATORY | | | | [address], | | | | | | [place] [address] | | | | + + + + + + + + | Specimen | + + | Blood | + + + + + + + | Performing | Address | City/State/Zipcode | Phone Number | | Organization | | | | + + + + + | [facility] | [address] | [place] [address] | [phone] | + + + + + Basic [...] | >60Comment: GFR <60: | >60 | [facility] | | | GFR [...] W | | | | | | [facility], | | | | | | [place] [address] | | | | + + + + + + + + | Specimen | + + | Blood | + + + + + + + | Performing | Address | City/State/Zipcode | Phone Number | | Organization | | | | + + + + + | [facility] | [address] | [place] [address] | [phone] | + + + + + Cortisol, AM (06/26/2019 4:03 AM PDT) + + + + + + | Component | Value | Ref Range | Performed | Pathologist | | | | | At | Signature | + + + + + + | Cortisol AM | 19.9Comment: Testing | 4.3 - 22.4 | [facility] | | | | performed at [facility], [address] | ug/dL | LABORATORY | | | | [place], | | | | | | [place] [address] | | | | + + + + + + + + | Specimen | + + | Blood | + + + + + + + | Performing | Address | City/State/Zipcode | Phone Number | | Organization | | | | + + + + + | [facility] | [address] | [place] [address] | [phone] | + + + + + POC Glucose (06/25/2019 8:57 PM PDT) + + + + + + | Component | Value | Ref Range | Performed | Pathologist | | | | | At | Signature | + + + + + + | Glucose, | 72Comment: Testing | 65 - 99 mg/dL | [facility] | | | POC | performed at [facility];[address] | | LABORATORY | | | | [address];[place] | | | | | | [address] | | | | + + + + + + + + | Specimen | + + | | + + + + + + + | Performing | Address | City/State/Zipcode | Phone Number | | Organization | | | | + + + + + | [facility] | [address] | [place] [address] | [phone] | + + + + + POC Glucose (06/25/2019 6:18 PM PDT) + + + + + + | Component | Value | Ref Range | Performed | Pathologist | | | | | At | Signature | + + + + + + | Glucose, | 82Comment: Testing | 65 - 99 mg/dL | [facility] | | | POC | performed at [facility];[address] | | LABORATORY | | | | [address];[place], [place] | | | | | | [address] | | | | + + + + + + + + | Specimen | + + | | + + + + + + + | Performing | Address | City/State/Zipcode | Phone Number | | Organization | | | | + + + + + | [facility] | [address] | [place] [address] | [phone] | + + + + + CT [...] Testing | 65 - 99 mg/dL | [facility] | | | POC | performed at [facility];[address] | | LABORATORY | | | | [address];[place] | | | | | | [address] | | | | + + + + + + + + | Specimen | + + | | + + + + + + + | Performing | Address | City/State/Zipcode | Phone Number | | Organization | | | | + + + + + | [facility] | [address] | [place] [address] | [phone] | + + + + + Potassium (06/25/2019 11:26 AM PDT) + + + + + + | Component | Value | Ref Range | Performed | Pathologist | | | | | At | Signature | + + + + + + | K | 4.1Comment: Testing | 3.5 - 4.9 | [facility] | | | | performed at [facility];[address] | mmol/L | LABORATORY | | | | [address] [facility];[place], [place] | | | | | | [address] | | | | + + + + + + + + | Specimen | + + | Blood | + + + + + + + | Performing | Address | City/State/Zipcode | Phone Number | | Organization | | | | + + + + + | [facility] | [address] | [place] [address] | [phone] | + + + + + ECHO [...] | | | POC | performed at [facility];[address] | | LABORATORY | | | | [address];[place] | | | | | | [address] | | | | + + + + + + + + | Specimen | + + | | + + + + + + + | Performing | Address | City/State/Zipcode | Phone Number | | Organization | | | | + + + + + | [facility] | [address] | [place] [address] | [phone] | + + + + + Phosphorus (06/25/2019 3:10 AM PDT) + + + + + + | Component | Value | Ref Range | Performed | Pathologist | | | | | At | Signature | + + + + + + | Phosphorus | 2.5Comment: Testing | 2.3 - 4.8 mg/dL | [facility] | | | | performed at [facility];[address] | | LABORATORY | | | | [address];[place] | | | | | | [address] | | | | + + + + + + + + | Specimen | + + | Blood | + + + + + + + | Performing | Address | City/State/Zipcode | Phone Number | | Organization | | | | + + + + + | [facility] | [address] | [place] [address] | [phone] | + + + + + Magnesium (06/25/2019 3:10 AM PDT) + + + + + + | Component | Value | Ref Range | Performed | Pathologist | | | | | At | Signature | + + + + + + | Magnesium | 2.1Comment: Testing | 1.7 - 2.4 mg/dL | [facility] | | | | performed at [facility];[address] | | LABORATORY | | | | [facility];[place], [place] | | | | | | [address] | | | | + + + + + + + + | Specimen | + + | Blood | + + + + + + + | Performing | Address | City/State/Zipcode | Phone Number | | Organization | | | | + + + + + | [facility] | [address] | [place] [address] | [phone] | + + + + + CBC [...] | | | Absolute | performed at [facility];[address] | K/uL | LABORATORY | | | | [facility];[place], [place] | | | | | | [address] | | | | + + + + + + + + | Specimen | + + | Blood | + + + + + + + | Performing | Address | City/State/Zipcode | Phone Number | | Organization | | | | + + + + + | [facility] | [address] | [place] [address] | [phone] | + + + + + Basic [...] | >60Comment: GFR <60: | >60 | [facility] | | | GFR [...] | | | | | performed at [facility];[address] | | | | | | [facility];[place], [place] | | | | | | [address] | | | | + + + + + + + + | Specimen | + + | Blood | + + + + + + + | Performing | Address | City/State/Zipcode | Phone Number | | Organization | | | | + + + + + | [facility] | [address] | [place] [address] | [phone] | + + + + + Potassium (06/24/2019 8:19 PM PDT) + + + + + + | Component | Value | Ref Range | Performed | Pathologist | | | | | At | Signature | + + + + + + | K | 3.6Comment: Testing | 3.5 - 4.9 | [facility] | | | | performed at [facility];[address] | mmol/L | LABORATORY | | | | [address];[place] | | | | | | [address] | | | | + + + + + + + + | Specimen | + + | Blood | + + + + + + + | Performing | Address | City/State/Zipcode | Phone Number | | Organization | | | | + + + + + | [facility] | [address] | [place] [address] | [phone] | + + + + + Phosphorus (06/24/2019 8:19 PM PDT) + + + + + + | Component | Value | Ref Range | Performed | Pathologist | | | | | At | Signature | + + + + + + | Phosphorus | 2.5Comment: Testing | 2.3 - 4.8 mg/dL | [facility] | | | | performed at [facility];[address] | | LABORATORY | | | | [address];[place] | | | | | | [address] | | | | + + + + + + + + | Specimen | + + | Blood | + + + + + + + | Performing | Address | City/State/Zipcode | Phone Number | | Organization | | | | + + + + + | [facility] | [address] | [place] [address] | [phone] | + + + + + Magnesium (06/24/2019 8:19 PM PDT) + + + + + + | Component | Value | Ref Range | Performed | Pathologist | | | | | At | Signature | + + + + + + | Magnesium | 1.7Comment: Testing | 1.7 - 2.4 mg/dL | [facility] | | | | performed at [facility] | | LABORATORY | | | | [facility];[place], [place] | | | | | | [address] | | | | + + + + + + + + | Specimen | + + | Blood | + + + + + + + | Performing | Address | City/State/Zipcode | Phone Number | | Organization | | | | + + + + + | [facility] | [address] | [place] [address] | [phone] | + + + + + POC Glucose (06/24/2019 8:08 PM PDT) + + + + + + | Component | Value | Ref Range | Performed | Pathologist | | | | | At | Signature | + + + + + + | Glucose, | 86Comment: Testing | 65 - 99 mg/dL | [facility] | | | POC | performed at [facility];[address] | | LABORATORY | | | | [address];[place] | | | | | | [address] | | | | + + + + + + + + | Specimen | + + | | + + + + + + + | Performing | Address | City/State/Zipcode | Phone Number | | Organization | | | | + + + + + | [facility] | [address] | [place] [address] | [phone] | + + + + + POC Glucose (06/24/2019 6:13 PM PDT) + + + + + + | Component | Value | Ref Range | Performed | Pathologist | | | | | At | Signature | + + + + + + | Glucose, | 103 (H)Comment: Testing | 65 - 99 mg/dL | [facility] | | | POC | performed at [facility];[address] | | LABORATORY | | | | [address];[place] | | | | | | [address] | | | | + + + + + + + + | Specimen | + + | | + + + + + + + | Performing | Address | City/State/Zipcode | Phone Number | | Organization | | | | + + + + + | [facility] | [address] | [place] [address] | [phone] | + + + + + EEG-Continuous [...] | | | norepinephrine 3 mcg/min (06/24/19 3918) | | | phenylephrine Stopped (06/23/19 1724) | | | propofol infusion 35 mcg/kg/min [...] 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 Diffuse beta | | | activity [...] Bryan Celis MD | | | [facility] Clinical Neurophysiologist | | + + + [...] | | propofol infusion 35 mcg/kg/min (06/24/19 2602) PRN | | | Meds:.acetaminophen, albuterol-ipratropium, Hypoglycemia [...] continuous EEG | | | representing a pzyz-he-sbzmrlop encephalopathy. Diffuse beta | | | activity [...] Bryan Celis MD | | | [facility] Clinical Neurophysiologist | | + + + [...] 1314) | | | phenylephrine Stopped (06/23/19 7124) | | | propofol infusion 35 mcg/kg/min (06/24/19 5726) PRN | | | Meds:.acetaminophen, albuterol-ipratropium, Hypoglycemia [...] continuous EEG | | | representing a wcgp-un-pswtcstf encephalopathy. Diffuse beta | | | activity [...] Testing | 65 - 99 mg/dL | [facility] | | | POC | performed at [facility];[address] | | LABORATORY | | | | [address];[place], [place] | | | | | | [address] | | | | + + + + + + + + | Specimen | + + | | + + + + + + + | Performing | Address | City/State/Zipcode | Phone Number | | Organization | | | | + + + + + | [facility] | [address] | [place] [address] | [phone] | + + + + + POC [...] | | | POC | performed at [facility];[address] | | LABORATORY | | | | [address];[place] | | | | | | [address] | | | | + + + + + + + + | Specimen | + + | | + + + + + + + | Performing | Address | City/State/Zipcode | Phone Number | | Organization | | | | + + + + + | [facility] | [address] | [place] [address] | [phone] | + + + + + Phenytoin Level, Total and Free (06/24/2019 9:28 AM PDT) + + + + + + | Component | Value | Ref Range | Performed | Pathologist | | | | | At | Signature | + + + + + + | PHENYTOIN | 15.1Comment: | 10.0 - 20.0 | [facility] | | | TOTAL [...] 1.6Comment: | 1.0 - 2.0 ug/mL | [facility] | | | FREE | | | LABORATORY | | | | Detection | | | | | | Limit = 0.5Testing | | | | | | performed at [facility], | | | | | | [address], [address], | | | | | | [facility] [address] | | | | + + + + + + + + | Specimen | + + | Blood | + + + + + + + | Performing | Address | City/State/Zipcode | Phone Number | | Organization | | | | + + + + + | [facility] | [address] | [place] [address] | [phone] | + + + + + Phosphorus (06/24/2019 5:04 AM PDT) + + + + + + | Component | Value | Ref Range | Performed | Pathologist | | | | | At | Signature | + + + + + + | Phosphorus | 1.8 (L)Comment: Testing | 2.3 - 4.8 mg/dL | [facility] | | | | performed at [facility];[address] | | LABORATORY | | | | [address];[place], [place] | | | | | | [address] | | | | + + + + + + + + | Specimen | + + | Blood | + + + + + + + | Performing | Address | City/State/Zipcode | Phone Number | | Organization | | | | + + + + + | [facility] | [address] | [place] [address] | [phone] | + + + + + Magnesium (06/24/2019 5:04 AM PDT) + + + + + + | Component | Value | Ref Range | Performed | Pathologist | | | | | At | Signature | + + + + + + | Magnesium | 1.9Comment: Testing | 1.7 - 2.4 mg/dL | [facility] | | | | performed at [facility];[address] | | LABORATORY | | | | [address];[place], [place] | | | | | | [address] | | | | + + + + + + + + | Specimen | + + | Blood | + + + + + + + | Performing | Address | City/State/Zipcode | Phone Number | | Organization | | | | + + + + + | [facility] | [address] | [place] [address] | [phone] | + + + + + CBC [...] | | | Absolute | performed at [facility];[address] | K/uL | LABORATORY | | | | [address];[place] | | | | | | [address] | | | | + + + + + + + + | Specimen | + + | Blood | + + + + + + + | Performing | Address | City/State/Zipcode | Phone Number | | Organization | | | | + + + + + | [facility] | [address] | [place] [address] | [phone] | + + + + + Basic [...] | | | | | | MDRD [facility] traceable | | | | | | equation.Testing | | | | | | performed at [facility] | | | | | | [facility];[place], [place] | | | | | | [address] | | | | + + + + + + + + | Specimen | + + | Blood | + + + + + + + | Performing | Address | City/State/Zipcode | Phone Number | | Organization | | | | + + + + + | [facility] | [address] | [place] [address] | [phone] | + + + + + Phenytoin [...] [facility] | | | | performed at [facility];[address] | | LABORATORY | | | | [facility];[place], [place] | | | | | | [address] | | | | + + + + + + + + | Specimen | + + | Blood | + + + + + + + | Performing | Address | City/State/Zipcode | Phone Number | | Organization | | | | + + + + + | [facility] | [address] | [place] [address] | [phone] | + + + + + POC [...] | | | POC | performed at [facility];[address] | | LABORATORY | | | | [address];[place] | | | | | | [address] | | | | + + + + + + + + | Specimen | + + | | + + + + + + + | Performing | Address | City/State/Zipcode | Phone Number | | Organization | | | | + + + + + | [facility] | [address] | [place] [address] | [phone] | + + + + + Potassium (06/23/2019 6:39 PM PDT) + + + + + + | Component | Value | Ref Range | Performed | Pathologist | | | | | At | Signature | + + + + + + | K | 4.4Comment: Testing | 3.5 - 4.9 | [facility] | | | | performed at [facility];888 | mmol/L | LABORATORY | | | | [address];[place] | | | | | | [address] | | | | + + + + + + + + | Specimen | + + | Blood | + + + + + + + | Performing | Address | City/State/Zipcode | Phone Number | | Organization | | | | + + + + + | [facility] | [address] | [place] [address] | [phone] | + + + + + Magnesium (06/23/2019 6:39 PM PDT) + + + + + + | Component | Value | Ref Range | Performed | Pathologist | | | | | At | Signature | + + + + + + | Magnesium | 2.2Comment: Testing | 1.7 - 2.4 mg/dL | [facility] | | | | performed at [facility];[address] | | LABORATORY | | | | [address];[place] | | | | | | [address] | | | | + + + + + + + + | Specimen | + + | Blood | + + + + + + + | Performing | Address | City/State/Zipcode | Phone Number | | Organization | | | | + + + + + | [facility] | [address] | [place] [address] | [phone] | + + + + + XR [...] mediastinum | | | below the acquired [id number] into the upper abdomen. Overlying | | [...] the mediastinum below the | | acquired galos-xh-mjtz into the upper abdomen. Overlying EKG leads [...] Testing | 65 - 99 mg/dL | [facility] | | | POC | performed at [facility];[address] | | LABORATORY | | | | [address];[place] | | | | | | [address] | | | | + + + + + + + + | Specimen | + + | | + + + + + + + | Performing | Address | City/State/Zipcode | Phone Number | | Organization | | | | + + + + + | [facility] | [address] | [place] [address] | [phone] | + + + + + Lactic Acid (06/23/2019 1:20 PM PDT) + + + + + + | Component | Value | Ref Range | Performed | Pathologist | | | | | At | Signature | + + + + + + | Lactate, | 1.4Comment: Testing | 0.4 - 2.0 | [facility] | | | Serum | performed at [facility];888 | mmol/L | LABORATORY | | | | [address];[place], [place] | | | | | | [address] | | | | + + + + + + + + | Specimen | + + | Blood | + + + + + + + | Performing | Address | City/State/Zipcode | Phone Number | | Organization | | | | + + + + + | [facility] | [address] | [place] [address] | [phone] | + + + + + Hepatic [...] VINNY | | | | performed at [facility];[address] | | LABORATORY | | | | [address];[place], [place] | | | | | | [address] | | | | + + + + + + + + | Specimen | + + | Blood | + + + + + + + | Performing | Address | City/State/Zipcode | Phone Number | | Organization | | | | + + + + + | [facility] | [address] | [place] [address] | [phone] | + + + + + Procalcitonin [...] | | | | | | at [facility];[address] [place] [address] | | | | | | [facility];[place] [address] | | | | + + + + + + + + | Specimen | + + | Blood | + + + + + + + | Performing | Address | City/State/Zipcode | Phone Number | | Organization | | | | + + + + + | [facility] | [address] | [place] [address] | [phone] | + + + + + POC [...] | | | POC | performed at [facility];[address] | | LABORATORY | | | | [address];[place] | | | | | | [address] | | | | + + + + + + + + | Specimen | + + | | + + + + + + + | Performing | Address | City/State/Zipcode | Phone Number | | Organization | | | | + + + + + | [facility] | [address] | [place] [address] | [phone] | + + + + + POC Glucose (06/23/2019 8:16 AM PDT) + + + + + + | Component | Value | Ref Range | Performed | Pathologist | | | | | At | Signature | + + + + + + | Glucose, | 121 (H)Comment: Testing | 65 - 99 mg/dL | [facility] | | | POC | performed at [facility];[address] | | LABORATORY | | | | [address];[place], [place] | | | | | | [address] | | | | + + + + + + + + | Specimen | + + | | + + + + + + + | Performing | Address | City/State/Zipcode | Phone Number | | Organization | | | | + + + + + | [facility] | [address] | [place] [address] | [phone] | + + + + + Blood [...] | | | | | performed at [facility] | | | | | | [address];[place], [place] | | | | | | [address] | | | | + + + + + + + + | Specimen | + + | | + + + + + + + | Performing | Address | City/State/Zipcode | Phone Number | | Organization | | | | + + + + + | [facility] | [address] | [place] [address] | [phone] | + + + + + Phosphorus (06/23/2019 4:08 AM PDT) + + + + + + | Component | Value | Ref Range | Performed | Pathologist | | | | | At | Signature | + + + + + + | Phosphorus | 4.4Comment: Testing | 2.3 - 4.8 mg/dL | [facility] | | | | performed at [facility];[address] | | LABORATORY | | | | [address];[place] | | | | | | [address] | | | | + + + + + + + + | Specimen | + + | Blood | + + + + + + + | Performing | Address | City/State/Zipcode | Phone Number | | Organization | | | | + + + + + | [facility] | [address] | [place] [address] | [phone] | + + + + + Magnesium (06/23/2019 4:08 AM PDT) + + + + + + | Component | Value | Ref Range | Performed | Pathologist | | | | | At | Signature | + + + + + + | Magnesium | 1.6 (L)Comment: Testing | 1.7 - 2.4 mg/dL | [facility] | | | | performed at [facility];[address] | | LABORATORY | | | | [address];[place] | | | | | | [address] | | | | + + + + + + + + | Specimen | + + | Blood | + + + + + + + | Performing | Address | City/State/Zipcode | Phone Number | | Organization | | | | + + + + + | [facility] | [address] | [place] [address] | [phone] | + + + + + CBC [...] | | | | | performed at [facility] | | | | | | [address];[place] | | | | | | [address] | | | | + + + + + + + + | Specimen | + + | Blood | + + + + + + + | Performing | Address | City/State/Zipcode | Phone Number | | Organization | | | | + + + + + | [facility] | [address] | [place] [address] | [phone] | + + + + + Basic [...] | >60Comment: GFR <60: | >60 | [facility] | | | GFR [...] | | | | | performed at [facility] | | | | | | [facility];[place], [place] | | | | | | [address] | | | | + + + + + + + + | Specimen | + + | Blood | + + + + + + + | Performing | Address | City/State/Zipcode | Phone Number | | Organization | | | | + + + + + | [facility] | [address] | [place] [address] | [phone] | + + + + + EEG (06/23/2019 3:43 AM PDT) + + + | Narrative | Performed At | + + + | Jeana A Monk, Neurodiagnostic Tech 06/23/2019 3:44 | | | [facility] [address] | | | [place] [address] Patient: Steffi Bishop ID: [id number] : | | | 1965 Age: 53 Gender: female Room #: [id number] Physician: | | | Anastasia Argueta Ash Worker: Jeana Goldstein Ref. Physician: Cary | | | [place] DO Recording Date: 06/23/2019 Duration: 00:31:48 | | | Report Date: 06/23/2019 2:20 AM Medications: Ativan, | | | Keppra 2000mg loaded in ER at [facility], fentanyl, no sedation | | | History: [...] | | | immediately notified to the location analyst provider, Dr. Holland. | | | | [...] | | | Serum | performed at [facility];888 | mmol/L | LABORATORY | | | | [facility];[place], [place] | | | | | | [address] | | | | + + + + + + + + | Specimen | + + | Blood | + + + + + + + | Performing | Address | City/State/Zipcode | Phone Number | | Organization | | | | + + + + + | [facility] | [address] | [place] [address] | [phone] | + + + + + XR [...] | | | | [facility], [address] [facility] | | LABORATORY | | | | Court, [place] | | | | | | [address]Gbalcab: Testing | | | | | | performed at [facility], [address] | | | | | | [facility], | | | | | | [place] [address] | | | | + + + + + + + + | Specimen | + + | Body Fluid - Sputum | | specimen obtained by | | aspiration | | (specimen) | + + + + + + + | Performing | Address | City/State/Zipcode | Phone Number | | Organization | | | | + + + + + | [facility] | [address] | [place] [address] | [phone] | + + + + + POC Glucose (06/22/2019 11:44 PM PDT) + + + + + + | Component | Value | Ref Range | Performed | Pathologist | | | | | At | Signature | + + + + + + | Glucose, | 144 (H)Comment: Testing | 65 - 99 mg/dL | [facility] | | | POC | performed at [facility];[address] | | LABORATORY | | | | [address];[place] | | | | | | [address] | | | | + + + + + + + + | Specimen | + + | | + + + + + + + | Performing | Address | City/State/Zipcode | Phone Number | | Organization | | | | + + + + + | [facility] | [address] | [place] [address] | [phone] | + + + + + MRSA [...] | | | | | performed at [facility] | | | | | | [address];[place], [place] | | | | | | [address] | | | | + + + + + + + + | Specimen | + + | Tissue - Both | | anterior nares (body | | structure) | + + + + + + + | Performing | Address | City/State/Zipcode | Phone Number | | Organization | | | | + + + + + | [facility] | [address] | [place] [address] | [phone] | + + + + + documented [...] mental status type | + + | Streator coma scale total score 3-8, at hospital [...] | | | | AC, NPO, Daytime 6669-4250 Use | | | | | | | NIGHT DOSE for doses scheduled: | | | | | | | HS, 3AM, Nighttime 7348-6906 | | | | | | | [...] | | | | Starting [facility] 06/22/19 at 2346, | | | [...] | | | protocol, Starting [facility] 06/22/19 | | | | | [...]
--- OUTSIDE RECORDS SUMMARY | ~2020-05-21 | XMS | Encounter Summary ---
Demographics + + + | Address | [address] [place] [address] | | | [place] [address] | + + + | Home Phone | | + + + | Preferred Language | Unknown | + + + | Marital Status | Single | + + + | Cheondoism Affiliation | 1041 | + + + | Race | or | + + + | Ethnic Group | Not or | + + + Author + + + | Author | [facility] | | | and [place] | + + + | Organization | [facility] | | [...] Team Providers + +------+ + | Care Audio/Video Technician Name | Role | Phone | + +------+ + | Anat Pickett | PCP | | + +------+ + Reason for Visit + +--------+ + | Reason | Onset | Comments | | | Date | | + +--------+ + | New Patient | 10/24/ | Same day cancellation | | | 2019 | | + +--------+ + Encounter Details +--------+ + + + + | Date | Type | Department | Care Team | Description | +--------+ + + + + | 10/24/ | Telephone | [facility] | Thuan Pulliam | New Patient (Same | | 2019 | | GASTROENTEROLOGY | MD Araceli [address] | day cancellation ) | | | | [address] | [place] [address] | | | | | [place], [place] | [phone] | | | | | [address] | | | | | | [phone] | | | +--------+ + + + [...] this encounter Miscellaneous Notes Telephone Encounter - Soarescliff Camacho Irish - 10/24/2019 11:23 AM Isela- Mom, is rafi ling regarding New Patient (Same day cancellation ) and would like a call back. Additional Call Details: Calling to cancel today's appointment.Patient is currently in the emergency room in [facility] from a seizure. Will call at a later time to reschedule If this is a symptom based call, was patient offered triage? Not Applicable If this is a symptom based call and you were unable to immediately transfer the call to a [place] [employer] field processing supervisor was caller made aware that if at any time she feels it is an emergency they sh ould call 911 or go to the nearest emergency room? not applicable documented in this encounter Plan of Treatment Not on filedocumented as of this encounter Visit Diagnoses Not on filedocumented in this encounter"
--- OUTSIDE RECORDS SUMMARY | ~2020-05-21 | XMS | Encounter Summary ---
Demographics + + + | Address | [address] [place] [address] | | | [place] [address] | + + + | Home Phone [...] + + + | Author | [facility] | | | and [place] | + + + | Organization | [facility] | | | [...] Team Providers + +------+ + | Care Laminator Preforms Name | Role | Phone | + [...] | | | | | Tonic-clonic | [address] | [address] | | | | | seizure | [address] | [place] | | | | | disorder | CR, | [place], [place] | | | | | ([facility]) | [place] [address] | [address] Phone: | | | | | | Phone: | [phone] | | | | | | [phone] | Fax: | | | | | | Fax: | [phone] | | | | | | [phone] | | + +--------+ + + + + Encounter Details +--------+---------+ + + + | Date | Type | Department | Care Team | Description | +--------+---------+ + + + | 11/09/ | Office | [facility] | Anastasia Argueta, | Chronic migraine | | 2020 | Visit | NEUROLOGY [address] | MD Alexander JAMES | (Primary Dx); | | | | [address] | [address] [place], [place] | Neuropathy | | | | [place], [place] | [address] | | | | | [address] | [phone] | | | | | [phone] | | | +--------+---------+ + + + [...] history of headaches and provoked seizures in [facility] drug use here today for follow [...] 75 mg TID and now endorses bilateral taoist pain rather than left unilateral pain. She [...] Family history and Social history reviewed p [facility]. Physical Exam: There were no vitals [...]
--- OUTSIDE RECORDS SUMMARY | ~2020-05-21 | XMS | Encounter Summary ---
Demographics + + + | Address | [address] [place] [address] | | | [place] [address] | + + + | Home Phone | | + + + | Preferred Language | Unknown | + + + | Marital Status | Single | + + + | Sikh Affiliation | 1041 | + + + | Race | or | + + + | Ethnic Group | Not or | + + + Author + + + | Author | [facility] | | | and [place] | + + + | Organization | [facility] | | | [...] Team Providers + +------+ + | Care Plant Production Worker Name | Role | Phone | + +------+ + | Anat Pickett | PCP | | + +------+ + Reason for Visit +---------+--------+ + | Reason | Onset | Comments | | | Date | | +---------+--------+ + | Results | 10/04/ | | | | 2020 | | +---------+--------+ + Encounter Details +--------+ + + + + | Date | Type | Department | Care Team | Description | +--------+ + + + + | 10/04/ | Telephone | [facility] | Keenan Holland, | Results | | 2020 | | NEUROLOGY [address] | Finishing Frame Runner | | | | | [address] | | | | | | [place] | | | | | | [address] | | | | | | [phone] | | | +--------+ + + + [...] Miscellaneous Notes Telephone Encounter - Keenan Holland Finishing Frame Runner - 10/04/2019 12:54 PM PSTReceived l ab results from [facility] [employer]. Given to doctor for review. documented in this encounter Plan of Treatment Not on filedocumented as of this encounter Visit Diagnoses Not on filedocumented in this encounter"
--- OUTSIDE RECORDS SUMMARY | ~2020-05-21 | XMS | Encounter Summary ---
Demographics + + + | Address | [address] [place] [address] | | | [place] [address] | + + + | Home Phone [...] + + + | Author | [facility] | | | and [place] | + + + | Organization | [facility] | | [...] Team Providers + +------+ + | Care Casting Inspector Name | Role | Phone | [...] + + | 10/03/ | Telephone | [facility] | Keenan Holland, | Medical Follow Up | | 2019 | | NEUROLOGY [address] | Aoc Director Combat Plans Officer | | | | | [address] | | | | | | [place], [place] | | | | | | [address] | | | | | | [phone] | | | +--------+ + + + [...] Miscellaneous Notes Telephone Encounter - Keenan Holland, Aoc Director Combat Plans Officer - 10/03/2019 12:17 PM PSTTried call ing pt at [phone], she didn't answered. Called [phone] and left message to have he r call us back. documented in this encounter Plan of Treatment Not on filedocumented as of this encounter Visit Diagnoses Not on filedocumented in this encounter"
--- OUTSIDE RECORDS SUMMARY | ~2020-05-21 | XMS | Encounter Summary ---
Demographics + + + | Address | [address] [place] [address] | | | [place] [address] | + + + | Home Phone | | + + + | Preferred Language | Unknown | + + + | Marital Status | Single | + + + | Orthodox Affiliation | 1041 | + + + | Race | or | + + + | Ethnic Group | Not or | + + + Author + + + | Author | [facility] | | | and [place] | + + + | Organization | [facility] | | | and [...] Team Providers + +------+ + | Care Certified Technician Name | Role | Phone | [...] + + | 01/22/ | Telephone | [facility] | Keenan Holland, | Appointment | | 2019 | | NEUROLOGY [address] | Sewer Builder | | | | | [address] | | | | | | [place], [place] | | | | | | [address] | | | | | | [phone] | | | +--------+ + + + [...] Miscellaneous Notes Telephone Encounter - Keenan Holland Sewer Builder - 01/23/2020 3:12 PM PDTCalled pt and confirmed schedule follow up on March 20 at 11:30am. documented in this encounter Plan of Treatment Not on filedocumented as of this encounter Visit Diagnoses Not on filedocumented in this encounter"
--- OUTSIDE RECORDS SUMMARY | ~2020-05-21 | XMS | Encounter Summary ---
Demographics + + + | Address | [address] [place] [address] | | | [place] [address] | + + + | Home Phone [...] + + + | Author | [facility] | | | and [place] | + + + | Organization | [facility] | | [...] Team Providers + +------+ + | Care Clerical Transcriber Name | Role | Phone | + [...] + + | 08/01/ | Telephone | [facility] | Anastasia Argueta, | Referral | | 2019 | | NEUROLOGY [address] | MD Alexander JAMES | | | | | [address] | [address] [place], [place] | | | | | [place], [place] | [address] | | | | | [address] | [phone] | | | | | [phone] | | | +--------+ + + + [...] and arranging transportation . Call back at: [phone]. If no answer leave detailed voicemail. If this is a symptom based call, was patient offered triage? Not Applicable If this is a symptom based call and you were unable to immediately transfer the call to a [place] agriculture worker was caller made aware that if at any time she feels it is an emergency they sh ould call 911 or go to the nearest emergency room? not applicable documented in this encounter Plan of Treatment Not on filedocumented as of this encounter Visit Diagnoses Not on filedocumented in this encounter"
--- OUTSIDE RECORDS SUMMARY | ~2020-05-21 | XMS | Encounter Summary ---
Demographics + + + | Address | [address] [place] [address] | | | [place] [address] | + + + | Home Phone [...] Author + + + | Author | [facility] | | | and [place] | + + + | Organization | [facility] | | | [...] Team Providers + +------+ + | Care Information Technology Officer Name | Role | Phone | [...] | | | | | Tonic-clonic | [address] | [address] | | | | | seizure | [address] | [address] | | | | | disorder | CR, | [place], [place] | | | | | ([facility]) | [place] [address] | [address] Phone: | | | | | | Phone: | [phone] | | | | | | [phone] | Fax: | | | | | | Fax: | [phone] | | | | | | [phone] | | + +--------+ + + + + Encounter Details +--------+ + + + + | Date | Type | Department | Care Team | Description | +--------+ + + + + | 01/09/ | Virtual | [facility] | Anastasia Argueta, | Chronic migraine | | 2020 | Office | NEUROLOGY [address] | MD Alexander JAMES | (Primary Dx); | | | Visit | [address] | [place], [place] | Seizure disorder | | | | [place], [place] | [address] | ([facility]); Neuropathy | | | | [address] | [phone] | | | | | [phone] | | | +--------+ + + + [...] current dose Clinical discussion length: 11-20 min (10969) Patient has not been seen in office [...] alcohol use. Patient was ad mitted to [facility] in June 2019 with status epilepticus [...] the last visit. Patient was admitted to [facility] for breakthrough seizures on 12/22/2019. Per admission [...] did lab work for Keppra at her [facility] last week but results are [...]
--- OUTSIDE RECORDS SUMMARY | ~2020-05-21 | XMS | Encounter Summary ---
Demographics + + + | Address | [address] [place] [address] | | | [place] [address] | + + + | Home Phone [...] Team Providers + +------+ + | Care Metal Sprayer Machined Parts Name | Role | Phone | + [...] + + | 11/08/ | Telephone | [facility] | Keenan Holland, | Confirmation | | 2020 | | NEUROLOGY [address] | Anode Machine Operator | | | | | [address] | | | | | | [place], [place] | | | | | | [address] | | | | | | [phone] | | | +--------+ + + + [...] Miscellaneous Notes Telephone Encounter - Keenan Holland Anode Machine Operator - 11/09/2019 12:24 PM PSTConfirmed appt with Daughter and left message on [employer] mobile. documented in this encounter Plan of Treatment Not on filedocumented as of this encounter Visit Diagnoses Not on filedocumented in this encounter"
--- OUTSIDE RECORDS SUMMARY | 2020-05-21 11:54 | XMS ---
PreManage Notification: SATHYA CUETO Security Drill Hand Events No recent Security Events currently on file CRITERIA MET - [facility] - Has Care Guidelines - [facility] - 2 Visits in 30 Days CARE PROVIDERS RAINA RETANA [facility] PHONE: [phone] SHEFALI GOLDBERG [facility] 06/21/2018-[facility] PHONE: Unknown RUBY NJTEENA Clinic/Center: [facility] 12/26/2018-[facility] PHONE: [phone] ART SMITH Lab Director/Garden Consultant [facility] PHONE: [phone] CAROLYN VERGARA MD Psychiatry \T\ Neurology: Psychiatry 07/25/2019-Current PHONE: Unknown Team, [place] Lab Director/Garden Consultant [facility] PHONE: Unknown Name Count Includes [facility] 06/23/2019-Current PHONE: [phone] Guidelines Source: [facility] Guidelines Date: 01/18/2019 Care Coordination: Client receives services at [facility]. For discharge planning and coordination of care, please contact client\T\#39;s\T\nbsp;Garden Consultant: Quita Banuelos [facility]\T\nbsp; [phone] Care History Medical/Surgical 07/20/2018 [facility] - PATIENT WAS SEEN BY PCP ON 06/15/18. - PATIENT HAS NO SHOWED TO APTS FOR THE PAST YEAR THE LAST PCP APT WAS ON . 07/19/2018 [facility] \T\middot;\T\nbsp; PATIENT- [facility] ELIGIBLE \T\middot;\T\nbsp; PLEASE REFER PATIENT TO [facility] FOR NON EMERGENT MEDICAL NEEDS. \T\middot;\ T\nbsp; [facility] CAN SEE PATIENTS SAME DAY FOR APTS IF PATIENT CALLS FIRST THING IN THE MORNING. [facility]12 MO.) [facility] NOTE: Visits indicate total known visits. ED/UCC VISIT TRACKING (12 MO.) [facility] [place] [facility] Emergency COMPLAINT: - ALTERED LOC 04/25/2020 03:58 [facility] [place] TYPE: Emergency COMPLAINT: - POSS SEIZURE DIAGNOSES: - Allergy status to analgesic agent status - Other psychoactive substance abuse, uncomplicated - Major depressive disorder, single episode, unspecified - Other residential (current) drug therapy - Epilepsy, unspecified, not intractable, without status epilep - Blood alcohol level of less than 20 mg/100 ml - Allergy status to other drugs, medicaments and biological sub 12/22/2019 09:30 [facility] [place] TYPE: Emergency COMPLAINT: - SEIZURE DIAGNOSES: - Unspecified bacterial pneumonia - Allergy status to analgesic agent status - Unspecified convulsions - Other residential (current) drug therapy - Major depressive disorder, single episode, unspecified - Epilepsy, unspecified, not intractable, with status epileptic 10/24/2019 07:06 [facility] [place] TYPE: Emergency COMPLAINT: - SEIZURE DIAGNOSES: - Allergy status to analgesic agent status - Major depressive disorder, single episode, unspecified - Epilepsy, unspecified, not intractable, without status epilep - Other residential (current) drug therapy - Allergy status to other drugs, medicaments and biological sub 07/24/2019 10:33 [facility] [place] TYPE: Emergency COMPLAINT: - NUMBNESS AND TINGLEING 06/22/2019 20:02 [facility] [place] TYPE: Emergency COMPLAINT: - POSS SEUZURE DIAGNOSES: - Allergy status to other drugs, medicaments and biological sub - Unspecified convulsions - Allergy status to analgesic agent status - Other residential (current) drug therapy - Nicotine dependence, unspecified, uncomplicated - Epilepsy, unspecified, not intractable, with status epileptic - Major depressive disorder, single episode, unspecified INPATIENT VISIT TRACKING (12 MO.) [facility]: Internal Medicine DIAGNOSES: - Status Epilepticus - Epilepsy, unspecified, not intractable, with status epileptic 07/24/2019 10:34 [facility] [place] TYPE: Observation COMPLAINT: - FACIAL NUMBNESS DIAGNOSES: - Other seasonal allergic rhinitis - Epilepsy, unspecified, not intractable, without status epilep - NIHSS score 2 - Anesthesia of skin - Allergy status to other drugs, medicaments and biological sub - Other residential (current) drug therapy - Major depressive disorder, single episode, unspecified - Headache - Post-traumatic stress disorder, unspecified - Other visual disturbances [email or web address]
== END 2020-05-21 16:04 | disposition home or self-care (01) ==
LOC: ED 11:49
DX: G40.909 Epilepsy, unspecified, not intractable, without status epilepticus (principal); Z91.19 Patient's noncompliance with other medical treatment and regimen; F32.9 Major depressive disorder, single episode, unspecified; Z88.8 Allergy status to other drugs, medicaments and biological substances; Z79.899 Other long term (current) drug therapy
CPT/HCPCS: 51701; 80053; 81001; 84484; 84703; 85025; 96368; 99284-25; G0480; J1953; J7030; Q2009

== ENCOUNTER 2020-05-24 15:55 | Emergency (ER) | payer OTHER ==
[~2020-05-24] VITALS: Ht 162.6 cm; Wt 54.5 kg
--- OUTSIDE RECORDS SUMMARY | ~2020-05-24 | XMS | Encounter Summary ---
Demographics + + + | Address | [address] [place] [address] | | | [place] [address] | + + + | Home Phone | | + + + | Preferred Language | Unknown | + + + | Marital Status | Single | + + + | Jew Affiliation | 1041 | + + + | Race | or | + + + | Ethnic Group | Not or | + + + Author + + + | Author | [facility] | | | and [place] | + + + | Organization | [facility] | | | and [place] | + + + | Address | Unknown | + + + | Phone | Unavailable | + + + Support + + +---------+ + | Name | Relationship | Address | Phone | + + +---------+ + | Margo Hinson | ECON | Unknown | | + + +---------+ + Care Team Providers + +------+ + | Care Construction Rep Name | Role | Phone | + +------+ + | Anat Pickett | PCP | | + +------+ + Reason for Visit + +--------+ + | Reason | Onset | Comments | | | Date | | + +--------+ + | Appointment | 09/25/ | | | | 2020 | | + +--------+ + Encounter Details +--------+ + + + + | Date | Type | Department | Care Team | Description | +--------+ + + + + | 09/25/ | Telephone | [facility] | Keenan Holland, | Appointment | | 2019 | | NEUROLOGY [address] | Wood Ski Maker | | | | | [address] | | | | | | [place], [place] | | | | | | [address] | | | | | | [phone] | | | +--------+ + + + + Social History + +-------+ +--------+------+ | Tobacco Use | Types | Packs/Day | Years | Date | | | | | Used | | + +-------+ +--------+------+ | Current Every Day | | 0.25 | | | | Smoker | | | | | + +-------+ +--------+------+ + + +---------+ + | Alcohol Use | Drinks/Week | oz/Week | Comments | + + +---------+ + | Yes | | | | + + +---------+ + + + + | Sex Assigned at | Date Recorded | | | | + + + | Not on file | | + + + documented as of this encounter Functional Status + + + + | Functional Status | Response | Date of Assessment | + + + + | Are you deaf or do you have serious | No | 07/03/2019 | | difficulty hearing? | | | + + + + | Are you blind or do you have serious | No | 07/03/2019 | | difficulty seeing, even when wearing | | | | glasses? | | | + + + + | Do you have serious difficulty walking or | No | 07/03/2019 | | climbing stairs? (5 years old or older) | | | + + + + | Do you have difficulty dressing or bathing? | No | 07/03/2019 | | (5 years old or older) | | | + + + + | Because of a physical, mental, or emotional | No | 07/03/2019 | | condition, do you have difficulty doing | | | | errands alone such as visiting a doctor's | | | | office or shopping? [15 years old or | | | | older)] | | | + + + + + + + + | Cognitive Status | Response | Date of Assessment | + + + + | Because of a physical, mental, or emotional | Yes | 07/03/2019 | | condition, do you have serious difficulty | | | | concentrating, remembering, or making | | | | decisions? (5 years old or older) | | | + + + + documented as of this encounter Miscellaneous Notes Telephone Encounter - Keenan Holland, Wood Ski Maker - 09/25/2019 10:21 AM PSTConfirmed appt. el ephone Encounter - Mckay Loyd - 09/25/2019 9:55 AM PSTJulie, is returning call for Appointment and would like a call back. Additional Call Details: Returning call to confirm appt. elephone Encounter - Keenan Holland, Wood Ski Maker - 09/25/2019 9:21 AM PST#3 Call - called Margo at [phone] she answered and stated she doesn't live there and will give her a message that we wer e trying to get a hold of her. I left her know we will cancel it today if we dont not get co nfirmation. #3 called Steffi and left another message stated I will cancel her appt today by 1130am if I do not get confirmation.Electronically signed by Keenan Holland, Wood Ski Maker at 2019 9:30 AM PSTdocumented in this encounter Plan of Treatment Not on filedocumented as of this encounter Visit Diagnoses Not on filedocumented in this encounter"
--- OUTSIDE RECORDS SUMMARY | ~2020-05-24 | XMS | Encounter Summary ---
Demographics + + + | Address | [address] [place] [address] | | | [place] [address] | + + + | Home Phone | | + + + | Preferred Language | Unknown | + + + | Marital Status | Single | + + + | Latter-Day Affiliation | 1041 | + + + | Race | or | + + + | Ethnic Group | Not or | + + + Author + + + | Author | [facility] | | | and [place] | + + + | Organization | [facility] | | | and [...] Team Providers + +------+ + | Care Coverage Specialist Name | Role | Phone | + +------+ + | Anat Pickett | PCP | | + +------+ + Reason for Visit + +--------+ + | Reason | Onset | Comments | | | Date | | + +--------+ + | Appointment | 01/22/ | | | | 2020 | | + +--------+ + Encounter Details +--------+ + + + + | Date | Type | Department | Care Team | Description | +--------+ + + + + | 01/22/ | Telephone | [facility] | Keenan Holland, | Appointment | | 2019 | | NEUROLOGY [address] | Transition Mgr Rn | | | | | [address] | | | | | | [place], [place] | | | | | | [phone] | | | | | | [phone] | | | +--------+ + + + [...] do you have serious | No | 12/25/2019 | | difficulty hearing? | | | + + + + | Are you blind or do you have serious | No | 12/25/2019 | | difficulty seeing, even when wearing | | | | glasses? | | | + + + + | Do you have serious difficulty walking or | No | 12/25/2019 | | climbing stairs? (5 years old or older) | | | + + + + | Do you have difficulty dressing or bathing? | No | 12/25/2019 | | (5 years old or older) | | | + + + + | Because of a physical, mental, or emotional | No | 12/25/2019 | | condition, do you have difficulty [...] physical, mental, or emotional | No | 12/25/2019 | | condition, do you have serious difficulty | | | | concentrating, remembering, or making | | | | decisions? (5 years old or older) | | | + + + + documented as of this encounter Miscellaneous Notes Telephone Encounter - Keenan Holland Transition Mgr Rn - 01/23/2020 3:12 PM PDTCalled pt and confirmed schedule follow up on March 20 at 11:30am. documented in this encounter Plan of Treatment Not on filedocumented as of this encounter Visit Diagnoses Not on filedocumented in this encounter"
--- OUTSIDE RECORDS SUMMARY | ~2020-05-24 | XMS | Encounter Summary ---
Demographics + + + | Address | [address] [place] [address] | | | [place] [address] | + + + | Home Phone | | + + + | Preferred Language | Unknown | + + + | Marital Status | Single | + + + | Methodist Affiliation | 1041 | + + + | Race | or | + + + | Ethnic Group | Not or | + + + Author + + + | Author | [facility] | | | and [place] | + + + | Organization | [facility] | | | and [...] Team Providers + +------+ + | Care Value Stream Manager Name | Role | Phone | + +------+ + | Anat Pickett | PCP | | + +------+ + Reason for Visit + +--------+ + | Reason | Onset | Comments | | | Date | | + +--------+ + | Records Request | 08/01/ | | | | 2019 | | + +--------+ + Encounter Details +--------+ + + + + | Date | Type | Department | Care Team | Description | +--------+ + + + + | 08/01/ | Telephone | [facility] | Keenan Holland, | Records Request | | 2018 | | NEUROLOGY [address] | Pmp Project Manager | | | | | [address] | | | | | | [place] | | | | | | [address] | | | | | | [phone] | | | +--------+ + + + [...] Miscellaneous Notes Telephone Encounter - Keenan Holland Pmp Project Manager - 08/01/2019 8:44 AM PSTReceived cris chung [facility] documented in this encounter Plan of Treatment Not on filedocumented as of this encounter Visit Diagnoses Not on filedocumented in this encounter"
--- OUTSIDE RECORDS SUMMARY | ~2020-05-24 | XMS | Encounter Summary ---
Demographics + + + | Address | [address] [place] [address] | | | [place] [address] | + + + | Home Phone | | + + + | Preferred Language | Unknown | + + + | Marital Status | Single | + + + | Moravian Affiliation | 1041 | + + + | Race | or | + + + | Ethnic Group | Not or | + + + Author + + + | Author | [facility] | | | and [place] | + + + | Organization | [facility] | | | and [...] Team Providers + +------+ + | Care Bar Pilot Name | Role | Phone | + +------+ + | Anat Pickett | PCP | | + +------+ + Reason for Visit + + + | Reason | Comments | + + + | Neurologic Problem | Tonic Clonic seizure disorder | + + + Evaluate & Treat (Urgent) + +--------+ + [...] | | | | | Tonic-clonic | [address] | [address] | | | | | seizure | [address] | [address] | | | | | disorder | CR, | [place], [place] | | | | | ([facility]) | [place] [address] | [address] Phone: | | | | | | Phone: | [phone] | | | | | | [phone] | Fax: | | | | | | Fax: | [phone] | | | | | | [phone] | | + +--------+ + + + + Encounter Details +--------+---------+ + + + | Date | Type | Department | Care Team | Description | +--------+---------+ + + + | 09/26/ | Office | [facility] | Anastasia Argueta, | Probable left sided | | 2020 | Visit | NEUROLOGY [address] | [id number] | Hemicrania continua | | | | [address] | [place], [place] | headache (Primary | | | | [place], [place] | [address] | Dx); Provoked | | | | [address] | [phone] | seizures (HCC); | | | | [phone] | | Neuropathy | +--------+---------+ + + + Social History + +-------+ [...] + + documented as of this encounter Last Filed Vital Signs + + + + + | Vital Sign | Reading | Time Taken | Comments | + + + + + | Blood Pressure | 118/73 | 09/26/2019 11:27 AM | | | | | PST | | + + + + + | Pulse | 78 | 09/26/2019 11:27 AM | | | | | PST | | + + + + + | Temperature | - | - | | + + + + + | Respiratory Rate | - | - | | + + + + + | Oxygen Saturation | 100% | 09/26/2019 11:27 AM | | | | | PST | | + + + + + | Inhaled Oxygen | - | - | | | Concentration | | | | + + + + + | Weight | 60.3 kg (133 lb) | 09/26/2019 11:27 AM | | | | | PST | | + + + + + | Height | 162.6 cm (5' 4") | 09/26/2019 11:27 AM | | | | | PST | | + + + + + | Body Mass Index | 22.83 | 09/26/2019 11:27 AM | | | | | PST | | + + + + + documented in this encounter Functional Status + + + [...] + + documented as of this encounter Patient Instructions Patient Instructions Anastasia Argueta MD - 09/26/2019 11:30 AM PST54 year old woman with hi story of previous alcohol abuse and substance abuse with cessation since Jun 2019 hospital v isit for seizures. These seizures are likely provoked in the setting of substance abuse wit h no recurrence of seizures since discharge. I spoke with patient about low risk of seizure s if we were to wean her off of phenytoin which she was discharged on in Jun 2019. She als o has new type of daily continuous headache on left side with autonomic features as below. She also has balance issues with neuropathy on exam. 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 - Please monitor the side effects. If patient has some side effects but is tolerable other so, advised to continue it. Explained patient that they can stay on the lower dose if it is effective (80-100%) without the need to go up to maximum dose given higher risk of side e ffects at higher dose. If experiencing side effects on higher dose, can stay on lower dose than that (for example- if side effects on 75 mg three times daily, then can stay on 50 mg t hree times daily or on 25 mg three times daily as tolerated). I explained patient that we w ill keep patient on this medication at the lowest effective dose possible for 2-3 months aft er trial period and then plan on weaning it with addition of other anti-inflammatory supplem ents and preventive medications. Explained that in 60% patients, there is no relapse of maryse n after weaning/ stopping medication while 40% patients relapse requiring snf continua tion of medication. I also explained patient that if they need it snf, we will then a dd supplements and other preventive medications to help facilitate wean. - Advised patient to hydrate well and take this medicine with food. Also take omeprazole 20 mg in morning daily when on indomethacin to help prevent gastric side effects. Other saray e effects of indomethacin include constipation, dizziness, fatigue. Rarely GI bleed can occ ur causing black stools or bright red blood in stools and if this happens immediately reduce the dose or stop completely if it happens even on lower dose. - left eye visual issues should get better with headache control. - Seizures- Provoked in setting of substance abuse, on phenytoin 300 mg ER now. Will slowly wean her o ff of phenytoin as her seizures were only in setting of alcohol and substance abuse. - Week 1- Decrease phenytoin dose to 200 mg ER from 300 mg ER - Week 2- Take 100 mg ER - Week 3- stop phenytoin - Neuropathy- - Patient is complaining of balance issues since hospital discharge and on exam has evidenc e of alrge fiber neuropathy (position sense and vibration sense diminished) which can be see n with neuropathy. This neuropathy can be ude to multiple causes including alcohol abuse as it is toxic to nerve fibers. We will do lab work to figure out any other reasons for this neuropathy. - Discussed that phenytoin can also cause balance problems and if it is contributing to bal ance issues, it should get slightly better with weaning off of the medication. - lab work for TSH level, Vitamin B12 level, folate level, vitamin B6 level, SPEP with imm unofixation, hemoglobin a1c level. - Discussed fall precautions. documented in this encounter Progress Notes Anastasia Argueta MD - 09/26/2019 11:30 AM PSTFormatting of this note might be different fro m the original. NEUROLOGY CLINIC INITIAL VISIT NOTES Chief Complaint: Steffi Bishop is a 54 y.o. female referred by RAFFI Ji who comes in for recent [facility] follow up in hospital. She was seen by me in Jun 2019 for seizure and altered mental status. History of Presenting Illness: Steffi is here for follow up after recent seizures in setting of methamphetamine and alcohol abuse in Jun 2019. She mentions that she did not have any further seizures since hospital discharge. Patient has amnesia for all the events during or immediately prior to hospital admission. She has ongoing daily, constant headaches since hospital discharge described wit h below characteristics. She also has some other problems with her balance since hospital d ischarge. Headaches- Onset- Jun 2019 She also started having headaches since she got out of the hospital. Progression of symptoms- Frequency- 31 days/ month, constant Severe headaches - daily superimposed events Headache free time- none Location - left advent area always Character- pounding headaches, throbbing headaches Intensity - 9/10 average Duration - constant Visual symptoms- dark spots for few minutes and blurry vision as well. Was seen by eye doc tor and uses new glasses which is not helping much Associated Symptoms - positive for nausea, no vomiting, light sensitivity, less and rare so und sensitivity, dizziness, rare vertigo. Difficulty concentrating sometimes. Triggers- none Exacerbating factors - bright lights make it worse Alleviating factors - darkness helps, sleep helps Autonomic symptoms -left eye drooping, left side only nasal congestion, left eye redness with severe episodes. Medications- Ibuprofen helps to abort pain sometimes, takes every other day for headaches as she is worried for side effects. Balance problems -Endorses balance problems since she was discharged in hospital. She has near falls and has to catch something sometimes. She denies any numbness in legs or tinging but has some numbness in left lips/ cheek sometimes. She has been taking phenytoin 300 mg ER since hospital discharge for seizures. She feels her memory is not good, she is trying to work on her memory as she has amnesia for events in past around her seizures. She is att ending the AA meetings and working with counselor regularly and she likes working with them and going to the meetings. Review of systems- Review of Systems Constitutional: Negative for chills, fever and malaise/fatigue. HENT: Positive for sinus pain. Negative for ear pain, hearing loss and tinnitus. Eyes: Positive for blurred vision and photophobia. Negative for double vision and pain. Respiratory: Negative for cough and shortness of breath. Cardiovascular: Negative for chest pain, palpitations and leg swelling. Gastrointestinal: Negative for abdominal pain, constipation, diarrhea, nausea and vomiting. Genitourinary: Positive for frequency. Negative for dysuria and urgency. Musculoskeletal: Negative for back pain, falls, joint pain, myalgias and neck pain. Skin: Negative for rash. Neurological: Positive for dizziness, sensory change, weakness and headaches. Negative for tingling, tremors, speech change, focal weakness, seizures () and loss of consciousness. Endo/Heme/Allergies: Does not bruise/bleed easily. Psychiatric/Behavioral: Positive for depression. Negative for memory loss. The patient is n ervous/anxious and has insomnia. Agitation+ Allergies Allergen Reactions Aspirin Other (See Comments) seizure Intolerance No active intolerances/contraindications Current Outpatient Medications: midodrine (PROAMATINE) 10 MG tablet, Take 1 tablet by mouth 3 times daily as needed (f or SBP<90)., Disp: 30 tablet, Rfl: 0 phenytoin (DILANTIN) 300 MG ER capsule, Take 1 capsule by mouth every morning., Disp: 30 capsule, Rfl: 0 sertraline (ZOLOFT) 25 mg tablet, Take 1 tablet by mouth Daily., Disp: 30 tablet, Rfl: 0 thiamine (VITAMIN B-1) 100 mg tablet, Take 1 tablet by mouth Daily., Disp: 30 tablet, Rfl: 0 Past Medical History: Diagnosis Date Alcohol abuse Depression Drug abuse (HCC) methamphetamine and MDMA Generalized tonic-clonic seizure (HCC) 06/22/2019 PTSD (post-traumatic stress disorder) Status epilepticus (HCC) 06/22/2019 Family History: Mother- not sure/ cannot recall Father- in car wreck Socioeconomic History Marital status: Single Number of children: 3, 2 sons and daughter , lives with daughter in [facility] Highest education level: GED with some college occupational History Not working Tobacco Use Smoking status: Former Smoker, quit 30 years ago Substance and Sexual Activity Alcohol use: Stopped since Jun 2019 Drug use: Methamphetamine intermittently, stopped since Jun 2019 Physical Exam- Vitals: Vitals: 09/26/19 1127 BP: 118/73 Pulse: 78 PainSc: 8 Detailed Neurologic Exam: Mental Status: Alert, oriented to person, place Speech: Is normal; fluent and spontaneous Cranial Nerves: pupils are round,equal and both reactive to light, visual ferris intact in all qudarants, left eye drooping compared to right eye, Extraocular movements are intact. Sy mmetric eyebrow rise, facial sensation is intact. Face is symmetric. Hearing intact to finge r rub both sides, symmetric normal shoulder shrug. Tongue is midline Fundoscopic Exam: Pupils constricted and difficult to visualize Tone: Normal muscle tone. Strength: Strength is 5/5 in the upper and lower limbs. Light Touch: Normal light touch sensation in upper and lower extremities. Cold temp: normal in all extremities Proprioception: slightly diminished in big toes Vibration: absent at big toes, decreased at ankles bilaterally Romberg: Positive with swaying Coordination: Normal finger to nose. Reflexes: Normal and symmetric bilaterally at 2 in upper and lower extremities, trace at an kles bilaterally Gait: Unremarkable, difficulty to walk on toes, heels and tandem Previous work up - CT head- FINDINGS: Brain: No intracranial hemorrhage is present. No mass is evident. Calero-white differentiation appears intact. No CT evidence of acute infarct is evident. Ventricles and extra-axial fluid spaces: Ventricles are stable in size. Paranasal sinuses and mastoid air cells: Severe left maxillary sinus opacification is noted, partially imaged previously. Mild mucosal thickening is present in the right maxillary sinus. Concavity of the left lamina papyracea is again noted. Mastoids remain clear. Calvarium and extracranial soft tissues: Stable. Orbits: Left cataract surgery. IMPRESSION: 1. No acute intracranial findings. 2. Severe left maxillary sinus opacification. Assessment: 54 year old woman with history of previous alcohol abuse and substance abuse with remission is here for follow up since Jun 2019 hospital visit for seizures. These seizures are likel y provoked in the setting of substance abuse with no recurrence of seizures since discharge. I spoke with patient about low risk of seizures if we were to wean her off of phenytoin wh ich she was discharged on in Jun 2019. She also has new type of daily continuous headache on left side with autonomic features as below with onset or felt since discharge. She also has balance issues with neuropathy findings on exam. Impression- 1. 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 Provoked seizures 3. 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 - Please monitor the side effects. If patient has some side effects but is tolerable other so, advised to continue it. Explained patient that they can stay on the lower dose if it is effective (80-100%) without the need to go up to maximum dose given higher risk of side e ffects at higher dose. If experiencing side effects on higher dose, can stay on lower dose than that (for example- if side effects on 75 mg three times daily, then can stay on 50 mg t hree times daily or on 25 mg three times daily as tolerated). I explained patient that we w ill keep patient on this medication at the lowest effective dose possible for 2-3 months aft er trial period and then plan on weaning it with addition of other anti-inflammatory supplem ents and preventive medications. Explained that in 60% patients, there is no relapse of maryse n after weaning/ stopping medication while 40% patients relapse requiring machine long goods helper continua tion of medication. I also explained patient that if they need it snf, we will then a dd supplements and other preventive medications to help facilitate wean. - Advised patient to hydrate well and take this medicine with food. Also take omeprazole 20 mg in morning daily when on indomethacin to help prevent gastric side effects. Other saray e effects of indomethacin include constipation, dizziness, fatigue. Rarely GI bleed can occ ur causing black stools or bright red blood in stools and if this happens immediately reduce the dose or stop completely if it happens even on lower dose. - left eye visual issues should get better with headache control. - Seizures- Provoked in setting of substance abuse, on phenytoin 300 mg ER now. Will slowly wean her o ff of phenytoin as her seizures were only in setting of alcohol and substance abuse. - Week 1- Decrease phenytoin dose to 200 mg ER from 300 mg ER - Week 2- Take 100 mg ER - Week 3- stop phenytoin - Neuropathy- - Patient is complaining of balance issues since hospital discharge and on exam has evidenc e of large fiber neuropathy (position sense and vibration sense diminished) which can be see n with neuropathy. This neuropathy can be due to multiple causes including alcohol abuse as it is toxic to nerve fibers. We will do lab work to look out any other reasons for this ne uropathy. - Discussed that phenytoin can also cause balance problems and if it is contributing to bal ance issues, it should get slightly better with weaning off of the medication. - lab work for TSH level, Vitamin B12 level, folate level, vitamin B6 level, SPEP with imm unofixation, hemoglobin a1c level. - Discussed fall precautions. Follow up: 2 months documented in this en counter Plan of Treatment + + +--------+ + + | Name | Type | Priori | Associated Diagnoses | Order Schedule | | | | ty | | | + + +--------+ + + | POCT Hemoglobin A1c | Point of | Routin | Neuropathy | Ordered: 09/26/2019 | | | Care | e | | | | | Testing | | | | + + +--------+ + + | Vitamin B-12 and | Lab | Routin | Neuropathy | 1 Occurrences | | Folate | | e | | starting 09/26/2019 | | | | | | until 09/26/2020 | + + +--------+ + + | Vitamin B-6 | Lab | Routin | Neuropathy | 1 Occurrences | | | | e | | starting 09/26/2019 | | | | | | until 09/26/2020 | + + +--------+ + + | Monoclonal | Lab | Routin | Neuropathy | 1 Occurrences | | Protein,SerumSPEP,IF | | e | | starting 09/26/2019 | | E,IgA/G/M | | | | until 09/26/2020 | + + +--------+ + + | TSH | Lab | Routin | Neuropathy | 1 Occurrences | | | | e | | starting 09/26/2019 | | | | | | until 09/26/2020 | + + +--------+ + + | Treponema Pallidum | Lab | Routin | Neuropathy | 1 Occurrences | | Ab, Reflex | | e | | starting 09/26/2019 | | | | | | until 09/26/2020 | + + +--------+ + + documented as of this encounter Visit Diagnoses + + | Diagnosis | + + | Probable left sided Hemicrania continua headache - Primary Hemicrania continua | + + | Provoked seizures (HCC) Other convulsions | + + | Neuropathy Mononeuritis of unspecified site | + + documented in this encounter
--- OUTSIDE RECORDS SUMMARY | ~2020-05-24 | XMS | Encounter Summary ---
Demographics + + + | Address | [address] [place] [address] | | | [place] [address] | + + + | Home Phone | | + + + | Preferred Language | Unknown | + + + | Marital Status | Single | + + + | Jainism Affiliation | 1041 | + + + | Race | or | + + + | Ethnic Group | Not or | + + + Author + + + | Author | [facility] | | | and [place] | + + + | Organization | [facility] | | | [...] Team Providers + +------+ + | Care Broach Operator Name | Role | Phone | + +------+ + | Anat Pickett | PCP | | + +------+ + Reason for Visit + +--------+ + | Reason | Onset | Comments | | | Date | | + +--------+ + | Medical Follow Up | 10/03/ | | | | 2020 | | + +--------+ + Encounter Details +--------+ + + + + | Date | Type | Department | Care Team | Description | +--------+ + + + + | 10/03/ | Telephone | [facility] | Keenan Holland, | Medical Follow Up | | 2019 | | NEUROLOGY [address] | Systems Analysis Manager | | | | | [address] | | | | | | [place], [place] | | | | | | [address] | | | | | | [phone] | | | +--------+ + + + [...] Miscellaneous Notes Telephone Encounter - Keenan Holland, Systems Analysis Manager - 10/03/2019 12:17 PM PSTTried call ing pt at [phone], she didn't answered. Called [phone] and left message to have he r call us back. documented in this encounter Plan of Treatment Not on filedocumented as of this encounter Visit Diagnoses Not on filedocumented in this encounter"
--- OUTSIDE RECORDS SUMMARY | ~2020-05-24 | XMS | Encounter Summary ---
Demographics + + + | Address | [address] [place] [address] | | | [place] [address] | + + + | Home Phone | | + + + | Preferred Language | Unknown | + + + | Marital Status | Single | + + + | Advent Affiliation | 1041 | + + + [...] Team Providers + +------+ + | Care Business Sales Consultant Name | Role | Phone | + +------+ + | Anat Pickett | PCP | | + +------+ + Reason for Visit + +--------+ + | Reason | Onset | Comments | | | Date | | + +--------+ + | Confirmation | 11/08/ | | | | 2020 | | + +--------+ + Encounter Details +--------+ + + + + | Date | Type | Department | Care Team | Description | +--------+ + + + + | 11/08/ | Telephone | [facility] | Keenan Holland, | Confirmation | | 2020 | | NEUROLOGY [address] | Residential Roofer Helper | | | | | [address] | | | | | | [place], [place] | | | | | | [address] | | | | | | [phone] | | | +--------+ + + + [...] Miscellaneous Notes Telephone Encounter - Keenan Holland Residential Roofer Helper - 11/09/2019 12:24 PM PSTConfirmed appt with Daughter and left message on [employer] mobile. documented in this encounter Plan of Treatment Not on filedocumented as of this encounter Visit Diagnoses Not on filedocumented in this encounter"
--- OUTSIDE RECORDS SUMMARY | ~2020-05-24 | XMS | Encounter Summary ---
Demographics + + + | Address | [address] [place] [address] | | | [place] [address] | + + + | Home Phone | | + + + | Preferred Language | Unknown | + + + | Marital Status | Single | + + + | Rastafari Affiliation | 1041 | + + + | Race | or | + + + | Ethnic Group | Not or | + + + Author + + + | Author | [facility] | | | and [place] | + + + | Organization | [facility] | | [...] Providers + +------+ + | Care Business Support Name | Role | Phone | + [...] Provider Unknown | | | | | [place], [place] | [phone] | | | | | [address] | | | | | | [phone] | | | +--------+ + + + [...]
--- OUTSIDE RECORDS SUMMARY | ~2020-05-24 | XMS | Encounter Summary ---
Demographics + + + | Address | [address] [place] [address] | | | [place] [address] | + + + | Home Phone | | + + + | Preferred Language | Unknown | + + + | Marital Status | Single | + + + | Hindu Affiliation | 1041 | + + + | Race | or | + + + | Ethnic Group | Not or | + + + Author + + + | Author | [facility] | | | and [place] | + + + | Organization | [facility] | | | [...] Team Providers + +------+ + | Care Cleaner Carpet And Upholstery Name | Role | Phone | + [...] | | | | | Tonic-clonic | [address] | [address] | | | | | seizure | [address] | [address] | | | | | disorder | [address], | [place], [place] | | | | | ([facility]) | [place] [address] | [address] Phone: | | | | | | Phone: | [phone] | | | | | | [phone] | Fax: | | | | | | Fax: | [phone] | | | | | | [phone] | | + +--------+ + + + + Encounter Details +--------+ + + + + | Date | Type | Department | Care Team | Description | +--------+ + + + + | 12/03/ | Virtual | [facility] | Anastasia Argueta, | Seizure disorder | | 2020 | Office | NEUROLOGY [address] | [address] | ([facility]) (Primary Dx); | | | Visit | [address] | [place], [place] | Chronic migraine; | | | | [place], [place] | [address] | History of alcohol | | | | [address] | [phone] | abuse | | | | [phone] | | | +--------+ + + + [...] side effects. Clinical discussion length: 21-30 min ([id number]) Patient has not been seen in office [...] alcohol use. Patient was ad mitted to [facility] in June 2019 with status epilepticus [...]
--- OUTSIDE RECORDS SUMMARY | ~2020-05-24 | XMS | Encounter Summary ---
Demographics + + + | Address | [address] [place] [address] | | | [place] [address] | + + + | Home Phone | | + + + | Preferred Language | Unknown | + + + | Marital Status | Single | + + + | Yazidism Affiliation | [id number] | + + + [...] Team Providers + +------+ + | Care Vaccines Solutions Specialist Name | Role | Phone | + +------+ + | Anat Pickett | PCP | | + +------+ + Reason for Visit + + + | Reason | Comments | + + + | Follow-up | Seizures | + + + Evaluate & Treat [...] | | | | | Tonic-clonic | [address] | [address] | | | | | seizure | [address] | [place] | | | | | disorder | CR, | [place], [place] | | | | | ([facility]) | [place] [address] | [address] Phone: | | | | | | Phone: | [phone] | | | | | | [phone] | Fax: | | | | | | Fax: | [phone] | | | | | | [phone] | | + +--------+ + + + + Encounter Details +--------+---------+ + + + | Date | Type | Department | Care Team | Description | +--------+---------+ + + + | 11/09/ | Office | [facility] | Anastasia Argueta, | Chronic migraine | | 2020 | Visit | NEUROLOGY [address] | MD Alexander JAMES | (Primary Dx); | | | | [address] | [place], [place] | Neuropathy | | | | [place], [place] | [address] | | | | | [address] | [phone] | | | | | [phone] | | | +--------+---------+ + + + Social History [...] + + + | Blood Pressure | 102/73 | 11/10/2019 10:14 AM | | | | | PST | | + + + + + | Pulse | 66 | 11/10/2019 10:14 AM | | | | | PST | | + + + + + | Temperature | - | - | | + + + + + | Respiratory Rate | - | - | | + + + + + | Oxygen Saturation | 98% | 11/10/2019 10:14 AM | | | | | PST | | + + + + + | Inhaled Oxygen | - | - | | | Concentration | | | | + + + + + | Weight | 60.3 kg (133 lb) | 11/10/2019 10:14 AM | | | | | PST | | + + + + + | Height | 162.6 cm (5' 4") | 11/10/2019 10:14 AM | | | | | PST | | + + + + + | Body Mass Index | 22.83 | 11/10/2019 10:14 AM | | | | | PST [...] Instructions Patient Instructions Anastasia Argueta MD - 11/10/2019 9:30 AM Sanna Bishop is a 54 year old patient with history of alcohol abuse in past with neuropathy, balance issues and 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 She has not responded to the indomethacin trial as she comp lained of left sided only headache in past but now mentions that pain is bilateral and migra inous in nature. I explained her that neuropathy issues are most likely related to alcohol abuse in past and that it will be stable without progressing if she is in remission from dr menezes. Discussed to work with PCP for assistive device. Recommendations: We have discussed the following treatment plan today Acute treatment plan: - Recommend to try Aleve 220 mg (2 tab) at onset of severe migraine. Limit to 2 days/week use to avoid to rebound headaches. - Recommend to take ondansetron 8 mg along with Boswellia 800 mg (amazon or supplement) com bination up to every 12 hours as needed. This helps the headache intensity and is safe Preventive treatment plan: Take these medications daily - Start propranolol 10 mg twice daily and then after 2 weeks if tolerating well without si de effects increase to 20 mg twice daily. Further dose increase can be done at next appoint ment. Explained patient common side effects including dizziness, lightheadedness, rarely ca uses worsening of depression and insomnia. I explained to patient that effect of preventive medications may take from 4 to 6 weeks. Additional therapies: - Discussed using assistive devices for balance issues. Follow Up In 2-3 months or sooner if any new problems related to headache management arise.Electronic ally signed by Anastasia Argueta MD at 11/10/2019 10:07 AM PST documented in this encounter Progress Notes Anastasia Argueta MD - 11/10/2019 9:30 AM PSTFormatting of this note might be different fro m the original. NEUROLOGY CLINIC FOLLOW-UP VISIT IDENTIFICATION DATA/CHIEF COMPLAINT: Steffi Bishop is a pleasant 54 y.o. with history of headaches and provoked seizures in [facility] of drug use here today for follow up visit. Last Visit: HPI: She has ongoing daily, constant left sided headaches with autonomic features since hospital discharge for provoked seizures in Jun 2019. 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 Her phenytoin was weaned off in last visit as this was start ed for provoked seizures. Did lab work for neuropathy as she had balance issues since disch arge. But has significant alcohol abuse in past. INTERVAL HISTORY: She mentions that her balance continues to be bad since last visit. Her neuropathy work up has returned negative but most likely cause is alcohol abuse in past. She is working with PCP for assistive device need. She continues to have daily headaches despite indomethacin t rial at 75 mg TID and now endorses bilateral oriental orthodox pain rather than left unilateral pain. She has migraine features as well to these headaches. She denies any further seizures or lo ss of awareness episodes or confusion spells. Review of Systems All other systems are reviewed and negative except as stated in Interval History Current Outpatient Medications on File Prior to Visit Medication Sig Dispense Refill indomethacin (INDOCIN) 25 mg capsule Take 3 capsules by mouth 3 times daily (with meals ). 25 mg thrice daily for 3 days, 50 mg thrice daily for 3 days and then 75 mg thrice daily after 180 capsule 1 midodrine (PROAMATINE) 10 MG tablet Take 1 tablet by mouth 3 times daily as needed (for SBP<90). 30 tablet 0 omeprazole (PRILOSEC) 20 mg TBEC Take 1 tablet by mouth every morning (before breakfast ). 30 each 1 sertraline (ZOLOFT) 25 mg tablet Take 1 tablet by mouth Daily. 30 tablet 0 thiamine (VITAMIN B-1) 100 mg tablet Take 1 tablet by mouth Daily. 30 tablet 0 No current facility-administered medications on file prior to visit. Allergies, Past Medical History, Problem List, Family history and Social history reviewed p [facility]. Physical Exam: There were no vitals taken for this visit. 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 She has not responded to the indo methacin trial as she complained of left sided only headache in past but now mentions that p ain is bilateral and migrainous in nature. I explained her that neuropathy issues are most likely related to alcohol abuse in past and that it will be stable without progressing if sh e is in remission from drinking. Discussed to work with PCP for assistive device. Recommendations: We have discussed the following treatment plan today Acute treatment plan: - Recommend to try Aleve 220 mg (2 tab) at onset of severe migraine. Limit to 2 days/week use to avoid to rebound headaches. - Recommend to take ondansetron 8 mg along with Boswellia 800 mg (amazon or supplement) com bination up to every 12 hours as needed. This helps the headache intensity and is safe Preventive treatment plan: Take these medications daily - Start propranolol 10 mg twice daily and then after 2 weeks if tolerating well without si de effects increase to 20 mg twice daily. Further dose increase can be done at next appoint ment. Explained patient common side effects including dizziness, lightheadedness, rarely ca uses worsening of depression and insomnia. I explained to patient that effect of preventive medications may take from 4 to 6 weeks. Additional therapies: - Discussed using assistive devices for balance issues. Follow Up In 2-3 months or sooner if any new problems related to headache management arise. documented in this en counter Plan of Treatment Not on filedocumented as of this encounter Visit Diagnoses + + | Diagnosis | + + | Chronic migraine - Primary Chronic migraine without aura, without mention of | | intractable migraine without mention of status migrainosus | + + | Neuropathy Mononeuritis of unspecified site | + + documented in this encounter
--- OUTSIDE RECORDS SUMMARY | ~2020-05-24 | XMS | Encounter Summary ---
Demographics + + + | Address | [address] [place] [address] | | | [place] [address] | + + + | Home Phone | | + + + | Preferred Language | Unknown | + + + | Marital Status | Single | + + + | Buddhism Affiliation | 1041 | + + + | Race | or | + + + | Ethnic Group | Not or | + + + Author + + + | Author | [facility] | | | and [place] | + + + | Organization | [facility] | | | and [...] Team Providers + +------+ + | Care Asbestos Cloth Inspector Name | Role | Phone | + +------+ + | Anat Pickett | PCP | | + +------+ + Reason for Visit + +--------+ + | Reason | Onset | Comments | | | Date | | + +--------+ + | Appointment | 09/22/ | | | | 2020 | | + +--------+ + Encounter Details +--------+ + + + + | Date | Type | Department | Care Team | Description | +--------+ + + + + | 09/22/ | Telephone | [facility] | Keenan Holland, | Appointment | | 2019 | | NEUROLOGY [address] | Radiological Health Specialist | | | | | [address] | | | | | | [place], [place] | | | | | | [address] | | | | | | [phone] | | | +--------+ + + + [...] Miscellaneous Notes Telephone Encounter - Keenan Holland, Radiological Health Specialist - 09/22/2019 12:30 PM PST#2 Call- L eft message for pt to call us back to confirm. documented in this encounter Plan of Treatment Not on filedocumented as of this encounter Visit Diagnoses Not on filedocumented in this encounter"
--- OUTSIDE RECORDS SUMMARY | ~2020-05-24 | XMS | Encounter Summary ---
Demographics + + + | Address | [address] [place] [address] | | | [place] [address] | + + + | Home Phone | | + + + | Preferred Language | Unknown | + + + | Marital Status | Single | + + + | Yazdanism Affiliation | 1041 | + + + | Race | or | + + + | Ethnic Group | Not or | + + + Author + + + | Author | [facility] | | | and [place] | + + + | Organization | [facility] | | | and [...] Team Providers + +------+ + | Care Service Station Manager Name | Role | Phone | [...] Provider Unknown | | | | | [place], [place] | [phone] | | | | | [address] | | | | | | [phone] | | | +--------+ + + + [...]
--- OUTSIDE RECORDS SUMMARY | ~2020-05-24 | XMS | Encounter Summary ---
Demographics + + + | Address | [address] [place] [address] | | | [place] [address] | + + + | Home Phone [...] Team Providers + +------+ + | Care Armored Machine Operator Name | Role | Phone | + +------+ + | Anat Pickett | PCP | | + +------+ + Reason for Visit + +--------+ + | Reason | Onset | Comments | | | Date | | + +--------+ + | Medication Question | 10/02/ | | | | 2020 | | + +--------+ + Encounter Details +--------+ + + + + | Date | Type | Department | Care Team | Description | +--------+ + + + + | 10/02/ | Telephone | [facility] | Anastasia Argueta, | Medication Question | | 2019 | | NEUROLOGY [address] | MD Alexander JAMES | | | | | [address] | [place], [place] | | | | | [place], [place] | [address] | | | | | [address] | [phone] | | | | | [phone] | | | +--------+ + + + [...] Miscellaneous Notes Telephone Encounter - Keenan Holland, Mechanical Integrity Engineer - 10/03/2019 12:19 PM PSTI tried sera th numbers on file and left message for her to call us. elephone Encounter - Anastasia Argueta MD - 0 10/03/2019 11:30 AM PSTKali, Tried calling her as she called and reported side effects to medication I prescribed. Can you try and check with her and let me know if she answers. Thanks Salimaectronically signed by Anastasia Argueta MD at 10/03/2019 11:30 AM PSTTelephone Anastasia Torres MD - 10/03/2019 10:52 AM PSTCalled multiple times and no answer. Lef t message to leave us appropriate time and date to call her. Thanks Ellie elephone Anastasia Ly MD - 10/02/2019 1:45 PM PSTWill doo elephone Encounter - Maci Dai - 09/07 12:07 PM PSTJuliadore, is calling regarding Medication Question and would like a call back. Additional Call Details: Patient sated she might be having a reaction to medication and is requesting call back to see if things are normal If this is a symptom based call, was patient offered triage? Not Applicable If this is a symptom based call and you were unable to immediately transfer the call to a theodora flores lead vulcanizing operator was caller made aware that if at any time she feels it is an emergency they sh ou call 911 or go to the nearest emergency room? not applicable documented in this encounter Plan of Treatment Not on filedocumented as of this encounter Visit Diagnoses Not on filedocumented in this encounter"
--- OUTSIDE RECORDS SUMMARY | ~2020-05-24 | XMS | Encounter Summary ---
Demographics + + + | Address | [address] [place] [address] | | | [place] [address] | + + + | Home Phone [...] Author + + + | Author | [facility] | | | and [place] | + + + | Organization | [facility] | | | [...] Team Providers + +------+ + | Care Central Office Mechanic Name | Role | Phone | + +------+ + PCP | Unavailable | + +------+ + Encounter Details +--------+ + + + + | Date | Type | Department | Care Team | Description | +--------+ + + + + | 09/01/ | Hospital | [facility] | Nivia Liriano Julia, | Tox Eff Nonmed Subst | | 2009 - | Encounter | [facility] | MD Nadine CHRISTIE | | | | | CLINICAL DECISION | [place], | | | 05/09/ | | [address] | [place] [address] | | | 2008 | | [place], [place] | [phone] | | | | | [address] | | | | | | [phone] | Eleanor Young, | | | | | | [address] | | | | | | [place] [address] | | | | | | [phone] | | | | | | | | +--------+ + + + [...] XR CHEST 1 VIEW | Routin | 05/08/2009 | | Results for this | | | e | 4:54 AM | | procedure are in the | | | | PDT | | results section. | + +--------+ + + + | XR CHEST 1 VIEW | Routin | 05/07/2009 | | Results for this | | | e | 2:00 AM | | procedure are in the | | | | PDT | | results section. | + +--------+ + + + documented in this encounter Results XR Chest 1 Vw (05/08/2009 4:54 AM PDT) + + | Specimen | + + | | + + + + + | Narrative | Performed At | + + + | [id number] | | | Page 1 RADIOLOGY | | | [facility] / | | | [facility] NAME: [place] [address] | | | | | | | | | DATE OF : 1965 ORDER NUMBER: [id number] | | | EXAM DATE/TIME: 05/08/2009 05:00 A ORDERING PHYSICIAN: | | | CHIN RESTREPO ORDER DETAIL: [id number] / / HDI EXAM | | | DESCRIPTION: XR CHEST 1 VIEW | | | | | | ONE-VIEW CHEST 05/08/2009 HISTORY Evaluate lines and tubes. | | | TECHNIQUE Portable AP upright view of the chest was obtained. | | | COMPARISON Compared to prior examination dated 05/07/2009. | | | FINDINGS There has been interval removal of the endotracheal tube, | | | nasogastric tube, and right internal jugular central venous catheter. | | | There is a left-sided PICC line catheter with its tip located at the | | | superior vena cava/right atrial junction. The heart is stable in | | | size. There is redemonstration of central vascular prominence, | | | slightly increased when compared to the prior examination and may be | | | on the basis of suboptimal inspiration. There is increasing | | | predominantly linear opacity seen within the right lung base with | | | persistent retrocardiac opacity that may represent atelectasis or | | | airspace disease. Underlying small pleural effusions cannot be | | | excluded. IMPRESSION 1. Mild pulmonary vascular congestion | | | with slight interval worsening of central vascular prominence | | | that may be on the basis of suboptimal inspiration. 2. | | | Increasing right lung base opacities that may represent | | | atelectasis/airspace disease. Small pleural effusion cannot be | | | excluded. There is persistent retrocardiac opacity seen on the left | | | side. Read by TONE ELLISON DO 05/08/2009 07:39 A | | | Electronically Signed by TONE ELLISON DO 05/08/2009 09:25 P DD: | | | 05/08/2009 07:39 A A [facility]/kenneth/[id number]/ | | | cc: MD TONE PADRON DO | | | MD JASON DE LA ROSA MD | | | ERIN WATKINS MD | | + + + + + | Procedure Note | + + | Maximus Bass - 05/01/2019 5:22 AM PDT | | [id number] Page 1 | | RADIOLOGY [facility] / | | I/P | | [facility] NAME: SATHYA CUETO | | [place] [address] | | | | DATE OF : 1965 | | | | ORDER NUMBER: [id number] | | EXAM DATE/TIME: 05/08/2009 05:00 A | | ORDERING PHYSICIAN: CHIN RESTREPO | | ORDER DETAIL: [id number] / / HDI | | EXAM DESCRIPTION: XR CHEST 1 VIEW | | | | ONE-VIEW CHEST 05/08/2009 | | | | HISTORY | | Evaluate lines and tubes. | | | | TECHNIQUE | | Portable AP upright view of the chest was obtained. | | | | COMPARISON | | Compared to prior examination dated 05/07/2009. | | | | FINDINGS | | There has been interval removal of the endotracheal tube, nasogastric | | tube, and right internal jugular central venous catheter. There is a | | left-sided PICC line catheter with its tip located at the superior vena | | cava/right atrial junction. | | | | The heart is stable in size. There is redemonstration of central | | vascular prominence, slightly increased when compared to the prior | | examination and may be on the basis of suboptimal inspiration. There is | | increasing predominantly linear opacity seen within the right lung base | | with persistent retrocardiac opacity that may represent atelectasis or | | airspace disease. Underlying small pleural effusions cannot be excluded. | | | | | | IMPRESSION | | 1. Mild pulmonary vascular congestion with slight interval worsening of | | central vascular prominence that may be on the basis of suboptimal | | inspiration. | | 2. Increasing right lung base opacities that may represent | | atelectasis/airspace disease. Small pleural effusion cannot be | | excluded. There is persistent retrocardiac opacity seen on the left | | side. | | | | | | Read by | | TONE ELLISON DO 05/08/2009 07:39 A | | Electronically Signed by | | TONE ELLISON DO 05/08/2009 09:25 P | | | | A | | A | | [facility]//[id number]/ | | cc: CHIN RESTREPO MD | | TONE ELLISON DO | | ELEANOR YOUNG MD | | JASON COX MD | | ERIN WATKINS MD | + + XR Chest 1 Vw (05/07/2009 2:00 AM PDT) + + | Specimen | + + | | + + + + + | Narrative | Performed At | + + + | [id number] | | | Page 1 RADIOLOGY | | | [facility] / | | | [facility] | | [facility] [place] [address] | | | | | | | | | DATE OF : 1965 ORDER NUMBER: [id number] | | | EXAM DATE/TIME: 05/07/2009 01:03 A ORDERING PHYSICIAN: RONN | | | ELEANOR Horton ORDER DETAIL: 6980 / / HDI EXAM DESCRIPTION: XR CHEST | | | 1 VIEW | | | | | | ONE VIEW CHEST 05/07/2009 HISTORY Shotness of breath. | | | TECHNIQUE Single AP portable view of the chest was obtained. | | | FINDINGS The heart is not enlarged. There is a nasogastric tube seen | | | coursing below the diaphragm. There is a right IJ central venous | | | catheter with its tip located in the region of the right atrium. | | | There is an endotracheal tube with its tip coursing in the proximal | | | aspect of the right mainstem bronchus. There is hilar fullness with | | | pulmonary vascular congestion with parenchymal edema. There is no | | | sizeable pleural effusion. There is a nodular type density seen | | | within the left lung base that likely represents summation artifact | | | from a rib, overlying tubing, and prominent interstitial markings. | | | This may be further evaluated on follow-up radiograph. IMPRESSION | | | 1. Hilar prominence with pulmonary vascular congestion and | | | interstitial edema. Underlying adenopathy is not excluded and | | | continue followup is recommended. 2. Endotracheal tube with its | | | tip located in the region of the right mainstem bronchus. The | | | nurse was notified on 05/07/2009 at 0715 hours. Read by | | | TONE ELLISON DO 05/07/2009 07:07 A Electronically Signed by TONE Iraheta | | Rimma ELLISON DO 05/07/2009 10:35 P A DT: | | | 05/07/2009 02:54 P [facility]/[id number]/ cc: TONE ELLISON DO | | | MD ERIN DE LA ROSA MD | | + + + + + | Procedure Note | + + | Maximus Bass - 05/01/2019 5:22 AM PDT | | [id number] Page 1 | | RADIOLOGY [facility] / | | I/P | | [facility] NAME: SATHYA CUETO | | [place] [address] | | | | DATE OF : 1965 | | | | ORDER NUMBER: [id number] | | EXAM DATE/TIME: 05/07/2009 01:03 A | | ORDERING PHYSICIAN: ELEANOR YOUNG | | ORDER DETAIL: [id number] / / HDI | | EXAM DESCRIPTION: XR CHEST 1 VIEW | | | | ONE VIEW CHEST 05/07/2009 | | | | HISTORY | | Shotness of breath. | | | | TECHNIQUE | | Single AP portable view of the chest was obtained. | | | | FINDINGS | | The heart is not enlarged. There is a nasogastric tube seen coursing | | below the diaphragm. There is a right IJ central venous catheter with | | its tip located in the region of the right atrium. There is an | | endotracheal tube with its tip coursing in the proximal aspect of the | | right mainstem bronchus. There is hilar fullness with pulmonary vascular | | congestion with parenchymal edema. There is no sizeable pleural | | effusion. There is a nodular type density seen within the left lung base | | that likely represents summation artifact from a rib, overlying tubing, | | and prominent interstitial markings. This may be further evaluated on | | follow-up radiograph. | | | | IMPRESSION | | 1. Hilar prominence with pulmonary vascular congestion and interstitial | | edema. Underlying adenopathy is not excluded and continue followup is | | recommended. | | 2. Endotracheal tube with its tip located in the region of the right | | mainstem bronchus. The nurse was notified on 05/07/2009 at 0715 | | hours. | | | | | | Read by | | TONE ELLISON DO 05/07/2009 07:07 A | | Electronically Signed by | | TONE ELLISON DO 05/07/2009 10:35 P | | | | A | | P | | [facility]/[id number]/ | | cc: TONE ELLISON DO | | ELEANOR YOUNG MD | | ERIN WATKINS MD | + + documented in this encounter Visit Diagnoses + + | Diagnosis | + + | Toxic effect of unspecified substance, chiefly nonmedicinal as to source(989.9) Toxic | | effect of unspecified substance, chiefly nonmedicinal as to source | + + documented in this encounter"
--- OUTSIDE RECORDS SUMMARY | ~2020-05-24 | XMS | Encounter Summary ---
Demographics + + + | Address | [address] [place] [address] | | | [place] [address] | + + + | Home Phone | | + + + | Preferred Language | Unknown | + + + | Marital Status | Single | + + + | Orthodoxy Affiliation | 1041 | + + + | Race | or | + + + | Ethnic Group | Not or | + + + Author + + + | Author | [facility] | | | and [place] | + + + | Organization | [facility] | | | and [...] Team Providers + +------+ + | Care Violin Mechanic Name | Role | Phone | + +------+ + | Anat Pickett | PCP | | + +------+ + Reason for Visit Auth/Cert +--------+--------+ + + + + | Status | Reason | Specialty | Diagnoses / | Referred By | Referred To | | | | | Procedures | Contact | Contact | +--------+--------+ + + + + | | | | Diagnoses | | | | | | | Status | | | | | | | Epilepticus | | | +--------+--------+ + + + + Encounter Details +--------+ + + + + | Date | Type | Department | Care Team | Description | +--------+ + + + + | 12/21/ | Hospital | [facility] | GonzalobraulioGabe mann | Status epilepticus | | 2019 - | Encounter | [facility] | MD Evelio Jeff | ([facility]) | | | | CARE FLOOR [phone] [place], [place] | | | 12/24/ | | [address] | [address] | | | 2019 | | [place], [place] | | | | | | [address] | Erika Myers | | | | | [phone] | MD Evelio Dodson | | | | | | [address] | | | | | | [place] [address] | | | | | | [phone] | | | | | | | | | | | | Jerome Quintanilla MD | | | | | | [address] | | | | | | [place] [address] | | | | | | [phone] | | | | | | | | | | | | Moreno Juares MD | | | | | | [address] | | | | | | [place] [address] | | | | | | [phone] | | | | | | | [...] documented as of this encounter Discharge Summaries Taty Oseguera RN - 12/25/2019 1:13 PM PDTPatient discharged home via private vehicle w ith daughter. AVS explained and given to patient, 3 RX given to patient. All belongings with patient at time of discharge. 1 :14 PM Moreno Carrasco MD - 12/25/2019 11:24 AM PDTFormatting of this note might be diffe rent from the original. [facility] Service: Hospitalist Discharge Summary Date of Admission: 12/22/2019 Date of Discharge: 12/25/2019 Discharge Provider: Moreno Juares MD Treatment Team: Pérez Palu MD Discharge Diagnoses: Principal Problem: Seizure disorder Active Problems: Smoker History of alcohol abuse Chronic hepatitis C without hepatic coma History of posttraumatic stress disorder (PTSD) MDMA abuse BRIEF HISTORY OF PRESENTATION/HOSPITAL COURSE: Steffi Bishop is a 54 y.o. female with history of seizure disorder, prior alcohol use cl aims to have a been sober for the past 5 months, history of chronic hepatitis C, PTSD/depres bertram, history of drug abuse who was admitted because of seizure activity that required intub ation. Patient required ICU stay. On admission, the patient did receive IV loading dose of Keppra and multiple doses of benzodiazepines. Eventually, she became medically stable and was transferred to the medical floor. Neurology was consulted and increase the dose of Kepp ra to 750 mg twice a day. Patient was thought to have aspiration pneumonia versus community -acquired pneumonia and was covered with Rocephin and Zithromax from outside facility prior to admission. Patient was switch over to p.o. Levaquin and was given 10 more days worth of antibiotic. MRSA screen was negative. Her acute respiratory failure with hypoxia most like ly secondary to active seizure resolved. On the day of discharge, the patient was at room a ir. Her CIWA scores have been low. She was continued on thiamine and folic acid. On the day of discharge, patient was observed working with physical therapy. Although she was a li ttle bit unsteady, she was able to walk several feet. Physical therapy recommended home wit h assistance. Also, her mental status significantly improved. She was oriented x3 on the d ay of discharge. Patient was advised to follow-up with primary care physician for a recheck of her pneumonia and to have a Keppra level recheck in 1 week prior to the morning dose. A lso, she was advised to avoid driving any kind of vehicle, bathing alone, go swimming by her self, and other risky activities. This was also explained to the patient's family member. Both understood. She will need to follow-up with her neurologist, Dr. Middleton in 2 weeks. Clinically, the patient remained stable and improved. He was seen performing her own ADLs, ambulatory and independent. The rest of her hospital stay was unremarkable. Medications Prior to Admission Medication Sig Dispense Refill indomethacin (INDOCIN) 25 mg capsule Take 3 capsules by mouth 3 times daily (with meals ). 25 mg thrice daily for 3 days, 50 mg thrice daily for 3 days and then 75 mg thrice daily after 180 capsule 1 levETIRAcetam (KEPPRA) 500 mg tablet Take 1 tablet by mouth 2 times daily. 60 tablet 4 midodrine (PROAMATINE) 10 MG tablet Take 1 tablet by mouth 3 times daily as needed (for SBP<90). 30 tablet 0 omeprazole (PRILOSEC) 20 mg TBEC Take 1 tablet by mouth every morning (before breakfast ). 30 each 1 ondansetron (ZOFRAN ODT) 8 mg disintegrating tablet Take 1 tablet by mouth every 12 elliot rs as needed for Nausea or Other (headache). 60 tablet 3 propranolol (INDERAL) 40 mg tablet Take 1 tablet by mouth 2 times daily. 60 tablet 2 sertraline (ZOLOFT) 25 mg tablet Take 1 tablet by mouth Daily. 30 tablet 0 thiamine (VITAMIN B-1) 100 mg tablet Take 1 tablet by mouth Daily. 30 tablet 0 DISCHARGE EXAM Vital Signs: Vitals: 12/24/19 2351 12/25/19 0434 12/25/19 0749 12/25/19 0824 BP: 114/78 107/66 113/73 Pulse: 87 77 91 Resp: 16 16 18 Temp: 36.8 C (98.3 F) 36.8 C (98.3 F) 36.9 C (98.5 F) TempSrc: Oral Oral Oral SpO2: 98% 100% 98% Weight: 68.3 kg (150 lb 9.2 oz) Height: 1.626 m (5' 4.02") Physical Exam General appearance: alert, appears stated age and cooperative. Fatigued looking but very i nteractive. Coherent. Oriented x3. Head: Normocephalic, without obvious abnormality, atraumatic Neck: [...] cyanosis or edema Pulses: 2+ and symmetric Skin: Skin color, texture, turgor normal. No rashes or lesions Lymph nodes: Cervical, supraclavicular, and axillary nodes normal. Neurologic: Grossly normal DATA, personally reviewed Recent Labs Lab 12/25/1942512/24/19 0557 12/23/1943612/22/19 1819 WBC 8.11 11.41* 22.73* 18.71* HGB 11.6 11.6 12.2 12.3 HCT 34.7 34.3 35.0 34.6 PLT 229 228 258 257 MONOPCT 5.70 -- 2.80 3.90 Recent Labs Lab 12/25/1942512/24/19 0557 12/23/19 1805 12/23/19 0437 12/22/19 1819 NA 140 141 -- 139 137 K 4.1 4.1 3.7 3.2* 2.8* CL 107 112* -- 106 104 CO2 26 23 -- 24 24 BUN 8 8 -- <5* <5* CALCIUM 8.8 8.9 -- 8.8 8.3* ALKPHOS -- -- -- -- 99 ALT -- -- -- -- 19 AST -- -- -- -- 33 Phosphorus: Lab Results Component Value Date PHOS 2.4 12/23/2019 Recent Labs Lab 12/25/19 04212/24/19 0557 12/23/19 0437 MG 1.8 2.0 2.2 Recent Labs Lab 12/22/19 2212 PHART 7.382 PO2ART 88 [id number] 39 [id number] 97 Lab Results Component Value Date CREA 0.8 12/25/2019 Radiology, personally reviewed Xr Chest Ap Portable Result Date: 12/22/2019 Support apparatus in satisfactory position. Signed by: Daija Aldrich Wendy Sign Date/Time: 12/22/2019 6:50 PM PLAN -discharge home. -follow medications as outlined below. -follow up with providers as indicated. Disposition: home Condition: Stable Code Status: Full Code Discharge Procedure Orders Levetiracetam Level Standing Status: Future Standing Exp. Date: 12/24/20 Order Comments: Send result to PCP, RAFFI Ji and Dr. Middleton, (neurologist). [facility] [address] [facility] [place] [id number] Schedule an appointment as soon as possible for a visit in 1 week For a recheck. Check keppra level in 1 week before the morning dose. Anastasia Argueta MD [facility] TYSHAWN MATA, [facility] [phone] Schedule an appointment as soon as possible for a visit in 2 weeks For a recheck Discharge Medications New Medications Details folic acid 1 mg tablet Take 1 tablet by mouth Daily. Start: December 26, 2019 levoFLOXacin 500 mg tablet Take 1 tablet by mouth Daily for 10 days. Indications: Community Acquired Pneumonia aka: LEVAQUIN Start: December 26, 2019 Changed Medications Details levETIRAcetam 750 MG tablet Take 1 tablet by mouth 2 times daily. What changed: medication strength how much to take aka: KEPPRA Unchanged Medications Details midodrine 10 MG tablet Take 1 tablet by mouth 3 times daily as needed (for SBP<90). aka: PROAMATINE omeprazole 20 mg Tbec Take 1 tablet by mouth every morning (before breakfast). aka: priLOSEC ondansetron 8 mg disintegrating tablet Take 1 tablet by mouth every 12 hours as needed for Nausea or Other (headache). aka: ZOFRAN ODT propranolol 40 mg tablet Take 1 tablet by mouth 2 times daily. aka: INDERAL sertraline 25 mg tablet Take 1 tablet by mouth Daily. aka: ZOLOFT thiamine 100 mg tablet Take 1 tablet by mouth Daily. aka: VITAMIN B-1 Discontinued Medications indomethacin 25 mg capsule aka: INDOCIN Discharge took 45 minutes, to include final examination, discussion of admission, and prepa ration of prescriptions, instructions for on-going care, follow-up and documentation of disc harge summary. Dictation and top spotter or software, [employer], used which may contain error for similar s ounding words even after review. Personal communication requested for any clarification. Moreno Juares MD 12/25/2019 11:24 AM documented in this enc ounter Discharge Instructions Instructions Moreno Juares MD - 12/25/2019Follow up with PCP for a recheck of pneumonia a nd keppra level in 1 week before the morning dose. The patientshould notdrive a vehicle or vessel of any kind, swim, bathe alone, boat, sc uba, work on heights, operate heavy machinesor cook on open fire for six (6) months from a ny event of loss of consciousness, altered awareness or loss of body control. documented in this encounter Medications at Time of Discharge + + + +---------+ + + | Medication | Sig | Dispensed | Refills | Start | End Date | | | | | | Date | | + + + +---------+ + + | acyclovir | | | 0 | 12/15/19 | | | (ZOVIRAX) 800 mg | | | | 20 | | | tablet | | | | | | + + + +---------+ + + | folic acid 1 mg | Take 1 tablet by | 30 | 1 | 12/26/19 | | | tablet | mouth Daily. | tablet | | 20 | | + + + +---------+ + [...] + + + +---------+ + + | omeprazole | | | 0 | 12/05/19 | | | (PRILOSEC) 20 mg | | | | 20 | | | capsule | | | | | | + + + +---------+ + + | omeprazole | Take 1 tablet by | 30 each | 1 | 09/26/19 | | | (PRILOSEC) 20 mg | mouth every morning | | | 20 | | | TBECIndications: | (before breakfast). | | | | | | Hemicrania continua | | | | | | + + + +---------+ + + | ondansetron | Take 1 tablet by | 60 | 3 | 11/10/19 | | | (ZOFRAN ODT) 8 mg | mouth every 12 hours | tablet | | 20 | | | disintegrating | as needed for | | | | | | tabletIndications: | Nausea or Other | | | | | | Chronic migraine | (headache). | | | | | + + [...] + + + +---------+ + + | levETIRAcetam | Take 1 tablet by | 60 | 1 | 12/25/19 | | | (KEPPRA) 750 MG | mouth 2 times daily. | tablet | | 20 | 0 | | tablet | | | | | | + + + +---------+ + + | levoFLOXacin | Take 1 tablet by | 10 | 0 | 12/26/19 | | | (LEVAQUIN) 500 mg | mouth Daily for 10 | tablet | | 20 | 0 | | tabletIndications: | days. Indications: | | | | | | Community Acquired | Community Acquired | | | | | | Pneumonia | Pneumonia | | | | | + + + +---------+ + + | propranolol | Take 1 tablet by | 60 | 2 | 12/04/19 | | | (INDERAL) 40 mg | mouth 2 times daily. | tablet | | 20 | 0 | | tabletIndications: | | | | | | | Chronic migraine | | | | | | + + + +---------+ + + documented as of this encounter Progress Notes Pérez Paul MD - 12/24/2019 9:19 AM PDTFormatting of this note might be different fro m the original. Subjective: Patient seen and examined. Steffi Bishop is a 54 y.o. female admitted to the hospital for: Seizures. Patient Summary: please refer to H&P and My consult. Current complaints: Doing better, no seizures and no new concerns. Tolerating regimen well. Addendum: confirmed with nurse, no seizures. Mild headache responded to analgesics. No head ache at this time. Objective: Vitals: Temp: [36.9 C (98.4 F)-37.4 C (99.3 F)] 37 C (98.6 F) Pulse: [86-116] 87 Resp: [17-21] 20 BP: (91-114)/(60-71) 114/70 Speech: Is normal; fluent and spontaneous. Cognition: The patient is oriented to person, place, and time. Cranial Nerves: At this time, the pupils are equal, and round. Extraocular movements are in tact. The face is symmetric. Hearing is symmetric bilaterally to fingers rubbing. Voice is n ormal. Coordination: Normal finger to nose. Strength: Strength is 5/5 in the upper and lower limbs. Light Touch: Normal light touch sensation in upper and lower extremities. CURRENT MEDICATIONS: Scheduled Meds: enoxaparin 40 mg Subcutaneous Daily folic acid 1 mg Oral Daily levETIRAcetam 750 mg Oral BID levoFLOXacin 500 mg Oral Daily sertraline 25 mg Oral Daily thiamine 100 mg Oral Daily Labs Lab Results Component Value Date WBC 11.41 (H) 12/24/2019 HGB 11.6 12/24/2019 HCT 34.3 12/24/2019 MCV 86.6 12/24/2019 PLT 228 12/24/2019 Lab Results Component Value Date BUN 8 12/24/2019 NA 141 12/24/2019 K 4.1 12/24/2019 CL 112 (H) 12/24/2019 CO2 23 12/24/2019 Ca: 8.[address] from 06/25/2019: 1. No acute intracranial findings. 2. Severe left maxillary sinus opacification. EKG Results for orders placed or performed during [...] Baxter MD ([id number]) on 06/26/2019 7:14:20 PM EEG 12/22/2019: This limited EEG is suggestive of generalized nonspecific cerebral dysfunction. No ictal di scharges were seen. Clinical correlation is recommended. Assessment: 1- Breakthrough seizures, status (multiple seizures with no good recovery in between and in ability to protect airway), unclear etiology, possibly due to pneumonia. 2- H/o alcohol use. 3- Leukocytosis without fever, left lower lob pneumonia, improving. Patient quit drinking. Patient is back to normal, non focal exam. Plan: 1. Telemetry bed with reasonable hydration, correct electrolytes as needed. Seizure and fal l precaution. 2. Vital signs and neurocheck every 4 hours. 3. Temperature every 4 hours and treat any temperature greater than 100 (37.8). 4. For #1, Keppra 750 mg bid and check level in 1 week before am dose. The patient should n ot drive a vehicle or vessel of any kind, swim, bathe alone, boat, scuba, work on heights, o perate heavy machines or cook on open fire for six (6) months from any event of loss of cons ciousness, altered awareness or loss of body control. 5. She is on thiamine and folic acid. 6. For #3, per primary on levofloxacin. 7. General care including GI and DVT prophylaxis and risk factors modification per primary team. Thank you for allowing us to participate in your patient care. Please call with questions. Will sign off. Patient is to follow with Dr. Argueta in 2 weeks upon discharge. Erika Jaimes MD - 12/24/2019 7:27 AM PDTFormatting of this note might be different from the [facility]: Hospitalist Progress Note Hospital Day: LOS: 2 days SUBJECTIVE Patient Summary: 54-year-old female with history of seizure disorder, depression, alco hol use, PTSD, chronic hepatitis C, drug abuse admitted to the ICU with seizure requiring in tubation. Patient was given multiple doses of benzodiazepines and loaded with Keppra in the emergency department. Patient was extubated on December 21 and then subsequently transferred to the medical floor. Neurology was consulted and her Keppra dose was increased. She was a lso started on Rocephin for possible aspiration pneumonia. She received Rocephin and Zithro max in the outside hospital. She was continued on CIWA protocol for alcohol withdrawal. EE G was negative for seizures. Events Overnight: Patient is oriented x3. She complains of a headache. She states th at she has a cough prior to admission. She denies any fever. She feels weak. Patient juan es recent alcohol use. Scheduled Medications cefTRIAXone 1 g Intravenous Daily enoxaparin 40 mg Subcutaneous Daily levETIRAcetam 750 mg Oral BID sertraline 25 mg Oral Daily thiamine 100 mg Oral Daily Continuous Infusions PRN Medications acetaminophen, docusate sodium, LORazepam, magnesium hydroxide, melatonin, midodrine, ondan setron, polyethylene glycol, Potassium replacement - NON ICU AND Potassium AND potas sium chloride AND potassium chloride, senna OBJECTIVE Vital Signs: BP 104/71 | Pulse 98 | Temp 37.4 C (99.3 F) (Oral) | Resp 17 | Wt 68.3 kg (150 lb 9 .2 oz) | SpO2 98% | BMI 25.85 kg/m Patient Vitals for the past 24 hrs: BP Temp Temp src Pulse Resp SpO2 Weight 12/24/19 0336 104/71 37.4 C (99.3 F) Oral 98 17 98 % 12/23/19 2330 91/61 37.1 C (98.7 F) Oral 94 19 99 % 12/23/19 1946 96/60 37.3 C (99.1 F) Oral 86 21 98 % 12/23/19 1524 104/66 36.9 C (98.4 F) Oral 116 20 99 % 12/23/19 1009 112/70 37.4 C (99.3 F) Oral 100 20 99 % 68.3 kg (150 lb 9.2 oz) 12/23/19 0800 (!) 88/50 37.8 C (100 F) 93 20 100 % Intake/Output Summary (Last 24 hours) at 12/24/2019 0732 Last data filed at 12/23/2019 1500 Gross per 24 hour Intake 200 ml Output Net 200 ml Physical Exam: Constitutional: Alert and oriented to person, place, and time. HEENT: Neck supple, no JVD, non icteric sclera. Cardiovascular: Normal rate, regular rhythm, normal heart sounds with S1 and S2, Exam re veals no gallop and no friction rub. No murmur heard. No S3, No S4 Pulmonary/Chest: Effort normal and breath sounds are decreased bilaterally. Abdominal: Soft. Bowel sounds are normal. exhibits no distension and no mass. There is no t enderness. There is no rebound and no guarding. Extremeties/Musculoskeletal: exhibits no edema. Neurological: Alert and oriented to person, place, and time. Skin: Skin is warm and dry. Psychiatric: Has a normal mood and affect. DATA Recent Labs 12/24/19 0557 12/23/19 0437 WBC 11.41* 22.73* HGB 11.6 12.2 HCT 34.3 35.0 PLT 228 258 MCV 86.6 85.4 Recent Labs Lab 12/24/19 0557 12/23/19 1805 12/23/19 0437 12/22/19 1819 NA 141 -- 139 -- 137 K 4.1 3.7 3.2* -- 2.8* CL 112* -- 106 -- 104 CO2 23 -- 24 -- 24 ANIONGAP 10 -- 12 -- 12 BUN 8 -- <5* -- <5* CREA 0.8 -- 0.83 -- 0.76 CALCIUM 8.9 -- 8.8 -- 8.3* ALBUMIN -- -- -- -- 3.7 ALKPHOS -- -- -- -- 99 ALT -- -- -- -- 19 AST -- -- -- -- 33 MG 2.0 -- 2.2 < > -- PHOS -- -- 2.4 -- -- < > = values in this interval not displayed. Recent Labs 12/24/19 0557 12/23/19 0437 12/22/19 1819 GLU 103* 120* 103* No results for input(s): TROPONIN, BNP in the last 72 hours. No results for input(s): PROTIME, INR, PTT in the last 168 hours. No results for input(s): IRON, TIBC, PCTSAT, FERRITIN, TSH, [id number], FOLATE in the last 168 hours. Recent Labs Lab 12/22/19 1823 LACTATE 0.9 No results for input(s): AMYLASE, LIPASE in the last 168 hours. No results for input(s): TRIG, CHOL, HDL, LDL in the last 168 hours. No results for input(s): AMMONIA in the last 168 hours. No results for input(s): PROCALCITONI in the last 72 hours. Microbiology Results (72 hrs) Procedure Component Value Units Date/Time Culture, Respiratory, Lower, Smear [[id number]] Collected: 12/22/19 1755 Order Status: Completed Lab Status: Preliminary result Updated: 12/23/19 0948 Specimen: Body Fluid from Sputum, Suction Gram Stain Result GREATER THAN 10 WBCS/LPF Gram Stain Result LESS THAN 10 SEC/LPF Gram Stain Result -- 3+ GRAM POSITIVE COCCI Gram Stain Result -- 2+ GRAM NEGATIVE RODS Gram Stain Result -- 2+ GRAM POSITIVE RODS RESULT CULTURE IN PROGRESS RESULT Testing performed at [facility], [address] [place] [id number] Comment: Testing performed at [facility], [address] [place] [id number] MRSA NAAT [[id number]] Collected: 12/22/19 1708 Order Status: Completed Lab Status: Final result Updated: 12/22/19 184 Specimen: Tissue from Nares SOURCE: NARES(NOSE) Result NEGATIVE Comment: Testing performed at [facility];[address] [place] [address];[place] [address] Xr Chest Ap Portable Result Date: 12/22/2019 Support apparatus in satisfactory position. Signed by: Daija Aldrich Wendy Sign Date/Time: 12/22/2019 6:50 PM PROBLEM LIST Principal Problem: Seizure disorder Active Problems: Smoker History of alcohol abuse Chronic hepatitis C without hepatic coma History of posttraumatic stress disorder (PTSD) MDMA abuse ASSESSMENT & PLAN Seizure disorder. Unclear if this is from alcohol withdrawal. We will continue Keppra per neurology recommendations and recheck level in 1 week. Status epilepticus has resolved. E EG was negative for seizures. Possible aspiration versus community-acquired pneumonia. We will stop Rocephin and start L evaquin. Chest x-ray at outside facility showed left lower lobe infiltrate. Patient remain s afebrile and white count is trending down. Sputum cultures pending. Lactic acidosis velazquez s resolved. No evidence of sepsis at admission. MRSA screen is negative. Acute hypoxic respiratory failure secondary to seizures. Resolved. Alcohol abuse. We will continue CIWA protocol. Will continue Ativan as needed. We will c ontinue thiamine and folic acid. History of hepatitis C. Outpatient follow-up. Hypotension. We will continue home midodrine PRN. Depression. Will continue Zoloft. DVT prophylaxis. We will continue Lovenox. Deconditioning. PT OT consulted. Patient's daughter Catarina phone #[phone] updated. Anticipate discharge in 24 to 48 hours Plan discussed with patient. All questions were answered . All data was reviewed. Disposition: Inpatient Code Status: Full Code Erika Myers MD 12/24/2019 7:32 AM This entry has been created using [employer] Speech Recognition software and [employer]. The entry has been reviewed and there may still exist sound alike word errors. Ashok Lux ARNP - 12/23/2019 4:38 AM PDTFormatting of this note might be different from the [facility] Service: Retail Business Manager Progress Note Steffi Bishop 54 y.o. Hospital Day: LOS: 1 day Post-Op Day: * No surgery found * [facility] SUBJECTIVE Patient Summary: From Dr Bautista H&P(12/22/2019): "The patient is a 54 y.o. female with significant past medical history of known seizures, depression, alcohol abuse, PTSD, he p C infection, drug abuse, who was found to be seizing. The patient lives on the [facility] and was found by her friend seizing who then called EMS and the family underscore that the patient was found to have another seizure not protecting the airway status continued at [facility] ch point decision was made to intubate the patient in route to the ED. In the ED patient wa s given multiple doses of benzos and was loaded up with thousand grams of Keppra. No other history was available. Patient follows up with Dr. Argueta. Last time she saw he r was on 12/03. Unclear if patient has been taking her prescribed Keppra. Also unclear if theodora brand continues to drink alcohol. As per the notes from outside hospital patient was svetlana blake with daughter and stayed on that couch for the last 3 days. Daughter does not believe jesus paulino had access to any drugs or alcohol. But this cannot be verified at this time." ICU Timeline: 12/21: Transfer from [facility] ER intubated on MV. EEG negative for seizures. Events Overnight: Extubated to 2L O2 NC. Hemodynamically stable. No acute issues. SCHEDULED MEDICATIONS Reviewed. OBJECTIVE VITAL SIGNS Temp: [37.1 C (98.8 F)-37.6 C (99.7 F)] 37.1 C (98.8 F) Pulse: [86-110] 86 Resp: [12-36] 13 BP: (76-130)/(46-82) 84/59 Intake/Output Summary (Last 24 hours) at 12/23/2019 0438 Last data filed at 12/23/2019 0200 Gross per 24 hour Intake Output 900 ml Net -900 ml EXAM GEN: awake and alert. Oriented to self. NAD NEURO: PERRLA, patient moves all extremities well. Following commands. HEENT: sclerae clear, nonicteric, oral mmm, pink, no exudates NECK: supple, trachea midline CV: RRR, S1/S2, no murmur, rub or gallop, peripheral pulses palpable, cap refill brisk LUNGS: Bilateral air entry present, no wheezing, rales or rhonchi, symmetric chest expansio n, even/unlabored respirations ABD: soft, nondistended, nontender to palpation, no masses, no hepatosplenomegaly EXTR: no edema, clubbing or cyanosis SKIN: warm, dry, no rash or mottling; no e/o skin breakdown over the occiput, scapulae, elb ows, sacrum or heels LINES/TUBES:PIVs Diagnostic Studies: Available labs and images have been reviewed and will be addressed as indicated in the assessment and plan. PROBLEM LIST Principal Problem: Status epilepticus Active Problems: Smoker History of alcohol abuse History of posttraumatic stress disorder (PTSD) Post-ictal state MDMA abuse Resolved Problems: * No resolved hospital problems. * ASSESSMENT & PLAN NEURO: Seizure disorder: Unclear if this is a primary seizure disorder or this is from alcohol withdrawal. Patient follows up with neurology at [facility]. Received 1 g of Keppra. We will keep her on keppra 500mg twice daily for now. EEG negative for seizures Neurology consult in a.m. ETOH abuse. Unclear when last drink was, patient states that it has been awhile, but r emains confised. Will start on CIWA, thiamine and folic acid. CV: No acute issues PULM: Acute respiratory failure: Secondary to seizures. Patient intubated for airway protecti on. Extubated 12/21. Currently on 2L O2 NC. Resolved GI/NUTRITION: Alcohol abuse: Patient has a longstanding history of alcohol abuse. Unclear when the la st drink was. Will check a CMP. Labs noted hospital did not appear that patient had any acu te alcoholic hepatitis. Coags also appear to be normal. Protein energy malnutrition. Given patient's history of alcoholism and drug abuse. Keny moralez consult RD for nutritional needs and supplementation General diet RENAL/LYTES: No acute issues Acute metabolic acidosis. Secondary to severe lactic acidosis secondary seizures. Init ial lactate checked was 14 now normal. resolved ID: Community-acquired pneumonia versus aspiration pneumonia: Left lower lobe infiltrate wa s noted in the chest x-ray done at the outside hospital. Chest x-ray currently pending here . We will continue with ceftriaxone. Patient received ceftriaxone azithromycin in outside hospital. Most likely aspiration. No history of any prodrome. Unlikely this to be infecti ous. HEME: No acute issues. ENDO: Acute issues MUSC/SKIN: No acute issues. PROPHYLAXIS: Stress ulcer prophylaxis: Pantoprazole DVT prophylaxis: Heparin injection VAP bundle: chlorhexidine oral care and HOB > 30 degrees Disposition: ICU care as above. Code Status: Full Code *Please bill 35 minutes of high complexity time spent evaluating the patient, reviewing the data and formulating a plan exclusive of all other procedures. Ashok G. Joao, CONTRACT ADMINISTRATOR 12/23/2019 Dictation software, [id number], was used which may contain error with similar sound words even after review. Portions of this chart may have been copied from previous notes for continuity of care. ary Cardenas C RT - 12/23/2019 1:00 AM PDTPt awake/alert. ABG done on MMV mode and was normal. Tried a SBT on pt for 30min and passed. Pt following commands appropriately, received order for extubat ion. Cuff leak test passed, pt extubated @0050 to 2L oxymask with no complications. Electron ically signed by Mary Cardenas CRT at 12/23/2019 3:41 AM PDTPérez Paul MD - 12/05 8:56 PM PDTEEG: This limited EEG is suggestive of generalized nonspecific cerebral d ysfunction. No ictal discharges were seen. Clinical correlation is recommended. Full report to follow documented in this en counter H&P Notes Gabe Bautista MD - 12/22/2019 5:59 PM PDT [facility] Service: Retail Business Manager Admission History & Physical Steffi Bishop 54 y.o. Date of Admission: 12/22/2019 Requesting Physician: ER, Prakash Curiel Indication for ICU Admission: Seizure History Obtained From: chart review and the ER doc CHIEF COMPLAINT: Seizures HISTORY OF PRESENT ILLNESS The patient is a 54 y.o. female with significant past medical history of known seizures, de pression, alcohol abuse, PTSD, hep C infection, drug abuse, who was found to [place]izing[place] friend seizing who then called EMS a nd the family underscore that the patient was found to have another seizure not protecting t he airway status continued at which point decision was made to intubate the patient in route to the ED. In the ED patient was given multiple doses of benzos and was loaded up with tho usand grams of Keppra. No other history was available. Patient follows up with Dr. Argueta. Last time she saw he r was on 12/03. Unclear if patient has been taking her prescribed Keppra. Also unclear if theodora brand continues to drink alcohol. As per the notes from outside hospital patient was svetlana blake with daughter and stayed on that couch for the last 3 days. Daughter does not believe jesus paulino had access to any drugs or alcohol. But this cannot be verified at this time. Active comorbid conditions include: - hepatitis; C; chronic - seizures; generalized - psychiatric problem - anxiety - depression - Drugs/Alcohol/Tobacco - alcohol problem - substance abuse; methamphetamines - tobacco use REVIEW OF SYSTEMS Unable to review due to intubation and mechanical ventilation PAST MEDICAL HISTORY Past Medical History: Diagnosis Date Alcohol abuse Depression Drug abuse (HCC) methamphetamine and MDMA Generalized tonic-clonic seizure (HCC) 06/22/2019 PTSD (post-traumatic stress disorder) Status epilepticus (HCC) 06/22/2019 PAST SURGICAL HISTORY Past Surgical History: Procedure Laterality Date ANKLE SURGERY Right ankle pins and plate cellulitis unknown left eye Morris CHOLECYSTECTOMY HYSTERECTOMY ALLERGIES Allergies Allergen Reactions Aspirin Other (See Comments) seizure Bee Pollen Other (See Comments) Blacks out, swells up MEDICATIONS PRIOR TO ADMISSION Prior to Admission medications Medication Sig Start Date End Date Taking? Authorizing Provider indomethacin (INDOCIN) 25 mg capsule Take 3 capsules by mouth 3 times daily (with meals). 2 5 mg thrice daily for 3 days, 50 mg thrice daily for 3 days and then 75 mg thrice daily afte r 09/26/19 Anastasia Argueta MD levETIRAcetam (KEPPRA) 500 mg tablet Take 1 tablet by mouth 2 times daily. 12/04/19 12/03/20 Anastasia Argueta MD midodrine (PROAMATINE) 10 MG tablet Take 1 tablet by mouth 3 times daily as needed (for SBP <90). 06/30/19 Beto Kothari MD omeprazole (PRILOSEC) 20 mg TBEC Take 1 tablet by mouth every morning (before breakfast). Anastasia Argueta MD ondansetron (ZOFRAN ODT) 8 mg disintegrating tablet Take 1 tablet by mouth every 12 hours a s needed for Nausea or Other (headache). 11/10/19 Anastasia Argueta MD propranolol (INDERAL) 40 mg tablet Take 1 tablet by mouth 2 times daily. 12/04/19 Anastasia glasgow MD sertraline (ZOLOFT) 25 mg tablet Take 1 tablet by mouth Daily. 07/04/19 Beto Kothari MD thiamine (VITAMIN B-1) 100 mg tablet Take 1 tablet by mouth Daily. 07/01/19 Marilee Hawkins FAMILY HISTORY OF SIGNIFICANCE Family History Problem Relation Age of Onset Diabetes Mother Diabetes Brother SOCIAL HISTORY Social History Socioeconomic History Marital status: Single Spouse name: Not on file Number of children: Not on file Years of education: Not on file Highest education level: Not on file Occupational History Not on file Social Needs Financial resource strain: Not on file Food insecurity: Worry: Not on file Inability: Not on file Transportation needs: Medical: Not on file Non-medical: Not on file Tobacco Use Smoking status: Former Smoker Packs/day: 0.25 Smokeless tobacco: Never Used Substance and Sexual Activity Alcohol use: Yes Drug use: Yes Types: Methamphetamines, Other-see comments Comment: MDMA Sexual activity: Not on file Lifestyle Physical activity: Days per week: Not on file Minutes per session: Not on file Stress: Not on file Relationships Social connections: Talks on phone: Not on file Gets together: Not on file Attends rastafari service: Not on file Active member of club or organization: Not on file Attends meetings of clubs or organizations: Not on file Relationship status: Not on file Intimate partner violence: Fear of current or ex partner: Not on file Emotionally abused: Not on file Physically abused: Not on file Forced sexual activity: Not on file Other Topics Concern Not on file Social History Narrative Not on file PHYSICAL EXAM VITAL SIGNS Temp: [37.6 C (99.6 F)] 37.6 C (99.6 F) Pulse: [88-100] 88 Resp: [16-17] 16 BP: (85-130)/(51-72) 85/53 EXAM GEN: Intubated sedated, unkempt NEURO: PERRLA, patient moves all extremities when sedation is lightened. Reaching for the ET tube and swinging at the nurses as per EMS. HEENT: sclerae clear, nonicteric, oral mmm, pink, no exudates , ETT in place NECK: supple, trachea midline CV: RRR, S1/S2, no murmur, rub or gallop, peripheral pulses palpable, cap refill brisk LUNGS: Bilateral air entry present, no wheezing, rales or rhonchi, symmetric chest expansio n, even/unlabored respirations ABD: soft, nondistended, nontender to palpation, no masses, no hepatosplenomegaly EXTR: no edema, clubbing or cyanosis SKIN: warm, dry, no rash or mottling; no e/o skin breakdown over the occiput, scapulae, elb ows, sacrum or heels LINES/TUBES:PIVs Diagnostic Studies: Available labs and images have been reviewed and will be addressed as indicated in the assessment and plan. PROBLEM LIST Principal Problem: Status epilepticus Active Problems: Smoker History of alcohol abuse History of posttraumatic stress disorder (PTSD) Post-ictal state MDMA abuse Resolved Problems: * No resolved hospital problems. * ASSESSMENT & PLAN NEURO: Seizure disorder: Unclear if this is a primary seizure disorder or this is from alcohol withdrawal. Patient follows up with neurology at [facility]. Received 1 g of Keppra. We will keep her on final twice daily for now. Will get an EEG for 20 minutes. Neurology consult i n a.m. if patient continues to seize. At this point given the limited exam it does not appe ar that patient is seizing. CV: No acute issues PULM: Acute respiratory failure: Secondary to seizures. Patient intubated for airway protecti on. On minimal vent settings. Will wean and extubate when seizures are under control. GI/NUTRITION: Alcohol abuse: Patient has a longstanding history of alcohol abuse. Unclear when the la st drink was. Will check a CMP. Labs noted hospital did not appear that patient had any ac [place] alcoholic hepatitis. Coags also appear to be normal. Protein energy malnutrition. Given patient's history of alcoholism and drug abuse. Keny l start tube feeds if patient cannot be extubated. Give n.p.o. for now. RENAL/LYTES: No acute issues BUN/creatinine appeared unremarkable from outside labs. Labs have been currently ordered will wait. Acute metabolic acidosis. Secondary to severe lactic acidosis secondary seizures. Init ial lactate checked was 14 the repeat was 4. Another lactate ordered right now. ID: Community-acquired pneumonia versus aspiration pneumonia.: Left lower lobe infiltrate w as noted in the chest x-ray done at the outside hospital. Chest x-ray currently pending her e. We will continue with ceftriaxone. Patient received ceftriaxone azithromycin in outside hospital. Most likely aspiration. No history of any prodrome. Unlikely this to be infect ious. HEME: No acute issues. ENDO: Acute issues MUSC/SKIN: No acute issues. PROPHYLAXIS: Stress ulcer prophylaxis: Pantoprazole DVT prophylaxis: Heparin injection VAP bundle: chlorhexidine oral care and HOB > 30 degrees Disposition: ICU care as above. Code Status: Full Code Primary Care Physician: RAFFI Ji *Please bill 80 minutes of critical care time spent evaluating the patient, reviewing the d rmau and formulating a plan exclusive of all other procedures. Gabe Bautista MD 12/22/2019 documented in thi s encounter Procedure Notes Juan J Soriano, Neurodiagnostic Tech - 12/22/2019 8:57 PM PDTAssociated Order(s): E EG [facility] Neurodiagnostic Dept [address] [place] [address] Patient: Steffi Bishop ID: [id number] : 1965 Age: 54 Gender: female Room #: 95491 Physician: Pérez Paul Supervisor Long Goods: Juan J Soriano Ref. Physician: Gabe Bautista MD Recording Date: 12/22/2019 Duration: 00:45:19 Report Date: 12/22/2019 8:50 PM Medications: dilaudid, propofol History: The patient is a 54 y.o. female with significant past medical history of known se izures, depression, alcohol abuse, PTSD, hep C infection, drug abuse, who was found to be [place] izing[place] friend seizing who then ca lled EMS and the family underscore that the patient was found to have another seizure not pr otecting the airway status continued at which point decision was made to intubate the patien t in route to the ED. In the ED patient was given multiple doses of benzos and was loaded u p with thousand grams of Keppra EEG Description: Background: Occipital rhythm: Present at times Frequency: 7-8 Hz Voltage: Medium Organization: Fair Reactivity to eye opening/closure: Fair Other background activity: The first 1/3 of the EEG was limited due to movement and muscle artifact. The rest of the EEG was dominated by intermittent widespread low voltage slow acti vity with superimposed alpha and beta activity. Sleep: No definite sleep structures. Activation: Hyperventilation: Not done. Photic Stimulation: Done - 6 Hz. Response to PS: No definite PS. EEG Diagnosis: This limited EEG is suggestive of generalized nonspecific cerebral dysfuncti on. No ictal discharges were seen. Clinical correlation is recommended. documented in this encounter Consult Notes Pérez Paul MD - 12/23/2019 9:08 AM PDTAssociated Order(s): PROVIDER TO PROVIDER CONS ULT Subjective: Steffi Bishop is a 54 y.o. left handed female on whom I have been asked to consult for evalua tion and treatment of a neurologic deficit. Patient used to see Dr. Argueta as an out patient for seizure disorder and migraine. Last v isit was on 12/04/2019. Briefly: "Provoked seizure in Jun, 2019 in the setting of Meth and al cohol use. 4 Seizure on 12/03/2019 in the setting of alcohol use / withdrawal. She was starte d on Keppra 500 mg bid." From outside record: 4 seizures, was given en route 10 mg of diazepam, recurrent seizures. Head CT from Oct, 2019 was ok per report. SE and intubation in Jun,BP was 125/78 and tem p was 98. Initial LA was 1. Was given Keppra 1000 MG, lorazepam 2mg. UA was ok, AG was 28. C a was 9.1, UDS: Non detected and alcohol was < 10. Chest XR: left lung infiltration. Patient was admitted yesterday for seizure. Per admission note: "past medical history of kn own seizures, depression, alcohol abuse, PTSD, hep C infection, drug abuse, who was found to be seizing. patient was found to have another seizure not protecting the airway status cont inued at which point decision was made to intubate the patient in route to the ED. In the E D patient was given multiple doses of benzos and was loaded up with thousand grams of Keppra ." On admission to our hospital: BP: 130/72 Temp: 37.6 Glucose: 110, CBC: 18K, Ca: 8.3 with albumin 3.7, LA: 0.9, M.8. Patient was admitted for breakthrough seizures, symptoms were severe and were associated wi th inability to protect her airway. Symptoms are better. Symptoms are better with Keppra and Ceftriaxone for pneumonia. No seizures since admission. Doing way better. Report of cough but no VELAZQUEZ, visual change, dysphagia, dysphasia, weakness or numbness. Review of Systems Please see my HPI. All other system were reviewed and are negative. 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 Unknown Provoked seizures 09/26/2019 Unknown Neuropathy 09/26/2019 Unknown Methamphetamine intoxication 06/23/2019 Unknown MDMA abuse 06/23/2019 Yes Smoker 06/22/2019 Yes History of alcohol abuse 06/22/2019 Yes Major depressive disorder 06/22/2019 Unknown Chronic hepatitis C without hepatic coma 06/22/2019 Unknown History of posttraumatic stress disorder (PTSD) 06/22/2019 Yes Status epilepticus 06/22/2019 Yes Post-ictal state 06/22/2019 Yes Severe episode of recurrent major depressive disorder, without psychotic features 11/05 Unknown PTSD (post-traumatic stress disorder) 12/01/2018 Unknown Past Medical History: Diagnosis Date Alcohol abuse Depression Drug abuse (HCC) methamphetamine and MDMA Generalized tonic-clonic seizure (HCC) 06/22/2019 PTSD (post-traumatic stress disorder) Status epilepticus (HCC) 06/22/2019 Past Surgical History: Procedure Laterality Date ANKLE SURGERY Right ankle pins and plate cellulitis unknown left eye Morris CHOLECYSTECTOMY HYSTERECTOMY Allergy: Allergies Allergen Reactions Aspirin Other (See Comments) seizure Bee Pollen Other (See Comments) Blacks out, swells up Medications: Home medications: Prior to Admission medications Medication Sig Start Date End Date Taking? Authorizing Provider indomethacin (INDOCIN) 25 mg capsule Take 3 capsules by mouth 3 times daily (with meals). 2 5 mg thrice daily for 3 days, 50 mg thrice daily for 3 days and then 75 mg thrice daily afte r 09/26/19 Anastasia Argueta MD levETIRAcetam (KEPPRA) 500 mg tablet Take 1 tablet by mouth 2 times daily. 12/04/19 12/03/20 Anastasia Argueta MD midodrine (PROAMATINE) 10 MG tablet Take 1 tablet by mouth 3 times daily as needed (for SBP <90). 06/30/19 Beto Kothari MD omeprazole (PRILOSEC) 20 mg TBEC Take 1 tablet by mouth every morning (before breakfast). Anastasia Argueta MD ondansetron (ZOFRAN ODT) 8 mg disintegrating tablet Take 1 tablet by mouth every 12 hours a s needed for Nausea or Other (headache). 11/10/19 Anastasia Argueta MD propranolol (INDERAL) 40 mg tablet Take 1 tablet by mouth 2 times daily. 12/04/19 Anastasia glasgow MD sertraline (ZOLOFT) 25 mg tablet Take 1 tablet by mouth Daily. 07/04/19 Beto Kothari MD thiamine (VITAMIN B-1) 100 mg tablet Take 1 tablet by mouth Daily. 07/01/19 Marilee Hawkins Scheduled Meds: sertraline 25 mg Oral Daily thiamine 100 mg Oral Daily FHx: Family History Problem Relation Age of Onset Diabetes Mother Diabetes Brother SHx: Social History Socioeconomic History Marital status: Single Spouse name: Not on file Number of children: Not on file Years of education: Not on file Highest education level: Not on file Occupational History Not on file Social Needs Financial resource strain: Not on file Food insecurity: Worry: Not on file Inability: Not on file Transportation needs: Medical: Not on file Non-medical: Not on file Tobacco Use Smoking status: Former Smoker Packs/day: 0.25 Smokeless tobacco: Never Used Substance and Sexual Activity Alcohol use: Yes Drug use: Yes Types: Methamphetamines, Other-see comments Comment: MDMA Sexual activity: Not on file Lifestyle Physical activity: Days per week: Not on file Minutes per session: Not on file Stress: Not on file Relationships Social connections: Talks on phone: Not on file Gets together: Not on file Attends rastafari service: Not on file Active member of club or organization: Not on file Attends meetings of clubs or organizations: Not on file Relationship status: Not on file Intimate partner violence: Fear of current or ex partner: Not on file Emotionally abused: Not on file Physically abused: Not on file Forced sexual activity: Not on file Other Topics Concern Not on file Social History Narrative Not on file Objective: Vitals: BP (!) 88/50 | Pulse 93 | Temp 37.8 C (100 F) | Resp 20 | Wt 68.2 kg (150 l b 5.7 oz) | SpO2 100% | BMI 25.81 kg/m General: Well developed, well nourished, in no acute distress Neck: Supple, unable to appreciate bruits. Heart: Regular rate and rhythm, S1, S2 Pulses: Normal in upper extremities Detailed Neurologic Exam: Speech: Is normal; fluent and spontaneous with normal comprehension Cognition: The patient is oriented to person, place, and time. Cranial Nerves: At this time, the pupils are equal, round, and reactive to light. Visual fi elds are full to finger confrontation. Extraocular movements are intact. Trigeminal sensatio n is intact and the muscles of mastication are normal. The face is asymmetric (surgery to le ft eye / face). Hearing is symmetric bilaterally to fingers rubbing. The palate elevates in the midline. Voice is normal. Shoulder shrug is normal. The tongue has normal motion without fasciculations. Coordination: Normal finger to nose. Tone: Normal muscle tone. Strength: Strength is 5/5 in the upper and lower limbs. Light Touch: Normal light touch sensation in upper and lower extremities. Labs Lab Results Component Value Date WBC 22.73 (H) 12/23/2019 HGB 12.2 12/23/2019 HCT 35.0 12/23/2019 MCV 85.4 12/23/2019 PLT 258 12/23/2019 Lab Results Component Value Date BUN <5 (L) 12/23/2019 NA 139 12/23/2019 K 3.2 (L) 12/23/2019 CL 106 12/23/2019 CO2 24 12/23/2019 Recent Results (from the past 24 hour(s)) POC Glucose Collection Time: 12/22/19 4:53 PM Result Value Ref Range Glucose, POC 110 (H) 65 - 99 mg/dL MRSA NAAT Collection Time: 12/22/19 5:08 PM Result Value Ref Range SOURCE: NARES(NOSE) Result NEGATIVE MRSNEG Culture, Respiratory, Lower, Smear Collection Time: 12/22/19 5:55 PM Result Value Ref Range Gram Stain Result GREATER THAN 10 WBCS/LPF Gram Stain Result LESS THAN 10 SEC/LPF Gram Stain Result 3+ GRAM POSITIVE COCCI Gram Stain Result 2+ GRAM NEGATIVE RODS Gram Stain Result 2+ GRAM POSITIVE RODS Gram Stain Result Testing performed at [facility], [address] [place] [address] RESULT PENDING Comprehensive Metabolic Panel Collection Time: 12/22/19 6:19 PM Result Value Ref Range Na 137 135 - 145 mmol/L K 2.8 (L) 3.5 - 4.9 mmol/L Cl 104 99 - 109 mmol/L CO2 24 23 - 32 mmol/L Anion Gap 12 5 - 20 mmol/L Glucose 103 (H) 65 - 99 mg/dL BUN <5 (L) 8 - 25 mg/dL Creatinine 0.76 0.50 - 1.00 mg/dL BUN/Creatinine Ratio UNABLE TO CALCULATE Calcium 8.3 (L) 8.5 - 10.5 mg/dL Protein, Total 6.3 6.3 - 8.2 g/dL Albumin 3.7 3.6 - 5.0 g/dL Globulin 2.6 1.3 - 4.9 g/dL A/G Ratio 1.4 1.0 - 2.4 BILIRUBIN, TOTAL 0.5 0.1 - 1.5 mg/dL ALK PHOS 99 35 - 115 U/L AST 33 10 - 45 U/L ALT 19 10 - 65 U/L Estimated GFR >60 >60 mL/min/1.73m2 CBC with Differential Collection Time: 12/22/19 6:19 PM Result Value Ref Range WBC 18.71 (H) 3.80 - 11.00 K/uL RBC 4.10 3.70 - 5.10 M/uL Hemoglobin 12.3 11.3 - 15.5 g/dL Hematocrit 34.6 34.0 - 46.0 % MCV 84.4 80.0 - 100.0 fl MCH 30.0 27.0 - 34.0 pg MCHC 35.5 32.0 - 35.5 g/dL RDW-SD 42.6 37 - 53 fl Platelet Count 257 150 - 400 K/uL MPV 8.6 fl Diff Type AUTOMATED % nRBC 0.0 0 /100WBC % Neutrophils 86.00 % IMMATURE GRANULOCYTE 0.50 % % Lymphocytes 9.20 % Monocyte % 3.90 % Eosinophils % 0.20 % Basophils % 0.20 % Neutrophils, Absolute 16.08 (H) 1.90 - 7.40 K/uL IMMATURE GRANS AB 0.10 (H) 0.00 - 0.07 K/uL Absolute Lymphocytes 1.73 1.00 - 3.90 K/uL Absolute Monocytes 0.73 0.00 - 0.80 K/uL Eosinophils, Absolute 0.04 0.00 - 0.50 K/uL Basophils, Absolute 0.03 0.00 - 0.10 K/uL Lactic Acid Collection Time: 12/22/19 6:23 PM Result Value Ref Range Lactate, Serum 0.9 0.4 - 2.0 mmol/L Magnesium Collection Time: 12/22/19 8:25 PM Result Value Ref Range Magnesium 1.8 1.7 - 2.4 mg/dL POC Glucose Collection Time: 12/22/19 10:06 PM Result Value Ref Range Glucose, POC 112 (H) 65 - 99 mg/dL Blood gas, Arterial Collection Time: 12/22/19 10:12 PM Result Value Ref Range FiO2, POC 25 % pH, Arterial, POC 7.382 7.350 - 7.450 pCO2, Arterial 39 35 - 45 mmHg pO2, Arterial 88 80 - 105 mmHg HCO3, Arterial 23 22 - 26 mmol/L TCO2, Arterial, POC 24 23 - 27 mEq/L POC Base Deficit mmol/L 2 0.0 - 2.0 mmol/L SO2, Arterial, POC 97 95 - 98 % Basic Metabolic Panel Collection Time: 12/23/19 4:37 AM Result Value Ref Range Na 139 135 - 145 mmol/L K 3.2 (L) 3.5 - 4.9 mmol/L Cl 106 99 - 109 mmol/L CO2 24 23 - 32 mmol/L Anion Gap 12 5 - 20 mmol/L Glucose 120 (H) 65 - 99 mg/dL BUN <5 (L) 8 - 25 mg/dL Creatinine 0.83 0.50 - 1.00 mg/dL BUN/Creatinine Ratio UNABLE TO CALCULATE Calcium 8.8 8.5 - 10.5 mg/dL Estimated GFR >60 >60 mL/min/1.73m2 CBC with Differential Collection Time: 12/23/19 4:37 AM Result Value Ref Range WBC 22.73 (H) 3.80 - 11.00 K/uL RBC 4.10 3.70 - 5.10 M/uL Hemoglobin 12.2 11.3 - 15.5 g/dL Hematocrit 35.0 34.0 - 46.0 % MCV 85.4 80.0 - 100.0 fl MCH 29.8 27.0 - 34.0 pg MCHC 34.9 32.0 - 35.5 g/dL RDW-SD 44.3 37 - 53 fl Platelet Count 258 150 - 400 K/uL MPV 8.9 fl Diff Type AUTOMATED % nRBC 0.0 0 /100WBC % Neutrophils 90.10 % % Lymphocytes 6.30 % Monocyte % 2.80 % Eosinophils % 0.10 % Basophils % 0.20 % IMMATURE GRANULOCYTE 0.50 % Neutrophils, Absolute 20.48 (H) 1.90 - 7.40 K/uL Absolute Lymphocytes 1.43 1.00 - 3.90 K/uL Absolute Monocytes 0.64 0.00 - 0.80 K/uL Eosinophils, Absolute 0.02 0.00 - 0.50 K/uL Basophils, Absolute 0.05 0.00 - 0.10 K/uL IMMATURE GRANS AB 0.11 (H) 0.00 - 0.07 K/uL Platelet Estimate ADEQUATE RBC Morphology RBC AND PLT MORPHOLOGY APPEAR NORMAL Comment SLIDE SCANNED, AGREES WITH AUTOMATED RESULTS. Magnesium Collection Time: 12/23/19 4:37 AM Result Value Ref Range Magnesium 2.2 1.7 - 2.4 mg/dL Phosphorus Collection Time: 12/23/19 4:37 AM Result Value Ref Range Phosphorus 2.4 2.3 - 4.8 mg/dL IMAGING Xr Chest Ap Portable Result Date: 12/22/2019 CHEST PORTABLE ONE VIEW CLINICAL INFORMATION: Status post intubation and OG tube placement. COMPARISON: XR CHEST AP PORTABLE (06/26/2019); FINDINGS: Endotracheal tube terminates 4.2 c m above the óscar. Enteric tube tip and side port overlie the stomach. Stable cardiomedia stinal contours. Mildly prominent pulmonary vasculature with left greater than right perihil ar opacities, possibly reflecting asymmetric edema or infection, and similar to prior. No p leural effusions. No pneumothorax. No acute osseous change. Support apparatus in satisfactory position. Signed by: Daija Aldrich Tara Sign Date/Time: 12/22/2019 6:[address] from 06/25/2019: 1. No acute intracranial findings. 2. Severe left maxillary sinus opacification. EKG Results for orders placed or performed during [...] Baxter MD ([id number]) on 06/26/2019 7:14:20 PM EEG 12/22/2019: This limited EEG is suggestive of generalized nonspecific cerebral dysfunction. No ictal di scharges were seen. Clinical correlation is recommended. Assessment: This patient was admitted to the hospital with: 1- Breakthrough seizures, status (multiple with no good recovery and inability to protect a irway), unclear etiology,possibly due to pneumonia. 2- H/o alcohol use. 3- Leukocytosis without fever, left lower lob pneumonia? Patient denies recent use of alcohol or drugs. Plan: 1- Telemetry bed with reasonable hydration, correct electrolytes as needed. Seizure and fal l precaution. 2- Vital signs and neurocheck every 4 hours. 3- Temperature every 4 hours and treat any temperature greater than 100 (37.8). 4- For #1, Keppra to 750 mg bid and check level in 1 week before am dose. Check UDS. The pa tient should not drive a vehicle or vessel of any kind, swim, bathe alone, boat, scuba, work on heights, operate heavy machines or cook on open fire for six (6) months from any event o f loss of consciousness, altered awareness or loss of body control. 5- She is on thiamine and folic acid. 6- For #3, per primary on ceftriaxone. 7- General care including GI and DVT prophylaxis and risk factors modification per primary team. Thank you for allowing us to participate in your patient care. Please call with questions. Patient is to follow with Dr. Argueta in 2 weeks upon discharge. documented in this en counter Miscellaneous Notes Plan of Care - Taty Oseguera RN - 12/25/2019 10:16 AM PDT Problem: Adult Inpatient Plan of Care Goal: Absence of Hospital-Acquired Illness or Injury Outcome: Met Problem: Fall Injury Risk Goal: Absence of Fall and Fall-Related Injury Outcome: Met Problem: Seizure, Active Management Goal: Absence of Seizure/Seizure-Related Injury Outcome: Met Problem: Skin Injury Risk Increased Goal: Skin Health and Integrity Outcome: Met Problem: Oral Intake Inadequate Goal: Improved Oral Intake Description Pt will eat >75% of 3 meals/day. Outcome: Met lan of Care - Ele Connolly OTR/Sol - 12/25/2019 9:53 AM PDTFormatting of this note might be different fro m the original. Occupational Therapy Initial Evaluation Note Recommended discharge disposition: home with assist Post discharge occupational therapy recommendation: no further OT Anticipated Equipment Needs At Discharge OT: shower chair, hand held shower head Barriers to community-based discharge Lack of equipment and Fall risk Planned Interventions: Therapy Frequency: 2 times/wk for 10 days with reassessment due by 01/04/20 Summary: Pt is up in chair upon entry, awake and agreeable to OT session. VS are WFL thr oughout session. During this evaluation pt was able to ambulate with CGA and complete groomi ng while seated, toileting, and LE dressing with setup and supervision. Objective impairme nts include decreased balance and decreased strength. These functional limitations in patie nt's ability to complete ADLs/ IADLs/ functional mobility will require ongoing occupational therapy to maximize functional independence and offer the opportunity to return to baseline function. Pt may benefit from continued occupational therapy for medication management, acti vity tolerance, t/fs and UE strengthening. Living Environment Lives With: (daughter, son in law, 3 grandchildren) Living Arrangements: house Home Accessibility: no concerns Number of Stairs to Enter Home: 2 Number of Stairs Within Home: 0 Transportation Available: family or friend will provide Functional Level Prior Transferring: independent Ambulation: independent Toileting: independent Bathing: independent Dressing: independent Eating: independent Communication: understands/communicates without difficulty Prior Functional Level Comment: indep prior to admit, doesn't drive d/t h/o Szs. Occasional ly uses cane to ambulate. Reports no falls in last year. Pt reports manages own medication a nd assists with reconciliation specialist. Likes to cook. Precautions Precautions/Limitations: seizures, falls Cognitive Assessment Orientation: disoriented to, time(knew it was december but reported due to somebody telling he r) Speech: logical, clear Impairments Found (describe specific impairments): gait, locomotion, and balance, functiona l endurance/activity tolerance Sensory Assessment Sensation Comments: Pt reports new numbness in left fingers Vision Comments: wears glasses but does not have them currently- reports things are blurry and may be causing headaches Grooming Assessment/Training Grooming Assess/Train, Comment: oral hygiene Grooming, Level of [place]: set up required Assistive Device: none Grooming Assess/Train, Position: sitting Grooming Impairments: impaired balance Lower Body Dressing Assessment/Training LB Dressing Assess/Train, Comment: socks LB Dressing, Level of [place]: supervised, verbal cues required Assistive Device: none LB Dressing Assess/Train, Position: sitting LB Dressing Impairments: impaired balance, ROM decreased, strength decreased Toileting Assessment/Training Toileting Assess/Train, Comment: Pt had a BM at toilet Toileting, Level of [place]: supervised Assistive Device: grab bar Toileting Assess/Train, Position: sitting, standing Toileting Impairments: impaired functional endurance/activity tolerance, impaired balance Bed Mobility Additional Documentation: supine to/from sit Sit to Supine, Level of [place]: independent Transfers Additional Documentation: sit to/from stand, toilet Sit-Stand, Level of [place]: supervised Stand-Sit, Level of [place]: supervised [id number], Assistive Device: none Toilet, Level of [place]: stand by assist Toilet, Assistive Device: none Impairments: impaired balance, strength decreased ROM Testing Results: no range of motion deficits identified Goals Reflects last filed data and may be from multiple contributors. Grooming Goal Most Recent Value LTG Status new at 12/25/2019 0856 LTG [place] Level modified independent at 12/25/2019 0856 LTG Position standing at 12/25/2019 0856 LTG Adaptive Equipment none at 12/25/2019 0856 Ther Exercise Goal Most Recent Value LTG Status new at 12/25/2019 0856 LTG Pt will complete UE therband program with Level 2 theraband for 3 sets of 10 reps with verbal and visual cues. at 12/25/2019 0856 lan of Care - M sIaac Seals, MOUNTAIN GUIDE - 12/25/2019 8:29 AM PDTFormatting of this note might be different fr om the original. Physical Therapy Treatment Note Recommended discharge disposition: home with assist Post discharge physical therapy recommendation: no further PT Equipment Recommendations: none Barriers to community-based discharge Level of assistance for ADLs/mobility, Home Design, and Fall risk Recommended Frequency: 3 times/wk for 7 days with reassessment due by 12/30/19 Summary: Therapy focused on increasing activity tolerance stair training and balance activ ities. Pt was able to perform multiple bouts of gait with increased distance requiring SHIPPING AND RECEIVING ASSISTANT f or stability during the first bout however the second bout demonstrated improved stability a nd required no SHIPPING AND RECEIVING ASSISTANT. Pt was able to perform balance activites with good stability throughout. While performing stairs pt required some steadying assistance however did not have use of a handrail due to not having them at home. Pt would benefit from continued therapy focusing o n stair training, increasing activity tolerance and balance activities. Pt finished therapy in recliner with all needs met. Precautions Precaution Comment: fall & Sz precautions Bed Mobility Supine to Sit, Level of [place]: independent Transfers Sit-Stand, Level of [place]: supervised Stand-Sit, Level of Bis[place]: supervised [id number], Assistive Device: none Impairments: impaired balance Gait Level of [place]: minimal assist (75% patient effort), contact guard assist Assistive Device: none(SHIPPING AND RECEIVING ASSISTANT) Distance (feet): 2x150 Additional Documentation: stairs (group) Gait Deviations: limb motion velocity decreased, step length decreased Safety Issues: balance decreased during turns, step length decreased Stairs Number of Stairs: 5 Handrail Location: none Level of [place]: minimal assist (75% patient effort) Assistive Device: none Technique Used: step to step (ascending), step to step (descending) Safety Issues: balance decreased during turns, loses balance backward Impairments: impaired balance Balance Retro [id number] Goals Reflects last filed data and may be from multiple contributors. All Transfers Goal Most Recent Value LTG Status new at 12/23/2019 1157 LTG [place] Level independent at 12/23/2019 1157 LTG Assistive Device none at 12/23/2019 1157 Gait Goal Most Recent Value LTG Status new at 12/23/2019 1157 LTG [place] Level independent at 12/23/2019 1157 LTG Assistive Device none at 12/23/2019 1157 LTG Distance (feet) 300 at 12/23/2019 1157 Stair Goal Most Recent Value LTG Status new at 12/23/2019 1157 LTG [place] Level modified independent at 12/23/2019 1157 LTG Assistive Device 1 rail at 12/23/2019 1157 LTG Number of Stairs 3 at 12/23/2019 1157 Additional Goal #1 PT Most Recent Value LTG Status new at 12/23/2019 1157 LTG Pt will increase Tinetti score to >=23/28 at 12/23/2019 1157 PT Time Calculation Individual Start Time: 828 Individual Stop Time: 0852 Individual Total Time: 23 PT Total Treatment Time: 23 lan of Care - Leann Dawn RN - 12/25/2019 6:09 AM PDTPt medicated for nausea x1. Pt given tylenol for hea daches x2. Vital signs stable. Pt remains seizure free. No other changes this shift. End of shift review and 24 hour chart check complete. Problem: Fall Injury Risk Goal: Absence of Fall and Fall-Related Injury 12/24/20192332 by Leann Short RN Outcome: Ongoing, progressing 12/24/20192303 by Leann Short RN Outcome: Ongoing, progressing Intervention: Identify and Manage Contributors to Fall Injury Risk 12/24/20192332 by Leann Short RN Flowsheets (Taken 12/24/20192049) Self-Care Promotion: independence encouraged;BADL personal objects within reach 12/24/20192303 by Leann Short RN Flowsheets (Taken 12/24/20192049) Self-Care Promotion: independence encouraged;BADL personal objects within reach Problem: Seizure, Active Management Goal: Absence of Seizure/Seizure-Related Injury 12/24/20192332 by Leann Short RN Outcome: Ongoing, progressing 12/24/20192303 by Leann Short RN Outcome: Ongoing, progressing Intervention: Prevent Seizure-Related Injury 12/24/20192332 by Leann Short RN Flowsheets (Taken 12/24/20192049) Seizure Precautions: activity supervised;clutter-free environment maintained;emergency equi pment at bedside Note: Pt receiving anti-seizure medication. Pt seizure free at this time 12/24/20192303 by Leann Short RN Flowsheets (Taken 12/24/20192049) Seizure Precautions: activity supervised;clutter-free environment maintained;emergency equi pment at bedside Note: Patient receiving anti seizure medications. Problem: Skin Injury Risk Increased Goal: Skin Health and Integrity Outcome: Ongoing, progressing Intervention: Optimize Skin Protection Flowsheets (Taken 12/24/20192049) Pressure Reduction Techniques: frequent weight shift encouraged Pressure Reduction Devices: positioning supports utilized Skin Protection: adhesive use limited;tubing/device free from skin contact lan of Holly Roberts RN - 12/24/2019 6:09 PM PDTPatient very quiet but seems to answer all quest ions appropriately. Did not remember this nurse this afternoon from visits earlier in the da y. No memory of events prior to arriving at hospital but does know that seizures started rec ently and states she is very faithful w taking her Keppra. No seizure activity noted. Eating fairly well. One loose bm today. Problem: Fall Injury Risk Goal: Absence of Fall and Fall-Related Injury Outcome: Ongoing, progressing Patient will be instructed to call for help when needing to get OOB. Frequent assessment of LOC. Call light at bedside. Bed alarms, lan of Muna Viera OTR/Sol - 12/24/2019 1:50 PM PDTOccupational Therapy Missed Visit (patient unavailable)(pt not in room, bed not in room) Note lan of Cary Patricia Pe, RD - 12/24/2019 1:20 PM PDTFormatting of this note might be different from sofi e original. NUTRITION NOTE Summary Reason For Assessment: physician consult(Malnutrition or nutr risk) 54 yo female admitted with seizure disorder; hx of alcohol and MDMA abuse, Hep C, and PTSD. RD spoke with pt via phone. Diet Experience Self-Selected Diet: Pt states she normally eats 2 meals/day at home. For breakfast, she l ikes cereal with milk. For dinner, she often has meat, vegetables, and pasta/rice. She eat s fruit. Fluid/Beverage Intake Oral Fluids Amount: Drinking fluids ad jack. Pt had milk with lunch. Food Intake Type of Food/Meals: Current active diet order is: Diet Diet general; Effective Now Amount of Food: Pt reports a fair appetite. She states she ate half of her [place] dip sand wich and some of her fruit and salad for lunch. Nourishments: Pt would like to try chocolate supplements. Nutritionally Relevant Medications Folic acid, thiamine Anthropometrics Current Weight: 68.3 kg (150 lb 9.2 oz) Admit Weight: 63.1 kg (139 lb 1.8 oz) BMI based on admit wt: 23.9 (wnls). No recent wt loss noted. Biochemical Data, Medical Test, and Procedures Recent Labs 12/24/19 0557 12/23/19 0437 NA 141 -- 139 K 4.1 < > 3.2* GLU 103* -- 120* BUN 8 -- <5* CREA 0.8 -- 0.83 PHOS -- -- 2.4 MG 2.0 -- 2.2 < > = values in this interval not displayed. Estimated Energy Needs Energy Calorie Requirements: 1580 - 1895 kcal/d (25-30 kcal/kg admit wt of 63.1 kg) Estimated Protein Needs Range Gm Protein (gm): 76 - 95 g/d (1.2-1.5 g/kg admit wt of 63.1 kg) Nutrition Diagnosis Inadequate oral intake related to decreased ability to consume sufficient energy as evidenc ed by pt eating <75% of meals. Malnutrition Pt does not meet ASPEN criteria for malnutrition at this time. Recommendations Nutrition Prescription Ordered Nutrition Order Comments: Continue General diet. Will send choclate Boost BID as am, pm sn ack. Encourage po intake of nutrient-dense, high-protein foods. Nutritional Risk Required Follow Up: 5 days(M, 12/28) Cary Estrada, ALAINA 12/24/2019 1:20 PM Problem: Oral Intake Inadequate Goal: Improved Oral Intake Description Pt will eat >75% of 3 meals/day. Outcome: Ongoing, progressing lan of Holly Rich RN - 12/24/2019 8:20 AM PDT Problem: Seizure, Active Management Goal: Absence of Seizure/Seizure-Related Injury Outcome: Ongoing, progressing Observe for seizure activity, give anti-seizure medications, keep bed alarm on, assist w AD L's, assess AMS & CIWA. Problem: Skin Injury Risk Increased Goal: Skin Health and Integrity Outcome: Ongoing, progressing Observe for redness and irritation. Increase activity. lan of Esme Ho RN - 12/23/2019 11:44 PM PDTPt states "I'm tired". Pt oriented x3. Pt st ates she is still "foggy" but is able to recall more things this shift. Pt needs encourageme nt to eat this shift. CIWAs below 8 this shift. Pt denies pain. VS stable this shift. End of shift review complete. 24 hr chart check complete. Problem: Seizure, Active Management Goal: Absence of Seizure/Seizure-Related Injury Outcome: Ongoing, progressing Intervention: Prevent Seizure-Related Injury Flowsheets (Taken 12/23/2019 4456) Seizure Precautions: activity supervised; clutter-free environment maintained; emergency eq uipment at bedside; enclosure bed used; soft boundaries provided Note: Call light within reach with bed locked and in lowest position. The overhead table within r each. Bedside rails are up per policy. Non-skid socks and staff members used with ambulation . Pt rounded on hourly. Pt calls appropriately. lan of Zarina Betancourt RN - 12/23/2019 7:53 PM PDTEnd of shift note: Pt transferred down from ICU this am. Denied any c/o most of the shift until this evening when pt c/o head ache. CIWA score at that time was 10 with VELAZQUEZ being the highest scoring item. PT indicates sh e has not drank for a long time. Pt was medicated with tylenol 650 mg po and indicated good relief. Appetite has been extremely poor today. Pt's mentation remains foggy and she indicat es she doesn't really remember what she remembers last. Pt has called appropriately for ass ist up to BR but because she remains fairly foggy bed alarm has been armed today , End of shift review complete lan of Sally June, Zarina Weiss RN - 12/23/2019 4: 54 PM PDT Problem: Seizure, Active Management Goal: Absence of Seizure/Seizure-Related Injury Outcome: Ongoing, progressing Problem: Skin Injury Risk Increased Goal: Skin Health and Integrity Outcome: Ongoing, progressing la n of Dania Barnard RN - 12/23/2019 1:45 PM PDTCare Management Initial Assessment Readmission Risk: Medium Status Prior to Admission or Illness Arrival From: admitted as an inpatient Lives With: child(milla), dependent Living Arrangements: house Caregiver For: no one Patient s Caregiver: other (see comments)(pt has been independent) Functional Status: indep prior to admit, doesn't drive d/t h/o Szs Caregiving Concerns: Home Accessibility: no concerns Transportation Available: car, family or friend will provide Able to return to prior living: Care Management Concerns Last discharge date: Readmission Within Last 30 Days: no previous admission in last 30 days Is Readmission Diagnosis Related to or Same As: Previous Discharging Facility: Previous Discharge Destination From: PCP: RAFFI Ji Contact Information Family Contact Information: Name: Margo Hinosn(aunt) Pager: Fax: DC Needs Assessment Current Outpt/Agency/Support Groups: none Community Agency Name: Anticipated Changes Related to Illness: none Concerns to be Addressed: Services Anticipated at Discharge: education services Equipment Used at Home: none Equipment Needed after Discharge: Durable Medical Equipment Provider: Pharmacy/Medication Needs: other (see comments)([facility] ) Transportation Needs: car Initial Plan Anticipated Discharge Disposition: home with assist Expected DC Date: Steps Taken Toward Discharge: Next Steps: Notes: Met with patient at bedside to discuss discharge plan and needs. Introduced myself a nd explained my role in discharge planning. Pt is still drowsy from seizures. [place] du[place]ter. Pt has a history of drug and alcohol a buse. Electronically signed: Dania Vargas RN 12/23/2019 1:45 PM lan of Care - Albania Sidhu PT - 12/23/2019 11:57 AM PDTFormatting of this note might be different from sofi avitia original. Physical Therapy Initial Evaluation Note Recommended discharge disposition: home with assist Post discharge physical therapy recommendation: no further PT Equipment Recommendations: none Barriers to community-based discharge Precautions and Fall risk Planned Interventions: balance training, gait training, stair training Recommended Frequency: 3 times/wk for 7 days with reassessment due by 12/30/19 Summary: Pt lethargic, but appropriate in responses. Pt noted to have unsteady gait, but s elf-corrects w/min assist. Not safe to amb w/o assist, but not needing a fww at this time. T inetti score 17/28, thus a high fall risk. Pt has family at home and was indep prior, expect that pt will progress to indep again with PT and increase activity. Living Environment Lives With: child(milla), adult Living Arrangements: house Number of Stairs to Enter Home: (doesn't recall if she has stairs to get in home) Transportation Available: family or friend will provide Functional Level Prior Prior Functional Level Comment: indep prior to admit, doesn't drive d/t h/o Szs Precautions Precaution Comment: fall & Sz precautions Cognitive Assessment Orientation: disoriented to, time Arousal Level: arouses to voice Impairments Found (describe specific impairments): gait, locomotion, and balance Bed Mobility Additional Documentation: supine to/from sit Assistive Device: none Supine to Sit, Level of [place]: independent Sit to Supine, Level of [place]: independent Transfers Additional Documentation: sit to/from stand Stand-Sit, Level of [place]: contact guard assist [id number], Assistive Device: none Impairments: impaired balance Gait Gait Comments: several LOB w/correction, pt aware of instability & need for assist Level of [place]: minimal assist (75% patient effort) Assistive Device: none Additional Documentation: deviations Gait Deviations: limb motion velocity decreased, step length decreased Safety Issues: balance decreased during turns, step length decreased Sensory Assessment Sensation Comments: intact Range of Motion ROM Testing Results: no range of motion deficits identified Strength Strength Comments: VARGASE noted to be weaker than R & she's left handed L UE Strength: grossly 3+/5 R UE Strength: grossly 5/5 Balance Balance Comments: Tinetti score of 17/28 Sitting Balance: Static: good balance Sitting Balance: Dynamic: good balance Standing Balance: Static: fair balance Standing Balance: Dynamic: fair balance Additional Documentation: Tinetti (group) Goals Reflects last filed data and may be from multiple contributors. All Transfers Goal Most Recent Value LTG Status new at 12/23/2019 1157 LTG [place] Level independent at 12/23/2019 1157 LTG Assistive Device none at 12/23/2019 1157 Gait Goal Most Recent Value LTG Status new at 12/23/2019 1157 LTG [place] Level independent at 12/23/2019 1157 LTG Assistive Device none at 12/23/2019 1157 LTG Distance (feet) 300 at 12/23/2019 1157 Stair Goal Most Recent Value LTG Status new at 12/23/2019 1157 LTG [place] Level modified independent at 12/23/2019 1157 LTG Assistive Device 1 rail at 12/23/2019 1157 LTG Number of Stairs 3 at 12/23/2019 1157 Additional Goal #1 PT Most Recent Value LTG Status new at 12/23/2019 1157 LTG Pt will increase Tinetti score to >=23/28 at 12/23/2019 1157 lan of Care - [facility] Adriana mosqueda RN - 12/23/2019 8:50 AM PDT Problem: Skin Injury Risk Increased Goal: Skin Health and Integrity Outcome: Ongoing, progressing Problem: Seizure, Active Management Goal: Absence of Seizure/Seizure-Related Injury Outcome: Ongoing, progressing lan of Gabe Fung MD - 12/23/2019 8:49 AM PDTPatient stable to be transferred to [facility]. Signout given to Dr. Myers. Neurology consulted. Gabe Bautista MD 8:49 AM 12/23/19 lan of Sally solano, Erika Dodson MD - 12/23/2019 8:41 AM [id number] female with a history of sei zure disorder, depression, alcohol abuse, PTSD, hepatitis C, drug abuse admitted with [facility]. Patient was intubated and admitted to the ICU. She was given multiple doses of benzodi azepines and loaded with Keppra. She was extubated overnight and transferred to the medical floor. EEG is negative for seizures. She was started on Rocephin for left lower lobe pneu monia. Neurology consulted. 20 8:42 AM PDTPlan of Aria Carbajal RN - 12/23/2019 6:39 AM PDT Problem: Nutrition Impairment (Mechanical Ventilation, Invasive) Goal: Optimal Nutrition Delivery Outcome: Met PT passed swallow, ordered breakfast. Problem: Communication Impairment (Mechanical Ventilation, Invasive) Goal: Effective Communication Outcome: Met Problem: Inability to Wean (Mechanical Ventilation, Invasive) Goal: Mechanical Ventilation Liberation Outcome: Met PT passed SBT and was extubated at 0050 to 2 L oxymask. lan of Renetta Schulz RN - 12/22/2019 6:33 PM PDT Problem: Seizure, Active Management Goal: Absence of Seizure/Seizure-Related Injury Intervention: Prevent Seizure-Related Injury Flowsheets (Taken 12/22/2019 1833) Seizure Precautions: clutter-free environment maintained; emergency equipment at bedside; s chanda rails padded documented in is encounter Plan of Treatment + +------+--------+ + + | Name | Type | Priori | Associated Diagnoses | Order Schedule | | | | ty | | | + +------+--------+ + + | Levetiracetam Level | Lab | Routin | Status epilepticus | Expected: | | | | e | ([facility]) | 01/01/2020, Expires: | | | | | | 12/24/2020 | + +------+--------+ + + documented as of this encounter Procedures + +--------+ + + + | Procedure Name | Priori | Date/Time | Associated Diagnosis | Comments | | | ty | | | | + +--------+ + + + | CBC WITH | Routin | 12/25/2019 | | Results for this | | DIFFERENTIAL | e | 4:26 AM | | procedure are in the | | | | PDT | | results section. | + +--------+ + + + | MAGNESIUM | Routin | 12/25/2019 | | Results for this | | | e | 4:26 AM | | procedure are in the | | | | PDT | | results section. | + +--------+ + + + | BASIC METABOLIC | Routin | 12/25/2019 | | Results for this | | PANEL | e | 4:26 AM | | procedure are in the | | | | PDT | | results section. | + +--------+ + + + | CBC NO DIFFERENTIAL | Routin | 12/24/2019 | | Results for this | | | e | 5:57 AM | | procedure are in the | | | | PDT | | results section. | + +--------+ + + + | MAGNESIUM | Routin | 12/24/2019 | | Results for this | | | e | 5:57 AM | | procedure are in the | | | | PDT | | results section. | + +--------+ + + + | BASIC METABOLIC | Routin | 12/24/2019 | | Results for this | | PANEL | e | 5:57 AM | | procedure are in the | | | | PDT | | results section. | + +--------+ + + + | POTASSIUM | WILLIE | 12/23/2019 | | Results for this | | | | 6:05 PM | | procedure are in the | | | | PDT | | results section. | + +--------+ + + + | CBC WITH | WILLIE | 12/23/2019 | | Results for this | | DIFFERENTIAL | | 4:37 AM | | procedure are in the | | | | PDT | | results section. | + +--------+ + + + | PHOSPHORUS | WILLIE | 12/23/2019 | | Results for this | | | | 4:37 AM | | procedure are in the | | | | PDT | | results section. | + +--------+ + + + | MAGNESIUM | WILLIE | 12/23/2019 | | Results for this | | | | 4:37 AM | | procedure are in the | | | | PDT | | results section. | + +--------+ + + + | BASIC METABOLIC | WILLIE | 12/23/2019 | | Results for this | | PANEL | | 4:37 AM | | procedure are in the | | | | PDT | | results section. | + +--------+ + + + | POINT OF CARE | STAT | 12/23/2019 | | | | | | 3:04 AM | | | | | | PDT | | | + +--------+ + + + | HC BLOOD GASES ANY | Routin | 12/22/2019 | | Results for this | | COMBINATION | e | 10:12 PM | | procedure are in the | | | | PDT | | results section. | + +--------+ + + + | POC GLUCOSE (NON | Routin | 12/22/2019 | | Results for this | | ORD) | e | 10:06 PM | | procedure are in the | | | | PDT | | results section. | + +--------+ + + + | EEG | WILLIE | 12/22/2019 | | Results for this | | | | 8:57 PM | | procedure are in the | | | | PDT | | results section. | + +--------+ + + + | MAGNESIUM | STAT | 12/22/2019 | | Results for this | | | | 8:25 PM | | procedure are in the | | | | PDT | | results section. | + +--------+ + + + | LACTIC ACID | STAT | 12/22/2019 | | Results for this | | | | 6:23 PM | | procedure are in the | | | | PDT | | results section. | + +--------+ + + + | XR CHEST AP PORTABLE | STAT | 12/22/2019 | | Results for this | | | | 6:21 PM | | procedure are in the | | | | PDT | | results section. | + +--------+ + + + | CBC WITH | STAT | 12/22/2019 | | Results for this | | DIFFERENTIAL | | 6:19 PM | | procedure are in the | | | | PDT | | results section. | + +--------+ + + + | COMPREHENSIVE | STAT | 12/22/2019 | | Results for this | | METABOLIC PANEL | | 6:19 PM | | procedure are in the | | | | PDT | | results section. | + +--------+ + + + | CULTURE, | Routin | 12/22/2019 | | Results for this | | RESPIRATORY, LOWER, | e | 5:55 PM | | procedure are in the | | SMEAR | | PDT | | results section. | + +--------+ + + + | MRSA NAAT | Routin | 12/22/2019 | | Results for this | | | e | 5:08 PM | | procedure are in the | | | | PDT | | results section. | + +--------+ + + + | POC GLUCOSE (NON | Routin | 12/22/2019 | | Results for this | | ORD) | e | 4:53 PM | | procedure are in the | | | | PDT | | results section. | + +--------+ + + + documented in this encounter Results Basic Metabolic Panel (12/25/2019 4:26 AM PDT) + + + + + + | Component | Value | Ref Range | Performed | Pathologist | | | | | At | Signature | + + + + + + | Na | 140 | 135 - 145 | [facility] | | | | | mmol/L | LABORATORY | | + + + + + + | K | 4.1 | 3.5 - 4.9 | [facility] | [...] + + + + | Glucose | 96 | 65 - 99 mg/dL | [facility] | | | | | | LABORATORY | | + + + + + + | BUN | 8 | 8 - 25 mg/dL | [facility] | | | | | | LABORATORY | | + + + + + + | Creatinine | 0.8 | 0.50 - 1.00 | [facility] | | | | | mg/dL | LABORATORY | | + + + + + + | BUN/Creatin | 10 | | [facility] | | | ine Ratio | | | LABORATORY | | + + + + + + | Calcium | 8.8 | 8.5 - 10.5 | [facility] | | | | | mg/dL | LABORATORY | | + + + + + + | Estimated | >60Comment: GFR <60: | >60 | [facility] | | | GFR | CHRONIC [...] | | | | | | MDRD [facility] traceable | | | | | | equation.Testing | | | | | | performed at [facility], [address] | | | | | | [facility], | | | | | | [place] [address] | | | | + + + + + + + + | Specimen | + + | Blood | + + + + + + + | Performing | Address | City/State/Zipcode | Phone Number | | Organization | | | | + + + + + | [facility] | [address] | [place] [address] | [phone] | + + + + + CBC with Differential (12/25/2019 4:26 AM PDT) + + + + + + | Component | Value | Ref Range | Performed | Pathologist | | | | | At | Signature | + + + + + + | WBC | 8.11 | 3.80 - 11.00 | [facility] | | | | | K/uL | LABORATORY | | + + + + + + | Red Blood | 4.02 | 3.70 - 5.10 | [facility] | | | Cells | | M/uL | LABORATORY | | + + + + + + | Hemoglobin | 11.6 | 11.3 - 15.5 | [facility] | | | | | g/dL | LABORATORY | | + + + + + + | Hematocrit | 34.7 | 34.0 - 46.0 % | [facility] | | | | | | LABORATORY | | + + + + + + | MCV | 86.3 | 80.0 - 100.0 fl | [facility] | | | | | | LABORATORY | | + + + + + + | MCH | 28.9 | 27.0 - 34.0 pg | [facility] | | | | | | LABORATORY | | + + + + + + | MCHC | 33.4 | 32.0 - 35.5 | [facility] | | | | | g/dL | LABORATORY | | + + + + + + | RDW-SD | 45.2 | 37 - 53 fl | [facility] | | | | | | LABORATORY | | + + + + + + | Platelet | 229 | 150 - 400 K/uL | [facility] | | | Count | | | LABORATORY | | + + + + + + | MPV | 9.2Comment: NO NORMAL | fl | [facility] | | | | RANGE ESTABLISHED | | LABORATORY | | + + + + + + | Diff Type | AUTOMATED | | [facility] | | | | | | LABORATORY | | + + + + + + | % nRBC | 0.0 | 0 /100WBC | [facility] | | | | | | LABORATORY | | + + + + + + | % | 73.50 | % | [facility] | | | Neutrophils | | | LABORATORY | | + + + + + + | IMMATURE | 0.40 | % | [facility] | | | GRANULOCYTE | | | LABORATORY | | + + + + + + | % | 18.10 | % | [facility] | | | Lymphocytes | | | LABORATORY | | + + + + + + | Monocyte % | 5.70 | % | [facility] | | | | | | LABORATORY | | + + + + + + | Eosinophils | 1.80 | % | [facility] | | | % | | | LABORATORY | | + + + + + + | Basophils % | 0.50 | % | [facility] | | | | | | LABORATORY | | + + + + + + | Neutrophils | 5.96 | 1.90 - 7.40 | [facility] | | | , Absolute | | K/uL | LABORATORY | | + + + + + + | IMMATURE | 0.03Comment: NOTE NEW | 0.00 - 0.07 | [facility] | | | GRANS AB | REFERENCE RANGE | K/uL | LABORATORY | | + + + + + + | Absolute | 1.47 | 1.00 - 3.90 | [facility] | | | Lymphocytes | | K/uL | LABORATORY | | + + + + + + | Absolute | 0.46 | 0.00 - 0.80 | [facility] | | | Monocytes | | K/uL | LABORATORY | | + + + + + + | Eosinophils | 0.15 | 0.00 - 0.50 | [facility] | | | , Absolute | | K/uL | LABORATORY | | + + + + + + | Basophils, | 0.04Comment: Testing | 0.00 - 0.10 | [facility] | | | Absolute | performed at [facility], [address] | K/uL | LABORATORY | | | | [address], | | | | | | [place] [address] | | | | + + + + + + + + | Specimen | + + | Blood | + + + + + + + | Performing | Address | City/State/Zipcode | Phone Number | | Organization | | | | + + + + + | [facility] | [address] | [place] [address] | [phone] | + + + + + Magnesium (12/25/2019 4:26 AM PDT) + + + + + + | Component | Value | Ref Range | Performed | Pathologist | | | | | At | Signature | + + + + + + | Magnesium | 1.8Comment: Testing | 1.7 - 2.4 mg/dL | [facility] | | | | performed at [facility], [address] | | LABORATORY | | | | [address], | | | | | | [place] [address] | | | | + + + + + + + + | Specimen | + + | Blood | + + + + + + + | Performing | Address | City/State/Zipcode | Phone Number | | Organization | | | | + + + + + | [facility] | [address] | [place] [address] | [phone] | + + + + + Magnesium (12/24/2019 5:57 AM PDT) + + + + + + | Component | Value | Ref Range | Performed | Pathologist | | | | | At | Signature | + + + + + + | Magnesium | 2.0Comment: Testing | 1.7 - 2.4 mg/dL | [facility] | | | | performed at [facility], [address] | | LABORATORY | | | | [address], | | | | | | [place] [address] | | | | + + + + + + + + | Specimen | + + | Blood | + + + + + + + | Performing | Address | City/State/Zipcode | Phone Number | | Organization | | | | + + + + + | [facility] | [address] | [place] [address] | [phone] | + + + + + CBC no Differential (12/24/2019 5:57 AM PDT) + + + + + + | Component | Value | Ref Range | Performed | Pathologist | | | | | At | Signature | + + + + + + | WBC | 11.41 (H) | 3.80 - 11.00 | [facility] | | | | | K/uL | LABORATORY | | + + + + + + | Red Blood | 3.96 | 3.70 - 5.10 | [facility] | | | Cells | | M/uL | LABORATORY | | + + + + + + | Hemoglobin | 11.6 | 11.3 - 15.5 | [facility] | | | | | g/dL | LABORATORY | | + + + + + + | Hematocrit | 34.3 | 34.0 - 46.0 % | [facility] | | | | | | LABORATORY | | + + + + + + | MCV | 86.6 | 80.0 - 100.0 fl | [facility] | | | | | | LABORATORY | | + + + + + + | MCH | 29.3 | 27.0 - 34.0 pg | [facility] | | | | | | LABORATORY | | + + + + + + | MCHC | 33.8 | 32.0 - 35.5 | [facility] | | | | | g/dL | LABORATORY | | + + + + + + | RDW-SD | 46.2 | 37 - 53 fl | [facility] | | | | | | LABORATORY | | + + + + + + | Platelet | 228 | 150 - 400 K/uL | [facility] | | | Count | | | LABORATORY | | + + + + + + | MPV | 9.2Comment: NO NORMAL | fl | [facility] | | | | RANGE ESTABLISHEDTesting | | LABORATORY | | | | performed at [facility], [address] | | | | [address], | | | | | | [place] [address] | | | | + + + + + + + + | Specimen | + + | Blood | + + + + + + + | Performing | Address | City/State/Zipcode | Phone Number | | Organization | | | | + + + + + | [facility] | [address] | [place] [address] | [phone] | + + + + + Basic Metabolic Panel (12/24/2019 5:57 AM PDT) + + + + + + | Component | Value | Ref Range | Performed | Pathologist | | | | | At | Signature | + + + + + + | Na | 141 | 135 - 145 | [facility] | | | | | mmol/L | LABORATORY | | + + + + + + | K | 4.1 | 3.5 - 4.9 | [facility] | [...] + + + + | Glucose | 103 (H) | 65 - 99 mg/dL | [facility] | | | | | | LABORATORY | | + + + + + + | BUN | 8 | 8 - 25 mg/dL | [facility] | | | | | | LABORATORY | | + + + + + + | Creatinine | 0.8 | 0.50 - 1.00 | [facility] | | | | | mg/dL | LABORATORY | | + + + + + + | BUN/Creatin | 10 | | [facility] | | | ine Ratio | | | LABORATORY | | + + + + + + | Calcium | 8.9 | 8.5 - 10.5 | [facility] | [...] | | | | | performed at [facility], [address] | | [address], | | | | | | [place] [address] | | | | + + + + + + + + | Specimen | + + | Blood | + + + + + + + | Performing | Address | City/State/Zipcode | Phone Number | | Organization | | | | + + + + + | [facility] | [address] | [place] [address] | [phone] | + + + + + Potassium (12/23/2019 6:05 PM PDT) + + + + + + | Component | Value | Ref Range | Performed | Pathologist | | | | | At | Signature | + + + + + + | K | 3.7Comment: Testing | 3.5 - 4.9 | [facility] | | | | performed at [facility];[address] | mmol/L | LABORATORY | | | | [address];[place], [place] | | | | | | [address] | | | | + + + + + + + + | Specimen | + + | Blood | + + + + + + + | Performing | Address | City/State/Zipcode | Phone Number | | Organization | | | | + + + + + | [facility] | [address] | [place] [address] | [phone] | + + + + + Phosphorus (12/23/2019 4:37 AM PDT) + + + + + + | Component | Value | Ref Range | Performed | Pathologist | | | | | At | Signature | + + + + + + | Phosphorus | 2.4Comment: Testing | 2.3 - 4.8 mg/dL | [facility] | | | | performed at [facility];[address] | | LABORATORY | | | | [address];[place] | | | | | | [address] | | | | + + + + + + + + | Specimen | + + | Blood | + + + + + + + | Performing | Address | City/State/Zipcode | Phone Number | | Organization | | | | + + + + + | [facility] | [address] | [place] [address] | [phone] | + + + + + Magnesium (12/23/2019 4:37 AM PDT) + + + + + + | Component | Value | Ref Range | Performed | Pathologist | | | | | At | Signature | + + + + + + | Magnesium | 2.2Comment: Testing | 1.7 - 2.4 mg/dL | [facility] | | | | performed at [facility];[address] | | LABORATORY | | | | [address];[place] | | | | | | [address] | | | | + + + + + + + + | Specimen | + + | Blood | + + + + + + + | Performing | Address | City/State/Zipcode | Phone Number | | Organization | | | | + + + + + | [facility] | [address] | [place] [address] | [phone] | + + + + + CBC with Differential (12/23/2019 4:37 AM PDT) + + + + + + | Component | Value | Ref Range | Performed | Pathologist | | | | | At | Signature | + + + + + + | WBC | 22.73 (H) | 3.80 - 11.00 | [facility] | | | | | K/uL | LABORATORY | | + + + + + + | Red Blood | 4.10 | 3.70 - 5.10 | [facility] | | | Cells | | M/uL | LABORATORY | | + + + + + + | Hemoglobin | 12.2 | 11.3 - 15.5 | [facility] | | | | | g/dL | LABORATORY | | + + + + + + | Hematocrit | 35.0 | 34.0 - 46.0 % | [facility] | | | | | | LABORATORY | | + + + + + + | MCV | 85.4 | 80.0 - 100.0 fl | [facility] | | | | | | LABORATORY | | + + + + + + | MCH | 29.8 | 27.0 - 34.0 pg | [facility] | | | | | | LABORATORY | | + + + + + + | MCHC | 34.9 | 32.0 - 35.5 | [facility] | | | | | g/dL | LABORATORY | | + + + + + + | RDW-SD | 44.3 | 37 - 53 fl | [facility] | | | | | | LABORATORY | | + + + + + + | Platelet | 258 | 150 - 400 K/uL | [facility] | | | Count | | | LABORATORY | | + + + + + + | MPV | 8.9Comment: NO NORMAL | fl | [facility] | | | | RANGE ESTABLISHED | | LABORATORY | | + + + + + + | Diff Type | AUTOMATED | | [facility] | | | | | | LABORATORY | | + + + + + + | % nRBC | 0.0 | 0 /100WBC | [facility] | | | | | | LABORATORY | | + + + + + + | % | 90.10 | % | [facility] | | | Neutrophils | | | LABORATORY | | + + + + + + | % | 6.30 | % | [facility] | | | Lymphocytes | | | LABORATORY | | + + + + + + | Monocyte % | 2.80 | % | [facility] | | | | | | LABORATORY | | + + + + + + | Eosinophils | 0.10 | % | [facility] | | | % | | | LABORATORY | | + + + + + + | Basophils % | 0.20 | % | [facility] | | | | | | LABORATORY | | + + + + + + | IMMATURE | 0.50 | % | [facility] | | | GRANULOCYTE | | | LABORATORY | | + + + + + + | Neutrophils | 20.48 (H) | 1.90 - 7.40 | [facility] | | | , Absolute | | K/uL | LABORATORY | | + + + + + + | Absolute | 1.43 | 1.00 - 3.90 | [facility] | | | Lymphocytes | | K/uL | LABORATORY | | + + + + + + | Absolute | 0.64 | 0.00 - 0.80 | [facility] | | | Monocytes | | K/uL | LABORATORY | | + + + + + + | Eosinophils | 0.02 | 0.00 - 0.50 | [facility] | | | , Absolute | | K/uL | LABORATORY | | + + + + + + | Basophils, | 0.05 | 0.00 - 0.10 | [facility] | | | Absolute | | K/uL | LABORATORY | | + + + + + + | IMMATURE | 0.11 (H) | 0.00 - 0.07 | [facility] | | | GRANS AB | | K/uL | LABORATORY | | [...] Comment | SLIDE SCANNED, AGREES | | [facility] | | | | WITH AUTOMATED | | LABORATORY | | | | RESULTS.Comment: Testing | | | | | | performed at [facility];[address] | | | | | | [address];[place], [place] | | | | | | [address] | | | | + + + + + + + + | Specimen | + + | Blood | + + + + + + + | Performing | Address | City/State/Zipcode | Phone Number | | Organization | | | | + + + + + | [facility] | [address] | [place] [address] | [phone] | + + + + + Basic Metabolic Panel (12/23/2019 4:37 AM PDT) + + + + [...] + + + + | K | 3.2 (L) | 3.5 - 4.9 | [facility] | | | | | mmol/L | LABORATORY | | + + + + + + | Cl | 106 | 99 - 109 mmol/L | [facility] | | | | | | LABORATORY | | + + + + + + | CO2 | 24 | 23 - 32 mmol/L | [facility] | | | | | | LABORATORY | | + + + + + + | Anion Gap | 12 | 5 - 20 mmol/L | [facility] | | | | | | LABORATORY | | + + + + + + | Glucose | 120 (H) | 65 - 99 mg/dL | [facility] | | | | | | LABORATORY | | + + + + + + | BUN | <5 (L) | 8 - 25 mg/dL | [facility] | | | | | | LABORATORY | | + + + + + + | Creatinine | 0.83 | 0.50 - 1.00 | [facility] | | | | | mg/dL | LABORATORY | | + + + + + + | BUN/Creatin | UNABLE TO CALCULATE | | [facility] | | | ine Ratio | | | LABORATORY | | + + + + + + | Calcium | 8.8 | 8.5 - 10.5 | [facility] | | | | | mg/dL | LABORATORY | | + + + + + + | Estimated | >60Comment: GFR <60: | >60 | [facility] | | | GFR | CHRONIC [...] | | | | | performed at [facility];[address] | | | | | | [facility];[place], [place] | | | | | | [address] | | | | + + + + + + + + | Specimen | + + | Blood | + + + + + + + | Performing | Address | City/State/Zipcode | Phone Number | | Organization | | | | + + + + + | [facility] | [address] | [place] [address] | [phone] | + + + + + Blood gas, Arterial (12/22/2019 10:12 PM PDT) + + + + + + | Component | Value | Ref Range | Performed | Pathologist | | | | | At | Signature | + + + + + + | FiO2, POC | 25 | % | [facility] | | | | | | LABORATORY | | + + + + + + | pH, | 7.382Comment: This test | 7.350 - 7.450 | [facility] | | | Arterial, | was developed and its | | LABORATORY | | | POC | performance | | | | | | characteristics | | | | | | determined bybott, it | | | | | | has not been cleared or | | | | | | approved by the [place] FDA. | | | | | | Clinicians should | | | | | | beadvised to consider a | | | | | | patient's signs, | | | | | | symptoms, history, and | | | | | | results of | | | | | | otherdiagnostic tests | | | | | | when interpreting | | | | | | results from these | | | | | | cartridges. | | | | + + + + + + | pCO2, | 39 | 35 - 45 mmHg | [facility] | | | Arterial | | | LABORATORY | | + + + + + + | pO2, | 88 | 80 - 105 mmHg | [facility] | | | Arterial | | | LABORATORY | | + + + + + + | HCO3, | 23 | 22 - 26 mmol/L | [facility] | | | Arterial | | | LABORATORY | | + + + + + + | TCO2, | 24 | 23 - 27 mEq/L | [facility] | | | Arterial, | | | LABORATORY | | | POC | | | | | + + + + + + | POC Base | 2 | 0.0 - 2.0 | [facility] | | | Deficit | | mmol/L | LABORATORY | | | mmol/L | | | | | + + + + + + | SO2, | 97Comment: Testing | 95 - 98 % | [facility] | | | Arterial, | performed at [facility];[address] | | LABORATORY | | | POC | [address];[place] | | | | | | [address] | | | | + + + + + + + + | Specimen | + + | | + + + + + + + | Performing | Address | City/State/Zipcode | Phone Number | | Organization | | | | + + + + + | [facility] | [address] | [place] [address] | [phone] | + + + + + POC Glucose (12/22/2019 10:06 PM PDT) + + + + + + | Component | Value | Ref Range | Performed | Pathologist | | | | | At | Signature | + + + + + + | Glucose, | 112 (H)Comment: Testing | 65 - 99 mg/dL | [facility] | | | POC | performed at [facility];[address] | | LABORATORY | | | | [address];[place], [place] | | | | | | [address] | | | | + + + + + + + + | Specimen | + + | | + + + + + + + | Performing | Address | City/State/Zipcode | Phone Number | | Organization | | | | + + + + + | [facility] | [address] | [place] [address] | [phone] | + + + + + EEG (12/22/2019 8:57 PM PDT) + + + | Narrative | Performed At | + + + | Juan J Soriano, Neurodiagnostic Tech 12/22/2019 8:58 PM | | | [facility] [address] [facility] | | | [place] [address] Patient: Steffi Bishop ID: [id number] | | | : 1965 Age: 54 Gender: female Room #: 43166 | | | Physician: Pérez Paul Supervisor Long Goods: Juan J Soriano Ref. | | | Physician: Gabe Bautista MD Recording Date: 12/22/2019 | | | Duration: 00:45:19 Report Date: 12/22/2019 8:50 PM | | | Medications: dilaudid, propofol History: The patient is a 54 y.o. | | | female with significant past medical history of known seizures, | | | depression, alcohol abuse, PTSD, hep C infection, drug abuse, who | | | was found to be seizing. The patient lives on the [facility] and | | | was found by her friend seizing who then called EMS and the family | | | underscore that the patient was found to have another seizure not | | | protecting the airway status continued at which point decision was | | | made to intubate the patient in route to the ED. In the ED patient | | | was given multiple doses of benzos and was loaded up with thousand | | | grams of Keppra EEG Description: Background: Occipital rhythm: | | | Present at times Frequency: 7-8 Hz Voltage: Medium | | | Organization: Fair Reactivity to eye opening/closure: Fair | | | Other background activity: The first 1/3 of the EEG was limited due | | | to movement and muscle artifact. The rest of the EEG was dominated | | | by intermittent widespread low voltage slow activity with | | | superimposed alpha and beta activity. Sleep: No definite sleep | | | structures. Activation: Hyperventilation: Not done. Photic | | | Stimulation: Done - 6 Hz. Response to PS: No definite PS. EEG | | | Diagnosis: This limited EEG is suggestive of generalized | | | nonspecific cerebral dysfunction. No ictal discharges were seen. | | | Clinical correlation is recommended. | | | | | + + + Magnesium (12/22/2019 8:25 PM PDT) + + + + + + | Component | Value | Ref Range | Performed | Pathologist | | | | | At | Signature | + + + + + + | Magnesium | 1.8Comment: Testing | 1.7 - 2.4 mg/dL | [facility] | | | | performed at [facility] [place];[address] | | LABORATORY | | | | [address];[place] | | | | | | [id number] | | | | + + + + + + + + | Specimen | + + | Blood | + + + + + + + | Performing | Address | City/State/Zipcode | Phone Number | | Organization | | | | + + + + + | [facility] | [address] | [place] [address] | [phone] | + + + + + Lactic Acid (12/22/2019 6:23 PM PDT) + + + + + + | Component | Value | Ref Range | Performed | Pathologist | | | | | At | Signature | + + + + + + | Lactate, | 0.9Comment: Testing | 0.4 - 2.0 | [facility] | | | Serum | performed at [facility] [place];888 | mmol/L | LABORATORY | | | | [address];[place], [place] | | | | | | [phone] | | | | + + + + + + + + | Specimen | + + | Blood | + + + + + + + | Performing | Address | City/State/Zipcode | Phone Number | | Organization | | | | + + + + + | [facility] | [address] | [place] [address] | [phone] | + + + + + XR Chest AP Portable (12/22/2019 6:21 PM PDT) + + | Specimen | + + | | + + + + + | Impressions | Performed At | + + + | Support apparatus in satisfactory position. Signed by: | [facility] | | Daija Aldrich, Tara Sign Date/Time: 12/22/2019 6:50 PM | | + + + + + + | Narrative | Performed At | + + + | CHEST PORTABLE ONE VIEW CLINICAL INFORMATION: Status post | [facility] | | intubation and OG tube placement. COMPARISON: XR CHEST AP | | | PORTABLE (06/26/2019); FINDINGS: Endotracheal tube terminates 4.2 | | | cm above the óscar. Enteric tube tip and side port overlie the | | | stomach. Stable cardiomediastinal contours. Mildly prominent | | | pulmonary vasculature with left greater than right perihilar | | | opacities, possibly reflecting asymmetric edema or infection, and | | | similar to prior. No pleural effusions. No pneumothorax. No | | | acute osseous change. | | + + + + + | Procedure Note | + + | Kali, Rad Results In - 12/22/2019 6:53 PM PDT | | CHEST PORTABLE ONE VIEW | | | | CLINICAL INFORMATION: | | Status post intubation and OG tube placement. | | | | COMPARISON: | | XR CHEST AP PORTABLE (06/26/2019); | | | | FINDINGS: | | Endotracheal tube terminates 4.2 cm above the óscar. Enteric tube tip | | and side port overlie the stomach. Stable cardiomediastinal contours. | | Mildly prominent pulmonary vasculature with left greater than right | | perihilar opacities, possibly reflecting asymmetric edema or infection, | | and similar to prior. No pleural effusions. No pneumothorax. No | | acute osseous change. | | | | IMPRESSION: | | Support apparatus in satisfactory position. | | | | | | | | Signed by: Daija Aldrich Wendy | | Sign Date/Time: 12/22/2019 6:50 PM | + + + +---------+ + + | Performing | Address | City/State/Zipcode | Phone Number | | Organization | | | | + +---------+ + + | [facility] | | | | + +---------+ + + CBC with Differential (12/22/2019 6:19 PM PDT) + + + + + + | Component | Value | Ref Range | Performed | Pathologist | | | | | At | Signature | + + + + + + | WBC | 18.71 (H) | 3.80 - 11.00 | [facility] | | | | | K/uL | LABORATORY | | + + + + + + | Red Blood | 4.10 | 3.70 - 5.10 | [facility] | | | Cells | | M/uL | LABORATORY | | + + + + + + | Hemoglobin | 12.3 | 11.3 - 15.5 | [facility] | | | | | g/dL | LABORATORY | | + + + + + + | Hematocrit | 34.6 | 34.0 - 46.0 % | [facility] | | | | | | LABORATORY | | + + + + + + | MCV | 84.4 | 80.0 - 100.0 fl | [facility] | | | | | | LABORATORY | | + + + + + + | MCH | 30.0 | 27.0 - 34.0 pg | [facility] | | | | | | LABORATORY | | + + + + + + | MCHC | 35.5 | 32.0 - 35.5 | [facility] | | | | | g/dL | LABORATORY | | + + + + + + | RDW-SD | 42.6 | 37 - 53 fl | [facility] | | | | | | LABORATORY | | + + + + + + | Platelet | 257 | 150 - 400 K/uL | [facility] | | | Count | | | LABORATORY | | + + + + + + | MPV | 8.6Comment: NO NORMAL | fl | [facility] | | | | RANGE ESTABLISHED | | LABORATORY | | + + + + + + | Diff Type | AUTOMATED | | [facility] | | | | | | LABORATORY | | + + + + + + | % nRBC | 0.0 | 0 /100WBC | [facility] | | | | | | LABORATORY | | + + + + + + | % | 86.00 | % | [facility] | | | Neutrophils | | | LABORATORY | | + + + + + + | IMMATURE | 0.50 | % | [facility] | | | GRANULOCYTE | | | LABORATORY | | + + + + + + | % | 9.20 | % | [facility] | | | Lymphocytes | | | LABORATORY | | + + + + + + | Monocyte % | 3.90 | % | [facility] | | | | | | LABORATORY | | + + + + + + | Eosinophils | 0.20 | % | [facility] | | | % | | | LABORATORY | | + + + + + + | Basophils % | 0.20 | % | [facility] | | | | | | LABORATORY | | + + + + + + | Neutrophils | 16.08 (H) | 1.90 - 7.40 | [facility] | | | , Absolute | | K/uL | LABORATORY | | + + + + + + | IMMATURE | 0.10 (H)Comment: NOTE | 0.00 - 0.07 | [facility] | | | GRANS AB | NEW REFERENCE RANGE | K/uL | LABORATORY | | + + + + + + | Absolute | 1.73 | 1.00 - 3.90 | [facility] | | | Lymphocytes | | K/uL | LABORATORY | | + + + + + + | Absolute | 0.73 | 0.00 - 0.80 | [facility] | | | Monocytes | | K/uL | LABORATORY | | + + + + + + | Eosinophils | 0.04 | 0.00 - 0.50 | [facility] | | | , Absolute | | K/uL | LABORATORY | | + + + + + + | Basophils, | 0.03Comment: Testing | 0.00 - 0.10 | [facility] | | | Absolute | performed at [facility];[address] | K/uL | LABORATORY | | | | [address];[place], [place] | | | | | | [address] | | | | + + + + + + + + | Specimen | + + | Blood | + + + + + + + | Performing | Address | City/State/Zipcode | Phone Number | | Organization | | | | + + + + + | [facility] | [address] | [place] [address] | [phone] | + + + + + Comprehensive Metabolic Panel (12/22/2019 6:19 PM PDT) + + + + + + | Component | Value | Ref Range | Performed | Pathologist | | | | | At | Signature | + + + + + + | Na | 137 | 135 - 145 | [facility] | [...] + + + + | CO2 | 24 | 23 - 32 mmol/L | [facility] | | | | | | LABORATORY | | + + + + + + | Anion Gap | 12 | 5 - 20 mmol/L | [facility] | | | | | | LABORATORY | | + + + + + + | Glucose | 103 (H) | 65 - 99 mg/dL | [facility] | | | | | | LABORATORY | | + + + + + + | BUN | <5 (L) | 8 - 25 mg/dL | [facility] | | | | | | LABORATORY | | + + + + + + | Creatinine | 0.76 | 0.50 - 1.00 | [facility] | | | | | mg/dL | LABORATORY | | + + + + + + | BUN/Creatin | UNABLE TO CALCULATE | | [facility] | | | ine Ratio | | | LABORATORY | | + + + + + + | Calcium | 8.3 (L) | 8.5 - 10.5 | [facility] | | | | | mg/dL | LABORATORY | | + + + + + + | Protein, | 6.3 | 6.3 - 8.2 g/dL | [facility] | | | Total | | | LABORATORY | | + + + + + + | Albumin | 3.7 | 3.6 - 5.0 g/dL | [facility] | | | | | | LABORATORY | | + + + + + + | Globulin | 2.6 | 1.3 - 4.9 g/dL | [facility] | | | | | | LABORATORY | | + + + + + + | A/G Ratio | 1.4 | 1.0 - 2.4 | [facility] | | | | | | LABORATORY | | + + + + + + | BILIRUBIN, | 0.5 | 0.1 - 1.5 mg/dL | [facility] | | | TOTAL | | | LABORATORY | | + + + + + + | ALK PHOS | 99 | 35 - 115 U/L | [facility] | | | | | | LABORATORY | | + + + + + + | AST | 33 | 10 - 45 U/L | [facility] | | | | | | LABORATORY | | + + + + + + | ALT | 19 | 10 - 65 U/L | [facility] | | | | | | LABORATORY | | + + + + + + | Estimated | >60Comment: GFR <60: | >60 | [facility] | | | GFR | CHRONIC [...] | | | | | performed at [facility] | | | | | | [facility];[place], [place] | | | | | | [address] | | | | + + + + + + + + | Specimen | + + | Blood | + + + + + + + | Performing | Address | City/State/Zipcode | Phone Number | | Organization | | | | + + + + + | [facility] | [address] | [place] [address] | [phone] | + + + + + Culture, Respiratory, Lower, Smear (12/22/2019 5:55 PM PDT) + + + + + [...] + + + + | RESULT | 2+NORMAL UPPER | | [facility] | | | | RESPIRATORY LU | | LABORATORY | | | | | | | | + + + + + + | RESULT | NO FURTHER WORKUP | | [facility] | | | | | | LABORATORY | | + + + + + + | RESULT | Testing performed at | | [facility] | | | | [facility], [address] | | LABORATORY | | | | [place], [place], [place] | | | | | | [id number]: Testing | | | | | | performed at [facility], [address] | | | | | | [facility], | | | | | | [place] [address] | | | | + + + + + + + + | Specimen | + + | Body Fluid - Sputum | | specimen obtained by | | aspiration | | (specimen) | + + + + + + + | Performing | Address | City/State/Zipcode | Phone Number | | Organization | | | | + + + + + | [facility] | [address] | [place] [address] | [phone] | + + + + + MRSA NAAT (12/22/2019 5:08 PM PDT) + + + + + + | Component | Value | Ref Range | Performed | Pathologist | | | | | At | Signature | + + + + + + | SOURCE: | NARES(NOSE) | | [facility] | | | | | | LABORATORY | | + + + + + + | Result | NEGATIVEComment: Testing | MRSNEG | VINNY | | | | performed at [facility];[address] | | LABORATORY | | | | [address];[place] | | | | | | [address] | | | | + + + + + + + + | Specimen | + + | Tissue - Both | | anterior nares (body | | structure) | + + + + + + + | Performing | Address | City/State/Zipcode | Phone Number | | Organization | | | | + + + + + | [facility] | [address] | [place] [address] | [phone] | + + + + + POC Glucose (12/22/2019 4:53 PM PDT) + + + + + + | Component | Value | Ref Range | Performed | Pathologist | | | | | At | Signature | + + + + + + | Glucose, | 110 (H)Comment: Testing | 65 - 99 mg/dL | [facility] | | | POC | performed at [facility];[address] | | LABORATORY | | | | [address];[place], [place] | | | | | | [address] | | | | + + + + + + + + | Specimen | + + | | + + + + + + + | Performing | Address | City/State/Zipcode | Phone Number | | Organization | | | | + + + + + | [facility] | [address] | [place] [address] | [phone] | + + + + + documented in this encounter Visit Diagnoses + + | Diagnosis | + + | Seizure disorder (HCC) - Primary Unspecified epilepsy without mention of intractable | | epilepsy | + + | Status epilepticus (HCC) Epileptic grand mal status | + + | Smoker Tobacco use disorder | + + | History of alcohol abuse Nondependent alcohol abuse, in remission | + + | History of posttraumatic stress disorder (PTSD) | + + | Post-ictal state (HCC) | + + | 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HCC) Nondependent amphetamine or related acting sympathomimetic abuse, | | unspecified | + + | Chronic hepatitis C without hepatic coma (HCC) | + + documented in this encounter Administered Medications + +--------+ +--------+------+------+ | Medication Order | MAR | Action | Dose | Rate | Site | | | Action | Date | | | | + +--------+ +--------+------+------+ | acetaminophen (TYLENOL) tablet | Given | 12/25/19 | 650 mg | | | | 650 mg 650 mg, Oral, EVERY 4 | | 20 5:50 | | | | | HOURS PRN, Pain, or fever >= 38.6 | | AM PDT | | | | | C (101.5 F), Starting Sat | | | | | | | 12/23/19 at 1052 | | | | | | + +--------+ +--------+------+------+ +-------+ +--------+---+---+ | Given | 12/24/19 | 650 mg | | | | | 20 11:54 | | | | | | PM PDT | | | | +-------+ +--------+---+---+ | Given | 12/24/19 | 650 mg | | | | | 20 9:14 | | | | | | AM PDT | | | | +-------+ +--------+---+---+ +---+---+ | | | +---+---+ + +---------+ +-----+-------+---+ | cefTRIAXone (ROCEPHIN) IVPB 1 g | New Bag | 12/22/19 | 1 g | 100 | | | 1 g, Intravenous, Administer | | 20 6:45 | | mL/hr | | | over 30 Minutes, EVERY 24 HOURS | | PM PDT | | | | | (Daily), First dose on Wed | | | | | | | 12/22/19 at 1830, Keep in | | | | | | | refrigerator., Indications: | | | | | | | Community Acquired Pneumonia | | | | | | + +---------+ +-----+-------+---+ +---+---+ | | | +---+---+ + +---------+ +-----+-------+---+ | cefTRIAXone (ROCEPHIN) IVPB 1 g | New Bag | 12/23/19 | 1 g | 100 | | | 1 g, Intravenous, Administer | | 20 5:53 | | mL/hr | | | over 30 Minutes, EVERY 24 HOURS | | PM PDT | | | | | (Daily), First dose on Sat | | | | | | | 12/23/19 at 1800, Keep in | | | | | | | refrigerator., Indications: | | | | | | | Community Acquired Pneumonia | | | | | | + +---------+ +-----+-------+---+ +---+---+ | | | +---+---+ + + + + +-------+---+ | dexmedetomidine in saline | Rate/Dos | 12/22/19 | 0.8 | 12.6 | | | (PRECEDEX) 4 mcg/mL infusion | e Change | 20 11:56 | mcg/kg/h | mL/hr | | | 0-1.5 mcg/kg/hr | | PM PDT | r | | | | 63.1 kg (0-23.6625 mL/hr, | | | | | | | rounded to 0-23.7 mL/hr), at | | | | | | | 0-23.7 mL/hr, Intravenous, | | | | | | | TITRATED, Starting 12/22/19 at | | | | | | | 2245, Titration Instruction: See | | | | | | | below, Goal: RASS -2 to 0, | | | | | | | Initial dose: 0.2 mcg/kg/hr, | | | | | | | Increase rate by: 0.2 mcg/kg/hr | | | | | | | every 10 minutes., Decrease rate | | | | | | | by: 0.2 mcg/kg/hr every 10 | | | | | | | minutes., *: Titrate drug per | | | | | | | order as tolerated. Titration may | | | | | | | vary based on the patient | | | | | | | | | | | | | | s critical condition. | | | | | | + + + + +-------+---+ + + + +-------+---+ | Rate/Dose Change | 12/22/19 | 0.6 | 9.5 | | | | 20 11:36 | mcg/kg/h | mL/hr | | | | PM PDT | r | | | + + + +-------+---+ | Rate/Dose Change | 12/22/19 | 0.4 | 6.3 | | | | 20 11:07 | mcg/kg/h | mL/hr | | | | PM PDT | r | | | + + + +-------+---+ +---+---+ | | | +---+---+ + +-------+ +--------+---+---+ | docusate sodium (COLACE) | Given | 12/22/19 | 100 mg | | | | capsule 100 mg 100 mg, Oral, | | 20 8:19 | | | | | TIMES DAILY, First dose on Wed | | PM PDT | | | | | 12/22/19 at 2100, Hold for loose | | | | | | | stools, | | | | | | + +-------+ +--------+---+---+ + +---+ | | | + +---+ | docusate sodium (COLACE) | | | capsule 100 mg 100 mg, Oral, 2 | | | TIMES DAILY PRN, Constipation, | | | Starting 12/23/19 at 1052, 1st | | | line agent for constipation | | | relief., | | + +---+ | | | + +---+ + +-------+ +-------+---+ + | enoxaparin (LOVENOX) 40 mg/0.4 | Given | 12/24/19 | 40 mg | | Abdomen- | | mL injection 40 mg 40 mg, | | 20 1:00 | | | RUQ | | Subcutaneous, EVERY 24 HOURS | | PM PDT | | | | | (Daily), First dose on Sat | | | | | | | 12/23/19 at 1200 | | | | | | + +-------+ +-------+---+ + +-------+ +-------+---+ + | Given | 12/23/19 | 40 mg | | Abdomen- | | | 20 11:37 | | | RLQ | | | AM PDT | | | | +-------+ +-------+---+ + +---+---+ | | | +---+---+ + +-------+ +------+---+---+ | folic acid tablet 1 mg 1 mg, | Given | 12/25/19 | 1 mg | | | | Oral, DAILY, First dose on Sun | | 20 8:15 | | | | | 12/24/19 at 0900 | | AM PDT | | | | + +-------+ +------+---+---+ +-------+ +------+---+---+ | Given | 12/24/19 | 1 mg | | | | | 20 9:12 | | | | | | AM PDT | | | | +-------+ +------+---+---+ +---+---+ | | | +---+---+ + +-------+ +--------+---+ + | heparin 5,000 units/mL | Given | 12/22/19 | 5,000 | | Abdomen- | | injection 5,000 Units 5,000 | | 20 8:19 | Units | | LLQ | | Units, Subcutaneous, EVERY 12 | | PM PDT | | | | | HOURS (2 times per day), First | | | | | | | dose on Wed12/22/19 at 2100 | | | | | | + +-------+ +--------+---+ + +---+---+ | | | +---+---+ + + + +-------+-------+---+ | HYDROmorphone in saline | Rate/Dos | 12/22/19 | 0.4 | 0.4 | | | (DILAUDID) 1 mg/mL infusion 0-5 | e Change | 20 11:57 | mg/hr | mL/hr | | | mg/hr (0-5 mL/hr), at 0-5 mL/hr, | | PM PDT | | | | | Intravenous, TITRATED, Starting | | | | | | | Wed12/22/19 at 1715, Titration | | | | | | | Instruction: See below, Goal: | | | | | | | Pain score (NRS) less than 6, | | | | | | | Initial dose: 0.2 mg/hr, Increase | | | | | | | rate by: 0.2 mg/hr every 30 | | | | | | | minutes., Decrease rate by: 0.2 | | | | | | | mg/hr every 30 minutes., *: | | | | | | | Titrate drug per order as | | | | | | | tolerated. Titration may vary | | | | | | | based on the patient | | | | | | | | | | | | | | s critical condition. | | | | | | + + + +-------+-------+---+ + + +-------+-------+---+ | Rate/Dose Change | 12/22/19 | 0.6 | 0.6 | | | | 20 9:39 | mg/hr | mL/hr | | | | PM PDT | | | | + + +-------+-------+---+ | Rate/Dose Change | 12/22/19 | 0.4 | 0.4 | | | | 20 7:28 | mg/hr | mL/hr | | | | PM PDT | | | | + + +-------+-------+---+ +---+---+ | | | +---+---+ + +-------+ +--------+---+---+ | levETIRAcetam (KEPPRA) tablet | Given | 12/22/19 | 500 mg | | | | 500 mg 500 mg, Oral, 2 TIMES | | 20 8:20 | | | | | DAILY, First dose on Wed12/22/19 | | PM PDT | | | | | at 2100 | | | | | | + +-------+ +--------+---+---+ +---+---+ | | | +---+---+ + +-------+ +--------+---+---+ | levETIRAcetam (KEPPRA) tablet | Given | 12/25/19 | 750 mg | | | | 750 mg 750 mg, Oral, 2 TIMES | | 20 8:15 | | | | | DAILY, First dose on 12/23/19 | | AM PDT | | | | | at 1100 | | | | | | + +-------+ +--------+---+---+ +-------+ +--------+---+---+ | Given | 12/24/19 | 750 mg | | | | | 20 8:32 | | | | | | PM PDT | | | | +-------+ +--------+---+---+ | Given | 12/24/19 | 750 mg | | | | | 20 9:12 | | | | | | AM PDT | | | | +-------+ +--------+---+---+ +---+---+ | | | +---+---+ + +-------+ +--------+---+---+ | levoFLOXacin (LEVAQUIN) tablet | Given | 12/25/19 | 500 mg | | | | 500 mg 500 mg, Oral, DAILY, | | 20 8:15 | | | | | First dose on 12/24/19 at | | AM PDT | | | | | 0900, Give 2 hours before or 2 | | | | | | | hours after antacids, iron, or | | | | | | | zinc., Indications: Community | | | | | | | Acquired Pneumonia | | | | | | + +-------+ +--------+---+---+ +-------+ +--------+---+---+ | Given | 12/24/19 | 500 mg | | | | | 20 9:14 | | | | | | AM PDT | | | | +-------+ +--------+---+---+ + +---+ | | | + +---+ | LORazepam (ATIVAN) injection | | | 1-4 mg 1-4 mg, Intravenous, PRN, | | | Withdrawal Symptoms, Starting | | | 4/18/20 at 1148, CIWA less | | | than 9: No dose, reassess in 4 | | | hours CIWA 9-14: Give 1 mg, | | | reassess in 2 hours CIWA 15-20: | | | Give 2 mg, reassess in 1 hour | | | CIWA 21-25: Give 3 mg, reassess | | | in 30 minutes CIWA greater than | | | 25: 4 mg, reassess in 30 minutes, | | | | | + +---+ | | | + +---+ | magnesium hydroxide (MILK OF | | | MAGNESIA) 400 mg/5 mL suspension | | | 30 mL 30 mL, Oral, NIGHTLY PRN, | | | Constipation, Starting Sat | | | 12/23/19 at 1052, If docusate, | | | senna, and polyethylene glycol | | | ineffective x 24 hours or not | | | ordered, | | + +---+ | | | + +---+ + +---------+ +-----+ +---+ | magnesium sulfate 2 g/50 mL | New Bag | 12/22/19 | 2 g | 25 mL/hr | | | IVPB 2 g 2 g, Intravenous, | | 20 9:36 | | | | | Administer over 120 Minutes, PRN, | | PM PDT | | | | | Per protocol, Starting Fri | | | | | | | 12/22/19 at 1650, ICU Use Only | | | | | | | Protocol NOT recommended if Scr | | | | | | | > 1.8, dialysis patients or CrCl | | | | | | | < 50 mL/min Magnesium = 1-1.9 | | | | | | | mg/dL Give magnesium sulfate 2 | | | | | | | g IV x1 * Check magnesium 2 | | | | | | | hours after infusion is completed | | | | | | | If magnesium still < 1.9 | | | | | | | mg/dL,replace as indicated per | | | | | | | protocol Maximum recommended | | | | | | | infusion rate = 1 gram/hour., | | | | | | + +---------+ +-----+ +---+ + +---+ | | | + +---+ | melatonin tablet 3 mg 3 mg, | | | Oral, NIGHTLY PRN, Insomnia, | | | Starting 12/23/19 at 1052 | | + +---+ | | | + +---+ + +-------+ +-------+---+---+ | midodrine (PROAMATINE) tablet | Given | 12/23/19 | 10 mg | | | | 10 mg 10 mg, Oral, 3 TIMES DAILY | | 20 9:17 | | | | | PRN, for SBP<90, Starting Sat | | AM PDT | | | | | 12/23/19 at 0847 | | | | | | + +-------+ +-------+---+---+ +---+---+ | | | +---+---+ + +-------+ +------+---+---+ | ondansetron (ZOFRAN ODT) | Given | 12/25/19 | 4 mg | | | | disintegrating tablet 4 mg 4 mg, | | 20 5:45 | | | | | Oral, EVERY 6 HOURS PRN, Nausea, | | AM PDT | | | | | Vomiting, Starting 12/23/19 | | | | | | | at 1052, First line agent, | | | | | | + +-------+ +------+---+---+ + +---+ | | | + +---+ | polyethylene glycol (MIRALAX) | | | powder 17 g 17 g, Oral, DAILY | | | PRN, Constipation, Starting Sat | | | 12/23/19 at 1052, If docusate and | | | senna ineffective or not | | | ordered., | | + +---+ | | | + +---+ + +-------+ +--------+---+---+ | potassium chloride (KLOR-CON) | Given | 12/23/19 | 20 mEq | | | | ER tablet 20-40 mEq 20-40 mEq, | | 20 8:38 | | | | | Oral, DAILY PRN, Per protocol, | | PM PDT | | | | | Starting 12/23/19 at 1053, | | | | | | | [...] | | | replacement is done. Give tablet | | | | | | | or liquid but never both. If | | | | | | | repeat K is still < 3.5, contact | | | | | | | provider for further instruction. | | | | | | | May take with food to decrease | | | | | | | GI upset., | | | | | | + +-------+ +--------+---+---+ + +---+ | | | + +---+ | potassium chloride (KLOR-CON) | | | packet 20-40 mEq 20-40 mEq, Per | | | G Tube, DAILY PRN, Per Protocol, | | | Starting 12/23/19 at 1053, | | | NON-ICU Protocol Replace | [...] | | | replacement is done. Give tablet | | | or liquid but never both. If | | | repeat K is still < 3.5, contact | | | provider for further | | | instruction., | | + +---+ | | | + +---+ + +-------+ +--------+---+---+ | potassium chloride (KLOR-CON) | Given | 12/23/19 | 60 mEq | | | | packet 40-60 mEq 40-60 mEq, | | 20 6:18 | | | | | Feeding Tube, PRN, Per Protocol, | | AM PDT | | | | | Starting Wed12/22/19 at 1652, | | | | | | | [...] +-------+ +--------+---+---+ +-------+ +--------+---+---+ | Given | 12/22/19 | 40 mEq | | | | | 20 9:36 | | | | | | PM PDT | | | | +-------+ +--------+---+---+ +---+---+ | | | +---+---+ + + + + +-------+---+ | propofol infusion (DIPRIVAN) 10 | Rate/Dos | 12/22/19 | 10 | 3.8 | | | mg/mL infusion 10-70 mcg/kg/min | e Change | 20 11:36 | mcg/kg/m | mL/hr | | | | | PM PDT | in | | | | 63.1 kg (3.786-26.502 mL/hr, | | | | | | | rounded to 3.8-26.5 mL/hr), at | | | | | | | 3.8-26.5 mL/hr, Intravenous, | | | | | | | TITRATED, Starting 12/22/19 at | | | | | | | 1815, Shake well. Do not filter. | | [...] + + +-------+---+ | Rate/Dose Change | 12/22/19 | 15 | 5.7 | | | | 20 11:06 | mcg/kg/m | mL/hr | | | | PM PDT | in | | | + + + +-------+---+ | Rate/Dose Change | 12/22/19 | 20 | 7.6 | | | | 20 10:48 | mcg/kg/m | mL/hr | | | | PM PDT | in | | | + + + +-------+---+ + +---+ | | | + +---+ | propofol infusion (DIPRIVAN) 10 | | | mg/mL Starting 12/22/19 at | | | 1648, For 1 dose, Azeem, | | | Bisi: xaviert override, | | + +---+ | | | + +---+ | senna (SENOKOT) tablet 8.6 mg | | | 8.6 mg, Oral, 2 TIMES DAILY PRN, | | | Constipation, Starting Sat | | | 12/23/19 at 1052, If docusate | | | ineffective or not ordered., | | + +---+ | | | + +---+ + +-------+ +-------+---+---+ | sertraline (ZOLOFT) tablet 25 | Given | 12/25/19 | 25 mg | | | | mg 25 mg, Oral, DAILY, First | | 20 8:16 | | | | | dose on 12/23/19 at 0915 | | AM PDT | | | | + +-------+ +-------+---+---+ +-------+ +-------+---+---+ | Given | 12/24/19 | 25 mg | | | | | 20 9:17 | | | | | | AM PDT | | | | +-------+ +-------+---+---+ | Given | 12/23/19 | 25 mg | | | | | 20 9:18 | | | | | | AM PDT | | | | +-------+ +-------+---+---+ +---+---+ | | | +---+---+ + +---------+ +--------+-------+---+ | thiamine (VITAMIN B-1) 100 mg | New Bag | 12/23/19 | 100 mg | 102 | | | in sodium chloride 0.9% 50 mL | | 20 6:18 | | mL/hr | | | IVPB 100 mg, Intravenous, | | AM PDT | | | | | Administer over 30 Minutes, ONCE, | | | | | | | 12/23/19 at 0530, For 1 dose | | | | | | + +---------+ +--------+-------+---+ +---+---+ | | | +---+---+ + +-------+ +--------+---+---+ | thiamine (VITAMIN B-1) tablet | Given | 12/25/19 | 100 mg | | | | 100 mg 100 mg, Oral, DAILY, | | 20 8:15 | | | | | First dose on 12/23/19 at 0915 | | AM PDT | | | | + +-------+ +--------+---+---+ +-------+ +--------+---+---+ | Given | 12/24/19 | 100 mg | | | | | 20 9:12 | | | | | | AM PDT | | | | +-------+ +--------+---+---+ | Given | 12/23/19 | 100 mg | | | | | 20 9:17 | | | | | | AM PDT | | | | +-------+ +--------+---+---+ +---+---+ | | | +---+---+ documented in this encounter
--- OUTSIDE RECORDS SUMMARY | ~2020-05-24 | XMS | Encounter Summary ---
Demographics + + + | Address | [address] [place] [address] | | | [place] [address] | + + + | Home Phone | | + + + | Preferred Language | Unknown | + + + | Marital Status | Single | + + + | Evangelical Affiliation | [phone] | + + + | Race | or | + + + | Ethnic Group | Not or | + + + Author + + + | Author | [facility] | | | and [place] | + + + | Organization | [facility] | | [...] Team Providers + +------+ + | Care Paper Roll Machine Operator Name | Role | Phone [...] Provider Unknown | | | | | [place], [place] | [phone] | | | | | [address] | | | | | | [phone] | | | +--------+ + + + [...]
--- OUTSIDE RECORDS SUMMARY | ~2020-05-24 | XMS | Encounter Summary ---
Demographics + + + | Address | [address] [place] [address] | | | [place] [address] | + + + | Home Phone | | + + + | Preferred Language | Unknown | + + + | Marital Status | Single | + + + | Alevism Affiliation | [id number] | + + + [...] Providers + +------+ + | Care Senior Sas Programmer Name | Role | Phone | + +------+ + | Anat Pickett | PCP | | + +------+ + Reason for Visit + +--------+ + | Reason | Onset | Comments | | | Date | | + +--------+ + | Referral | 08/01/ | | | | 2019 | | + +--------+ + Encounter Details +--------+ + + + + | Date | Type | Department | Care Team | Description | +--------+ + + + + | 08/01/ | Telephone | [facility] | Anastasia Argueta, | Referral | | 2019 | | NEUROLOGY [address] | MD Alexander JAMES | | | | | [address] | [address] [place], [place] | | | | | [place], [place] | [address] | | | | | [address] | [phone] | | | | | [phone] | | | +--------+ + + + [...] this encounter Miscellaneous Notes Telephone Encounter - Patsy Engel I - 08/01/2019 9:25 AM [place], is calling regard ing Referral and would like a call back. Additional Call Details: Urgent referral. Please return call to [facility]- patient does not have a working number- [facility] will be scheduling appointment and arranging transportation . Call back at: [phone]. If no answer leave detailed voicemail. If this is a symptom based call, was patient offered triage? Not Applicable If this is a symptom based call and you were unable to immediately transfer the call to a theodora flores grizzly worker was caller made aware that if at any time she feels it is an emergency they sh ould call 911 or go to the nearest emergency room? not applicable documented in this encounter Plan of Treatment Not on filedocumented as of this encounter Visit Diagnoses Not on filedocumented in this encounter"
--- OUTSIDE RECORDS SUMMARY | ~2020-05-24 | XMS | Encounter Summary ---
Demographics + + + | Address | [address] [place] [address] | | | [place] [address] | + + + | Home Phone | | + + + | Preferred Language | Unknown | + + + | Marital Status | Single | + + + | Judaism Affiliation | 1041 | + + + [...] Team Providers + +------+ + | Care Healthcare Customer Service Name | Role | Phone | + [...] + + | 12/31/ | Telephone | [facility] | Keenan Holland, | Appointment | | 2019 | | NEUROLOGY [address] | Healthcare Administrator | | | | | [address] | | | | | | [place], [place] | | | | | | [address] | | | | | | [phone] | | | +--------+ + + + [...] Miscellaneous Notes Telephone Encounter - Keenan Holland, Healthcare Administrator - 01/01/2020 11:59 AM Matthew hightower to confirm virual or over the phonie visit with Dr. Argueta. Also asked if we could move her appt to Wed. The 6th at 11am or 1130. documented in this encounter Plan of Treatment Not on filedocumented as of this encounter Visit Diagnoses Not on filedocumented in this encounter"
--- OUTSIDE RECORDS SUMMARY | ~2020-05-24 | XMS | Encounter Summary ---
Demographics + + + | Address | [address] [place] [address] | | | [place] [address] | + + + | Home Phone | | + + + | Preferred Language | Unknown | + + + | Marital Status | Single | + + + | Gnosticist Affiliation | 1041 | + + + | Race | or | + + + | Ethnic Group | Not or | + + + Author + + + | Author | [facility] | | | and [place] | + + + | Organization | [facility] | | | [...] Team Providers + +------+ + | Care Beef Cattle Grazier Name | Role | Phone | + [...] + + | 10/03/ | Telephone | [facility] | Keenan Holland, | Other (Pts ymptoms | | 2020 | | NEUROLOGY [address] | Car Dumper | getting worse) | | | | [address] | | | | | | [place], [place] | | | | | | [address] | | | | | | [phone] | | | +--------+ + + + [...] So she will talk to PCP abo la assistive device. No side effects to indomethacin, she will continue to take it. She velazquez s more numbness of left cheek/leg compared to last visit with me, so will also see PCP for o bjective tests and any need for imaging. Not acute numbness but slow worsening. SO not con cerning for stroke at this time. Thanks nohemy elephone Encounter - Keenan Holland, Car Dumper - 10/03/2019 12:22 PM PSTPt called back [...]
--- OUTSIDE RECORDS SUMMARY | ~2020-05-24 | XMS | Encounter Summary ---
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 Additional Call Details: Requesting call back with the status of scheduling patient from [facility] If this is a symptom based call, was patient offered triage? Not Applicable If this is a symptom based call and you were unable to immediately transfer the call to a p rovimike linen worker was caller made aware that if at any time she feels it is an emergency they sh ould call 911 or go to the nearest emergency room? not applicable documented in this encounter Plan of Treatment Not on filedocumented as of this encounter Visit Diagnoses Not on filedocumented in this encounter"
--- OUTSIDE RECORDS SUMMARY | ~2020-05-24 | XMS | Encounter Summary ---
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 | Cary Chapa DO | Status epilepticus | | 2019 - | Encounter | [facility] | [address] | ([facility]); Generalized | | | | [address] | [place] [address] | tonic-clonic seizure | | 07/03/ | | [place], [place] | [phone] | ([facility]); H/O ETOH | | 2018 | | [address] | | abuse; Polysubstance | | | | [phone] | Deepak Stanton MD | abuse ([facility]); | | | | | [address] | Methamphetamine | | | | | [place] [address] | intoxication ([facility]); | | | | | [phone] | 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[facility]); | | | | | | Post-ictal state | | | | | Beto Kothari MD [address] | ([facility]); Altered | | | | | [address] | mental status, | | | | | [place] [address] | unspecified altered | | | | | [phone] | mental status type; | | | | | | Seng coma scale | | | | | Freddy Gastelum MD | total score 3-8, at | | | | | [address] | hospital admission | | | | | [place] | ([facility]); Hypotension, | | | | | [address] | unspecified | | | | | [...] note might be different from sofi borden. [facility] Service: Hospitalist Discharge Summary Date [...] coursing through the mediastinum below the acquired rcvis-sd-nzgz into the upper abdomen. Overlying EKG leads [...] and drug abusewho presents withstatus epilepticus. The [facility] were rafi led and patient was [...] neosynephrine. Started on Levophed and CVC placed. Jenniferai ns on MV" HOSPITAL COURSE: Tobacco abuse [...] Procedure Component Value Units Date/Time Culture, Blood [[id number]] Collected: 06/27/19 170 Order Status: Completed Lab Status: Preliminary result Updated: 06/29/19726 Specimen: Peripheral Blood Special Requests R.AC Special Requests Testing performed at [facility] [place];[address] [place] [address] RESULT NO GROWTH 2 DAYS RESULT Testing performed at [facility], [address] [place] [address] Comment: Testing performed at [facility], [address] [place] [address] Culture, Blood [[id number]] Collected: 06/27/19 165 Order Status: Completed Lab Status: Preliminary result Updated: 06/29/19726 Specimen: Peripheral Blood Special Requests L.AC Special Requests Testing performed at [facility] [place];[address] [place] [address] RESULT NO GROWTH 2 DAYS RESULT Testing performed at [facility], [address] [place] [address] Comment: Testing performed at [facility], [address] [place] [address] Disposition: care home Condition: Stable Code Status: Full Code Discharge Procedure Orders Referral to Home Health Referral Priority: Routine Referral Type: Evaluate & Treat Referral Reason: Specialty Services Required Requested Specialty: Home Health Services Number of Visits Requested: 1 Follow up: [place] [address] [place] [address] Follow up on 07/04 at 1 PM. [facility] [address], [place] [address] Main Schedule an appointment as soon as possible for a visit intake [facility]ips. [facility] [place] [facility] [address], [place] [address] Main Go on 07/20/2019 intake; Please arrive at 8:30 a.m. to complete paperwork. Appointment will begin at 9:00 a. m. [place] [id number] [place] [id number] Schedule an appointment as soon as possible for a visit in 1 week [facility] [address] [phone] Discharge Medications New Medications Details midodrine 10 [...] in t his encounter Discharge Instructions Instructions Brandon Edwards RN - 06/30/2019 Recovering from Addiction: Continuing [...] and ask for a referral to an hair specialist for a n evaluation. Look in the [...] one of these national groups: ? National [employer] Alcoholism and Drug Dependence 563-760-7472 ? National Drug and Alcohol Treatment Referral Service 727-050-LQKT ([phone]) Date Last Reviewed: 10/07/201619998937-0378 [employer]. [address] [place] [address], [place] [address]. All righ ts reserved. This information is [...] more often than directed. Talk to your hydraulic lift operator regarding the use of this medicine in children. While this medici ne may be prescribed for selected conditions, precautions do apply. What side effects may I notice from receiving this medicine? Side effects that you should report to your doctor or health childbirth and infant care teacher as soon as p ossible: allergic reactions like skin rash, itching or hives, swelling of the face, lips, or tong ue chest tightness fast, irregular heartbeat irritable, restless nausea, vomiting sweating unusually bleeding or bruising Side effects that usually do not require medical attention (report to your doctor or health childbirth and infant care teacher if they continue or are bothersome): sneezing [...] pharmacist, or health care provider. Copyright 2019 [employer] Phenytoin Does this test have other names? [...] Before taking a new prescription or an iksx-ffe-zro nter medicine, it's best to check about [...] and any illicit drugs you may use. [id number] [employer]. [address] [place] [address]. All righ ts reserved. This information is not intended as a substitute for professional medical care. Always follow your healthcare professional's instructions. Midodrine tablets Brand Names: Orvaten, ProAmatine What is this medicine? MIDODRINE (AL sloan dreen) is used to treat low [...] on your doctor's advice. Talk to your hydraulic lift operator regarding the use of this medicine in children. Special care may be needed. What side effects may I notice from receiving this medicine? Side effects that you should report to your doctor or health childbirth and infant care teacher as soon as p ossible: awareness of heart beating blurred vision headache irregular heartbeat, palpitations, or chest pain pounding in the ears skin rash, hives Side effects that usually do not require medical attention (report to your doctor or health childbirth and infant care teacher if they continue or are bothersome): change [...] this medicine? Visit your doctor or health childbirth and infant care teacher for regular checks on your progress. You [...] medicine without asking your doctor or health childbirth and infant care teacher for advice. Some ingredients may increase yo ur blood pressure. NOTE:This sheet is a summary. It may not cover all possible information. If you have questi ons about this medicine, talk to your doctor, pharmacist, or health care provider. Copyright 2019 [email or web address] documented in this encounter Medications at Time of Discharge + + + +---------+ + + | Medication | Sig | Dispensed | Refills | Start | End Date | | | | | | Date | | + + + +---------+ + + | midodrine | Take 1 tablet by | 30 | 0 | 10/25/20 | | | (PROAMATINE) 10 MG | [...] morning. | capsule | | 19 | 0 | | capsule | | | | | | + + + +---------+ + + documented as of this encounter Progress Notes Beto Kothari MD - 07/02/2019 7:56 AM PDTFormatting of this note might be different from sofi borden. [facility] Service:hospitalist Progress Note Hospital Day: LOS: 10 days SUBJECTIVE Patient Summary: refer to H&P and consult note for details Per ICU 53 y.o.femalewith significant past medical history of PTSD, depression, alcohol abuse, at least one seizure (is listed as the reaction to aspirin in her allergies), hepatitis C vi ral infection and drug abusewho presents withstatus epilepticus. The [facility] were rafi led and patient was [...] coursing through the mediastinum below the acquired fullj-eg-uead into the upper abdomen. Overlying EKG leads [...] recently she came to the hospital at [facility]. CT scan was done over [...] Beto Bermeo MD - 9:27 AM PDT [facility] Service:hospitalist Progress Note Hospital Day: LOS: 9 days SUBJECTIVE Patient Summary: refer to H&P and consult note for details Per ICU 53 y.o.femalewith significant past medical history of PTSD, depression, alcohol abuse, at least one seizure (is listed as the reaction to aspirin in her allergies), hepatitis C vi ral infection and drug abusewho presents withstatus epilepticus. [facility] were rafi led and patient was [...] 07/01/2019 1153 Last data filed at 07/01/2019 06 Gross per 24 hour Intake 1890.9 ml [...] coursing through the mediastinum below the acquired pknys-vs-fdys into the upper abdomen. Overlying EKG leads [...] recently she came to the hospital at [facility]. CT scan was done over there that was patricia randolph. She will be on 300 mg of [...] will need close follow up with PCP also tabatha moralez consult with tele psych chronic hepatitis [...] Status: Full Code Beto Kothari MD 07/01/2019 cManoj Mejias ae, RN - 07/01/2019 6:59 AM PDTVSS. Complained of headache and was given PRN Tylenol with v erbalized relief. No other complaints. End of shift chart check complete.Electronically sign ed by Romel Ruzi RN at 07/01/2019 7:00 AM Baudilio Landon RN - 06/30/2019 5:52 P M PDTA/Ox4, [...] healing. Well supported by ruben sweeney in [place]. Cloth Layer provided compassionate, non-judgmental presence, affirmed and e ncouraged expression of emotion, explored the link between her shame and her relationship wi th God, facilitated discussion regarding suffering, Divine trung, and self-compassion, refra med her pain into a source of compassion for the world, provided a Bible per request, and of fered prayer which was accepted. Patient expressed appreciation for swatch paster visit and state d that a light of hope was sparked in her soul. Carla Fletcher RN - 06/30/2019 4:07 AM PDTVSS throughout shif t. MAP >65. CIWA neg. Pt ambulating to bathroom and c/o no pain. Hourly rounding unevent ful. Chart check complete. Carla Shaver RN Beto Bermeo MD - 2018 8:32 AM PDT [facility] Service:hospitalist Progress Note Hospital Day: LOS: 7 days SUBJECTIVE Patient Summary: refer to H&P and consult note for details Per ICU 53 y.o.femalewith significant past medical history of PTSD, depression, alcohol abuse, at least one seizure (is listed as the reaction to aspirin in her allergies), hepatitis C vi ral infection and drug abusewho presents withstatus epilepticus. The [facility] were rafi led and patient was [...] coursing through the mediastinum below the acquired padob-vq-omub into the upper abdomen. Overlying EKG leads [...] recently she came to the hospital at [facility]. CT scan was done over there that [...] Status: Full Code Beto Kothari MD 06/29/2019 rr, Esequiel Higginbotham N - 06/28/2019 9:46 PM [id number]: Notified Dr. Campo of potassium of 3.5, per the protocol if pt needs another replacement, notify provider. Dr. Campo ok with giving the recommended 40 mEq of oral potassium. VSS throughout shift. Pt's MAP remained >65. Hourly rounding uneventful. Chart check complete. Carla Shaver RN bleFreddy pabon MD - 1 2:54 PM PDT [facility] Adult Hospitalist Progress Note Hospital Day: 6 Patient Summary: Briefly, 53-year-old female with extensive past medical history most significant for PTSD, depression, active alcohol abuse, active drug abuse, hepatitis C and other chronic comorbid ities who presented to [facility] ER unresponsive with generalized tonic-clonic seizures admitte [...] DVT/GI px Freddy Gastelum MD 14:54 06/28/2019 ixonLissy RN - 06/28/2019 12:11 AM PDTPt stable [...] assist. Chart check complete. Lissy Madrigal RN ailey, Karen Hidalgo RN - 06/27/2019 5:59 PM PDTPatient stable [...] Bermeo MD - 06/27/2019 9:31 AM PDT [facility] Service:hospitalist Progress Note Hospital Day: LOS: 5 days SUBJECTIVE Patient Summary: refer to H&P and consult note for details Per ICU 53 y.o.femalewith significant past medical history of PTSD, depression, alcohol abuse, at least one seizure (is listed as the reaction to aspirin in her allergies), hepatitis C vi ral infection and drug abusewho presents withstatus epilepticus. The [facility] were rafi led and patient was [...] in the last 72 hours. Recent Labs 06/26/19 0423 PROCALCITONI 0.15 Recent Labs 06/27/1942806/26/19 0403 WBC 5.76 7.36 HGB 13.8 12.3 HCT 40.4 35.5 PLT 207 161 Recent Labs 06/27/19 04206/26/19 0403 NA 138 139 K 3.3* 3.5 CL [...] coursing through the mediastinum below the acquired oxppo-wm-qbeh into the upper abdomen. Overlying EKG leads [...] left maxillary sinus opacification. Signed by: Daija Jhon Steven Sign Date/Time: 06/25/2019 3:33 PM XR [...] recently she came to the hospital at [facility]. CT scan was done over there that was ne gative. Started on fosphenytoin and Keppra. Keppra has been discontinued. She will be on 300 mg of phenytoin extended release on discharge. Neurology has been following. Check leve l in AM Hypotension could be volume related she does not look septic but will check blood cx X2 Sh e is on dopamine gtt since 06/26. She [...] 9:24 PM Deepak Gabriel MD - 06/26/20 19 10:09 AM PDT Service: Hospitalist Progress Note Pt: Steffi Bishop AGE/SEX: 53 y.o. female ROOM: 9115/9115-01 : 1965 PCP: RAFFI Ji ADMIT DATE: 06/22/2019 TODAY'S DATE: 06/26/2019 Hospital Day/Hospital Course: LOS: 4 days Per ICU 53 y.o.femalewith significant past medical history of PTSD, depression, alcohol abuse, at least one seizure (is listed as the reaction to aspirin in her allergies), hepatitis C vi ral infection and drug abusewho presents withstatus epilepticus. The [facility] were rafi led and patient was [...] % 06/25/19 2320 (!) 84/58 92 21 06/25/19 2310 (!) 80/54 94 24 06/25/19 2305 (!) 80/56 93 23 06/25/19 2300 (!) 86/55 89 22 06/25/19 2200 (!) 64/41 88 25 06/25/192154 (!) 77/50 89 26 06/25/192149 (!) 76/51 85 24 06/25/192144 (!) 63/42 91 25 06/25/192139 (!) 82/63 97 (!) 33 06/25/192134 (!) 81/56 89 25 06/25/192129 (!) 78/53 86 26 06/25/192124 (!) 81/58 93 25 06/25/192119 (!) 79/55 81 21 06/25/192114 (!) 80/53 80 23 06/25/192109 (!) 69/48 90 25 06/25/192104 (!) 78/53 90 23 06/25/19 2100 (!) 75/51 86 23 06/25/192044 (!) 79/50 88 25 06/25/192039 (!) 84/59 86 21 06/25/192029 (!) 89/57 82 21 06/25/192019 (!) 84/59 85 22 06/25/19 2010 (!) 80/55 79 22 06/25/191999 (!) 82/57 89 22 06/25/19 1950 (!) 83/55 88 23 06/25/19 1945 (!) 87/53 36.8 C (98.2 F) Oral 87 23 100 % 06/25/19 1930 (!) 88/57 95 24 06/25/19 1800 (!) 85/59 95 20 06/25/19 1734 (!) 89/62 95 24 06/25/19 1703 (!) 80/55 06/25/19 1701 (!) 78/54 36.7 C (98.1 F) Oral [...] Not suicida l LABS: Recent Labs Lab 06/26/19 0403 06/25/19 0310 06/24/19 0504 WBC 7.36 9.12 9.90 HGB 12.3 13.1 13.5 HCT 35.5 38.8 39.5 PLT 161 194 221 MONOPCT 4.52 8.42 7.57 Recent Labs Lab 06/26/19 0403 06/25/19 1126 06/25/19 0310 06/24/19 0504 06/23/19 1319 NA 139 -- 141 [...] Date PHOS 2.7 06/26/2019 Recent Labs Lab 06/26/19 0403 06/25/19 0310 06/24/192018 MG 1.7 2.1 1.7 Recent Labs Lab 06/23/19 0422 PHART 7.313* PO2ART 120* XUR2GQM 46* [id number] 98 Diagnostic Imaging: Impressions only: Recent Results [...] ently she came to the hospital at [facility]. CT scan was done over there that [...] this chart may have been created with [employer] voice recognition software. Occasi onal wrong-word or [...] Mehreen Hayward RN - 06/25/2019 6:54 PM [id number]: pt arrived on unit. MAP 61; 500ml NS bolus given; MAP currently 64. Patient passed swallow eval. Patient has be en sleepy, no seizures. End of shift chart check done. Anastasia Livingston MD - 06/25/2019 10:26 AM PDTFormatting of this note might be dif ferent from the original. [facility] Service: Neurology PROGRESS NOTE Subjective: Patient seen [...] us guide if anti-epileptics are necessary for intermediate - I discussed at length with patient today about importance of discontinuing substance abus e and alcohol given recent very severe seizures - Please have [patient follow up with neurology clinic in 6-8 weeks. - General care per primary team. Thank you for allowing us to participate in your patient care. Please call us with Keniu. I will be signing off on patient as today is last day of my call. Please reach out to neurologist bow maker production starting tomorrow for any additional concerns. If brain imaging is obta ined, please reach out to me to discuss results if needed. ana Emerson ARN P - 06/25/2019 7:32 AM PDT [facility] Service: Stakes Player Progress Note Steffi Bishop 53 y.o. Hospital [...] abuse who presents with status epilepticus. The [facility] were called and patient was found [...] C (100 F) Pulse: [74-105] 92 Resp: [10-37] 26 BP: (69-131)/(50-92) 101/75 Intake/Output Summary (Last [...] MDMA ). Resolved. ? Head CT at [facility] was negative. ? Neurology (Dr. Argueta) is following. CT imaging obtained per Neurology recommendations. ? AED management per Neurology. Discontinued keppra per Neurology recommendations. Will nee d phenytoin 300 mg ER daily on discharge. Alcohol abuse: unknown when she last drank, but family reports heavy daily drinking. ? CIWA protocol with prn Ativan. ? Thiamine, folic acid supplementation daily. Polysubstance abuse: direct care counselor on cessation. CV: Hypotension, requiring Levophed [...] of infection. Blood cultures were drawn at [facility] facility prior to transfer: NGTD HEME: No acute [...] Percent change: 17.6% Pt IS fluid responsive. Stakes Player notified. Anastasia Livingston MD - 06/24/2019 9:30 AM PDTFormatting of this no te might be different from the original. [facility] Service: Neurology PROGRESS NOTE Subjective: Subjective: Patient [...] your patient care. Please call us with noodls ns. Bryan Recinos MD - 06/24/2019 8:30 AM [facility] Service: Continuous EEG Monitoring Progress Note Brief [...] any questions or concerns. Bryan Celis MD [facility] Clinical Neurophysiologist llis, Cary irene, FLIGHT SUPERINTENDENT - 06/24/2019 7:08 AM PDTFormatting of this note might be different from the [facility] Service: Stakes Player Progress Note Steffi Bishop 53 y.o. Hospital [...] abuse who presents with status epilepticus. The [facility] EMS were called and patient was found [...] and MDMA ). ? Head CT at [facility] was negative. ? Cont Keppra and fosphenytoin, [...] monitor closely. Blood cultures were drawn at [facility] prior to transfer; I followed up wit [...] of all other procedures. HYUN Larsen 06/24/2019 Shaquille Recinos MD - 06/23/2019 9:53 AM [facility] Service: Continuous EEG Monitoring Progress Note Patient [...] any questions or concerns. Bryan Celis MD [facility] Clinical Neurophysiologist documented in th is encounter H&P Notes Cary Chapa, DO - 06/23/2019 12:16 AM PDTFormatting of this note might be different from t david original. [facility] Service: Stakes Player Admission History & Physical Steffi Bishop 53 y.o. Date of Admission: 06/22/2019 Requesting Physician: Dr. Sanford, Emergency Department at [facility] Indication for ICU Admission: status epilepticus History Obtained From: chart review, reason patient could not give history: intubated, bernadette joel CHIEF COMPLAINT: multiple generalized tonic clonic seizures HISTORY OF PRESENT ILLNESS The patient is a 53 y.o. female with significant past medical history of PTSD, depression, alcohol abuse, at least one seizure (is listed as the reaction to aspirin in her allergies), hepatitis C viral infection and drug abuse who presents with status epilepticus. The [facility] were called and patient was found unresponsive and then had a generalized tonic-clonic seizure. Per report there were multiple people on site but no good history was obtainable. S he had 3 more seizures en route to the ED, each lasting approximately 30 seconds. She receiv ed a total of 8 mg of Valium. In the ED she had two more seizures and was given 4 mg Ativan and then loaded with 2 gm Keppra. She was intubated in the ED for airway protection. She had blood noted in her mouth from biting her tongue. EMS did not note any more seizures and not ed pt's eyes to be open prior to transfer but pt was not following commands. Work up reveale d head CT negative for any acute intracranial abnormality. Normal CXR. Normal electrolytes. Mildly elevated WBC 11.9. LA was elevated at 10.4, consistent with generalized seizure. UDS was positive for methamphetamine and MDMA. Blood alcohol level was negative. She was given a total of 2 liters NS. She was given 200 mcg fentanyl and 2 mg Ativan en route just for bernadette tion by [employer]. Active comorbid conditions include: - hepatitis; C - encephalopathy; metabolic - seizures; generalized - psychiatric problem - depression - Drugs/Alcohol/Tobacco - alcohol problem - substance abuse; methamphetamines and other; MDMA - tobacco use REVIEW OF SYSTEMS Review of Systems Unable to perform ROS: Intubated Neurological: Positive for seizures. Psychiatric/Behavioral: Positive for depression and substance abuse. PAST MEDICAL HISTORY Past Medical History: Diagnosis Date Alcohol abuse Depression Drug abuse (HCC) methamphetamine and MDMA PTSD (post-traumatic stress disorder) PAST SURGICAL HISTORY Past Surgical History: Procedure Laterality Date ANKLE SURGERY Right ankle pins and plate CHOLECYSTECTOMY HYSTERECTOMY ALLERGIES Allergies Allergen Reactions Aspirin Other (See Comments) seizure MEDICATIONS PRIOR TO ADMISSION Prior to Admission medications Not on File FAMILY HISTORY OF SIGNIFICANCE No family history on file. SOCIAL HISTORY Social History Socioeconomic History Marital status: Spouse name: Not on file Number of children: Not on file Years of education: Not on file Highest education level: Not on file Social Needs Financial resource strain: Not on file Food insecurity - worry: Not on file Food insecurity - inability: Not on file Transportation needs - medical: Not on file Transportation needs - non-medical: Not on file Occupational History Not on file Tobacco Use Smoking status: Current Every Day Smoker Packs/day: 0.25 Substance and Sexual Activity Alcohol use: Yes Drug use: Yes Types: Methamphetamines, Other-see comments Comment: MDMA Sexual activity: Not on file Other Topics Concern Not on file Social History Narrative Not on file PHYSICAL EXAM VITAL SIGNS Temp: [37.1 C (98.7 F)-37.5 C (99.5 F)] 37.5 C (99.5 F) Pulse: [105-108] 107 Resp: [16-17] 16 BP: (110-113)/(76-83) 110/81 EXAM GEN: intubated, sedated (received ativan and fentanyl en route to ICU), thin, well nourishe d, appears older than stated age, NAD NEURO: pupils equal, round, cannot see them reacting but 3mm, no facial asymmetry, moves UE s, reaches toward face with suctioning ETT HEENT: sclerae clear, nonicteric, oral mm dry, pink with old blood on teeth and lips, no fr esh blood; OG tube with some dark maroon blood that cleared with lavage NECK: supple, trachea midline CV: RRR, S1/S2, no murmur, rub or gallop, peripheral pulses palpable, cap refill brisk LUNGS: clear b/l, no wheezing, rales or rhonchi, symmetric chest expansion ABD: soft, nondistended, no reaction to palpation, no mass EXTR: no edema, clubbing or cyanosis SKIN: warm, dry, no rash or mottling; no e/o skin breakdown over the occiput, scapulae, elb ows, sacrum or heels LINES/TUBES: PIVs, Kaplan (placed in ED) Diagnostic Studies: Available labs and images have [...] & PLAN NEURO: Status epilepticus: possible ETOH withdrawal. Head CT neg. May be related to drug use wi UDS positive for meth and MDMA. Cont Keppra and prn Ativan. STAT EEG. If no e/o seizures will hold sedating medications to allow her to wake. Cont supportive care on MV for airway protection until alert. If pt not waking today or has recurrent fever would consider LP. Fever in ED to 101.1, l ikely from repeat seizures. Afebrile here. Unlikely that she would be using drugs if she had encephalitis/meningitis. Consult neurology in am. Alcohol abuse: unknown when she last drank. CIWA protocol with prn Ativan. Thiamine, folate. If still drinking need to assess readiness to quit. Polysubstance abuse: Cont supportive care. CV: No issues. Is hemodynamically stable. PULM: Intubated for airway protection: no documented hypoxia. SBT once she is awake and able to interact. GI/NUTRITION: NPO Old blood in mouth and small amount dark bloody fluid from OG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 CT was negative for any acute intracranial abnormality p er report. She had normal chest x-ray and electrolytes. Mildly elevated WBC 11.9. Lactic acid was elevated at 10.4 likely due to seizure. Her negative. She was given 200 mcg fenta nyl and 2 mg Ativan in route for sedation by [facility]. Patient per nursing report this morning did not have any further clinical seizure activity after being transferred to the ICU. However a stat routine EEG obtained overnight, read by me showed electrographic generalized status epilepticus with four seizures captured on the r ecording back to back. ICU flow machine operator was reported about these findings immediately and [place] was loaded with 1000 mg IV phenytoin and started on IV propofol 20 mcg/kg maintenance. Patient was placed on continuous EEG overnight. Outside reports reviewed: ER records. Review of Systems Unable to do review of systems due to patient's mental status PMH: Patient Active Problem List Diagnosis Date Noted POA Methamphetamine intoxication 06/23/2019 Yes MDMA abuse 06/23/2019 Yes Smoker 06/22/2019 Yes H/O ETOH abuse 06/22/2019 Yes Major depressive disorder 06/22/2019 Yes Hep C w/o coma, chronic 06/22/2019 Yes History of posttraumatic stress disorder (PTSD) 06/22/2019 Yes Status epilepticus 06/22/2019 Yes Generalized tonic-clonic seizure 06/22/2019 Yes Post-ictal state 06/22/2019 Yes Past Medical History: Diagnosis Date Alcohol abuse Depression Drug abuse (HCC) methamphetamine and MDMA PTSD (post-traumatic stress disorder) Past Surgical History: Procedure Laterality Date ANKLE SURGERY Right ankle pins and plate CHOLECYSTECTOMY HYSTERECTOMY Allergy: Allergies Allergen Reactions Aspirin Other (See Comments) seizure Medications: Unknown home medications Scheduled Meds: chlorhexidine 15 mL Mouth/Throat BID enoxaparin 40 mg Subcutaneous Daily famotidine 20 mg Intravenous BID fentaNYL (PF) folic acid with thiamine IVPB 1 mg Intravenous Daily fosphenytoin 100 mg PE Intravenous Q8H insulin lispro 0-6 Units Subcutaneous 4x Daily WC and HS levETIRAcetam 500 mg Intravenous 2 times per day FHx: Not able to obtain secondary to patient's mental status SHx: Not able to obtain secondary to patient's mental status, previous known history of alcohol abuse and drug abuse Objective: Vitals: BP (!) 83/59 | Pulse 93 | Temp (!) 38.1 C (100.6 F) | Resp 18 | Ht 1.626 m (5' 4") | Wt 54.2 kg (119 lb 7.8 oz) | SpO2 100% | BMI 20.51 kg/m General: Fragile appearing woman lying in the bed, unresponsive and intubated Neck: Supple Lungs: Clear bilaterally to auscultation anteriorly Heart: Regular rate and rhythm, S1, S2 Pulses: Normal in right radial pulse Extremities: No observed rash on body or needle shine Detailed neurologic exam: Mental status: Comatose, sedated, intubated, unresponsive to name/voice or central pain sti mulus. Cranial nerves: Constricted pupils, symmetric bilaterally 1 mm, reactive to light. Corneal s positive bilaterally and brisk. Negative oculocephalic reflex but patient becomes agitate d and moves her head and extremities around on attempt to do oculocephalic reflex. Positive gag. Face appears symmetric Motor exam: No spontaneous movements or abnormal movements observed, no response to deep ce ntral pain stimulus bilaterally, no response to peripheral pain stimulus on upper extremitie s. With painful stimulus to bilateral lower extremities patient has flexor response in bila teral lower extremities. On attempt to do oculocephalic reflex patient becomes agitated and tries to move around her head and her bilateral upper extremities non-purposefully. Sensory exam: Same as above with pain stimulus Reflexes: Diminished trace reflexes in bilateral upper and lower extremities absent at ankl es, upgoing toes bilaterally Coordination: Could not be examined secondary to patient's mental status Gait: Could not be examined secondary to patient's mental status Labs Lab Results Component Value Date WBC 10.58 06/23/2019 HGB 13.7 06/23/2019 HCT 40.3 06/23/2019 MCV 92.1 06/23/2019 PLT 188 06/23/2019 Lab Results Component Value Date BUN 6 (L) 06/23/2019 NA 141 06/23/2019 K 2.8 (L) 06/23/2019 CL 107 06/23/2019 CO2 25 06/23/2019 Recent Results (from the past 24 hour(s)) POC Glucose Collection Time: 06/22/19 23:44 Result Value Ref Range Glucose, POC 144 (H) 65 - 99 mg/dL Lactic Acid Collection Time: 06/23/19 1:16 Result Value Ref Range Lactate, Serum 0.6 0.4 - 2.0 mmol/L Basic Metabolic Panel Collection Time: 06/23/19 4:08 Result Value Ref Range Na 141 135 - 145 mmol/L K 2.8 (L) 3.5 - 4.9 mmol/L Cl 107 99 - 109 mmol/L CO2 25 23 - 32 mmol/L Anion Gap 12 5 - 20 mmol/L Glucose 140 (H) 65 - 99 mg/dL BUN 6 (L) 8 - 25 mg/dL Creatinine 0.64 0.50 - 1.00 mg/dL BUN/Creatinine Ratio 9 Calcium 7.6 (L) 8.5 - 10.5 mg/dL Estimated GFR >60 >60 mL/min/1.73m2 CBC with Differential Collection Time: 06/23/19 4:08 Result Value Ref Range WBC 10.58 3.80 - 11.00 K/uL RBC 4.38 3.70 - 5.10 M/uL Hemoglobin 13.7 11.3 - 15.5 g/dL Hematocrit 40.3 34.0 - 46.0 % MCV 92.1 80.0 - 100.0 fl MCH 31.3 27.0 - 34.0 pg MCHC 33.9 32.0 - 35.5 g/dL RDW-SD 46.4 37 - 53 fl Platelet Count 188 150 - 400 K/uL MPV 7.3 fl Diff Type AUTOMATED % Neutrophils 91.27 % % Lymphocytes 5.21 % Monocyte % 3.10 % Eosinophils % 0.00 % Basophils % 0.42 % Neutrophils, Absolute 9.66 (H) 1.90 - 7.40 K/uL Absolute Lymphocytes 0.55 (L) 1.00 - 3.90 K/uL Absolute Monocytes 0.33 0.00 - 0.80 K/uL Eosinophils, Absolute 0.00 0.00 - 0.50 K/uL Basophils, Absolute 0.04 0.00 - 0.10 K/uL RBC Morphology RBC AND PLT MORPHOLOGY APPEAR NORMAL Platelet Estimate ADEQUATE Comment SLIDE SCANNED, AGREES WITH AUTOMATED RESULTS. Magnesium Collection Time: 06/23/19 4:08 Result Value Ref Range Magnesium 1.6 (L) 1.7 - 2.4 mg/dL Phosphorus Collection Time: 06/23/19 4:08 Result Value Ref Range Phosphorus 4.4 2.3 - 4.8 mg/dL Blood gas, Arterial Collection Time: 06/23/19 4:22 Result Value Ref Range FiO2, POC 30 % pH, Arterial, POC 7.313 (L) 7.350 - 7.450 pCO2, Arterial 46 (H) 35 - 45 mmHg pO2, Arterial 120 (H) 80 - 105 mmHg HCO3, Arterial 23 22 - 26 mmol/L TCO2, Arterial, POC 25 23 - 27 mEq/L POC Base Deficit mmol/L 3 (H) 0.0 - 2.0 mmol/L SO2, Arterial, POC 98 95 - 98 % Comment, POC Modified Joao Test passed ] IMAGING Xr Chest Ap Portable Result Date: 06/23/2019 CHEST PORTABLE ONE VIEW CLINICAL INFORMATION: Endotracheal tube and orogastric tube placeme nt. COMPARISON: Earlier examination of this same date. 1. The tip of the endotracheal tube is 2.3 cm above the óscar. There is an NG tube which extends into the stomach. 2. There is patchy opacity in the left lung base suggesting atelec tasis. Right lung clear. 3. Cardiomediastinal contours are stable. 4. No pneumothorax. Sign ed by: Daija Curiel Paula Sign Date/Time: 06/23/2019 12:[address] head at outside hospital: No images available for review but reported normal. Stat EEG (06/23/19- 3:43 am), read by me EEG Findings: Patient was in status epilepticus. There were total four seizures noted during the recordi ng. First seizure was ongoing when the recording was started. This lasted about 04:49 tonio elysia. Second seizure started 2 minutes after first one and lasted 2:06 minutes. This one ap peared to start in left fronto-temporal area but difficult to ascertain definitively. Third seizure followed shortly after second within 10 seconds lasting approximately 12 minutes. Fourth seizure started within 2 minutes of third one and continued until ending of the rec ording. Interictally there were frequent (1-2 per second) generalized epileptiform dischar ges with superimposed delta frequency (1 hertz) waves and burst suppression intervals (1 sec ond). Patient was in status during photic stimulation and no hyperventilation was performed . Interpretation: This EEG is abnormal with status epilepticus. There were total four seizures on this recor ding occurring at frequent intervals with interictal very frequent generalized epileptiform discharges. Location of onset of seizures is unclear and appears generalized. Additional interictal slowing is likely from postictal state versus generalized cerebral dysfunction fr om any cause. Treating emergently with anti-epileptic drugs is recommended. These finding s were immediately notified to the bow maker production provider, Dr. Holland. CEEG: Formal report pending but quick bedside review of the continuous EEG during examinati on this morning shows no electrographic seizures but shows ongoing periodic frontal predomin ant sharp discharges less frequent compared to stat EEG overnight. These discharges now appe ar to be spaced out every 2 to 3 seconds as opposed to 1-2 discharges per every second on st at EEG last night. Assessment: This patient is a 53-year-old woman with history of PTSD, depression, alcohol abuse, hepati tis C, drug abuse admitted to the hospital with generalized tonic-clonic seizures and status epilepticus. Patient's Utox was positive for MDMA and methamphetamine with negative blood alcohol level. Stat EEG overnight showed electrographic status epilepticus with no further clinical seizures after Keppra IV load though she had initial run of several clinical tonic- clonic seizures. Patient was level loaded with 2 g Keppra IV as well as given several doses of Valium and Ativan prior to transfer. She is status post IV phenytoin 1 g load and propo fol 20 mcg/kg maintenance due to evidence of electrographic status epilepticus overnight on EEG. Currently on continuous EEG monitoring with ongoing but slightly improved frequency of periodic frontal predominant sharp wave discharges and no further clinical seizures. Forma l cEEG report pending. Patient's on exam (With propofol running) this morning was comatose, unresponsive to central and peripheral pain stimulus but was able to move bilateral upper e xtremities antigravity during an attempt to do oculocephalic reflex exam. Differential diagnosis for etiology of status epilepticus includes substance abuse with met hamphetamine and MDMA, alcohol withdrawal, any other structural brain pathology which cannot be completely excluded at this time (given frontal predominant discharges on cEEG), less li delbert infection (no fever). Differential diagnosis for her altered mental status at this trina e includes postictal state from status epilepticus and or effects of substance abuse and sec ondary to treatment with sedatives and benzodiazepines vs alcohol withdrawal vs structural b rain pathology. Other possibilities include hypoxic injury secondary to seizures vs infecti on. Impression- 1- Generalized tonic-clonic seizures with status epilepticus 2- Electrographic status epilepticus 3- Substance abuse with methamphetamine and MDMA 4- Altered mental status,coma 5- History of alcohol abuse, possible alcohol withdrawal Plan: -Would recommend obtaining CT head images at outside hospital -Continue phenytoin 300 mg IV daily and obtain levels for total and free phenytoin tomorrow morning. -Continue propofol for now -Await formal continuous EEG read for any further subclinical seizure activity and monitori ng epileptiform discharges frequency. -Ativan as needed for seizures -Please reach out to neurology if evidence of more seizures on continuous EEG, or any delfin rn for clinical seizure. -Recommend obtaining MRI brain with and without contrast while patient intubated for more i nformation on any structural brain pathology given ongoing frontal predominant epileptiform discharges on cEEG -If patient's mental status is not improved with control of seizures and epileptiform disch arges in the next 1 to 2 days, could consider lumbar puncture for any source of central infe ction, monitor for infectious symptoms. -Recommend CIWA protocol with Ativan PRN Code status: Full code by default Thank you for allowing me to participate in the care of this patient. Please call if there are any questions. Neurology will continue to follow documented in this en counter Miscellaneous Notes Plan of Care - Babatunde Sotelo, PT, DPT - 07/03/2019 5:09 PM PDTFormatting of this not e might be different from the original. Physical Therapy Treatment, Discharge Note Recommended discharge disposition: home, home with assist Post discharge physical therapy recommendation: no further PT Equipment Recommendations: none Barriers to community-based discharge None Planned Interventions: balance training, gait training, transfer training POC (may reflect documentation from different provider) balance training, gait training, t ransfer training Recommended Frequency: 4 times/wk for 7 days PT reassessment due 07/02/19 Next visit information: 07/03, deconditioning Summary: Pt. seems irritable that she needs to have mobility assessed to determine safe di sposition to home. She was agreeable. She was able to mobilize approx. 800 ft. with normal gait cycle without use of AD. She scored 28/28 using Tinetti TAWANA which indicates low fall risk. She tolerated activity well and appears safe to return to home setting. Precautions Precaution Comment: fall risk, watch BP Cognitive Assessment Mood/Behavior: agitated Orientation: oriented x 4 Bed Mobility Additional Documentation: supine to/from sit Supine to Sit, Level of [place]: independent Transfers Additional Documentation: sit to/from stand Sit-Stand, Level of [place]: independent Gait Gait Comments: WNL Level of [place]: minimal assist (75% patient effort), moderate assist (50% patient ef fort), 1 person + 1 person to manage equipment Assistive Device: none Distance (feet): 800 Additional Documentation: pattern, deviations, safety, impairments Gait Deviations: liat decreased, step length decreased Safety Issues: balance decreased during turns, sequencing ability decreased, stands too far from assistive device Balance Sitting Balance: Static: fair balance Sitting Balance: Dynamic: fair balance Standing Balance: Static: good balance Standing Balance: Dynamic: good balance Goals Reflects last filed data and may be from multiple contributors. PT Goal Review Date Most Recent Value STG Review Date 07/02/19 at 06/28/2019 1540 LTG Review Date 07/02/19 at 06/25/2019 1300 All Transfers Goal Most Recent Value LTG [place] Level modified independent at 06/25/2019 1300 Gait Goal Most Recent Value LTG [place] Level modified independent at 06/25/2019 1300 LTG Assistive Device 2 wheeled walker (FWW) at 06/25/2019 1300 LTG Distance (feet) 150 at 06/25/2019 1300 lan of Humberto adore Enrique Neil, SHRIMP BOAT CAPTAIN - 07/03/2019 2:04 PM PDTCare Management Follow-Up Readmission Risk: Medium Current Discharge Plan Anticipated Discharge Disposition: Home Expected DC Date: 07/03/2019 Barriers to Discharge: Pt was denied SNF by her insurance - [employer] [place] [employer] - they re sponded that Pt is appropriate to go home. Steps Taken Toward Discharge: SHRIMP BOAT CAPTAIN notified Brandon DOUGLAS and Dr. Kothari. SHRIMP BOAT CAPTAIN attempted to notify Pt, was in shower. SHRIMP BOAT CAPTAIN p/c left msg with Pt jess ([place] [phone]) for call back. SHRIMP BOAT CAPTAIN p/c with Carla at [facility], states they are agreeable to following up with PT after discharge, covers the [facility] now. Next Steps: Home with Pt migdaliar ([place]) - Pt dghtr will transport. Follow up with Chemical Dependency and Counseling appointment. Follow up with PCP at [facility]. SHRIMP BOAT CAPTAIN met with Pt regarding final discharge, refused home health PT, states she wants to foll ow up with her PCP. SHRIMP BOAT CAPTAIN notified Carla with [facility] regarding Pt does not want Home health se rvices. Notifed Carla with decline letter. Discharge Transportation Transportation Needs: Pt dghtr ([place] [phone]) Electronically signed: KUNAL CLANCY 07/03/2019 14:04 lan of Care - Brandon Edwards RN - 07/03/2019 8:00 AM PDTProblem: Adult Inpatient Plan of Care Goal: Plan of Care Review Outcome: Ongoing, progressing Goal: Patient-Specific Goal Outcome: Ongoing, progressing Brandon Gallego RN lan o f Sally - Merlene Martines RN - 07/02/2019 6:46 PM PDT Problem: Adult Inpatient Plan of Care Goal: Plan of Care Review Outcome: Ongoing, progressing Patient ready and willing to be discharged. Patient is independent in room and to toilet, call appropriately. Had shower. Given tylenol x1 for headache. Pt does have multiple bowel movements/day but they are not watery. Electrolytes did not need replacing. CIWA scores remain 0. End of shift chart check complete. Electronically signed by Merlene Martines RN at 2018 6:52 PM PDTPlan of Care - Ivory Brennan RN - 07/02/2019 6:24 AM PDT Problem: Adult Inpatient Plan of Care Goal: Plan of Care Review 07/01/20192109 by Ivory Brennan RN Outcome: Ongoing, progressing 07/01/20192002 by Ivory Brennan RN Outcome: Ongoing, progressing Flowsheets (Taken 07/01/20192002) Plan of Care Reviewed With: patient Note: Plan of care reviewed with patient at bedside during report. No questions at this time. No acute changes during shift. End of shift audit completed. Ivory Brennan RN lan of Sally - Romel Ruiz RN - 07/01/2019 1:48 AM PDTPain, potty, position, possession addressed. Ambulate s to bathroom with SBA. Hourly rounding done. Call light within reach. Problem: Adult Inpatient Plan of Care Goal: Plan of Care Review Outcome: Ongoing, progressing Goal: Patient-Specific Goal Outcome: Ongoing, progressing Goal: Rounds/Family Conference Outcome: Ongoing, progressing lan of Care - Enrique Hobbs MSW - 06/30/2019 3:39 PM PDTCare Management Follow-Up Readmission Risk: Medium Current Discharge Plan Anticipated Discharge Disposition: Long-Term Facility Expected DC Date: 06/30/2019 Barriers to Discharge: Pt dghtr encouraging Pt to go to [facility]. Steps Taken Toward Discharge: Elliot at [facility] has medically accepted Pt, unf ortunately insurance authorization has to get done via [facility] office in [facility] this will happen on Wednesday. SHRIMP BOAT CAPTAIN notified Pt and Pt dghtr ([place] ). Pt was heartbroken when she heard the news about staying until Wednesday, Pt has hx o f PTSD and Major Depressive Disorder. SHRIMP BOAT CAPTAIN referred [facility] to follow up. SHRIMP BOAT CAPTAIN notified Dr. Marilee chopra as well. Next Steps: Pending insurance authorization for [facility]. With Pt and Pt dghtr ([place]), SHRIMP BOAT CAPTAIN provided option of going home with Home health PT and OT provided by [facility]. Pt dghtr and Pt wants to stay until Tuesday 07/03. Community Support Services Current Outpt/Agency/Support Groups: [facility] and [facility] for follow up counseling for chemical dependency and mental health direct care counselor ing. Discharge Transportation Transportation Needs: Pt dghtr ([place] [phone]) to transport when ready. Pending at: [facility] [address] [address] Facility: [phone] [facility] (Admissions): [phone] Electronically signed: KUNAL CLANCY 06/30/2019 15:40 lan of Care - Estelita mcfarlane, Sindhu, PT - 06/30/2019 2:20 PM PDT Physical Therapy Treatment Note Recommended discharge disposition: fpc facility(reports dtr has to work alot an d won't be able to assist muc) Post discharge physical therapy recommendation: ongoing low intensity therapy Equipment Recommendations: (defer to snf) Barriers to community-based discharge Cognitive Impairment, Level of assistance for mobility and Fall risk Planned Interventions: POC (may reflect documentation from different provider) balance training, gait training, t ransfer training Recommended Frequency: 4 times/wk for 7 days PT reassessment due 07/02/19 Next visit information: 06/30- deconditioning Summary: Pt progressing with therapy- she is excited to be leaving the hospital soon. She demonstrates good balance iwth FWW, however has poor safety awareness, will leave it behind when doing activities in room and is high fall risk. Pt needed to spit after a cough and imp ulsively went toward garbage can, but stumbled and required therapist assist to maintain bal ance. Per CM, dtr has increasing work responsibilities and is not able to provide adequate c are at home. Pt would benefit from SNF and ongoing balance training for safety prior to retu rn home. Precautions Precautions/Limitations: falls Cognitive Assessment Mood/Behavior: calm, cooperative Bed Mobility Supine to Sit, Level of [place]: independent Sit to Supine, Level of [place]: independent Transfers Sit-Stand, Level of [place]: stand by assist Stand-Sit, Level of [place]: supervised [id number], Assistive Device: none Safety Issues: balance decreased during turns Impairments: (poor safety awareness) Gait Level of [place]: stand by assist, contact guard assist Assistive Device: 2 wheeled walker (FWW), none Distance (feet): 320 Gait Deviations: (scissor gait w/o AD) Impairments: impaired balance(poor safety awareness) Balance Additional Documentation: tandem walk, tandem stand Tandem Stance R LE (sec): 4 sec Tandem Stance L LE (sec): 10 sec Tandem Gait: Julia Retro Walking: x10 Sidestepping: x10 Goals Reflects last filed data and may be from multiple contributors. PT Goal Review Date Most Recent Value STG Review Date 07/02/19 at 06/28/2019 1540 LTG Review Date 07/02/19 at 06/25/2019 1300 All Transfers Goal Most Recent Value LTG [place] Level modified independent at 06/25/2019 1300 Gait Goal Most Recent Value LTG [place] Level modified independent at 06/25/2019 1300 LTG Assistive Device 2 wheeled walker (FWW) at 06/25/2019 1300 LTG Distance (feet) 150 at 06/25/2019 1300 PT Time Calculation Individual Start Time: 1420 Individual Stop Time: 1444 Individual Total Time: 24 PT Total Treatment Time: 24 2 :59 PM PDTSNF Transfer - Beto Kothari MD - 06/30/2019 12:32 PM PDTFormatting of this note mi ght be different from the original. [facility] TRANSFER ORD[facility] Patient Name: Steffi Bishop Patient : 1965 Gender: female Date of Admission: 06/22/2019 Date of Discharge: 06/30/2019 Admitting Provider: Cary Chapa DO Discharging Provider: Beto Kothari MD Consultants: Treatment Team: Anastasia Argueta MD PCP: Anat Pickett CODE STATUS: Full Code Admitting Diagnosis: Principal Problem: Status epilepticus Active Problems: Smoker History of alcohol abuse Major depressive disorder Chronic hepatitis C without hepatic coma History of posttraumatic stress disorder (PTSD) Post-ictal state Methamphetamine intoxication MDMA abuse Allergies Allergen Reactions Aspirin Other (See Comments) seizure There is no immunization history on file for this patient. Type: [x] Continue current diet of: Diet general; Effective Now Respiratory: [] CPAP at home setting when asleep [] Incentive Spirometer QID and PRN while awake. [] Oxygen: Lpm NC Bladder: [] Kaplan catheter managment per nursing protocol Other Lines, Tubes and Drains: (to be managed by nursing protocol) [] PICC Line care per protocol Activity/Therapies: [x] PT Evaluation & Treat [] Non Weight Bearing (specify limb(s)): [x] OT Evaluation & Treat [] TURBINE OPERATOR Evaluation Treat Wound/Skin Care: [x] Follow current recommendations of the wound team for treatment. [] Wound Vac management per nursing protocol. Labs/Imaging: [] PT/INR: Frequency per SNF provider Goal INR: [] Fingerstick glucose check before meals and bedtime and PRN [] Labs: Follow up: [place] [id number] [place] [id number] Follow up on 07/04 at 1 PM. [facility] [address] [place] [address] Main Schedule an appointment as soon as possible for a visit intake [facility] [address], [place] [address] Main Go on 07/20/2019 intake; Please arrive at 8:30 a.m. to complete paperwork. Appointment will begin at 9:00 a. m. [place] [id number] [place] [address] Schedule an appointment as soon as possible for a visit in 1 week I have advised this patient that he/she not use tobacco products. TB screening: Upon admission the 1st and 2nd step TST will be done as per protocol if Resid ent has no history of TB or a past positive TST. Pharmacist may substitute equivalent Rx based on facility or insurance formulary as needed unless otherwise specified by physician. Please write "DAYNE" (Dispense as written) if a medi cation should not be substituted. Please make sure to write a diagnosis for ALL medications continued on transfer. Antibioti cs require a stop date. If medications do not contain a SIG, make sure doses/routes and marilee edule is included. Medication Orders New Medications Details Order Next Dose Due midodrine 10 MG tablet Take 1 tablet by mouth 3 times daily as needed (for SBP<90). aka: PROAMATINE By: Beto Kothari MD Quant: 30 tablet phenytoin 300 MG ER capsule Take 1 capsule by mouth every morning. aka: DILANTIN Start: 07/01/2019 By: Beto Kothari MD Quant: 30 capsule thiamine 100 mg tablet Take 1 tablet by mouth Daily. aka: VITAMIN B-1 Start: 07/01/2019 By: Beto Kothari MD Quant: 30 tablet I, Beto Kothari MD, certify that post hospital fpc care is medically necessary o n a continuing basis for any of the conditions for which he/she received care during this ho spitalization. Additional Orders/Instructions: Physician's signature: Beto kothari MD 06/30/2019 12:32 [facility] USE ONLY: [] Admitting orders verbally reviewed with Admitting Physician, modified where appropriate, and approved. Verbal Order from Date: Time: _ RN name: RN signature: [] Admitting orders reviewed, modified where appropriate, and approved. Physician's signature: Date: Time: lan of Care - Carla Shaver RN - 06/29/2019 9:47 PM PDT Problem: Fall Injury Risk Goal: Absence of Fall and Fall-Related Injury Outcome: Ongoing, progressing Intervention: Identify and Manage Contributors to Fall Injury Risk Note: Bed in lowest position, wheels locked, call light within reach, and pathway to bathroom brianna e of clutter. Pt calls appropriately and was provided with non skid footwear. Carla Shaver RN lan of Care - Lauryn Sarmiento RN - 06/29/2019 5:14 PM PDT Problem: Adult Inpatient Plan of Care Goal: Plan of Care Review Outcome: Ongoing, progressing Goal: Readiness for Transition of Care Outcome: Ongoing, progressing Pt ambulating in room to the bathroom. MAP above 65. VSS. Electrolytes replaced per protoco l. Chart check complete. Lauryn Sarmiento RN lan of Care - Jannie Curry, ALAINA - 06/29/2019 3:51 PM PDT Problem: Oral Intake Inadequate Goal: Improved Oral Intake Pt will consume >75% meals/snacks/supplements Outcome: Ongoing, progressing NUTRITION NOTE Summary High risk follow-up. Met with pt. She reports her appetite is improving. She ordered breakf ast - potatoes, eddy, Spanish Aleks thompson. Would like to try a supplement. Nutrition Intake Type of Food/Meals: Active Orders Diet Diet general; Effective Now 100% charted yesterday, 5-10% on 06/27 Medications Folic acid, thiamin, NS @ 50 mL/hr Anthropometrics Current Weight: 53.2 kg (117 lb 4.6 oz) Admit Weight: 54.2 kg (119 lb 7.8 oz) Biochemical Data, Medical Test, and Procedures Recent Labs 06/29/19 1222 06/29/19 0501 NA -- 141 K 3.4* 3.6 GLU -- 95 BUN -- 5* CREA -- 0.6 PHOS -- 2.1* MG -- 1.9 Recommendations General diet Boost Plus BID at breakfast and lunch Encourage PO intake Nutritional Risk Moderate risk Required Follow Up: (H; 06/29/19) Jannie Grider RD 06/29/2019 15:51 lan of Care - Aislinn sultana, Maris Pérez, SHRIMP BOAT CAPTAIN - 06/29/2019 10:37 AM PDTBehavioral Health Specialist received referral from [facility]. I met with patient whom was agreeable to meet with behavioral health sp ecialist. Patient is oriented to person, place and year. Thought process is linear. Mood pre sented as depressed, affect was congruent. During contact, she demonstrated future oriented behavior and language. She stated that she has been binge drinking on a daily basis with com bination of beer and liquor. She replied, "I was drinking to the point of blacking out. Then they told me I had different drugs. I don't even remember using drugs. I don't recall this. This is scary. I have grandchildren I want to be there for. This is a wakeup call. It is sc maxim, scary for me and scary for my children." Patient denied suicidal ideation. She denied h omicidal ideation. Patient reported her daughter is attempting to reconnect her with outpatient treatment at [facility]. I asked patient if she would like assistance with coordinating her services so she may have a plan upon discharge to which patient agreed. We contacted [facility] and Patient provided a Voicemail requesting they return her call to her daughter Sherry mosqueda's cell. Patient noted working with an RN by the name of Mei Waite whom she can als o reach out to for support at this location. Patient and I then contacted [facility] whom she used to be enrolled with for access to individual mental health therapy and medication management services. We spoke with Tommy Willson Coordinator whom provided soonest intake date for July 20, 2019 at 9:00 a.m. Vijaya andrew is requested to arrive by 8:30 a.m. For paperwork completion, and was placed on cancellat ions list for potential sooner appointment date. Patient was informed mental health assessme nt would be completed, and referral would be provided to medication management services as [place]. Patient was provided with typed copy of resouces discussed, as well as coordinate appointme nt date and instructions for [facility]. Information was also included in AVS with patient consent. lan of Car adore Onofre Carla Shaver RN - 06/28/2019 10:24 PM PDT Problem: Adult Inpatient Plan of Care Goal: Absence of Hospital-Acquired Illness or Injury Outcome: Ongoing, progressing Intervention: Identify and Manage Fall Risk Note: Bed in lowest position, wheels locked, and call light within reach. Pt provided with non s kid footwear and pathway to bathroom free of clutter. Bed alarm on. Carla Shaver RN lan of Care - Marty Sarmiento RN - 06/28/2019 7:01 PM PDTProblem: Adult Inpatient Plan of Care Goal: Plan of Care Review Outcome: Ongoing, progressing Problem: Fall Injury Risk Goal: Absence of Fall and Fall-Related Injury Outcome: Ongoing, progressing Map maintained >65 this shift. K replaced per protocol. Hourly rounding uneventful. Chart check complete. Lauryn Sarmiento RN lan of Care - Brittney Cabral, PT - 06/28/2019 3:40 PM PDT Physical Therapy Treatment Note Recommended discharge disposition: (Pt reports she plans to stay with daughter Catarina) Post discharge physical therapy recommendation: home health Equipment Recommendations: 2 wheeled walker (FWW) Barriers to community-based discharge Lack of equipment, Home Design (Pt's daughter's home design unknown), Precautions and Fall risk Planned Interventions: (continue per PT POC) POC (may reflect documentation from different provider) balance training, gait training, t ransfer training Recommended Frequency: 4 times/wk for 7 days PT reassessment due 07/02/19 Next visit information: 06/28; seizure/deconditioning Summary: Pt MAP initially 64 per recent reading on screen. Pt sat upright (while LEs still in bed) and MAP increased to 88, then 84 after ambulation and toileting. Walker masks eugenia ce deficits well (and greatly increases safety with upright mobility). Dynamic balance tasks performed with no AD and pt required consistent min/mod A to maintain balance. Pt particula rly challenged with tandem walking (unable to take more than 1-2 consecutive steps without L OB) and backwards walking (scissors occasionally). Pt tends to utilize hip strategy to maint ain balance and flail UEs. Pt performed toileting with spv for safety (with FWW). MAP decrea sed to 72 following challenging balance tasks. Overall, pt's mobility is improving but recom mend ongoing gait/balance training. Precautions Precaution Comment: BP monitor; MAP>65, CIWA; impulsive (improving) Precautions/Limitations: falls Cognitive Assessment Cognitive Comments: Pt very reflective upon arrival and asking numerous questions about her hospital stay (duration/reason/etc). Pt tearful finding out this was her 6th day at [facility] as pt thought it was her 1st. Pt expresses desire to "make better decisions." Mood/Behavior: calm, cooperative, tearful Orientation: disoriented to, situation, time Bed Mobility Supine to Sit, Level of [place]: supervised Sit to Supine, Level of [place]: modified independent Transfers Sit-Stand, Level of [place]: contact guard assist Stand-Sit, Level of [place]: stand by assist [id number], Assistive Device: gait belt, 2 wheeled walker (FWW) Gait Gait Comments: Increased lateral sway and occasional scissoring with no AD requiring min A to steady. Level of [place]: minimal assist (75% patient effort) Assistive Device: 2 wheeled walker (FWW), gait belt, none Distance (feet): 100x3 Gait Deviations: liat decreased, step length decreased(occasional scissoring with no AD) Safety Issues: balance decreased during turns, sequencing ability decreased, stands too far from assistive device Balance Additional Documentation: retro walk, sidestep, Tinetti (group)(tandem walk x 10 ft with mo d A required for stability) Retro Walkin x 15 ft with min/mod A to steady ( no AD) Sidesteppin x 15 ft ea direction with min A and visual fixation on feet Exercises Additional Documentation: seated exercises Seated exercises: knee flexion, long arc quads Repetitions: x 10 ea BLE Goals Reflects last filed data and may be from multiple contributors. PT Goal Review Date Most Recent Value STG Review Date 07/02/19 at 06/28/2019 1540 LTG Review Date 07/02/19 at 06/25/2019 1300 All Transfers Goal Most Recent Value LTG [place] Level modified independent at 06/25/2019 1300 Gait Goal Most Recent Value LTG [place] Level modified independent at 06/25/2019 1300 LTG Assistive Device 2 wheeled walker (FWW) at 06/25/2019 1300 LTG Distance (feet) 150 at 06/25/2019 1300 PT Time Calculation Individual Start Time: 1540 Individual Stop Time: 1621 Individual Total Time: 41 PT Total Treatment Time: 41 lan of Sally - Nathan hanson, DIMPLE Pineda Marine Oiler - 06/28/2019 2:34 PM PDTCare Management Follow-Up Readmission Risk: Medium Current Discharge Plan Anticipated Discharge Disposition: Daughter's home, Catarina Cardoso in [place]. Expected DC Date: 06/29/19 Barriers to Discharge: none Steps Taken Toward Discharge: SHRIMP BOAT CAPTAIN student called Catarina Hunt to ask if she would pick her mot her up tomorrow, left a voicemail. Next Steps: Community Support Services Community Agency Name: [facility] Other Resources: Pt said she had a prescriber at [employer] but didn't kn ow the name. SHRIMP BOAT CAPTAIN student called [employer] and her account has been closed out. She will need a new referral to go back. SHRIMP BOAT CAPTAIN student called [facility] to make an appointment with her therapist but had to leave a voicemail. Discharge Transportation Transportation Needs: Daughter might be able to transport. Notes: SHRIMP BOAT CAPTAIN student met with Steffi. Pt was given resources for an [employer], low-income housing and housing assistance program. She agreed to meet with Maris from [facility]. UKNAL brown left a voicemail for Maris to meet with her. Steffi has an appointment with her PCP Anat Pickett 07/04/19 at 1 PM at [facility]. Electronically signed: DIMPLE Tapia [employer] Oiler 06/28/2019 14:34 lan of Sally - Antionette Chapa, PT - 06/27/2019 4:27 PM PDT Physical Therapy Treatment Note Recommended discharge disposition: (TBD-homeless at baseline) Barriers to community-based discharge Physical Impairment, Level of assistance for mobility, Lack of equipment, Lack of social victoria pport, Precautions and Fall risk Planned Interventions: (per PT POC) POC (may reflect documentation from different provider) balance training, gait training, t ransfer training Recommended Frequency: 4 times/wk for 7 days PT reassessment due Next visit information: 06/27, seizure/deconditioning Summary: Pt demonstrating global deconditioning, rapid velocity with poor safety and postu ral control and ataxia of movement during transitions and brief gait. Initial MAP 66 with de bolaños to 61 following toileting care/transfer. Noted positive response to brief gait with an d without AD increasing to 76 and 77 respectively. Pt with limited motor planning and poor d evice safety with collision during use of FWW without reduced level of physical assistance w hen not utilizing device suggesting benefit from massed practice training without unfamiliar device with ongoing PT. In current state pt not appropriate to d/c to previous environment and would require post acute rehabilitation. Anticipate further mobility improvments with on going practice all staff members, support for complex d/c planning from SW/CM greatly apprec iated. Precautions Precaution Comment: bp monitor, MAP>65, CIWA, impulsive Precautions/Limitations: falls Cognitive Assessment Mood/Behavior: calm, cooperative Bed Mobility Assistive Device: none Supine to Sit, Level of [place]: stand by assist(due to velocity of movement) Sit to Supine, Level of [place]: modified independent Transfers Additional Documentation: sit to/from stand Sit-Stand, Level of [place]: minimal assist (75% patient effort) Stand-Sit, Level of [place]: minimal assist (75% patient effort) [id number], Assistive Device: gait belt, 2 wheeled walker (FWW) Gait Gait Comments: rapid velocity, forward trunk flexion that increases without AD Level of [place]: minimal assist (75% patient effort) Assistive Device: 2 wheeled walker (FWW), gait belt(performed 1 trial with, 1 without FWW) Distance (feet): 2x20ft Balance Sitting Balance: Static: good balance Sitting Balance: Dynamic: fair balance Standing Balance: Static: fair balance Standing Balance: Dynamic: poor balance Goals Reflects last filed data and may be from multiple contributors. PT Goal Review Date Most Recent Value LTG Review Date 07/02/19 at 06/25/2019 1300 All Transfers Goal Most Recent Value LTG [place] Level modified independent at 06/25/2019 1300 Gait Goal Most Recent Value LTG [place] Level modified independent at 06/25/2019 1300 LTG Assistive Device 2 wheeled walker (FWW) at 06/25/2019 1300 LTG Distance (feet) 150 at 06/25/2019 1300 PT Time Calculation Individual Start Time: 1627 Individual Stop Time: 1651 Individual Total Time: 24 PT Total Treatment Time: 24 lan of Karen Ag RN - 06/27/2019 11:35 AM PDTPatient remains a high fall risk, fall risk christopher col in place, bed locked in lowest position with call light within reach, bed alarm/tab ala rm on lan of Enrique Holly MSW - 06/26/2019 5:15 PM PDTCare Management Follow-Up Readmission Risk: Medium Current Discharge Plan Anticipated Discharge Disposition: Pending Expected DC Date: Saturday 06/30 Barriers to Discharge: Pt is homeless from [facility] Steps Taken Toward Discharge: Initial assessment Next Steps: Homeless resources for [facility]. Will follow up with Pt regarding he r motivation for substance abuse counseling and mental health counseling. Pt has hx of PTSD and ETOH, Depression. Community Support Services Current Outpt/Agency/Support Groups: Pending Discharge Transportation Transportation Needs: family or friend will provide Notes: Per charting, Pt is sumptomatic hypotension worse with activity despite fluid boluse s and albumin administration, ICU has been following. Electronically signed: KUNAL CLANCY 06/26/2019 17:[address] - 06/26/2019 3:41 PM PDTFormatting of this note might be different from sofi borden. NUTRITION NOTE Summary High risk follow up. Talked with pt's RN about her nutritional intake - pt sleeping and per Rn, pt is not doing well medically. Two days ago pt was extubated. Fluid/Beverage Intake Oral Fluids Amount: Ad jack. IV Fluids Running: NS running at 100 mL/hr. Food Intake Amount of Food: Very minimal PO intake. Pt refusing meals. Type of Food/Meals: Active Orders Diet Diet general; Effective Now Nourishments: EN was ordered, but she was put on a general diet late last night and this wa s D/C. Micronutrient Intake Mineral/Element Intake: Folic acid, thiamine, ERP Nutritionally Significant Medications Insulin Nutrition-Focused Physical Findings Overall Appearance: Pt appeared weak/ill. Anthropometrics Wt: 52.8 kg. Wt down 1.4 kg since admit. 2746 mL fluid negative. Wt loss may be contributed to fluid status. Will monitor. Biochemical Data, Medical Test, and Procedures Recent Labs 06/26/19 0403 NA 139 K 3.5 GLU 76 BUN 9 CREA 0.5 PHOS 2.7 MG 1.7 Recommendations Continue general diet, as ordered. If pt's intake continues to remain very poor, recommend restarting EN to provide pt with 100% of est kcal/protein needs. Will continue to follow per nutrition protocol. Nutritional Risk Nutritional Risk: High Follow-Up Date: 06/29/[address], CD lan of Care - Mehreen Calderon RN - 06/26/2019 11:27 AM PDTThis entire shift, p atient dizzy/lightheaded when sitting or standing. Dopamine titrated from 10- to 5 mcg/kg/hr to maintain current goal of MAP >65. Patient slept most of day. 3L urine output this shift. Patient has poor appetite, had only bites of snacks throughout day. End of shift chart check done. Care plan note: Plan of care and daily goals discussed with patient; pt's questions answered, all care expl ained. Patient is calm and cooperative. Safe environment maintained. Seizure precautions and fall prevention bundle continued. Problem: Adult Inpatient Plan of Care Goal: Plan of Care Review 06/26/2019 1127 by Mehreen Calderon, MISAEL Outcome: Ongoing, progressing 06/26/2019 1126 by Mehreen Calderon RN Outcome: Ongoing, progressing Problem: Adult Inpatient Plan of Care Goal: Absence of Hospital-Acquired Illness or Injury 06/26/2019 1127 by Mehreen Calderon RN Outcome: Ongoing, progressing Problem: Fall Injury Risk Goal: Absence of Fall and Fall-Related Injury 06/26/2019 1127 by Mehreen Calderon RN Outcome: Ongoing, progressing 06/26/2019 1126 by Mehreen Calderon RN Outcome: Ongoing, progressing lan of Lissy Garzon RN - 06/26/2019 4:55 AM PDTPt admitted to unit at 1700. Took over care and pt w as hypotensive but asymptomatic. Started w/ fluid bolus and ended with a total of 2L fluid b oluses. Cheetah resulted 11.7. Dopamine was started and pt quickly titrated to 10mcg. SBP fl uctuate low 80's to high 90's. Pt complains of dizziness when sitting up right. VQS using be d jack. Sinus rhythm. RA. Chart check complete. Lissy Madrigal RN lan of Lissy Soto RN - 06/26/2019 3:45 AM PDT Problem: Adult Inpatient Plan of Care Goal: Plan of Care Review Outcome: Ongoing, progressing Goal: Patient-Specific Goal Outcome: Ongoing, progressing Goal: Absence of Hospital-Acquired Illness or Injury Outcome: Ongoing, progressing Goal: Optimal Comfort and Wellbeing Outcome: Ongoing, progressing lan of Babatunde Patterson, PT - 06/25/2019 1:00 PM PDTFormatting of this note might be different from t david original. Physical Therapy Initial Evaluation Note Recommended discharge disposition: other (see comments)(Pt. is homeless, will need to see h ow her mobility improves) Post discharge physical therapy recommendation: (TBD) Equipment Recommendations: (TBD) Barriers to community-based discharge Cognitive Impairment, Physical Impairment, Level of assistance for mobility, Lack of social support and Fall risk Planned Interventions: balance training, gait training, transfer training Recommended Frequency: 4 times/wk for days PT reassessment due Next visit information: 06/25, deconditioning (other) Summary: Pt. admitted w/ seizure activity. The pt. has hx. of ETOH abuse. She is hypoten sive requiring Levophed. The pt.'s BP was 90/57 prior to initial upright, upon stance, BP d ecreased to 80s/50s. RN increased Levo with BP response up to the 110s/60s. The pt. was le thargic however exhibited fair strength. She ambulated approx. 50 ft. in total requiring mi n to modA due to gait path deviation while using FWW. Anticipate that as the pt. becomes mo re alert, her mobility will continue to improve near her baseline status. Living Environment Lives With: friend(s) Living Arrangements: homeless Functional Level Prior Transferring: independent Ambulation: independent Equipment Currently Used at Home: none Precautions Precaution Comment: fall risk, watch BP Cognitive Assessment Mood/Behavior: flat affect Orientation: disoriented to, time, situation Impairments Found (describe specific impairments): arousal, attention, and cognition, gait, locomotion, and balance, functional endurance/activity tolerance Bed Mobility Additional Documentation: supine to/from sit Supine to Sit, Level of [place]: minimal assist (75% patient effort), moderate assist (50% patient effort) Transfers Additional Documentation: sit to/from stand Sit-Stand, Level of [place]: minimal assist (75% patient effort), moderate assist (50% patient effort) Gait Level of [place]: minimal assist (75% patient effort), moderate assist (50% patient ef fort), 1 person + 1 person to manage equipment Assistive Device: 2 wheeled walker (FWW) Distance (feet): 25'x2 bouts Additional Documentation: pattern, deviations, safety, impairments Gait Deviations: liat decreased, step length decreased Safety Issues: balance decreased during turns, sequencing ability decreased, stands too far from assistive device Balance Sitting Balance: Static: fair balance Sitting Balance: Dynamic: fair balance Standing Balance: Static: fair balance Standing Balance: Dynamic: poor balance Goals Reflects last filed data and may be from multiple contributors. PT Goal Review Date Most Recent Value LTG Review Date 07/02/19 at 06/25/2019 1300 All Transfers Goal Most Recent Value LTG [place] Level modified independent at 06/25/2019 1300 Gait Goal Most Recent Value LTG [place] Level modified independent at 06/25/2019 1300 LTG Assistive Device 2 wheeled walker (FWW) at 06/25/2019 1300 LTG Distance (feet) 150 at 06/25/2019 1300 Babatunde Sotelo PT, DPT oals of Tyler Romo MD - 06/25/2019 10:44 AM PDTGoals of Care Spoke with dtr and son, discussed overall outcome, talked about etiologies of seizures, and management.all questions answered. lan of Marylu Chavarria MSW - 06/25/2019 10:44 AM PDTAttended morning r ounds. Extubated yesterday. ECHO today. Sleeps mostly. Swallowed pills with water. On levoph ed. Await PT to eval and make recs. Will be difficult to place if SNF needed due to recent drug use. lan of Brynn Blandon RN - 019 3:41 AM PDTPts bed in low and locked position with call davey in reach and bed in low an d locked position with call davey in reach. Non-slip socks on. Pt instructed to call for as sistance. lan of Antionette Pelayo Student - 06/24/2019 2:44 PM PDT Problem: Device-Related Complication Risk (Mechanical Ventilation, Invasive) Goal: Optimal Device Function Outcome: Met Problem: Inability to Wean (Mechanical Ventilation, Invasive) Goal: Mechanical Ventilation Liberation Outcome: Met Patient was placed on a spontaneous breathing trial at 950 with no complications. She was extubated at 1105 to 2L nasal cannula. Electronically signed by Peter Arcos, LYLE at 06/06 5:31 PM PDTPlan of Marylu Chavarria MSW - 06/24/2019 1:45 PM PDTCare Managem ent Initial Assessment Readmission Risk: Medium Met with pt's daughter and pt's sister. Pt has been homeless for over 10 years. She has be en drug addicted off and on and had use of etoh off and on. Pt's family members all have sera undaries set and pt knows that she cannot stay at their house if she plans to use. Discussed possible need for SNF. [facility] is the only option in [place] but sister not very happy with that option. Discussed Amaury Galvin without any resolution from famil y about choice. Will need to discuss options with pt when she is more awake and alert. Pt wa s extubated this morning. She is currently sleeping and not participating in our discussion . Pt has 2 sons in [place] as well, Zacarias and Enrique. All children are in their 30's. Pt is on food stamps. No income. Unemployed for the ost part. "Can't keep a job" per negin ambrose Pt is . Status Prior to Admission or Illness Arrival From: admitted as an inpatient Lives With: friend(s) Living Arrangements: homeless Caregiver For: no one Patient s Caregiver: no one Functional Status: independent, does not use DME Caregiving Concerns: no care transition manager pr family member to care for pt after d/c. Home Accessibility: homeless Transportation Available: family or friend will provide Able to return to prior living: other (see comments) Care Management Concerns Readmission Within Last 30 Days: no previous admission in last 30 days PCP: RAFFI Ji Contact Information Family Contact Information: Name: Catarina Oropeza Pager: Fax: DC Needs Assessment Current Outpt/Agency/Support Groups: Community Agency Name: Anticipated Changes Related to Illness: inability to care for self Concerns to be Addressed: homelessness/housing concerns Services Anticipated at Discharge: fpc facility Equipment Used at Home: none Pharmacy/Medication Needs: Transportation Needs: family or friend will provide Initial Plan Anticipated Discharge Disposition: Expected DC Date: other (see comments) Notes: Electronically signed: KUNAL MACIAS 06/24/2019 13:46 lan of Care - Marylu Berg MSW - 06/23/2019 2:29 PM PDTUnable to complete assessment as pt's Aunt has not yet returned my call. I called [facility] and obtained the name/number of pt's philipp mckinney. Her name is Catarina Oropeza and her reportedl address is [address] [place] [address] Rd, [place], [place]. ([phone]). I left a message on the number though [facility] was unsure if it was the correct [facility]. I called the [facility] ([phone]) and requested that they go by daughters home to s if she is there and to call me back. Addendum: Received t/c from pt's daughter. She informed that she would be visiting [facility] after work around 6pm. Notified RN. Will try to complete assessment tomorrow. Per [facility], pt drinks daily. She smokes MJ daily. There have been times of illicit drug use. lan of [facility] - Max Laura, RD - 06/23/2019 1:55 PM PDTFormatting of this note might be different fro m the original. Problem: Oral Intake Inadequate Description Inadequate oral intake related to sedation induced inability to eat aeb NPO order, on MV. Goal: Improved Oral Intake Description Pt will tolerate TF at goal. Recommend TF of Isosource 1.5 start at 15 ml/hr and advance as tolerated by 15 ml/hr q 4 hr until goal of 50 ml/hr (x20hr/d) is reached. TF at goal will provide 1500 kcal, 68 g protei n, 1000 ml TV, and 764 ml free water. TF and propofol together will provide 1629 kcal, 68 g protein which supplies 30 kcal/kg and 1.25 g pro/kg based on admit wt 54.2 kg. Free water fl ushes 30 ml q 4 hrs. Monitor K+, Mg, and phos and replace to wnl if low before starting/adva ncing feeds as pt may be at risk for refeeding syndrome Outcome: Ongoing, progressing 06/23/19 1343 Reason for Assessment Reason For Assessment physician consult (Consult - TF eval. ) Diagnosis (Pt admitted status epilepticus, + for meth and MDMA, has hx of ETOH abuse, drug abuse, dep ression, PTSD. Pt is intubated, sedated, plan is to start EN feeds per MD.) Nutrition/Diet History Patient Reported Diet/Restrictions/Preferences ( No family present at time of visit, unable to obtain diet recall. ) Typical Food/Fluid Intake NPO Meal/Snack Patterns NPO Admit Weight Admit Weight 54.2 kg (119 lb 7.8 oz) Body Mass Index (BMI) BMI Grade 18.5-24.9 - normal Labs/Tests/Procedures/Meds Additional Documentation Diagnostic Tests/Procedures (Group) (K+ 2.8 L, Mg 1.6 L, BG 140 H. ) Pertinent Medications Reviewed reviewed (insulin, folic acid, thiamine, lyte replacement protocol. NS at 75 ml/hr. Propofol at 4.9 ml/hr provides 129 kcal/day. ) Physical Findings/Assessment Tubes orogastric tube Estimated/Assessed Needs Energy Calorie Requirements 1355 - 1626 kcal/day. Energy Need Method Kcal/kg (25 - 30 kcal/kg/admit wt 54.2 kg. ) Range Gm Protein (gm) 65 - 81 g protein/day. (1.2 - 1.5 g pro/kg/admit wt 54.2 kg) Nutrition Prescription Ordered Nutrition Order Comments Recommend TF of Isosource 1.5 start at 15 ml/hr and advance as tyshawn erated by 15 ml/hr q 4 hr until goal of 50 ml/hr (x20hr/d) is reached. TF at goal will provi de 1500 kcal, 68 g protein, 1000 ml TV, and 764 ml free water. TF and propofol together will provide 1629 kcal, 68 g protein which supplies 30 kcal/kg and 1.25 g pro/kg based on admit wt 54.2 kg. Free water flushes 30 ml q 4 hrs. Monitor K+, Mg, and phos and replace to wnl if low before starting/advancing feeds as pt may be at risk for refeeding syndrome. Assessment Required Follow Up 3 days (06/26 H) Amaury Laura RD, CD lan of Care - Marylu Berg MSW - 06/23/2019 10:40 AM PDTCalled pt's Aunt Margo Hinson ([phone]) and requested a return call with time of her visit today. Also asked the Aunt to give us pt's ira silva name and number. Await her return call. lan of Care - Brynn Ayala RN - 06/23/2019 6:52 AM PDTPt has been provided with Q2H turns, heels floating, pressure points have been placed on davion ws. documented in this encounter Plan of Treatment + +------+--------+ + [...] [facility] | | | | performed at [facility];[address] | mmol/L | LABORATORY | | | | [address];[place] | | | | | | [address] | | | | + + + + + + + + | Specimen | + + | Blood | + + + + + + + | Performing | Address | City/State/Zipcode | Phone Number | | Organization | | | | + + + + + | [facility] | [address] | [place] [address] | [phone] | + + + + + Potassium (07/03/2019 4:17 AM PDT) + + + + + + | Component | Value | Ref Range | Performed | Pathologist | | | | | At | Signature | + + + + + + | K | 3.9Comment: Testing | 3.5 - 4.9 | [facility] | | | | performed at [facility];888 | mmol/L | LABORATORY | | | | [address];[place] | | | | | | [address] | | | | + + + + + + + + | Specimen | + + | Blood | + + + + + + + | Performing | Address | City/State/Zipcode | Phone Number | | Organization | | | | + + + + + | [facility] | [address] | [place] [address] | [phone] | + + + + + Phosphorus (07/03/2019 4:17 AM PDT) + + + + + + | Component | Value | Ref Range | Performed | Pathologist | | | | | At | Signature | + + + + + + | Phosphorus | 4.6Comment: Testing | 2.3 - 4.8 mg/dL | [facility] | | | | performed at [facility], [address] | | LABORATORY | | | | [address], | | | | | | [place] [address] | | | | + + + + + + + + | Specimen | + + | Blood | + + + + + + + | Performing | Address | City/State/Zipcode | Phone Number | | Organization | | | | + + + + + | [facility] | [address] | [place] [address] | [phone] | + + + + + Magnesium (07/03/2019 4:17 AM PDT) + + + + + + | Component | Value | Ref Range | Performed | Pathologist | | | | | At | Signature | + + + + + + | Magnesium | 2.2Comment: Testing | 1.7 - 2.4 mg/dL | [facility] | | | | performed at [facility], [address] | | LABORATORY | | | | [address], | | | | | | [place] [address] | | | | + + + + + + + + | Specimen | + + | Blood | + + + + + + + | Performing | Address | City/State/Zipcode | Phone Number | | Organization | | | | + + + + + | [facility] | [address] | [place] [address] | [phone] | + + + + + Potassium (07/02/2019 4:30 AM PDT) + + + + + + | Component | Value | Ref Range | Performed | Pathologist | | | | | At | Signature | + + + + + + | K | 4.1Comment: Testing | 3.5 - 4.9 | [facility] | | | | performed at [facility];[address] | mmol/L | LABORATORY | | | | [address];[place] | | | | | | [address] | | | | + + + + + + + + | Specimen | + + | Blood | + + + + + + + | Performing | Address | City/State/Zipcode | Phone Number | | Organization | | | | + + + + + | [facility] | [address] | [place] [address] | [phone] | + + + + + Phosphorus (07/02/2019 4:30 AM PDT) + + + + + + | Component | Value | Ref Range | Performed | Pathologist | | | | | At | Signature | + + + + + + | Phosphorus | 4.6Comment: Testing | 2.3 - 4.8 mg/dL | [facility] | | | | performed at [facility], [address] | | LABORATORY | | | | [address], | | | | | | [place] [address] | | | | + + + + + + + + | Specimen | + + | Blood | + + + + + + + | Performing | Address | City/State/Zipcode | Phone Number | | Organization | | | | + + + + + | [facility] | [address] | [place] [address] | [phone] | + + + + + Magnesium (07/02/2019 4:30 AM PDT) + + + + + + | Component | Value | Ref Range | Performed | Pathologist | | | | | At | Signature | + + + + + + | Magnesium | 2.1Comment: Testing | 1.7 - 2.4 mg/dL | [facility] | | | | performed at [facility], [address] | | LABORATORY | | | | [address], | | | | | | [place] [address] | | | | + + + + + + + + | Specimen | + + | Blood | + + + + + + + | Performing | Address | City/State/Zipcode | Phone Number | | Organization | | | | + + + + + | [facility] | [address] | [place] [address] | [phone] | + + + + + Renal [...] 3.6 | 2.3 - 4.8 mg/dL | [facility] | | | | | | LABORATORY | | + + + + + + | Estimated | >60Comment: GFR <60: | >60 | [facility] | | | GFR | [...] | | | | | | MDRD [facility] traceable | | | | | | equation.Testing | | | | | | performed at [facility];[address] | | | | | | [facility];[place], [place] | | | | | | [address] | | | | + + + + + + + + | Specimen | + + | | + + + + + + + | Performing | Address | City/State/Zipcode | Phone Number | | Organization | | | | + + + + + | [facility] | [address] | [place] [address] | [phone] | + + + + + Phosphorus (07/01/2019 7:41 AM PDT) + + + + + + | Component | Value | Ref Range | Performed | Pathologist | | | | | At | Signature | + + + + + + | Phosphorus | 3.5Comment: Testing | 2.3 - 4.8 mg/dL | [facility] | | | | performed at [facility];[address] | | LABORATORY | | | | [address];[place] | | | | | | [address] | | | | + + + + + + + + | Specimen | + + | | + + + + + + + | Performing | Address | City/State/Zipcode | Phone Number | | Organization | | | | + + + + + | [facility] | [address] [facility] | [place] [address] | [phone] | + + + + + Magnesium (07/01/2019 7:41 AM PDT) + + + + + + | Component | Value | Ref Range | Performed | Pathologist | | | | | At | Signature | + + + + + + | Magnesium | 1.8Comment: Testing | 1.7 - 2.4 mg/dL | [facility] | | | | performed at [facility];[address] | | LABORATORY | | | | [address];[place], [place] | | | | | | [address] | | | | + + + + + + + + | Specimen | + + | | + + + + + + + | Performing | Address | City/State/Zipcode | Phone Number | | Organization | | | | + + + + + | [facility] | [address] | [place] [address] | [phone] | + + + + + Potassium (07/01/2019 7:41 AM PDT) + + + + + + | Component | Value | Ref Range | Performed | Pathologist | | | | | At | Signature | + + + + + + | K | 3.9Comment: Testing | 3.5 - 4.9 | [facility] | | | | performed at [facility];[address] | mmol/L | LABORATORY | | | | [address];[place] | | | | | | [address] | | | | + + + + + + + + | Specimen | + + | | + + + + + + + | Performing | Address | City/State/Zipcode | Phone Number | | Organization | | | | + + + + + | [facility] | [address] | [place] [address] | [phone] | + + + + + Potassium (06/30/2019 10:31 AM PDT) + + + + + + | Component | Value | Ref Range | Performed | Pathologist | | | | | At | Signature | + + + + + + | K | 3.4 (L)Comment: Testing | 3.5 - 4.9 | [facility] | | | | performed at [facility];[address] | mmol/L | LABORATORY | | | | [address];[place], [place] | | | | | | [address] | | | | + + + + + + + + | Specimen | + + | Blood | + + + + + + + | Performing | Address | City/State/Zipcode | Phone Number | | Organization | | | | + + + + + | [facility] | [address] | [place] [address] | [phone] | + + + + + Phosphorus (06/30/2019 5:08 AM PDT) + + + + + + | Component | Value | Ref Range | Performed | Pathologist | | | | | At | Signature | + + + + + + | Phosphorus | 3.0Comment: Testing | 2.3 - 4.8 mg/dL | [facility] | | | | performed at [facility], [address] | | LABORATORY | | | | [address], | | | | | | [place] [address] | | | | + + + + + + + + | Specimen | + + | Blood | + + + + + + + | Performing | Address | City/State/Zipcode | Phone Number | | Organization | | | | + + + + + | [facility] | [address] | [place] [address] | [phone] | + + + + + Magnesium (06/30/2019 5:08 AM PDT) + + + + + + | Component | Value | Ref Range | Performed | Pathologist | | | | | At | Signature | + + + + + + | Magnesium | 2.0Comment: Testing | 1.7 - 2.4 mg/dL | [facility] | | | | performed at [facility], [address] | | LABORATORY | | | | [address], | | | | | | [place] [address] | | | | + + + + + + + + | Specimen | + + | Blood | + + + + + + + | Performing | Address | City/State/Zipcode | Phone Number | | Organization | | | | + + + + + | [facility] | [address] | [place] [address] | [phone] | + + + + + Renal [...] 2.9 | 2.3 - 4.8 mg/dL | [facility] | | | | | | [facility] | | + + + + + + | Estimated | >60Comment: GFR <60: | >60 | [facility] | | | GFR | [...] | | | performed at [facility], [address] | | | | | | [facility], | | | | | | [place] [address] | | | | + + + + + + + + | Specimen | + + | Blood | + + + + + + + | Performing | Address | City/State/Zipcode | Phone Number | | Organization | | | | + + + + + | [facility] | [address] | [place] [address] | [phone] | + + + + + Potassium (06/30/2019 4:37 AM PDT) + + + + + + | Component | Value | Ref Range | Performed | Pathologist | | | | | At | Signature | + + + + + + | K | 3.6Comment: Testing | 3.5 - 4.9 | [facility] | | | | performed at [facility];[address] | mmol/L | LABORATORY | | | | [address];[place] | | | | | | [address] | | | | + + + + + + + + | Specimen | + + | Blood | + + + + + + + | Performing | Address | City/State/Zipcode | Phone Number | | Organization | | | | + + + + + | [facility] | [address] | [place] [address] | [phone] | + + + + + Potassium (06/29/2019 5:46 PM PDT) + + + + + + | Component | Value | Ref Range | Performed | Pathologist | | | | | At | Signature | + + + + + + | K | 4.1Comment: Testing | 3.5 - 4.9 | [facility] | | | | performed at [facility];[address] | mmol/L | LABORATORY | | | | [facility];[place], [place] | | | | | | [address] | | | | + + + + + + + + | Specimen | + + | Blood | + + + + + + + | Performing | Address | City/State/Zipcode | Phone Number | | Organization | | | | + + + + + | [facility] | [address] | [place] [address] | [phone] | + + + + + Potassium (06/29/2019 12:22 PM PDT) + + + + + + | Component | Value | Ref Range | Performed | Pathologist | | | | | At | Signature | + + + + + + | K | 3.4 (L)Comment: Testing | 3.5 - 4.9 | [facility] | | | | performed at [facility];[address] | mmol/L | LABORATORY | | | | [address];[place] | | | | | | [address] | | | | + + + + + + + + | Specimen | + + | Blood | + + + + + + + | Performing | Address | City/State/Zipcode | Phone Number | | Organization | | | | + + + + + | [facility] | [address] | [place] [address] | [phone] | + + + + + Magnesium (06/29/2019 5:01 AM PDT) + + + + + + | Component | Value | Ref Range | Performed | Pathologist | | | | | At | Signature | + + + + + + | Magnesium | 1.9Comment: Testing | 1.7 - 2.4 mg/dL | [facility] | | | | performed at [facility], [address] | | LABORATORY | | | | [address], | | | | | | [place] [address] | | | | + + + + + + + + | Specimen | + + | | + + + + + + + | Performing | Address | City/State/Zipcode | Phone Number | | Organization | | | | + + + + + | [facility] | [address] | [place] [address] | [phone] | + + + + + Renal [...] | >60Comment: GFR <60: | >60 | [facility] | | | GFR | [...] | | | | | | MDRD [facility] traceable | | | | | | equation.Testing | | | | | | performed at [facility], [address] | | | | | | [facility], | | | | | | [place] [address] | | | | + + + + + + + + | Specimen | + + | Blood | + + + + + + + | Performing | Address | City/State/Zipcode | Phone Number | | Organization | | | | + + + + + | [facility] | [address] | [place] [address] | [phone] | + + + + + CBC [...] + + + | Red Blood | 3.93 | 3.70 - 5.10 | [...] | | | performed at [facility], [address] | | LABORATORY | | | | [address], | | | | | | [place] [address] | | | | + + + + + + + + | Specimen | + + | | + + + + + + + | Performing | Address | City/State/Zipcode | Phone Number | | Organization | | | | + + + + + | [facility] | [address] | [place] [address] | [phone] | + + + + + Potassium (06/28/2019 5:01 PM PDT) + + + + + + | Component | Value | Ref Range | Performed | Pathologist | | | | | At | Signature | + + + + + + | K | 3.5Comment: Testing | 3.5 - 4.9 | [facility] | | | | performed at [facility];[address] | mmol/L | LABORATORY | | | | [address];[place], [place] | | | | | | [address] | | | | + + + + + + + + | Specimen | + + | Blood | + + + + + + + | Performing | Address | City/State/Zipcode | Phone Number | | Organization | | | | + + + + + | [facility] | [address] | [place] [address] | [phone] | + + + + + Potassium (06/28/2019 9:43 AM PDT) + + + + + + | Component | Value | Ref Range | Performed | Pathologist | | | | | At | Signature | + + + + + + | K | 3.1 (L)Comment: Testing | 3.5 - 4.9 | [facility] | | | | performed at [facility];[address] | mmol/L | LABORATORY | | | | [address];[place], [place] | | | | | | [address] | | | | + + + + + + + + | Specimen | + + | Blood | + + + + + + + | Performing | Address | City/State/Zipcode | Phone Number | | Organization | | | | + + + + + | [facility] | [address] | [place] [address] | [phone] | + + + + + Phenytoin Level, Total (06/28/2019 9:43 AM PDT) + + + + + + | Component | Value | Ref Range | Performed | Pathologist | | | | | At | Signature | + + + + + + | Date of | | | [facility] | | | Last Dose | | | LABORATORY | | + + + + + + | Time of | | | [facility] | | | Last Dose | | | LABORATORY | | + + + + + + | Dilantin | 5.1 (L)Comment: Testing | 10 - 20 ug/mL | [facility] | | | | performed at [facility] | | LABORATORY | | | | [facility];[place], [place] | | | | | | [address] | | | | + + + + + + + + | Specimen | + + | Blood | + + + + + + + | Performing | Address | City/State/Zipcode | Phone Number | | Organization | | | | + + + + + | [facility] | [address] | [place] [address] | [phone] | + + + + + POC Glucose (06/28/2019 8:17 AM PDT) + + + + + + | Component | Value | Ref Range | Performed | Pathologist | | | | | At | Signature | + + + + + + | Glucose, | 148 (H)Comment: Testing | 65 - 99 mg/dL | [facility] | | | POC | performed at [facility];[address] | | LABORATORY | | | | [address];[place], [place] | | | | | | [address] | | | | + + + + + + + + | Specimen | + + | | + + + + + + + | Performing | Address | City/State/Zipcode | Phone Number | | Organization | | | | + + + + + | [facility] | [address] | [place] [address] | [phone] | + + + + + Phosphorus (06/28/2019 1:42 AM PDT) + + + + + + | Component | Value | Ref Range | Performed | Pathologist | | | | | At | Signature | + + + + + + | Phosphorus | 2.8Comment: Testing | 2.3 - 4.8 mg/dL | [facility] | | | | performed at [facility], [address] | | LABORATORY | | | | [address], | | | | | | [place] [address] | | | | + + + + + + + + | Specimen | + + | Blood | + + + + + + + | Performing | Address | City/State/Zipcode | Phone Number | | Organization | | | | + + + + + | [facility] | [address] | [place] [address] | [phone] | + + + + + Magnesium (06/28/2019 1:42 AM PDT) + + + + + + | Component | Value | Ref Range | Performed | Pathologist | | | | | At | Signature | + + + + + + | Magnesium | 1.8Comment: Testing | 1.7 - 2.4 mg/dL | [facility] | | | | performed at [facility], [address] | | LABORATORY | | | | [address], | | | | | | [place] [address] | | | | + + + + + + + + | Specimen | + + | Blood | + + + + + + + | Performing | Address | City/State/Zipcode | Phone Number | | Organization | | | | + + + + + | [facility] | [address] | [place] [address] | [phone] | + + + + + CBC [...] + + + | Red Blood | 4.04 | 3.70 - 5.10 | [...] | Absolute | performed at [facility], [address] | K/uL | LABORATORY | | | | [address], | | | | | | [place] [address] | | | | + + + + + + + + | Specimen | + + | Blood | + + + + + + + | Performing | Address | City/State/Zipcode | Phone Number | | Organization | | | | + + + + + | [facility] | [address] | [place] [address] | [phone] | + + + + + Basic [...] | >60Comment: GFR <60: | >60 | [facility] | | | GFR | [...] | | | | | | MDRD [facility] traceable | | | | | | equation.Testing | | | | | | performed at [facility], [address] | | | | | | [facility], | | | | | | [place] [address] | | | | + + + + + + + + | Specimen | + + | Blood | + + + + + + + | Performing | Address | City/State/Zipcode | Phone Number | | Organization | | | | + + + + + | [facility] | [address] | [place] [address] | [phone] | + + + + + Culture, Blood (06/27/2019 5:05 PM PDT) + + + + + + | Component | Value | Ref Range | Performed | Pathologist | | | | | At | Signature | + + + + + + | Special | R.AC | | [facility] | | | Requests | | | LABORATORY | | + + + + + + | Special | Testing performed at | | [facility] | | | Requests | [address]M;[address] | | LABORATORY | | | | [address];[place] [address] | | | | + + + + + + | RESULT | NO GROWTH 6 DAYS | | [facility] | | | | | | LABORATORY | | + + + + + + | RESULT | Testing performed at | | [facility] | | | | [facility], [address] [facility] | | LABORATORY | | | | Court [place], [place] | | | | | | [id number]: Testing | | | | | | performed at [facility], [address] | | | | | [address] [place], [place] | | | | | | [address] | | | | + + + + + + + + | Specimen | + + | Blood - Peripheral | | blood specimen | | (specimen) | + + + + + + + | Performing | Address | City/State/Zipcode | Phone Number | | Organization | | | | + + + + + | [facility] | [address] | [place] [address] | [phone] | + + + + + POC Glucose (06/27/2019 5:01 PM PDT) + + + + + + | Component | Value | Ref Range | Performed | Pathologist | | | | | At | Signature | + + + + + + | Glucose, | 95Comment: Testing | 65 - 99 mg/dL | [facility] | | | POC | performed at [facility];[address] | | LABORATORY | | | | [address];[place] | | | | | | [address] | | | | + + + + + + + + | Specimen | + + | | + + + + + + + | Performing | Address | City/State/Zipcode | Phone Number | | Organization | | | | + + + + + | [facility] | [address] | [place] [address] | [phone] | + + + + + Culture, [...] Special | Testing performed at | | [facility] | | | Requests | [facility];[address] | | LABORATORY | | | | Court;[place] [address] | | | | + + + + + + | RESULT | NO GROWTH 6 DAYS | | [facility] | | | | | | LABORATORY | | + + + + + + | RESULT | Testing performed at | | [facility] | | | | L, [address] [facility] | | LABORATORY | | | | [place] | | | | | | [address]Ozqsjke: Testing | | | | | | performed at [facility], [address] | | | | | | [place] | | | | | | [address] | | | | + + + + + + + + | Specimen | + + | Blood - Peripheral | | blood specimen | | (specimen) | + + + + + + + | Performing | Address | City/State/Zipcode | Phone Number | | Organization | | | | + + + + + | [facility] | [address] | [place] [address] | [phone] | + + + + + Phosphorus (06/27/2019 4:29 AM PDT) + + + + + + | Component | Value | Ref Range | Performed | Pathologist | | | | | At | Signature | + + + + + + | Phosphorus | 3.3Comment: Testing | 2.3 - 4.8 mg/dL | [facility] | | | | performed at [facility], [address] | | LABORATORY | | | | [place], | | | | | | [place] [address] | | | | + + + + + + + + | Specimen | + + | Blood | + + + + + + + | Performing | Address | City/State/Zipcode | Phone Number | | Organization | | | | + + + + + | [facility] | [address] [facility] | [place] [address] | [phone] | + + + + + Magnesium (06/27/2019 4:29 AM PDT) + + + + + + | Component | Value | Ref Range | Performed | Pathologist | | | | | At | Signature | + + + + + + | Magnesium | 1.6 (L)Comment: Testing | 1.7 - 2.4 mg/dL | [facility] | | | | performed at [facility], [address] | | LABORATORY | | | | [place], | | | | | | [place] [address] | | | | + + + + + + + + | Specimen | + + | Blood | + + + + + + + | Performing | Address | City/State/Zipcode | Phone Number | | Organization | | | | + + + + + | [facility] | [address] | [place] [address] | [phone] | + + + + + CBC [...] + + + | Red Blood | 4.41 | 3.70 - 5.10 | [...] | Absolute | performed at [facility], [address] | K/uL | LABORATORY | | | | [place], | | | | | | [place] [address] | | | | + + + + + + + + | Specimen | + + | Blood | + + + + + + + | Performing | Address | City/State/Zipcode | Phone Number | | Organization | | | | + + + + + | [facility] | [address] | [place] [address] | [phone] | + + + + + Basic [...] | 8.6 | 8.5 - 10.5 | [facility] | | | | | mg/dL | LABORATORY | | + + + + + + | Estimated | >60Comment: GFR <60: | >60 | [facility] | | | GFR | CHRONIC KIDNEY [...] | | | performed at [facility], [address] | | | | | | [facility], | | | | | | [place] [address] | | | | + + + + + + + + | Specimen | + + | Blood | + + + + + + + | Performing | Address | City/State/Zipcode | Phone Number | | Organization | | | | + + + + + | [facility] | [address] | [place] [address] | [phone] | + + + + + POC Glucose (06/26/2019 9:25 PM PDT) + + + + + + | Component | Value | Ref Range | Performed | Pathologist | | | | | At | Signature | + + + + + + | Glucose, | 97Comment: Testing | 65 - 99 mg/dL | [facility] | | | POC | performed at [facility];[address] | | LABORATORY | | | | [address];[place] | | | | | | [address] | | | | + + + + + + + + | Specimen | + + | | + + + + + + + | Performing | Address | City/State/Zipcode | Phone Number | | Organization | | | | + + + + + | [facility] | [address] | [place] [address] | [phone] | + + + + + POC Glucose (06/26/2019 11:45 AM PDT) + + + + + + | Component | Value | Ref Range | Performed | Pathologist | | | | | At | Signature | + + + + + + | Glucose, | 88Comment: Testing | 65 - 99 mg/dL | [facility] | | | POC | performed at [facility];[address] | | LABORATORY | | | | [address];[place], [place] | | | | | | [address] | | | | + + + + + + + + | Specimen | + + | | + + + + + + + | Performing | Address | City/State/Zipcode | Phone Number | | Organization | | | | + + + + + | [facility] | [address] | [place] [address] | [phone] | + + + + + ECG [...] + | Kali, Maximus Results In - 06/26/2019 9:03 AM PDT [...] PROCALCITON | 0.15Comment: | <0.5 ng/mL | [facility] | | | IN | INTERPRETIVE | [...] | | | | | | at [facility];[address] [place] [address] | | | | | | [facility];[place] [address] | | | | + + + + + + + + | Specimen | + + | Blood | + + + + + + + | Performing | Address | City/State/Zipcode | Phone Number | | Organization | | | | + + + + + | [facility] | [address] | [place] [address] | [phone] | + + + + + TSH, Reflex Free T4 (06/26/2019 4:03 AM PDT) + + + + + + | Component | Value | Ref Range | Performed | Pathologist | | | | | At | Signature | + + + + + + | TSH | 0.560Comment: Testing | 0.450 - 5.100 | [facility] | | | | performed at [facility], [address] | uIU/mL | LABORATORY | | | | [place], | | | | | | [place] [address] | | | | + + + + + + + + | Specimen | + + | Blood | + + + + + + + | Performing | Address | City/State/Zipcode | Phone Number | | Organization | | | | + + + + + | [facility] | [address] | [place] [address] | [phone] | + + + + + Phosphorus (06/26/2019 4:03 AM PDT) + + + + + + | Component | Value | Ref Range | Performed | Pathologist | | | | | At | Signature | + + + + + + | Phosphorus | 2.7Comment: Testing | 2.3 - 4.8 mg/dL | [facility] | | | | performed at [facility], [address] | | LABORATORY | | | | [place], | | | | | | [place] [address] | | | | + + + + + + + + | Specimen | + + | Blood | + + + + + + + | Performing | Address | City/State/Zipcode | Phone Number | | Organization | | | | + + + + + | [facility] | [address] | [place] [address] | [phone] | + + + + + Magnesium (06/26/2019 4:03 AM PDT) + + + + + + | Component | Value | Ref Range | Performed | Pathologist | | | | | At | Signature | + + + + + + | Magnesium | 1.7Comment: Testing | 1.7 - 2.4 mg/dL | [facility] | | | | performed at [facility], [address] | | LABORATORY | | | | [place], | | | | | | [place] [address] | | | | + + + + + + + + | Specimen | + + | Blood | + + + + + + + | Performing | Address | City/State/Zipcode | Phone Number | | Organization | | | | + + + + + | [facility] | [address] | [place] [address] | [phone] | + + + + + CBC [...] + + + | Red Blood | 3.88 | 3.70 - 5.10 | [...] | Absolute | performed at [facility], [address] | K/uL | LABORATORY | | | | [address], | | | | | | [place] [address] | | | | + + + + + + + + | Specimen | + + | Blood | + + + + + + + | Performing | Address | City/State/Zipcode | Phone Number | | Organization | | | | + + + + + | [facility] | [address] | [place] [address] | [phone] | + + + + + Basic [...] | >60Comment: GFR <60: | >60 | [facility] | | | GFR | [...] | | | performed at [facility], [address] | | | | | | [facility], | | | | | | [place] [address] | | | | + + + + + + + + | Specimen | + + | Blood | + + + + + + + | Performing | Address | City/State/Zipcode | Phone Number | | Organization | | | | + + + + + | [facility] | [address] | [place] [address] | [phone] | + + + + + Cortisol, AM (06/26/2019 4:03 AM PDT) + + + + + + | Component | Value | Ref Range | Performed | Pathologist | | | | | At | Signature | + + + + + + | Cortisol AM | 19.9Comment: Testing | 4.3 - 22.4 | [facility] | | | | performed at [facility], [address] | ug/dL | LABORATORY | | | | [place], | | | | | | [place] [address] | | | | + + + + + + + + | Specimen | + + | Blood | + + + + + + + | Performing | Address | City/State/Zipcode | Phone Number | | Organization | | | | + + + + + | [facility] | [address] | [place] [address] | [phone] | + + + + + POC Glucose (06/25/2019 8:57 PM PDT) + + + + + + | Component | Value | Ref Range | Performed | Pathologist | | | | | At | Signature | + + + + + + | Glucose, | 72Comment: Testing | 65 - 99 mg/dL | [facility] | | | POC | performed at [facility];[address] | | LABORATORY | | | | [address];[place] | | | | | | [address] | | | | + + + + + + + + | Specimen | + + | | + + + + + + + | Performing | Address | City/State/Zipcode | Phone Number | | Organization | | | | + + + + + | [facility] | [address] | [place] [address] | [phone] | + + + + + POC Glucose (06/25/2019 6:18 PM PDT) + + + + + + | Component | Value | Ref Range | Performed | Pathologist | | | | | At | Signature | + + + + + + | Glucose, | 82Comment: Testing | 65 - 99 mg/dL | [facility] | | | POC | performed at [facility];[address] | | LABORATORY | | | | [address];[place], [place] | | | | | | [address] | | | | + + + + + + + + | Specimen | + + | | + + + + + + + | Performing | Address | City/State/Zipcode | Phone Number | | Organization | | | | + + + + + | [facility] | [address] | [place] [address] | [phone] | + + + + + CT Head wo Contrast (06/25/2019 1:50 PM PDT) + + | Specimen | + + | | + + + + + | Impressions | Performed At | + + + | 1. No acute intracranial findings. 2. Severe left maxillary sinus | [facility] | | opacification. Signed by: Daija John, Bimal Christensen | | | Date/Time: 06/25/2019 3:33 PM [...] Testing | 65 - 99 mg/dL | [facility] | | | POC | performed at [facility];[address] | | LABORATORY | | | | [address];[place] | | | | | | [address] | | | | + + + + + + + + | Specimen | + + | | + + + + + + + | Performing | Address | City/State/Zipcode | Phone Number | | Organization | | | | + + + + + | [facility] | [address] | [place] [address] | [phone] | + + + + + Potassium (06/25/2019 11:26 AM PDT) + + + + + + | Component | Value | Ref Range | Performed | Pathologist | | | | | At | Signature | + + + + + + | K | 4.1Comment: Testing | 3.5 - 4.9 | [facility] | | | | performed at [facility];[address] | mmol/L | LABORATORY | | | | [address] [facility];[place], [place] | | | | | | [address] | | | | + + + + + + + + | Specimen | + + | Blood | + + + + + + + | Performing | Address | City/State/Zipcode | Phone Number | | Organization | | | | + + + + + | [facility] | [address] | [place] [address] | [phone] | + + + + + ECHO [...] | | | POC | performed at [facility];[address] | | LABORATORY | | | | [address];[place] | | | | | | [address] | | | | + + + + + + + + | Specimen | + + | | + + + + + + + | Performing | Address | City/State/Zipcode | Phone Number | | Organization | | | | + + + + + | [facility] | [address] | [place] [address] | [phone] | + + + + + Phosphorus (06/25/2019 3:10 AM PDT) + + + + + + | Component | Value | Ref Range | Performed | Pathologist | | | | | At | Signature | + + + + + + | Phosphorus | 2.5Comment: Testing | 2.3 - 4.8 mg/dL | [facility] | | | | performed at [facility];[address] | | LABORATORY | | | | [address];[place] | | | | | | [address] | | | | + + + + + + + + | Specimen | + + | Blood | + + + + + + + | Performing | Address | City/State/Zipcode | Phone Number | | Organization | | | | + + + + + | [facility] | [address] | [place] [address] | [phone] | + + + + + Magnesium (06/25/2019 3:10 AM PDT) + + + + + + | Component | Value | Ref Range | Performed | Pathologist | | | | | At | Signature | + + + + + + | Magnesium | 2.1Comment: Testing | 1.7 - 2.4 mg/dL | [facility] | | | | performed at [facility];[address] | | LABORATORY | | | | [facility];[place], [place] | | | | | | [address] | | | | + + + + + + + + | Specimen | + + | Blood | + + + + + + + | Performing | Address | City/State/Zipcode | Phone Number | | Organization | | | | + + + + + | [facility] | [address] | [place] [address] | [phone] | + + + + + CBC [...] + + + | Red Blood | 4.26 | 3.70 - 5.10 | [...] 0.06Comment: Testing | 0.00 - 0.10 | [facility] | | | Absolute | performed at [facility];[address] | K/uL | LABORATORY | | | | [facility];[place], [place] | | | | | | [address] | | | | + + + + + + + + | Specimen | + + | Blood | + + + + + + + | Performing | Address | City/State/Zipcode | Phone Number | | Organization | | | | + + + + + | [facility] | [address] | [place] [address] | [phone] | + + + + + Basic [...] | >60Comment: GFR <60: | >60 | [facility] | | | GFR | [...] | | | | | performed at [facility];[address] | | | | | | [facility];[place], [place] | | | | | | [address] | | | | + + + + + + + + | Specimen | + + | Blood | + + + + + + + | Performing | Address | City/State/Zipcode | Phone Number | | Organization | | | | + + + + + | [facility] | [address] | [place] [address] | [phone] | + + + + + Potassium (06/24/2019 8:19 PM PDT) + + + + + + | Component | Value | Ref Range | Performed | Pathologist | | | | | At | Signature | + + + + + + | K | 3.6Comment: Testing | 3.5 - 4.9 | [facility] | | | | performed at [facility];[address] | mmol/L | LABORATORY | | | | [address];[place] | | | | | | [address] | | | | + + + + + + + + | Specimen | + + | Blood | + + + + + + + | Performing | Address | City/State/Zipcode | Phone Number | | Organization | | | | + + + + + | [facility] | [address] | [place] [address] | [phone] | + + + + + Phosphorus (06/24/2019 8:19 PM PDT) + + + + + + | Component | Value | Ref Range | Performed | Pathologist | | | | | At | Signature | + + + + + + | Phosphorus | 2.5Comment: Testing | 2.3 - 4.8 mg/dL | [facility] | | | | performed at [facility];[address] | | LABORATORY | | | | [address];[place] | | | | | | [address] | | | | + + + + + + + + | Specimen | + + | Blood | + + + + + + + | Performing | Address | City/State/Zipcode | Phone Number | | Organization | | | | + + + + + | [facility] | [address] | [place] [address] | [phone] | + + + + + Magnesium (06/24/2019 8:19 PM PDT) + + + + + + | Component | Value | Ref Range | Performed | Pathologist | | | | | At | Signature | + + + + + + | Magnesium | 1.7Comment: Testing | 1.7 - 2.4 mg/dL | [facility] | | | | performed at [facility] | | LABORATORY | | | | [facility];[place], [place] | | | | | | [address] | | | | + + + + + + + + | Specimen | + + | Blood | + + + + + + + | Performing | Address | City/State/Zipcode | Phone Number | | Organization | | | | + + + + + | [facility] | [address] | [place] [address] | [phone] | + + + + + POC Glucose (06/24/2019 8:08 PM PDT) + + + + + + | Component | Value | Ref Range | Performed | Pathologist | | | | | At | Signature | + + + + + + | Glucose, | 86Comment: Testing | 65 - 99 mg/dL | [facility] | | | POC | performed at [facility];[address] | | LABORATORY | | | | [address];[place] | | | | | | [address] | | | | + + + + + + + + | Specimen | + + | | + + + + + + + | Performing | Address | City/State/Zipcode | Phone Number | | Organization | | | | + + + + + | [facility] | [address] | [place] [address] | [phone] | + + + + + POC Glucose (06/24/2019 6:13 PM PDT) + + + + + + | Component | Value | Ref Range | Performed | Pathologist | | | | | At | Signature | + + + + + + | Glucose, | 103 (H)Comment: Testing | 65 - 99 mg/dL | [facility] | | | POC | performed at [facility];[address] | | LABORATORY | | | | [address];[place] | | | | | | [address] | | | | + + + + + + + + | Specimen | + + | | + + + + + + + | Performing | Address | City/State/Zipcode | Phone Number | | Organization | | | | + + + + + | [facility] | [address] | [place] [address] | [phone] | + + + + + EEG-Continuous [...] | | | norepinephrine 3 mcg/min (06/24/19 5727) | | | phenylephrine Stopped (06/23/19 1240) | | | propofol infusion 35 mcg/kg/min [...] continuous EEG | | | representing a mjiv-dr-idaptgaq encephalopathy. Diffuse beta | | | activity [...] indicated. Bryan Celis MD | | | [facility] Clinical Neurophysiologist | | + + + [...] | | propofol infusion 35 mcg/kg/min (06/24/19 2882) PRN | | | Meds:.acetaminophen, albuterol-ipratropium, Hypoglycemia [...] continuous EEG | | | representing a lhax-lm-jtpdritf encephalopathy. Diffuse beta | | | activity [...] indicated. Bryan Celis MD | | | [facility] Clinical Neurophysiologist | | + + + [...] 1314) | | | phenylephrine Stopped (06/23/19 9852) | | | propofol infusion 35 mcg/kg/min (06/24/19 6860) PRN | | | Meds:.acetaminophen, albuterol-ipratropium, Hypoglycemia [...] continuous EEG | | | representing a jjtp-dt-wtavttzo encephalopathy. Diffuse beta | | | activity [...] Testing | 65 - 99 mg/dL | [facility] | | | POC | performed at [facility];[address] | | LABORATORY | | | | [address];[place], [place] | | | | | | [address] | | | | + + + + + + + + | Specimen | + + | | + + + + + + + | Performing | Address | City/State/Zipcode | Phone Number | | Organization | | | | + + + + + | [facility] | [address] | [place] [address] | [phone] | + + + + + POC [...] | | | POC | performed at [facility];[address] | | LABORATORY | | | | [address];[place] | | | | | | [address] | | | | + + + + + + + + | Specimen | + + | | + + + + + + + | Performing | Address | City/State/Zipcode | Phone Number | | Organization | | | | + + + + + | [facility] | [address] | [place] [address] | [phone] | + + + + + Phenytoin Level, Total and Free (06/24/2019 9:28 AM PDT) + + + + + + | Component | Value | Ref Range | Performed | Pathologist | | | | | At | Signature | + + + + + + | PHENYTOIN | 15.1Comment: | 10.0 - 20.0 | [facility] | | | TOTAL | | ug/mL [...] 1.6Comment: | 1.0 - 2.0 ug/mL | [facility] | | | FREE | | | LABORATORY | | | | Detection | | | | | | Limit = 0.5Testing | | | | | | performed at [email or web address], | | | | | | [address], [address], | | | | | | [facility] [address] | | | | + + + + + + + + | Specimen | + + | Blood | + + + + + + + | Performing | Address | City/State/Zipcode | Phone Number | | Organization | | | | + + + + + | [facility] | [address] | [place] [address] | [phone] | + + + + + Phosphorus (06/24/2019 5:04 AM PDT) + + + + + + | Component | Value | Ref Range | Performed | Pathologist | | | | | At | Signature | + + + + + + | Phosphorus | 1.8 (L)Comment: Testing | 2.3 - 4.8 mg/dL | [facility] | | | | performed at [facility];[address] | | LABORATORY | | | | [address];[place], [place] | | | | | | [address] | | | | + + + + + + + + | Specimen | + + | Blood | + + + + + + + | Performing | Address | City/State/Zipcode | Phone Number | | Organization | | | | + + + + + | [facility] | [address] | [place] [address] | [phone] | + + + + + Magnesium (06/24/2019 5:04 AM PDT) + + + + + + | Component | Value | Ref Range | Performed | Pathologist | | | | | At | Signature | + + + + + + | Magnesium | 1.9Comment: Testing | 1.7 - 2.4 mg/dL | [facility] | | | | performed at [facility];[address] | | LABORATORY | | | | [address];[place], [place] | | | | | | [address] | | | | + + + + + + + + | Specimen | + + | Blood | + + + + + + + | Performing | Address | City/State/Zipcode | Phone Number | | Organization | | | | + + + + + | [facility] | [address] | [place] [address] | [phone] | + + + + + CBC [...] + + + | Red Blood | 4.31 | 3.70 - 5.10 | [...] | | | Absolute | performed at [facility];[address] | K/uL | LABORATORY | | | | [address];[place] | | | | | | [address] | | | | + + + + + + + + | Specimen | + + | Blood | + + + + + + + | Performing | Address | City/State/Zipcode | Phone Number | | Organization | | | | + + + + + | [facility] | [address] | [place] [address] | [phone] | + + + + + Basic [...] 8.1 (L) | 8.5 - 10.5 | [place] | | | | | mg/dL | LABORATORY | | + + + + + + | Estimated | >60Comment: GFR <60: | >60 | [place] | | | GFR | CHRONIC KIDNEY [...] | | | | | | MDRD [facility] traceable | | | | | | equation.Testing | | | | | | performed at [facility] | | | | | | [facility];[place], [place] | | | | | | [address] | | | | + + + + + + + + | Specimen | + + | Blood | + + + + + + + | Performing | Address | City/State/Zipcode | Phone Number | | Organization | | | | + + + + + | [facility] | [address] | [place] [address] | [phone] | + + + + + Phenytoin [...] [facility] | | | | performed at [facility];[address] | | LABORATORY | | | | [facility];[place], [place] | | | | | | [address] | | | | + + + + + + + + | Specimen | + + | Blood | + + + + + + + | Performing | Address | City/State/Zipcode | Phone Number | | Organization | | | | + + + + + | [facility] | [address] | [place] [address] | [phone] | + + + + + POC [...] | | | POC | performed at [facility];[address] | | LABORATORY | | | | [address];[place] | | | | | | [address] | | | | + + + + + + + + | Specimen | + + | | + + + + + + + | Performing | Address | City/State/Zipcode | Phone Number | | Organization | | | | + + + + + | [facility] | [address] | [place] [address] | [phone] | + + + + + Potassium (06/23/2019 6:39 PM PDT) + + + + + + | Component | Value | Ref Range | Performed | Pathologist | | | | | At | Signature | + + + + + + | K | 4.4Comment: Testing | 3.5 - 4.9 | [facility] | | | | performed at [facility];888 | mmol/L | LABORATORY | | | | [address];[place] | | | | | | [address] | | | | + + + + + + + + | Specimen | + + | Blood | + + + + + + + | Performing | Address | City/State/Zipcode | Phone Number | | Organization | | | | + + + + + | [facility] | [address] | [place] [address] | [phone] | + + + + + Magnesium (06/23/2019 6:39 PM PDT) + + + + + + | Component | Value | Ref Range | Performed | Pathologist | | | | | At | Signature | + + + + + + | Magnesium | 2.2Comment: Testing | 1.7 - 2.4 mg/dL | [facility] | | | | performed at [facility];[address] | | LABORATORY | | | | [address];[place] | | | | | | [address] | | | | + + + + + + + + | Specimen | + + | Blood | + + + + + + + | Performing | Address | City/State/Zipcode | Phone Number | | Organization | | | | + + + + + | [facility] | [address] | [place] [address] | [phone] | + + + + + XR [...] mediastinum | | | below the acquired gqwux-hv-whex into the upper abdomen. Overlying | | [...] + | Kali, Rad Results In - 06/23/2019 6:50 PM PDT [...] the mediastinum below the | | acquired dqafw-ot-ohgd into the upper abdomen. Overlying EKG leads [...] Testing | 65 - 99 mg/dL | [facility] | | | POC | performed at [facility];[address] | | LABORATORY | | | | [address];[place] | | | | | | [address] | | | | + + + + + + + + | Specimen | + + | | + + + + + + + | Performing | Address | City/State/Zipcode | Phone Number | | Organization | | | | + + + + + | [facility] | [address] | [place] [address] | [phone] | + + + + + Lactic Acid (06/23/2019 1:20 PM PDT) + + + + + + | Component | Value | Ref Range | Performed | Pathologist | | | | | At | Signature | + + + + + + | Lactate, | 1.4Comment: Testing | 0.4 - 2.0 | [facility] | | | Serum | performed at [facility];[address] | mmol/L | LABORATORY | | | | [address];[place], [place] | | | | | | [address] | | | | + + + + + + + + | Specimen | + + | Blood | + + + + + + + | Performing | Address | City/State/Zipcode | Phone Number | | Organization | | | | + + + + + | [facility] | [address] | [place] [address] | [phone] | + + + + + Hepatic [...] Testing | 10 - 65 U/L | [facility] | | | | performed at [facility];[address] | | LABORATORY | | | | [address];[place], [place] | | | | | | [address] | | | | + + + + + + + + | Specimen | + + | Blood | + + + + + + + | Performing | Address | City/State/Zipcode | Phone Number | | Organization | | | | + + + + + | [facility] | [address] | [place] [address] | [phone] | + + + + + Procalcitonin [...] | | | | | | at [facility];[address] [place] [address] | | | | | | [facility];[place] [address] | | | | + + + + + + + + | Specimen | + + | Blood | + + + + + + + | Performing | Address | City/State/Zipcode | Phone Number | | Organization | | | | + + + + + | [facility] | [address] | [place] [address] | [phone] | + + + + + POC [...] | | | POC | performed at [facility];[address] | | LABORATORY | | | | [address];[place] | | | | | | [address] | | | | + + + + + + + + | Specimen | + + | | + + + + + + + | Performing | Address | City/State/Zipcode | Phone Number | | Organization | | | | + + + + + | [facility] | [address] | [place] [address] | [phone] | + + + + + POC Glucose (06/23/2019 8:16 AM PDT) + + + + + + | Component | Value | Ref Range | Performed | Pathologist | | | | | At | Signature | + + + + + + | Glucose, | 121 (H)Comment: Testing | 65 - 99 mg/dL | [facility] | | | POC | performed at [facility];[address] | | LABORATORY | | | | [address];[place], [place] | | | | | | [address] | | | | + + + + + + + + | Specimen | + + | | + + + + + + + | Performing | Address | City/State/Zipcode | Phone Number | | Organization | | | | + + + + + | [facility] | [address] | [place] [address] | [phone] | + + + + + Blood [...] | | | | | performed at [facility] | | | | | | [address];[place], [place] | | | | | | [address] | | | | + + + + + + + + | Specimen | + + | | + + + + + + + | Performing | Address | City/State/Zipcode | Phone Number | | Organization | | | | + + + + + | [facility] | [address] | [place] [address] | [phone] | + + + + + Phosphorus (06/23/2019 4:08 AM PDT) + + + + + + | Component | Value | Ref Range | Performed | Pathologist | | | | | At | Signature | + + + + + + | Phosphorus | 4.4Comment: Testing | 2.3 - 4.8 mg/dL | [facility] | | | | performed at [facility];[address] | | LABORATORY | | | | [address];[place] | | | | | | [address] | | | | + + + + + + + + | Specimen | + + | Blood | + + + + + + + | Performing | Address | City/State/Zipcode | Phone Number | | Organization | | | | + + + + + | [facility] | [address] | [place] [address] | [phone] | + + + + + Magnesium (06/23/2019 4:08 AM PDT) + + + + + + | Component | Value | Ref Range | Performed | Pathologist | | | | | At | Signature | + + + + + + | Magnesium | 1.6 (L)Comment: Testing | 1.7 - 2.4 mg/dL | [facility] | | | | performed at [facility];[address] | | LABORATORY | | | | [address];[place] | | | | | | [address] | | | | + + + + + + + + | Specimen | + + | Blood | + + + + + + + | Performing | Address | City/State/Zipcode | Phone Number | | Organization | | | | + + + + + | [facility] | [address] | [place] [address] | [phone] | + + + + + CBC [...] + + + | Red Blood | 4.38 | 3.70 - 5.10 | [...] | | | | | performed at [facility] | | | | | | [address];[place] | | | | | | [address] | | | | + + + + + + + + | Specimen | + + | Blood | + + + + + + + | Performing | Address | City/State/Zipcode | Phone Number | | Organization | | | | + + + + + | [facility] | [address] | [place] [address] | [phone] | + + + + + Basic [...] 7.6 (L) | 8.5 - 10.5 | [facility] | | | | | mg/dL | LABORATORY | | + + + + + + | Estimated | >60Comment: GFR <60: | >60 | [facility] | | | GFR | [...] | | | | | performed at [facility] | | | | | | [facility];[place], [place] | | | | | | [address] | | | | + + + + + + + + | Specimen | + + | Blood | + + + + + + + | Performing | Address | City/State/Zipcode | Phone Number | | Organization | | | | + + + + + | [facility] | [address] | [place] [address] | [phone] | + + + + + EEG (06/23/2019 3:43 AM PDT) + + + | Narrative | Performed At | + + + | Jeana A Monk, Neurodiagnostic Tech 06/23/2019 3:44 | | | [facility] Neurodiagnostic Dept [address] | | | [place] [address] Patient: Steffi Bishop ID: [id number] : | | | 1965 Age: 53 Gender: female Room #: 94240 Physician: | | | Anastasia Argueta Paper Handler: Jeana Goldstein Ref. Physician: Cary | | | Edaurd DO Recording Date: 06/23/2019 Duration: 00:31:48 | | | Report Date: 06/23/2019 2:20 AM Medications: Ativan, | | | Keppra 2000mg loaded in ER at [facility], fentanyl, no sedation | | | History: [...] | | | immediately notified to the bow maker production provider, Dr. Holland. | | | | | + + + Lactic Acid (06/23/2019 1:16 AM PDT) + + + + + + | Component | Value | Ref Range | Performed | Pathologist | | | | | At | Signature | + + + + + + | Lactate, | 0.6Comment: Testing | 0.4 - 2.0 | [facility] | | | Serum | performed at [facility];888 | mmol/L | LABORATORY | | | | [facility];[place], [place] | | | | | | [address] | | | | + + + + + + + + | Specimen | + + | Blood | + + + + + + + | Performing | Address | City/State/Zipcode | Phone Number | | Organization | | | | + + + + + | [facility] | [address] | [place] [address] | [phone] | + + + + + XR [...] | | | pneumothorax. Signed by: Daija Curiel, Zully Sign | | | Date/Time: 06/23/2019 12:23 [...] + | Kali, Rad Results In - 06/23/2019 12:26 AM PDT | [...] | | | | [facility], [address] [facility] | | LABORATORY | | | | Court, [place] | | | | | | [address]Sxtpjok: Testing | | | | | | performed at [facility], [address] | | | | | | [facility], | | | | | | [place] [address] | | | | + + + + + + + + | Specimen | + + | Body Fluid - Sputum | | specimen obtained by | | aspiration | | (specimen) | + + + + + + + | Performing | Address | City/State/Zipcode | Phone Number | | Organization | | | | + + + + + | [facility] | [address] | [place] [address] | [phone] | + + + + + POC Glucose (06/22/2019 11:44 PM PDT) + + + + + + | Component | Value | Ref Range | Performed | Pathologist | | | | | At | Signature | + + + + + + | Glucose, | 144 (H)Comment: Testing | 65 - 99 mg/dL | [facility] | | | POC | performed at [facility];[address] | | LABORATORY | | | | [address];[place] | | | | | | [address] | | | | + + + + + + + + | Specimen | + + | | + + + + + + + | Performing | Address | City/State/Zipcode | Phone Number | | Organization | | | | + + + + + | [facility] | [address] | [place] [address] | [phone] | + + + + + MRSA [...] | | | | | performed at [facility] | | | | | | [address];[place], [place] | | | | | | [address] | | | | + + + + + + + + | Specimen | + + | Tissue - Both | | anterior nares (body | | structure) | + + + + + + + | Performing | Address | City/State/Zipcode | Phone Number | | Organization | | | | + + + + + | [facility] | [address] | [place] [address] | [phone] | + + + + + documented [...] mental status type | + + | [place] coma scale total score 3-8, at hospital [...] PDT | | | | | Starting 06/23/19 at 0518 | | | | | [...] | mL/hr | | | Hours, ONCE, 06/23/19 at | | AM PDT | | [...] For 1 dose, | | | Shameka Marte : rajinder | | | override, | | + +---+ | | | + +---+ | albuterol-ipratropium 2.5-0.5 | | | mg/3 mL nebulizer solution 3 mL | | | 3 mL, Nebulization, RT EVERY 6 | | | HOURS PRN, Shortness of Breath, | | | Starting Shaina 06/22/19 at 2326 | | + +---+ [...] | | | (Daily), First dose on Fri | | | | | [...] | | 20 mg 20 mg, Intravenous, | | 19 10:04 | | | [...] | | | | last modification) on Wed | | | [...] | | | | | Minutes, ONCE, Wed06/23/19 at | | | | | [...] | | | | | | | Wed06/23/19 at 1030, Maximum | | | | [...] | | | | AC, NPO, Daytime 2449-5849 Use | | | | | | | NIGHT DOSE for doses scheduled: | | | | | | | HS, 3AM, Nighttime 0161-2037 | | | | | | | [...] +---------+ +-----+ +---+ | New Bag | 06/23/20 | 2 g | 25 mL/hr | [...] + + +---------+-------+---+ | Rate/Dose Change | 06/25/20 | 3 | 11.3 | | | | 19 8:33 | mcg/min | mL/hr | | | | AM PDT | | | | + + +---------+-------+---+ | Rate/Dose Change | 06/25/20 | 5 | 18.8 | | | [...] PDT | | | | | Starting [facility] 06/22/19 at 2346, | | | | [...] 11:40 | | | | | ONCE, Wed06/23/19 at 1100, For 1 | | AM [...] | | | | | protocol, Starting [facility] 06/22/19 | | | | | | [...] + + +-------+---+ | New Bag | 10/19/20 | 30 | 9.8 | | | [...]
--- OUTSIDE RECORDS SUMMARY | ~2020-05-24 | XMS | Encounter Summary ---
Demographics + + + | Address | [address] [place] [address] | | | [place] [address] | + + + | Home Phone | | + + + | Preferred Language | Unknown | + + + | Marital Status | Single | + + + | Sabianist Affiliation | 1041 | + + + | Race | or | + + + | Ethnic Group | Not or | + + + Author + + + | Author | [facility] | | | and [place] | + + + | Organization | [facility] | [...] Team Providers + +------+ + | Care Barrel Raiser Name | Role | Phone | + +------+ + | Anat Pickett | PCP | | + +------+ + Reason for Visit +--------+--------+ + | Reason | Onset | Comments | | | Date | | +--------+--------+ + | Other | 12/03/ | speak with medical technologist chemistry | | | 2020 | | +--------+--------+ + Encounter Details +--------+ + + + + | Date | Type | Department | Care Team | Description | +--------+ + + + + | 12/03/ | Telephone | [facility] | Anastasia Argueta, | Other (speak with | | 2020 | | NEUROLOGY [address] | MD Alexander JAMES | medical technologist chemistry ) | | | | [address] | [place], [place] | | | | | [place], [place] | [address] | | | | | [address] | [phone] | | | | | [phone] | | | +--------+ + + + [...] PDTJule, is calling regarding Other (speak with medical technologist chemistry ) and would like a call back. Additional Call Details: Patient stated she had 4 seizures last night 12.03.19. Call sherice andrew back to discuss further details at [phone]. If this is a symptom based call, was patient offered triage? Not Applicable If this is a symptom based call and you were unable to immediately transfer the call to a theodora flores motorboat mechanic helper was caller made aware that if at any time she feels it is an emergency they sh ould call 911 or go to the nearest emergency room? not applicable documented in this encounter Plan of Treatment Not on filedocumented as of this encounter Visit Diagnoses Not on filedocumented in this encounter"
--- OUTSIDE RECORDS SUMMARY | ~2020-05-24 | XMS | Encounter Summary ---
Demographics + + + | Address | [address] [place] [address] | | | [place] [address] | + + + | Home Phone | | + + + | Preferred Language | Unknown | + + + | Marital Status | Single | + + + | Taoism Affiliation | 1041 | + + + | Race | or | + + + | Ethnic Group | Not or | + + + Author + + + | Author | [facility] | | | and [place] | + + + | Organization | [facility] | | | and [place] | + + + | Address | Unknown | + + + | Phone | Unavailable | + + + Support + + +---------+ + | Name | Relationship | Address | Phone | + + +---------+ + | Margo Hnison | ECON | Unknown | | + + +---------+ + Care Team Providers + +------+ + | Care Electric Motor Control Assembler Name | Role | Phone | + [...] + + | 09/26/ | Telephone | [facility] | Mickey | Patricia (Documentation | | 2020 | | NEUROLOGY [address] | [address] | ) | | | | [place] | | | | | | [place] | | | | | | [address] | | | | | | [phone] | | | +--------+ + + + [...] request. Omeprazole (PRILOSEC) 20 mg [facility]EC. Fax: [phone]. Fax went through. Telephone Encounter - Seda Arevalo CMA - 09/26/2019 1:47 PM PSTFaxed Rx scripts by Flakito Argueta's request. Indomethacin (INDOCIN) 25 MG cap Phenytoin ( DILANTIN) 100 mg ER cap [facility]. Fax: [phone]. Fax went through. TTelephone Encounter - Seda Arevalo CMA - 09/26/2019 12:49 PM PSTPrinted Lab orders f or patient. She wanted to have labs drawn at [facility] rather then [facility]. Electronically sign ed by Seda Arevalo CMA at 09/26/2019 12:50 PM PSTdocumented in this encounter Plan of Treatment Not on filedocumented as of this encounter Visit Diagnoses Not on filedocumented in this encounter"
--- OUTSIDE RECORDS SUMMARY | ~2020-05-24 | XMS | Encounter Summary ---
Demographics + + + | Address | [address] [place] [address] | | | [place] [address] | + + + | Home Phone | | + + + | Preferred Language | Unknown | + + + | Marital Status | Single | + + + | Tenriism Affiliation | 1041 | + + + | Race | or | + + + | Ethnic Group | Not or | + + + Author + + + | Author | [facility] | | | and [place] | + + + | Organization | [facility] | | | [...] Team Providers + +------+ + | Care Customer Expert Name | Role | Phone | + [...] + + | 01/09/ | Telephone | [facility] | Keenan Holland, | Lab Results | | 2019 | | NEUROLOGY [address] | Wire Galvanizer | | | | | [address] | | | | | | [place], [place] | | | | | | [address] | | | | | | [phone] | | | +--------+ + + + [...] Miscellaneous Notes Telephone Encounter - Keenan Holland, Wire Galvanizer - 01/11/2020 11:33 AM PDTI do not, thank you. I have printed labs and sent to [facility]. I also sent prescriptions to [facility] as well. Thank you ! :)Electronically signed by Keenan Holland Wire Galvanizer at 03/2020 11:33 AM PDTTelephone Encounter - Anastasia Argueta MD - 01/11/2020 11:15 AM PDTLet m e know if u need order, it should be in system , if not let me know. Thanks mannava elephone Enco pooja - Keenan Holland, Wire Galvanizer - 01/11/2020 11:06 AM PDTCalled Steffi back, she st ated yes she got blood work done at [facility] but doesn't know if that was recent or A little while ago. She states she is sorry she is very forgetful and she doesn't think she got recent lab work done but will. I let her know if was ok and thank you. Will send her lab order to [facility] so she can get them done. [...] like a call back. Additional Call Details: [facility] labs received fax, however the patient has not done th e labs requested at their clinic elephone Encounter - Keenan Harley, Wire Galvanizer - 01/10/2020 12:39 PM PDTRequested Lab results [facility] docu mented in this encounter Plan of Treatment Not on filedocumented as of this encounter Visit Diagnoses Not on filedocumented in this encounter"
--- OUTSIDE RECORDS SUMMARY | ~2020-05-24 | XMS | Encounter Summary ---
Demographics + + + | Address | [address] [place] [address] | | | [place] [address] | + + + | Home Phone [...] + + + | Author | [facility] | | | and [place] | + + + | Organization | [facility] | | | [...] Providers + +------+ + | Care Assistant To The Ceo Name | Role | Phone | + [...] + + | 09/20/ | Telephone | [facility] | Keenan Holland, | Appointment | | 2019 | | NEUROLOGY [address] | Travel Registered Nurse Nicu | | | | | [address] | | | | | | [place], [place] | | | | | | [address] | | | | | | [phone] | | | +--------+ + + + [...] Miscellaneous Notes Telephone Encounter - Keenan Holland, Travel Registered Nurse Nicu - 09/20/2019 2:34 PM PST#1 Call- L eft message for pt to call us back to confirm. documented in this encounter Plan of Treatment Not on filedocumented as of this encounter Visit Diagnoses Not on filedocumented in this encounter"
--- OUTSIDE RECORDS SUMMARY | ~2020-05-24 | XMS | Encounter Summary ---
Demographics + + + | Address | [address] [place] [address] | | | [place] [address] | + + + | Home Phone [...] Author + + + | Author | [facility] | | | and [place] | + + + | Organization | [facility] | | [...] Team Providers + +------+ + | Care Flower Shop Manager Name | Role | Phone | [...] + | 10/04/ | Telephone | [facility] | Keenan Holland, | Results | | 2020 | | NEUROLOGY [address] | Mortgage Loan Processor | | | | | [address] | | | | | | [place] | | | | | | [address] | | | | | | [phone] | | | +--------+ + + + [...] Miscellaneous Notes Telephone Encounter - Keenan Holland Mortgage Loan Processor - 10/04/2019 12:54 PM PSTReceived l ab results from [facility]. Given to doctor for review. documented in this encounter Plan of Treatment Not on filedocumented as of this encounter Visit Diagnoses Not on filedocumented in this encounter"
--- OUTSIDE RECORDS SUMMARY | ~2020-05-24 | XMS | Encounter Summary ---
Demographics + + + | Address | [address] [place] [address] | | | [place] [address] | + + + | Home Phone [...] Team Providers + +------+ + | Care Freezing Machine Operator Name | Role | Phone [...] | | | | | Tonic-clonic | [address] | [address] | | | | | seizure | [address] | [place] | | | | | disorder | [address], | [place], [place] | | | | | ([facility]) | [place] [address] | [address] Phone: | | | | | | Phone: | [phone] | | | | | | [phone] | Fax: | | | | | | Fax: | [phone] | | | | | | [phone] | | + +--------+ + + + + Encounter Details +--------+ + + + + | Date | Type | Department | Care Team | Description | +--------+ + + + + | 01/09/ | Virtual | [facility] | Anastasia Argueta, | Chronic migraine | | 2020 | Office | NEUROLOGY [address] | MD Alexander JAMES | (Primary Dx); | | | Visit | [address] | [place], [place] | Seizure disorder | | | | [place], [place] | [address] | ([facility]); Neuropathy | | | | [address] | [phone] | | | | | [phone] | | | +--------+ + + + [...] current dose Clinical discussion length: 11-20 min (84207) Patient has not been seen in office [...] use. Patient was ad mitted to [facility] in June 2019 with status epilepticus [...] the last visit. [facility]. Per admission [...] did lab work for Keppra at her [facility] last week but results are not available [...]
--- OUTSIDE RECORDS SUMMARY | ~2020-05-24 | XMS | Clinical Summary ---
Demographics + + + | Address | [address] [place] [address] | | | [place] [address] | + + + | Home Phone [...] Phone | + + +---------+ + | Magro Hinson | ECON | Unknown | | + + +---------+ + Care Team Providers + +------+ + | Care Grain Unloader Name | Role | Phone | + [...] +---------+--------+ | [employer] | CAREOR | [id number] | | [id number] | | Medica | | HMO | EGON | | 019-Pr | 0 | | id | | | [place]UM[place] | | esent | | | | | | [place] | | | | | | | | PACIFI | | | | | | | | C INVENTORY CONTROL COORDINATOR | | | | | | | | MDCD | | | | | | | | HMO [place] | | | | | | + +--------+ +--------+ +---------+--------+ | [employer] | MODA | [id number] | | [phone] | | Medica | | MEDICAID HMO | HEALTH | | 020-Pr | 1 | | id | | | MDCD | | esent | | | | | | HMO [place] | | | | | | + +--------+ +--------+ +---------+--------+ | [facility] | IHS | [id number] | | | | Indemn | | [...] Person | Self | [birth year] | [address] | | | al/Fam | | 1965 | [phone] | [address] [place] | | | [place] | | | [address] (Home) | [address] | + +--------+ +--------+ + + | Steffi Bishop | Person | Self | [birth year] | | [address] | | | al/Fam | | 1965 | [phone] | [address], [place] | | | [place] | | | 6 (Home) | [address] | + +--------+ +--------+ + + | Steffi Bishop | Person | Self | [birth year] | | [address] | | | al/Fam | | 1965 | [phone] | [address], [place] | | | [place] | | | 6 (Home) | [address] | + +--------+ +--------+ + + Advance Directives + + + + + | Type | Date Recorded | Patient | Explanation | | | | Chassis Mechanic | | + + + + + | Power of | | | | | Research Geneticist | | | | + + + [...]
--- OUTSIDE RECORDS SUMMARY | ~2020-05-24 | XMS | Encounter Summary ---
Demographics + + + | Address | [address] [place] [address] | | | [place] [address] | + + + | Home Phone [...] Author + + + | Author | [facility] | | | and [place] | + + + | Organization | [facility] | | [...] Team Providers + +------+ + | Care Compliance Program Manager Name | Role | Phone | [...] + + | 10/24/ | Telephone | [facility] | Thuan Pulliam | New Patient (Same | | 2019 | | GASTROENTEROLOGY | MD Araceli [address] | day cancellation ) | | | | [address] | [place] [address] | | | | | [place], [place] | [phone] | | | | | [phone] | | | | | | [phone] | | | +--------+ + + + [...] is currently in the emergency room in [facility] from a seizure. Will call at a later time to reschedule If this is a symptom based call, was patient offered triage? Not Applicable If this is a symptom based call and you were unable to immediately transfer the call to a theodora flores wrap yarn sorter was caller made aware that if at any time she feels it is an emergency they sh ould call 911 or go to the nearest emergency room? not applicable documented in this encounter Plan of Treatment Not on filedocumented as of this encounter Visit Diagnoses Not on filedocumented in this encounter"
--- OUTSIDE RECORDS SUMMARY | 2020-05-24 15:58 | XMS ---
PreManage Notification: SATHYA CUETO Security Overhead Cleaner Events No recent Security Events currently on file CRITERIA MET - [facility] - Has Care Guidelines - [facility] - 2 Visits in 30 Days CARE PROVIDERS RAINA RETANA [facility] PHONE: [phone] SHEFALI GOLDBERG [facility] 06/21/2018-[facility] PHONE: Unknown RUBY WYTEENA Clinic/Center: [facility] 12/26/2018-[facility] AT PHONE: [phone] ART SMITH [facility] [facility]/Multiple Needle Stitcher [facility] PHONE: [phone] CAROLYN VERGARA MD Psychiatry \T\ Neurology: Psychiatry 07/25/2019-Current PHONE: Unknown Team, [place] [facility]/Multiple Needle Stitcher Located Within [facility] PHONE: Unknown Name [facility] 06/23/2019-Current PHONE: [phone] Guidelines Source: [facility] Guidelines Date: 01/18/2019 Care Coordination: Client receives services at [facility]. For discharge planning and coordination of care, please contact client\T\#39;s\T\nbsp;Multiple Needle Stitcher: [facility]\T\nbsp; [phone] Care History Medical/Surgical 05/22/2020 [facility] - PATIENT HAS WORKED WITH SATHYA DOUGLASTUTORING ASSISTANT AT [facility] IN THE PAST. - PATIENT HAS A HX OF SUBSTANCE USE - PATIENT HAS NOT PICKED UP HER KEPPRA MEDICATION FROM THE PHARMACY SINCE DECEMBER 2019. - AND SERVICES AT [facility] HAVE MADE SEVERAL ATTEMPTS TO CONTACT PATIENT - PATIENT WAS UTILIZING A\T\D SERVICES AT [facility] UNTIL DISCHARGED ON 03/19/2020 DUE TO NO CONTACT. - PATIENT IS CURRENTLY COUCH SURFING AND STAYS WITH HER DAUGHTER AT TIMES. - PATIENT HAS A NEUROLOGIST DR MAYO BORREGO- [phone]- PATIENT WAS LAST SEEN ON - DID NOT SHOW UP TO APT ON 01/12/2020. 07/19/2018 [facility] \T\middot;\T\nbsp; PATIENT- [facility] ELIGIBLE \T\middot;\T\nbsp; PLEASE REFER PATIENT TO [facility] FOR NON EMERGENT MEDICAL NEEDS. \T\middot;\ T\nbsp; [facility] CAN SEE PATIENTS SAME DAY FOR APTS IF PATIENT CALLS FIRST THING IN THE MORNING. E.D. VISIT COUNT (12 MO.) 7 [facility] TOTAL 7 NOTE: Visits indicate total known visits. ED/UCC VISIT TRACKING (12 MO.) 05/24/2020 15:56 [facility] TYPE: Emergency COMPLAINT: - HEADACHE 05/21/2020 11:51 [facility] TYPE: Emergency COMPLAINT: - ALTERED LOC DIAGNOSES: - Major depressive disorder, single episode, unspecified - Other penitentiary (current) drug therapy - Allergy status to other drugs, medicaments and biological sub - Epilepsy, unspecified, not intractable, without status epilep - Patient's noncompliance with other medical treatment and davina 04/25/2020 03:58 [facility] TYPE: Emergency COMPLAINT: - POSS SEIZURE DIAGNOSES: - Allergy status to analgesic agent status - Other psychoactive substance abuse, uncomplicated - Major depressive disorder, single episode, unspecified - Other buttermaker continuous churn (current) drug therapy - Epilepsy, unspecified, not intractable, without status epilep - Blood alcohol level of less than 20 mg/100 ml - Allergy status to other drugs, medicaments and biological sub 12/22/2019 09:30 [facility] TYPE: Emergency COMPLAINT: - SEIZURE DIAGNOSES: - Unspecified bacterial pneumonia - Allergy status to analgesic agent status - Unspecified convulsions - Other buttermaker continuous churn (current) drug therapy - Major depressive disorder, single episode, unspecified - Epilepsy, unspecified, not intractable, with status epileptic 10/24/2019 07:06 [facility] TYPE: Emergency COMPLAINT: - SEIZURE DIAGNOSES: - Allergy status to analgesic agent status - Major depressive disorder, single episode, unspecified - Epilepsy, unspecified, not intractable, without status epilep - Other penitentiary (current) drug therapy - Allergy status to other drugs, medicaments and biological sub 07/24/2019 10:33 [facility] TYPE: Emergency COMPLAINT: - NUMBNESS AND TINGLEING 06/22/2019 20:02 [facility] TYPE: Emergency COMPLAINT: - POSS SEUZURE DIAGNOSES: - Allergy status to other drugs, medicaments and biological sub - Unspecified convulsions - Allergy status to analgesic agent status - Other buttermaker continuous churn (current) drug therapy - Nicotine dependence, unspecified, uncomplicated - Epilepsy, unspecified, not intractable, with status epileptic - Major depressive disorder, single episode, unspecified INPATIENT VISIT TRACKING (12 MO.) 12/22/2019 16:46 [facility] TYPE: Internal Medicine DIAGNOSES: - Status Epilepticus - Epilepsy, unspecified, not intractable, with status epileptic 07/24/2019 10:34 [facility] TYPE: Observation COMPLAINT: - FACIAL NUMBNESS DIAGNOSES: - Other seasonal allergic rhinitis - Epilepsy, unspecified, not intractable, without status epilep - NIHSS score 2 - Anesthesia of skin - Allergy status to other drugs, medicaments and biological sub - Other penitentiary (current) drug therapy - Major depressive disorder, single episode, unspecified - Headache - Post-traumatic stress disorder, unspecified - Other visual disturbances [email or web address]
== END 2020-05-24 17:11 | disposition left against medical advice (07) ==
LOC: ED 15:55
DX: Z53.21 Procedure and treatment not carried out due to patient leaving prior to being seen by health care provider (principal)

== ENCOUNTER 2020-07-22 14:41 | Emergency (ER) | payer OTHER ==
[~2020-07-22] VITALS: Ht 162.6 cm; Wt 54.5 kg
[2020-07-22] MEDS ORDERED: LEVETIRACETAM750 MG PO (14:56)
== END 2020-07-22 17:12 | disposition home or self-care (01) ==
LOC: ED 14:41
DX: S09.90XA Unspecified injury of head, initial encounter (principal); F32.9 Major depressive disorder, single episode, unspecified; H53.8 Other visual disturbances; F17.200 Nicotine dependence, unspecified, uncomplicated; Z88.8 Allergy status to other drugs, medicaments and biological substances; W01.198A Fall on same level from slipping, tripping and stumbling with subsequent striking against other object, initial encounter; Z79.899 Other long term (current) drug therapy
CPT/HCPCS: 70450; 99284-25

== ENCOUNTER 2020-09-27 09:49 | Emergency (ER) | payer OTHER ==
[~2020-09-27] VITALS: Ht 162.6 cm; Wt 54.5 kg
[~2020-09-27 09:49] MED LIST changes: +LEVETIRACETAM750 MG PO
--- OUTSIDE RECORDS SUMMARY | 2020-09-27 09:52 | XMS ---
PreManage Notification: SATHYA CUETO Security Mower Operator Events 1 event(s) in the past 18 months Most recent security events: Elopement at [facility] 05/24/2020 15:56 - Other Details: PATIENT ROBERTO SNYDER. CRITERIA MET - 6 ED Visits in 6 Months CARE PROVIDERS RAINA RETANA [facility] PHONE: [phone] SHEFALI GOLDBERG Family Medicine 06/21/2018-Current PHONE: Unknown RUBY [facility] Clinic/Center: [facility] 12/26/2018-Critical access hospital AT PHONE: [phone] ART SMITH Rn Diabetes/Vice President Research [facility] PHONE: [phone] CAROLNY VERGARA MD Psychiatry \T\ Neurology: Psychiatry 07/25/2019-Current PHONE: Unknown Team, Carlton Rn Diabetes/Vice President Research [facility] PHONE: Unknown NATALIE [facility]/[place] 06/23/2019-[facility] PHONE: [phone] Care Guidelines exist for the following facilities: [facility] ( 01/18/2019 ) Care History Medical/Surgical 05/22/2020 [facility] - PATIENT HAS WORKED WITH SATHYA DOUGLASSAP GATHERER AT [facility] IN THE PAST. - PATIENT HAS A HX OF SUBSTANCE USE - PATIENT HAS NOT PICKED UP HER KEPPRA MEDICATION FROM THE PHARMACY SINCE DECEMBER 2019. - AND SERVICES AT [facility] HAVE MADE SEVERAL ATTEMPTS TO CONTACT PATIENT - PATIENT WAS UTILIZING A\T\D SERVICES AT [facility] UNTIL DISCHARGED ON 03/19/2020 DUE TO NO CONTACT. - PATIENT IS CURRENTLY COUCH SURFING AND STAYS WITH HER DAUGHTER AT TIMES. - PATIENT HAS A NEUROLOGIST DR HUBER -CLEMENT- [phone]- PATIENT WAS LAST SEEN ON - DID NOT SHOW UP TO APT ON 01/12/2020. 07/19/2018 [facility] \T\middot;\T\nbsp; PATIENT- [facility] ELIGIBLE \T\middot;\T\nbsp; PLEASE REFER PATIENT TO [facility] FOR NON EMERGENT MEDICAL NEEDS. \T\middot;\ T\nbsp; [facility] CAN SEE PATIENTS SAME DAY FOR APTS IF PATIENT CALLS FIRST THING IN THE MORNING. E.D. VISIT COUNT (12 MO.) 8 [facility]. TOTAL 8 NOTE: Visits indicate total known visits. ED/UCC VISIT TRACKING (12 MO.) 09/27/2020 09:49 [facility] [place] TYPE: Emergency COMPLAINT: - SEIZURE 07/22/2020 14:42 [facility] [place] TYPE: Emergency COMPLAINT: - HEAD PAIN/ INJ DIAGNOSES: - Headache, unspecified - Fall on same level from slipping, tripping and stumbling with subsequent striking against other object, initial encounter - Major depressive disorder, single episode, unspecified - Other visual disturbances - Unspecified injury of head, initial encounter - Nicotine dependence, unspecified, uncomplicated - Allergy status to other drugs, medicaments and biological substances - Other sow farm barn technician (current) drug therapy 06/10/2020 06:37 [facility] [place] TYPE: Emergency COMPLAINT: - POSSIBLE SEIZURE DIAGNOSES: - Allergy status to other drugs, medicaments and biological substances - Nicotine dependence, unspecified, uncomplicated - Major depressive disorder, single episode, unspecified - Epilepsy, unspecified, not intractable, without status epilepticus - Epilepsy, unspecified, not intractable, without status epilepticus - Other nursing home (current) drug therapy - Patient's noncompliance with other medical treatment and regimen 05/24/2020 15:56 [facility] [place] TYPE: Emergency COMPLAINT: - HEADACHE DIAGNOSES: - Procedure and treatment not carried out due to patient leaving prior to being seen by health care provider - Procedure and treatment not carried out due to patient leaving prior to being seen by health care provider - Headache 05/21/2020 11:51 [facility] [place] TYPE: Emergency COMPLAINT: - ALTERED LOC DIAGNOSES: - Major depressive disorder, single episode, unspecified - Other sow farm barn technician (current) drug therapy - Allergy status to other drugs, medicaments and biological substances - Epilepsy, unspecified, not intractable, without status epilepticus - Patient's noncompliance with other medical treatment and regimen 04/25/2020 03:58 [facility] [place] TYPE: Emergency COMPLAINT: - POSS SEIZURE DIAGNOSES: - Allergy status to analgesic agent - Other psychoactive substance abuse, uncomplicated - Major depressive disorder, single episode, unspecified - Other nursing home (current) drug therapy - Epilepsy, unspecified, not intractable, without status epilepticus - Blood alcohol level of less than 20 mg/100 ml - Allergy status to other drugs, medicaments and biological substances 12/22/2019 09:30 [facility] [place] TYPE: Emergency COMPLAINT: - SEIZURE DIAGNOSES: - Unspecified bacterial pneumonia - Allergy status to analgesic agent - Unspecified convulsions - Other nursing home (current) drug therapy - Major depressive disorder, single episode, unspecified - Epilepsy, unspecified, not intractable, with status epilepticus 10/24/2019 07:06 [facility] [place] TYPE: Emergency COMPLAINT: - SEIZURE DIAGNOSES: - Allergy status to analgesic agent - Major depressive disorder, single episode, unspecified - Epilepsy, unspecified, not intractable, without status epilepticus - Other sow farm barn technician (current) drug therapy - Allergy status to other drugs, medicaments and biological substances INPATIENT VISIT TRACKING (12 MO.) 12/22/2019 16:46 [facility] DIAGNOSES: - Status Epilepticus - Epilepsy, unspecified, not intractable, with status epilepticus [email or web address]
== END 2020-09-27 12:26 | disposition home or self-care (01) ==
LOC: ED 09:49
DX: G40.909 Epilepsy, unspecified, not intractable, without status epilepticus (principal); S00.83XA Contusion of other part of head, initial encounter; W19.XXXA Unspecified fall, initial encounter; F17.200 Nicotine dependence, unspecified, uncomplicated; Z88.8 Allergy status to other drugs, medicaments and biological substances
CPT/HCPCS: 70450; 80053; 80185; 85025; 99285-25; J7040

== ENCOUNTER 2020-10-05 06:45 | Emergency (ER) | payer OTHER ==
[~2020-10-05] VITALS: Ht 162.6 cm; Wt 54.4 kg
--- OUTSIDE RECORDS SUMMARY | 2020-10-05 06:48 | XMS ---
PreManage Notification: SATHYA CUETO Security Forensic Social Worker Events 1 event(s) in the past 18 months Most recent security events: Elopement at [facility] 05/24/2020 15:56 - Other Details: PATIENT LEFT [place]RO[place]. CRITERIA MET - 6 ED Visits in 6 Months - [facility] - 2 Visits in 30 Days CARE PROVIDERS RAINA RETANA [facility] PHONE: [phone] SHEFALI GOLDBERG Family Medicine 06/21/2018-Current PHONE: Unknown RUBY [facility]/Center: [facility] 12/26/2018-[facility] AT PHONE: [phone] ART SMITH Chassis Mechanic/Geophysical Laboratory Supervisor [facility] PHONE: [phone] CAROLYN VERGARA MD Psychiatry \T\ Neurology: Psychiatry 07/25/2019-[facility] PHONE: Unknown TeamArt Chassis Mechanic/Geophysical Laboratory Supervisor [facility] PHONE: Unknown NATALIE [facility] 06/23/2019-[facility] PHONE: [phone] Care Guidelines exist for the following facilities: [facility] ( 01/18/2019 ) Care History Medical/Surgical 05/22/2020 [facility] - PATIENT HAS WORKED WITH SATHYA DOUGLASEVENT DESIGNER AT [facility] IN THE PAST. - PATIENT HAS A HX OF SUBSTANCE USE - PATIENT HAS NOT PICKED UP HER KEPPRA MEDICATION FROM THE PHARMACY SINCE DECEMBER 2019. - AND MH SERVICES AT [facility] HAVE MADE SEVERAL ATTEMPTS TO CONTACT PATIENT - PATIENT WAS UTILIZING A\T\D SERVICES AT [facility] UNTIL DISCHARGED ON 03/19/2020 DUE TO NO CONTACT. - PATIENT IS CURRENTLY COUCH SURFING AND STAYS WITH HER DAUGHTER AT TIMES. - PATIENT HAS A NEUROLOGIST DR HUBER -CLEMENT- [phone]- PATIENT WAS LAST SEEN ON - DID NOT SHOW UP TO APT ON 01/12/2020. 07/19/2018 [facility] \T\middot;\T\nbsp; PATIENT- [facility] ELIGIBLE \T\middot;\T\nbsp; PLEASE REFER PATIENT TO [facility] FOR NON EMERGENT MEDICAL NEEDS. \T\middot;\ T\nbsp; [facility] CAN SEE PATIENTS SAME DAY FOR APTS IF PATIENT CALLS FIRST THING IN THE MORNING. E.D. VISIT COUNT (12 MO.) 9 [facility] TOTAL 9 NOTE: Visits indicate total known visits. ED/UCC VISIT TRACKING (12 MO.) 10/05/2020 06:45 [facility] [place] TYPE: Emergency COMPLAINT: - SEIZURES 09/27/2020 09:49 [facility] [place] TYPE: Emergency COMPLAINT: - SEIZURE DIAGNOSES: - Epilepsy, unspecified, not intractable, without status epilepticus - Unspecified fall, initial encounter - Allergy status to analgesic agent - Nicotine dependence, unspecified, uncomplicated - Allergy status to other drugs, medicaments and biological substances - Contusion of other part of head, initial encounter 07/22/2020 14:42 [facility] [place] TYPE: Emergency COMPLAINT: - HEAD PAIN/ INJ DIAGNOSES: - Headache, unspecified - Fall on same level from slipping, tripping and stumbling with subsequent striking against other object, initial encounter - Major depressive disorder, single episode, unspecified - Headache, unspecified - Other visual disturbances - Allergy status to other drugs, medicaments and biological substances - Unspecified injury of head, initial encounter - Nicotine dependence, unspecified, uncomplicated - Allergy status to other drugs, medicaments and biological substances - Other retirement (current) drug therapy 06/10/2020 06:37 [facility] [place] TYPE: Emergency COMPLAINT: - POSSIBLE SEIZURE DIAGNOSES: - Allergy status to other drugs, medicaments and biological substances - Nicotine dependence, unspecified, uncomplicated - Major depressive disorder, single episode, unspecified - Epilepsy, unspecified, not intractable, without status epilepticus - Epilepsy, unspecified, not intractable, without status epilepticus - Other termination clerk (current) drug therapy - Patient's noncompliance with other medical treatment and regimen - Allergy status to other drugs, medicaments and biological substances 05/24/2020 15:56 [facility] [place] TYPE: Emergency COMPLAINT: - HEADACHE DIAGNOSES: - Procedure and treatment not carried out due to patient leaving prior to being seen by health care provider - Procedure and treatment not carried out due to patient leaving prior to being seen by health care provider - Headache 05/21/2020 11:51 [facility] TYPE: Emergency COMPLAINT: - ALTERED LOC DIAGNOSES: - Major depressive disorder, single episode, unspecified - Other retirement (current) drug therapy - Allergy status to other drugs, medicaments and biological substances - Epilepsy, unspecified, not intractable, without status epilepticus - Patient's noncompliance with other medical treatment and regimen 04/25/2020 03:58 [facility] [place] TYPE: Emergency COMPLAINT: - POSS SEIZURE DIAGNOSES: - Allergy status to analgesic agent - Other psychoactive substance abuse, uncomplicated - Major depressive disorder, single episode, unspecified - Other termination clerk (current) drug therapy - Epilepsy, unspecified, not intractable, without status epilepticus - Blood alcohol level of less than 20 mg/100 ml - Allergy status to other drugs, medicaments and biological substances 12/22/2019 09:30 [facility] [place] TYPE: Emergency COMPLAINT: - SEIZURE DIAGNOSES: - Unspecified bacterial pneumonia - Allergy status to analgesic agent - Unspecified convulsions - Other retirement (current) drug therapy - Major depressive disorder, single episode, unspecified - Epilepsy, unspecified, not intractable, with status epilepticus 10/24/2019 07:06 [facility] [place] TYPE: Emergency COMPLAINT: - SEIZURE DIAGNOSES: - Allergy status to analgesic agent - Major depressive disorder, single episode, unspecified - Epilepsy, unspecified, not intractable, without status epilepticus - Other termination clerk (current) drug therapy - Allergy status to other drugs, medicaments and biological substances INPATIENT VISIT TRACKING (12 MO.) 12/22/2019 16:46 [facility] TYPE: Internal Medicine DIAGNOSES: - Status Epilepticus - Epilepsy, unspecified, not intractable, with status epilepticus [email or web address]
== END 2020-10-05 08:59 | disposition home or self-care (01) ==
LOC: ED 06:45
DX: G40.909 Epilepsy, unspecified, not intractable, without status epilepticus (principal); F17.200 Nicotine dependence, unspecified, uncomplicated; Z88.8 Allergy status to other drugs, medicaments and biological substances; Z79.899 Other long term (current) drug therapy
CPT/HCPCS: 70450; 80053; 80185; 85025; 99284-25

== ENCOUNTER 2020-11-30 07:21 | Emergency (ER) | payer OTHER ==
[~2020-11-30] VITALS: Ht 162.6 cm; Wt 55.8 kg
[~2020-11-30 07:21] MED LIST changes: +ZOLOFT50 MG PO
--- OUTSIDE RECORDS SUMMARY | 2020-11-30 07:22 | XMS ---
PreManage Notification: SATHYA CUETO Security Truck Leasing Manager Events 1 event(s) in the past 18 months Most recent security events: Elopement at [facility] 05/24/2020 15:56 - Other Details: PATIENT LEFT MONRO[place]. CRITERIA MET - 6 ED Visits in 6 Months - [facility] - 2 Visits in 30 Days CARE PROVIDERS RAINA RETANA [facility] PHONE: [phone] SHEFALI GOLDBERG Family Medicine 06/21/2018-Current PHONE: Unknown RUBY [facility]/Center: [facility] 12/26/2018-[facility] AT PHONE: [phone] ART SMITH Cold Rolling Supervisor/Academic Support Assistant [facility] PHONE: [phone] CAROLYN VERGARA MD Psychiatry \T\ Neurology: Psychiatry 07/25/2019-[facility] PHONE: Unknown TeamArt Cold Rolling Supervisor/Academic Support Assistant [facility] PHONE: Unknown NATALIE [facility] 06/23/2019-[facility] PHONE: [phone] Care Guidelines exist for the following facilities: [facility] ( 10/21/2020 ) Care History Medical/Surgical 10/09/2020 [facility] - CHW CONTACTED RN- VAMP LINER SATHYA AT [facility] IN REGARDS TO CONCERNS FOR PATIENT AND MEDICATION MANAGEMENT. 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 - PATIENT HAS A PEER RECOVERY MENTOR- OSCAR AT [facility] AND A COUNSELOR JOHN AT [facility] - [facility] A\T\amp;D LAST MET WITH PATIENT ON 09/19/20 - PATIENT WAS APPROVED FOR INPATIENT TREATMENT BUT DID NOT GO 05/22/2020 [facility] - PATIENT HAS WORKED WITH SATHYA WAITER/WAITRESS ROOM SERVICE AT [facility] IN THE PAST. - PATIENT HAS A HX OF SUBSTANCE USE - PATIENT HAS NOT PICKED UP HER KEPPRA MEDICATION FROM THE PHARMACY SINCE DECEMBER 2019. - AND MH SERVICES AT [facility] HAVE MADE SEVERAL ATTEMPTS TO CONTACT PATIENT - PATIENT WAS UTILIZING A\T\D SERVICES AT [facility] UNTIL DISCHARGED ON 03/19/2020 DUE TO NO CONTACT. - PATIENT IS CURRENTLY COUCH SURFING AND STAYS WITH HER DAUGHTER AT TIMES. - PATIENT HAS A NEUROLOGIST DR HUBER -CLEMENT- [phone]- PATIENT WAS LAST SEEN ON - DID NOT SHOW UP TO APT ON 01/12/2020. 07/19/2018 [facility] \T\middot;\T\nbsp; PATIENT- [facility] ELIGIBLE \T\middot;\T\nbsp; PLEASE REFER PATIENT TO [facility] FOR NON EMERGENT MEDICAL NEEDS. \T\middot;\ T\nbsp; [facility] CAN SEE PATIENTS SAME DAY FOR APTS IF PATIENT CALLS FIRST THING IN THE MORNING. E.D. VISIT COUNT (12 MO.) [facility] TOTAL 10 NOTE: Visits indicate total known visits. ED/UCC VISIT TRACKING (12 MO.) 11/30/2020 07:21 [facility] [place] TYPE: Emergency COMPLAINT: - SEIZURE 11/06/2020 10:10 [facility] [place] TYPE: Emergency COMPLAINT: - SEIZURE 10/05/2020 06:45 [facility] [place] [facility] [place] TYPE: Emergency COMPLAINT: - SEIZURES DIAGNOSES: - Other retirement (current) drug therapy - Epilepsy, unspecified, not intractable, without status epilepticus - Allergy status to other drugs, medicaments and biological substances - Nicotine dependence, unspecified, uncomplicated 09/27/2020 09:49 [facility] [place] [facility] [place] TYPE: Emergency COMPLAINT: - SEIZURE DIAGNOSES: - Epilepsy, unspecified, not intractable, without status epilepticus - Unspecified fall, initial encounter - Allergy status to analgesic agent - Nicotine dependence, unspecified, uncomplicated - Allergy status to other drugs, medicaments and biological substances - Contusion of other part of head, initial encounter 07/22/2020 14:42 [facility] [place] [facility] [place] TYPE: Emergency COMPLAINT: - HEAD PAIN/ [...] not intractable, without status epilepticus - Other medical terminologist (current) drug therapy - Patient's noncompliance with [...] depressive disorder, single episode, unspecified - Other medical terminologist (current) drug therapy - Allergy status to other drugs, medicaments and biological substances - Epilepsy, unspecified, not intractable, without status epilepticus - Patient's noncompliance with other medical treatment and regimen 04/25/2020 03:58 [facility] [place] TYPE: Emergency COMPLAINT: - POSS SEIZURE DIAGNOSES: - Allergy status to analgesic agent - Other psychoactive substance abuse, uncomplicated - Major depressive disorder, single episode, unspecified - Other medical terminologist (current) drug therapy - Epilepsy, unspecified, not [...] Epilepsy, unspecified, not intractable, with status epilepticus INPATIENT VISIT TRACKING (12 MO.) 11/06/2020 10:11 [facility] [place] TYPE: Observation COMPLAINT: - SEIZURES DIAGNOSES: - Acquired absence of both cervix and uterus - Epilepsy, unspecified, not intractable, with status epilepticus - Acquired absence of other specified parts of digestive tract - Major depressive disorder, single episode, unspecified - Allergy status to other drugs, medicaments and biological substances - Nicotine dependence, unspecified, uncomplicated - Other stimulant abuse, uncomplicated - Post-traumatic stress disorder, unspecified 12/22/2019 16:46 [facility] TYPE: Internal Medicine DIAGNOSES: - Status Epilepticus - Epilepsy, unspecified, not intractable, with status epilepticus [email or web address]
[2020-11-30] MEDS ORDERED: DILANTIN100 MG PO (18:50)
[2020-11-30] MEDS ORDERED: KEPPRA500 MG PO (18:50)
== END 2020-11-30 19:30 | disposition home or self-care (01) ==
LOC: ED 07:21
DX: G40.909 Epilepsy, unspecified, not intractable, without status epilepticus (principal); F15.10 Other stimulant abuse, uncomplicated; F17.200 Nicotine dependence, unspecified, uncomplicated; Z88.6 Allergy status to analgesic agent; Z88.8 Allergy status to other drugs, medicaments and biological substances; Z79.899 Other long term (current) drug therapy
CPT/HCPCS: 80053; 80185; 85025; 96374; 96375; 96376; 99284-25; J1953; J2060; J7040; Q2009

== ENCOUNTER → 2020-12-30 | Emergency (ER) | payer OTHER ==
[~2020-12-30] VITALS: Ht 162.6 cm; Wt 55.9 kg
--- OUTSIDE RECORDS SUMMARY | 2020-12-30 10:54 | XMS ---
PreManage Notification: SATHYA CUETO Security Crown Ironer Operator Events 1 event(s) in the past 18 months Most recent security events: Elopement at [facility] 05/24/2020 15:56 - Other Details: PATIENT LEFT MONROEA. CRITERIA MET - 6 ED Visits in 6 Months - [facility] - 2 Visits in 30 Days CARE PROVIDERS RAINA RETANA [facility] PHONE: [phone] SHEFALI GOLDBERG Family Medicine 06/21/2018-Current PHONE: Unknown RUBY [facility]/Center: [facility] 12/26/2018-[facility] AT PHONE: [phone] ART SMITH Wheel Press Clerk/Fence Post Driver [facility] PHONE: [phone] CAROLYN VERGARA MD Psychiatry \T\ Neurology: Psychiatry 07/25/2019-[facility] PHONE: Unknown TeamArt Wheel Press Clerk/Fence Post Driver [facility] PHONE: Unknown NATALIE [facility] 06/23/2019-[facility] PHONE: [phone] Care Guidelines exist for the following facilities: [facility] ( 10/21/2020 ) Care History Medical/Surgical 12/02/2020 [facility] - W CONTACTED SATHYA DOUGLASCCO & PRESIDENT AT [facility]-DISCUSSED ONGOING PATIENT CONCERNS ED VISITS. - PATIENT IS WORKING WITH OSCAR - PEER RECOVERY MENTOR AT [facility]-LAST APT 11/12/20 AND PATIENT HAS IS WORKING WITH JOHN COUNSELOR AT [facility]-LAST APT 11/06/20. - PATIENT LAST FILLED MEDICATION AT [facility] PHARM[facility] 11/08/20. - PATIENT DOES NOT FOLLOW UP WITH PCP - RN SHELL FREEZING MACHINE OPERATOR AT [facility] ARE AWARE OF PATIENT AND HAVE TRIED TO CONTACT PATIENT BUT UNABLE TO CONTACT PATIENT OUTSIDE OF [facility]. 10/09/2020 [facility] - W CONTACTED RN- AUTOMOTIVE WELDER SATHYA AT [facility] IN REGARDS TO CONCERNS FOR PATIENT AND MEDICATION MANAGEMENT. - PATIENT DID CAMPUS MANAGER KEPPRA REFILL ON 10/07/2020 PER [facility]ARM[facility]. - PATIENT HAS A PEER RECOVERY MENTOR- OSCAR AT [facility] AND A COUNSELOR JOHN AT [facility] - [facility] A\T\amp;D LAST MET WITH PATIENT ON 09/19/20 - PATIENT WAS APPROVED FOR INPATIENT TREATMENT BUT DID NOT GO 05/22/2020 [facility] - PATIENT HAS WORKED WITH SATHYA DOUGLASCCO & PRESIDENT AT [facility] IN THE PAST. - PATIENT HAS A HX OF SUBSTANCE USE - PATIENT HAS NOT PICKED UP HER KEPPRA MEDICATION FROM THE PHARMACY SINCE DECEMBER 2019. - AND SERVICES AT [facility] HAVE MADE SEVERAL ATTEMPTS TO CONTACT PATIENT - PATIENT WAS UTILIZING A\T\D SERVICES AT [facility] UNTIL DISCHARGED ON 03/19/2020 DUE TO NO CONTACT. - PATIENT IS CURRENTLY COUCH SURFING AND STAYS WITH HER DAUGHTER AT TIMES. - PATIENT HAS A NEUROLOGIST DR MAYO BORREGO- [phone]- PATIENT WAS LAST SEEN ON - DID NOT SHOW UP TO APT ON 01/12/2020. E.D. VISIT COUNT (12 MO.) [address] [facility] [address] [facility] TOTAL 10 NOTE: Visits indicate total known visits. ED/UCC VISIT TRACKING (12 MO.) 12/30/2020 10:52 [facility] [place] TYPE: Emergency COMPLAINT: - FALL 11/30/2020 07:21 [facility] [place] TYPE: Emergency COMPLAINT: - SEIZURE DIAGNOSES: - Nicotine dependence, unspecified, uncomplicated - Other stimulant abuse, uncomplicated - Epilepsy, unspecified, not intractable, without status epilepticus - Allergy status to analgesic agent - Unspecified convulsions - Allergy status to other drugs, medicaments and biological substances - Other retirement (current) drug therapy 11/06/2020 10:[address] [facility] [address] [facility] [place] TYPE: Emergency COMPLAINT: - SEIZURE 10/05/2020 06:45 [facility] [place] TYPE: Emergency COMPLAINT: - SEIZURES DIAGNOSES: - Other oysterman (current) drug therapy - Epilepsy, unspecified, not intractable, without status epilepticus - Allergy status to other drugs, medicaments and biological substances - Nicotine dependence, unspecified, uncomplicated 09/27/2020 09:[address] [facility] [facility] [place] TYPE: Emergency COMPLAINT: - SEIZURE [...] not intractable, without status epilepticus - Other retirement (current) drug therapy - Patient's noncompliance with [...] depressive disorder, single episode, unspecified - Other oysterman (current) drug therapy - Allergy status to [...] biological substances INPATIENT VISIT TRACKING (12 MO.) 11/06/2020 10:11 [...] abuse, uncomplicated - Post-traumatic stress disorder, unspecified [email or web address]
== END ==
LOC: ED 10:51
DX: S00.03XA Contusion of scalp, initial encounter (principal); E87.1 Hypo-osmolality and hyponatremia; R56.9 Unspecified convulsions; F17.200 Nicotine dependence, unspecified, uncomplicated; Z88.6 Allergy status to analgesic agent; Z88.8 Allergy status to other drugs, medicaments and biological substances; Z79.899 Other long term (current) drug therapy; Z20.822 Contact with and (suspected) exposure to COVID-19; W19.XXXA Unspecified fall, initial encounter
CPT/HCPCS: 31500; 43752; 51702; 70450; 71045; 72125; 80048; 80053; 80185; 81001; 85025; 94002; 99285-25; C9803; J1953; J2060; J2704; J3010; J3480; J7131; Q2009; U0003

== ENCOUNTER 2021-01-08 18:17 | Emergency (ER) | payer OTHER ==
[~2021-01-08] VITALS: Ht 162.6 cm; Wt 56.8 kg
--- OUTSIDE RECORDS SUMMARY | 2021-01-08 18:22 | XMS ---
PreManage Notification: SATHYA CUETO Security Bmx Rider Events 1 event(s) in the past 18 months Most recent security events: Elopement at [facility] 05/24/2020 15:56 - Other Details: PATIENT LEFT MONROEA. CRITERIA MET - 6 ED Visits in 6 Months - [facility] - 2 Visits in 30 Days CARE PROVIDERS RAINA RETANA [facility] PHONE: [phone] SHEFALI GOLDBERG Family Medicine 06/21/2018-Current PHONE: Unknown RUBY [facility]/Center: [facility] 12/26/2018-[facility] AT PHONE: [phone] ART SMITH Control Systems Eng/Inspector Rag Sorting [facility] PHONE: [phone] CAROLYN VERGARA MD Psychiatry \T\ Neurology: Psychiatry 07/25/2019-[facility] PHONE: Unknown TeamArt Control Systems Eng/Inspector Rag Sorting [facility] PHONE: Unknown NATALIE [facility] 06/23/2019-[facility] PHONE: [phone] Care Guidelines exist for the following facilities: [facility] ( 10/21/2020 ) Care History Medical/Surgical 12/02/2020 [facility] - W CONTACTED SATHYA DOUGLASTYPING OFFICE WORKER AT [facility]-DISCUSSED ONGOING PATIENT CONCERNS ED VISITS. - PATIENT IS WORKING WITH OSCAR - PEER RECOVERY MENTOR AT [facility]-LAST APT 11/12/20 AND PATIENT HAS IS WORKING WITH JOHN COUNSELOR AT [facility]-LAST APT 11/06/20. - PATIENT LAST FILLED MEDICATION AT [facility]Y 11/08/20. - PATIENT DOES NOT FOLLOW UP WITH PCP - RN ORACLE FINANCIALS CONSULTANT AT [facility] ARE AWARE OF PATIENT AND HAVE TRIED TO CONTACT PATIENT BUT UNABLE TO CONTACT PATIENT OUTSIDE OF [facility]. 10/09/2020 [facility] - W CONTACTED RN- GIS ANALYST SATHYA AT [facility] IN REGARDS TO CONCERNS FOR PATIENT AND MEDICATION MANAGEMENT. - PATIENT DID POLISHER EYEGLASS FRAMES KEPPRA REFILL ON 10/07/2020 PER [facility]. - PATIENT HAS A PEER RECOVERY MENTOR- OSCAR AT [facility] AND A COUNSELOR JOHN AT [facility] - [facility] A\T\amp;D LAST MET WITH PATIENT ON 09/19/20 - PATIENT WAS APPROVED FOR INPATIENT TREATMENT BUT DID NOT GO 05/22/2020 [facility] - PATIENT HAS WORKED WITH SATHYA DOUGLASTYPING OFFICE WORKER AT [facility] IN THE PAST. - PATIENT HAS A HX OF SUBSTANCE USE - PATIENT HAS NOT PICKED UP HER KEPPRA MEDICATION FROM THE PHARMACY SINCE DECEMBER 2019. - AND SERVICES AT [facility] HAVE MADE SEVERAL ATTEMPTS TO CONTACT PATIENT - PATIENT WAS UTILIZING A\T\D SERVICES AT [facility] UNTIL DISCHARGED ON 03/19/2020 DUE TO NO CONTACT. - PATIENT IS CURRENTLY COUCH SURFING AND STAYS WITH HER DAUGHTER AT TIMES. - PATIENT HAS A NEUROLOGIST DR AMYO BORREGO- [phone]- PATIENT WAS LAST SEEN ON - DID NOT SHOW UP TO APT ON 01/12/2020. E.D. VISIT COUNT (12 MO.) [address] [facility] [address] TOTAL 11 NOTE: Visits indicate total known visits. ED/UCC VISIT TRACKING (12 MO.) 01/08/2021 18:18 [facility] [place] TYPE: Emergency COMPLAINT: - UNRESPOSIVE 12/30/2020 10:52 [facility] [place] TYPE: Emergency COMPLAINT: - FALL DIAGNOSES: - Nicotine dependence, unspecified, uncomplicated - Unspecified fall, initial encounter - Hypo-osmolality and hyponatremia - Other director long term care (current) drug therapy - Contusion of scalp, initial encounter - Unspecified convulsions - Allergy status to analgesic agent - Allergy status to other drugs, medicaments and biological substances 11/30/2020 07:21 [facility] [place] TYPE: Emergency COMPLAINT: - SEIZURE DIAGNOSES: - Nicotine dependence, unspecified, uncomplicated - Other stimulant abuse, uncomplicated - Epilepsy, unspecified, not intractable, without status epilepticus - Allergy status to analgesic agent - Unspecified convulsions - Allergy status to other drugs, medicaments and biological substances - Other director long term care (current) drug therapy 11/06/2020 10:10 [facility] [place] TYPE: Emergency COMPLAINT: - SEIZURE 10/05/2020 06:45 [facility] [place] TYPE: Emergency COMPLAINT: - SEIZURES DIAGNOSES: - Other halfway (current) drug therapy - Epilepsy, unspecified, not intractable, without status epilepticus - Allergy status to other drugs, medicaments and biological substances - Nicotine dependence, unspecified, uncomplicated 09/27/2020 09:49 [facility] [place] TYPE: Emergency [...] drugs, medicaments and biological substances - Other director long term care (current) drug therapy 06/10/2020 06:37 [facility] [place] TYPE: Emergency COMPLAINT: - POSSIBLE SEIZURE DIAGNOSES: - Allergy status to other drugs, medicaments and biological substances - Nicotine dependence, unspecified, uncomplicated - Major depressive disorder, single episode, unspecified - Epilepsy, unspecified, not intractable, without status epilepticus - Epilepsy, unspecified, not intractable, without status epilepticus - Other halfway (current) drug therapy - Patient's noncompliance with [...] depressive disorder, single episode, unspecified - Other director long term care (current) drug therapy - Allergy status to other drugs, medicaments and biological substances - Epilepsy, unspecified, not intractable, without status epilepticus - Patient's noncompliance with other medical treatment and regimen 04/25/2020 03:58 [facility] [place] TYPE: Emergency COMPLAINT: - POSS SEIZURE DIAGNOSES: - Allergy status to analgesic agent - Other psychoactive substance abuse, uncomplicated - Major depressive disorder, single episode, unspecified - Other halfway (current) drug therapy - Epilepsy, unspecified, not intractable, without status epilepticus - Blood alcohol level of less than 20 mg/100 ml - Allergy status to other drugs, medicaments and biological substances INPATIENT VISIT TRACKING (12 MO.) 12/30/2020 15:11 [facility] TYPE: Internal Medicine DIAGNOSES: - seizures - Epilepsy, unspecified, intractable, without status epilepticus - Chronic migraine without aura, not intractable, without status migrainosus - Epilepsy, unspecified, not intractable, without status epilepticus - Unspecified fall, subsequent encounter - Contusion of scalp, initial encounter - Hypo-osmolality and hyponatremia - Alcohol abuse, in remission - Hemicrania continua 11/06/2020 10:11 [facility] [place] TYPE: Observation [...] abuse, uncomplicated - Post-traumatic stress disorder, unspecified [email or web address]
[2021-01-08] MEDS ORDERED: LEVETIRACETAM750 MG PO (18:46)
--- NOTE | 2021-01-09 07:13 | EKG ---
[facility] [address] [place] [address] Signed Normal sinus rhythm Left axis deviation Pulmonary disease pattern Incomplete right bundle branch block T wave abnormality, consider anterior ischemia Prolonged QT Abnormal ECG When compared with ECG of 06-NOV-2020 14:23, QRS axis shifted left Confirmed by AKASH HOBBS MD ([id number]) on 01/09/2021 7:13:40 AM Electronically Signed By: AKASH HOBBS MD 01/09/21 0713 PATIENT NAME: SATHYA CUETO Electrocardiogram DATE OF : 65 PHYSICIAN: AKASH HOBBS MD REPORT #: [id number] REPORT IS CONFIDENTIAL AND NOT TO BE RELEASED WITHOUT AUTHORIZATION
== END 2021-01-08 21:11 | disposition home or self-care (01) ==
LOC: ED 18:17
DX: G40.909 Epilepsy, unspecified, not intractable, without status epilepticus (principal); S00.83XA Contusion of other part of head, initial encounter; E87.6 Hypokalemia; Z91.19 Patient's noncompliance with other medical treatment and regimen; X58.XXXA Exposure to other specified factors, initial encounter; F17.200 Nicotine dependence, unspecified, uncomplicated; Z91.030 Bee allergy status; Z88.6 Allergy status to analgesic agent; Z88.8 Allergy status to other drugs, medicaments and biological substances; Z79.899 Other long term (current) drug therapy
CPT/HCPCS: 70450; 71045; 80053; 81001; 83735; 85025; 93005; 93010; 99285-25

== ENCOUNTER 2021-01-29 14:12 | Emergency (ER) | payer OTHER ==
[~2021-01-29] VITALS: Ht 162.6 cm; Wt 68.3 kg
--- OUTSIDE RECORDS SUMMARY | 2021-01-29 14:16 | XMS ---
PreManage Notification: SATHYA CUETO Security Manager Science Events 1 event(s) in the past 18 months Most recent security events: Elopement at [facility] 05/24/2020 15:56 - Other Details: PATIENT LEFT MONROEA. CRITERIA MET - 6 ED Visits in 6 Months - [facility] - 2 Visits in 30 Days CARE PROVIDERS RAINA RETANA [facility] PHONE: [phone] SHEFALI GOLDBERG Family Medicine 06/21/2018-Current PHONE: Unknown RUBY [facility]/Center: [facility] 12/26/2018-[facility] AT PHONE: [phone] ART SMITH Pit Slagman/Toy Assembler [facility] PHONE: [phone] CAROLYN VERGARA MD Psychiatry \T\ Neurology: Psychiatry 07/25/2019-[facility] PHONE: Unknown TeamArt Pit Slagman/Toy Assembler [facility] PHONE: Unknown NATALIE [facility] 06/23/2019-[facility] PHONE: [phone] Care Guidelines exist for the following facilities: [facility] ( 10/21/2020 ) Care History Medical/Surgical 12/02/2020 [facility] - W CONTACTED SATHYA DOUGLASTOWER TECHNICIAN AT [facility]-DISCUSSED ONGOING PATIENT CONCERNS ED VISITS. - PATIENT IS WORKING WITH OSCAR - PEER RECOVERY MENTOR AT [facility]-LAST APT 11/12/20 AND PATIENT HAS IS WORKING WITH JOHN COUNSELOR AT [facility]-LAST APT 11/06/20. - PATIENT LAST FILLED MEDICATION AT [facility] 11/08/20. - PATIENT DOES NOT FOLLOW UP WITH PCP - RN FLOWER SHOP LABORER/DESIGNER AT [facility] ARE AWARE OF PATIENT AND HAVE TRIED TO CONTACT PATIENT BUT UNABLE TO CONTACT PATIENT OUTSIDE OF [facility]. 10/09/2020 [facility] - W CONTACTED RN- HOSPITAL SOCIAL WORKER SATHYA AT [facility] IN REGARDS TO CONCERNS FOR PATIENT AND MEDICATION MANAGEMENT. - PATIENT DID ROUTE CONTRACTOR KEPPRA REFILL ON 10/07/2020 PER [facility]. - PATIENT HAS A PEER RECOVERY MENTOR- OSCAR AT [facility] AND A COUNSELOR JOHN AT [facility] - [facility] A\T\amp;D LAST MET WITH PATIENT ON 09/19/20 - PATIENT WAS APPROVED FOR INPATIENT TREATMENT BUT DID NOT GO 05/22/2020 [facility] - PATIENT HAS WORKED WITH SATHYA DOUGLASTOWER TECHNICIAN AT [facility] IN THE PAST. - PATIENT HAS A HX OF SUBSTANCE USE - PATIENT HAS NOT PICKED UP HER KEPPRA MEDICATION FROM THE PHARMACY SINCE DECEMBER 2019. - AND SERVICES AT [facility] HAVE MADE SEVERAL ATTEMPTS TO CONTACT PATIENT - PATIENT WAS UTILIZING A\T\D SERVICES AT [facility] UNTIL DISCHARGED ON 03/19/2020 DUE TO NO CONTACT. - PATIENT IS CURRENTLY COUCH SURFING AND STAYS WITH HER DAUGHTER AT TIMES. - PATIENT HAS A NEUROLOGIST DR MAYO BORREGO- [phone]- PATIENT WAS LAST SEEN ON - DID NOT SHOW UP TO APT ON 01/12/2020. E.D. VISIT COUNT (12 MO.) [address] [facility] [address] TOTAL 12 NOTE: Visits indicate total known visits. ED/UCC VISIT TRACKING (12 MO.) 01/29/2021 14:14 [facility] [place] TYPE: Emergency COMPLAINT: - CARDIC ISSUE 01/08/2021 18:18 [facility] [place] TYPE: Emergency COMPLAINT: - UNRESPOSIVE DIAGNOSES: - Nicotine dependence, unspecified, uncomplicated - Bee allergy status - Exposure to other specified factors, initial encounter - Other principal biostatistician (current) drug therapy - Allergy status to analgesic agent - Hypokalemia - Allergy status to other drugs, medicaments and biological substances - Contusion of other part of head, initial encounter - Patient's noncompliance with other medical treatment and regimen - Epilepsy, unspecified, not intractable, without status epilepticus 12/30/2020 10:52 [facility] [place] TYPE: Emergency COMPLAINT: - FALL DIAGNOSES: - Nicotine dependence, unspecified, uncomplicated - Unspecified fall, initial encounter - Hypo-osmolality and hyponatremia - Other principal biostatistician (current) drug therapy - Contusion of scalp, initial encounter - Unspecified convulsions - Allergy status to analgesic agent - Allergy status to other drugs, medicaments and biological substances 11/30/2020 07:21 [facility] [place] TYPE: Emergency COMPLAINT: - SEIZURE DIAGNOSES: - Nicotine dependence, unspecified, uncomplicated - Other stimulant abuse, uncomplicated - Epilepsy, unspecified, not intractable, without status epilepticus - Allergy status to analgesic agent - Unspecified convulsions - Allergy status to other drugs, medicaments and biological substances - Other longterm (current) drug therapy 11/06/2020 10:10 [facility] [place] TYPE: Emergency COMPLAINT: - SEIZURE 10/05/2020 06:45 [facility] [place] TYPE: Emergency COMPLAINT: - SEIZURES DIAGNOSES: - Other principal biostatistician (current) drug therapy - Epilepsy, unspecified, not [...] part of head, initial encounter 07/22/2020 14:[address] [facility] [address] [facility] [place] TYPE: Emergency COMPLAINT: - HEAD [...] drugs, medicaments and biological substances - Other longterm (current) drug therapy 06/10/2020 06:37 [facility] [place] TYPE: Emergency COMPLAINT: - POSSIBLE SEIZURE DIAGNOSES: - Allergy status to other drugs, medicaments and biological substances - Nicotine dependence, unspecified, uncomplicated - Major depressive disorder, single episode, unspecified - Epilepsy, unspecified, not intractable, without status epilepticus - Epilepsy, unspecified, not intractable, without status epilepticus - Other principal biostatistician (current) drug therapy - Patient's noncompliance with [...] care provider - Headache 05/21/2020 11:51 [facility] [place] TYPE: Emergency COMPLAINT: - ALTERED LOC DIAGNOSES: - Major depressive disorder, single episode, unspecified - Other longterm (current) drug therapy - Allergy status to other drugs, medicaments and biological substances - Epilepsy, unspecified, not intractable, without status epilepticus - Patient's noncompliance with other medical treatment and regimen 04/25/2020 03:[address] [facility] [address] [facility] [place] TYPE: Emergency COMPLAINT: - POSS SEIZURE DIAGNOSES: - Allergy status to analgesic agent - Other psychoactive substance abuse, uncomplicated - Major depressive disorder, single episode, unspecified - Other principal biostatistician (current) drug therapy - Epilepsy, unspecified, not intractable, without status epilepticus - Blood alcohol level of less than 20 mg/100 ml - Allergy status to other drugs, medicaments and biological substances INPATIENT VISIT TRACKING (12 MO.) 12/30/2020 15:11 [facility] TYPE: Internal Medicine DIAGNOSES: - seizures - Epilepsy, unspecified, intractable, without status epilepticus - Chronic migraine without aura, not intractable, without status migrainosus - Epilepsy, unspecified, not intractable, without status epilepticus - Unspecified fall, subsequent encounter - Contusion of scalp, initial encounter - Hypo-osmolality and hyponatremia - Alcohol abuse, in remission - Hemicrania continua 11/06/2020 10:[address] [facility] [facility] [place] TYPE: Observation COMPLAINT: - SEIZURES DIAGNOSES: [...] abuse, uncomplicated - Post-traumatic stress disorder, unspecified [email or web address]
--- NOTE | 2021-01-30 12:38 | EKG ---
[facility] [address] [facility] [address] [place], [place] [address] Signed Sinus tachycardia Right bundle branch block Abnormal ECG When compared with ECG of 08-JAN-2021 18:46, Questionable change in QRS duration Confirmed by SEAN GIRON DO ([id number]) on 01/30/2021 12:38:13 PM Electronically Signed By: SEAN GIRON DO 01/30/21 1238 PATIENT NAME: SATHYA CUETO Electrocardiogram DATE OF : 65 PHYSICIAN: SEAN GIRON DO REPORT #: [id number] REPORT IS CONFIDENTIAL AND NOT TO BE RELEASED WITHOUT AUTHORIZATION
== END 2021-01-29 19:10 | disposition short-term general hospital (02) ==
LOC: ED 14:12
DX: I46.9 Cardiac arrest, cause unspecified (principal); G93.1 Anoxic brain damage, not elsewhere classified; Z20.822 Contact with and (suspected) exposure to COVID-19; F17.200 Nicotine dependence, unspecified, uncomplicated; Z79.899 Other long term (current) drug therapy; Z91.030 Bee allergy status; Z88.6 Allergy status to analgesic agent
CPT/HCPCS: 36600; 43752; 51702; 71045; 80053; 82803; 83605; 84484; 85025; 93005; 93010; 94002; 99285-25; C9803; J0171; J2704; J7030; J7121; U0003